=== PATIENT | female | born 1950 | race Caucasian/White ===

== ENCOUNTER 2017-09-11 11:50 | Inpatient (IN) | payer OTHER, MEDICARE ==
[~2017-09-11] VITALS: Ht 165.1 cm; Wt 50.0 kg
[2017-09-11] VITALS (7 sets, daily range): BP systolic 106–126; BP diastolic 55–62; PULSE 107–119; RESP 18–24; TEMP 97.8–98.5; O2SAT 97–100
[~2017-09-11 11:50] MED LIST: FLUTI110I INH; LEVO750T3 PO; PRED20 PO; ROLLER WALKER1 MI1; SPIRCAP INH; VENTAER INH
--- NOTE | 2017-09-11 12:28 | PD ---
HPI Chief Complaint: General Weakness Time Seen by Provider: 12:09 Travel History International Travel<30 days: No Contact w/Intl Traveler<30days: No Traveled to known affect area: No History of Present Illness HPI 66 years old female complains of generalized malaise and weakness. Patient states that the symptoms started months ago. Patient states that the symptom is worse today. Patient complains of chronic cough from time. Patient denies any headache. Patient denies any chest pain or shortness of breath. Patient denies abdominal pain. Patient denies any nausea vomiting diarrhea. Patient denies any dysuria or frequency. Patient states that she had chronic ulcer lesions on the feet. Patient has been seen by personal physician for that. Patient states that she is not on any antibiotics recently. Patient has history of COPD. Patient is a smoker. EMS was called this morning. Accu-Chek blood sugar at the scene was 37. Patient was given D10 by EMS. Recheck blood sugar 170. Patient denies any history of diabetes or taking any diabetic medication. Patient denies any history of hypoglycemia. Patient states that she has not been eating much or drinking much recently. Patient denies any fever chills. Patient complains of burning pain on the right foot. PFSH Past Medical History Respiratory: Yes Social History Tobacco Use: No Allergies-Medications (Allergen,Severity, Reaction): Coded Allergies: No Known Allergies (Verified Allergy, Unknown, 07/24/17) Reported Meds & Prescriptions Reported Meds & Active Scripts Active Roller Walker (Misc. Devices) 1 Mis Mis Ea .ROUTE NOW With seat if possible. Ventolin Hfa 18 GM Inh (Albuterol Sulfate) 90 Mcg/Act Aer 2 Puff INH Q4-6H PRN 30 Days Review of Systems General / Constitutional: No: Fever Eyes: No: Visual changes HENT: No: Headaches Cardiovascular: No: Chest Pain or Discomfort Respiratory: No: Shortness of Breath Gastrointestinal: No: Abdominal Pain Genitourinary: No: Dysuria Musculoskeletal: Positive: Pain Skin: No Rash Neurologic: No: Weakness Psychiatric: No: Depression Endocrine: No: Polydipsia Hematologic/Lymphatic: No: Easy Bruising Physical Exam Narrative GENERAL: Thin patient, no acute distress. SKIN: Focused skin assessment warm/dry. HEAD: Normocephalic. EYES: No scleral icterus. No injection or drainage. NECK: Supple, trachea midline. No JVD or lymphadenopathy. CARDIOVASCULAR: Regular rate and rhythm without murmurs, gallops, or rubs. RESPIRATORY: Breath sounds equal bilaterally. No accessory muscle use. GASTROINTESTINAL: Abdomen soft, non-tender, nondistended. MUSCULOSKELETAL: No cyanosis, or edema. Patient has several healing ulcers on the right foot with mild redness noted in the lateral aspect the right foot. BACK: Nontender without obvious deformity. No CVA tenderness. Neurologic exam: Patient's awake and alert oriented 3. No obvious focal neurological deficit. Data Data Last Documented VS Vital Signs Date Time Temp Pulse Resp B/P (MAP) Pulse Ox O2 Delivery O2 Flow Rate FiO2 09/11/17 14:40 22 99 Room Air 09/11/17 14:38 98.5 119 106/59 (75) Orders Orders Lactic Acid (09/11/17 12:18) Electrocardiogram (09/11/17 12:19) Complete Blood Count With Diff (09/11/17 12:19) Comprehensive Metabolic Panel (09/11/17 12:19) Creatine Kinase (Cpk) (09/11/17 12:19) Troponin I (09/11/17 12:19) B-Type Natriuretic Peptide (09/11/17 12:19) Prothrombin Time / Inr (Pt) (09/11/17 12:19) Act Partial Throm Time (Ptt) (09/11/17 12:19) Blood Culture (09/11/17 12:19) Urinalysis - C+S If Indicated (09/11/17 12:19) Thyroid Stimulating Hormone (09/11/17 12:19) Chest, Single Ap (09/11/17 12:19) Iv Access Insert/Monitor (09/11/17 12:19) Ecg Monitoring (09/11/17 12:19) Oximetry (09/11/17 12:19) Sodium Chlor 0.9% 1000 Ml Inj (Ns 1000 M (09/11/17 12:30) Dextrose 50% In [place] (Vial) Inj (D50w (Vi (09/11/17 13:30) Dext 5%-Nacl 0.45% 1000 Ml Inj (D5w-1/2 (09/11/17 13:30) D5-Ns + Kcl 20 Meq Inj (D5-Ns + Kcl 20 M (09/11/17 14:30) Potassium Chloride (Kcl) (09/11/17 14:30) Potassium Chlor 20 Meq Premix (Kcl 20 Me (09/11/17 14:30) Potassium Chloride Eff (K-Lyte Cl Eff) (09/11/17 15:30) Admit Order (Ed Use Only) (09/11/17 16:18) Labs Laboratory Tests Test 09/11/17 13:33 09/11/17 13:38 09/11/17 14:30 White Blood Count 8.4 TH/MM3 Red Blood Count 3.10 MIL/MM3 Hemoglobin 11.3 GM/DL Hematocrit 34.9 % Mean Corpuscular Volume 112.5 FL Mean Corpuscular Hemoglobin 36.5 PG Mean Corpuscular Hemoglobin Concent 32.5 % Red Cell Distribution Width 17.2 % Platelet Count 107 TH/MM3 Mean Platelet Volume 8.4 FL Neutrophils (%) (Auto) 90.3 % Lymphocytes (%) (Auto) 3.8 % Monocytes (%) (Auto) 4.9 % Eosinophils (%) (Auto) 0.7 % Basophils (%) (Auto) 0.3 % Neutrophils # (Auto) 7.6 TH/MM3 Lymphocytes # (Auto) 0.3 TH/MM3 Monocytes # (Auto) 0.4 TH/MM3 Eosinophils # (Auto) 0.1 TH/MM3 Basophils # (Auto) 0.0 TH/MM3 CBC Comment AUTO DIFF Differential Total Cells Counted 100 Neutrophils % (Manual) 81 % Band Neutrophils % 10 % Lymphocytes % 5 % Monocytes % 4 % Neutrophils # (Manual) 7.6 TH/MM3 Differential Comment FINAL DIFF MANUAL Platelet Estimate LOW Platelet Morphology Comment NORMAL Target Cells 1+ Stomatocytes 1+ Prothrombin Time 66.3 SEC Prothromb Time International Ratio 6.6 RATIO Activated Partial Thromboplast Time 50.4 SEC Blood Urea Nitrogen 7 MG/DL Creatinine 0.31 MG/DL Random Glucose 70 MG/DL Total Protein 5.6 GM/DL Albumin 2.3 GM/DL Calcium Level 7.6 MG/DL Alkaline Phosphatase 370 U/L Aspartate Amino Transf (AST/SGOT) 220 U/L Alanine Aminotransferase (ALT/SGPT) 58 U/L Total Bilirubin 1.5 MG/DL Sodium Level 123 MEQ/L Potassium Level 2.5 MEQ/L Chloride Level 85 MEQ/L Carbon Dioxide Level 17.7 MEQ/L Anion Gap 20 MEQ/L Estimat Glomerular Filtration Rate 214 ML/MIN Total Creatine Kinase 120 U/L Troponin I LESS THAN 0.02 NG/ML B-Type Natriuretic Peptide 66 PG/ML Thyroid Stimulating Hormone 3rd Gen 0.672 uIU/ML Lactic Acid Level 1.2 mmol/L Urine Color YELLOW Urine Turbidity CLEAR Urine pH 5.5 Urine Specific [place] 1.020 Urine Protein 30 mg/dL Urine Glucose (UA) 70 mg/dL Urine Ketones 150 mg/dL Urine Occult Blood SMALL Urine Nitrite NEG Urine Bilirubin SMALL Urine Urobilinogen 2.0 MG/DL Urine Leukocyte Esterase NEG Urine RBC 1 /hpf Urine WBC 1 /hpf Urine Mucus FEW /lpf Microscopic Urinalysis Comment CULT NOT INDICATED Urine Opiates Screen NEG Urine Barbiturates Screen NEG Urine Amphetamines Screen NEG Urine Benzodiazepines Screen NEG Urine Cocaine Screen NEG Urine Cannabinoids Screen NEG MDM Medical Decision Making Medical Screen Exam Complete: Yes Emergency Medical Condition: Yes Interpretation(s) Last Impressions Chest X-Ray 09/11/17 1219 Signed Impressions: Service Date/Time: September 12:36 - CONCLUSION: 1. Old bilateral rib fractures. 2. No acute cardiomegaly disease. Brian De Souza MD 1515 p.m. CBC WBC 8.4. Hemoglobin 7.3 hematocrit 34.9. MCV 112.5. 90 neutrophil. Sodium 123. Potassium 2.5. Chloride 85. Bicarbonate 17.7. Anion gap 20. Creatinine 0.31. Glucose 70. Lactate acid 1.2. Calcium 7.6. Total bili 1.5. AST 220. ALT 58. Alk phosphatase 370. Cardiac enzymes are normal. INR 6.6. UA negative. Differential Diagnosis Differential diagnosis including hypoglycemia, dehydration, electrolyte imbalance, pneumonia, UTI, sepsis. Narrative Course 66 years old female with generalized malaise and weakness, history of COPD. Patient was hypoglycemic this morning. Patient was given D10 by EMS. KCl 40 mEq by mouth given. KCl 20 mEq IV given. D5 normal saline solution with 20 KCl per liter at 100 cc an hour. Diagnosis Primary Impression: Hyponatremia Additional Impressions: Hypokalemia Coagulopathy Hypoglycemia Transaminitis Admitting Information Admitting Physician Requests: Admit Eleno Purcell MD Sep 11, 2017 12:28
[2017-09-11] MEDS ORDERED: SODIUM CHLOR 0.9% 1000 ML INJ 1,000 ML IV ONE (12:30)
--- NOTE | 2017-09-11 13:03 | RADRPT ---
EXAM DATE/TIME: 09/11/2017 12:36 [facility] COMPARISON: No previous studies available for comparison. INDICATIONS : Shortness of breath and dizziness. MEDICAL HISTORY : None. SURGICAL HISTORY : None. ENCOUNTER: Initial ACUITY: 2 days PAIN SCORE: 0/10 LOCATION: Bilateral chest FINDINGS: A single view of the chest demonstrates the lungs to be symmetrically aerated without evidence of mas s, infiltrate or effusion. The cardiomediastinal contours are unremarkable. Multiple deformities of the lower ribs bilaterally consistent with prior fractures. CONCLUSION: 1. Old bilateral rib fractures. 2. No acute cardiomegaly disease. Brian De Souza MD on September 11, 2017 at 12:49 Board Certified Radiologist. This report was verified electronically.
[2017-09-11] MEDS ORDERED: DEXTROSE 50% IN WATER 50 ML VIAL(D50) IV PUSH ONE (13:30)
[2017-09-11] MEDS ORDERED: DEXT 5%-NACL 0.45% 1000 ML INJ 1,000 ML IV SCH (13:30)
[2017-09-11 13:57] LABS: AUTOMATED NEUTROPHIL # 7.6 TH/MM3 (1.8-7.7); BASOPHIL % 0.3 % (0.0-2.0); EOSINOPHIL # 0.1 TH/MM3 (0-0.4); EOSINOPHIL % 0.7 % (0.0-4.0); HEMATOCRIT 34.9 % (35.0-46.0); HEMOGLOBIN 11.3 GM/DL (11.6-15.3); LYMPH % 3.8 % (9.0-44.0); LYMPHOCYTE # 0.3 TH/MM3 (1.0-4.8); MEAN CELL VOLUME 112.5 FL (80.0-100.0); MEAN CORPUSCULAR HEMOGLOBIN 36.5 PG (27.0-34.0); MEAN CORPUSCULAR HGB CONC 32.5 % (32.0-36.0); MEAN PLATELET VOLUME 8.4 FL (7.0-11.0); MONO % 4.9 % (0.0-8.0); MONOCYTE # 0.4 TH/MM3 (0-0.9); NEUT % 90.3 % (16.0-70.0); PLATELET COUNT 107 TH/MM3 (150-450); RED CELL DISTRIBUTION WIDTH 17.2 % (11.6-17.2); WHITE BLOOD COUNT 8.4 TH/MM3 (4.0-11.0)
[2017-09-11 14:08] LABS: PROTHROMBIN TIME - PATIENT 66.3 SEC (9.8-11.6)
[2017-09-11 14:12] LABS: INTERNATIONAL NORMALIZED RATIO 6.6 RATIO
[2017-09-11 14:13] LABS: ALBUMIN 2.3 GM/DL (3.4-5.0); AST (GOT) 220 U/L (15-37); BICARBONATE 17.7 MEQ/L (21.0-32.0); BLOOD UREA NITROGEN 7 MG/DL (7-18); CALCIUM 7.6 MG/DL (8.5-10.1); CHLORIDE 85 MEQ/L (98-107); CREATININE 0.31 MG/DL (0.50-1.00); GLOMERULAR FILTRATION RATE 214 ML/MIN (>89); GLUCOSE,RANDOM 70 MG/DL (74-106)
[2017-09-11 14:16] LABS: ALKALINE PHOSPHATASE 370 U/L (45-117); ALT (GPT) 58 U/L (10-53); TOTAL BILIRUBIN ADULT 1.5 MG/DL (0.2-1.0); TOTAL PROTEIN 5.6 GM/DL (6.4-8.2); TROPONIN I LESS THAN 0.02 NG/ML (0.02-0.05)
[2017-09-11 14:18] LABS: SODIUM (NA) 123 MEQ/L (136-145)
[2017-09-11] MEDS: POTASSIUM CHLORIDE 20 MEQ CONTROLLED RELEASE TAB PO ONE ×2 (14:30→14:53)
[2017-09-11] MEDS ORDERED: POTASSIUM CHLOR 20 MEQ PREMIX 100 ML IV ONE (14:30)
[2017-09-11 14:33] LABS: BANDS 10 % (0-6); LYMPHOCYTES 5 % (9-44); MONOCYTES 4 % (0-8); NEUTROPHIL # MANUAL DIFF 7.6 TH/MM3 (1.8-7.7); POLYS (SEG NEUTROPHILS) 81 % (16-70); TARGET CELLS 1+ (NORMAL)
[2017-09-11 14:34] LABS: STOMATOCYTES 1+ (NORMAL)
[2017-09-11 15:04] LABS: BILIRUBIN, URINE SMALL (NEG); BLOOD, URINE SMALL (NEG); GLUCOSE,URINE 70 mg/dL (NEG); KETONE, URINE 150 mg/dL (NEG); MUCUS URINE FEW /lpf (OCC); NITRITE,URINE NEG (NEG); PH, URINE 5.5 (5.0-8.5); URINE COLOR YELLOW (YELLW/STRAW); URINE LEUKOCYTE ESTERASE NEG (NEG)
[2017-09-11] MEDS ORDERED: POTASSIUM CHLORIDE 25 MEQ EFFERVESCENT TAB PO ONE (15:30)
[2017-09-11] MEDS: D5-NS + KCL 20 MEQ INJ 1,000 ML IV SCH ×2 (16:22→22:43)
[2017-09-11] MEDS ORDERED: LACTULOSE SYRUP 20 GM/30 ML CUP PO PRN (16:30)
[2017-09-11] MEDS ORDERED: SENNOSIDES 8.6 MG TAB PO PRN (16:30)
[2017-09-11] MEDS ORDERED: NALOXONE HCL 0.4 MG/ML AMP IV PUSH PRN (16:30)
[2017-09-11] MEDS ORDERED: MAGNESIUM HYDROXIDE SUSP 30 ML CUP PO PRN (16:30)
[2017-09-11] MEDS ORDERED: ONDANSETRON HCL 4 MG/2 ML VIAL IVP PRN (16:30)
[2017-09-11] MEDS ORDERED: BISACODYL 10 MG SUPP RECTAL PRN (16:30)
[2017-09-11] MEDS ORDERED: SODIUM CHLORIDE 0.9% FLUSH 10 ML FLUSH IV FLUSH PRN (16:30)
--- NOTE | 2017-09-11 18:31 | HHI.HP ---
[facility] No Primary Care Physician Admission Diagnosis hyponatremia. Hypokalemia. Hypoglycemia. Coagulopathy. Transamin Diagnoses: Chief Complaint: I feel very tired and fatigued Travel History International Travel<30 Days: No Contact w/Intl Traveler <30 Da: No Traveled to Known Affected Are: No History of Present Illness 66 years old female presented to the ED complaining of worsening generalized malaise and weakness, in general patient looks older than her real age, very fatigued, barely answering question unable to talk. She stated the symptoms has been going on for several months, almost 5, patient stated she used to drink alcohol but she stopped about 3 months ago however she takes what she called a "goody powder"she told me this is like aspirin for arthritis. In ED she was found to have metabolic acidosis anion gap, also she had episodes of hypoglycemia blood glucose dropped to 37 while she was on the way to the hospital she got the 10 by the lab clerk and blood sugar improved to 170. Patient denied any other [id number] medication or prescriptions medication. She stated she is been eating and drinking well recently. Patient denied any fever or chills chest pain, she complained of burning pain in her feet, also patient told me she has a history of lupus and possibly diabetes mellitus but she is not sure she smoked 3 cigarettes a day Review of Systems All systems reviewed and was positive for what is mentioned in history of present illness otherwise negative Past Family Social History Past Medical History Questionable diabetes mellitus Lupus Past Surgical History Not aware of previous surgery Allergies: Coded Allergies: No Known Allergies (Verified Allergy, Unknown, 07/24/17) Family History Review with the patient,not aware of significant medical history runs in his family Social History Smoke 3 cigarettes a day, quit drinking alcohol 3 months ago no substance abuse Physical Exam Vital Signs Vital Signs Date Time Temp Pulse Resp B/P (MAP) Pulse Ox O2 Delivery O2 Flow Rate FiO2 09/11/17 16:56 98 21 09/11/17 14:40 22 99 Room Air 09/11/17 14:38 98.5 119 22 106/59 (75) 99 Room Air 09/11/17 11:57 97.8 118 22 126/58 (80) 98 Room Air Physical Exam GENERAL: This is a 66 years old female looks older than her real age, in no apparent distress. SKIN: No rashes, warm and dry HEAD: Atraumatic. Normocephalic. EYES: Pupils equal round and reactive. Extraocular motions intact. No scleral icterus. ENT: Nose without bleeding, or drainage, Airway patent. NECK: Trachea midline. Supple CARDIOVASCULAR: Regular rate and rhythm without murmurs, gallops, or rubs. RESPIRATORY: Fair air entry bilaterally. No wheezes, rales, or rhonchi. GASTROINTESTINAL: Abdomen soft, non-tender, nondistended. Positive bowel sounds MUSCULOSKELETAL: Extremities without clubbing, cyanosis, trace edema. Pedal pulses appreciated NEUROLOGICAL: Awake and alert. Moves all extremity. Normal speech.no focal neurological deficit Laboratory Laboratory Tests Test 09/11/17 13:33 09/11/17 13:38 09/11/17 14:30 09/11/17 16:48 White Blood Count 8.4 Red Blood Count 3.10 Hemoglobin 11.3 Hematocrit 34.9 Mean Corpuscular Volume 112.5 Mean Corpuscular Hemoglobin 36.5 Mean Corpuscular Hemoglobin Concent 32.5 Red Cell Distribution Width 17.2 Platelet Count 107 Mean Platelet Volume 8.4 Neutrophils (%) (Auto) 90.3 Lymphocytes (%) (Auto) 3.8 Monocytes (%) (Auto) 4.9 Eosinophils (%) (Auto) 0.7 Basophils (%) (Auto) 0.3 Neutrophils # (Auto) 7.6 Lymphocytes # (Auto) 0.3 Monocytes # (Auto) 0.4 Eosinophils # (Auto) 0.1 Basophils # (Auto) 0.0 CBC Comment AUTO DIFF Differential Total Cells Counted 100 Neutrophils % (Manual) 81 Band Neutrophils % 10 Lymphocytes % 5 Monocytes % 4 Neutrophils # (Manual) 7.6 Differential Comment FINAL DIFF MANUAL Platelet Estimate LOW Platelet Morphology Comment NORMAL Target Cells 1+ Stomatocytes 1+ Prothrombin Time 66.3 Prothromb Time International Ratio 6.6 Activated Partial Thromboplast Time 50.4 Blood Urea Nitrogen 7 Creatinine 0.31 Random Glucose 70 Total Protein 5.6 Albumin 2.3 Calcium Level 7.6 Alkaline Phosphatase 370 Aspartate Amino Transf (AST/SGOT) 220 Alanine Aminotransferase (ALT/SGPT) 58 Total Bilirubin 1.5 Sodium Level 123 Potassium Level 2.5 Chloride Level 85 Carbon Dioxide Level 17.7 Anion Gap 20 Estimat Glomerular Filtration Rate 214 Total Creatine Kinase 120 Troponin I LESS THAN 0.02 Thyroid Stimulating Hormone 3rd Gen 0.672 Lactic Acid Level 1.2 Urine Color YELLOW Urine Turbidity CLEAR Urine pH 5.5 Urine Specific [place] 1.020 Urine Protein 30 Urine Glucose (UA) 70 Urine Ketones 150 Urine Occult Blood SMALL Urine Nitrite NEG Urine Bilirubin SMALL Urine Urobilinogen 2.0 Urine Leukocyte Esterase NEG Urine RBC 1 Urine WBC 1 Urine Mucus FEW Microscopic Urinalysis Comment CULT NOT INDICATED Urine Opiates Screen NEG Urine Barbiturates Screen NEG Urine Amphetamines Screen NEG Urine Benzodiazepines Screen NEG Urine Cocaine Screen NEG Urine Cannabinoids Screen NEG Blood Gas Puncture Site LT RADIAL Blood Gas Patient Temperature 98.6 Blood Gas HCO3 18 Blood Gas Base Excess -6.0 Blood Gas Oxygen Saturation 94 Arterial Blood pH 7.41 Arterial Blood Partial Pressure CO2 29 Arterial Blood Partial Pressure O2 86 Arterial Blood Oxygen Content 13.6 Arterial Blood Carboxyhemoglobin 2.1 Arterial Blood Methemoglobin 0.6 Blood Gas Hemoglobin 10.2 Oxygen Delivery Device RA Date/Time Source Procedure Growth Status 09/11/17 13:30 Blood Peripheral Aerobic Blood Culture Pending Received 09/11/17 13:30 Blood Peripheral Anaerobic Blood Culture Pending Received Result Diagram: 09/11/17 1333 09/11/17 1333 Imaging Last Impressions Lower Extremity Ultrasound 09/12/17 0000 Signed Impressions: Service Date/Time: Tuesday, September 12, 2017 11:23 - CONCLUSION: 1. No sonographic evidence for lower extremity DVT. Brian De Souza MD Chest X-Ray 09/11/17 1219 Signed Impressions: Service Date/Time: September 12:36 - CONCLUSION: 1. Old bilateral rib fractures. 2. No acute cardiomegaly disease. Brian De Souza MD Caprini VTE Risk Assessment Caprini VTE Risk Assessment: Mod/High Risk (score >= 2) Caprini Risk Assessment Model Point Value = 1 Point Value = 2 Point Value = 3 Point Value = 5 Age 41-60 Minor surgery BMI > 25 kg/m2 Swollen legs Varicose veins or History of unexplained or recurrent spontaneous Oral contraceptives or hormone replacement Sepsis (< 1 month) Serious lung disease, including pneumonia (< 1 month) Abnormal pulmonary function Acute myocardial infarction Congestive heart failure (< 1 month) History of inflammatory bowel disease Medical patient at bed rest Age 61-74 Arthroscopic surgery Major open surgery (> 45 min) Laparoscopic surgery (> 45 min) Malignancy Confined to bed (> 72 hours) Immobilizing plaster cast Central venous access Age >= 75 History of VTE Family history of VTE Factor V Leiden Prothrombin [id number] Lupus anticoagulant Anticardiolipin antibodies Elevated serum homocysteine Heparin-induced thrombocytopenia Other congenital or acquired thrombophilia Stroke (< 1 month) Elective arthroplasty Hip, pelvis, or leg fracture Acute spinal cord injury (< 1 month) Prophylaxis Regimen Total Risk Factor Score Risk Level Prophylaxis Regimen 0-1 Low Early ambulation 2 Moderate Order ONE of the following: *Sequential Compression Device (SCD) *Heparin 5000 units SQ BID 3-4 Higher Order ONE of the following medications: *Heparin 5000 units SQ TID *Enoxaparin/Lovenox 40 mg SQ daily (WT < 150 kg, CrCl > 30 mL/min) *Enoxaparin/Lovenox 30 mg SQ daily (WT < 150 kg, CrCl > 10-29 mL/min) *Enoxaparin/Lovenox 30 mg SQ BID (WT < 150 kg, CrCl > 30 mL/min) AND/OR *Sequential Compression Device (SCD) 5 or more Highest Order ONE of the following medications: *Heparin 5000 units SQ TID (Preferred with Epidurals) *Enoxaparin/Lovenox 40 mg SQ daily (WT < 150 kg, CrCl > 30 mL/min) *Enoxaparin/Lovenox 30 mg SQ daily (WT < 150 kg, CrCl > 10-29 mL/min) *Enoxaparin/Lovenox 30 mg SQ BID (WT < 150 kg, CrCl > 30 mL/min) AND *Sequential Compression Device (SCD) Assessment and Plan Assessment and Plan Severe hyponatremia Severe hypokalemia Benign gap metabolic acidosis Hypoglycemic episode Coagulopathy INR 6.6 Elevated transaminases with alkaline phosphatase DVT prophylaxis no chemical Plan Admit with telemetry floor with close monitoring Potassium carbonate boluses being given Placed on IV fluid dextrose D10 with KCl normal saline frequent monitoring blood sugar Regular monitor BMP Repeat INR PTT in a.m. Hepatitis panel with liver ultrasound ABG with toxic drug screen Physician Certification 2 Midnight Certification Type: Admission for Inpatient Services Order for Inpatient Services The services are ordered in accordance with Medicare regulations or non- Medicare payer requirements, as applicable. In the case of services not specified as inpatient-only, they are appropriately provided as inpatient services in accordance with the 2-midnight benchmark. Estimated LOS (days): 3 days is the estimated time the patient will need to remain in the hospital, assuming treatment plan goals are met and no additional complications. Post-Hospital Plan: SNF Leah Freeman MD Sep 11, 2017 18:31
[2017-09-11] MEDS: DOCUSATE SODIUM 50 MG/SENNA 8.6 MG TAB PO SCH (21:00)
[2017-09-11] MEDS ORDERED: CHLORHEXIDINE GLUCONATE 2 % 1 PACK (2 CLOTHS)(extra cloths) TOPICAL PRN (22:30)
[2017-09-11] MEDS: SODIUM CHLORIDE 0.9% FLUSH 10 ML FLUSH IV FLUSH SCH (22:42)
[2017-09-12] VITALS (19 sets, daily range): BP systolic 96–132; BP diastolic 53–77; PULSE 96–133; RESP 20–24; TEMP 98.5–99; O2SAT 92–98
[2017-09-12] MEDS ORDERED: POTASSIUM CHLORIDE 25 MEQ EFFERVESCENT TAB PO ONE (00:30)
[2017-09-12] MEDS: CHLORHEXIDINE GLUCONATE 2 % 1 PACK (2 CLOTHS)(taper/protocol) TOPICAL SCH (04:37)
[2017-09-12 06:00] LABS: AUTOMATED NEUTROPHIL # 5.3 TH/MM3 (1.8-7.7); BASOPHIL % 0.3 % (0.0-2.0); EOSINOPHIL % 0.3 % (0.0-4.0); HEMATOCRIT 31.8 % (35.0-46.0); HEMOGLOBIN 10.7 GM/DL (11.6-15.3); LYMPH % 5.9 % (9.0-44.0); LYMPHOCYTE # 0.3 TH/MM3 (1.0-4.8); MEAN CELL VOLUME 109.8 FL (80.0-100.0); MEAN CORPUSCULAR HGB CONC 33.7 % (32.0-36.0); MEAN PLATELET VOLUME 8.7 FL (7.0-11.0); MONO % 3.6 % (0.0-8.0); MONOCYTE # 0.2 TH/MM3 (0-0.9); NEUT % 89.9 % (16.0-70.0); PLATELET COUNT 73 TH/MM3 (150-450); RED CELL DISTRIBUTION WIDTH 16.6 % (11.6-17.2); WHITE BLOOD COUNT 5.9 TH/MM3 (4.0-11.0)
[2017-09-12 06:05] LABS: INTERNATIONAL NORMALIZED RATIO 2.4 RATIO; PROTHROMBIN TIME - PATIENT 24.4 SEC (9.8-11.6)
[2017-09-12] MEDS: DOCUSATE SODIUM 50 MG/SENNA 8.6 MG TAB PO SCH ×2 (09:00→21:00)
[2017-09-12 09:41] LABS: BANDS 8 % (0-6); LYMPHOCYTES 2 % (9-44); NEUTROPHIL # MANUAL DIFF 5.8 TH/MM3 (1.8-7.7); POLYS (SEG NEUTROPHILS) 90 % (16-70)
[2017-09-12 09:43] LABS: STOMATOCYTES 1+ (NORMAL)
[2017-09-12 10:10] LABS: ALBUMIN 1.9 GM/DL (3.4-5.0); CALCIUM 7.9 MG/DL (8.5-10.1); CREATININE 0.29 MG/DL (0.50-1.00); DIRECT BILIRUBIN ADULT 1.3 MG/DL (0.0-0.2); INDIRECT BILIRUBIN 0.9 MG/DL (0.0-0.8); TOTAL BILIRUBIN ADULT 2.2 MG/DL (0.2-1.0); TOTAL PROTEIN 4.6 GM/DL (6.4-8.2)
[2017-09-12] MEDS ORDERED: POTASSIUM CHLOR 40 MEQ PREMIX 100 ML IV ONE (10:45)
[2017-09-12] MEDS: SODIUM CHLORIDE 0.9% FLUSH 10 ML FLUSH IV FLUSH SCH ×2 (11:22→21:55)
[2017-09-12] MEDS: D5-NS + KCL 20 MEQ INJ 1,000 ML IV SCH ×2 (11:22→22:30)
[2017-09-12 12:34] LABS: MAGNESIUM 1.1 MG/DL (1.5-2.5)
--- NOTE | 2017-09-12 13:09 | RADRPT ---
EXAM DATE/TIME: 09/12/2017 11:23 [facility] COMPARISON: No previous studies available for comparison. INDICATIONS : Bilateral leg pain. MEDICAL HISTORY : Respiratory disorders. COPD. Asthma. Chicken pox. Measels. Eye problems. Dental problems. Claustropho anabel. Tobacco use. SURGICAL HISTORY : Tubal ligation. Left hip. Vericose vein. ENCOUNTER: Initial ACUITY: 3 months PAIN SCORE: 10/10 LOCATION: Bilateral legs. TECHNIQUE: Venous ultrasound of the left and right leg was performed from the inguinal ligament to the proximal calf. Real-time, color Doppler and spectral tracing, compression and augmentation techniques were us ed. FINDINGS: RIGHT LEG: There is normal compressibility of the deep venous system from the inguinal region to the proximal ca lf. No echogenic clot is seen in the lumen of the common femoral, femoral, popliteal, and posterior tibial veins. There is a normal response of the venous system to proximal and distal augmentation an d respiration. LEFT LEG: There is normal compressibility of the deep venous system from the inguinal region to the proximal ca lf. No echogenic clot is seen in the lumen of the common femoral, femoral, popliteal, and posterior tibial veins. There is a normal response of the venous system to proximal and distal augmentation an d respiration. CONCLUSION: 1. No sonographic evidence for lower extremity DVT. Brian De Souza MD on September 12, 2017 at 13:04 Board Certified Radiologist. This report was verified electronically.
[2017-09-12] MEDS: POTASSIUM CHLOR 20 MEQ PREMIX 100 ML IV SCH ×2 (13:42→15:45)
--- NOTE | 2017-09-12 14:54 | HHI.PR ---
Subjective Remarks Patient resting in bed still look weak and fatigued Patient has been having worsening diarrhea potassium still at 2.5 sodium improved to 1:30 INR normalized to 2.4 Patient sleeping, woke up to voice answer very simple questions, her INR dropped to 2.4 Objective Vitals Vital Signs Date Time Temp Pulse Resp B/P (MAP) Pulse Ox O2 Delivery O2 Flow Rate FiO2 09/12/17 14:00 103 20 109/60 (76) 94 09/12/17 14:00 103 09/12/17 13:00 109 09/12/17 13:00 109 108/56 (73) 95 09/12/17 12:00 113 09/12/17 12:00 99.0 113 22 130/65 (86) 95 09/12/17 11:00 121 09/12/17 11:00 121 130/68 (88) 97 09/12/17 10:00 118 22 132/69 (90) 94 09/12/17 10:00 118 09/12/17 09:00 133 09/12/17 09:00 133 101/70 (80) 95 09/12/17 08:51 96 21 09/12/17 08:00 98.6 100 24 97/53 (68) 95 09/12/17 08:00 100 09/12/17 07:00 102 09/12/17 07:00 102 99/55 (70) 98 09/12/17 06:00 96 09/12/17 04:00 98.6 120 130/77 (94) 96 09/12/17 04:00 107 09/12/17 02:00 107 09/12/17 00:00 98 09/12/17 00:00 98.5 98 22 110/60 (77) 98 09/11/17 22:45 97 09/11/17 22:00 98.3 107 24 122/55 (77) 99 09/11/17 22:00 107 09/11/17 21:38 112 18 115/58 (77) 98 Room Air 09/11/17 17:00 108 23 108/62 (77) 100 Room Air 09/11/17 16:56 98 21 I/O 09/11/17 09/11/17 09/11/17 09/12/17 09/12/17 09/12/17 06:59 14:59 22:59 06:59 14:59 22:59 Intake Total 1100 ml 480 ml Balance 1100 ml 480 ml Intake Oral 480 ml IV Total 1100 ml # Voids 1 # Bowel Movements 1 1 4 Result Diagram: 09/12/17 0520 09/12/17 0840 Objective Remarks GENERAL: This is a frail elderly lady in no apparent distress. CARDIOVASCULAR: Regular rate and rhythm without murmurs, gallops, or rubs. RESPIRATORY: Fair air entry bilaterally. No wheezes, rales, or rhonchi. GASTROINTESTINAL: Abdomen soft, non-tender, nondistended. Normal active bowel sounds MUSCULOSKELETAL: Extremities without clubbing, cyanosis, trace edema NEURO: Sleepy woke up to voice oriented to place only, Moves all ext x4 A/P Assessment and Plan 09/11: Continue close monitoring to electrolyte, BMP, may consider GI consult if liver failure not improving, will check C. difficile for acute diarrhea a/p: Acute diarrhea rule out C. difficile Severe hyponatremia- sodium improved to 1:30 Severe hypokalemia- still at 2.5 Benign gap metabolic acidosis- normalized resolved Hypoglycemic episode- blood glucose stable Coagulopathy INR 6.6- normalized to 2.4 Elevated transaminases with alkaline phosphatase DVT prophylaxis no chemical Plan Continue replacing potassium aggressively with iv andpo, check magnesium level was 1.1 we'll give iv magnesium sulfate repeat BMP in a.m. Potassium carbonate boluses being given Placed on IV fluid dextrose D10 with KCl normal saline frequent monitoring blood sugar Regular monitor BMP Repeat INR PTT in a.m. Hepatitis panel with liver ultrasound ABG with toxic drug screen Leah Freeman MD Sep 12, 2017 14:54
--- NOTE | 2017-09-12 19:29 | EKG ---
Date Performed: 09/11/2017 Time Performed: 16:04:20 PTAGE: 66 years EKG: SINUS TACHYCARDIA BASELINE ARTIFACT POOR R WAVE PROGRESSION, PROBABLY DUE TO LEAD PLACEMENT CANNOT EXCLUDE OLD ANTEROSEPTAL CA ABNORMAL RHYTHM ECG NO PREVIOUS TRACING DOCTOR: Arnulfo Loya Interpretating Date/Time 09/12/2017 19:28:40
[2017-09-12] MEDS: MAGNESIUM SULFAT 1 GM PREMIX 100 ML x2 bags IV SCH ×2 (20:59→21:55)
--- NOTE | 2017-09-12 21:22 | RADRPT ---
EXAM DATE/TIME: 09/12/2017 18:26 [facility] COMPARISON: No previous studies available for comparison. INDICATIONS : Increased labs. MEDICAL HISTORY : Respiratory disorders. COPD. Asthma. Chicken pox. Measels. Eye problems. Dental problems. Claustropho anabel. Tobacco use. SURGICAL HISTORY : Tubal ligation. Left hip. Vericose vein. ENCOUNTER: Initial ACUITY: 1 day PAIN SCORE: 2/10 LOCATION: Bilateral upper quadrant MEASUREMENTS: LIVER: 18.8 cm length COMMON DUCT: 6 mm RIGHT KIDNEY: 12.4 x 3.9 x 4.5 cm SPLEEN: 6.2 cm length FINDINGS: LIVER: The liver is enlarged and demonstrates diffuse fatty infiltration. No focal mass is noted. No biliary ductal dilatation is noted. Hepatopetal flow is noted within the portal vein. COMMON DUCT: No intraluminal mass or stone visualized. GALLBLADDER: Contains no stones, demonstrates no wall thickening or pericholecystic fluid. PANCREAS: The visualized portions are within normal limits. RIGHT KIDNEY: No hydronephrosis, stone or mass. SPLEEN: No focal lesion. CONCLUSION: Enlarged fatty liver. Bilateral pleural effusions. Javier Adam MD on September 12, 2017 at 21:18 Board Certified Radiologist. This report was verified electronically.
[2017-09-13] VITALS (19 sets, daily range): BP systolic 98–123; BP diastolic 59–72; PULSE 95–125; RESP 17–20; TEMP 97.6–99.1; O2SAT 85–97
[2017-09-13] MEDS ORDERED: POTASSIUM BICARBONATE 25 MEQ EFFERVESCENT TAB PO ONE (00:15)
[2017-09-13] MEDS: CHLORHEXIDINE GLUCONATE 2 % 1 PACK (2 CLOTHS)(taper/protocol) TOPICAL SCH (04:30)
[2017-09-13] MEDS: D5-NS + KCL 20 MEQ INJ 1,000 ML IV SCH (06:30)
[2017-09-13] MEDS: DOCUSATE SODIUM 50 MG/SENNA 8.6 MG TAB PO SCH ×2 (07:32→21:00)
[2017-09-13] MEDS: SODIUM CHLORIDE 0.9% FLUSH 10 ML FLUSH IV FLUSH SCH ×2 (08:15→21:06)
[2017-09-13] MEDS: NS + KCL 20 MEQ INJ 1,000 ML IV SCH ×2 (10:24→21:06)
[2017-09-13 10:46] LABS: BICARBONATE 27.8 MEQ/L (21.0-32.0); CALCIUM 7.5 MG/DL (8.5-10.1); CREATININE 0.3 MG/DL (0.50-1.00)
--- NOTE | 2017-09-13 16:42 | HHI.PR ---
Subjective Remarks Still feeling fatigued and tired but in general better than before She would like to try to start ambulating Potassium yesterday is 2.9 repeated today. 0.3, liver ultrasound show large fatty liver with bilateral pleural effusion, PT/INR was 2.4 yesterday we'll repeat today, we'll stop dextrose iv fluid her blood glucose more stable reading , advance her diet Objective Vitals Vital Signs Date Time Temp Pulse Resp B/P (MAP) Pulse Ox O2 Delivery O2 Flow Rate FiO2 09/13/17 14:00 95 09/13/17 14:00 95 98/59 (72) 96 09/13/17 13:00 107 92 09/13/17 12:00 108 09/13/17 12:00 97.7 108 114/70 (85) 85 09/13/17 11:00 119 113/71 (85) 90 09/13/17 10:00 98 108/61 (77) 95 09/13/17 10:00 98 09/13/17 09:11 94 09/13/17 09:00 98 20 102/61 (75) 94 09/13/17 08:00 117 09/13/17 08:00 97.8 117 19 117/72 (87) 92 09/13/17 06:00 106 09/13/17 04:00 96 09/13/17 04:00 99.1 96 123/68 (86) 95 09/13/17 02:00 97 09/13/17 00:00 102 09/13/17 00:00 99.0 102 20 105/65 (78) 95 09/12/17 22:00 118 09/12/17 20:53 95 21 09/12/17 20:00 125 09/12/17 20:00 98.8 125 24 127/68 (87) 94 09/12/17 18:00 101 09/12/17 18:00 101 I/O 09/12/17 09/12/17/09/2809/13/17 09/13/17 09/13/17 07:00 15:00 23:00 07:00 15:00 23:00 Intake Total 480 ml 580 ml 480 ml 600 ml Output Total 150 ml Balance 480 ml 580 ml 330 ml 600 ml Intake Oral 480 ml 480 ml 480 ml IV Total 100 ml 600 ml Output Urine Total 100 ml Stool Total 50 ml # Voids 6 1 # Bowel Movements 4 6 1 Result Diagram: 09/12/17 0520 09/13/17 1015 Objective Remarks GENERAL: This is a frail elderly lady in no apparent distress. CARDIOVASCULAR: Regular rate and rhythm without murmurs, gallops, or rubs. RESPIRATORY: Fair air entry bilaterally. No wheezes, rales, or rhonchi. GASTROINTESTINAL: Abdomen soft, non-tender, nondistended. Normal active bowel sounds MUSCULOSKELETAL: Extremities without clubbing, cyanosis, trace edema NEURO: Sleepy woke up to voice oriented to place only, Moves all ext x4 A/P Assessment and Plan 09/12: Continue close monitoring to electrolyte, BMP, may consider GI consult if liver failure not improving, will check C. difficile for acute diarrhea 09/13:Potassium yesterday is 2.9 repeated today. 0.3, liver ultrasound show large fatty liver with bilateral pleural effusion, PT/INR was 2.4 yesterday we' ll repeat today, we'll stop dextrose iv fluid her blood glucose more stable reading, advance her diet, replace potassium, repeat BMP in a.m., PT OT a/p: Acute diarrhea rule out C. difficile Severe hyponatremia- sodium improved to 1:30 Severe hypokalemia- still at 2.5 Benign gap metabolic acidosis- normalized resolved Hypoglycemic episode- blood glucose stable Coagulopathy INR 6.6- normalized to 2.4 Elevated transaminases with alkaline phosphatase DVT prophylaxis no chemical Plan Continue replacing potassium aggressively with iv andpo, check magnesium level was 1.1 we'll give iv magnesium sulfate repeat BMP in a.m. Potassium carbonate boluses being given Placed on IV fluid dextrose D10 with KCl normal saline frequent monitoring blood sugar Regular monitor BMP Repeat INR PTT in a.m. Hepatitis panel with liver ultrasound ABG with toxic drug screen Leah Freeman MD Sep 13, 2017 16:42
[2017-09-14] VITALS (11 sets, daily range): BP systolic 91–111; BP diastolic 56–65; PULSE 87–118; RESP 16–18; TEMP 97.1–98.6; O2SAT 93–98
[2017-09-14] MEDS: metroNIDAZOLE 500 MG INJ 100 ML IV SCH ×4 (00:39→17:23)
[2017-09-14] MEDS: CHLORHEXIDINE GLUCONATE 2 % 1 PACK (2 CLOTHS)(taper/protocol) TOPICAL SCH (04:00)
[2017-09-14 07:32] LABS: INTERNATIONAL NORMALIZED RATIO 1.5 RATIO; PROTHROMBIN TIME - PATIENT 14.8 SEC (9.8-11.6)
[2017-09-14 08:20] LABS: BICARBONATE 27.4 MEQ/L (21.0-32.0); BLOOD UREA NITROGEN 2 MG/DL (7-18); CALCIUM 7.4 MG/DL (8.5-10.1); CHLORIDE 99 MEQ/L (98-107); CREATININE 0.19 MG/DL (0.50-1.00); GLOMERULAR FILTRATION RATE 377 ML/MIN (>89); GLUCOSE,RANDOM 102 MG/DL (74-106); MAGNESIUM 1.3 MG/DL (1.5-2.5); PHOSPHORUS LESS THAN 0.1 MG/DL (2.5-4.9); SODIUM (NA) 134 MEQ/L (136-145)
[2017-09-14] MEDS: NS + KCL 20 MEQ INJ 1,000 ML IV SCH (08:35)
[2017-09-14] MEDS: SODIUM CHLORIDE 0.9% FLUSH 10 ML FLUSH IV FLUSH SCH ×2 (08:36→20:00)
[2017-09-14] MEDS: DOCUSATE SODIUM 50 MG/SENNA 8.6 MG TAB PO SCH (08:36)
[2017-09-14 09:58] LABS: TOTAL PROTEIN 4.3 GM/DL (6.4-8.2)
[2017-09-14] MEDS ORDERED: POTASSIUM CHLOR 20 MEQ PREMIX 100 ML IV SCH (10:00)
[2017-09-14] MEDS ORDERED: POTASSIUM CHLORIDE 25 MEQ EFFERVESCENT TAB PO ONE (10:00)
--- NOTE | 2017-09-14 10:32 | HHI.PR ---
Subjective Remarks The patient was trying to sit up in bed. She said that she has not been having any abdominal pain. She has been feeling very weak. She says she has some pain in her legs. She wants to eat something more than a liquid diet. Discussed with nursing. Objective Vitals Vital Signs Date Time Temp Pulse Resp B/P (MAP) Pulse Ox O2 Delivery O2 Flow Rate FiO2 09/14/17 09:05 98 21 09/14/17 08:00 98.3 97 18 99/58 (72) 94 09/14/17 04:05 93 09/14/17 04:00 98.3 105 18 105/65 (78) 93 09/14/17 00:01 101 09/14/17 00:00 98.6 101 18 111/61 (78) 93 09/13/17 20:14 96 09/13/17 20:00 97.6 103 18 120/70 (87) 96 09/13/17 18:30 97.8 100 18 119/64 (82) 97 09/13/17 18:00 97 09/13/17 17:00 106 17 123/67 (85) 93 09/13/17 16:00 95 09/13/17 16:00 98.1 125 18 114/71 (85) 92 09/13/17 15:00 100 18 107/65 (79) 92 09/13/17 14:00 95 09/13/17 14:00 95 98/59 (72) 96 09/13/17 13:00 107 92 09/13/17 12:00 108 09/13/17 12:00 97.7 108 114/70 (85) 85 09/13/17 11:00 119 113/71 (85) 90 I/O 09/13/17 09/13/17 09/13/17 09/14/17 09/14/17 09/14/17 07:00 15:00 23:00 07:00 15:00 23:00 Intake Total 480 ml 600 ml 1360 ml 750 ml 1000 ml Output Total 150 ml Balance 330 ml 600 ml 1360 ml 750 ml 1000 ml Intake Oral 480 ml 360 ml 650 ml IV Total 600 ml 1000 ml 100 ml 1000 ml Output Urine Total 100 ml Stool Total 50 ml # Voids 1 3 2 # Bowel Movements 1 4 11 Result Diagram: 09/12/17 0520 09/14/17 0550 Imaging Last Impressions Lower Extremity Ultrasound 09/12/17 0000 Signed Impressions: Service Date/Time: Tuesday, September 12, 2017 11:23 - CONCLUSION: 1. No sonographic evidence for lower extremity DVT. Brian De Souza MD Liver Ultrasound 09/12/17 0000 Signed Impressions: Service Date/Time: Tuesday, September 12, 2017 18:26 - CONCLUSION: Enlarged fatty liver. Bilateral pleural effusions. Javier Adam MD Chest X-Ray 09/11/17 1219 Signed Impressions: Service Date/Time: September 12:36 - CONCLUSION: 1. Old bilateral rib fractures. 2. No acute cardiomegaly disease. Brian De Souza MD Objective Remarks GENERAL: This is a frail elderly lady in no apparent distress. HEENT: Normocephalic, atraumatic. CARDIOVASCULAR: Tachycardic without murmurs, gallops, or rubs. RESPIRATORY: Fair air entry bilaterally. No wheezes, rales, or rhonchi. GASTROINTESTINAL: Abdomen soft, non-tender, nondistended. Normal active bowel sounds MUSCULOSKELETAL: Extremities without clubbing, cyanosis, or edema. NEURO: Alert and oriented. Moves all ext x4 PSYCH: Mood and affect appropriate. Medications and IVs Current Medications Medications (Trade) Dose Ordered Sig/Nikhil Route Start Time Stop Time Status Last Admin (NS Flush) 2 ml UNSCH PRN IV FLUSH 09/11/17 16:30 (NS Flush) 2 ml BID IV FLUSH 09/11/17 21:00 09/13/17 21:06 (Zofran Inj) 4 mg Q6H PRN IVP 09/11/17 16:30 (Narcan Inj) 0.4 mg UNSCH PRN IV PUSH 09/11/17 16:30 (Rupa-Colace) 1 tab BID PO 09/11/17 21:00 (Milk Of Magnesia Liq) 30 ml Q12H PRN PO 09/11/17 16:30 (Senokot) 17.2 mg Q12H PRN PO 09/11/17 16:30 (Dulcolax Supp) 10 mg DAILY PRN RECTAL 09/11/17 16:30 (Lactulose Liq) 30 ml DAILY PRN PO 09/11/17 16:30 Miscellaneous Information Patient in critical care unit? Ass... Q361D .XX 09/11/17 22:30 09/11/17 22:30 (Chlorhexidine 2% Cloth) 3 pack DAILY@04 TOPICAL 09/12/17 04:00 09/16/17 04:01 09/14/17 04:00 (Chlorhexidine 2% Cloth) 3 pack UNSCH PRN TOPICAL 09/11/17 22:30 09/16/17 22:20 Metronidazole 100 ml @ 100 mls/hr Q8H IV 09/14/17 00:30 09/14/17 08:36 Potassium Phosphate 30 mmol/ Sodium Chloride 260 ml @ 43.333 mls/ hr ONCE ONCE IV 09/14/17 12:00 09/14/17 17:59 Magnesium Sulfate/ Dextrose 100 ml @ 100 mls/hr Q1H IV 09/14/17 10:00 09/14/17 12:59 Potassium Chloride 30 meq/ Dextrose/Sodium Chloride 1,015 ml @ 100 mls/hr Q10H9M IV 09/14/17 11:00 09/15/17 17:26 A/P Assessment and Plan Severe C diff infection C. difficile positive. The patient continues to have severe diarrhea. - Continue IV Flagyl. - IV fluids. - Advance diet as tolerated. Severe electrolyte derangements Secondary to severe diarrhea. - Continue replacing potassium, magnesium and phosphorus aggressively with IV medications. - Follow BMP. - Telemetry. Elevated LFTs Likely s/t severe diarrhea. US with enlarged fatty liver. - follow LFTs. Hypoglycemia Improved. - Placed on IV fluid dextrose. - ADAT. Coagulopathy INR 6.6 on admission. Not on Coumadin. Has elevated LFTs, may be s/t liver failure. Albumin level is low. She has a history of alcohol abuse. - trend LFTs, coags. - hepatitis profile. - nutritional support. - check B12, folate levels, TSH, ammonia. PPx: Kolby Kearns DO Sep 14, 2017 10:31
[2017-09-14] MEDS ORDERED: POTASSIUM PHOSPHATE INJ 30 MMOL in SODIUM CHLOR 0.9% 250 ML INJ 250 ML IV ONE (12:00)
[2017-09-14] MEDS: MAGNESIUM SULFATE 1 GM PREMIX 100 ML IV SCH ×2 (12:04→15:49)
[2017-09-14] MEDS: POTASSIUM CHLORIDE INJ 30 MEQ in DEXT 5%-NACL 0.9% 1000 ML INJ 1,000 ML IV SCH ×2 (16:01→20:00)
[2017-09-14 20:20] LABS: ALBUMIN 1.9 GM/DL (3.4-5.0); AST (GOT) 169 U/L (15-37); BICARBONATE 28.9 MEQ/L (21.0-32.0); BLOOD UREA NITROGEN LESS THAN 1 MG/DL (7-18); CALCIUM 7.3 MG/DL (8.5-10.1); CHLORIDE 101 MEQ/L (98-107); CREATININE 0.29 MG/DL (0.50-1.00); GLOMERULAR FILTRATION RATE 231 ML/MIN (>89); GLUCOSE,RANDOM 132 MG/DL (74-106); SODIUM (NA) 136 MEQ/L (136-145)
[2017-09-14 20:34] LABS: ALKALINE PHOSPHATASE 322 U/L (45-117); ALT (GPT) 57 U/L (10-53); DIRECT BILIRUBIN ADULT 1.5 MG/DL (0.0-0.2); PHOSPHORUS LESS THAN 0.1 MG/DL (2.5-4.9); TOTAL BILIRUBIN ADULT 2.5 MG/DL (0.2-1.0); TOTAL PROTEIN 4.5 GM/DL (6.4-8.2)
[2017-09-14 20:38] LABS: CALCIUM-PROTEIN CORRECTED 8.8 MG/DL (8.5-10.1)
[2017-09-15] VITALS (10 sets, daily range): BP systolic 92–112; BP diastolic 51–55; PULSE 89–105; RESP 16–20; TEMP 97.5–98.8; O2SAT 92–96
[2017-09-15] MEDS: CHLORHEXIDINE GLUCONATE 2 % 1 PACK (2 CLOTHS)(taper/protocol) TOPICAL SCH (03:12)
[2017-09-15] MEDS: POTASSIUM CHLORIDE INJ 30 MEQ in DEXT 5%-NACL 0.9% 1000 ML INJ 1,000 ML IV SCH (06:02)
[2017-09-15 08:39] LABS: AUTOMATED NEUTROPHIL # 5.2 TH/MM3 (1.8-7.7); BASOPHIL % 0.2 % (0.0-2.0); EOSINOPHIL % 0.5 % (0.0-4.0); HEMOGLOBIN 9.3 GM/DL (11.6-15.3); LYMPH % 10.8 % (9.0-44.0); LYMPHOCYTE # 0.7 TH/MM3 (1.0-4.8); MEAN CELL VOLUME 108.5 FL (80.0-100.0); MEAN CORPUSCULAR HEMOGLOBIN 37.3 PG (27.0-34.0); MEAN CORPUSCULAR HGB CONC 34.3 % (32.0-36.0); MEAN PLATELET VOLUME 9.4 FL (7.0-11.0); MONO % 6.2 % (0.0-8.0); MONOCYTE # 0.4 TH/MM3 (0-0.9); NEUT % 82.3 % (16.0-70.0); PLATELET COUNT 81 TH/MM3 (150-450); RED BLOOD COUNT 2.49 MIL/MM3 (4.00-5.30); RED CELL DISTRIBUTION WIDTH 17.4 % (11.6-17.2); WHITE BLOOD COUNT 6.4 TH/MM3 (4.0-11.0)
[2017-09-15] MEDS: metroNIDAZOLE 500 MG INJ 100 ML IV SCH ×2 (08:47→16:41)
[2017-09-15] MEDS: SODIUM CHLORIDE 0.9% FLUSH 10 ML FLUSH IV FLUSH SCH ×2 (08:48→21:55)
[2017-09-15 09:11] LABS: ALBUMIN 1.7 GM/DL (3.4-5.0); ALKALINE PHOSPHATASE 286 U/L (45-117); ALT (GPT) 45 U/L (10-53); AST (GOT) 116 U/L (15-37); BICARBONATE 28.1 MEQ/L (21.0-32.0); BLOOD UREA NITROGEN 1 MG/DL (7-18); CALCIUM 6.9 MG/DL (8.5-10.1); CALCIUM-PROTEIN CORRECTED 8.6 MG/DL (8.5-10.1); CHLORIDE 100 MEQ/L (98-107); CREATININE LESS THAN 0.15 MG/DL (0.50-1.00); GLOMERULAR FILTRATION RATE 495 ML/MIN (>89); GLUCOSE,RANDOM 123 MG/DL (74-106); MAGNESIUM 1.6 MG/DL (1.5-2.5); PHOSPHORUS 0.7 MG/DL (2.5-4.9); SODIUM (NA) 135 MEQ/L (136-145); TOTAL BILIRUBIN ADULT 1.8 MG/DL (0.2-1.0); TOTAL PROTEIN 4.1 GM/DL (6.4-8.2)
[2017-09-15] MEDS: POTASSIUM CHLORIDE 20 MEQ CONTROLLED RELEASE TAB PO SCH ×3 (09:40→18:10)
[2017-09-15] MEDS: FOLIC ACID 1 MG TAB PO SCH (09:40)
[2017-09-15 09:56] LABS: BANDS 6 % (0-6); LYMPHOCYTES 8 % (9-44); METAMYELOCYTES 1 % (0-1); MONOCYTES 6 % (0-8); NEUTROPHIL # MANUAL DIFF 5.5 TH/MM3 (1.8-7.7); POLYS (SEG NEUTROPHILS) 79 % (16-70)
[2017-09-15 09:57] LABS: TARGET CELLS 1+ (NORMAL)
--- NOTE | 2017-09-15 10:28 | HHI.PR ---
Subjective Remarks The patient is feeling very weak. She has not been eating much. She says she is having constant diarrhea. She is willing to go to rehabilitation after discharge. Discussed with nursing at the bedside. Objective Vitals Vital Signs Date Time Temp Pulse Resp B/P (MAP) Pulse Ox O2 Delivery O2 Flow Rate FiO2 09/15/17 08:00 97.9 95 20 99/51 (67) 92 09/15/17 04:00 98.2 94 18 98/53 (68) 95 09/15/17 04:00 89 09/15/17 00:37 Room Air 09/15/17 00:00 96 09/15/17 00:00 98.2 90 20 100/55 (70) 96 09/14/17 20:00 97 09/14/17 20:00 Room Air 09/14/17 19:43 98.0 104 16 110/57 (74) 94 09/14/17 16:27 87 09/14/17 16:00 118 09/14/17 16:00 97.3 89 18 91/59 (70) 98 09/14/17 12:00 97.1 102 18 92/56 (68) 94 09/14/17 12:00 87 I/O 09/14/17 09/14/17 09/14/17 09/15/17 09/15/17 09/15/17 07:00 15:00 23:00 07:00 15:00 23:00 Intake Total 750 ml 1600 ml 880 ml Balance 750 ml 1600 ml 880 ml Intake Oral 650 ml 480 ml IV Total 100 ml 1600 ml 400 ml # Voids 2 16 4 # Bowel Movements 11 16 3 Result Diagram: 09/15/17 0809 09/15/17 0804 Imaging Last Impressions Lower Extremity Ultrasound 09/12/17 0000 Signed Impressions: Service Date/Time: Tuesday, September 12, 2017 11:23 - CONCLUSION: 1. No sonographic evidence for lower extremity DVT. Brian De Souza MD Liver Ultrasound 09/12/17 0000 Signed Impressions: Service Date/Time: Tuesday, September 12, 2017 18:26 - CONCLUSION: Enlarged fatty liver. Bilateral pleural effusions. Javier Adam MD Chest X-Ray 09/11/17 1219 Signed Impressions: Service Date/Time: September 12:36 - CONCLUSION: 1. Old bilateral rib fractures. 2. No acute cardiomegaly disease. Brian De Souza MD Objective Remarks GENERAL: This is a frail elderly lady in no apparent distress. HEENT: Normocephalic, atraumatic. CARDIOVASCULAR: Tachycardic without murmurs, gallops, or rubs. RESPIRATORY: Fair air entry bilaterally. No wheezes, rales, or rhonchi. GASTROINTESTINAL: Abdomen soft, non-tender, nondistended. Normal active bowel sounds MUSCULOSKELETAL: Extremities without clubbing, cyanosis, or edema. NEURO: Alert and oriented. Moves all ext x4. Generalized weakness. PSYCH: Mood and affect appropriate. Medications and IVs Current Medications Medications (Trade) Dose Ordered Sig/Nikhil Route Start Time Stop Time Status Last Admin (NS Flush) 2 ml UNSCH PRN IV FLUSH 09/11/17 16:30 (NS Flush) 2 ml BID IV FLUSH 09/11/17 21:00 09/15/17 08:48 (Zofran Inj) 4 mg Q6H PRN IVP 09/11/17 16:30 (Narcan Inj) 0.4 mg UNSCH PRN IV PUSH 09/11/17 16:30 Miscellaneous Information Patient in critical care unit? Ass... Q361D .XX 09/11/17 22:30 09/11/17 22:30 (Chlorhexidine 2% Cloth) 3 pack DAILY@04 TOPICAL 09/12/17 04:00 09/16/17 04:01 09/14/17 04:00 (Chlorhexidine 2% Cloth) 3 pack UNSCH PRN TOPICAL 09/11/17 22:30 09/16/17 22:20 Metronidazole 100 ml @ 100 mls/hr Q8H IV 09/14/17 00:30 09/15/17 08:47 Potassium Chloride 30 meq/ Dextrose/Sodium Chloride 1,015 ml @ 100 mls/hr Q10H9M IV 09/14/17 11:00 09/15/17 17:26 09/15/17 06:02 (Folate) 1 mg DAILY PO 09/15/17 10:00 09/15/17 09:40 (KCl) 40 meq Q4H PO 09/15/17 10:00 09/15/17 18:01 09/15/17 09:40 Potassium Phosphate 30 mmol/ Sodium Chloride 260 ml @ 43.333 mls/ hr ONCE ONCE IV 09/15/17 12:00 09/15/17 17:59 (VANCOMYCIN for oral use only) 125 mg QID PO 09/15/17 10:30 UNV A/P Assessment and Plan Severe C diff infection C. difficile positive. The patient continues to have severe diarrhea with electrolyte disturbances and malnutrition. - Continue IV Flagyl. Add PO vancomycin 09/15. - IV fluids. - Advance diet as tolerated. - dietary consult placed. Severe electrolyte derangements Secondary to severe diarrhea. Currently with severe hypokalemia and hypophosphatemia. - Continue replacing potassium and phosphorus aggressively with IV and PO medications. - Follow BMP. - Telemetry. Elevated LFTs Likely s/t severe diarrhea. US with enlarged fatty liver. - follow LFTs. Improving. Hypoglycemia Improved. - Placed on IV fluid dextrose. - ADAT. Coagulopathy INR 6.6 on admission. Not on Coumadin. Has elevated LFTs, may be s/t liver failure. Albumin level is low. She has a history of alcohol abuse. - trend LFTs, coags. Improving. - hepatitis profile. - nutritional support. Low folate level Likely secondary to nutritional deficiency. - Start folate supplement. PPx: Kolby Kearns DO Sep 15, 2017 10:28
[2017-09-15] MEDS ORDERED: POTASSIUM PHOSPHATE INJ 30 MMOL in SODIUM CHLOR 0.9% 250 ML INJ 250 ML IV ONE (12:00)
[2017-09-15] MEDS: VANCOMYCIN 500 MG VIAL (FOR ORAL USE ONLY) PO SCH ×3 (12:07→21:53)
--- NOTE | 2017-09-15 13:11 | RADRPT ---
EXAM DATE/TIME: 09/15/2017 11:57 [facility] COMPARISON: CHEST SINGLE AP, September 11, 2017, 12:36. INDICATIONS : Cough MEDICAL HISTORY : Chronic obstructive pulmonary disease. asthma, claustrophobia SURGICAL HISTORY : Tubal ligation. ENCOUNTER: Initial ACUITY: 4 - 6 days PAIN SCORE: 0/10 LOCATION: Bilateral chest FINDINGS: Patchy infiltrates are noted within the left mid lung field and right lung base consistent with proba ble pneumonia. Clinical correlation is recommended. Small right pleural effusion is noted. The heart is stable. CONCLUSION: Patchy infiltrates within the left mid lung field and right lung base consistent with probable pneumonia. Clinical correlation is recommended. Small right pleural effusion. Javier Adam MD on September 15, 2017 at 13:08 Board Certified Radiologist. This report was verified electronically.
[2017-09-15] MEDS ORDERED: VANCOMYCIN INJ 750 MG in SODIUM CHLOR 0.9% 250 ML INJ 250 ML IV SCH (14:15)
[2017-09-15] MEDS ORDERED: Vancomycin Consult Pharmacy 1 EA OTHER SCH (14:15)
[2017-09-15 15:44] LABS: HEPATITIS A AB IGM NEGATIVE (NEGATIVE); HEPATITIS B CORE AB IGM NEGATIVE (NEGATIVE); HEPATITIS B SURFACE ANTIGEN NEGATIVE (NEGATIVE); HEPATITIS C AB IgG NEGATIVE (NEGATIVE)
[2017-09-15] MEDS ORDERED: PIPERACIL-TAZO 4.5 GM PREMIX 100 ML IV SCH (16:00)
--- NOTE | 2017-09-15 16:23 | PD.ID.CON ---
History of Present Illness Service Infectious disease Consult Requested By Dr. Mirza Reason for Consult Evaluation and management of severe C. difficile presence of pneumonia Primary Care Physician No Primary Care Physician Diagnoses: History of Present Illness is a 66-year-old female with past medical history significant for smoking as well as significant alcohol intake in the past reportedly stopped 3 months ago. Patient presented to the emergency department complaining of worsening generalized malaise, diarrhea and weakness. Patient reports that her symptoms have been ongoing for several months at least 5 months that she can remember. She reports used to drink alcohol a lot and then she stopped about 3 months ago. She does report taking "goody powder" for arthritis. Patient reports that approximately 2-3 weeks prior to admission she went to a primary care physician because of worsening shortness of breath, cough with expectoration and she was prescribed trimethoprim sulfa which she took for about 10 days. After she completed the course she developed diarrhea, generalized weakness and malaise along with decreased appetite. She reports having continuous diarrhea almost all day long multiple episodes mostly watery with no blood or mucus. In the emergency department patient was found to have metabolic acidosis with anion gap also she had hypoglycemia with blood glucose of 37 for which paramedics gave her dextrose 10(D10) and blood sugars improved to 170. She reports she hasn't been eating and drinking well recently because of ongoing diarrhea and abdominal discomfort. She denied any fever or chills or chest pain. Patient self reports a history of lupus and possibly diabetes but this remains to be confirmed. Infectious disease is consulted for evaluation and management of severe C. difficile as well as pneumonia. Review of Systems ROS Limitations: Poor Historian Constitutional: COMPLAINS OF: Diaphoretic episodes, Fatigue, Fever, Weight gain , Weight loss, Chills, Dizziness, Change in appetite, Night Sweats Endocrine: DENIES: Abnorml menstrual pattern, Heat/cold intolerance, Polydipsia , Polyuria, Polyphagia Eyes: DENIES: Blurred vision, Diplopia, Eye inflammation, Eye pain, Vision loss , Photosensitivity, Double Vision Ears, nose, mouth, throat: DENIES: Tinnitus, Hearing loss, Vertigo, Nasal discharge, Oral lesions, Throat pain, Hoarseness, Ear Pain, Running Nose, Epistaxis, Sinus Pain, Toothache, Odynophagia Respiratory: COMPLAINS OF: Cough, Wheezing, Sputum production, Shortness of breath, DENIES: Apneas, Snoring, Hemoptysis Cardiovascular: DENIES: Chest pain, Palpitations, Syncope, Dyspnea on Exertion , PND, Lower Extremity Edema, Orthopnea, Claudication Gastrointestinal: COMPLAINS OF: Diarrhea, Nausea, DENIES: Abdominal pain, Black stools, Bloody stools, Constipation, Vomiting, Difficulty Swallowing, Anorexia Genitourinary: DENIES: Abnormal vaginal bleeding, Dysmenorrhea, Dyspareunia, Sexual dysfunction, Urinary frequency, Urinary incontinence, Urgency, Hematuria , Dysuria, Nocturia, Vaginal discharge Musculoskeletal: DENIES: Joint pain, Muscle aches, Stiffness, Joint Swelling, Back pain, Neck pain Integumentary: DENIES: Abnormal pigmentation, Pruritus, Rash, Nail changes, Breast masses, Breast skin changes, Nipple discharge Hematologic/lymphatic: DENIES: Bruising, Lymphadenopathy Immunologic/allergic: DENIES: Eczema, Urticaria Neurologic: DENIES: Abnormal gait, Headache, Localized weakness, Paresthesias, Seizures, Speech Problems, Tremor, Poor Balance Psychiatric: DENIES: Anxiety, Confusion, Mood changes, Depression, Hallucinations, Agitation, Suicidal Ideation, Homicidal Ideation, Delusions Except as stated in HPI: all other systems reviewed are Neg Past Family Social History Allergies: Coded Allergies: No Known Allergies (Verified Allergy, Unknown, 07/24/17) Past Medical History Questionable diabetes mellitus Lupus Arthritis unknown etiology Fatty liver based on imaging Past Surgical History None per patient Reported Medications Reported Meds & Active Scripts Active Roller Walker (Misc. Devices) 1 Mis Mis Ea .ROUTE NOW With seat if possible. Ventolin Hfa 18 GM Inh (Albuterol Sulfate) 90 Mcg/Act Aer 2 Puff INH Q4-6H PRN 30 Days Active Ordered Medications Current Medications Medications (Trade) Dose Ordered Sig/Nikhil Route Start Time Stop Time Status Last Admin (NS Flush) 2 ml UNSCH PRN IV FLUSH 09/11/17 16:30 (NS Flush) 2 ml BID IV FLUSH 09/11/17 21:00 09/15/17 08:48 (Zofran Inj) 4 mg Q6H PRN IVP 09/11/17 16:30 (Narcan Inj) 0.4 mg UNSCH PRN IV PUSH 09/11/17 16:30 Miscellaneous Information Patient in critical care unit? Ass... [id number] .XX 2/1/18 22:30 09/11/17 22:30 (Chlorhexidine 2% Cloth) 3 pack DAILY@04 TOPICAL 09/12/17 04:00 09/16/17 04:01 09/14/17 04:00 (Chlorhexidine 2% Cloth) 3 pack UNSCH PRN TOPICAL 09/11/17 22:30 09/16/17 22:20 Metronidazole 100 ml @ 100 mls/hr Q8H IV 09/14/17 00:30 09/15/17 16:41 Potassium Chloride 30 meq/ Dextrose/Sodium Chloride 1,015 ml @ 100 mls/hr Q10H9M IV 09/14/17 11:00 09/15/17 17:26 09/15/17 06:02 (Folate) 1 mg DAILY PO 09/15/17 10:00 09/15/17 09:40 (KCl) 40 meq Q4H PO 09/15/17 10:00 09/15/17 18:01 09/15/17 13:41 Potassium Phosphate 30 mmol/ Sodium Chloride 260 ml @ 43.333 mls/ hr ONCE ONCE IV 09/15/17 12:00 09/15/17 17:59 09/15/17 12:07 (VANCOMYCIN for oral use only) 125 mg QID PO 09/15/17 13:00 09/15/17 12:07 Pharmacy Profile Note 0 ml @ 0 mls/hr UNSCH OTHER 09/15/17 14:15 Vancomycin/Sodium Chloride 200 ml @ 200 mls/hr Q12H IV 09/15/17 17:00 Miscellaneous Information SPECIFIC LAB TO BE DRAWN:VANCOMYCIN TROUGH DATE TO... ONCE ONCE .XX 09/17/17 04:45 09/17/17 04:46 Cefepime HCl 2000 mg/Sodium Chloride 100 ml @ 200 mls/hr Q12H IV 09/15/17 18:00 (Zithromax) 500 mg DAILY PO 09/16/17 09:00 Family History Reviewed and noncontributory to current infectious disease problem. Social History Smoke 3 cigarettes a day, quit drinking alcohol 3 months ago, no substance abuse. Works in the [employer] department of a [employer] for long days prior to her illness. Physical Exam Vital Signs Vital Signs Date Time Temp Pulse Resp B/P (MAP) Pulse Ox O2 Delivery O2 Flow Rate FiO2 09/15/17 16:00 97.5 95 20 92/55 (67) 96 09/15/17 12:00 98.8 105 20 112/53 (72) 94 09/15/17 11:59 93 09/15/17 08:00 98 09/15/17 08:00 Room Air 09/15/17 08:00 97.9 95 20 99/51 (67) 92 09/15/17 04:00 98.2 94 18 98/53 (68) 95 09/15/17 04:00 89 09/15/17 00:37 Room Air 09/15/17 00:00 96 09/15/17 00:00 98.2 90 20 100/55 (70) 96 09/14/17 20:00 97 09/14/17 20:00 Room Air 09/14/17 19:43 98.0 104 16 110/57 (74) 94 09/14/17 16:27 87 Physical Exam GENERAL: Thin built cachectic appearing female patient, in no apparent distress. Looks older than stated age. SKIN: No rashes, ecchymoses or lesions. Cool and dry. HEAD: Atraumatic. Normocephalic. No temporal or scalp tenderness. EYES: Pupils equal round and reactive. Extraocular motions intact. No scleral icterus. No injection or drainage. ENT: Nose without bleeding, purulent drainage or septal hematoma. Throat without erythema, tonsillar hypertrophy or exudate. Uvula midline. Airway patent. NECK: Trachea midline. Supple, nontender, no meningeal signs. CARDIOVASCULAR: Heart sounds audible. RESPIRATORY: Clear to auscultation. Bilateral wheezing noted. Basilar crepitations. GASTROINTESTINAL: Abdomen soft, diffuse tenderness. No guarding no rigidity. MUSCULOSKELETAL: Extremities without clubbing, cyanosis, or edema. No joint tenderness, effusion, or edema noted. No calf tenderness. Negative Homans sign bilaterally. NEUROLOGICAL: Awake and alert. Nonfocal exam. Normal speech. Psych cooperative IV line sites with no evidence of infection. Laboratory Laboratory Tests Test 09/14/17 18:35 09/15/17 08:04 09/15/17 08:09 Blood Urea Nitrogen LESS THAN 1 1 Creatinine 0.29 LESS THAN 0.15 Random Glucose 132 123 Total Protein 4.5 4.1 Albumin 1.9 1.7 Calcium Level 7.3 6.9 Phosphorus Level LESS THAN 0.1 0.7 Alkaline Phosphatase 322 286 Aspartate Amino Transf (AST/SGOT) 169 116 Alanine Aminotransferase (ALT/SGPT) 57 45 Total Bilirubin 2.5 1.8 Direct Bilirubin 1.5 Sodium Level 136 135 Potassium Level 3.8 2.9 Chloride Level 101 100 Carbon Dioxide Level 28.9 28.1 Anion Gap 6 7 Estimat Glomerular Filtration Rate 231 495 Protein Corrected Calcium 8.8 8.6 Indirect Bilirubin 1.0 Vitamin B12 Level GREATER THAN 2000 Folate 2.0 Thyroid Stimulating Hormone 3rd Gen 2.410 Magnesium Level 1.6 White Blood Count 6.4 Red Blood Count 2.49 Hemoglobin 9.3 Hematocrit 27.0 Mean Corpuscular Volume 108.5 Mean Corpuscular Hemoglobin 37.3 Mean Corpuscular Hemoglobin Concent 34.3 Red Cell Distribution Width 17.4 Platelet Count 81 Mean Platelet Volume 9.4 Neutrophils (%) (Auto) 82.3 Lymphocytes (%) (Auto) 10.8 Monocytes (%) (Auto) 6.2 Eosinophils (%) (Auto) 0.5 Basophils (%) (Auto) 0.2 Neutrophils # (Auto) 5.2 Lymphocytes # (Auto) 0.7 Monocytes # (Auto) 0.4 Eosinophils # (Auto) 0.0 Basophils # (Auto) 0.0 CBC Comment AUTO DIFF Differential Total Cells Counted 100 Neutrophils % (Manual) 79 Band Neutrophils % 6 Lymphocytes % 8 Monocytes % 6 Neutrophils # (Manual) 5.5 Metamyelocytes 1 Differential Comment FINAL DIFF MANUAL Platelet Estimate LOW Platelet Morphology Comment NORMAL Target Cells 1+ Red Cell Morphology Comment Date/Time Source Procedure Growth Status 09/11/17 13:30 Blood Peripheral Aerobic Blood Culture - Preliminary NO GROWTH IN 4 DAYS Resulted 09/11/17 13:30 Blood Peripheral Anaerobic Blood Culture - Preliminary NO GROWTH IN 4 DAYS Resulted Result Diagram: 09/15/17 0809 09/15/17 0804 Imaging Last Impressions Chest X-Ray 09/15/17 0000 Signed Impressions: Service Date/Time: Friday, September 15, 2017 11:57 - CONCLUSION: Patchy infiltrates within the left mid lung field and right lung base consistent with probable pneumonia. Clinical correlation is recommended. Small right pleural effusion. aJvier Adam MD Lower Extremity Ultrasound 09/12/17 0000 Signed Impressions: Service Date/Time: Tuesday, September 12, 2017 11:23 - CONCLUSION: 1. No sonographic evidence for lower extremity DVT. Brian De Souza MD Liver Ultrasound 09/12/17 0000 Signed Impressions: Service Date/Time: Tuesday, September 12, 2017 18:26 - CONCLUSION: Enlarged fatty liver. Bilateral pleural effusions. Javier Adam MD Assessment and Plan Assessment and Plan Severe C. difficile present on admission Hypotension likely prerenal due to ongoing diarrhea and decreased oral intake due to nausea. Pneumonia present on admission likely community-acquired pneumonia no prior hospitalization in last 5 years. History of being treated for possible pneumonia with Bactrim prior to admission. Possible acute COPD exacerbation(given history of smoking) Hypoalbuminemia, anemia, weight loss: Rule out chronic infections like HIV. Hepatitis panel negative. thrombocytopenia Abnormal Liver function tests: sepsis, fatty liver Recs: continue Flagyl IV for cdiff infection DC Zosyn IV (double anaerobic coverage) Change to Cefepime IV Continue oral vanco Patient has only received 1 dose of vanco so far will reassess in am if she would be a candidate for vanco enema. At present the number of bowel movements she has unsure if she will even retain enema. HIV screen Hepatitis panel negative. Follow cultures follow clinically. Treat with shortest course for PNA due to concomitant Cdiff. Jessie Harmon MD Sep 15, 2017 16:23
[2017-09-15] MEDS ORDERED: VANCOMYCIN 1 GM/200 ML PREMIX IV SCH (17:00)
[2017-09-15] MEDS: CEFEPIME INJ 2,000 MG in SODIUM CHLORIDE 0.9% INJ 100 ML IV SCH (18:58)
--- NOTE | 2017-09-15 21:00 | HHI.PR ---
Subjective Remarks NOT SEEN Objective Vitals Vital Signs Date Time Temp Pulse Resp B/P (MAP) Pulse Ox O2 Delivery O2 Flow Rate FiO2 09/15/17 16:04 92 09/15/17 16:00 97.5 95 20 92/55 (67) 96 09/15/17 12:00 98.8 105 20 112/53 (72) 94 09/15/17 11:59 93 09/15/17 08:00 98 09/15/17 08:00 Room Air 09/15/17 08:00 97.9 95 20 99/51 (67) 92 09/15/17 04:00 98.2 94 18 98/53 (68) 95 09/15/17 04:00 89 09/15/17 00:37 Room Air 09/15/17 00:00 96 09/15/17 00:00 98.2 90 20 100/55 (70) 96 I/O 09/14/17 09/14/17 09/14/17 09/15/17 09/15/17 09/15/17 07:00 15:00 23:00 07:00 15:00 23:00 Intake Total 750 ml 1600 ml 880 ml 100 ml 360 ml Balance 750 ml 1600 ml 880 ml 100 ml 360 ml Intake Oral 650 ml 480 ml IV Total 100 ml 1600 ml 400 ml 100 ml 360 ml # Voids 2 16 4 3 6 # Bowel Movements 11 16 3 3 3 Result Diagram: 09/15/17 0809 09/15/17 0804 Imaging Last Impressions Chest X-Ray 09/15/17 0000 Signed Impressions: Service Date/Time: Friday, September 15, 2017 11:57 - CONCLUSION: Patchy infiltrates within the left mid lung field and right lung base consistent with probable pneumonia. Clinical correlation is recommended. Small right pleural effusion. Javier Adam MD Lower Extremity Ultrasound 09/12/17 0000 Signed Impressions: Service Date/Time: Tuesday, September 12, 2017 11:23 - CONCLUSION: 1. No sonographic evidence for lower extremity DVT. Brian De Souza MD Liver Ultrasound 09/12/17 0000 Signed Impressions: Service Date/Time: Tuesday, September 12, 2017 18:26 - CONCLUSION: Enlarged fatty liver. Bilateral pleural effusions. Javier Adam MD Objective Remarks GENERAL: This is a frail elderly lady in no apparent distress. HEENT: Normocephalic, atraumatic. CARDIOVASCULAR: Tachycardic without murmurs, gallops, or rubs. RESPIRATORY: Fair air entry bilaterally. No wheezes, rales, or rhonchi. GASTROINTESTINAL: Abdomen soft, non-tender, nondistended. Normal active bowel sounds MUSCULOSKELETAL: Extremities without clubbing, cyanosis, or edema. NEURO: Alert and oriented. Moves all ext x4. Generalized weakness. PSYCH: Mood and affect appropriate. Procedures none A/P Problem List: (1) C. difficile diarrhea ICD Code: A04.72 - Enterocolitis due to Clostridium difficile, not specified as recurrent (2) Pneumonia ICD Code: J18.9 - Pneumonia, unspecified organism Assessment and Plan Cough The patient has been endorsing a productive cough. - CXR consistent with PNA. ID recommended Cefepime Severe C diff infection C. difficile positive. The patient continues to have severe diarrhea with electrolyte disturbances and malnutrition. - Continue IV Flagyl and PO vancomycin 2/5. - IV fluids. - Advance diet as tolerated. - dietary consult placed. Severe electrolyte derangements Secondary to severe diarrhea. Currently with severe hypokalemia and hypophosphatemia. - Continue replacing potassium and phosphorus aggressively with IV and PO medications. - Follow BMP. - Telemetry. Elevated LFTs 2/2 sepsis and fatty liver. Hep screen negative. HIV pending Likely s/t severe diarrhea. US with enlarged fatty liver. - follow LFTs. Improving. Hypoglycemia Improved. - Placed on IV fluid dextrose. - ADAT. Coagulopathy INR 6.6 on admission. Not on Coumadin. Has elevated LFTs, may be s/t liver disease. Albumin level is low. She has a history of alcohol abuse. - trend LFTs, coags. Improving. - nutritional support. Low folate level Likely secondary to nutritional deficiency. - Start folate supplement. PPx: SCDs. Hold pharmacological proph 2/2 thrombocytopenia Ayaz Lopez MD Sep 15, 2017 21:00
[2017-09-16] VITALS (9 sets, daily range): BP systolic 92–111; BP diastolic 50–66; PULSE 82–106; RESP 16–20; TEMP 97.2–98.3; O2SAT 92–100
[2017-09-16] MEDS: metroNIDAZOLE 500 MG INJ 100 ML IV SCH ×3 (01:56→15:39)
[2017-09-16] MEDS: CHLORHEXIDINE GLUCONATE 2 % 1 PACK (2 CLOTHS)(taper/protocol) TOPICAL SCH (04:00)
[2017-09-16] MEDS: RESP: ALBUTEROL 2.5 MG/3 ML NEB (PRN) NEB (04:12)
[2017-09-16] MEDS: CEFEPIME INJ 2,000 MG in SODIUM CHLORIDE 0.9% INJ 100 ML IV SCH ×2 (05:31→17:39)
[2017-09-16 07:12] LABS: HEMATOCRIT 25.9 % (35.0-46.0); HEMOGLOBIN 8.8 GM/DL (11.6-15.3); MEAN CELL VOLUME 110.4 FL (80.0-100.0); MEAN CORPUSCULAR HEMOGLOBIN 37.7 PG (27.0-34.0); MEAN CORPUSCULAR HGB CONC 34.1 % (32.0-36.0); MEAN PLATELET VOLUME 8.6 FL (7.0-11.0); PLATELET COUNT 70 TH/MM3 (150-450); RED BLOOD COUNT 2.35 MIL/MM3 (4.00-5.30); RED CELL DISTRIBUTION WIDTH 17.9 % (11.6-17.2); WHITE BLOOD COUNT 7.6 TH/MM3 (4.0-11.0)
[2017-09-16 07:31] LABS: INTERNATIONAL NORMALIZED RATIO 1.3 RATIO; PROTHROMBIN TIME - PATIENT 12.9 SEC (9.8-11.6)
[2017-09-16 07:33] LABS: ALBUMIN 1.5 GM/DL (3.4-5.0); ALKALINE PHOSPHATASE 264 U/L (45-117); ALT (GPT) 43 U/L (10-53); AST (GOT) 82 U/L (15-37); BICARBONATE 26.1 MEQ/L (21.0-32.0); BLOOD UREA NITROGEN 1 MG/DL (7-18); CHLORIDE 103 MEQ/L (98-107); CREATININE LESS THAN 0.15 MG/DL (0.50-1.00); DIRECT BILIRUBIN ADULT 0.8 MG/DL (0.0-0.2); GLOMERULAR FILTRATION RATE 495 ML/MIN (>89); GLUCOSE,RANDOM 105 MG/DL (74-106); INDIRECT BILIRUBIN 0.9 MG/DL (0.0-0.8); MAGNESIUM 1.4 MG/DL (1.5-2.5); PHOSPHORUS 1.4 MG/DL (2.5-4.9); SODIUM (NA) 134 MEQ/L (136-145); TOTAL BILIRUBIN ADULT 1.7 MG/DL (0.2-1.0); TOTAL PROTEIN 4.1 GM/DL (6.4-8.2)
[2017-09-16 07:42] LABS: CALCIUM-PROTEIN CORRECTED 7.4 MG/DL (8.5-10.1)
[2017-09-16] MEDS: SODIUM CHLORIDE 0.9% FLUSH 10 ML FLUSH IV FLUSH SCH ×2 (07:52→22:05)
[2017-09-16] MEDS: VANCOMYCIN 500 MG VIAL (FOR ORAL USE ONLY) PO SCH ×4 (07:52→21:59)
[2017-09-16] MEDS: FOLIC ACID 1 MG TAB PO SCH (07:53)
[2017-09-16] MEDS: AZITHROMYCIN 250 MG TAB PO SCH (07:53)
[2017-09-16] MEDS: CALCIUM CARBONATE 1.25 GM (CA 500 MG) TAB PO SCH ×2 (11:56→21:57)
--- NOTE | 2017-09-16 14:25 | HHI.IDPN ---
Subjective Subjective Remarks is a 66-year-old female with past medical history significant for smoking as well as significant alcohol intake in the past reportedly stopped 3 months ago. Patient presented to the emergency department complaining of worsening generalized malaise, diarrhea and weakness. Patient reports that her symptoms have been ongoing for several months at least 5 months that she can remember. She reports used to drink alcohol a lot and then she stopped about 3 months ago. She does report taking "goody powder" for arthritis. Patient reports that approximately 2-3 weeks prior to admission she went to a primary care physician because of worsening shortness of breath, cough with expectoration and she was prescribed trimethoprim sulfa which she took for about 10 days. After she completed the course she developed diarrhea, generalized weakness and malaise along with decreased appetite. She reports having continuous diarrhea almost all day long multiple episodes mostly watery with no blood or mucus. In the emergency department patient was found to have metabolic acidosis with anion gap also she had hypoglycemia with blood glucose of 37 for which paramedics gave her dextrose 10(D10) and blood sugars improved to 170. She reports she hasn't been eating and drinking well recently because of ongoing diarrhea and abdominal discomfort. She denied any fever or chills or chest pain. Patient self reports a history of lupus and possibly diabetes but this remains to be confirmed. Infectious disease is consulted for evaluation and management of severe C. difficile as well as pneumonia. Overnight events reviewed No fevers No rash Diarrhea 14 BMs yday and 6 BMs so far by the time of my visit. WBC ok Cough but not much expectoration. Abdominal tenderness/tenesmus. no N/Vomiting. Drinking ensure. Antibiotics Cefepime IV Flagyl IV Vanco oral. Lines Line sites with no e.o infection Past Medical History reviewed Allergies: Coded Allergies: No Known Allergies (Verified Allergy, Unknown, 07/24/17) Objective . Vital Signs Date Time Temp Pulse Resp B/P (MAP) Pulse Ox O2 Delivery O2 Flow Rate FiO2 09/16/17 12:46 98 Nasal Cannula 3.00 09/16/17 12:00 106 09/16/17 08:00 105 09/16/17 08:00 97.5 104 20 111/66 (81) 99 09/16/17 08:00 Room Air 09/16/17 04:00 93 09/16/17 04:00 97.6 96 16 92/51 (65) 96 09/16/17 02:57 92 09/16/17 00:00 99 09/15/17 23:15 97.9 92 16 100/54 (69) 96 09/15/17 20:10 97.7 91 16 99/51 (67) 94 09/15/17 20:00 Room Air 09/15/17 20:00 95 09/15/17 16:04 92 09/15/17 16:00 97.5 95 20 92/55 (67) 96 09/16/17 09/16/17 09/17/17 15:00 23:00 07:00 # Voids 1 # Bowel Movements 1 . Laboratory Tests Test 09/15/17 08:09 09/16/17 06:55 White Blood Count 6.4 TH/MM3 7.6 TH/MM3 Red Blood Count 2.49 MIL/MM3 2.35 MIL/MM3 Hemoglobin 9.3 GM/DL 8.8 GM/DL Hematocrit 27.0 % 25.9 % Mean Corpuscular Volume 108.5 FL 110.4 FL Mean Corpuscular Hemoglobin 37.3 PG 37.7 PG Mean Corpuscular Hemoglobin Concent 34.3 % 34.1 % Red Cell Distribution Width 17.4 % 17.9 % Platelet Count 81 TH/MM3 70 TH/MM3 Mean Platelet Volume 9.4 FL 8.6 FL Neutrophils (%) (Auto) 82.3 % Lymphocytes (%) (Auto) 10.8 % Monocytes (%) (Auto) 6.2 % Eosinophils (%) (Auto) 0.5 % Basophils (%) (Auto) 0.2 % Neutrophils # (Auto) 5.2 TH/MM3 Lymphocytes # (Auto) 0.7 TH/MM3 Monocytes # (Auto) 0.4 TH/MM3 Eosinophils # (Auto) 0.0 TH/MM3 Basophils # (Auto) 0.0 TH/MM3 CBC Comment AUTO DIFF Differential Total Cells Counted 100 Neutrophils % (Manual) 79 % Band Neutrophils % 6 % Lymphocytes % 8 % Monocytes % 6 % Neutrophils # (Manual) 5.5 TH/MM3 Metamyelocytes 1 % Differential Comment FINAL DIFF MANUAL Platelet Estimate LOW Platelet Morphology Comment NORMAL Target Cells 1+ Red Cell Morphology Comment Laboratory Tests Test 09/14/17 16:11 09/14/17 18:35 09/15/17 08:04 09/16/17 06:55 Ammonia LESS THAN 10 MCMOL/L Blood Urea Nitrogen LESS THAN 1 MG/DL 1 MG/DL 1 MG/DL Creatinine 0.29 MG/DL LESS THAN 0.15 MG/DL LESS THAN 0.15 MG/DL Random Glucose 132 MG/DL 123 MG/DL 105 MG/DL Total Protein 4.5 GM/DL 4.1 GM/DL 4.1 GM/DL Albumin 1.9 GM/DL 1.7 GM/DL 1.5 GM/DL Calcium Level 7.3 MG/DL 6.9 MG/DL 6.0 MG/DL Phosphorus Level LESS THAN 0.1 MG/DL 0.7 MG/DL 1.4 MG/DL Alkaline Phosphatase 322 U/L 286 U/L 264 U/L Aspartate Amino Transf (AST/SGOT) 169 U/L 116 U/L 82 U/L Alanine Aminotransferase (ALT/SGPT) 57 U/L 45 U/L 43 U/L Total Bilirubin 2.5 MG/DL 1.8 MG/DL 1.7 MG/DL Direct Bilirubin 1.5 MG/DL 0.8 MG/DL Sodium Level 136 MEQ/L 135 MEQ/L 134 MEQ/L Potassium Level 3.8 MEQ/L 2.9 MEQ/L 4.0 MEQ/L Chloride Level 101 MEQ/L 100 MEQ/L 103 MEQ/L Carbon Dioxide Level 28.9 MEQ/L 28.1 MEQ/L 26.1 MEQ/L Anion Gap 6 MEQ/L 7 MEQ/L 5 MEQ/L Estimat Glomerular Filtration Rate 231 ML/MIN 495 ML/MIN 495 ML/MIN Protein Corrected Calcium 8.8 MG/DL 8.6 MG/DL 7.4 MG/DL Indirect Bilirubin 1.0 MG/DL 0.9 MG/DL Vitamin B12 Level GREATER THAN 2000 PG/ML Folate 2.0 NG/ML Thyroid Stimulating Hormone 3rd Gen 2.410 uIU/ML Magnesium Level 1.6 MG/DL 1.4 MG/DL Procalcitonin 0.11 ng/mL Microbiology Date/Time Source Procedure Growth Status 09/15/17 17:15 Nasal Aspirate Influenza Types A,B Antigen (CHARMAINE) - Final NEGATIVE FOR FLU A AND B ANTIGEN.... Complete 09/15/17 17:15 Urine Random Urine Legionella Antigen - Final PRESUMPTIVE NEGATIVE FOR LEGIONELLA P... Complete 09/15/17 17:15 Urine Random Urine Streptococcus pneumoniae Antigen (M - Final PRESUMPTIVE NEGATIVE FOR STREPTOCOCCU... Complete Imaging Last Impressions Chest X-Ray 09/15/17 0000 Signed Impressions: Service Date/Time: Friday, September 15, 2017 11:57 - CONCLUSION: Patchy infiltrates within the left mid lung field and right lung base consistent with probable pneumonia. Clinical correlation is recommended. Small right pleural effusion. Javier Adam MD Lower Extremity Ultrasound 09/12/17 0000 Signed Impressions: Service Date/Time: Tuesday, September 12, 2017 11:23 - CONCLUSION: 1. No sonographic evidence for lower extremity DVT. Brian De Souza MD Liver Ultrasound 09/12/17 0000 Signed Impressions: Service Date/Time: Tuesday, September 12, 2017 18:26 - CONCLUSION: Enlarged fatty liver. Bilateral pleural effusions. Javier Adam MD Physical Exam GENERAL: Thin built cachectic appearing female patient, in no apparent distress. Looks older than stated age. SKIN: No rashes, ecchymoses or lesions. Cool and dry. HEAD: Atraumatic. Normocephalic. No temporal or scalp tenderness. EYES: Pupils equal round and reactive. Extraocular motions intact. No scleral icterus. No injection or drainage. ENT: Nose without bleeding, purulent drainage or septal hematoma. Throat without erythema, tonsillar hypertrophy or exudate. Uvula midline. Airway patent. NECK: Trachea midline. Supple, nontender, no meningeal signs. CARDIOVASCULAR: Heart sounds audible. RESPIRATORY: Clear to auscultation. Bilateral wheezing noted. Basilar crepitations. GASTROINTESTINAL: Abdomen soft, diffuse tenderness. No guarding no rigidity. MUSCULOSKELETAL: Extremities without clubbing, cyanosis, or edema. No joint tenderness, effusion, or edema noted. No calf tenderness. Negative Homans sign bilaterally. NEUROLOGICAL: Awake and alert. Nonfocal exam. Normal speech. Psych cooperative IV line sites with no evidence of infection. Assessment & Plan Remarks Severe C. difficile present on admission Hypotension likely prerenal due to ongoing diarrhea and decreased oral intake due to nausea. Pneumonia present on admission likely community-acquired pneumonia no prior hospitalization in last 5 years. History of being treated for possible pneumonia with Bactrim prior to admission. Possible acute COPD exacerbation(given history of smoking) Hypoalbuminemia, anemia, weight loss: Rule out chronic infections like HIV. Hepatitis panel negative. thrombocytopenia Abnormal Liver function tests: sepsis, fatty liver Recs: Continue Flagyl IV for cdiff infection Continue Cefepime IV Continue Oral vanco Start oral Asacol (Mesalamine): Continues to have large volume diarrhea. Concern for post infectious inflammatory/secretory diarrhea. Start Dificid (BNAP negative strain and on concomitant antibiotics) Not candidate for Vanco enema as may not be able to retain due to large volume frequent diarrhea. HIV negative. Hepatitis panel negative. Follow cultures follow clinically. Treat with shortest course for PNA due to concomitant Cdiff. Jessie Harmon MD Sep 16, 2017 14:25
--- NOTE | 2017-09-16 14:28 | HHI.PR ---
Subjective Remarks Follow-up C. difficile and pneumonia. Decreased by mouth and continues to have diarrhea. Denies abdominal pain. Has cough and shortness of breath on oxygen discussed with RN Objective Vitals Vital Signs Date Time Temp Pulse Resp B/P (MAP) Pulse Ox O2 Delivery O2 Flow Rate FiO2 09/16/17 12:46 98 Nasal Cannula 3.00 09/16/17 12:00 106 09/16/17 08:00 105 09/16/17 08:00 97.5 104 20 111/66 (81) 99 09/16/17 08:00 Room Air 09/16/17 04:00 93 09/16/17 04:00 97.6 96 16 92/51 (65) 96 09/16/17 02:57 92 09/16/17 00:00 99 09/15/17 23:15 97.9 92 16 100/54 (69) 96 09/15/17 20:10 97.7 91 16 99/51 (67) 94 09/15/17 20:00 Room Air 09/15/17 20:00 95 09/15/17 16:04 92 09/15/17 16:00 97.5 95 20 92/55 (67) 96 I/O 09/15/17 09/15/17 09/15/17 09/16/17 09/16/17 09/16/17 07:00 15:00 23:00 07:00 15:00 23:00 Intake Total 100 ml 460 ml 340 ml Output Total 500 ml Balance 100 ml 460 ml -160 ml Intake Oral 240 ml IV Total 100 ml 460 ml 100 ml Output Urine Total 500 ml # Voids 4 3 6 1 # Bowel Movements 3 3 3 8 1 Result Diagram: 09/16/17 0655 09/16/17 0655 Imaging Last Impressions Chest X-Ray 09/15/17 0000 Signed Impressions: Service Date/Time: Friday, September 15, 2017 11:57 - CONCLUSION: Patchy infiltrates within the left mid lung field and right lung base consistent with probable pneumonia. Clinical correlation is recommended. Small right pleural effusion. Javier Adam MD Lower Extremity Ultrasound 09/12/17 0000 Signed Impressions: Service Date/Time: Tuesday, September 12, 2017 11:23 - CONCLUSION: 1. No sonographic evidence for lower extremity DVT. Brian De Souza MD Liver Ultrasound 09/12/17 0000 Signed Impressions: Service Date/Time: Tuesday, September 12, 2017 18:26 - CONCLUSION: Enlarged fatty liver. Bilateral pleural effusions. Javier Adam MD Objective Remarks GENERAL: This is a frail elderly lady in no apparent distress. Looks dry HEENT: Normocephalic, atraumatic. CARDIOVASCULAR: Tachycardic without murmurs, gallops, or rubs. RESPIRATORY: Fair air entry bilaterally. No wheezes, rales, or rhonchi. GASTROINTESTINAL: Abdomen soft, non-tender, nondistended. Normal active bowel sounds MUSCULOSKELETAL: Extremities without clubbing, cyanosis, or edema. NEURO: Alert and oriented. Moves all ext x4. Generalized weakness. PSYCH: Mood and affect appropriate. Procedures none A/P Problem List: (1) C. difficile diarrhea ICD Code: A04.72 - Enterocolitis due to Clostridium difficile, not specified as recurrent (2) Pneumonia ICD Code: J18.9 - Pneumonia, unspecified organism Assessment and Plan Community acquired pneumonia. Stable. Continue cefepime and Zithromax Severe C diff infection. Continues to have loose stools. Continue IV Flagyl and by mouth vancomycin. ID recommended deficid and Asacol and monitor response. Dehydration with electrolyte derangements. Restart IV hydration and replace and after lysis aggressively. Discussed with dietitian, start Megace Elevated LFTs 2/2 sepsis and fatty liver. Hep screen negative. HIV pending. US with enlarged fatty liver. - follow LFTs. Improving. Hypoglycemia Improved. - Placed on IV fluid dextrose. Coagulopathy INR 6.6 on admission. Not on Coumadin. Has elevated LFTs, may be s/t liver disease. Albumin level is low. She has a history of alcohol abuse. - trend LFTs, coags. Improving. - nutritional support. Low folate level Likely secondary to nutritional deficiency. -Continue folate supplement. PPx: SCDs. Hold pharmacological proph 2/2 thrombocytopenia Ayaz Lopez MD Sep 16, 2017 14:28
[2017-09-16] MEDS: MEGESTROL ACETATE 40 MG TAB PO SCH ×2 (15:35→21:58)
[2017-09-16] MEDS: MESALAMINE HD 800 MG DELAYED RELEASE TAB PO SCH ×2 (15:35→22:00)
[2017-09-16] MEDS: FIDAXOMICIN 200 MG TAB PO SCH ×2 (15:36→21:58)
[2017-09-16] MEDS ORDERED: POTASSIUM CHLORIDE INJ 10 MEQ in DEXT 5%-NACL 0.9% 1000 ML INJ 1,000 ML IV SCH (16:00)
[2017-09-17] VITALS (9 sets, daily range): BP systolic 89–99; BP diastolic 48–64; PULSE 75–114; RESP 17–18; TEMP 97.7–99.1; O2SAT 95–100
[2017-09-17] MEDS: RESP: ALBUTEROL 2.5 MG/3 ML NEB (PRN) NEB ×2 (01:18→05:56)
[2017-09-17] MEDS: metroNIDAZOLE 500 MG INJ 100 ML IV SCH ×3 (01:41→16:30)
[2017-09-17] MEDS ORDERED: PHARMACY ORDERED LAB ONE (04:45)
[2017-09-17] MEDS: MESALAMINE HD 800 MG DELAYED RELEASE TAB PO SCH ×3 (05:35→21:42)
[2017-09-17] MEDS: CEFEPIME INJ 2,000 MG in SODIUM CHLORIDE 0.9% INJ 100 ML IV SCH (05:41)
[2017-09-17 06:53] LABS: AUTOMATED NEUTROPHIL # 3.9 TH/MM3 (1.8-7.7); BASOPHIL % 0.3 % (0.0-2.0); EOSINOPHIL % 0.8 % (0.0-4.0); HEMATOCRIT 24.1 % (35.0-46.0); HEMOGLOBIN 8.2 GM/DL (11.6-15.3); LYMPH % 21.8 % (9.0-44.0); LYMPHOCYTE # 1.3 TH/MM3 (1.0-4.8); MEAN CELL VOLUME 109.1 FL (80.0-100.0); MEAN CORPUSCULAR HEMOGLOBIN 37.2 PG (27.0-34.0); MEAN CORPUSCULAR HGB CONC 34.1 % (32.0-36.0); MEAN PLATELET VOLUME 9.2 FL (7.0-11.0); MONO % 14.5 % (0.0-8.0); MONOCYTE # 0.9 TH/MM3 (0-0.9); NEUT % 62.6 % (16.0-70.0); PLATELET COUNT 93 TH/MM3 (150-450); RED BLOOD COUNT 2.21 MIL/MM3 (4.00-5.30); RED CELL DISTRIBUTION WIDTH 18.1 % (11.6-17.2); WHITE BLOOD COUNT 6.2 TH/MM3 (4.0-11.0)
[2017-09-17 07:28] LABS: BICARBONATE 28.4 MEQ/L (21.0-32.0); CREATININE 0.17 MG/DL (0.50-1.00); MAGNESIUM 1.3 MG/DL (1.5-2.5)
[2017-09-17 08:01] LABS: CALCIUM-PROTEIN CORRECTED 8.6 MG/DL (8.5-10.1); TOTAL PROTEIN 4.2 GM/DL (6.4-8.2)
[2017-09-17] MEDS: VANCOMYCIN 500 MG VIAL (FOR ORAL USE ONLY) PO SCH ×3 (09:05→21:39)
[2017-09-17] MEDS: FOLIC ACID 1 MG TAB PO SCH (09:05)
[2017-09-17] MEDS: FIDAXOMICIN 200 MG TAB PO SCH ×2 (09:05→21:00)
[2017-09-17] MEDS: AZITHROMYCIN 250 MG TAB PO SCH (09:05)
[2017-09-17] MEDS: MEGESTROL ACETATE 40 MG TAB PO SCH ×2 (09:05→21:00)
[2017-09-17] MEDS: CALCIUM CARBONATE 1.25 GM (CA 500 MG) TAB PO SCH ×2 (09:05→21:00)
[2017-09-17] MEDS ORDERED: POTASSIUM CHLORIDE 20 MEQ CONTROLLED RELEASE TAB PO ONE (09:15)
[2017-09-17] MEDS ORDERED: POTASSIUM CHLOR 20 MEQ PREMIX 100 ML IV ONE (09:15)
[2017-09-17 09:22] LABS: BANDS 1 % (0-6); CORRECTED NUCLEATED RBC 4 /100 WBC (0-0); LYMPHOCYTES 11 % (9-44); MONOCYTES 9 % (0-8); MYELOCYTES 4 % (0-0); NUCLEATED RED BLOOD CELL 4 (0-0); POLYS (SEG NEUTROPHILS) 75 % (16-70); TARGET CELLS 1+ (NORMAL)
[2017-09-17 09:23] LABS: DOHLE BODIES PRESENT (NONE SEEN)
[2017-09-17] MEDS: MAGNESIUM SULFATE 1 GM PREMIX 100 ML IV SCH ×2 (10:29→11:45)
[2017-09-17] MEDS: SODIUM CHLORIDE 0.9% FLUSH 10 ML FLUSH IV FLUSH SCH ×2 (10:35→21:41)
--- NOTE | 2017-09-17 10:39 | HHI.PR ---
Subjective Remarks Follow-up C. difficile and pneumonia. Improving diarrhea less frequent denies nausea and abdominal pain. Shortness of breath about the same. Discussed with RN and infectious disease. Objective Vitals Vital Signs Date Time Temp Pulse Resp B/P (MAP) Pulse Ox O2 Delivery O2 Flow Rate FiO2 09/17/17 08:00 97.9 114 18 97/64 (75) 96 09/17/17 04:00 75 09/17/17 04:00 97.7 78 18 98/58 (71) 99 09/17/17 01:19 98 Nasal Cannula 3.00 09/17/17 00:00 98.0 82 18 96/55 (69) 99 09/17/17 00:00 82 09/16/17 20:00 Nasal Cannula 2.00 09/16/17 20:00 91 09/16/17 20:00 98.3 84 20 100/61 (74) 100 09/16/17 17:35 98 Nasal Cannula 3.00 09/16/17 16:00 97.2 83 20 97/50 (66) 98 09/16/17 16:00 82 09/16/17 12:46 98 Nasal Cannula 3.00 09/16/17 12:00 106 I/O 09/16/17 09/16/17 09/16/17 09/17/17 09/17/17 09/17/17 07:00 15:00 23:00 07:00 15:00 23:00 Intake Total 340 ml 100 ml 100 ml 1040 ml Output Total 500 ml 400 ml Balance -160 ml 100 ml 100 ml 640 ml Intake Oral 240 ml 240 ml IV Total 100 ml 100 ml 100 ml 800 ml Output Urine Total 500 ml 400 ml # Voids 6 # Bowel Movements 8 7 2 2 Result Diagram: 09/17/17 0615 09/17/17 0620 Imaging Last Impressions Chest X-Ray 09/17/17 0000 Signed Impressions: Service Date/Time: Sunday, September 17, 2017 15:22 - CONCLUSION: Mild perihilar infiltrates. Small bilateral pleural effusions. Degenerative changes and scoliosis of the thoracolumbar spine. Javier Adam MD Lower Extremity Ultrasound 09/12/17 0000 Signed Impressions: Service Date/Time: Tuesday, September 12, 2017 11:23 - CONCLUSION: 1. No sonographic evidence for lower extremity DVT. Brian De Souza MD Liver Ultrasound 09/12/17 0000 Signed Impressions: Service Date/Time: Tuesday, September 12, 2017 18:26 - CONCLUSION: Enlarged fatty liver. Bilateral pleural effusions. Javier Adam MD Objective Remarks GENERAL: This is a frail elderly lady in no apparent distress. HEENT: Normocephalic, atraumatic. CARDIOVASCULAR: Regular rate and rhythm without murmurs, gallops, or rubs. RESPIRATORY: Fair air entry bilaterally. No wheezes, rales, or rhonchi. GASTROINTESTINAL: Abdomen soft, non-tender, nondistended. Normal active bowel sounds MUSCULOSKELETAL: Extremities without clubbing, cyanosis, or edema. NEURO: Alert and oriented. Moves all ext x4. Generalized weakness. PSYCH: Mood and affect appropriate. Procedures none A/P Problem List: (1) C. difficile diarrhea ICD Code: A04.72 - Enterocolitis due to Clostridium difficile, not specified as recurrent (2) Pneumonia ICD Code: J18.9 - Pneumonia, unspecified organism Assessment and Plan Community acquired pneumonia. Stable. Continue cefepime and Zithromax Severe C diff infection. Improving loose stools. Continue IV Flagyl, po vancomycin, dificid and Asacol and monitor response. Dehydration with electrolyte derangements. Restart IV hydration and replace electrolytes aggressively. We will give 30 mEq IV potassium and 60 mg p.o. potassium as well as 2 g of IV magnesium sulfate today. Elevated LFTs 2/2 sepsis and fatty liver. Hep screen negative. HIV negative. US with enlarged fatty liver. - follow LFTs. Improving. Hypoglycemia Improved. - Placed on IV fluid dextrose. Coagulopathy INR 6.6 on admission. Not on Coumadin. Has elevated LFTs, may be s/t liver disease. Albumin level is low. She has a history of alcohol abuse. - trend LFTs, coags. Improving. - nutritional support. Low folate level. Likely secondary to nutritional deficiency. -Continue folate supplement. PPx: SCDs. Hold pharmacological proph 2/2 thrombocytopenia (likely secondary to infection) Ayaz Lopez MD Sep 17, 2017 10:39
[2017-09-17] MEDS: POTASSIUM CHLORIDE INJ 30 MEQ in DEXT 5%-NACL 0.9% 1000 ML INJ 1,000 ML IV SCH (11:45)
[2017-09-17] MEDS ORDERED: ACETAMINOPHEN 325 MG TAB PO PRN (13:00)
--- NOTE | 2017-09-17 13:48 | HHI.IDPN ---
Subjective Subjective Remarks is a 66-year-old female with past medical history significant for smoking as well as significant alcohol intake in the past reportedly stopped 3 months ago. Patient presented to the emergency department complaining of worsening generalized malaise, diarrhea and weakness. Patient reports that her symptoms have been ongoing for several months at least 5 months that she can remember. She reports used to drink alcohol a lot and then she stopped about 3 months ago. She does report taking "goody powder" for arthritis. Patient reports that approximately 2-3 weeks prior to admission she went to a primary care physician because of worsening shortness of breath, cough with expectoration and she was prescribed trimethoprim sulfa which she took for about 10 days. After she completed the course she developed diarrhea, generalized weakness and malaise along with decreased appetite. She reports having continuous diarrhea almost all day long multiple episodes mostly watery with no blood or mucus. In the emergency department patient was found to have metabolic acidosis with anion gap also she had hypoglycemia with blood glucose of 37 for which paramedics gave her dextrose 10(D10) and blood sugars improved to 170. She reports she hasn't been eating and drinking well recently because of ongoing diarrhea and abdominal discomfort. She denied any fever or chills or chest pain. Patient self reports a history of lupus and possibly diabetes but this remains to be confirmed. Infectious disease is consulted for evaluation and management of severe C. difficile as well as pneumonia. Overnight events reviewed No fevers No rash Diarrhea frequency now reduced patient reports only 2 BMs so far consistency still remains loose but better than yesterday. WBC ok Cough but not much expectoration. Abdominal tenderness/tenesmus. no N/Vomiting. Drinking ensure. Antibiotics Cefepime IV Flagyl IV Vanco oral. Lines Line sites with no e.o infection Past Medical History reviewed Allergies: Coded Allergies: No Known Allergies (Verified Allergy, Unknown, 07/24/17) Objective . Vital Signs Date Time Temp Pulse Resp B/P (MAP) Pulse Ox O2 Delivery O2 Flow Rate FiO2 09/17/17 12:00 97.9 81 18 99/52 (68) 95 09/17/17 12:00 96 Nasal Cannula 3.00 09/17/17 08:00 97.9 114 18 97/64 (75) 96 09/17/17 04:00 75 09/17/17 04:00 97.7 78 18 98/58 (71) 99 2/7/18 01:19 98 Nasal Cannula 3.00 09/17/17 00:00 98.0 82 18 96/55 (69) 99 09/17/17 00:00 82 09/16/17 20:00 Nasal Cannula 2.00 09/16/17 20:00 91 09/16/17 20:00 98.3 84 20 100/61 (74) 100 09/16/17 17:35 98 Nasal Cannula 3.00 09/16/17 16:00 97.2 83 20 97/50 (66) 98 09/16/17 16:00 82 . Laboratory Tests Test 09/16/17 06:55 09/17/17 06:15 White Blood Count 7.6 TH/MM3 6.2 TH/MM3 Red Blood Count 2.35 MIL/MM3 2.21 MIL/MM3 Hemoglobin 8.8 GM/DL 8.2 GM/DL Hematocrit 25.9 % 24.1 % Mean Corpuscular Volume 110.4 FL 109.1 FL Mean Corpuscular Hemoglobin 37.7 PG 37.2 PG Mean Corpuscular Hemoglobin Concent 34.1 % 34.1 % Red Cell Distribution Width 17.9 % 18.1 % Platelet Count 70 TH/MM3 93 TH/MM3 Mean Platelet Volume 8.6 FL 9.2 FL Neutrophils (%) (Auto) 62.6 % Lymphocytes (%) (Auto) 21.8 % Monocytes (%) (Auto) 14.5 % Eosinophils (%) (Auto) 0.8 % Basophils (%) (Auto) 0.3 % Neutrophils # (Auto) 3.9 TH/MM3 Lymphocytes # (Auto) 1.3 TH/MM3 Monocytes # (Auto) 0.9 TH/MM3 Eosinophils # (Auto) 0.0 TH/MM3 Basophils # (Auto) 0.0 TH/MM3 CBC Comment AUTO DIFF Differential Total Cells Counted 100 Neutrophils % (Manual) 75 % Band Neutrophils % 1 % Lymphocytes % 11 % Monocytes % 9 % Neutrophils # (Manual) 5.0 TH/MM3 Myelocytes 4 % Nucleated Red Blood Cells 4 /100 WBC Differential Comment FINAL DIFF MANUAL Dohle Bodies PRESENT Platelet Estimate LOW Platelet Morphology Comment NORMAL Basophilic Stippling FAINT Target Cells 1+ Laboratory Tests Test 09/16/17 06:55 09/17/17 06:20 Blood Urea Nitrogen 1 MG/DL 2 MG/DL Creatinine LESS THAN 0.15 MG/DL 0.17 MG/DL Random Glucose 105 MG/DL 92 MG/DL Total Protein 4.1 GM/DL 4.2 GM/DL Albumin 1.5 GM/DL Calcium Level 6.0 MG/DL 7.0 MG/DL Phosphorus Level 1.4 MG/DL Magnesium Level 1.4 MG/DL 1.3 MG/DL Alkaline Phosphatase 264 U/L Aspartate Amino Transf (AST/SGOT) 82 U/L Alanine Aminotransferase (ALT/SGPT) 43 U/L Total Bilirubin 1.7 MG/DL Direct Bilirubin 0.8 MG/DL Sodium Level 134 MEQ/L 135 MEQ/L Potassium Level 4.0 MEQ/L 2.8 MEQ/L Chloride Level 103 MEQ/L 98 MEQ/L Carbon Dioxide Level 26.1 MEQ/L 28.4 MEQ/L Anion Gap 5 MEQ/L 9 MEQ/L Estimat Glomerular Filtration Rate 495 ML/MIN 429 ML/MIN Protein Corrected Calcium 7.4 MG/DL 8.6 MG/DL Indirect Bilirubin 0.9 MG/DL Procalcitonin 0.11 ng/mL Microbiology Date/Time Source Procedure Growth Status 09/15/17 17:15 Nasal Aspirate Influenza Types A,B Antigen (CHARMAINE) - Final NEGATIVE FOR FLU A AND B ANTIGEN.... Complete 09/15/17 17:15 Urine Random Urine Legionella Antigen - Final PRESUMPTIVE NEGATIVE FOR LEGIONELLA P... Complete 09/15/17 17:15 Urine Random Urine Streptococcus pneumoniae Antigen (M - Final PRESUMPTIVE NEGATIVE FOR STREPTOCOCCU... Complete Imaging Last Impressions Chest X-Ray 09/15/17 0000 Signed Impressions: Service Date/Time: Friday, September 15, 2017 11:57 - CONCLUSION: Patchy infiltrates within the left mid lung field and right lung base consistent with probable pneumonia. Clinical correlation is recommended. Small right pleural effusion. Javier Adam MD Lower Extremity Ultrasound 09/12/17 0000 Signed Impressions: Service Date/Time: Tuesday, September 12, 2017 11:23 - CONCLUSION: 1. No sonographic evidence for lower extremity DVT. Brian De Souza MD Liver Ultrasound 09/12/17 0000 Signed Impressions: Service Date/Time: Tuesday, September 12, 2017 18:26 - CONCLUSION: Enlarged fatty liver. Bilateral pleural effusions. Javier Adam MD Physical Exam GENERAL: Thin built cachectic appearing female patient, in no apparent distress. Looks older than stated age. SKIN: No rashes, ecchymoses or lesions. Cool and dry. HEAD: Atraumatic. Normocephalic. No temporal or scalp tenderness. EYES: Pupils equal round and reactive. Extraocular motions intact. No scleral icterus. No injection or drainage. ENT: Nose without bleeding, purulent drainage or septal hematoma. Throat without erythema, tonsillar hypertrophy or exudate. Uvula midline. Airway patent. NECK: Trachea midline. Supple, nontender, no meningeal signs. CARDIOVASCULAR: Heart sounds audible. RESPIRATORY: Clear to auscultation. Bilateral wheezing noted. Basilar crepitations. GASTROINTESTINAL: Abdomen soft, diffuse tenderness. No guarding no rigidity. MUSCULOSKELETAL: Extremities without clubbing, cyanosis, or edema. NEUROLOGICAL: Awake and alert. Nonfocal exam. Normal speech. Psych cooperative IV line sites with no evidence of infection. Assessment & Plan Remarks Severe C. difficile present on admission Hypotension likely prerenal due to ongoing diarrhea and decreased oral intake due to nausea. Pneumonia present on admission likely community-acquired pneumonia no prior hospitalization in last 5 years. History of being treated for possible pneumonia with Bactrim prior to admission. Possible acute COPD exacerbation(given history of smoking) Hypoalbuminemia, anemia, weight loss: Rule out chronic infections like HIV. Hepatitis panel negative. thrombocytopenia Abnormal Liver function tests: sepsis, fatty liver Recs: Continue Flagyl IV for cdiff infection Continue Cefepime IV Continue Oral vanco Continue oral Asacol (Mesalamine): Continues to have large volume diarrhea. Concern for post infectious inflammatory/secretory diarrhea. Continue Dificid (BNAP negative strain and on concomitant antibiotics) Not candidate for Vanco enema as may not be able to retain due to large volume frequent diarrhea. HIV negative. Hepatitis panel negative. Follow cultures follow clinically. Treat with shortest course for PNA due to concomitant Cdiff. Jessie Harmon MD Sep 17, 2017 13:48
--- NOTE | 2017-09-17 16:29 | RADRPT ---
EXAM DATE/TIME: 09/17/2017 15:22 [facility] COMPARISON: CHEST SINGLE AP, September 15, 2017, 11:57. INDICATIONS : Cough. Evaluate for pneumonia per order. MEDICAL HISTORY : Respiratory disorders. COPD. Asthma. Chicken pox. Measles. Eye problems. SURGICAL HISTORY : Tubal ligation. Left hip. Varicose vein. ENCOUNTER: Subsequent ACUITY: 4 - 6 days PAIN SCORE: 0/10 LOCATION: Bilateral chest FINDINGS: Small bilateral pleural effusions are stable. Mild perihilar infiltrates are again noted. The heart i s stable. Degenerative changes and scoliosis of the thoracolumbar spine are noted. CONCLUSION: Mild perihilar infiltrates. Small bilateral pleural effusions. Degenerative changes and scoliosis of the thoracolumbar spine. Javier Adam MD on September 17, 2017 at 16:24 Board Certified Radiologist. This report was verified electronically.
[2017-09-17 21:35] LABS: BICARBONATE 26.6 MEQ/L (21.0-32.0); CALCIUM 7.3 MG/DL (8.5-10.1); CREATININE 0.16 MG/DL (0.50-1.00); MAGNESIUM 1.8 MG/DL (1.5-2.5)
[2017-09-17 21:49] LABS: CALCIUM-PROTEIN CORRECTED 8.8 MG/DL (8.5-10.1); TOTAL PROTEIN 4.5 GM/DL (6.4-8.2)
[2017-09-18] VITALS (8 sets, daily range): BP systolic 92–110; BP diastolic 58–76; PULSE 64–101; RESP 16–18; TEMP 97.6–98.6; O2SAT 89–99
[2017-09-18] MEDS: metroNIDAZOLE 500 MG INJ 100 ML IV SCH (00:44)
[2017-09-18] MEDS: MESALAMINE HD 800 MG DELAYED RELEASE TAB PO SCH ×3 (05:18→22:00)
[2017-09-18] MEDS: POTASSIUM CHLORIDE INJ 30 MEQ in DEXT 5%-NACL 0.9% 1000 ML INJ 1,000 ML IV SCH (05:23)
[2017-09-18] MEDS: CEFEPIME INJ 2,000 MG in SODIUM CHLORIDE 0.9% INJ 100 ML IV SCH (05:24)
[2017-09-18 08:45] LABS: AUTOMATED NEUTROPHIL # 3.7 TH/MM3 (1.8-7.7); BASOPHIL % 0.5 % (0.0-2.0); EOSINOPHIL % 0.7 % (0.0-4.0); HEMATOCRIT 24.9 % (35.0-46.0); HEMOGLOBIN 8.7 GM/DL (11.6-15.3); LYMPH % 16.6 % (9.0-44.0); LYMPHOCYTE # 0.9 TH/MM3 (1.0-4.8); MEAN CELL VOLUME 108.2 FL (80.0-100.0); MEAN CORPUSCULAR HEMOGLOBIN 37.7 PG (27.0-34.0); MEAN CORPUSCULAR HGB CONC 34.9 % (32.0-36.0); MONO % 16.9 % (0.0-8.0); NEUT % 65.3 % (16.0-70.0); PLATELET COUNT 103 TH/MM3 (150-450); RED CELL DISTRIBUTION WIDTH 18.6 % (11.6-17.2); WHITE BLOOD COUNT 5.7 TH/MM3 (4.0-11.0)
[2017-09-18 09:01] LABS: ALBUMIN 1.6 GM/DL (3.4-5.0); ALT (GPT) 27 U/L (10-53); AST (GOT) 42 U/L (15-37); BICARBONATE 30.4 MEQ/L (21.0-32.0); BLOOD UREA NITROGEN 1 MG/DL (7-18); CALCIUM 7.5 MG/DL (8.5-10.1); CHLORIDE 99 MEQ/L (98-107); CREATININE LESS THAN 0.15 MG/DL (0.50-1.00); GLOMERULAR FILTRATION RATE 495 ML/MIN (>89); GLUCOSE,RANDOM 88 MG/DL (74-106); MAGNESIUM 1.8 MG/DL (1.5-2.5); SODIUM (NA) 134 MEQ/L (136-145)
[2017-09-18 09:04] LABS: ALKALINE PHOSPHATASE 245 U/L (45-117); TOTAL BILIRUBIN ADULT 1.5 MG/DL (0.2-1.0); TOTAL PROTEIN 4.4 GM/DL (6.4-8.2)
[2017-09-18] MEDS: CALCIUM CARBONATE 1.25 GM (CA 500 MG) TAB PO SCH (09:41)
[2017-09-18] MEDS: MEGESTROL ACETATE 40 MG TAB PO SCH ×2 (09:41→21:00)
[2017-09-18] MEDS: VANCOMYCIN 500 MG VIAL (FOR ORAL USE ONLY) PO SCH ×4 (09:41→22:13)
[2017-09-18] MEDS: AZITHROMYCIN 250 MG TAB PO SCH (09:41)
[2017-09-18] MEDS: FOLIC ACID 1 MG TAB PO SCH (09:42)
[2017-09-18 10:08] LABS: BANDS 5 % (0-6); CORRECTED NUCLEATED RBC 8 /100 WBC (0-0); LYMPHOCYTES 13 % (9-44); METAMYELOCYTES 1 % (0-1); MONOCYTES 12 % (0-8); MYELOCYTES 1 % (0-0); NEUTROPHIL # MANUAL DIFF 4.2 TH/MM3 (1.8-7.7); NUCLEATED RED BLOOD CELL 8 (0-0); POLYS (SEG NEUTROPHILS) 66 % (16-70)
[2017-09-18 10:09] LABS: TARGET CELLS 1+ (NORMAL)
[2017-09-18 10:10] LABS: HOWELL-JOLLY BODIES PRESENT (NONE SEEN); POLYCHROMASIA 2.5 % (0.0-1.9)
--- NOTE | 2017-09-18 13:06 | HHI.PR ---
Subjective Remarks Follow-up pneumonia and C. difficile. Complains of nausea and refused night medications. Still with loose stools. Denies abdominal pain. Discussed with nursing Objective Vitals Vital Signs Date Time Temp Pulse Resp B/P (MAP) Pulse Ox O2 Delivery O2 Flow Rate FiO2 09/18/17 11:36 98.6 77 16 92/58 (69) 99 09/18/17 08:00 98.0 88 18 99/70 (80) 98 09/18/17 07:50 Nasal Cannula 3.00 09/18/17 04:30 98.0 66 18 110/76 (87) 96 09/18/17 03:48 81 09/18/17 00:45 97.6 64 17 106/75 (85) 95 09/17/17 23:43 77 09/17/17 20:00 99.1 95 17 99/59 (72) 96 09/17/17 19:45 103 09/17/17 19:00 Nasal Cannula 3.00 09/17/17 17:48 Nasal Cannula 3.00 09/17/17 16:07 97.8 78 18 89/48 (62) 100 I/O 09/17/17 09/17/17 09/17/17 09/18/17 09/18/17 09/18/17 07:00 15:00 23:00 07:00 15:00 23:00 Intake Total 1040 ml 540 ml 400 ml 1700 ml Output Total 400 ml Balance 640 ml 540 ml 400 ml 1700 ml Intake Oral 240 ml 240 ml 500 ml IV Total 800 ml 300 ml 400 ml 1200 ml Output Urine Total 400 ml # Voids 3 1 # Bowel Movements 2 1 1 Result Diagram: 09/18/17 0816 09/18/17 0816 Imaging Last Impressions Chest X-Ray 09/17/17 0000 Signed Impressions: Service Date/Time: Sunday, September 17, 2017 15:22 - CONCLUSION: Mild perihilar infiltrates. Small bilateral pleural effusions. Degenerative changes and scoliosis of the thoracolumbar spine. Javier Adam MD Lower Extremity Ultrasound 09/12/17 0000 Signed Impressions: Service Date/Time: Tuesday, September 12, 2017 11:23 - CONCLUSION: 1. No sonographic evidence for lower extremity DVT. Brian De Souza MD Liver Ultrasound 09/12/17 0000 Signed Impressions: Service Date/Time: Tuesday, September 12, 2017 18:26 - CONCLUSION: Enlarged fatty liver. Bilateral pleural effusions. Javier Adam MD Objective Remarks GENERAL: This is a frail elderly lady in no apparent distress. HEENT: Normocephalic, atraumatic. CARDIOVASCULAR: Regular rate and rhythm without murmurs, gallops, or rubs. RESPIRATORY: Fair air entry bilaterally. No wheezes, rales, or rhonchi. GASTROINTESTINAL: Abdomen soft, non-tender, nondistended. Normal active bowel sounds MUSCULOSKELETAL: Extremities without clubbing, cyanosis, or edema. NEURO: Alert and oriented. Moves all ext x4. Generalized weakness. PSYCH: Mood and affect appropriate. Procedures none A/P Problem List: (1) C. difficile diarrhea ICD Code: A04.72 - Enterocolitis due to Clostridium difficile, not specified as recurrent (2) Pneumonia ICD Code: J18.9 - Pneumonia, unspecified organism Assessment and Plan Community acquired pneumonia. Stable. Repeat pro calcitonin within normal limits. Continue Zithromax and discontinue cefepime because of C. difficile Severe C diff infection. Continue po vancomycin and Asacol and monitor response. IV Flagyl and dificid discontinued Dehydration with electrolyte derangements. Restart IV hydration and replace electrolytes aggressively. Elevated LFTs 2/2 sepsis and fatty liver. Hep screen negative. HIV negative. US with enlarged fatty liver. - follow LFTs. Improving. Hypoglycemia Improved. - Placed on IV fluid dextrose. Coagulopathy INR 6.6 on admission. Not on Coumadin. Has elevated LFTs, may be s/t liver disease. Albumin level is low. She has a history of alcohol abuse. - trend LFTs, coags. Improving. - nutritional support. Low folate level. Likely secondary to nutritional deficiency. -Continue folate supplement. PPx: SCDs. Hold pharmacological proph 2/2 thrombocytopenia (likely secondary to infection) Discharge Planning Rehabilitation when medically stable Ayaz Lopez MD Sep 18, 2017 13:06
--- NOTE | 2017-09-18 14:08 | PD.CONS ---
HPI History of Present Illness This is a 66 year old F who presented to the ER on Sep 11 with complaints of generalized weakness and malaise. Pt is a poor historian, however she states that she has been increasingly fatigued since the Summer but worse over the past three months. In the ER she was found to be hypoglycemic and acidotic. Pt was also found to have elevated INR at 6.6, denies taking blood thinners, noted to be possibly secondary to liver disease. Pt denies history of liver disease, however admits to heavy ETOH use. Currently drinking 1-2 beers a night prior to admission. Pt currently being treated for C. Diff and Pneumonia. BMs now slowed down to two a day and more formed. Currently on oral Vanco, previous Dificid which was discontinued due to new onset nausea possibly related to the medication. Pt denies any BRB in BMs or black, tarry stools. Associated abdominal cramping, diffuse, states it started five days prior to admission. Denies history of C. diff. Pt also has reports of dysphagia, states started two weeks prior to arrival with decreased appetite and feels a little bit better today. Denies odynophagia. Recent weight loss, states related to decreased appetite and not feeling well, however she is unsure how much weight she has lost and over what period of time. Last EGD and colonoscopy done 3-4 years ago in [place], she reports both exams were normal. Eduardo family history of cancer. ETOH, daily. Smokes, recently cut back a month and a half ago, but was smoking a pack a day. Also reports taking "Goody powder" daily for chronic aches and pains. (Alexsandra Sinclair) [facility] Past Medical History Questionable diabetes mellitus Lupus Past Surgical History Not aware of previous surgery (Alexsandra Sinclair) Coded Allergies: No Known Allergies (Verified Allergy, Unknown, 07/24/17) Family History Review with the patient,not aware of significant medical history runs in his family Social History Smoke 3 cigarettes a day, previously PPD smoker Drinks 1-2 beers a day (Alexsandra Sinclair) Review of Systems Gastrointestinal: COMPLAINS OF: Abdominal pain, Diarrhea, Nausea, Difficulty Swallowing, DENIES: Black stools, Bloody stools, Constipation, Vomiting, Odynophagia, Heartburn, Hematemesis (Alexsandra Sinclair) GI Exam Vitals I&O Vital Signs Date Time Temp Pulse Resp B/P (MAP) Pulse Ox O2 Delivery O2 Flow Rate FiO2 09/18/17 11:36 98.6 77 16 92/58 (69) 99 09/18/17 08:00 98.0 88 18 99/70 (80) 98 09/18/17 07:50 Nasal Cannula 3.00 09/18/17 04:30 98.0 66 18 110/76 (87) 96 09/18/17 03:48 81 09/18/17 00:45 97.6 64 17 106/75 (85) 95 09/17/17 23:43 77 09/17/17 20:00 99.1 95 17 99/59 (72) 96 09/17/17 19:45 103 09/17/17 19:00 Nasal Cannula 3.00 09/17/17 17:48 Nasal Cannula 3.00 09/17/17 16:07 97.8 78 18 89/48 (62) 100 I/O 09/17/17 09/17/17 09/17/17 09/18/17 09/18/17 09/18/17 07:00 15:00 23:00 07:00 15:00 23:00 Intake Total 1040 ml 540 ml 400 ml 1700 ml Output Total 400 ml Balance 640 ml 540 ml 400 ml 1700 ml Intake Oral 240 ml 240 ml 500 ml IV Total 800 ml 300 ml 400 ml 1200 ml Output Urine Total 400 ml # Voids 3 1 # Bowel Movements 2 1 1 Imaging Last Impressions Chest X-Ray 09/17/17 0000 Signed Impressions: Service Date/Time: Sunday, September 17, 2017 15:22 - CONCLUSION: Mild perihilar infiltrates. Small bilateral pleural effusions. Degenerative changes and scoliosis of the thoracolumbar spine. Javier Adam MD Lower Extremity Ultrasound 09/12/17 0000 Signed Impressions: Service Date/Time: Tuesday, September 12, 2017 11:23 - CONCLUSION: 1. No sonographic evidence for lower extremity DVT. Brian De Souza MD Liver Ultrasound 09/12/17 0000 Signed Impressions: Service Date/Time: Tuesday, September 12, 2017 18:26 - CONCLUSION: Enlarged fatty liver. Bilateral pleural effusions. Javier Adam MD Laboratory Test 09/17/17 20:12 09/18/17 08:16 Blood Urea Nitrogen 3 MG/DL 1 MG/DL Creatinine 0.16 MG/DL LESS THAN 0.15 MG/DL Random Glucose 111 MG/DL 88 MG/DL Total Protein 4.5 GM/DL 4.4 GM/DL Calcium Level 7.3 MG/DL 7.5 MG/DL Magnesium Level 1.8 MG/DL 1.8 MG/DL Sodium Level 133 MEQ/L 134 MEQ/L Potassium Level 4.0 MEQ/L 3.6 MEQ/L Chloride Level 100 MEQ/L 99 MEQ/L Carbon Dioxide Level 26.6 MEQ/L 30.4 MEQ/L Anion Gap 6 MEQ/L 5 MEQ/L Estimat Glomerular Filtration Rate 460 ML/MIN 495 ML/MIN Protein Corrected Calcium 8.8 MG/DL Procalcitonin 0.08 ng/mL White Blood Count 5.7 TH/MM3 Red Blood Count 2.30 MIL/MM3 Hemoglobin 8.7 GM/DL Hematocrit 24.9 % Mean Corpuscular Volume 108.2 FL Mean Corpuscular Hemoglobin 37.7 PG Mean Corpuscular Hemoglobin Concent 34.9 % Red Cell Distribution Width 18.6 % Platelet Count 103 TH/MM3 Mean Platelet Volume 9.0 FL Neutrophils (%) (Auto) 65.3 % Lymphocytes (%) (Auto) 16.6 % Monocytes (%) (Auto) 16.9 % Eosinophils (%) (Auto) 0.7 % Basophils (%) (Auto) 0.5 % Neutrophils # (Auto) 3.7 TH/MM3 Lymphocytes # (Auto) 0.9 TH/MM3 Monocytes # (Auto) 1.0 TH/MM3 Eosinophils # (Auto) 0.0 TH/MM3 Basophils # (Auto) 0.0 TH/MM3 CBC Comment AUTO DIFF Differential Total Cells Counted 100 Neutrophils % (Manual) 66 % Band Neutrophils % 5 % Lymphocytes % 13 % Monocytes % 12 % Eosinophils % 2 % Neutrophils # (Manual) 4.2 TH/MM3 Metamyelocytes 1 % Myelocytes 1 % Nucleated Red Blood Cells 8 /100 WBC Differential Comment FINAL DIFF MANUAL Platelet Estimate LOW Platelet Morphology Comment NORMAL Polychromasia 2.5 % Spherocytes Target Cells 1+ Castellanos-[place] Bodies PRESENT Red Cell Morphology Comment Albumin 1.6 GM/DL Alkaline Phosphatase 245 U/L Aspartate Amino Transf (AST/SGOT) 42 U/L Alanine Aminotransferase (ALT/SGPT) 27 U/L Total Bilirubin 1.5 MG/DL Date/Time Source Procedure Growth Status 09/11/17 13:30 Blood Peripheral Aerobic Blood Culture - Final NO GROWTH IN 5 DAYS Complete 09/11/17 13:30 Blood Peripheral Anaerobic Blood Culture - Final NO GROWTH IN 5 DAYS Complete 09/15/17 17:15 Nasal Aspirate Influenza Types A,B Antigen (CHARMAINE) - Final NEGATIVE FOR FLU A AND B ANTIGEN.... Complete 09/15/17 17:15 Urine Random Urine Legionella Antigen - Final PRESUMPTIVE NEGATIVE FOR LEGIONELLA P... Complete 09/15/17 17:15 Urine Random Urine Streptococcus pneumoniae Antigen (M - Final PRESUMPTIVE NEGATIVE FOR STREPTOCOCCU... Complete Physical Examination HEENT:Normocephalic; atraumatic CHEST: Even/unlabored 2L humidified O2 via NC CARDIAC: RRR ABDOMEN: Mildly distended, soft, mild diffuse TTP, bowel sounds active EXTREMITIES: No clubbing, cyanosis, or edema. SKIN: Normal; no rash; no jaundice. [place]: No focal deficits; alert and oriented times three. (Alexsandra Sinclair) Assessment and Plan Plan Assessment: Pt is poor historian - Dysphagia- Pt reports dysphagia that began prior to admission with associated decreased appetite. She attributes it to overall not feeling well. Denies odynophagia. Reports improvement in swallowing today and denies any difficulty. Previously with both liquids and solids. Last EGD 3-4 years ago in [place] and states normal exam. Denies acid reflux, heartburn. Of note, takes Goody Powder daily at home. Also previous PPD smoker but has decreased smoking to 3 cigarettes per day over the past month and a half - Weight loss, unintentional- Pt is unsure how much weight she has lost and over what period of time. Decreased appetite. Denies family history of cancer. Last colonoscopy 3-4 years ago in [place] and states normal exam. - Elevated LFTs- likely secondary to ETOH- improving since admission. US liver (09/12) --> Enlarged fatty liver. Hepatitis panel negative. - Coagulopathy- INR 6.6. on arrival, not on blood thinners, now corrected. ? related to liver disease - Abdominal cramping/pain- Diffuse, states started at the same time diarrhea began. - Diarrhea- C. diff positive, Epid negative. Currently on oral Vanco, was previously on Dificid which has since been discontinued due to pts complaints of nausea. Denies continued nausea. BMs have decrease, now 3 BMs a day. Denies BRB in stool. - Pneumonia- per attending. Currently on 2 L humidified O2 via NC. Azithromycin Plan: Pt refusing endoscopic procedures at this time CT abdomen and pelvis Continue Vancomycin Monitor stool count Monitor LFTs Liver work up Further recommendations to follow based on results of above Pt has been seen and examined by myself and Dr. Acosta and this note is written on her behalf (Alexsandra Sinlcair) Physician Comments seen, examined agree with above ct abdomen/pelvis labs as ordered for liver workup egd/colon if agrees (Aixa Acosta MD) Alexsandra Sinclair Sep 18, 2017 14:08 Aixa Acosta MD Sep 18, 2017 14:22
--- NOTE | 2017-09-18 14:12 | HHI.IDPN ---
Subjective Subjective Remarks is a 66-year-old female with past medical history significant for smoking as well as significant alcohol intake in the past reportedly stopped 3 months ago. Patient presented to the emergency department complaining of worsening generalized malaise, diarrhea and weakness. Patient reports that her symptoms have been ongoing for several months at least 5 months that she can remember. She reports used to drink alcohol a lot and then she stopped about 3 months ago. She does report taking "goody powder" for arthritis. Patient reports that approximately 2-3 weeks prior to admission she went to a primary care physician because of worsening shortness of breath, cough with expectoration and she was prescribed trimethoprim sulfa which she took for about 10 days. After she completed the course she developed diarrhea, generalized weakness and malaise along with decreased appetite. She reports having continuous diarrhea almost all day long multiple episodes mostly watery with no blood or mucus. In the emergency department patient was found to have metabolic acidosis with anion gap also she had hypoglycemia with blood glucose of 37 for which paramedics gave her dextrose 10(D10) and blood sugars improved to 170. She reports she hasn't been eating and drinking well recently because of ongoing diarrhea and abdominal discomfort. She denied any fever or chills or chest pain. Patient self reports a history of lupus and possibly diabetes but this remains to be confirmed. Infectious disease is consulted for evaluation and management of severe C. difficile as well as pneumonia. Overnight events reviewed No fevers No rash Diarrhea frequency now reduced patient reports only 2 BMs so far consistency still remains loose but better than yesterday. WBC ok Cough but not much expectoration. Abdominal tenderness/tenesmus. no N/Vomiting. Drinking ensure. Antibiotics Cefepime IV Flagyl IV Vanco oral. Lines Line sites with no e.o infection Past Medical History reviewed Allergies: Coded Allergies: No Known Allergies (Verified Allergy, Unknown, 07/24/17) Objective . Vital Signs Date Time Temp Pulse Resp B/P (MAP) Pulse Ox O2 Delivery O2 Flow Rate FiO2 09/18/17 11:36 98.6 77 16 92/58 (69) 99 09/18/17 08:00 98.0 88 18 99/70 (80) 98 09/18/17 07:50 Nasal Cannula 3.00 09/18/17 04:30 98.0 66 18 110/76 (87) 96 09/18/17 03:48 81 09/18/17 00:45 97.6 64 17 106/75 (85) 95 09/17/17 23:43 77 09/17/17 20:00 99.1 95 17 99/59 (72) 96 09/17/17 19:45 103 09/17/17 19:00 Nasal Cannula 3.00 09/17/17 17:48 Nasal Cannula 3.00 09/17/17 16:07 97.8 78 18 89/48 (62) 100 . Laboratory Tests Test 09/17/17 06:15 09/18/17 08:16 White Blood Count 6.2 TH/MM3 5.7 TH/MM3 Red Blood Count 2.21 MIL/MM3 2.30 MIL/MM3 Hemoglobin 8.2 GM/DL 8.7 GM/DL Hematocrit 24.1 % 24.9 % Mean Corpuscular Volume 109.1 FL 108.2 FL Mean Corpuscular Hemoglobin 37.2 PG 37.7 PG Mean Corpuscular Hemoglobin Concent 34.1 % 34.9 % Red Cell Distribution Width 18.1 % 18.6 % Platelet Count 93 TH/MM3 103 TH/MM3 Mean Platelet Volume 9.2 FL 9.0 FL Neutrophils (%) (Auto) 62.6 % 65.3 % Lymphocytes (%) (Auto) 21.8 % 16.6 % Monocytes (%) (Auto) 14.5 % 16.9 % Eosinophils (%) (Auto) 0.8 % 0.7 % Basophils (%) (Auto) 0.3 % 0.5 % Neutrophils # (Auto) 3.9 TH/MM3 3.7 TH/MM3 Lymphocytes # (Auto) 1.3 TH/MM3 0.9 TH/MM3 Monocytes # (Auto) 0.9 TH/MM3 1.0 TH/MM3 Eosinophils # (Auto) 0.0 TH/MM3 0.0 TH/MM3 Basophils # (Auto) 0.0 TH/MM3 0.0 TH/MM3 CBC Comment AUTO DIFF AUTO DIFF Differential Total Cells Counted 100 100 Neutrophils % (Manual) 75 % 66 % Band Neutrophils % 1 % 5 % Lymphocytes % 11 % 13 % Monocytes % 9 % 12 % Neutrophils # (Manual) 5.0 TH/MM3 4.2 TH/MM3 Myelocytes 4 % 1 % Nucleated Red Blood Cells 4 /100 WBC 8 /100 WBC Differential Comment FINAL DIFF MANUAL FINAL DIFF MANUAL Dohle Bodies PRESENT Platelet Estimate LOW LOW Platelet Morphology Comment NORMAL NORMAL Basophilic Stippling FAINT Target Cells 1+ 1+ Eosinophils % 2 % Metamyelocytes 1 % Polychromasia 2.5 % Spherocytes Castellanos-[place] Bodies PRESENT Red Cell Morphology Comment Laboratory Tests Test 09/17/17 06:20 09/17/17 20:12 09/18/17 08:16 Blood Urea Nitrogen 2 MG/DL 3 MG/DL 1 MG/DL Creatinine 0.17 MG/DL 0.16 MG/DL LESS THAN 0.15 MG/DL Random Glucose 92 MG/DL 111 MG/DL 88 MG/DL Total Protein 4.2 GM/DL 4.5 GM/DL 4.4 GM/DL Calcium Level 7.0 MG/DL 7.3 MG/DL 7.5 MG/DL Magnesium Level 1.3 MG/DL 1.8 MG/DL 1.8 MG/DL Sodium Level 135 MEQ/L 133 MEQ/L 134 MEQ/L Potassium Level 2.8 MEQ/L 4.0 MEQ/L 3.6 MEQ/L Chloride Level 98 MEQ/L 100 MEQ/L 99 MEQ/L Carbon Dioxide Level 28.4 MEQ/L 26.6 MEQ/L 30.4 MEQ/L Anion Gap 9 MEQ/L 6 MEQ/L 5 MEQ/L Estimat Glomerular Filtration Rate 429 ML/MIN 460 ML/MIN 495 ML/MIN Protein Corrected Calcium 8.6 MG/DL 8.8 MG/DL Procalcitonin 0.08 ng/mL Albumin 1.6 GM/DL Alkaline Phosphatase 245 U/L Aspartate Amino Transf (AST/SGOT) 42 U/L Alanine Aminotransferase (ALT/SGPT) 27 U/L Total Bilirubin 1.5 MG/DL Microbiology Date/Time Source Procedure Growth Status 09/15/17 17:15 Nasal Aspirate Influenza Types A,B Antigen (CHARMAINE) - Final NEGATIVE FOR FLU A AND B ANTIGEN.... Complete 09/15/17 17:15 Urine Random Urine Legionella Antigen - Final PRESUMPTIVE NEGATIVE FOR LEGIONELLA P... Complete 09/15/17 17:15 Urine Random Urine Streptococcus pneumoniae Antigen (M - Final PRESUMPTIVE NEGATIVE FOR STREPTOCOCCU... Complete Imaging Last Impressions Chest X-Ray 09/15/17 0000 Signed Impressions: Service Date/Time: Friday, September 15, 2017 11:57 - CONCLUSION: Patchy infiltrates within the left mid lung field and right lung base consistent with probable pneumonia. Clinical correlation is recommended. Small right pleural effusion. Javier Adam MD Lower Extremity Ultrasound 09/12/17 Signed Impressions: Service Date/Time: Tuesday, September 12, 2017 11:23 - CONCLUSION: 1. No sonographic evidence for lower extremity DVT. Brian De Souza MD Liver Ultrasound 09/12/17 0000 Signed Impressions: Service Date/Time: Tuesday, September 12, 2017 18:26 - CONCLUSION: Enlarged fatty liver. Bilateral pleural effusions. Javier Adam MD Physical Exam GENERAL: Thin built cachectic appearing female patient, in no apparent distress. Looks older than stated age. SKIN: No rashes, ecchymoses or lesions. Cool and dry. HEAD: Atraumatic. Normocephalic. No temporal or scalp tenderness. EYES: Pupils equal round and reactive. Extraocular motions intact. No scleral icterus. No injection or drainage. ENT: Nose without bleeding, purulent drainage or septal hematoma. Throat without erythema, tonsillar hypertrophy or exudate. Uvula midline. Airway patent. NECK: Trachea midline. Supple, nontender, no meningeal signs. CARDIOVASCULAR: Heart sounds audible. RESPIRATORY: Clear to auscultation. Bilateral wheezing noted. Basilar crepitations. GASTROINTESTINAL: Abdomen soft, diffuse tenderness. No guarding no rigidity. MUSCULOSKELETAL: Extremities without clubbing, cyanosis, or edema. NEUROLOGICAL: Awake and alert. Nonfocal exam. Normal speech. Psych cooperative IV line sites with no evidence of infection. Assessment & Plan Remarks Severe C. difficile present on admission Hypotension likely prerenal due to ongoing diarrhea and decreased oral intake due to nausea. Pneumonia present on admission likely community-acquired pneumonia no prior hospitalization in last 5 years. History of being treated for possible pneumonia with Bactrim prior to admission. Possible acute COPD exacerbation(given history of smoking) Hypoalbuminemia, anemia, weight loss: Rule out chronic infections like HIV. Hepatitis panel negative. thrombocytopenia Abnormal Liver function tests: sepsis, fatty liver Recs: DC Flagyl IV DC Cefepime IV Continue Oral vanco Continue oral Asacol (Mesalamine): Continues to have large volume diarrhea. Concern for post infectious inflammatory/secretory diarrhea. DC Dificid is a macrolide and can cause nausea. Addition of asacol helped reduce large volume diarrhea possible secretory inflammatory component. GI consult: patient complains of dysphagia, odynophagia. HIV negative. Hepatitis panel negative. Follow cultures follow clinically. dw and GI [employer] Jessie Vieira MD Sep 18, 2017 14:12
[2017-09-18] MEDS ORDERED: DIATRIZOATE MEGLUM/DIATRIZOATE SOD 9 ML CUP PO ONE (15:00)
[2017-09-18] MEDS: POTASSIUM CHLORIDE 20 MEQ CONTROLLED RELEASE TAB PO SCH (16:16)
[2017-09-18] MEDS: SODIUM CHLORIDE 0.9% FLUSH 10 ML FLUSH IV FLUSH SCH ×2 (16:25→21:00)
[2017-09-18] MEDS ORDERED: IOHEXOL 350 MG/ML 10 ML VIAL (for RAD DIAG) IVCONTRAST ONE (18:33)
--- NOTE | 2017-09-18 18:44 | RADRPT ---
EXAM DATE/TIME: 09/18/2017 18:23 [facility] COMPARISON: No previous studies available for comparison. INDICATIONS : Weight loss. IV CONTRAST: 100 cc Omnipaque 350 (iohexol) IV ORAL CONTRAST: Partial prescribed oral contrast ingested. RADIATION DOSE: 12.78 CTDIvol (mGy) MEDICAL HISTORY : Chronic obstructive pulmonary disease. SURGICAL HISTORY : Tubal ligation. Hip replacement. ENCOUNTER: Initial ACUITY: 1 day PAIN SCALE: 0/10 LOCATION: abdomen TECHNIQUE: Volumetric scanning of the abdomen and pelvis was performed. Using automated exposure control and ad justment of the mA and/or kV according to patient size, radiation dose was kept as low as reasonably achievable to obtain optimal diagnostic quality images. DICOM format image data is available electro nically for review and comparison. FINDINGS: There is severe fatty infiltration of the liver. No focal hepatic lesion. CT appearance of the gallbl adder is within normal limits. There is wall thickening and robust mucosal enhancement of the colon, fairly generalized but especial ly left-sided. No abscess, perforation or obstruction. Common bile duct measures 10 mm at the level of the pancreatic head. There is mildly masslike wall th ickening focally of the third portion of the duodenum an ampullary mass would be in the differential. However, I don't see pancreatic duct dilatation. No perceptible stone. Spleen, pancreas, adrenal glands and kidneys are within normal limits. There is small ascites. Also body wall edema/anasarca. At the visualized lung bases, atelectasis with moderate right and small left pleural effusions are noted. CONCLUSION: 1. Colitis suspected in the proper clinical setting, most likely infectious or inflammatory. C. diffi cile colitis should be included in the differential. 2. Mildly prominent distal common bile duct and with some focal thickening of the third portion of th e duodenum. Duodenal or ampullary mass not excludable. Direct visualization with EGD and ERCP suggest ed. 3. Severe and diffuse fatty infiltration of the liver. No focal hepatic lesion. 4. Small ascites, right greater than left pleural effusions and diffuse body wall edema/anasarca. Marlon Nascimento MD on September 18, 2017 at 18:38 Board Certified Radiologist. This report was verified electronically.
[2017-09-18 21:47] LABS: % SATURATION IRON PROFILE 51.1 % (20-50); IRON (FE) 58 MCG/DL (50-170); TOTAL IRON BINDING CAPACITY 113 MCG/DL (250-450)
[2017-09-18 21:51] LABS: FERRITIN 514 NG/ML (8-252)
[2017-09-19] VITALS (11 sets, daily range): BP systolic 92–117; BP diastolic 50–64; PULSE 62–98; RESP 17–21; TEMP 97.5–98.8; O2SAT 92–99
[2017-09-19] MEDS: POTASSIUM CHLORIDE INJ 30 MEQ in DEXT 5%-NACL 0.9% 1000 ML INJ 1,000 ML IV SCH (04:12)
[2017-09-19] MEDS: MESALAMINE HD 800 MG DELAYED RELEASE TAB PO SCH ×3 (05:44→22:00)
[2017-09-19] MEDS: SODIUM CHLORIDE 0.9% FLUSH 10 ML FLUSH IV FLUSH SCH ×2 (06:54→22:39)
[2017-09-19] MEDS: VANCOMYCIN 500 MG VIAL (FOR ORAL USE ONLY) PO SCH (08:40)
[2017-09-19] MEDS: MEGESTROL ACETATE 40 MG TAB PO SCH ×2 (08:40→21:00)
[2017-09-19] MEDS: FOLIC ACID 1 MG TAB PO SCH (08:40)
[2017-09-19] MEDS: CALCIUM CARBONATE 1.25 GM (CA 500 MG) TAB PO SCH (08:40)
[2017-09-19] MEDS: AZITHROMYCIN 250 MG TAB PO SCH (08:40)
[2017-09-19] MEDS: POTASSIUM CHLORIDE 20 MEQ CONTROLLED RELEASE TAB PO SCH (08:41)
--- NOTE | 2017-09-19 11:23 | HHI.GIFU ---
Subjective Remarks Pt lying in bed, states she is not feeling well today. Complaining of feeling very weak. Breakfast tray at bedside, only a few bites eaten. Denies nausea, vomiting. One BM this morning, states semi-formed. (Alexsandra Sinclair) Objective Vitals I&O Vital Signs Date Time Temp Pulse Resp B/P (MAP) Pulse Ox O2 Delivery O2 Flow Rate FiO2 09/19/17 08:00 98.6 81 20 117/59 (78) 97 09/19/17 04:00 80 09/19/17 04:00 98.6 92 21 92/54 (67) 95 09/19/17 00:00 Nasal Cannula 3.00 09/19/17 00:00 98.4 89 19 102/56 (71) 97 09/18/17 23:50 82 09/18/17 20:00 86 09/18/17 20:00 97.7 92 18 109/63 (78) 89 09/18/17 19:00 Nasal Cannula 3.00 09/18/17 16:00 97.7 101 18 97/62 (74) 94 09/18/17 11:36 98.6 77 16 92/58 (69) 99 I/O 09/18/17 09/18/17 09/18/17 09/19/17 09/19/17 09/19/17 07:00 15:00 23:00 07:00 15:00 23:00 Intake Total 1700 ml 600 ml 400 ml Output Total 500 ml 1100 ml Balance 1700 ml 100 ml -700 ml Intake Oral 500 ml 600 ml 400 ml IV Total 1200 ml Output Urine Total 500 ml 1100 ml # Voids 1 # Bowel Movements 1 2 2 Laboratory Laboratory Tests Test 09/18/17 20:50 09/19/17 06:37 Iron Level 58 Total Iron Binding Capacity 113 Percent Iron Saturation 51.1 Ferritin 514 Date/Time Source Procedure Growth Status 09/11/17 13:30 Blood Peripheral Aerobic Blood Culture - Final NO GROWTH IN 5 DAYS Complete 09/11/17 13:30 Blood Peripheral Anaerobic Blood Culture - Final NO GROWTH IN 5 DAYS Complete 09/15/17 17:15 Nasal Aspirate Influenza Types A,B Antigen (CHARMAINE) - Final NEGATIVE FOR FLU A AND B ANTIGEN.... Complete 09/15/17 17:15 Urine Random Urine Legionella Antigen - Final PRESUMPTIVE NEGATIVE FOR LEGIONELLA P... Complete 09/15/17 17:15 Urine Random Urine Streptococcus pneumoniae Antigen (M - Final PRESUMPTIVE NEGATIVE FOR STREPTOCOCCU... Complete Imaging Last Impressions Abdomen/Pelvis CT 09/18/17 0000 Signed Impressions: Service Date/Time: September 18:23 - CONCLUSION: 1. Colitis suspected in the proper clinical setting, most likely infectious or inflammatory. C. difficile colitis should be included in the differential. 2. Mildly prominent distal common bile duct and with some focal thickening of the third portion of the duodenum. Duodenal or ampullary mass not excludable. Direct visualization with EGD and ERCP suggested. 3. Severe and diffuse fatty infiltration of the liver. No focal hepatic lesion. 4. Small ascites, right greater than left pleural effusions and diffuse body wall edema/anasarca. Marlon Nascimento MD Chest X-Ray 09/17/17 0000 Signed Impressions: Service Date/Time: Sunday, September 17, 2017 15:22 - CONCLUSION: Mild perihilar infiltrates. Small bilateral pleural effusions. Degenerative changes and scoliosis of the thoracolumbar spine. Javier Adam MD Lower Extremity Ultrasound 09/12/17 0000 Signed Impressions: Service Date/Time: Tuesday, September 12, 2017 11:23 - CONCLUSION: 1. No sonographic evidence for lower extremity DVT. Brian De Souza MD Liver Ultrasound 09/12/17 0000 Signed Impressions: Service Date/Time: Tuesday, September 12, 2017 18:26 - CONCLUSION: Enlarged fatty liver. Bilateral pleural effusions. Javier Adam MD Physical Exam HEENT: Normocephalic; atraumatic CHEST: Even/unlabored CARDIAC: RRR ABDOMEN: Soft, nondistended, nontender; bowel sounds active EXTREMITIES: No clubbing, cyanosis, or edema. SKIN: Normal; no rash; no jaundice. IN[employer]: No focal deficits; alert and oriented times three. (Alexsandra Sinclair) Assessment and Plan Plan Assessment: Pt is poor historian - Dysphagia- Pt reports dysphagia that began prior to admission with associated decreased appetite. She attributes it to overall not feeling well. Denies odynophagia. Reports improvement in swallowing today and denies any difficulty. Previously with both liquids and solids. Last EGD 3-4 years ago in [place] and states normal exam. Denies acid reflux, heartburn. Of note, takes Goody Powder daily at home. Also previous PPD smoker but has decreased smoking to 3 cigarettes per day over the past month and a half - Weight loss, unintentional- Pt is unsure how much weight she has lost and over what period of time. Decreased appetite. Denies family history of cancer. Last colonoscopy 3-4 years ago in [place] and states normal exam. - Elevated LFTs- likely secondary to ETOH- improving since admission. US liver (09/12) --> Enlarged fatty liver. Hepatitis panel negative. - Coagulopathy- INR 6.6. on arrival, not on blood thinners, now corrected. ? related to liver disease - Abdominal cramping/pain- Diffuse, states started at the same time diarrhea began. - Diarrhea- C. diff positive, Epid negative. Currently on oral Vanco, was previously on Dificid which has since been discontinued due to pts complaints of nausea. Denies continued nausea. BMs have decrease, now 3 BMs a day. Denies BRB in stool. - Pneumonia- per attending. Currently on 2 L humidified O2 via [place]. Azithromycin (09/19) Pt S/P CT abdomen and pelvis W IV contrast yesterday --> Colitis suspected in the proper clinical setting, most likely infectious or inflammatory. Mildly prominent distal common bile duct and with some focal thickening of the third portion of the duodenum. Duodenal or ampullary mass not excludable. Direct visualization with EGD and ERCP suggested. Severe and diffuse fatty infiltration of the liver. No focal hepatic lesion. Small ascites, right greater than left pleural effusions and diffuse body wall edema/anasarca. Pt remains on Vanco and Mesalamine. She is now agreeable to EGD with ERCP to be done on Friday. Does not think she could tolerate prep for colonoscopy due to weakness. Will also order tumor markers. LFTs continue to improve, labs from today pending. Liver work up pending. Hepatitis panel negative. Iron-58 TIBC-113 %sat 51.1 Ferritin-514. Plan: EGD with ERCP on Friday Monitor LFTs Liver work up pending Tumor markers Soft diet Continue Mesalamine Continue oral Vanco Monitor stool count Further recommendations to follow based on results of above Pt has been seen and examined by myself and Dr. Acosta and this note is written on her behalf (Alexsandra Sinclair) Physician Comments seen, examined agree with above (Aixa Acosta MD) Alexsandra Sinclair Sep 19, 2017 11:23 Aixa Acosta MD Sep 19, 2017 19:20
[2017-09-19 11:41] LABS: BICARBONATE 30.4 MEQ/L (21.0-32.0); CALCIUM 7.6 MG/DL (8.5-10.1); CREATININE 0.16 MG/DL (0.50-1.00); MAGNESIUM 1.6 MG/DL (1.5-2.5)
--- NOTE | 2017-09-19 12:13 | HHI.PR ---
Subjective Remarks Follow-up diarrhea. States she is getting better with less diarrhea. Denies abdominal pain. Discussed with nursing and GI Objective Vitals Vital Signs Date Time Temp Pulse Resp B/P (MAP) Pulse Ox O2 Delivery O2 Flow Rate FiO2 09/19/17 11:36 98.8 80 20 95/53 (67) 99 09/19/17 08:00 98.6 81 20 117/59 (78) 97 09/19/17 04:00 80 09/19/17 04:00 98.6 92 21 92/54 (67) 95 09/19/17 00:00 Nasal Cannula 3.00 09/19/17 00:00 98.4 89 19 102/56 (71) 97 09/18/17 23:50 82 09/18/17 20:00 86 09/18/17 20:00 97.7 92 18 109/63 (78) 89 09/18/17 19:00 Nasal Cannula 3.00 09/18/17 16:00 97.7 101 18 97/62 (74) 94 I/O 09/18/17 09/18/17 09/18/17 09/19/17 09/19/17 09/19/17 07:00 15:00 23:00 07:00 15:00 23:00 Intake Total 1700 ml 600 ml 400 ml Output Total 500 ml 1100 ml Balance 1700 ml 100 ml -700 ml Intake Oral 500 ml 600 ml 400 ml IV Total 1200 ml Output Urine Total 500 ml 1100 ml # Voids 1 # Bowel Movements 1 2 2 Result Diagram: 09/18/17 0816 09/19/17 1055 Objective Remarks GENERAL: This is a frail elderly lady in no apparent distress. HEENT: Normocephalic, atraumatic. CARDIOVASCULAR: Regular rate and rhythm without murmurs, gallops, or rubs. RESPIRATORY: Fair air entry bilaterally. No wheezes, rales, or rhonchi. GASTROINTESTINAL: Abdomen soft, non-tender, nondistended. Normal active bowel sounds MUSCULOSKELETAL: Extremities without clubbing, cyanosis, or edema. NEURO: Alert and oriented. Moves all ext x4. Generalized weakness. PSYCH: Mood and affect appropriate. Procedures none A/P Problem List: (1) C. difficile diarrhea ICD Code: A04.72 - Enterocolitis due to Clostridium difficile, not specified as recurrent (2) Pneumonia ICD Code: J18.9 - Pneumonia, unspecified organism Assessment and Plan Community acquired pneumonia. Stable. Repeat pro calcitonin within normal limits. Continue Zithromax thru 09/21 and discontinue cefepime because of C. difficile Severe C diff infection. Improving. Continue po vancomycin and Asacol and monitor response. IV Flagyl and dificid discontinued Dehydration with electrolyte derangements. Improving discontinue IV hydration ( secondary to anasarca) and replace electrolytes aggressively. Elevated LFTs 2/2 sepsis and fatty liver. Hep screen negative. HIV negative. US with enlarged fatty liver. Abnormal CT showing prominent CBD for EGD and ERCP . Will request GI to perform endoscopy earlier if possible. Also has dysphagia. Patient states she cannot tolerate prep for colonoscopy. INR 6.6 on admission. Not on Coumadin. Has elevated LFTs, may be s/t liver disease. Albumin level is low. She has a history of alcohol abuse. Workup underway including tumor markers Anasarca likely secondary to low albumin. Check BMP if not elevated we will start IV albumin. Discontinue IV hydration as patient would improve and diarrhea low folate level. Likely secondary to nutritional deficiency. Continue folate supplement. PPx: SCDs. Hold pharmacological proph 2/2 thrombocytopenia (likely secondary to infection) Discharge Planning Rehabilitation when medically stable Ayaz Lopez MD Sep 19, 2017 12:12
[2017-09-19] MEDS ORDERED: VANCOMYCIN ORAL SOLUTION 25MG/ML PO SCH (13:00)
[2017-09-19] MEDS: VANCOMYCIN 25 MG/ML SUSP 100 ML BOTTLE PO SCH ×3 (14:46→22:40)
[2017-09-19 15:27] LABS: CARCINOEMBRYONIC ANTIGEN 27.7 NG/ML (0.2-5.0)
[2017-09-19 18:04] LABS: CA 19-9 LESS THAN 1.2 U/ML (0.0-35.0)
[2017-09-20] VITALS (9 sets, daily range): BP systolic 102–120; BP diastolic 57–83; PULSE 74–102; RESP 16–19; TEMP 97.5–98.7; O2SAT 19–98
[2017-09-20] MEDS: MESALAMINE HD 800 MG DELAYED RELEASE TAB PO SCH ×3 (05:20→22:00)
--- NOTE | 2017-09-20 09:01 | HHI.GIFU ---
Subjective Remarks Pt resting in bed, reports a sore throat today. Still not much of an appetite. Diarrhea. Denies abdominal pain. (Alexsandra Sinclair) Objective Vitals I&O Vital Signs Date Time Temp Pulse Resp B/P (MAP) Pulse Ox O2 Delivery O2 Flow Rate FiO2 09/20/17 04:32 97 Nasal Cannula 3.00 09/20/17 03:58 74 09/20/17 00:00 98.0 95 17 111/60 (77) 97 09/19/17 23:41 95 09/19/17 20:09 82 09/19/17 20:00 98.5 93 17 99/50 (66) 96 09/19/17 19:00 Nasal Cannula 3.00 09/19/17 17:30 92 Nasal Cannula 3.00 09/19/17 16:00 97.5 62 18 117/64 (81) 92 09/19/17 15:29 98 09/19/17 11:36 98.8 80 20 95/53 (67) 99 09/19/17 11:31 82 I/O 09/19/17 09/19/17 09/19/17 09/20/17 09/20/17 09/20/17 06:59 14:59 22:59 06:59 14:59 22:59 Intake Total 400 ml 240 ml 480 ml Output Total 1100 ml 550 ml 1200 ml Balance -700 ml -310 ml -720 ml Intake Oral 400 ml 240 ml 480 ml Output Urine Total 1100 ml 550 ml 1200 ml # Bowel Movements 2 1 Laboratory Laboratory Tests Test 09/19/17 10:55 09/19/17 14:17 Blood Urea Nitrogen 1 Creatinine 0.16 Random Glucose 113 Calcium Level 7.6 Magnesium Level 1.6 Sodium Level 135 Potassium Level 3.9 Chloride Level 99 Carbon Dioxide Level 30.4 Anion Gap 6 Estimat Glomerular Filtration Rate 460 B-Type Natriuretic Peptide 166 Lipase 149 Tumor Marker Alpha Fetoprotein 8.0 Carcinoembryonic Antigen 27.7 CA 19-9 Antigen LESS THAN 1.2 Date/Time Source Procedure Growth Status 09/11/17 13:30 Blood Peripheral Aerobic Blood Culture - Final NO GROWTH IN 5 DAYS Complete 09/11/17 13:30 Blood Peripheral Anaerobic Blood Culture - Final NO GROWTH IN 5 DAYS Complete 09/15/17 17:15 Nasal Aspirate Influenza Types A,B Antigen (CHARMAINE) - Final NEGATIVE FOR FLU A AND B ANTIGEN.... Complete 09/15/17 17:15 Urine Random Urine Legionella Antigen - Final PRESUMPTIVE NEGATIVE FOR LEGIONELLA P... Complete 09/15/17 17:15 Urine Random Urine Streptococcus pneumoniae Antigen (M - Final PRESUMPTIVE NEGATIVE FOR STREPTOCOCCU... Complete Imaging Last Impressions Abdomen/Pelvis CT 09/18/17 0000 Signed Impressions: Service Date/Time: September 18:23 - CONCLUSION: 1. Colitis suspected in the proper clinical setting, most likely infectious or inflammatory. C. difficile colitis should be included in the differential. 2. Mildly prominent distal common bile duct and with some focal thickening of the third portion of the duodenum. Duodenal or ampullary mass not excludable. Direct visualization with EGD and ERCP suggested. 3. Severe and diffuse fatty infiltration of the liver. No focal hepatic lesion. 4. Small ascites, right greater than left pleural effusions and diffuse body wall edema/anasarca. Marlon Nascimento MD Chest X-Ray 09/17/17 0000 Signed Impressions: Service Date/Time: Sunday, September 17, 2017 15:22 - CONCLUSION: Mild perihilar infiltrates. Small bilateral pleural effusions. Degenerative changes and scoliosis of the thoracolumbar spine. Javier Adam MD Lower Extremity Ultrasound 09/12/17 0000 Signed Impressions: Service Date/Time: Tuesday, September 12, 2017 11:23 - CONCLUSION: 1. No sonographic evidence for lower extremity DVT. Brian De Souza MD Liver Ultrasound 09/12/17 0000 Signed Impressions: Service Date/Time: Tuesday, September 12, 2017 18:26 - CONCLUSION: Enlarged fatty liver. Bilateral pleural effusions. Javier Adam MD Physical Exam HEENT: Normocephalic; atraumatic CHEST: Even/unlabored CARDIAC: RRR ABDOMEN: Soft, nondistended, nontender; bowel sounds active EXTREMITIES: No clubbing, cyanosis, or edema. SKIN: Normal; no rash; no jaundice. [employer]: No focal deficits; alert and oriented times three. (Alexsandra Sinclair) Assessment and Plan Plan Assessment: Pt is poor historian - Dysphagia- Pt reports dysphagia that began prior to admission with associated decreased appetite. She attributes it to overall not feeling well. Denies odynophagia. Reports improvement in swallowing today and denies any difficulty. Previously with both liquids and solids. Last EGD 3-4 years ago in [place] and states normal exam. Denies acid reflux, heartburn. Of note, takes Goody Powder daily at home. Also previous PPD smoker but has decreased smoking to 3 cigarettes per day over the past month and a half - Weight loss, unintentional- Pt is unsure how much weight she has lost and over what period of time. Decreased appetite. Denies family history of cancer. Last colonoscopy 3-4 years ago in [place] and states normal exam. - Elevated LFTs- likely secondary to ETOH- improving since admission. US liver (09/12) --> Enlarged fatty liver. Hepatitis panel negative. - Coagulopathy- INR 6.6. on arrival, not on blood thinners, now corrected. ? related to liver disease - Abdominal cramping/pain- Diffuse, states started at the same time diarrhea began. - Diarrhea- C. diff positive, Epid negative. Currently on oral Vanco, was previously on Dificid which has since been discontinued due to pts complaints of nausea. Denies continued nausea. BMs have decrease, now 3 BMs a day. Denies BRB in stool. - Pneumonia- per attending. Currently on 2 L humidified O2 via [place]. Azithromycin (09/19) Pt S/P CT abdomen and pelvis W IV contrast yesterday --> Colitis suspected in the proper clinical setting, most likely infectious or inflammatory. Mildly prominent distal common bile duct and with some focal thickening of the third portion of the duodenum. Duodenal or ampullary mass not excludable. Direct visualization with EGD and ERCP suggested. Severe and diffuse fatty infiltration of the liver. No focal hepatic lesion. Small ascites, right greater than left pleural effusions and diffuse body wall edema/anasarca. Pt remains on Vanco and Mesalamine. She is now agreeable to EGD with ERCP to be done on Friday. Does not think she could tolerate prep for colonoscopy due to weakness. Will also order tumor markers. LFTs continue to improve, labs from today pending. Liver work up pending. Hepatitis panel negative. Iron-58 TIBC-113 %sat 51.1 Ferritin-514. (09/20) --> Pt with continued weakness today, only took a few bites of her breakfast. Diarrhea (+) C. Diff. On oral Vanco. Refusing rectal Mesalamine. Rest of liver CHAMBERLAIN still pending. Tumor markers as follows: AFP-8 CEA-27.7 CA 19-9 <1.2. Plan remains to do EGD on Friday, EUS vs ERCP. Plan: EGD with ERCP vs EUS on Friday Monitor LFTs Liver work up pending Soft diet Continue Mesalamine Continue oral Vanco Monitor stool count Further recommendations to follow based on results of above Pt has been seen and examined by myself and Dr. Ramirez and this note is written on his behalf (Alexsandra Sinclair) Plan Patient was seen and examined, agree with above-noted, possible ERCP and EUS on Friday patient agreeable with the plan signed consent (Morenita Fritz MD) Alexsandra Sinclair Sep 20, 2017 09:01 Morenita Fritz MD Sep 20, 2017 16:33
[2017-09-20] MEDS: VANCOMYCIN 25 MG/ML SUSP 100 ML BOTTLE PO SCH ×4 (09:20→22:33)
[2017-09-20] MEDS: POTASSIUM CHLORIDE 20 MEQ CONTROLLED RELEASE TAB PO SCH ×2 (09:21→22:36)
[2017-09-20] MEDS: MEGESTROL ACETATE 40 MG TAB PO SCH ×2 (09:21→22:35)
[2017-09-20] MEDS: FOLIC ACID 1 MG TAB PO SCH (09:21)
[2017-09-20] MEDS: AZITHROMYCIN 250 MG TAB PO SCH (09:21)
[2017-09-20] MEDS: SODIUM CHLORIDE 0.9% FLUSH 10 ML FLUSH IV FLUSH SCH ×2 (09:22→22:37)
[2017-09-20] MEDS: CALCIUM CARBONATE 1.25 GM (CA 500 MG) TAB PO SCH (09:22)
[2017-09-20 10:26] LABS: HEMATOCRIT 22.9 % (35.0-46.0); MEAN CELL VOLUME 108.3 FL (80.0-100.0); MEAN CORPUSCULAR HEMOGLOBIN 37.8 PG (27.0-34.0); MEAN CORPUSCULAR HGB CONC 34.9 % (32.0-36.0); MEAN PLATELET VOLUME 9.1 FL (7.0-11.0); PLATELET COUNT 148 TH/MM3 (150-450); RED BLOOD COUNT 2.11 MIL/MM3 (4.00-5.30); RED CELL DISTRIBUTION WIDTH 19.9 % (11.6-17.2); WHITE BLOOD COUNT 4.1 TH/MM3 (4.0-11.0)
[2017-09-20 10:58] LABS: LYMPHOCYTES 20 % (9-44); METAMYELOCYTES 2 % (0-1); MONOCYTES 18 % (0-8); MYELOCYTES 2 % (0-0); NEUTROPHIL # MANUAL DIFF 2.5 TH/MM3 (1.8-7.7); POLYS (SEG NEUTROPHILS) 58 % (16-70)
[2017-09-20 10:59] LABS: HOWELL-JOLLY BODIES PRESENT (NONE SEEN)
[2017-09-20 11:00] LABS: BICARBONATE 34.6 MEQ/L (21.0-32.0); BLOOD UREA NITROGEN 2 MG/DL (7-18); CHLORIDE 97 MEQ/L (98-107); CREATININE LESS THAN 0.15 MG/DL (0.50-1.00); GLOMERULAR FILTRATION RATE 495 ML/MIN (>89); GLUCOSE,RANDOM 95 MG/DL (74-106); MAGNESIUM 1.6 MG/DL (1.5-2.5); SODIUM (NA) 135 MEQ/L (136-145)
[2017-09-20 11:47] LABS: ALBUMIN 1.7 GM/DL (3.4-5.0); DIRECT BILIRUBIN ADULT 0.6 MG/DL (0.0-0.2)
[2017-09-20 11:49] LABS: INDIRECT BILIRUBIN 0.5 MG/DL (0.0-0.8); TOTAL BILIRUBIN ADULT 1.1 MG/DL (0.2-1.0); TOTAL PROTEIN 4.7 GM/DL (6.4-8.2)
[2017-09-20] MEDS ORDERED: POTASSIUM CHLORIDE INJ 30 MEQ in DEXT 5%-NACL 0.9% 1000 ML INJ 1,000 ML IV PRN (13:00)
[2017-09-20 14:10] LABS: SMOOTH MUSCLE TOTAL AUTOABS Negative (Negative)
[2017-09-20] MEDS ORDERED: ENOXAPARIN SODIUM 40 MG/0.4 ML SYRINGE SQ ONE (15:00)
--- NOTE | 2017-09-20 15:05 | HHI.PR ---
Subjective Remarks Follow-up C. difficile and pneumonia. Improving diarrhea states stools are less frequent and forming up. Denies abdominal pain. Also improving nausea. Patient wants to get out of bed and use the walker. Discussed with nursing Objective Vitals Vital Signs Date Time Temp Pulse Resp B/P (MAP) Pulse Ox O2 Delivery O2 Flow Rate FiO2 09/20/17 12:00 97.9 76 19 116/65 (82) 98 09/20/17 08:00 98.7 94 19 120/83 (95) 19 09/20/17 04:32 97 Nasal Cannula 3.00 09/20/17 03:58 74 09/20/17 00:00 98.0 95 17 111/60 (77) 97 09/19/17 23:41 95 09/19/17 20:09 82 09/19/17 20:00 98.5 93 17 99/50 (66) 96 09/19/17 19:00 Nasal Cannula 3.00 09/19/17 17:30 92 Nasal Cannula 3.00 09/19/17 16:00 97.5 62 18 117/64 (81) 92 09/19/17 15:29 98 I/O 09/19/17 09/19/17 09/19/17 09/20/17 09/20/17 09/20/17 07:00 15:00 23:00 07:00 15:00 23:00 Intake Total 400 ml 240 ml 480 ml Output Total 1100 ml 550 ml 1200 ml Balance -700 ml -310 ml -720 ml Intake Oral 400 ml 240 ml 480 ml Output Urine Total 1100 ml 550 ml 1200 ml # Bowel Movements 2 1 Result Diagram: 09/20/17 1002 09/20/17 1002 Objective Remarks GENERAL: This is a frail elderly lady in no apparent distress. HEENT: Normocephalic, atraumatic. CARDIOVASCULAR: Regular rate and rhythm without murmurs, gallops, or rubs. RESPIRATORY: Fair air entry bilaterally. No wheezes, rales, or rhonchi. GASTROINTESTINAL: Abdomen soft, non-tender, nondistended. Normal active bowel sounds MUSCULOSKELETAL: Extremities without clubbing, cyanosis but with bilateral lower extremity pitting edema. NEURO: Alert and oriented. Moves all ext x4. Generalized weakness. PSYCH: Mood and affect appropriate. Procedures none A/P Problem List: (1) C. difficile diarrhea ICD Code: A04.72 - Enterocolitis due to Clostridium difficile, not specified as recurrent (2) Pneumonia ICD Code: J18.9 - Pneumonia, unspecified organism Assessment and Plan Community acquired pneumonia. Stable. Repeat pro calcitonin within normal limits. Continue Zithromax thru 09/21 and discontinue cefepime because of C. difficile Severe C diff infection. Improving. Strict I/O. Continue po vancomycin and Asacol and monitor response. IV Flagyl and dificid discontinued Dehydration with electrolyte derangements. Improving discontinue IV hydration ( secondary to anasarca) and replace electrolytes aggressively. Elevated LFTs 09/12 sepsis and fatty liver. Hep screen negative. HIV negative. Elevated CEA normal AFP and CA-19-9. US with enlarged fatty liver. Abnormal CT showing prominent CBD for EGD and ERCP 09/22. Also has dysphagia. Patient states she cannot tolerate prep for colonoscopy. Anasarca likely secondary to low albumin. Maintaining negative fluid balance. Unable to diurese secondary to ongoing diarrhea. Elevated BNP will check echocardiogram. Consider IV albumin. Continue Ensure low folate level. Likely secondary to nutritional deficiency. Continue folate supplement. Thrombocytopenia which is improving, likely secondary to infection. PPx: SCDs. Lovenox 1 for EGD on Friday Discharge Planning Rehabilitation when medically stable Ayaz Lopez MD Sep 20, 2017 15:05
[2017-09-20 15:33] LABS: ALPHA-1-ANTITRYPSIN 191 mg/dL (100 - 190)
[2017-09-21] VITALS (9 sets, daily range): BP systolic 104–129; BP diastolic 53–74; PULSE 74–92; RESP 16–20; TEMP 97.4–98; O2SAT 94–100
[2017-09-21] MEDS: MESALAMINE HD 800 MG DELAYED RELEASE TAB PO SCH ×3 (05:02→22:18)
[2017-09-21 09:18] LABS: AUTOMATED NEUTROPHIL # 2.4 TH/MM3 (1.8-7.7); BASOPHIL # 0.1 TH/MM3 (0-0.2); BASOPHIL % 1.3 % (0.0-2.0); EOSINOPHIL % 0.9 % (0.0-4.0); HEMATOCRIT 24.8 % (35.0-46.0); HEMOGLOBIN 8.4 GM/DL (11.6-15.3); LYMPH % 22.4 % (9.0-44.0); LYMPHOCYTE # 0.9 TH/MM3 (1.0-4.8); MEAN CELL VOLUME 109.5 FL (80.0-100.0); MEAN CORPUSCULAR HEMOGLOBIN 37.2 PG (27.0-34.0); MEAN PLATELET VOLUME 9.1 FL (7.0-11.0); MONO % 15.7 % (0.0-8.0); MONOCYTE # 0.6 TH/MM3 (0-0.9); NEUT % 59.7 % (16.0-70.0); PLATELET COUNT 174 TH/MM3 (150-450); RED BLOOD COUNT 2.26 MIL/MM3 (4.00-5.30); RED CELL DISTRIBUTION WIDTH 20.3 % (11.6-17.2)
[2017-09-21 09:34] LABS: BICARBONATE 34.1 MEQ/L (21.0-32.0); CALCIUM 8.4 MG/DL (8.5-10.1); CREATININE 0.19 MG/DL (0.50-1.00); MAGNESIUM 1.8 MG/DL (1.5-2.5)
[2017-09-21] MEDS: POTASSIUM CHLORIDE 20 MEQ CONTROLLED RELEASE TAB PO SCH ×2 (09:41→22:18)
[2017-09-21] MEDS: CALCIUM CARBONATE 1.25 GM (CA 500 MG) TAB PO SCH (09:41)
[2017-09-21] MEDS: FOLIC ACID 1 MG TAB PO SCH (09:41)
[2017-09-21] MEDS: MEGESTROL ACETATE 40 MG TAB PO SCH ×2 (09:41→22:17)
[2017-09-21] MEDS: VANCOMYCIN 25 MG/ML SUSP 100 ML BOTTLE PO SCH ×4 (09:42→22:18)
[2017-09-21] MEDS: SODIUM CHLORIDE 0.9% FLUSH 10 ML FLUSH IV FLUSH SCH ×2 (09:44→21:00)
[2017-09-21 10:18] LABS: BANDS 1 % (0-6); BASOPHILS 1 % (0-2); CORRECTED NUCLEATED RBC 1 /100 WBC (0-0); LYMPHOCYTES 22 % (9-44); METAMYELOCYTES 2 % (0-1); MONOCYTES 14 % (0-8); MYELOCYTES 2 % (0-0); NEUTROPHIL # MANUAL DIFF 2.5 TH/MM3 (1.8-7.7); NUCLEATED RED BLOOD CELL 1 (0-0); POLYS (SEG NEUTROPHILS) 57 % (16-70); PROMYELOCYTES 1 % (0-0)
[2017-09-21 10:19] LABS: POLYCHROMASIA 2.1 % (0.0-1.9)
[2017-09-21] MEDS ORDERED: NS + KCL 20 MEQ INJ 1,000 ML IV SCH (14:30)
--- NOTE | 2017-09-21 14:40 | HHI.PR ---
Subjective Remarks Follow-up C. difficile. Patient reports her diarrhea is worse today. Denies nausea and abdominal pain. Feels he should be hydrated. Also complains of exertional retrosternal pressure associated with dyspnea and dizziness for the past 4 weeks. Patient had abnormal stress test 4 years ago and underwent negative cardiac catheterization in [place] Objective Vitals Vital Signs Date Time Temp Pulse Resp B/P (MAP) Pulse Ox O2 Delivery O2 Flow Rate FiO2 09/21/17 08:00 97.7 90 18 120/60 (80) 97 09/21/17 08:00 Nasal Cannula 3.00 09/21/17 04:00 97.8 74 16 117/53 (74) 94 09/21/17 03:45 81 09/21/17 00:00 97.6 81 16 129/59 (82) 100 09/20/17 23:42 81 09/20/17 22:21 Nasal Cannula 3.00 09/20/17 20:00 97.5 92 16 102/57 (72) 96 09/20/17 20:00 Nasal Cannula 3.00 09/20/17 19:48 85 I/O 09/20/17 09/20/17 09/20/17 09/21/17 09/21/17 09/21/17 07:00 15:00 23:00 07:00 15:00 23:00 Intake Total 480 ml 1200 ml 240 ml Output Total 1200 ml 900 ml Balance -720 ml 1200 ml -660 ml Intake Oral 480 ml 1200 ml 240 ml Output Urine Total 1200 ml 900 ml # Voids 7 # Bowel Movements 1 5 5 Result Diagram: 09/21/17 0839 09/21/17 0839 Imaging Last Impressions Abdomen/Pelvis CT 09/18/17 0000 Signed Impressions: Service Date/Time: September 18:23 - CONCLUSION: 1. Colitis suspected in the proper clinical setting, most likely infectious or inflammatory. C. difficile colitis should be included in the differential. 2. Mildly prominent distal common bile duct and with some focal thickening of the third portion of the duodenum. Duodenal or ampullary mass not excludable. Direct visualization with EGD and ERCP suggested. 3. Severe and diffuse fatty infiltration of the liver. No focal hepatic lesion. 4. Small ascites, right greater than left pleural effusions and diffuse body wall edema/anasarca. Marlon Nascimento MD Chest X-Ray 09/17/17 0000 Signed Impressions: Service Date/Time: Sunday, September 17, 2017 15:22 - CONCLUSION: Mild perihilar infiltrates. Small bilateral pleural effusions. Degenerative changes and scoliosis of the thoracolumbar spine. Javier Adam MD Lower Extremity Ultrasound 09/12/17 0000 Signed Impressions: Service Date/Time: Tuesday, September 12, 2017 11:23 - CONCLUSION: 1. No sonographic evidence for lower extremity DVT. Brian De Souza MD Liver Ultrasound 09/12/17 0000 Signed Impressions: Service Date/Time: Tuesday, September 12, 2017 18:26 - CONCLUSION: Enlarged fatty liver. Bilateral pleural effusions. Javier Adam MD Objective Remarks GENERAL: This is a frail elderly lady in no apparent distress. HEENT: Normocephalic, atraumatic. CARDIOVASCULAR: Regular rate and rhythm without murmurs, gallops, or rubs. RESPIRATORY: Fair air entry bilaterally. No wheezes, rales, or rhonchi. GASTROINTESTINAL: Abdomen soft, non-tender, nondistended. Normal active bowel sounds MUSCULOSKELETAL: Extremities without clubbing, cyanosis but with bilateral lower extremity pitting edema. NEURO: Alert and oriented. Moves all ext x4. Generalized weakness. PSYCH: Mood and affect appropriate. Procedures none A/P Problem List: (1) C. difficile diarrhea ICD Code: A04.72 - Enterocolitis due to Clostridium difficile, not specified as recurrent (2) Pneumonia ICD Code: J18.9 - Pneumonia, unspecified organism Assessment and Plan Community acquired pneumonia. Stable. Repeat pro calcitonin within normal limits. Continue Zithromax thru 09/21 today and discontinue cefepime because of C. difficile Severe C diff infection. Still with loose stools. Strict I/O. Continue po vancomycin and Asacol and restart IV fluids for 1 L. IV Flagyl and dificid discontinued Dehydration with electrolyte derangements. As mentioned gentle IV hydration ( secondary to anasarca) and replace electrolytes aggressively. Elevated LFTs 2/ sepsis and fatty liver. Hep screen negative. HIV negative. Elevated CEA normal AFP and CA-19-9. US with enlarged fatty liver. Abnormal CT showing prominent CBD for EGD and ERCP 09/22. Also has dysphagia. Consider PPI. Patient states she cannot tolerate prep for colonoscopy. Anasarca likely secondary to low albumin. Maintaining negative fluid balance. Unable to diurese secondary to ongoing diarrhea. Elevated BNP will check echocardiogram. Consider IV albumin. Continue Ensure low folate level. Likely secondary to nutritional deficiency. Continue folate supplement. Thrombocytopenia which is resolving likely secondary to infection. Exertional chest pain with shortness of breath and dizziness. EKG with poor R- wave progression. CK troponin 1 negative. Nuclear stress test prior to EGD discussed with GI DISPATCHER RELAY PPx: SCDs. Lovenox 1 for possible EGD on Friday Discharge Planning Rehabilitation when medically stable Ayaz Lopez MD Sep 21, 2017 14:40
--- NOTE | 2017-09-21 15:08 | HHI.GIFU ---
Subjective Remarks Pt sitting on side of bed, ate a little bit of broth for lunch. She is mostly concerned about her breathing today. Spoke with Dr. Lopez who is ordering stress test. (Alexsandra Sinclair) Objective Vitals I&O Vital Signs Date Time Temp Pulse Resp B/P (MAP) Pulse Ox O2 Delivery O2 Flow Rate FiO2 09/21/17 08:00 97.7 90 18 120/60 (80) 97 09/21/17 08:00 Nasal Cannula 3.00 09/21/17 04:00 97.8 74 16 117/53 (74) 94 09/21/17 03:45 81 09/21/17 00:00 97.6 81 16 129/59 (82) 100 09/20/17 23:42 81 09/20/17 22:21 Nasal Cannula 3.00 09/20/17 20:00 97.5 92 16 102/57 (72) 96 09/20/17 20:00 Nasal Cannula 3.00 09/20/17 19:48 85 I/O 09/20/17 09/20/17 09/20/17 09/21/17 09/21/17 09/21/17 07:00 15:00 23:00 07:00 15:00 23:00 Intake Total 480 ml 1200 ml 240 ml Output Total 1200 ml 900 ml Balance -720 ml 1200 ml -660 ml Intake Oral 480 ml 1200 ml 240 ml Output Urine Total 1200 ml 900 ml # Voids 7 # Bowel Movements 1 5 5 Laboratory Laboratory Tests Test 09/21/17 08:39 White Blood Count 4.0 Red Blood Count 2.26 Hemoglobin 8.4 Hematocrit 24.8 Mean Corpuscular Volume 109.5 Mean Corpuscular Hemoglobin 37.2 Mean Corpuscular Hemoglobin Concent 34.0 Red Cell Distribution Width 20.3 Platelet Count 174 Mean Platelet Volume 9.1 Neutrophils (%) (Auto) 59.7 Lymphocytes (%) (Auto) 22.4 Monocytes (%) (Auto) 15.7 Eosinophils (%) (Auto) 0.9 Basophils (%) (Auto) 1.3 Neutrophils # (Auto) 2.4 Lymphocytes # (Auto) 0.9 Monocytes # (Auto) 0.6 Eosinophils # (Auto) 0.0 Basophils # (Auto) 0.1 CBC Comment AUTO DIFF Differential Total Cells Counted 100 Neutrophils % (Manual) 57 Band Neutrophils % 1 Lymphocytes % 22 Monocytes % 14 Basophils % 1 Neutrophils # (Manual) 2.5 Metamyelocytes 2 Myelocytes 2 Promyelocytes 1 Nucleated Red Blood Cells 1 Differential Comment FINAL DIFF MANUAL Platelet Estimate NORMAL Platelet Morphology Comment NORMAL Polychromasia 2.1 Basophilic Stippling FAINT Red Cell Morphology Comment Blood Urea Nitrogen 2 Creatinine 0.19 Random Glucose 82 Calcium Level 8.4 Magnesium Level 1.8 Sodium Level 134 Potassium Level 3.5 Chloride Level 95 Carbon Dioxide Level 34.1 Anion Gap 5 Estimat Glomerular Filtration Rate 377 Date/Time Source Procedure Growth Status 09/11/17 13:30 Blood Peripheral Aerobic Blood Culture - Final NO GROWTH IN 5 DAYS Complete 09/11/17 13:30 Blood Peripheral Anaerobic Blood Culture - Final NO GROWTH IN 5 DAYS Complete 09/15/17 17:15 Nasal Aspirate Influenza Types A,B Antigen (CHARMAINE) - Final NEGATIVE FOR FLU A AND B ANTIGEN.... Complete 09/15/17 17:15 Urine Random Urine Legionella Antigen - Final PRESUMPTIVE NEGATIVE FOR LEGIONELLA P... Complete 09/15/17 17:15 Urine Random Urine Streptococcus pneumoniae Antigen (M - Final PRESUMPTIVE NEGATIVE FOR STREPTOCOCCU... Complete Imaging Last Impressions Abdomen/Pelvis CT 09/18/17 0000 Signed Impressions: Service Date/Time: September 18:23 - CONCLUSION: 1. Colitis suspected in the proper clinical setting, most likely infectious or inflammatory. C. difficile colitis should be included in the differential. 2. Mildly prominent distal common bile duct and with some focal thickening of the third portion of the duodenum. Duodenal or ampullary mass not excludable. Direct visualization with EGD and ERCP suggested. 3. Severe and diffuse fatty infiltration of the liver. No focal hepatic lesion. 4. Small ascites, right greater than left pleural effusions and diffuse body wall edema/anasarca. Marlon Nascimento MD Chest X-Ray 09/17/17 0000 Signed Impressions: Service Date/Time: Sunday, September 17, 2017 15:22 - CONCLUSION: Mild perihilar infiltrates. Small bilateral pleural effusions. Degenerative changes and scoliosis of the thoracolumbar spine. Javier Adam MD Lower Extremity Ultrasound 09/12/17 0000 Signed Impressions: Service Date/Time: Tuesday, September 12, 2017 11:23 - CONCLUSION: 1. No sonographic evidence for lower extremity DVT. Brian De Souza MD Liver Ultrasound 09/12/17 0000 Signed Impressions: Service Date/Time: Tuesday, September 12, 2017 18:26 - CONCLUSION: Enlarged fatty liver. Bilateral pleural effusions. Javier Adam MD Physical Exam HEENT: Normocephalic; atraumatic CHEST: Tachypneic, diffuse wheezing, 2 L O2 via NC CARDIAC: RRR ABDOMEN: Soft, nondistended, nontender; bowel sounds active EXTREMITIES: No clubbing, cyanosis, or edema. SKIN: Normal; no rash; no jaundice. [employer]: No focal deficits; alert and oriented times three. (Alexsandra Sinclair [facility]) Assessment and Plan Plan Pt is poor historian - Dysphagia- Pt reports dysphagia that began prior to admission with associated decreased appetite. She attributes it to overall not feeling well. Denies odynophagia. Reports improvement in swallowing today and denies any difficulty. Previously with both liquids and solids. Last EGD 3-4 years ago in [place] and states normal exam. Denies acid reflux, heartburn. Of note, takes Goody Powder daily at home. Also previous PPD smoker but has decreased smoking to 3 cigarettes per day over the past month and a half - Weight loss, unintentional- Pt is unsure how much weight she has lost and over what period of time. Decreased appetite. Denies family history of cancer. Last colonoscopy 3-4 years ago in [place] and states normal exam. - Elevated LFTs- likely secondary to ETOH- improving since admission. US liver (09/12) --> Enlarged fatty liver. Hepatitis panel negative. - Coagulopathy- INR 6.6. on arrival, not on blood thinners, now corrected. ? related to liver disease - Abdominal cramping/pain- Diffuse, states started at the same time diarrhea began. - Diarrhea- C. diff positive, Epid negative. Currently on oral Vanco, was previously on Dificid which has since been discontinued due to pts complaints of nausea. Denies continued nausea. BMs have decrease, now 3 BMs a day. Denies BRB in stool. - Pneumonia- per attending. Currently on 2 L humidified O2 via NC. Azithromycin (09/19) Pt S/P CT abdomen and pelvis W IV contrast yesterday --> Colitis suspected in the proper clinical setting, most likely infectious or inflammatory. Mildly prominent distal common bile duct and with some focal thickening of the third portion of the duodenum. Duodenal or ampullary mass not excludable. Direct visualization with EGD and ERCP suggested. Severe and diffuse fatty infiltration of the liver. No focal hepatic lesion. Small ascites, right greater than left pleural effusions and diffuse body wall edema/anasarca. Pt remains on Vanco and Mesalamine. She is now agreeable to EGD with ERCP to be done on Friday. Does not think she could tolerate prep for colonoscopy due to weakness. Will also order tumor markers. LFTs continue to improve, labs from today pending. Liver work up pending. Hepatitis panel negative. Iron-58 TIBC-113 %sat 51.1 Ferritin-514. (09/20) --> Pt with continued weakness today, only took a few bites of her breakfast. Diarrhea (+) C. Diff. On oral Vanco. Refusing rectal Mesalamine. Rest of liver CHAMBERLAIN still pending. Tumor markers as follows: AFP-8 CEA-27.7 CA 19-9 <1.2. Plan remains to do EGD on Friday, EUS vs ERCP. (09/21) --> Pt with worsening of SOB today, evaluated by Dr. Lopez who is ordering a stress test. Will hold GI procedure until Friday, pending stress test result and respiratory status. AST and ALT now WNL, Alk phos remains elevated, will order iso-enzymes Plan: EGD with ERCP vs EUS after stress test-pending results Monitor LFTs Liver work up pending Alk phos iso-enzymes Soft diet Continue Mesalamine Continue oral Vanco Monitor stool count Further recommendations to follow based on results of above Pt has been seen and examined by myself and Dr. Ngo and this note is written on his behalf (Alexsandra Sinclair) Physician Comments patient seen and examined agree with above monitor labs continue present supportive care await stress test (Mehdi Ngo MD) Alexsandra Sinclair Sep 21, 2017 15:08 Mehdi Ngo MD Sep 21, 2017 22:01
[2017-09-21 17:51] LABS: CERULOPLASMIN 16 mg/dL (18-53)
[2017-09-22] VITALS (10 sets, daily range): BP systolic 91–117; BP diastolic 54–70; PULSE 74–83; RESP 16–20; TEMP 97.4–98.6; O2SAT 93–100
[2017-09-22 00:53] LABS: BILIRUBIN, URINE NEG (NEG); BLOOD, URINE NEG (NEG); GLUCOSE,URINE NEG (NEG); KETONE, URINE NEG (NEG); MUCUS URINE FEW /lpf (OCC); NITRITE,URINE NEG (NEG); SQUAMOUS EPITHELIAL CELL URINE 1 /hpf (0-5); URINE COLOR LIGHT-YELLOW (YELLW/STRAW); URINE LEUKOCYTE ESTERASE NEG (NEG)
[2017-09-22] MEDS: RESP: ALBUTEROL 2.5 MG/3 ML NEB (PRN) NEB (04:45)
[2017-09-22] MEDS: MESALAMINE HD 800 MG DELAYED RELEASE TAB PO SCH ×3 (05:21→22:06)
[2017-09-22 07:27] LABS: BICARBONATE 31.4 MEQ/L (21.0-32.0); BLOOD UREA NITROGEN 2 MG/DL (7-18); CALCIUM 8.3 MG/DL (8.5-10.1); CHLORIDE 97 MEQ/L (98-107); CREATININE LESS THAN 0.15 MG/DL (0.50-1.00); GLOMERULAR FILTRATION RATE 495 ML/MIN (>89); GLUCOSE,RANDOM 86 MG/DL (74-106); MAGNESIUM 1.7 MG/DL (1.5-2.5); SODIUM (NA) 134 MEQ/L (136-145)
[2017-09-22] MEDS: MEGESTROL ACETATE 40 MG TAB PO SCH ×2 (08:32→22:07)
[2017-09-22] MEDS: FOLIC ACID 1 MG TAB PO SCH (08:32)
[2017-09-22] MEDS: POTASSIUM CHLORIDE 20 MEQ CONTROLLED RELEASE TAB PO SCH ×2 (08:33→22:06)
[2017-09-22] MEDS: CALCIUM CARBONATE 1.25 GM (CA 500 MG) TAB PO SCH (08:33)
[2017-09-22] MEDS: SODIUM CHLORIDE 0.9% FLUSH 10 ML FLUSH IV FLUSH SCH ×2 (08:33→21:00)
[2017-09-22] MEDS: VANCOMYCIN 25 MG/ML SUSP 100 ML BOTTLE PO SCH ×4 (08:34→22:06)
--- NOTE | 2017-09-22 10:27 | HHI.DCPOC ---
Discharge Care Plan Diagnosis: (1) C. difficile diarrhea (2) Pneumonia Your Health Problems Are: Difficulty with ADL Exercise Tolerance Goals to Promote Your Health * To prevent worsening of your condition and complications * To maintain your health at the optimal level Directions to Meet Your Goals Take your medications as prescribed Follow your dietary instruction Follow activity as directed Keep your appointments as scheduled Take your immunizations and boosters as scheduled If your symptoms worsen call your PCP, if no PCP go to Urgent Care Center or Emergency Room Smoking is Dangerous to Your Health. Avoid second hand smoke Call the 24-hour hour crisis hotline for domestic abuse at Ayaz Lopez MD Sep 22, 2017 10:27
--- NOTE | 2017-09-22 10:27 | HHI.PR ---
Subjective Remarks Follow-up C. difficile and pneumonia. States she had no more bowel movement since I saw her yesterday. Denies abdominal pain. Still complaining of dyspnea on exertion denies chest pain. Pending stress test. States she does not want to do another procedure today is because with nurse Objective Vitals Vital Signs Date Time Temp Pulse Resp B/P (MAP) Pulse Ox O2 Delivery O2 Flow Rate FiO2 09/22/17 08:05 97.9 77 20 108/57 (74) 99 09/22/17 08:00 82 09/22/17 07:00 Nasal Cannula 3.00 09/22/17 04:00 97.9 80 20 99/69 (79) 97 09/22/17 03:47 74 09/22/17 02:09 93 Nasal Cannula 3.00 09/22/17 00:00 98.1 77 18 117/70 (86) 100 09/22/17 00:00 Nasal Cannula 3.00 09/21/17 23:47 81 09/21/17 20:00 97.8 92 20 125/74 (91) 100 09/21/17 20:00 Nasal Cannula 3.00 09/21/17 19:44 81 09/21/17 16:00 98.0 83 18 104/58 (73) 100 09/21/17 16:00 92 09/21/17 12:00 97.4 76 18 125/62 (83) 100 09/21/17 12:00 80 I/O 09/21/17 09/21/17 09/21/17 09/22/17 09/22/17 09/22/17 07:00 15:00 23:00 07:00 15:00 23:00 Intake Total 240 ml 480 ml 0 ml Output Total 900 ml 1400 ml Balance -660 ml -920 ml 0 ml Intake Oral 240 ml 480 ml 0 ml Output Urine Total 900 ml 1400 ml # Voids 8 # Bowel Movements 5 2 0 Result Diagram: 09/21/17 0839 09/22/17 0630 Objective Remarks GENERAL: This is a frail elderly lady in no apparent distress. No signs of dehydration HEENT: Normocephalic, atraumatic. CARDIOVASCULAR: Regular rate and rhythm without murmurs, gallops, or rubs. RESPIRATORY: Fair air entry bilaterally. No wheezes, rales, or rhonchi. GASTROINTESTINAL: Abdomen soft, non-tender, nondistended. Normal active bowel sounds MUSCULOSKELETAL: Extremities without clubbing, cyanosis but with bilateral lower extremity pitting edema. NEURO: Alert and oriented. Moves all ext x4. Generalized weakness. PSYCH: Mood and affect appropriate. Procedures none A/P Problem List: (1) C. difficile diarrhea ICD Code: A04.72 - Enterocolitis due to Clostridium difficile, not specified as recurrent (2) Pneumonia ICD Code: J18.9 - Pneumonia, unspecified organism Assessment and Plan Exertional chest pain with shortness of breath and dizziness. EKG with poor R- wave progression. CK troponin 1 negative. Nuclear stress test today prior to EGD discussed with GI [employer] Community acquired pneumonia. Stable. Repeat pro calcitonin within normal limits. Status post Zithromax and cefepime. Repeat chest x-ray in 6 to Severe C diff infection. Improving continue po vancomycin and Asacol and discontinue IV hydration. IV Flagyl and dificid also discontinued Dehydration with electrolyte derangements. Improved status post IV hydration ( secondary to anasarca) and replace electrolytes aggressively. Elevated LFTs 2/2 sepsis and fatty liver. Hep screen negative. HIV negative. Elevated CEA normal AFP and CA-19-9. US with enlarged fatty liver. Abnormal CT showing prominent CBD for EGD and ERCP 2/12 if stress test negative however patient wants to postpone it tomorrow. Also has dysphagia. Consider PPI. Patient states she cannot tolerate prep for colonoscopy. Anasarca likely secondary to low albumin. Maintaining negative fluid balance. Unable to diurese secondary to ongoing diarrhea. Elevated BNP will follow up echocardiogram. Consider IV albumin. Continue Ensure Low folate level. Likely secondary to nutritional deficiency. Continue folate supplement. Thrombocytopenia which is resolving likely secondary to infection. PPx: SCDs. Lovenox 1 for possible EGD on Friday Discharge Planning Rehabilitation when medically stable Ayaz Lopez MD Sep 22, 2017 10:27
[2017-09-22] MEDS ORDERED: REGADENOSON INJ 0.4 MG/5 ML SYR IV ONE (13:51)
--- NOTE | 2017-09-22 15:11 | RADRPT ---
EXAM DATE/TIME: 09/22/2017 12:16 [place] COMPARISON: No previous studies available for comparison. INDICATIONS : Retrosternal chest pain with dyspnea and dizziness. Angina. DOSE: 27.2 mCi Tc99m Myoview at stress. 8.1 mCi Tc99m Myoview at rest. 0.4 mg Lexiscan STRESS SYMPTOMS: Chest pain and lightheaded. EJECTION FRACTION: > 70% MEDICAL HISTORY : Chronic obstructive pulmonary disease. SURGICAL HISTORY : Tubal ligation. Left hip replacement. ENCOUNTER: Initial ACUITY: 1 month PAIN SCALE: 3/10 LOCATION: Retrosternal chest TECHNIQUE: The patient underwent pharmacologic stress with infusion of prescribed dose. Continuous ECG tracing was monitored during stress. Gated SPECT imaging was performed after stress and conventional SPECT i maging was performed at rest. The examination was performed on a SPECT/CT scanner, both attenuation and non-corrected datasets were reviewed. FINDINGS: There is a fixed defect in the anterior septal region. There is no distribution to suggest ischemia . Ejection fraction greater than 70% with minimal hypokinesis anterior septal region CONCLUSION: Negative for stress-induced ischemia Fixed defect in the anterior septal region. Correlation is suggested with the fixed defect. RISK CATEGORY: Low (<1% Annual Mortality Rate) Yehuda Alvarez MD FACR on September 22, 2017 at 15:07 Board Certified Radiologist. This report was verified electronically.
[2017-09-22 15:52] LABS: ENDOMYSIAL AB SCREEN ND (NEGATIVE); ENDOMYSIAL AB TITER ND (<1:5)
--- NOTE | 2017-09-22 15:58 | HHI.GIFU ---
Subjective Remarks Pt just back from stress test. SHe is upset b/c she is hungry. Said she had 1 episode loose stool this morning. (Saritha Funk) Objective Vitals I&O Vital Signs Date Time Temp Pulse Resp B/P (MAP) Pulse Ox O2 Delivery O2 Flow Rate FiO2 09/22/17 12:05 97.8 79 20 99/56 (70) 100 09/22/17 08:05 97.9 77 20 108/57 (74) 99 09/22/17 08:00 82 09/22/17 07:00 Nasal Cannula 3.00 09/22/17 04:00 97.9 80 20 99/69 (79) 97 09/22/17 03:47 74 09/22/17 02:09 93 Nasal Cannula 3.00 09/22/17 00:00 98.1 77 18 117/70 (86) 100 09/22/17 00:00 Nasal Cannula 3.00 09/21/17 23:47 81 09/21/17 20:00 97.8 92 20 125/74 (91) 100 09/21/17 20:00 Nasal Cannula 3.00 09/21/17 19:44 81 09/21/17 16:00 98.0 83 18 104/58 (73) 100 09/21/17 16:00 92 I/O 09/21/17 09/21/17 09/21/17 09/22/17 09/22/17 09/22/17 07:00 15:00 23:00 07:00 15:00 23:00 Intake Total 240 ml 480 ml 0 ml Output Total 900 ml 1400 ml Balance -660 ml -920 ml 0 ml Intake Oral 240 ml 480 ml 0 ml Output Urine Total 900 ml 1400 ml # Voids 8 # Bowel Movements 5 2 0 Laboratory Laboratory Tests Test 09/22/17 06:30 Blood Urea Nitrogen 2 Creatinine LESS THAN 0.15 Random Glucose 86 Calcium Level 8.3 Magnesium Level 1.7 Sodium Level 134 Potassium Level 3.9 Chloride Level 97 Carbon Dioxide Level 31.4 Anion Gap 6 Estimat Glomerular Filtration Rate 495 Date/Time Source Procedure Growth Status 09/11/17 13:30 Blood Peripheral Aerobic Blood Culture - Final NO GROWTH IN 5 DAYS Complete 09/11/17 13:30 Blood Peripheral Anaerobic Blood Culture - Final NO GROWTH IN 5 DAYS Complete 09/15/17 17:15 Nasal Aspirate Influenza Types A,B Antigen (CHARMAINE) - Final NEGATIVE FOR FLU A AND B ANTIGEN.... Complete 09/15/17 17:15 Urine Random Urine Legionella Antigen - Final PRESUMPTIVE NEGATIVE FOR LEGIONELLA P... Complete 09/15/17 17:15 Urine Random Urine Streptococcus pneumoniae Antigen (M - Final PRESUMPTIVE NEGATIVE FOR STREPTOCOCCU... Complete Imaging Last Impressions Abdomen/Pelvis CT 09/18/17 0000 Signed Impressions: Service Date/Time: September 18:23 - CONCLUSION: 1. Colitis suspected in the proper clinical setting, most likely infectious or inflammatory. C. difficile colitis should be included in the differential. 2. Mildly prominent distal common bile duct and with some focal thickening of the third portion of the duodenum. Duodenal or ampullary mass not excludable. Direct visualization with EGD and ERCP suggested. 3. Severe and diffuse fatty infiltration of the liver. No focal hepatic lesion. 4. Small ascites, right greater than left pleural effusions and diffuse body wall edema/anasarca. Marlon Nascimento MD Chest X-Ray 09/17/17 0000 Signed Impressions: Service Date/Time: Sunday, September 17, 2017 15:22 - CONCLUSION: Mild perihilar infiltrates. Small bilateral pleural effusions. Degenerative changes and scoliosis of the thoracolumbar spine. Javier Adam MD Lower Extremity Ultrasound 09/12/17 0000 Signed Impressions: Service Date/Time: Tuesday, September 12, 2017 11:23 - CONCLUSION: 1. No sonographic evidence for lower extremity DVT. Brian De Souza MD Liver Ultrasound 09/12/17 0000 Signed Impressions: Service Date/Time: Tuesday, September 12, 2017 18:26 - CONCLUSION: Enlarged fatty liver. Bilateral pleural effusions. Javier Adam MD Physical Exam GEN: frail HEENT: Normocephalic; atraumatic CHEST: respirations unlabored CARDIAC: RRR ABDOMEN: Soft, nondistended, nontender EXTREMITIES: No clubbing, cyanosis, or edema. SKIN: Normal; no rash; no jaundice. SPORTS INFORMATION DIRECTOR: AOX3, weak (Saritha Funk) Assessment and Plan Plan Pt is poor historian - Dysphagia- Pt reports dysphagia that began prior to admission with associated decreased appetite. She attributes it to overall not feeling well. Denies odynophagia. Reports improvement in swallowing today and denies any difficulty. Previously with both liquids and solids. Last EGD 3-4 years ago in [place] and states normal exam. Denies acid reflux, heartburn. Of note, takes Goody Powder daily at home. Also previous PPD smoker but has decreased smoking to 3 cigarettes per day over the past month and a half - Weight loss, unintentional- Pt is unsure how much weight she has lost and over what period of time. Decreased appetite. Denies family history of cancer. Last colonoscopy 3-4 years ago in [place] and states normal exam. - Elevated LFTs- likely secondary to ETOH- improving since admission. liver (09/12) --> Enlarged fatty liver. Hepatitis panel negative. - Coagulopathy- INR 6.6. on arrival, not on blood thinners, now corrected. ? related to liver disease - Abdominal cramping/pain- Diffuse, states started at the same time diarrhea began. - Diarrhea- C. diff positive, Epid negative. Currently on oral Vanco, was previously on Dificid which has since been discontinued due to pts complaints of nausea. Denies continued nausea. BMs have decrease, now 3 BMs a day. Denies BRB in stool. - Pneumonia- per attending. Currently on 2 L humidified O2 via NC. Azithromycin (09/19) Pt S/P CT abdomen and pelvis W IV contrast yesterday --> Colitis suspected in the proper clinical setting, most likely infectious or inflammatory. Mildly prominent distal common bile duct and with some focal thickening of the third portion of the duodenum. Duodenal or ampullary mass not excludable. Direct visualization with EGD and ERCP suggested. Severe and diffuse fatty infiltration of the liver. No focal hepatic lesion. Small ascites, right greater than left pleural effusions and diffuse body wall edema/anasarca. Pt remains on Vanco and Mesalamine. She is now agreeable to EGD with ERCP to be done on Friday. Does not think she could tolerate prep for colonoscopy due to weakness. Will also order tumor markers. LFTs continue to improve, labs from today pending. Liver work up pending. Hepatitis panel negative. Iron-58 TIBC-113 %sat 51.1 Ferritin-514. (09/20) --> Pt with continued weakness today, only took a few bites of her breakfast. Diarrhea (+) C. Diff. On oral Vanco. Refusing rectal Mesalamine. Rest of liver CHAMBERLAIN still pending. Tumor markers as follows: AFP-8 CEA-27.7 CA 19-9 <1.2. Plan remains to do EGD on Friday, EUS vs ERCP. (09/21) --> Pt with worsening of SOB today, evaluated by Dr. Lopez who is ordering a stress test. Will hold GI procedure until Friday, pending stress test result and respiratory status. AST and ALT now WNL, Alk phos remains elevated, will order iso-enzymes 09/22/17 stress test report pending. 1 x loose BM this morning. thus far liver w/u unremarkable. PLAN - EGD with ERCP vs EUS tomorrow pending stress test report - NPO after midnight - rck LFTs in am - diet today per attending - supportive care pt seen by myself and Dr Ngo and this note is written on his behalf (Saritha Funk) Physician Comments Patient seen and examined Agree with above Continue with current supportive care Monitor labs We'll proceed with an EGD and endoscopic ultrasound tomorrow with possibility of an ERCP if warranted (Mehdi Ngo MD) Saritha Funk Sep 22, 2017 15:58 Mehdi Ngo MD Sep 22, 2017 18:59
--- NOTE | 2017-09-22 19:02 | ECHRPT ---
Indication: HEART FAILURE CONCLUSIONS Normal left ventricular size. Wall thickness is normal. The left ventricular systolic function is normal with an estimated ejection fraction in the range of 55-60%. Trace mitral valve regurgitation. [id number] aortic valve regurgitation. BP: 111 / 60 HR: 70 Rhythm: Sinus MEASUREMENTS (Male / Female) Normal Values Technical Quality:Fair 2D ECHO LV Diastolic Diameter PLAX 5.7 cm 4.2 - 5.9 / 3.9 - 5.3 cm LV Systolic Diameter PLAX 4.0 cm IVS Diastolic Thickness 0.6 cm 0.6 - 1.0 / 0.6 - 0.9 cm LVPW Diastolic Thickness 0.6 cm 0.6 - 1.0 / 0.6 - 0.9 cm LV Relative Wall Thickness 0.2 RV Internal Dim ED PLAX 1.9 cm LVOT Diameter 1.8 cm Aortic Root Diameter 2.8 cm LA Systolic Diameter LX 2.3 cm 3.0 - 4.0 / 2.7 - 3.8 cm M-MODE AV Cusp Separation MM 2.2 cm DOPPLER AV Peak Velocity 159.0 cm/s AV Peak Gradient 10.1 mmHg AV Mean Gradient 5.0 mmHg AV Velocity Time Integral 30.6 cm AI Peak Velocity 335.0 cm/s AI Peak Gradient 44.9 mmHg AI Pressure Half Time 545.0 ms LVOT Peak Velocity 122.0 cm/s LVOT Peak Gradient 6.0 mmHg LVOT Velocity Time Integral 21.1 cm AV Area Cont Eq vti 1.8 cm AV Area Cont Eq pk 2.0 cm Mitral E Point Velocity 83.4 cm/s Mitral A Point Velocity 71.6 cm/s Mitral E to A Ratio 1.2 LV E' Lateral Velocity 8.7 cm/s Mitral E to LV E' Lateral Ratio 9.6 LV E' Septal Velocity 6.2 cm/s Mitral E to LV E' Septal Ratio 13.4 TR Peak Velocity 289.0 cm/s TR Peak Gradient 33.4 mmHg Right Atrial Pressure 10.0 mmHg Pulmonary Artery Systolic Pressu 43.4 mmHg Right Ventricular Systolic Press 43.4 mmHg PV Peak Velocity 57.1 cm/s PV Peak Gradient 1.3 mmHg FINDINGS LEFT VENTRICLE Normal left ventricular size. Wall thickness is normal. The left ventricular systolic function is normal with an estimated ejection fraction in the range of 55-60%. ATRIAL SEPTUM No atrial level shunt is demonstrated by color flow Doppler interrogation. MITRAL VALVE Trace mitral valve regurgitation. AORTIC VALVE [id number] aortic valve regurgitation. PULMONARY VALVE The pulmonary valve is not well visualized. VESSELS The inferior vena cava is normal in size. Norma Canales MD, FACC (Electronically Signed) Final Date:22 September 2017 19:01
--- NOTE | 2017-09-22 19:33 | HHI.PR ---
Addendum to Inpatient Note Addendum Reason: Additional Documentation Additional Information Patient in hospital for cardiac issues. Vanco and Mesalamine stop dates in chart. Will sign off please call back if any change in clinical condition or questions. Jessie Harmon MD Sep 22, 2017 19:33
[2017-09-23] VITALS (12 sets, daily range): BP systolic 93–114; BP diastolic 50–67; PULSE 77–98; RESP 16–18; TEMP 97.5–98.2; O2SAT 98–100
[2017-09-23] MEDS: MESALAMINE HD 800 MG DELAYED RELEASE TAB PO SCH ×3 (05:03→21:36)
[2017-09-23] MEDS: CALCIUM CARBONATE 1.25 GM (CA 500 MG) TAB PO SCH (09:00)
[2017-09-23] MEDS: SODIUM CHLORIDE 0.9% FLUSH 10 ML FLUSH IV FLUSH SCH ×2 (09:00→21:00)
[2017-09-23] MEDS: MEGESTROL ACETATE 40 MG TAB PO SCH ×2 (10:27→21:35)
[2017-09-23] MEDS: FOLIC ACID 1 MG TAB PO SCH (10:27)
[2017-09-23] MEDS: VANCOMYCIN 25 MG/ML SUSP 100 ML BOTTLE PO SCH ×4 (10:27→21:00)
[2017-09-23] MEDS: POTASSIUM CHLORIDE 20 MEQ CONTROLLED RELEASE TAB PO SCH ×2 (10:27→21:36)
[2017-09-23] MEDS ORDERED: LIDOCAINE HCL 1% PF 5 ML SYRINGE OTHER ONE (12:00)
[2017-09-23] MEDS ORDERED: PROPOFOL 200 MG/20 ML AMP IV ONE (12:00)
[2017-09-23] MEDS ORDERED: GLYCOPYRROLATE 1 MG/5 ML SYRINGE IV PUSH ONE (12:00)
[2017-09-23] MEDS ORDERED: DEXAMETHASONE SOD PHOS 4 MG/ML VIAL IV ONE (12:00)
[2017-09-23] MEDS ORDERED: PHENYLEPH/NS 1000 MCG/10 ML SYR IV ONE (12:00)
[2017-09-23] MEDS ORDERED: ePHEDrine/NS 25 MG/5 ML SYRINGE IV ONE (12:00)
[2017-09-23] MEDS ORDERED: ESMOLOL HCL 100 MG/10 ML VIAL IV ONE (12:00)
[2017-09-23] MEDS ORDERED: ROCURONIUM INJ 50 MG/5 ML SYRINGE IV PUSH ONE (12:00)
[2017-09-23] MEDS ORDERED: NEOSTIGMINE 5 MG/5 ML SYRINGE IV PUSH ONE (12:00)
[2017-09-23 13:51] LABS: MITOCHONDRIAL ABS LESS THAN 20.0 U (<=20.0)
--- NOTE | 2017-09-23 14:55 | HHI.PR ---
Subjective Remarks Concerned about getting a diet after the procedure. No other complaints. Objective Vitals Vital Signs Date Time Temp Pulse Resp B/P (MAP) Pulse Ox O2 Delivery O2 Flow Rate FiO2 09/23/17 12:05 98.0 88 17 98/63 (75) 98 09/23/17 10:21 79 09/23/17 09:36 100 Nasal Cannula 3.00 09/23/17 08:05 97.8 86 17 93/54 (67) 98 09/23/17 07:00 Nasal Cannula 3.00 09/23/17 05:00 97.8 77 16 96/55 (69) 100 09/23/17 04:09 81 09/23/17 03:53 Nasal Cannula 3.00 09/23/17 00:07 79 09/23/17 00:07 91 09/23/17 00:00 98.2 94 18 95/50 (65) 99 09/23/17 00:00 Nasal Cannula 3.00 09/22/17 22:05 Nasal Cannula 3.00 09/22/17 20:08 98.6 79 16 91/54 (66) 100 09/22/17 16:05 97.4 83 20 97/55 (69) 93 09/22/17 16:00 77 I/O 09/22/17 09/22/17 09/22/17 09/23/17 09/23/17 09/23/17 07:00 15:00 23:00 07:00 15:00 23:00 Intake Total 0 ml 0 ml 0 ml Output Total 550 ml Balance 0 ml 0 ml -550 ml Intake Oral 0 ml 0 ml 0 ml Output Urine Total 550 ml # Voids 8 4 # Bowel Movements 0 0 2 Result Diagram: 09/21/17 0839 09/23/17 0612 Objective Remarks GENERAL: Cachectic appearing female in no apparent distress. CARDIOVASCULAR: Normal rate and regular rhythm without murmurs, gallops, or rubs. RESPIRATORY: Good respiratory efforts. Breath sounds equal and clear to auscultation bilaterally. GASTROINTESTINAL: Abdomen soft, non-tender, non-distended. Normal active bowel sounds MUSCULOSKELETAL: Extremities without cyanosis, or edema. NEURO: Alert & Oriented x4 to person, place, time, situation. Moves all ext x4 PSYCH: Appropriate mood and affect. Procedures none A/P Problem List: (1) C. difficile diarrhea ICD Code: A04.72 - Enterocolitis due to Clostridium difficile, not specified as recurrent (2) Pneumonia ICD Code: J18.9 - Pneumonia, unspecified organism Assessment and Plan 66-year-old female with: Exertional chest pain with shortness of breath and dizziness. EKG with poor R- wave progression. CK troponin 1 negative. Nuclear stress test negative. Community acquired pneumonia. Stable. Status post Zithromax and cefepime. Severe C diff infection. Improving continue po vancomycin and Asacol and discontinue IV hydration. Vancomycin and mesalamine stop date per ID. Dehydration with electrolyte derangements. Improved status post IV hydration ( secondary to anasarca) and replace electrolytes aggressively. Elevated LFTs 2/2 sepsis and fatty liver. Hep screen negative. HIV negative. Elevated CEA normal AFP and CA-19-9. US with enlarged fatty liver. Abnormal CT showing prominent CBD -EGD/possible EUS today per GI. Anasarca likely secondary to low albumin. Maintaining negative fluid balance. Unable to diurese secondary to ongoing diarrhea. Elevated BNP will follow up echocardiogram. Consider IV albumin. Continue Ensure PPx: SCDs. Discharge Planning Pending EGD/EUS findings. Will need SNF. Ana Delatorre MD Sep 23, 2017 14:55
[2017-09-23] MEDS ORDERED: DO NOT ADM ANY ANTICOAGULANT DRUGS PRN (16:50)
--- NOTE | 2017-09-23 17:11 | PD.PROCEDR ---
GI Procedure PROCEDURE PERFORMED Endoscopic ultrasound INDICATION FOR PROCEDURE Abnormal findings on CT PROCEDURE: The procedure, risks and benefits were discussed with Ms. Bowens and informed consent was obtained. Anesthesia sedated her with Diprivan. She was placed in the left lateral decubitus position. Endoscopic ultrasound: The Pentax videoscope was introduced through the oropharynx and advanced to the second portion of the duodenum. FINDINGS: The pancreas appeared to be unremarkable from head to tail The pancreatic duct also appeared to be unremarkable from head to tail The common bile duct appeared to be mildly dilated at 8 mm with no filling defects with a gradual taper to the ampulla The ampulla appeared to be unremarkable and normal limits The gallbladder was also unremarkable with normal limits No lymphadenopathy noted ESTIMATED BLOOD LOSS: None SPECIMENS REMOVED: None COMPLICATIONS: None IMPRESSION: Unremarkable endoscopic ultrasound except for mild prominence of the common bile duct PLAN: Monitor labs Continue with current supportive care Mehdi Ngo MD Sep 23, 2017 17:11
[2017-09-23] MEDS ORDERED: MIDAZOLAM HCL 2 MG/2 ML VIAL ONE (17:48)
[2017-09-23 18:44] LABS: AUTOMATED NEUTROPHIL # 7.1 TH/MM3 (1.8-7.7); BASOPHIL # 0.1 TH/MM3 (0-0.2); BASOPHIL % 1.1 % (0.0-2.0); EOSINOPHIL % 0.2 % (0.0-4.0); HEMATOCRIT 27.3 % (35.0-46.0); HEMOGLOBIN 9.3 GM/DL (11.6-15.3); LYMPH % 6.3 % (9.0-44.0); LYMPHOCYTE # 0.5 TH/MM3 (1.0-4.8); MEAN CELL VOLUME 110.4 FL (80.0-100.0); MEAN CORPUSCULAR HEMOGLOBIN 37.6 PG (27.0-34.0); MEAN CORPUSCULAR HGB CONC 34.1 % (32.0-36.0); MEAN PLATELET VOLUME 7.9 FL (7.0-11.0); MONO % 4.8 % (0.0-8.0); MONOCYTE # 0.4 TH/MM3 (0-0.9); NEUT % 87.6 % (16.0-70.0); PLATELET COUNT 220 TH/MM3 (150-450); RED BLOOD COUNT 2.47 MIL/MM3 (4.00-5.30); RED CELL DISTRIBUTION WIDTH 19.1 % (11.6-17.2); WHITE BLOOD COUNT 8.2 TH/MM3 (4.0-11.0)
[2017-09-23 19:51] LABS: ALBUMIN 2.1 GM/DL (3.4-5.0); DIRECT BILIRUBIN ADULT 0.4 MG/DL (0.0-0.2); INDIRECT BILIRUBIN 0.4 MG/DL (0.0-0.8); TOTAL BILIRUBIN ADULT 0.8 MG/DL (0.2-1.0); TOTAL PROTEIN 5.6 GM/DL (6.4-8.2)
[2017-09-23 19:53] LABS: CREATININE 0.17 MG/DL (0.50-1.00)
[2017-09-23 19:54] LABS: BICARBONATE 31.5 MEQ/L (21.0-32.0); CALCIUM 8.5 MG/DL (8.5-10.1)
[2017-09-24] VITALS (8 sets, daily range): BP systolic 104–125; BP diastolic 55–66; PULSE 81–122; RESP 18–20; TEMP 97.5–98.3; O2SAT 98–100
[2017-09-24] MEDS: MESALAMINE HD 800 MG DELAYED RELEASE TAB PO SCH ×2 (05:43→12:05)
[2017-09-24] MEDS: VANCOMYCIN 25 MG/ML SUSP 100 ML BOTTLE PO SCH ×3 (09:00→17:16)
[2017-09-24] MEDS: SODIUM CHLORIDE 0.9% FLUSH 10 ML FLUSH IV FLUSH SCH (09:05)
[2017-09-24] MEDS: POTASSIUM CHLORIDE 20 MEQ CONTROLLED RELEASE TAB PO SCH (09:05)
[2017-09-24] MEDS: FOLIC ACID 1 MG TAB PO SCH (09:05)
[2017-09-24] MEDS: MEGESTROL ACETATE 40 MG TAB PO SCH (09:06)
[2017-09-24] MEDS: CALCIUM CARBONATE 1.25 GM (CA 500 MG) TAB PO SCH (09:06)
[2017-09-24 09:25] LABS: HEMOGLOBIN 8.4 GM/DL (11.6-15.3); MEAN CORPUSCULAR HGB CONC 33.7 % (32.0-36.0); MEAN PLATELET VOLUME 8.2 FL (7.0-11.0); PLATELET COUNT 199 TH/MM3 (150-450); RED BLOOD COUNT 2.28 MIL/MM3 (4.00-5.30); RED CELL DISTRIBUTION WIDTH 18.9 % (11.6-17.2); WHITE BLOOD COUNT 5.5 TH/MM3 (4.0-11.0)
[2017-09-24 09:49] LABS: AST (GOT) 35 U/L (15-37); BLOOD UREA NITROGEN 5 MG/DL (7-18); CALCIUM 8.7 MG/DL (8.5-10.1); CHLORIDE 96 MEQ/L (98-107); CREATININE LESS THAN 0.15 MG/DL (0.50-1.00); GLOMERULAR FILTRATION RATE 495 ML/MIN (>89); GLUCOSE,RANDOM 68 MG/DL (74-106); SODIUM (NA) 133 MEQ/L (136-145)
[2017-09-24 09:50] LABS: ALT (GPT) 16 U/L (10-53)
[2017-09-24 09:52] LABS: ALKALINE PHOSPHATASE 151 U/L (45-117); TOTAL BILIRUBIN ADULT 0.7 MG/DL (0.2-1.0); TOTAL PROTEIN 5.1 GM/DL (6.4-8.2)
[2017-09-24] MEDS ORDERED: CALC500 PO (10:34)
[2017-09-24] MEDS ORDERED: VANC125C3 PO (10:34)
[2017-09-24] MEDS ORDERED: MESA1TAB2 PO (10:34)
[2017-09-24] MEDS ORDERED: FOLI1TAB6 PO (10:34)
[2017-09-24] MEDS ORDERED: MEGE40TA PO (10:34)
--- NOTE | 2017-09-24 10:39 | HHI.DS ---
Discharge Summary Admission Date Sep 11, 2017 at 16:20 Discharge Date: Sep 24, 2017 Admitting Diagnosis hyponatremia. Hypokalemia. Hypoglycemia. Coagulopathy. Transamin (1) C. difficile diarrhea ICD Code: A04.72 - Enterocolitis due to Clostridium difficile, not specified as recurrent (2) Pneumonia ICD Code: J18.9 - Pneumonia, unspecified organism (3) Dehydration ICD Code: E86.0 - Dehydration (4) Electrolyte abnormality ICD Code: E87.8 - Other disorders of electrolyte and fluid balance, not elsewhere classified (5) Physical deconditioning ICD Code: R53.81 - Other malaise Procedures EGD/EUS Brief History - From Admission HPI from the admitting physician 66 years old female presented to the ED complaining of worsening generalized malaise and weakness, in general patient looks older than her real age, very fatigued, barely answering question unable to talk. She stated the symptoms has been going on for several months, almost 5, patient stated she used to drink alcohol but she stopped about 3 months ago however she takes what she called a "goody powder"she told me this is like aspirin for arthritis. In ED she was found to have metabolic acidosis anion gap, also she had episodes of hypoglycemia blood glucose dropped to 37 while she was on the way to the hospital she got the 10 by the rn medical inpatient services and blood sugar improved to 170. Patient denied any other [id number] medication or prescriptions medication. She stated she is been eating and drinking well recently. Patient denied any fever or chills chest pain, she complained of burning pain in her feet, also patient told me she has a history of lupus and possibly diabetes mellitus but she is not sure she smoked 3 cigarettes a day CBC/BMP: 09/24/17 0820 09/24/17 0820 Significant Findings Laboratory Tests Test 09/22/17 06:30 09/23/17 06:12 09/23/17 18:34 09/24/17 08:20 Blood Urea Nitrogen 2 MG/DL (7-18) 3 MG/DL (7-18) 5 MG/DL (7-18) Creatinine LESS THAN 0.15 MG/DL 0.17 MG/DL (0.50-1.00) LESS THAN 0.15 MG/DL Calcium Level 8.3 MG/DL (8.5-10.1) Sodium Level 134 MEQ/L (136-145) 133 MEQ/L (136-145) 133 MEQ/L (136-145) Chloride Level 97 MEQ/L (98-107) 97 MEQ/L (98-107) 96 MEQ/L (98-107) Random Glucose 109 MG/DL (74-106) 68 MG/DL (74-106) Red Blood Count 2.47 MIL/MM3 (4.00-5.30) 2.28 MIL/MM3 (4.00-5.30) Hemoglobin 9.3 GM/DL (11.6-15.3) 8.4 GM/DL (11.6-15.3) Hematocrit 27.3 % (35.0-46.0) 25.0 % (35.0-46.0) Mean Corpuscular Volume 110.4 FL (80.0-100.0) 110.0 FL (80.0-100.0) Mean Corpuscular Hemoglobin 37.6 PG (27.0-34.0) 37.0 PG (27.0-34.0) Red Cell Distribution Width 19.1 % (11.6-17.2) 18.9 % (11.6-17.2) Neutrophils (%) (Auto) 87.6 % (16.0-70.0) Lymphocytes (%) (Auto) 6.3 % (9.0-44.0) Lymphocytes # (Auto) 0.5 TH/MM3 (1.0-4.8) Direct Bilirubin 0.4 MG/DL (0.0-0.2) Alkaline Phosphatase 183 U/L (45-117) 151 U/L (45-117) Total Protein 5.6 GM/DL (6.4-8.2) 5.1 GM/DL (6.4-8.2) Albumin 2.1 GM/DL (3.4-5.0) 2.0 GM/DL (3.4-5.0) Imaging Last Impressions Myocardial Perfusion Scan Nuc Med 09/22/17 0000 Signed Impressions: Service Date/Time: Friday, September 22, 2017 12:16 - CONCLUSION: Negative for stress-induced ischemia Fixed defect in the anterior septal region. Correlation is suggested with the fixed defect. RISK CATEGORY: Low (<1%% Annual Mortality Rate) Yehuda Alvarez MD FACR Abdomen/Pelvis CT 09/18/17 0000 Signed Impressions: Service Date/Time: September 18:23 - CONCLUSION: 1. Colitis suspected in the proper clinical setting, most likely infectious or inflammatory. C. difficile colitis should be included in the differential. 2. Mildly prominent distal common bile duct and with some focal thickening of the third portion of the duodenum. Duodenal or ampullary mass not excludable. Direct visualization with EGD and ERCP suggested. 3. Severe and diffuse fatty infiltration of the liver. No focal hepatic lesion. 4. Small ascites, right greater than left pleural effusions and diffuse body wall edema/anasarca. Marlon Nascimento MD Chest X-Ray 09/17/17 0000 Signed Impressions: Service Date/Time: Sunday, September 17, 2017 15:22 - CONCLUSION: Mild perihilar infiltrates. Small bilateral pleural effusions. Degenerative changes and scoliosis of the thoracolumbar spine. Javier Adam MD Lower Extremity Ultrasound 09/12/17 0000 Signed Impressions: Service Date/Time: Tuesday, September 12, 2017 11:23 - CONCLUSION: 1. No sonographic evidence for lower extremity DVT. Brian De Souza MD Liver Ultrasound 09/12/17 0000 Signed Impressions: Service Date/Time: Tuesday, September 12, 2017 18:26 - CONCLUSION: Enlarged fatty liver. Bilateral pleural effusions. Javier Adam MD PE at Discharge GENERAL: Cachectic appearing female in no apparent distress. CARDIOVASCULAR: Normal rate and regular rhythm without murmurs, gallops, or rubs. RESPIRATORY: Good respiratory efforts. Breath sounds equal and clear to auscultation bilaterally. GASTROINTESTINAL: Abdomen soft, non-tender, non-distended. Normal active bowel sounds MUSCULOSKELETAL: Extremities without cyanosis, or edema. NEURO: Alert & Oriented x4 to person, place, time, situation. Moves all ext x4 PSYCH: Appropriate mood and affect. Pt update on day of discharge Patient is eager to go to SNF for rehabilitation. She denies any abdominal pain. She wants a regular diet. Hospital Course 66-year-old female admitted and treated for the following: Exertional chest pain with shortness of breath and dizziness. EKG with poor R- wave progression. CK troponin 1 negative. Nuclear stress test negative. Chest pain completely resolved. This is likely due to physical deconditioning. Community acquired pneumonia. The patient received treatment with Zithromax and cefepime. She completed a course of antibiotics. Respiratory symptoms resolved. Severe C diff infection. The patient was treated with vancomycin and Asacol under the guidance of these. She will continue these medications to complete the course of treatment per the med rec. Dehydration with electrolyte derangements. Electrolytes were replaced. Elevated LFTs 2/2 sepsis and fatty liver. Hep screen negative. HIV negative. Elevated CEA normal AFP and CA-19-9. US with enlarged fatty liver. Abnormal CT showing prominent CBD -Patient was followed by GI. She underwent EGD/EUS which was unremarkable except for prominent common bile duct. Anasarca likely secondary to low albumin. Poor nutrition. Elevated BNP, however LVEF is preserved on echocardiogram. Discussed appropriate nutrition with the patient. Continue Ensure. Regular diet as tolerated. Patient started on Megace. Appetite improved. Physical deconditioning: Secondary to conditions above. - Patient to continue rehabilitation at a halfway facility. Pt Condition on Discharge: Good Discharge Disposition: Discharge to SNF Discharge Time: > 30 minutes Discharge Instructions DIET: Follow Instructions for: Heart Healthy Diet Activities you can perform: Regular-No Restrictions Follow up Referrals: Gastroenterology - 1 Week PCP Follow-up - 1 Week New Medications: Vancomycin (Vancomycin) 125 Mg Cap 125 MG PO QID for Infection, #8 CAP 0 Refills Folic Acid (Folic Acid) 1 Mg Tablet 1 MG PO DAILY, #30 TAB Megestrol (Megestrol) 40 Mg Tab 40 MG PO Q12HR, #[address] (Mesalamine DR) 800 Mg Tab 1600 MG PO Q8HR, #12 TAB Oyster Shell (Oyster Calcium) 500 Mg Calcium (1250 Mg) Tab 500 MG PO DAILY, #30 TAB Continued Medications: Albuterol 18 GM Inh (Ventolin Hfa 18 GM Inh) 90 Mcg/Act Aer 2 PUFF INH Q4-6H PRN for SHORTNESS OF BREATH for 30 Days, #1 INHALER 0 Refills Ana Delatorre MD Sep 24, 2017 10:39
--- NOTE | 2017-09-24 14:51 | HHI.GIFU ---
Subjective Remarks Resting in the bed Hoping to go to rehabilitation today or something States stools are more controlled, no further diarrhea, brown muddy consistency once today once yesterday Abdomen taut, but denies any pain (Joaquina Little) Objective Vitals I&O Vital Signs Date Time Temp Pulse Resp B/P (MAP) Pulse Ox O2 Delivery O2 Flow Rate FiO2 09/24/17 12:00 81 09/24/17 12:00 97.9 93 18 109/55 (73) 100 09/24/17 10:08 100 Nasal Cannula 3.00 09/24/17 09:46 Nasal Cannula 3.00 09/24/17 08:00 97.7 83 20 104/66 (79) 100 09/24/17 08:00 82 09/24/17 04:09 83 09/24/17 04:00 98.2 89 18 104/58 (73) 100 09/24/17 04:00 Nasal Cannula 3.00 09/24/17 00:08 122 09/24/17 00:00 Nasal Cannula 3.00 09/24/17 00:00 97.5 92 18 125/59 (81) 98 09/23/17 21:30 Nasal Cannula 3.00 09/23/17 20:20 93 09/23/17 20:00 97.5 98 18 114/67 (83) 100 09/23/17 17:30 90 18 123/65 (84) 100 Nasal Cannula 3 09/23/17 17:15 83 14 113/62 (79) 100 Nasal Cannula 3 09/23/17 17:00 91 19 110/63 (79) 100 Nasal Cannula 3 09/23/17 16:48 97.8 89 19 108/63 (78) 100 Nasal Cannula 3 09/23/17 16:00 78 I/O 09/23/17 09/23/17 09/23/17 09/24/17 09/24/17 09/24/17 06:59 14:59 22:59 06:59 14:59 22:59 Intake Total 0 ml 400 ml 240 ml Output Total 550 ml 400 ml Balance -550 ml 400 ml -160 ml Intake Oral 0 ml 0 ml 240 ml Other 400 ml Output Urine Total 550 ml 400 ml # Voids 4 # Bowel Movements 2 1 0 Laboratory Laboratory Tests Test 09/23/17 18:34 09/24/17 08:20 White Blood Count 8.2 5.5 Red Blood Count 2.47 2.28 Hemoglobin 9.3 8.4 Hematocrit 27.3 25.0 Mean Corpuscular Volume 110.4 110.0 Mean Corpuscular Hemoglobin 37.6 37.0 Mean Corpuscular Hemoglobin Concent 34.1 33.7 Red Cell Distribution Width 19.1 18.9 Platelet Count 220 199 Mean Platelet Volume 7.9 8.2 Neutrophils (%) (Auto) 87.6 Lymphocytes (%) (Auto) 6.3 Monocytes (%) (Auto) 4.8 Eosinophils (%) (Auto) 0.2 Basophils (%) (Auto) 1.1 Neutrophils # (Auto) 7.1 Lymphocytes # (Auto) 0.5 Monocytes # (Auto) 0.4 Eosinophils # (Auto) 0.0 Basophils # (Auto) 0.1 CBC Comment DIFF FINAL Differential Comment Total Bilirubin 0.8 0.7 Direct Bilirubin 0.4 Indirect Bilirubin 0.4 Aspartate Amino Transf (AST/SGOT) 37 35 Alanine Aminotransferase (ALT/SGPT) 18 16 Alkaline Phosphatase 183 151 Total Protein 5.6 5.1 Albumin 2.1 2.0 Blood Urea Nitrogen 5 Creatinine LESS THAN 0.15 Random Glucose 68 Calcium Level 8.7 Sodium Level 133 Potassium Level 4.1 Chloride Level 96 Carbon Dioxide Level 30.0 Anion Gap 7 Estimat Glomerular Filtration Rate 495 Date/Time Source Procedure Growth Status 09/11/17 13:30 Blood Peripheral Aerobic Blood Culture - Final NO GROWTH IN 5 DAYS Complete 09/11/17 13:30 Blood Peripheral Anaerobic Blood Culture - Final NO GROWTH IN 5 DAYS Complete 09/15/17 17:15 Nasal Aspirate Influenza Types A,B Antigen (CHARMAINE) - Final NEGATIVE FOR FLU A AND B ANTIGEN.... Complete 09/15/17 17:15 Urine Random Urine Legionella Antigen - Final PRESUMPTIVE NEGATIVE FOR LEGIONELLA P... Complete 09/15/17 17:15 Urine Random Urine Streptococcus pneumoniae Antigen (M - Final PRESUMPTIVE NEGATIVE FOR STREPTOCOCCU... Complete Imaging Last Impressions Myocardial Perfusion Scan Nuc Med 09/22/17 0000 Signed Impressions: Service Date/Time: Friday, September 22, 2017 12:16 - CONCLUSION: Negative for stress-induced ischemia Fixed defect in the anterior septal region. Correlation is suggested with the fixed defect. RISK CATEGORY: Low (<1%% Annual Mortality Rate) Yehuda Alvarez MD FACR Abdomen/Pelvis CT 09/18/17 0000 Signed Impressions: Service Date/Time: September 18:23 - CONCLUSION: 1. Colitis suspected in the proper clinical setting, most likely infectious or inflammatory. C. difficile colitis should be included in the differential. 2. Mildly prominent distal common bile duct and with some focal thickening of the third portion of the duodenum. Duodenal or ampullary mass not excludable. Direct visualization with EGD and ERCP suggested. 3. Severe and diffuse fatty infiltration of the liver. No focal hepatic lesion. 4. Small ascites, right greater than left pleural effusions and diffuse body wall edema/anasarca. Marlon Nascimento MD Chest X-Ray 09/17/17 0000 Signed Impressions: Service Date/Time: Sunday, September 17, 2017 15:22 - CONCLUSION: Mild perihilar infiltrates. Small bilateral pleural effusions. Degenerative changes and scoliosis of the thoracolumbar spine. Javier Adam MD Lower Extremity Ultrasound 09/12/17 0000 Signed Impressions: Service Date/Time: Tuesday, September 12, 2017 11:23 - CONCLUSION: 1. No sonographic evidence for lower extremity DVT. Brian De Souza MD Liver Ultrasound 09/12/17 0000 Signed Impressions: Service Date/Time: Tuesday, September 12, 2017 18:26 - CONCLUSION: Enlarged fatty liver. Bilateral pleural effusions. Javire Adam MD Physical Exam GEN: frail, answers questions appropriately for current events HEENT: Normocephalic; atraumatic CHEST: respirations unlabored, breath sounds mild diminished in bases CARDIAC: RRR ABDOMEN: Soft, nondistended, nontender , taut, bowel sounds active EXTREMITIES: No clubbing, cyanosis, or edema. SKIN: Thin turgor, pale; no rash; no jaundice. 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 She attributes it to overall not feeling well. Denies odynophagia. Reports improvement in swallowing today and denies any difficulty. Previously with both liquids and solids. Last EGD 3-4 years ago in [place] and states normal exam. Denies acid reflux, heartburn. Of note, takes Goody Powder daily at home. Also previous PPD smoker but has decreased smoking to 3 cigarettes per day over the past month and a half - Weight loss, unintentional- Pt is unsure how much weight she has lost and over what period of time. Decreased appetite. Denies family history of cancer. Last colonoscopy 3-4 years ago in [place] and states normal exam. - Elevated LFTs- likely secondary to ETOH- improving since admission. US liver (09/12) --> Enlarged fatty liver. Hepatitis panel negative., Resolving - Coagulopathy- INR 6.6. on arrival, not on blood thinners, fatty liver disease seen on imaging - Abdominal cramping/pain- resolved - Diarrhea- C. diff positive, Epid negative. Currently on oral Vanco, was previously on Dificid which has since been discontinued due to pts complaints of nausea. Denies continued nausea. BMs have decrease, and are semi-formed only 1 bowel movement today and one bowel movement yesterday, symptoms are resolving EUS done 09/23/17, unremarkable except for common bile duct mild prominence, pancreas unremarkable, gallbladder unremarkable Anemia probable secondary to chronic disease EtOH, no acute bleeding noted hemoglobin 8.4 (09/19) Pt S/P CT abdomen and pelvis W IV contrast yesterday --> Colitis suspected in the proper clinical setting, most likely infectious or inflammatory. Mildly prominent distal common bile duct and with some focal thickening of the third portion of the duodenum. Duodenal or ampullary mass not excludable. Direct visualization with EGD and ERCP suggested. Severe and diffuse fatty infiltration of the liver. No focal hepatic lesion. Small ascites, right greater than left pleural effusions and diffuse body wall edema/anasarca. Pt remains on Vanco and Mesalamine. She is now agreeable to EGD with ERCP to be done on Friday. Does not think she could tolerate prep for colonoscopy due to weakness. Will also order tumor markers. LFTs continue to improve, labs from today pending. Liver work up pending. Hepatitis panel negative. Iron-58 TIBC-113 %sat 51.1 Ferritin-514. Cardiac stress test negative C. difficile symptoms resolving, continues on vancomycin 125 mg by mouth, Asacol ordered the patient is refusing PLAN - Increase activity - diet soft foods -Continue vancomycin by mouth -Monitor for any acute bleeding or abdominal pain -Monitor labs - supportive care -OK from GI standpoint to go to rehabilitation, if patient has any issues can consult again pt seen by myself and Dr Ngo and this note is written on his behalf (Joaquina Little) Physician Comments Patient seen and examined Agree with above Continue current supportive care Monitor labs Continue C. difficile treatment for at least another 2 weeks Follow-up with GI post discharge Okay for discharge (Mehdi Ngo MD) Joaquina Little Sep 24, 2017 14:51 Mehdi Ngo MD Sep 24, 2017 21:39
== END 2017-09-24 19:12 | DRG 640 ==
LOC: NEPC 11:50 → NEDA 16:20 → HIMN 21:45 → N04B 09-13 18:26
PROVIDERS: ADMIT Hospitalist; ATTEND Family Medicine
PROC: BD47ZZZ Ultrasonography of Gastrointestinal Tract (ICD-10-PCS; 2017-09-23)
PROC: 0DJ08ZZ Inspection of Upper Intestinal Tract, Via Natural or Artificial Opening Endoscopic (ICD-10-PCS; principal; 2017-09-23 15:39)
DX: E87.1 Hypo-osmolality and hyponatremia (principal); J18.9 Pneumonia, unspecified organism; E86.0 Dehydration; A41.9 Sepsis, unspecified organism; J90 Pleural effusion, not elsewhere classified; E87.2 Acidosis; A04.72 Enterocolitis due to Clostridium difficile, not specified as recurrent; E46 Unspecified protein-calorie malnutrition; D68.9 Coagulation defect, unspecified; Z68.1 Body mass index [BMI] 19.9 or less, adult; J44.0 Chronic obstructive pulmonary disease with (acute) lower respiratory infection; J44.1 Chronic obstructive pulmonary disease with (acute) exacerbation; I95.9 Hypotension, unspecified; D69.59 Other secondary thrombocytopenia; K76.0 Fatty (change of) liver, not elsewhere classified; E87.6 Hypokalemia; R53.1 Weakness; F17.210 Nicotine dependence, cigarettes, uncomplicated; R60.1 Generalized edema; D63.8 Anemia in other chronic diseases classified elsewhere; E83.39 Other disorders of phosphorus metabolism; R07.89 Other chest pain; R13.10 Dysphagia, unspecified; R63.4 Abnormal weight loss; E88.09 Other disorders of plasma-protein metabolism, not elsewhere classified; E16.2 Hypoglycemia, unspecified; M19.90 Unspecified osteoarthritis, unspecified site; R53.81 Other malaise
CPT/HCPCS: 36600; 43259; 71045; 74177; 76705; 78452; 80048; 80053; 80074; 80076; 80307; 81001; 82103; 82105; 82140; 82378; 82390; 82550; 82607; 82728; 82746; 82784; 82805; 82948; 83516; 83520; 83540; 83550; 83605; 83690; 83735; 83880; 84100; 84132; 84145; 84155; 84443; 84484; 85007; 85025; 85027; 85610; 85730; 86038; 86255; 86301; 86355; 86357; 86359; 86360; 86703; 87040; 87449; 87493; 87641; 87804; 93005; 93017; 93306; 93970; 94640; 96361; 96365; 96375; A9502; J0692; J1100; J1650; J2250; J2370; J2405; J2543; J2710; J2785; J3010; J3370; J3475; J3480; J7042; J7050; J7613; Q9963; Q9967

== ENCOUNTER 2017-12-09 11:03 | Inpatient (IN) | payer OTHER, MEDICARE ==
[~2017-12-09] VITALS: Ht 165.1 cm; Wt 44.0 kg
[2017-12-09] VITALS (8 sets, daily range): BP systolic 111–132; BP diastolic 56–80; PULSE 69–132; RESP 18–22; TEMP 97.7–97.9; O2SAT 95–99
[~2017-12-09 11:03] MED LIST changes: +CALC500 PO; -FLUTI110I INH; +FOLI1TAB6 PO; -LEVO750T3 PO; +MEGE40TA PO; +MESA1TAB2 PO; -PRED20 PO; -SPIRCAP INH; +VANC125C3 PO
[2017-12-09] MEDS ORDERED: RESP: ALBUTEROL 2.5 MG/IPRATROPIUM 0.5 MG NEB (SCH) INH ONE (11:45)
[2017-12-09] MEDS ORDERED: SODIUM CHLORIDE 0.9% FLUSH 10 ML FLUSH IVF PRN (11:45)
[2017-12-09] MEDS ORDERED: SODIUM CHLOR 0.9% 1000 ML INJ 1,000 ML IV ONE (11:45)
--- NOTE | 2017-12-09 12:08 | RADRPT ---
EXAM DATE/TIME: 12/09/2017 11:45 [facility] COMPARISON: CHEST SINGLE AP, September 17, 2017, 15:22. INDICATIONS : Cough and shortness of breath. MEDICAL HISTORY : Chronic obstructive pulmonary disease. SURGICAL HISTORY : Tubal ligation. Hip replacement. ENCOUNTER: Initial ACUITY: 1 day PAIN SCORE: 0/10 LOCATION: Bilateral chest FINDINGS: A single view of the chest demonstrates the lungs to be symmetrically aerated without evidence of mas s, infiltrate or effusion. The cardiomediastinal contours are unremarkable. Osseous structures are intact. There are bilateral old healed rib fractures. There is mild to moderate scoliosis. CONCLUSION: No acute disease. There is no evidence of pneumonia. Kolby Love MD on December 09, 2017 at 12:06 Board Certified Radiologist. This report was verified electronically.
--- NOTE | 2017-12-09 12:24 | PD ---
HPI Chief Complaint: GI Complaint Time Seen by Provider: 11:27 Travel History International Travel<30 days: No Contact w/Intl Traveler<30days: No Traveled to known affect area: No History of Present Illness HPI This 66-year-old woman presents emerged from complaining of diarrhea weakness and tiredness. She was admitted to the hospital beginning of September where she had C. difficile pneumonia and dehydration. She was found to be malnourished during that time as well. She [facility] to a [facility] facility for some time and then has been at home for the past month or so. She did well until for the past week she started developing copious watery stools again. Some abdominal cramping. No fevers. Feels very sick and tired and fatigued. Went to her primary doctor today and was referred to the ED because of her symptoms and rapid heart rate. History Past Medical History Narrative Medical COPD, on home oxygen Lupus Social History Alcohol Use: Yes ("ONCE IN AWHILE") Tobacco Use: Yes Allergies-Medications (Allergen,Severity, Reaction): Coded Allergies: No Known Allergies (Verified Allergy, Unknown, 12/09/17) Reported Meds & Prescriptions Reported Meds & Active Scripts Active Folic Acid 1 Mg Tablet 1 Mg PO DAILY Megestrol (Megestrol Acetate) 40 Mg Tab 40 Mg PO Q12HR Mesalamine DR (Mesalamine) 800 Mg Tab 1,600 Mg PO Q8HR Oyster Calcium (Oyster Shell) 500 Mg Calcium (1250 Mg) Tab 500 Mg PO DAILY Roller Walker (Misc. Devices) 1 Mis Mis Ea .ROUTE NOW With seat if possible. Ventolin Hfa 18 GM Inh (Albuterol Sulfate) 90 Mcg/Act Aer 2 Puff INH Q4-6H PRN 30 Days Review of Systems Except as stated in HPI: all other systems reviewed are Neg Physical Exam Narrative GENERAL: Frail 66-year-old woman, appears unwell SKIN: Focused skin assessment warm/dry. HEAD: Atraumatic. Normocephalic. EYES: Pupils equal and round. No scleral icterus. No injection or drainage. ENT: No nasal bleeding or discharge. Mucous membranes pink and moist. NECK: Trachea midline. No JVD. CARDIOVASCULAR: Heart rate rapid. No murmurs. RESPIRATORY: Rales with some wheezing in the posterior lung mendoza. Good air movement. GASTROINTESTINAL: Abdomen soft, non-tender, nondistended. Hepatic and splenic margins not palpable. MUSCULOSKELETAL: No obvious deformities. Decreased muscle bulk. NEUROLOGICAL: Awake and alert. No obvious cranial nerve deficits. Motor grossly within normal limits. Normal speech. PSYCHIATRIC: Appropriate mood and affect; insight and judgment normal. Data Data Last Documented VS Vital Signs Date Time Temp Pulse Resp B/P (MAP) Pulse Ox O2 Delivery O2 Flow Rate FiO2 12/09/17 12:57 95 Room Air 12/09/17 12:57 109 20 12/09/17 11:05 97.9 Orders Orders Complete Blood Count With Diff (12/09/17 11:37) Comprehensive Metabolic Panel (12/09/17 11:37) Urinalysis - C+S If Indicated (12/09/17 11:37) Influenzae A/B Antigen (12/09/17 11:37) Iv Access Insert/Monitor (12/09/17 11:37) Ecg Monitoring (12/09/17 11:37) Oximetry (12/09/17 11:37) Oxygen Administration (12/09/17 11:37) Chest, Single Ap (12/09/17 11:37) Sodium Chloride 0.9% Flush (Ns Flush) (12/09/17 11:45) Albuterol-Ipratropium Neb (Duoneb Neb) (12/09/17 11:45) Lactic Acid Sepsis Protocol (12/09/17 11:37) Blood Culture (12/09/17 11:37) Sodium Chlor 0.9% 1000 Ml Inj (Ns 1000 M (12/09/17 11:45) C Diff Toxin Pcr (12/09/17 11:39) Enteric Path (Stool) (12/09/17 11:39) Isolation 08,20 (12/09/17 12:24) Metronidazole (Flagyl) (12/09/17 13:00) Labs Laboratory Tests Test 12/09/17 11:50 White Blood Count 16.8 TH/MM3 Red Blood Count 4.02 MIL/MM3 Hemoglobin 11.6 GM/DL Hematocrit 35.6 % Mean Corpuscular Volume 88.6 FL Mean Corpuscular Hemoglobin 28.8 PG Mean Corpuscular Hemoglobin Concent 32.5 % Red Cell Distribution Width 19.7 % Platelet Count 56 TH/MM3 Mean Platelet Volume 8.2 FL Neutrophils (%) (Auto) 94.9 % Lymphocytes (%) (Auto) 3.4 % Monocytes (%) (Auto) 1.6 % Eosinophils (%) (Auto) 0.0 % Basophils (%) (Auto) 0.1 % Neutrophils # (Auto) 15.9 TH/MM3 Lymphocytes # (Auto) 0.6 TH/MM3 Monocytes # (Auto) 0.3 TH/MM3 Eosinophils # (Auto) 0.0 TH/MM3 Basophils # (Auto) 0.0 TH/MM3 CBC Comment AUTO DIFF Differential Comment AUTO DIFF CONFIRMED Toxic Granulation 1+ Platelet Estimate LOW Platelet Morphology Comment NORMAL Ovalocytes 1+ Blood Urea Nitrogen 8 MG/DL Creatinine 0.47 MG/DL Random Glucose 111 MG/DL Total Protein 6.4 GM/DL Albumin 3.0 GM/DL Calcium Level 8.9 MG/DL Alkaline Phosphatase 130 U/L Aspartate Amino Transf (AST/SGOT) 58 U/L Alanine Aminotransferase (ALT/SGPT) 21 U/L Total Bilirubin 0.6 MG/DL Sodium Level 131 MEQ/L Potassium Level 3.2 MEQ/L Chloride Level 91 MEQ/L Carbon Dioxide Level 25.4 MEQ/L Anion Gap 15 MEQ/L Estimat Glomerular Filtration Rate 133 ML/MIN Lactic Acid Level 2.0 mmol/L [facility] Medical Decision Making Medical Screen Exam Complete: Yes Emergency Medical Condition: Yes Interpretation(s) LABS: CBC remarkable for white count of 16.8 thousand CMP is unremarkable Lactate 2.0 Chest x-ray: Negative. Differential Diagnosis C. difficile, dehydration, asthma, infection, electrolyte abnormality, other Narrative Course Medical decision making INITIAL: This is a 66-year-old woman who appears very physically deconditioned. She has diarrhea with recent history of C. difficile. She appears dehydrated rapid heart rate. Will give IV fluids, labs, x-ray, recheck C. difficile, likely admission for further evaluation and treatment. Physician Communication Physician Communication Spoke with the family medicine admitting team, they will admit patient. Diagnosis Primary Impression: C. difficile diarrhea Additional Impressions: Dehydration Physical deconditioning Admitting Information Admitting Physician Requests: it Reece Cevallos MD December 09, 2017 12:24
[2017-12-09 12:28] LABS: AUTOMATED NEUTROPHIL # 15.9 TH/MM3 (1.8-7.7); BASOPHIL % 0.1 % (0.0-2.0); HEMATOCRIT 35.6 % (35.0-46.0); HEMOGLOBIN 11.6 GM/DL (11.6-15.3); LYMPH % 3.4 % (9.0-44.0); LYMPHOCYTE # 0.6 TH/MM3 (1.0-4.8); MEAN CELL VOLUME 88.6 FL (80.0-100.0); MEAN CORPUSCULAR HEMOGLOBIN 28.8 PG (27.0-34.0); MEAN CORPUSCULAR HGB CONC 32.5 % (32.0-36.0); MEAN PLATELET VOLUME 8.2 FL (7.0-11.0); MONO % 1.6 % (0.0-8.0); MONOCYTE # 0.3 TH/MM3 (0-0.9); NEUT % 94.9 % (16.0-70.0); PLATELET COUNT 56 TH/MM3 (150-450); RED BLOOD COUNT 4.02 MIL/MM3 (4.00-5.30); RED CELL DISTRIBUTION WIDTH 19.7 % (11.6-17.2); WHITE BLOOD COUNT 16.8 TH/MM3 (4.0-11.0)
[2017-12-09 12:43] LABS: ALT (GPT) 21 U/L (10-53)
[2017-12-09 12:45] LABS: ALKALINE PHOSPHATASE 130 U/L (45-117); AST (GOT) 58 U/L (15-37); BICARBONATE 25.4 MEQ/L (21.0-32.0); BLOOD UREA NITROGEN 8 MG/DL (7-18); CALCIUM 8.9 MG/DL (8.5-10.1); CHLORIDE 91 MEQ/L (98-107); CREATININE 0.47 MG/DL (0.50-1.00); GLOMERULAR FILTRATION RATE 133 ML/MIN (>89); GLUCOSE,RANDOM 111 MG/DL (74-106); SODIUM (NA) 131 MEQ/L (136-145); TOTAL BILIRUBIN ADULT 0.6 MG/DL (0.2-1.0); TOTAL PROTEIN 6.4 GM/DL (6.4-8.2)
[2017-12-09] MEDS ORDERED: metroNIDAZOLE 500 MG TAB PO ONE (13:00)
[2017-12-09 13:01] LABS: OVALOCYTES 1+ (NORMAL); TOXIC GRANULATION 1+ (NORMAL)
--- NOTE | 2017-12-09 14:51 | HHI.HP ---
[facility] Service Family Medicine Primary Care Physician Michael Contreras MD Admission Diagnosis C. difficile diarrhea, dehydration, lethargy Diagnoses: International Travel<30 Days: No Contact w/Intl Traveler<30days: No Known Affected Area: No History of Present Illness 66 y/o F w/hx of COPD presenting w/diarrhea. Dr. Contreras is the primary care provider, sent patient to hospital today. Was at clinic for follow-up from last hospitalization on Sep 11. Was in the hospital for a month for pneumonia and C.diff infection. Was discharged to [facility], had C.Diff twice there which was treated. Has been in a wheelchair since [facility] for poor balance due to weakness. Was there for a couple weeks; afterwards, has been at home for a month and has not had any antibiotics during this time. One week ago, started feeling tired, poor appetite, and worsening diarrhea. Has not eaten in two days because of lack of appetite. Diarrhea is non bloody and is brown, sometimes jimenez. Has been having diarrhea every hour and is explosive. Having lower abdominal cramps that resolve with diarrhea and laying down. No fevers, no recently undercooked food, no recent travel, no vomiting, recent illness/flu-like symptoms, constipation, fevers/chills. (Lolita Coe MD R1) History of Present Illness 66-year-old female presenting to the emergency department from home with a chief complaint of abdominal pain and diffuse diarrhea. She has a history of recent hospitalization for pneumonia and subsequent C. difficile diarrhea infection for which she was treated upon discharge. At her snf facility, she has apparently been treated at least one if not twice more for C. difficile infection with Flagyl and subsequently oral vancomycin. She has been home for the last month and has been doing well except for the last several days , when she developed diffuse diarrhea and decreased oral intake as well as decreased appetite. She denies any fevers or chills, she denies any nausea or vomiting, she denies any recent flulike illnesses. (Cuba Arora MD) Review of Systems Constitutional: DENIES: Fever Endocrine: DENIES: Polydipsia, Polyuria Eyes: DENIES: Eye pain, Vision loss Ears, nose, mouth, throat: COMPLAINS OF: Nasal discharge, DENIES: Throat pain Respiratory: COMPLAINS OF: Cough (chronic), DENIES: Wheezing, Shortness of breath Cardiovascular: DENIES: Chest pain, Lower Extremity Edema Gastrointestinal: DENIES: Bloody stools, Constipation, Nausea Genitourinary: DENIES: Urinary incontinence, Urgency Musculoskeletal: DENIES: Joint pain, Muscle aches Integumentary: DENIES: Abnormal pigmentation Hematologic/lymphatic: DENIES: Bruising Immunologic/allergic: DENIES: Eczema Neurologic: COMPLAINS OF: Paresthesias (in the feet, feel cold), DENIES: Headache, Tremor Psychiatric: DENIES: Confusion (Lolita Coe MD R1) Past Family Social History Past Medical History COPD - on home O2 Past Surgical History Varicose veins hip surgery 30 years ago (Lolita Coe MD R1) Allergies: Coded Allergies: No Known Allergies (Verified Allergy, Unknown, 12/09/17) Family History Mom: DM Dad:cancer Social History Smoke 3 cigarettes a day, no substance abuse Several alcoholic beverages daily Hx of alcohol abuse Lives at home with who works all day. 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 Uses wheelchair at home. Sees physical therapy at home. (Lolita Coe MD R1) Physical Exam Vital Signs Vital Signs Date Time Temp Pulse Resp B/P (MAP) Pulse Ox O2 Delivery O2 Flow Rate FiO2 12/09/17 13:30 112 18 111/56 (74) 99 Nasal Cannula 3.00 12/09/17 12:57 95 Room Air 12/09/17 12:57 109 20 95 12/09/17 11:24 22 12/09/17 11:24 115 22 129/71 (90) 99 Room Air 12/09/17 11:05 97.9 132 19 125/69 (87) 99 Physical Exam GENERAL: This is a thin, elderly lady laying quietly in bed, appears uncomfortable. On 3L NC O2 satting >94%. SKIN: .Cool and dry. HEAD: Atraumatic. Normocephalic. EYES: Extraocular motions intact. No scleral icterus. No injection or drainage. ENT: Nose without bleeding, purulent drainage or septal hematoma. Throat without erythema, tonsillar hypertrophy or exudate. Uvula midline. Airway patent. Mucous membranes moist. NECK: Trachea midline. CARDIOVASCULAR: Regular rate and rhythm without murmurs, gallops, or rubs. RESPIRATORY: Clear to auscultation. Breath sounds equal bilaterally, mildly coarse. GASTROINTESTINAL: Abdomen soft and diffusely tender. Mild guarding noted on exam. No organomegaly. MUSCULOSKELETAL: Extremities without clubbing, cyanosis, or edema. No joint tenderness, effusion, or edema noted. No calf tenderness. NEUROLOGICAL: Awake and alert. Cranial nerves II through XII intact. Normal speech. Normal range of motion. Motor strength not assessed. Laboratory Laboratory Tests Test 12/09/17 11:50 White Blood Count 16.8 Red Blood Count 4.02 Hemoglobin 11.6 Hematocrit 35.6 Mean Corpuscular Volume 88.6 Mean Corpuscular Hemoglobin 28.8 Mean Corpuscular Hemoglobin Concent 32.5 Red Cell Distribution Width 19.7 Platelet Count 56 Mean Platelet Volume 8.2 Neutrophils (%) (Auto) 94.9 Lymphocytes (%) (Auto) 3.4 Monocytes (%) (Auto) 1.6 Eosinophils (%) (Auto) 0.0 Basophils (%) (Auto) 0.1 Neutrophils # (Auto) 15.9 Lymphocytes # (Auto) 0.6 Monocytes # (Auto) 0.3 Eosinophils # (Auto) 0.0 Basophils # (Auto) 0.0 CBC Comment AUTO DIFF Differential Comment AUTO DIFF CONFIRMED Toxic Granulation 1+ Platelet Estimate LOW Platelet Morphology Comment NORMAL Ovalocytes 1+ Blood Urea Nitrogen 8 Creatinine 0.47 Random Glucose 111 Total Protein 6.4 Albumin 3.0 Calcium Level 8.9 Alkaline Phosphatase 130 Aspartate Amino Transf (AST/SGOT) 58 Alanine Aminotransferase (ALT/SGPT) 21 Total Bilirubin 0.6 Sodium Level 131 Potassium Level 3.2 Chloride Level 91 Carbon Dioxide Level 25.4 Anion Gap 15 Estimat Glomerular Filtration Rate 133 Lactic Acid Level 2.0 Date/Time Source Procedure Growth Status 12/09/17 12:00 Blood Peripheral Aerobic Blood Culture Pending Received 12/09/17 12:00 Blood Peripheral Anaerobic Blood Culture Pending Received 12/09/17 12:30 Stool Stool Pending Received 12/09/17 12:30 Nasal Washing Influenza Types A,B Antigen (CHARMAINE) - Final NEGATIVE FOR FLU A AND B ANTIGEN.... Complete (Lolita Coe MD R1) Result Diagram: 12/09/17 1150 12/09/17 1150 Imaging Last Impressions Chest X-Ray 12/09/17 1137 Signed Impressions: Service Date/Time: Saturday, December 09, 2017 11:45 - CONCLUSION: No acute disease. There is no evidence of pneumonia. Kolby Love MD (Lolita Coe MD R1) Lesley VTE Risk Assessment Lesley VTE Risk Assessment: Mod/High Risk (score >= 2) (Lolita Coe MD R1) Assessment and Plan Assessment and Plan Patient is a 66-year-old female with history of 3 recent episodes of C. difficile presenting with subsequent relapse of C. difficile. Plan to start patient on vancomycin and IV fluids. Infectious disease was consulted. Code Status Full Discussed Condition With Dr. Arora (Lolita Coe MD R1) Attending Attestation THIS CASE WAS DISCUSSED WITH THE RESIDENT PHYSICIANS. I HAVE REVIEWED THE RECORD AND AGREE WITH THE ABOVE NOTE AND PLAN OF CARE WAS DISCUSSED. I HAVE AUTHORIZED THE ORDER FOR ADMISSION TO AN IN-PATIENT STATUS. Patient was examined by myself after discussion with the resident physician and I have read the above H&P and reviewed this with the patient I was involved in all medical decision making for this patient and agree with the H&P as documented by the resident physician Cuba Arora MD (Cuba Arora MD) Problem List: (1) C. difficile diarrhea ICD Codes: A04.72 - Enterocolitis due to Clostridium difficile, not specified as recurrent Status: Acute Plan: Hx of recurrent C. diff (3 prior treated episodes) WBC 16.8 w/left shift (+toxic granulation), tachycardia Risk factors of advanced age and abx use in the last 3 months Hemoccult positive Received Flagyl 1 in the ED Start vancomycin 125 mg p.o. every 6 hours for 7 days, will be tapered over a course of 35 days Infectious disease consulted Contact precautions Stool studies and stool cultures pending Blood cultures pending Abdominal x-ray ordered (2) Hypokalemia ICD Codes: E87.6 - Hypokalemia Status: Acute Plan: Potassium 3.2 today Likely secondary to diarrhea and/or dehydration IV fluids at maintenance dose of 84 MLS per hour, added 20 meq. potassium chloride per liter Potassium repleted with K-Lyte 25 Meq (patient does not like to swallow large pills) BMP ordered for 8 PM tonight to recheck electrolyte levels Plan to switch to normal saline once diarrhea decreases in frequency or resolves (3) COPD (chronic obstructive pulmonary disease) ICD Codes: J44.9 - Chronic obstructive pulmonary disease, unspecified Status: Chronic Plan: Chronic Patient uses an albuterol inhaler/nebulizer at home Albuterol nebulizer 2.5 mg scheduled for twice daily Con't NC O2 (4) Alcohol abuse ICD Codes: F10.10 - Alcohol abuse, uncomplicated Status: Chronic Plan: Per patient's PCP, patient drinks several alcoholic beverages every day Start CIWA protocol Order rally pack (5) Smoker ICD Codes: F17.200 - Nicotine dependence, unspecified, uncomplicated Status: Chronic Plan: Nicotine patches (6) FEN Plan: Fluids: IV maintenance Electrolytes: Replace as needed. Provided K-Lyte 25 mEq 1, will provide IV fluids with potassium supplementation (20 meq per liter) Nutrition: Mechanical soft diet DVT prophylaxis: Indicated, Lovenox daily and SCDs (Lolita Coe MD R1) Physician Certification 2 Midnight Certification Type: Admission for Inpatient Services Order for Inpatient Services The services are ordered in accordance with Medicare regulations or non- Medicare payer requirements, as applicable. In the case of services not specified as inpatient-only, they are appropriately provided as inpatient services in accordance with the 2-midnight benchmark. Estimated LOS (days): 2 2 days is the estimated time the patient will need to remain in the hospital, assuming treatment plan goals are met and no additional complications. Post-Hospital Plan: Not yet determined (Lolita Coe MD R1) Problem Qualifiers (1) COPD (chronic obstructive pulmonary disease): Qualified Codes: J44.9 - Chronic obstructive pulmonary disease, unspecified Lolita Coe MD R1 December 09, 2017 14:51 Cuba Arora MD December 09, 2017 22:53
[2017-12-09] MEDS ORDERED: POTASSIUM CHLORIDE INJ 0.02 MEQ in SODIUM CHLOR 0.9% 1000 ML INJ 1 ML IV SCH (14:53)
[2017-12-09] MEDS ORDERED: ACETAMINOPHEN 325 MG TAB PO PRN (15:00)
[2017-12-09] MEDS ORDERED: ONDANSETRON HCL 4 MG/2 ML VIAL IV PUSH PRN (15:00)
[2017-12-09] MEDS ORDERED: LORazepam 1 MG TAB PO PRN (15:00)
[2017-12-09] MEDS ORDERED: LORazepam 2 MG TAB PO PRN (15:00)
[2017-12-09] MEDS ORDERED: LORazepam 2 MG/ML VIAL IV PUSH PRN ×4 (15:00)
[2017-12-09] MEDS ORDERED: FLUMAZENIL 0.5 MG/5 ML VIAL IV PUSH PRN (15:00)
[2017-12-09] MEDS ORDERED: Vancomycin Consult Pharmacy 1 EA OTHER SCH (15:00)
[2017-12-09] MEDS ORDERED: SODIUM CHLORIDE 0.9% FLUSH 10 ML FLUSH IV FLUSH PRN (15:00)
[2017-12-09] MEDS ORDERED: VANCOMYCIN 500 MG VIAL (FOR ORAL USE ONLY) PO SCH (16:00)
[2017-12-09] MEDS ORDERED: NS + KCL 20 MEQ INJ 1,000 ML IV SCH (16:30)
[2017-12-09] MEDS ORDERED: VANCOMYCIN INJ 750 MG in SODIUM CHLOR 0.9% 250 ML INJ 250 ML IV SCH (17:00)
[2017-12-09] MEDS ORDERED: POTASSIUM CHLORIDE 25 MEQ EFFERVESCENT TAB PO ONE ×2 (17:00→23:00)
[2017-12-09] MEDS: VANCOMYCIN 500 MG VIAL (FOR ORAL USE ONLY) PO SCH ×2 (17:09→22:21)
[2017-12-09] MEDS: ENOXAPARIN SODIUM 40 MG/0.4 ML SYRINGE SQ SCH (17:10)
[2017-12-09] MEDS: SODIUM CHLORIDE 0.9% FLUSH 10 ML FLUSH IV FLUSH SCH (17:11)
[2017-12-09] MEDS: THIAMINE HCL 100 MG TAB PO SCH (17:19)
[2017-12-09] MEDS: MULTIVITAMINS/MINERALS THERAPEUTIC TAB PO SCH (17:19)
[2017-12-09] MEDS: FOLIC ACID 1 MG TAB PO SCH (17:19)
[2017-12-09] MEDS: NICOTINE 21 MG/24 HR PATCH T-DERMAL SCH (17:21)
--- NOTE | 2017-12-09 18:42 | MB ---
cc: Ez Caballero MD DATE: 12/09/2017 REQUESTING PHYSICIAN: Dr. Saxena REASON FOR CONSULTATION: History of 3 recent episodes of C. difficile, treated, presenting with recurrent C. difficile. HISTORY OF PRESENT ILLNESS: This is a 66-year-old white female who has been treated for C. difficile infection previously. The patient was last treated for C. difficile in September and she was discharged on 10/04 to a half-way facility and she received a course of oral vancomycin. She was discharged from the nursing facility to home and the mentioned that she was doing well, without diarrhea for about 2-3 weeks. She subsequently developed frequent diarrhea about 8 days ago. She saw her primary care physician and was sent to the emergency department for evaluation. The C. difficile toxin was repeated and it is positive. She has an elevated white blood cell count. She continues to have profuse diarrhea. She states that she has diarrhea almost every hour. She reports that the stools fluctuate between being watery [place] to pudding consistency. She notes that she gets abdominal cramping. She had 1 episode of vomiting a few days ago. The patient has not been eating for the past few days. She states that when she did not have the diarrhea at home, she was eating quite a bit. The attest to that. She tells me that she has no appetite currently. Blood cultures are pending. Prior CT scan of the abdomen on last hospitalization, on 09/18, showed colitis suspected with wall thickening and robust mucosal enhancement of the colon. There is also severe and diffuse fatty of the liver. The patient's states that she drinks alcohol daily. She denies seeing any blood in the stools. PAST MEDICAL HISTORY: COPD, history of varicose vein surgery, history of left hip surgery, tubal ligation, C. difficile colitis. ALLERGIES: NO KNOWN DRUG. ALLERGIES: NO KNOWN DRUG ALLERGIES. MEDICATIONS: Vancomycin p.o., Lovenox, nicotine patch, folic acid, vancomycin IV, thiamine, multivitamin. SOCIAL HISTORY: The patient has been for 20 years. Positive tobacco use, half a pack of cigarettes a day. Positive alcohol use in the form of whiskey daily. No illicit drugs. FAMILY HISTORY: Noncontributory. REVIEW OF SYSTEMS: Pertinents mentioned in history of present illness. Otherwise, negative. PHYSICAL EXAMINATION: GENERAL: This is a cachectic female who is lying in bed in no acute distress. She is awake and alert and oriented. VITAL SIGNS: Temperature 97.8, BP 132/62, respirations 18, heart rate 100. HEENT: The head is atraumatic. Extraocular movements are grossly intact. No icterus. Oropharynx, moist mucosa. No visible lesions. No thrush. The patient is edentulous. NECK: Supple, without adenopathy or swelling. LUNGS: Clear breath sounds. HEART: Regular S1 and S2. No murmurs, rubs or gallops. ABDOMEN: Bowel sounds diminished, flat, soft, mild tenderness at the periumbilical area. No rebound tenderness. RECTAL: Not performed. EXTREMITIES: No clubbing, no cyanosis or edema. Muscle wasting is apparent at the extremities. SKIN: No diffuse rash. NEUROLOGIC: No gross focal findings. PSYCHIATRIC: The patient is calm and cooperative. LABORATORY DATA: WBC 16.8, platelets 56, 94% neutrophils, hemoglobin 11.6, creatinine 0.47, BUN 8. Sodium 131, AST 58, ALT 21, alkaline phosphatase 130. IMPRESSION: 1. Recurrent Clostridium difficile colitis. The patient with history of Clostridium difficile, which had been treated in the past. Testing of the stools is positive for Clostridium difficile again today and a strain appears to be the [id number] strain. 2. Thrombocytopenia. Questionable etiology, probably related to alcohol. 3. Leukocytosis secondary to Clostridium difficile. RECOMMENDATIONS: 1. Discontinue intravenous vancomycin. 2. Continue oral vancomycin. I agree with the plans for long-term vancomycin taper. 3. Monitor the stool output to determine if she responds appropriately. Thank you for this consultation. I will follow the patient along with you. MD LINDSAY Salazar/CHARLES , 06:08 PM , 06:41 PM
[2017-12-09] MEDS: RESP: ALBUTEROL 2.5 MG/3 ML NEB (SCH) NEB (21:44)
[2017-12-09 22:11] LABS: BICARBONATE 28.8 MEQ/L (21.0-32.0); CREATININE 0.31 MG/DL (0.50-1.00)
[2017-12-09] MEDS ORDERED: NS + KCL 40 MEQ INJ 1,000 ML IV SCH (23:00)
[2017-12-10] VITALS (9 sets, daily range): BP systolic 103–146; BP diastolic 52–80; PULSE 62–104; RESP 16–20; TEMP 95.8–98.7; O2SAT 95–100
[2017-12-10] MEDS ORDERED: MAGNESIUM SULFATE 1 GM PREMIX 100 ML IV ONE
[2017-12-10 00:57] LABS: BLOOD, URINE SMALL (NEG); GLUCOSE,URINE NEG (NEG); KETONE, URINE 40 mg/dL (NEG); MUCUS URINE FEW /lpf (OCC); NITRITE,URINE NEG (NEG); RENAL EPITHELIAL CELLS <1 /hpf; URINE COLOR YELLOW (YELLW/STRAW); URINE LEUKOCYTE ESTERASE TRACE (NEG)
[2017-12-10 01:00] LABS: BILIRUBIN, URINE NEG (NEG)
[2017-12-10 03:43] LABS: AUTOMATED NEUTROPHIL # 7.9 TH/MM3 (1.8-7.7); BASOPHIL % 0.2 % (0.0-2.0); EOSINOPHIL % 0.4 % (0.0-4.0); HEMATOCRIT 27.3 % (35.0-46.0); LYMPH % 11.9 % (9.0-44.0); LYMPHOCYTE # 1.1 TH/MM3 (1.0-4.8); MEAN CELL VOLUME 88.9 FL (80.0-100.0); MEAN CORPUSCULAR HEMOGLOBIN 29.4 PG (27.0-34.0); MEAN CORPUSCULAR HGB CONC 33.1 % (32.0-36.0); MEAN PLATELET VOLUME 8.2 FL (7.0-11.0); MONO % 3.6 % (0.0-8.0); MONOCYTE # 0.3 TH/MM3 (0-0.9); NEUT % 83.9 % (16.0-70.0); PLATELET COUNT 41 TH/MM3 (150-450); RED BLOOD COUNT 3.07 MIL/MM3 (4.00-5.30); RED CELL DISTRIBUTION WIDTH 19.9 % (11.6-17.2); WHITE BLOOD COUNT 9.5 TH/MM3 (4.0-11.0)
[2017-12-10 04:16] LABS: ALBUMIN 2.3 GM/DL (3.4-5.0); ALKALINE PHOSPHATASE 92 U/L (45-117); ALT (GPT) 15 U/L (10-53); AST (GOT) 46 U/L (15-37); BICARBONATE 26.5 MEQ/L (21.0-32.0); BLOOD UREA NITROGEN 6 MG/DL (7-18); CALCIUM 7.9 MG/DL (8.5-10.1); CHLORIDE 99 MEQ/L (98-107); CREATININE LESS THAN 0.15 MG/DL (0.50-1.00); GLOMERULAR FILTRATION RATE 495 ML/MIN (>89); GLUCOSE,RANDOM 83 MG/DL (74-106); MAGNESIUM 1.7 MG/DL (1.5-2.5); SODIUM (NA) 135 MEQ/L (136-145); TOTAL BILIRUBIN ADULT 0.6 MG/DL (0.2-1.0)
[2017-12-10] MEDS: VANCOMYCIN 500 MG VIAL (FOR ORAL USE ONLY) PO SCH ×4 (05:15→21:29)
[2017-12-10] MEDS ORDERED: NS + KCL 20 MEQ INJ 1,000 ML IV SCH (07:30)
[2017-12-10] MEDS: RESP: ALBUTEROL 2.5 MG/3 ML NEB (SCH) NEB ×2 (08:00→20:54)
[2017-12-10] MEDS: THIAMINE HCL 100 MG TAB PO SCH (08:48)
[2017-12-10] MEDS: MULTIVITAMINS/MINERALS THERAPEUTIC TAB PO SCH (08:48)
[2017-12-10] MEDS: SODIUM CHLORIDE 0.9% FLUSH 10 ML FLUSH IV FLUSH SCH ×2 (08:48→21:00)
[2017-12-10] MEDS: NICOTINE 21 MG/24 HR PATCH T-DERMAL SCH (08:48)
[2017-12-10] MEDS: FOLIC ACID 1 MG TAB PO SCH (08:48)
[2017-12-10] MEDS: REMOVE OLD PATCH T-DERMAL SCH (08:48)
--- NOTE | 2017-12-10 10:11 | RADRPT ---
EXAM DATE/TIME: 12/10/2017 09:48 [place] COMPARISON: No previous studies available for comparison. INDICATIONS : Diarrhea MEDICAL HISTORY : Chronic obstructive pulmonary disease. SURGICAL HISTORY : Hip replacement ENCOUNTER: Initial ACUITY: 1 day PAIN SCORE: 0/10 LOCATION: Abdomen FINDINGS: A single erect view of the abdomen demonstrates the lower lungs to be clear. No evidence of free int raperitoneal gas. The visualized bowel loops are unremarkable. There is scoliosis with curvature of the lower thoracic and upper lumbar spine to the right. There is an old healed right-sided rib fractu res. CONCLUSION: No acute disease. Cuba Small MD on December 10, 2017 at 10:08 Board Certified Radiologist. This report was verified electronically.
--- NOTE | 2017-12-10 11:03 | HHI.FPPN ---
Subjective Remarks Vitals were within normal limits overnight Patient had 9 bowel movements recorded since yesterday States that she does not notice any improvement since yesterday Is very hungry, adequate p.o. intake (Lolita Coe MD R1) Objective Vitals Vital Signs Date Time Temp Pulse Resp B/P (MAP) Pulse Ox O2 Delivery O2 Flow Rate FiO2 12/10/17 09:24 95 Nasal Cannula 3.00 12/10/17 07:35 98.1 95 19 127/69 (88) 97 12/10/17 04:45 97.3 67 16 120/80 (93) 95 12/10/17 00:30 98.0 68 19 120/65 (83) 97 12/09/17 21:45 99 Nasal Cannula 3.00 12/09/17 20:45 97.7 69 18 128/80 (96) 96 12/09/17 16:37 97.8 100 18 132/62 (85) 98 12/09/17 15:34 74 18 114/72 (86) 99 Nasal Cannula 2.00 12/09/17 13:30 112 18 111/56 (74) 99 Nasal Cannula 3.00 12/09/17 12:57 95 Room Air 12/09/17 12:57 109 20 95 12/09/17 11:24 22 12/09/17 11:24 115 22 129/71 (90) 99 Room Air 12/09/17 11:05 97.9 132 19 125/69 (87) 99 I/O 12/09/17 12/09/17 12/09/17 12/10/17 12/10/17 12/10/17 07:00 15:00 23:00 07:00 15:00 23:00 Intake Total 1000 ml 900 ml 1542 ml Balance 1000 ml 900 ml 1542 ml Intake Oral 900 ml 800 ml IV Total 1000 ml 742 ml # Voids 1 2 # Bowel Movements 3 6 (Lolita Coe MD R1) Result Diagram: 12/10/17 0322 12/10/17 0322 Objective Remarks O. CONSTITUTIONAL/GEN: Thin, elderly lady appearing pale and fatigued resting in bed. EYES: conjunctiva normal, PERRLA, EOMI. ENT: Mouth and pharynx normal. NECK: Supple. LUNGS: clear A-P, respiratory effort is normal. CARDIOVASCULAR: RR without murmur or gallop. No significant edema. GI/ABD: soft without masses, hyperactive bowel sounds. Mild tenderness to palpation in the lower quadrants. : no CVA tenderness NEURO: No focal deficits. Gait is normal SKIN: color normal, no rashes noted. Patient complains of soreness on the lateral aspect of her right foot. There appears to be a red, bony prominence with a healing lesion. No edema, fluctuance, or significant demarcation noted. Appears to be a blister forming. HEME/LYMPH: Some bruising of the extremities noted, however, these appear old MUSC: Normal range of motion PSYCH/MENTAL STATUS: Alert and oriented x 3. (Lolita Coe MD R1) A/P Assessment and Plan Patient is a 66-year-old female with history of 3 recent episodes of C. difficile presenting with subsequent relapse of C. difficile. Vancomycin p.o. and IV fluids started. Potassium has been repleted as needed. Infectious disease agrees with current treatment plan. Discharge Planning Case management consulted, appreciate assistance. Suspect patient may require home health. (Lolita Coe MD R1) Attending Attestation Patient examined independently and case discussed with resident physician I have read the above note and agree with the assessment/plan as discussed with me I was involved in all medical decision making for this patient Cuba Arora MD (Cuba Arora MD) Problem List: (1) C. 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 every 6 hours for 7 days, will be tapered over a course of 35 days Contact precautions Stool studies and stool cultures pending Blood cultures pending (2) Hypokalemia ICD Codes: E87.6 - Hypokalemia Status: Acute Plan: Potassium 3.2 on admission Likely secondary to diarrhea and/or dehydration Patient has been repleted several times overnight Potassium at 3 AM this morning was 4.0 IV fluids at maintenance dose of 84 MLS per hour, added 20 meq. potassium chloride per liter Repeat potassium as needed Plan to switch to normal saline once diarrhea decreases in frequency or resolves (3) COPD (chronic obstructive pulmonary disease) ICD Codes: J44.9 - Chronic obstructive pulmonary disease, unspecified Status: Chronic Plan: Chronic Patient uses an albuterol inhaler/nebulizer at home Albuterol nebulizer 2.5 mg scheduled for twice daily Con't NC O2 (4) Alcohol abuse ICD Codes: F10.10 - Alcohol abuse, uncomplicated Status: Chronic Plan: Per patient's PCP, patient drinks several alcoholic beverages every day On CIWA protocol, scores have been 0 On rally pack (5) Smoker ICD Codes: F17.200 - Nicotine dependence, unspecified, uncomplicated Status: Chronic Plan: Nicotine patches (6) Normocytic anemia ICD Codes: D64.9 - Anemia, unspecified Plan: Hgb 9 from 11.6 May be secondary to blood loss w/diarrhea Will con't to monitor daily CBC. Transfuse as needed. (7) FEN Plan: Fluids: IV maintenance Electrolytes: Repleting PRN Nutrition: Mechanical soft diet DVT prophylaxis: Indicated, Lovenox daily and SCDs (Lolita Coe MD R1) Problem Qualifiers (1) COPD (chronic obstructive pulmonary disease): Qualified Codes: J44.9 - Chronic obstructive pulmonary disease, unspecified Lloita Coe MD R1 December 10, 2017 11:03 Cuba Arora MD December 10, 2017 16:59
[2017-12-10 11:27] LABS: ALBUMIN 2.4 GM/DL (3.4-5.0); AST (GOT) 51 U/L (15-37); BICARBONATE 24.6 MEQ/L (21.0-32.0); BLOOD UREA NITROGEN 5 MG/DL (7-18); CALCIUM 8.3 MG/DL (8.5-10.1); CHLORIDE 99 MEQ/L (98-107); CREATININE 0.24 MG/DL (0.50-1.00); GLOMERULAR FILTRATION RATE 288 ML/MIN (>89); SODIUM (NA) 133 MEQ/L (136-145)
[2017-12-10 11:33] LABS: ALKALINE PHOSPHATASE 96 U/L (45-117); ALT (GPT) 17 U/L (10-53); GLUCOSE,RANDOM 131 MG/DL (74-106); TOTAL BILIRUBIN ADULT 0.6 MG/DL (0.2-1.0); TOTAL PROTEIN 5.2 GM/DL (6.4-8.2)
[2017-12-10] MEDS: NS + KCL 40 MEQ INJ 1,000 ML IV SCH (15:01)
[2017-12-10] MEDS: ENOXAPARIN SODIUM 40 MG/0.4 ML SYRINGE SQ SCH (17:20)
[2017-12-11] VITALS (9 sets, daily range): BP systolic 96–124; BP diastolic 54–69; PULSE 85–104; RESP 17–24; TEMP 96.7–98; O2SAT 95–100
[2017-12-11] MEDS: NS + KCL 40 MEQ INJ 1,000 ML IV SCH ×3 (03:33→18:07)
[2017-12-11] MEDS: VANCOMYCIN 500 MG VIAL (FOR ORAL USE ONLY) PO SCH ×4 (03:35→21:02)
[2017-12-11] MEDS ORDERED: NS + KCL 40 MEQ INJ 1,000 ML IV SCH (07:30)
[2017-12-11] MEDS: RESP: ALBUTEROL 2.5 MG/3 ML NEB (SCH) NEB ×3 (08:13→19:24)
[2017-12-11] MEDS: THIAMINE HCL 100 MG TAB PO SCH (08:41)
[2017-12-11] MEDS: MULTIVITAMINS/MINERALS THERAPEUTIC TAB PO SCH (08:41)
[2017-12-11] MEDS: FOLIC ACID 1 MG TAB PO SCH (08:41)
[2017-12-11] MEDS: NICOTINE 21 MG/24 HR PATCH T-DERMAL SCH (08:42)
[2017-12-11] MEDS: SODIUM CHLORIDE 0.9% FLUSH 10 ML FLUSH IV FLUSH SCH ×2 (08:42→21:03)
[2017-12-11] MEDS: REMOVE OLD PATCH T-DERMAL SCH (08:43)
--- NOTE | 2017-12-11 09:33 | HHI.FPPN ---
Subjective Remarks Vitals within normal limits overnight Has been on 2 L nasal cannula oxygen, satting 95 -100% Had 5 bowel movements since yesterday, had 9 bowel movements a day before Denies any pain, or chest pain. Endorses increased shortness of breath and weakness. (Lolita Coe MD R1) Objective Vitals Vital Signs Date Time Temp Pulse Resp B/P (MAP) Pulse Ox O2 Delivery O2 Flow Rate FiO2 12/11/17 08:13 95 Nasal Cannula 2.00 12/11/17 07:28 97.1 85 18 103/59 (74) 97 12/11/17 05:44 97.7 89 21 103/57 (72) 99 12/11/17 00:00 97.5 98 17 98/55 (69) 100 12/10/17 21:30 97.9 97 16 103/69 (80) 97 12/10/17 20:54 99 Nasal Cannula 2.00 12/10/17 17:50 98.7 62 20 146/76 (99) 99 12/10/17 15:56 95.8 104 19 121/69 (86) 100 12/10/17 11:47 96.9 97 19 105/52 (69) 100 I/O 12/10/17 12/10/17 12/10/17 12/11/17 12/11/17 12/11/17 06:59 14:59 22:59 06:59 14:59 22:59 Intake Total 1542 ml Balance 1542 ml Intake Oral 800 ml IV Total 742 ml # Voids 2 1 2 # Bowel Movements 6 3 2 (Lolita Coe MD R1) Result Diagram: 12/10/17 0322 12/10/171999 Objective Remarks O. CONSTITUTIONAL/GEN: Thin, elderly lady appearing pale and fatigued resting in bed. EYES: conjunctiva normal, PERRLA, EOMI. ENT: Mouth and pharynx normal. NECK: Supple. LUNGS: Respiratory effort is normal. Coarse lung sounds on expiration heard bilaterally. CARDIOVASCULAR: RR without murmur or gallop. No significant edema. GI/ABD: soft without masses, hyperactive bowel sounds. Minimal tenderness to palpation in the lower quadrants. : no CVA tenderness NEURO: No focal deficits. Gait is normal SKIN: color normal, no rashes noted. HEME/LYMPH: Some bruising of the extremities noted, however, these appear old MUSC: Normal range of motion PSYCH/MENTAL STATUS: Alert and oriented x 3. (Lolita Coe MD R1) A/P Assessment and Plan Patient is a 66-year-old female with history of 3 recent episodes of C. difficile presenting with subsequent relapse of C. difficile. Vancomycin p.o. and IV fluids started. Potassium has been repleted as needed. Infectious disease agrees with current treatment plan. Discharge Planning Case management consulted, appreciate assistance. Suspect patient may require home health. (Lolita Coe MD R1) Attending Attestation Patient examined independently and case discussed with resident physician I have read the above note and agree with the assessment/plan as discussed with me I was involved in all medical decision making for this patient Cuba Arora MD (Cuba Arora MD) Problem List: (1) C. 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 every 6 hours for 7 days, will be tapered over a course of 35 days Stool studies show high stool WBC count, negative enteric pathogens. Giardia and crypto pending Blood cx show NG in 1 day Continue IV fluids supplemented with potassium for supportive care (2) Hypokalemia ICD Codes: E87.6 - Hypokalemia Status: Resolved Plan: Improved Potassium wnl Continue IV fluids at maintenance dose of 84 MLS per hour, added 40 meq. potassium chloride per liter Repeat potassium check as needed Plan to switch to normal saline once diarrhea decreases further in frequency or resolves (3) COPD (chronic obstructive pulmonary disease) ICD Codes: J44.9 - Chronic obstructive pulmonary disease, unspecified Status: Chronic Plan: Chronic Patient uses an albuterol inhaler/nebulizer at home Con't NC O2 Incentive spirometry ordered Ordered albuterol alternating with duo nebs every 8 hours while awake PT ordered (4) Alcohol abuse ICD Codes: F10.10 - Alcohol abuse, uncomplicated Status: Chronic Plan: Per patient's PCP, patient drinks several alcoholic beverages every day On CIWA protocol, scores have been 0 On rally pack (5) Smoker ICD Codes: F17.200 - Nicotine dependence, unspecified, uncomplicated Status: Chronic Plan: Nicotine patches (6) Normocytic anemia ICD Codes: D64.9 - Anemia, unspecified Plan: Hgb 9 from 11.6 May be secondary to blood loss w/diarrhea Will con't to monitor daily CBC. Transfuse as needed. (7) FEN Plan: Fluids: IV maintenance w/potassium supplementation (40 meq/L) Electrolytes: Repleting PRN Nutrition: Mechanical soft diet DVT prophylaxis: Indicated, Lovenox daily and SCDs (Lolita Coe MD R1) Problem Qualifiers (1) COPD (chronic obstructive pulmonary disease): Qualified Codes: J44.9 - Chronic obstructive pulmonary disease, unspecified Lolita Coe MD R1 December 11, 2017 09:33 Cuba Arora MD December 11, 2017 14:58
[2017-12-11 09:43] LABS: HEMATOCRIT 26.5 % (35.0-46.0); HEMOGLOBIN 8.6 GM/DL (11.6-15.3); MEAN CELL VOLUME 88.4 FL (80.0-100.0); MEAN CORPUSCULAR HEMOGLOBIN 28.6 PG (27.0-34.0); MEAN CORPUSCULAR HGB CONC 32.4 % (32.0-36.0); MEAN PLATELET VOLUME 9.1 FL (7.0-11.0); PLATELET COUNT 47 TH/MM3 (150-450); RED CELL DISTRIBUTION WIDTH 19.6 % (11.6-17.2)
[2017-12-11 10:14] LABS: BICARBONATE 29.6 MEQ/L (21.0-32.0); BLOOD UREA NITROGEN 2 MG/DL (7-18); CALCIUM 8.4 MG/DL (8.5-10.1); CHLORIDE 99 MEQ/L (98-107); CREATININE LESS THAN 0.15 MG/DL (0.50-1.00); GLOMERULAR FILTRATION RATE 495 ML/MIN (>89); GLUCOSE,RANDOM 81 MG/DL (74-106); SODIUM (NA) 136 MEQ/L (136-145)
[2017-12-11 16:43] LABS: BLOOD UREA NITROGEN 2 MG/DL (7-18); CHLORIDE 97 MEQ/L (98-107); CREATININE 0.26 MG/DL (0.50-1.00); GLOMERULAR FILTRATION RATE 263 ML/MIN (>89); GLUCOSE,RANDOM 102 MG/DL (74-106); SODIUM (NA) 133 MEQ/L (136-145)
[2017-12-11] MEDS: ENOXAPARIN SODIUM 40 MG/0.4 ML SYRINGE SQ SCH (16:43)
[2017-12-11 16:44] LABS: BICARBONATE 28.6 MEQ/L (21.0-32.0); TROPONIN I LESS THAN 0.02 NG/ML (0.02-0.05)
[2017-12-11] MEDS: RESP: ALBUTEROL 2.5 MG/IPRATROPIUM 0.5 MG NEB (SCH) NEB ×2 (16:47→23:42)
--- NOTE | 2017-12-11 16:55 | RADRPT ---
EXAM DATE/TIME: 12/11/2017 16:28 [facility] COMPARISON: CHEST SINGLE AP, September 11, 2017, 12:36. CHEST SINGLE AP, September 17, 2017, 15:22. CHEST SINGLE AP, December 09, 2017, 11:45. INDICATIONS : Chest Pain MEDICAL HISTORY : Chronic obstructive pulmonary disease. SURGICAL HISTORY : Tubal ligation. Hip replacement. ENCOUNTER: Subsequent ACUITY: 3 days PAIN SCORE: 0/10 LOCATION: Bilateral chest FINDINGS: A single view of the chest demonstrates the lungs to be symmetrically aerated without evidence of mas s, infiltrate or effusion. No evidence of pneumothorax. The cardiomediastinal contours are unremarka ble. Stable deformity of the posterolateral right 8th and posterolateral left 8th and 9th ribs yury cteristic of old fractures.. CONCLUSION: The lungs are symmetrically aerated and clear. Dani Kitchen MD on December 11, 2017 at 16:51 Board Certified Radiologist. This report was verified electronically.
--- NOTE | 2017-12-11 17:18 | HHI.FPPN ---
Addendum to progress note ADDENDUM Reason for addendum: Additonal documentation Additional information Residents were paged regarding patient having chest pain. Nurse stated it started earlier in the afternoon. She stated her vitals are stable. Upon evaluation of patient, patient states the chest pain started after the physical therapist walked her around. She states the pain started gradually. States the pain is in the middle of her chest and radiated to her left shoulder. Describes as a stabbing burning pain. States the pain is improved. She thinks it is from exerting herself too much. States she felt like her heart was beating fast during the chest pain as well. Denies any pain like this in the past. Endorses some shortness of breath along with the pain. Denies any anxiety. Denies any sweating or nausea/vomiting. Vitals: Afebrile; HR 90, RR 18, BP 110/61. 97% on 2L Gen: NAD, lying in bed talking with son Chest: Tender to palpation in left upper chest CV: RRR w/o murmurs Lungs: CTAB. Diminished breath sounds bilaterally Ext: no edema A/P: 66-year-old female with history of COPD admitted for C. difficile colitis presenting with chest pain. Stat EKG performed which shows normal sinus rhythm without signs of ischemia. Stat troponin/BMP wnl CXR shows no acute disease Suspect costochondritis vs anxiety at this time. Cardiac etiology ruled out at this point. -Continue to monitor. -Continue breathing treatments -Tylenol PRN pain Ron Coronel MD R2 December 11, 2017 17:18
[2017-12-11] MEDS ORDERED: PHARMACY ORDERED LAB ONE (22:45)
[2017-12-12] VITALS (8 sets, daily range): BP systolic 92–136; BP diastolic 46–69; PULSE 86–104; RESP 18–20; TEMP 97.4–98.6; O2SAT 95–99
[2017-12-12] MEDS: RESP: ALBUTEROL 2.5 MG/3 ML NEB (SCH) NEB ×3 (03:37→19:55)
[2017-12-12] MEDS: VANCOMYCIN 500 MG VIAL (FOR ORAL USE ONLY) PO SCH ×2 (04:06→08:47)
[2017-12-12 06:28] LABS: HEMATOCRIT 25.1 % (35.0-46.0); HEMOGLOBIN 8.2 GM/DL (11.6-15.3); MEAN CELL VOLUME 89.2 FL (80.0-100.0); MEAN CORPUSCULAR HEMOGLOBIN 29.2 PG (27.0-34.0); MEAN CORPUSCULAR HGB CONC 32.7 % (32.0-36.0); MEAN PLATELET VOLUME 8.8 FL (7.0-11.0); PLATELET COUNT 58 TH/MM3 (150-450); RED BLOOD COUNT 2.82 MIL/MM3 (4.00-5.30); RED CELL DISTRIBUTION WIDTH 19.3 % (11.6-17.2); WHITE BLOOD COUNT 2.8 TH/MM3 (4.0-11.0)
[2017-12-12 06:55] LABS: BICARBONATE 29.3 MEQ/L (21.0-32.0); CREATININE 0.22 MG/DL (0.50-1.00)
[2017-12-12] MEDS: THIAMINE HCL 100 MG TAB PO SCH (08:46)
[2017-12-12] MEDS: MULTIVITAMINS/MINERALS THERAPEUTIC TAB PO SCH (08:46)
[2017-12-12] MEDS: FOLIC ACID 1 MG TAB PO SCH (08:46)
[2017-12-12] MEDS: SODIUM CHLORIDE 0.9% FLUSH 10 ML FLUSH IV FLUSH SCH ×2 (08:46→20:42)
[2017-12-12] MEDS: REMOVE OLD PATCH T-DERMAL SCH (08:48)
[2017-12-12] MEDS: NICOTINE 21 MG/24 HR PATCH T-DERMAL SCH (08:48)
[2017-12-12] MEDS: RESP: ALBUTEROL 2.5 MG/IPRATROPIUM 0.5 MG NEB (SCH) NEB ×3 (10:12→23:57)
--- NOTE | 2017-12-12 11:52 | HHI.FPPN ---
Subjective Remarks No acute events overnight. Patient continues to have diarrhea that is basically unchanged. She also continues to have generalized weakness and fatigue. Denies chest pain, nausea or vomiting. She does have some abdominal discomfort she attributes to the diarrhea. (Costa Carey MD R1) Objective Vitals Vital Signs Date Time Temp Pulse Resp B/P (MAP) Pulse Ox O2 Delivery O2 Flow Rate FiO2 12/12/17 10:14 99 Nasal Cannula 2.00 12/12/17 08:19 97.9 86 20 100/55 (70) 99 12/12/17 04:51 97.4 91 18 92/46 (61) 99 12/12/17 00:52 98.6 92 18 92/55 (67) 99 12/11/17 21:18 97.8 104 18 124/66 (85) 96 12/11/17 19:26 98 Nasal Cannula 2.00 12/11/17 15:30 98.0 91 18 110/61 (77) 97 12/11/17 14:05 91 24 117/69 (85) 100 I/O 12/11/17 12/11/17 12/11/17 12/12/17 12/12/17 12/12/17 07:00 15:00 23:00 07:00 15:00 23:00 Intake Total 1736 ml Balance 1736 ml Intake Oral 860 ml IV Total 876 ml # Voids 2 2 4 # Bowel Movements 2 2 5 (Costa Carey MD R1) Result Diagram: 12/12/17 0340 12/12/17 0340 Objective Remarks CONSTITUTIONAL/GEN: Thin, elderly lady appearing pale and fatigued. EYES: conjunctiva normal, EOMI. NECK: Supple. LUNGS: Respiratory effort is normal. Coarse lung sounds on expiration heard bilaterally. CARDIOVASCULAR: RR without murmur or gallop. No significant edema. GI/ABD: soft without masses, hyperactive bowel sounds. Minimal tenderness to palpation in the lower quadrants. NEURO: No focal deficits. SKIN: color normal, no rashes noted. MUSC: Normal range of motion PSYCH/MENTAL STATUS: Alert and oriented x 3. (Costa Carey MD R1) A/P Assessment and Plan Patient is a 66-year-old female with history of 3 recent episodes of C. difficile presenting with subsequent relapse of C. difficile. Vancomycin p.o. and IV fluids started. Potassium has been repleted as needed. Infectious disease agrees with current treatment plan. Discharge Planning Patient has significant generalized weakness and will likely need SNF or home health on discharge. (Costa Carey MD R1) Attending Attestation Pt. seen, examined and discussed with Drs. Carey and Refugio Meraz. She feels very weak and fatigued; reports that up until September she was able to perform all her ADLs and IADLS. She is . continues to have multiple loose stools daily and is wearing a brief because of difficulty getting to the bedside commode. Exam is as documented above; I agree with findings. Will continue PT and vancomycin. I agree with the plan. (Joaquina Meraz MD) Problem List: (1) C. 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 every 6 hours for 7 days, will be tapered over a course of 35 days Stool studies show high stool WBC count, negative enteric pathogens. Giardia and crypto negative Blood cx show NG in 3 day Continue IV fluids supplemented with potassium for supportive care (2) Hypokalemia ICD Codes: E87.6 - Hypokalemia Status: Resolved Plan: Resolved Potassium wnl Continue IV fluids at maintenance dose of 84 MLS per hour, added 40 meq. potassium chloride per liter Repeat potassium check as needed Plan to switch to normal saline once diarrhea decreases further in frequency or resolves (3) COPD (chronic obstructive pulmonary disease) ICD Codes: J44.9 - Chronic obstructive pulmonary disease, unspecified Status: Chronic Plan: Chronic Patient uses an albuterol inhaler/nebulizer at home Con't NC O2 Incentive spirometry ordered Ordered albuterol alternating with duo nebs every 8 hours while awake PT ordered (4) Pancytopenia ICD Codes: D61.818 - Other pancytopenia Plan: Patient is pancytopenic with WBC of 2.8, anemia with a hemoglobin of 8.2 , platelet count of 58 Patient has been significantly ill for the last 3 months We will continue to monitor at this point, no signs of bleeding, transfuse as needed (5) Alcohol abuse ICD Codes: F10.10 - Alcohol abuse, uncomplicated Status: Chronic Plan: Per patient's PCP, patient drinks several alcoholic beverages every day On CIWA protocol, scores have been 0 - 2 On rally pack (6) Smoker ICD Codes: F17.200 - Nicotine dependence, unspecified, uncomplicated Status: Chronic Plan: Nicotine patches (7) FEN Plan: Fluids: IV fluids at 84 ml/hr w/potassium supplementation (40 meq/L) Electrolytes: Repleting PRN Nutrition: Mechanical soft diet DVT prophylaxis: Indicated, Lovenox daily and SCDs (Costa Carey MD R1) Problem Qualifiers (1) COPD (chronic obstructive pulmonary disease): Qualified Codes: J44.9 - Chronic obstructive pulmonary disease, unspecified Costa Carey MD R1 December 12, 2017 11:52 Joaquina Meraz MD December 12, 2017 13:49
[2017-12-12] MEDS: NS + KCL 40 MEQ INJ 1,000 ML IV SCH ×2 (13:59→17:00)
--- NOTE | 2017-12-12 14:43 | HHI.IDPN ---
Note Infectious Disease Note Patient continues to have frequent watery bowel movements. She notes that she has had 4 bowel movements so far today. Eating very little. Denies chills. Afebrile. Admitted with profuse diarrhea. PAST MEDICAL HISTORY: COPD, history of varicose vein surgery, history of left hip surgery, tubal ligation, C. difficile colitis. ALLERGIES: NO KNOWN DRUG. ALLERGIES: NO KNOWN DRUG ALLERGIES. MEDICATIONS: Current Medications Medications (Trade) Dose Ordered Sig/Nikhil Route PRN Reason Start Time Stop Time Status Last Admin Dose Admin Sodium Chloride (NS Flush) 2 ml UNSCH PRN IV FLUSH FLUSH AFTER USING IV ACCESS 12/09/17 15:00 Sodium Chloride (NS Flush) 2 ml BID IV FLUSH 12/09/17 21:00 12/11/17 21:03 Acetaminophen (Tylenol) 650 mg Q4H PRN PO PAIN SCALE 1 TO 10 12/09/17 15:00 Ondansetron HCl (Zofran Inj) 4 mg Q6H PRN IV PUSH NAUSEA OR VOMITING 12/09/17 15:00 12/11/17 21:03 Enoxaparin Sodium (Lovenox Inj) 40 mg Q24H SQ 12/09/17 18:00 12/11/17 16:43 Flumazenil (Romazicon Inj) 0.2 mg Q1M PRN IV PUSH SEE LABEL COMMENTS 12/09/17 15:00 Lorazepam (Ativan) 1 mg Q4H PRN PO CIWA 8 - 10 12/09/17 15:00 Lorazepam (Ativan Inj) 1 mg Q4H PRN IV PUSH CIWA 8 - 10 12/09/17 15:00 Lorazepam (Ativan) 2 mg Q2H PRN PO CIWA 11-14 12/09/17 15:00 Lorazepam (Ativan Inj) 2 mg Q2H PRN IV PUSH CIWA 11-14 12/09/17 15:00 Lorazepam (Ativan Inj) 2 mg Q1H PRN IV PUSH CIWA 15-20 12/09/17 15:00 Lorazepam (Ativan Inj) 2 mg Q15M PRN IV PUSH CIWA > 20 12/09/17 15:00 Nicotine (Habitrol 21 Mg Patch.24 Hr) 1 patch DAILY T-DERMAL 12/09/17 18:00 12/12/17 08:48 Miscellaneous Information 1 DAILY T-DERMAL 12/10/17 09:00 12/12/17 08:48 Vancomycin HCl (VANCOMYCIN for oral use only) 125 mg Q12H PO 12/16/17 16:00 12/23/17 15:59 Vancomycin HCl (VANCOMYCIN for oral use only) 125 mg Q24H PO 12/23/17 16:00 12/30/17 15:59 Vancomycin HCl (VANCOMYCIN for oral use only) 125 mg Q48H PO 12/30/17 16:00 01/06/18 15:59 Vancomycin HCl (VANCOMYCIN for oral use only) 125 mg Q72H PO 01/06/18 16:00 01/20/18 15:59 Vancomycin HCl (VANCOMYCIN for oral use only) 125 mg Q6H PO 12/09/17 16:00 12/16/17 15:59 12/12/17 08:47 Folic Acid (Folate) 1 mg DAILY PO 12/09/17 16:15 12/14/17 16:14 12/12/17 08:46 Thiamine HCl (Vitamin B1) 100 mg DAILY PO 12/09/17 16:15 12/12/17 08:46 Multivitamins/ Minerals Therapeutic (Theragran M Tab) 1 tab DAILY PO 12/09/17 16:15 12/14/17 16:14 12/12/17 08:46 Potassium Chloride/Sodium Chloride 1,000 ml @ 84 mls/hr [id number] IV 12/10/17 15:00 12/11/17 18:07 Albuterol Sulfate (Albuterol Neb) 2.5 mg Q8HR ALT NEB NEB 12/11/17 12:00 12/12/17 03:37 Albuterol/ Ipratropium (Duoneb Neb) 1 ampule Q8HR NEB NEB 12/11/17 16:00 12/12/17 10:12 SOCIAL HISTORY: The patient has been for 20 years. Positive tobacco use, half a pack of cigarettes a day. Positive alcohol use in the form of whiskey daily. No illicit drugs. Objective: Laboratory Tests Test 12/11/17 06:30 12/12/17 03:40 White Blood Count 4.0 TH/MM3 2.8 TH/MM3 Red Blood Count 3.00 MIL/MM3 2.82 MIL/MM3 Hemoglobin 8.6 GM/DL 8.2 GM/DL Hematocrit 26.5 % 25.1 % Mean Corpuscular Volume 88.4 FL 89.2 FL Mean Corpuscular Hemoglobin 28.6 PG 29.2 PG Mean Corpuscular Hemoglobin Concent 32.4 % 32.7 % Red Cell Distribution Width 19.6 % 19.3 % Platelet Count 47 TH/MM3 58 TH/MM3 Mean Platelet Volume 9.1 FL 8.8 FL Laboratory Tests Test 12/10/17 20:00 12/11/17 06:30 12/11/17 15:34 12/12/17 03:40 Potassium Level 4.0 MEQ/L 4.0 MEQ/L 4.2 MEQ/L 4.0 MEQ/L Blood Urea Nitrogen 2 MG/DL 2 MG/DL 1 MG/DL Creatinine LESS THAN 0.15 MG/DL 0.26 MG/DL 0.22 MG/DL Random Glucose 81 MG/DL 102 MG/DL 114 MG/DL Calcium Level 8.4 MG/DL 9.0 MG/DL 9.0 MG/DL Sodium Level 136 MEQ/L 133 MEQ/L 138 MEQ/L Chloride Level 99 MEQ/L 97 MEQ/L 100 MEQ/L Carbon Dioxide Level 29.6 MEQ/L 28.6 MEQ/L 29.3 MEQ/L Anion Gap 7 MEQ/L MEQ/L 9 MEQ/L Estimat Glomerular Filtration Rate 495 ML/MIN 263 ML/MIN 318 ML/MIN Troponin I LESS THAN 0.02 NG/ML Microbiology Date/Time Source Procedure Growth Status 12/09/17 22:30 Stool Stool Cryptosporidium Exam - Final NEGATIVE - NO CRYPTOSPORIDIUM ANTIGEN... Complete 12/09/17 22:30 Stool Stool Stool Pus ([facility]) - Final MANY WBC'S Complete 12/09/17 22:30 Stool Stool Giardia Antigen ([facility]) - Final NEGATIVE - NO GIARDIA ANTIGEN DETECTE... Complete IMAGING: Chest X-Ray 12/11/17 0000 Signed Impressions: Service Date/Time: December 16:28 - CONCLUSION: The lungs are symmetrically aerated and clear. Dani Kitchen MD Abdomen X-Ray 12/10/17 0000 Signed Impressions: Service Date/Time: Sunday, December 10, 2017 09:48 - CONCLUSION: No acute disease. Cuba Small MD PHYSICAL EXAMINATION: GENERAL: No acute distress. Awake and alert and oriented. HEENT: The head is atraumatic. Extraocular movements are grossly intact. No icterus. Oropharynx, moist mucosa. No visible lesions. No thrush. The patient is edentulous. NECK: Supple, without adenopathy or swelling. LUNGS: Clear breath sounds. HEART: Regular S1 and S2. No murmurs, rubs or gallops. ABDOMEN: Bowel sounds diminished, flat, soft, mild tenderness at the periumbilical area. EXTREMITIES: No clubbing, no cyanosis or edema. Muscle wasting is apparent at the extremities. SKIN: No diffuse rash. NEUROLOGIC: No gross focal findings. PSYCHIATRIC: Calm and cooperative. IMPRESSION: 1. Recurrent Clostridium difficile colitis. The patient with history of Clostridium difficile, which had been treated in the past. No improvement in stools. 2. Thrombocytopenia. Questionable etiology, probably related to alcohol. 3. Leukocytosis secondary to Clostridium difficile. She now has a low white blood cell count. RECOMMENDATIONS: 1. Change oral vancomycin to Dificid. Patient reportedly had prescribed Dificid in the past and she had refused. If she refuses a Dificid we can go back to vancomycin p.o. and add Flagyl IV. 2. Add Lactinex. 3. Monitor the stool output. Ez Caballero MD December 12, 2017 14:42
[2017-12-12] MEDS: LACTOBACILLUS ACIDOPHILUS TAB PO SCH ×2 (15:37→20:42)
[2017-12-12] MEDS: FIDAXOMICIN 200 MG TAB PO SCH ×2 (15:37→20:42)
[2017-12-12] MEDS: ENOXAPARIN SODIUM 40 MG/0.4 ML SYRINGE SQ SCH (17:01)
--- NOTE | 2017-12-12 21:33 | EKG ---
Date Performed: 12/11/2017 Time Performed: 15:00:02 PTAGE: 66 years EKG: Sinus rhythm NORMAL ECG Since the PREVIOUS TRACING , no significant change noted PREVIOUS TRACIN09/11/2017 16.04 DOCTOR: Mac Elias Interpretating Date/Time 12/12/2017 16:56:07
[2017-12-13] VITALS (8 sets, daily range): BP systolic 102–129; BP diastolic 51–69; PULSE 80–96; RESP 17–19; TEMP 97.8–98.9; O2SAT 96–100
[2017-12-13] MEDS: RESP: ALBUTEROL 2.5 MG/3 ML NEB (SCH) NEB ×3 (02:45→20:40)
[2017-12-13] MEDS: RESP: ALBUTEROL 2.5 MG/IPRATROPIUM 0.5 MG NEB (SCH) NEB ×2 (07:58→15:42)
[2017-12-13 08:15] LABS: AUTOMATED NEUTROPHIL # 2.7 TH/MM3 (1.8-7.7); BASOPHIL % 0.4 % (0.0-2.0); EOSINOPHIL % 0.7 % (0.0-4.0); HEMATOCRIT 26.2 % (35.0-46.0); HEMOGLOBIN 8.6 GM/DL (11.6-15.3); LYMPH % 23.2 % (9.0-44.0); MEAN CELL VOLUME 88.2 FL (80.0-100.0); MEAN CORPUSCULAR HGB CONC 32.9 % (32.0-36.0); MEAN PLATELET VOLUME 7.8 FL (7.0-11.0); MONO % 14.9 % (0.0-8.0); MONOCYTE # 0.7 TH/MM3 (0-0.9); NEUT % 60.8 % (16.0-70.0); PLATELET COUNT 76 TH/MM3 (150-450); RED BLOOD COUNT 2.97 MIL/MM3 (4.00-5.30); WHITE BLOOD COUNT 4.4 TH/MM3 (4.0-11.0)
[2017-12-13 08:39] LABS: BICARBONATE 31.2 MEQ/L (21.0-32.0); CALCIUM 8.8 MG/DL (8.5-10.1); CREATININE 0.17 MG/DL (0.50-1.00)
[2017-12-13] MEDS: FIDAXOMICIN 200 MG TAB PO SCH ×2 (08:57→20:12)
[2017-12-13] MEDS: FOLIC ACID 1 MG TAB PO SCH (08:57)
[2017-12-13] MEDS: MULTIVITAMINS/MINERALS THERAPEUTIC TAB PO SCH (08:57)
[2017-12-13] MEDS: THIAMINE HCL 100 MG TAB PO SCH (08:57)
[2017-12-13] MEDS: LACTOBACILLUS ACIDOPHILUS TAB PO SCH ×2 (08:57→20:12)
[2017-12-13] MEDS: REMOVE OLD PATCH T-DERMAL SCH (08:58)
[2017-12-13] MEDS: SODIUM CHLORIDE 0.9% FLUSH 10 ML FLUSH IV FLUSH SCH ×2 (08:58→20:13)
[2017-12-13] MEDS: NICOTINE 21 MG/24 HR PATCH T-DERMAL SCH (08:58)
[2017-12-13 09:01] LABS: BANDS 1 % (0-6); BASOPHILS 1 % (0-2); LYMPHOCYTES 17 % (9-44); METAMYELOCYTES 1 % (0-1); MONOCYTES 13 % (0-8); MYELOCYTES 2 % (0-0); POLYS (SEG NEUTROPHILS) 65 % (16-70)
--- NOTE | 2017-12-13 10:43 | HHI.FPPN ---
Subjective Remarks Patient seen and examined this morning. No acute events overnight. Patient reports her symptoms are the same. Had 4-5 loose bowel movements overnight. Still having continued abdominal comfort. Otherwise, denies any other complaints. Denies any fever/chills, chest pain, shortness of breath, leg pain. Objective Vitals Vital Signs Date Time Temp Pulse Resp B/P (MAP) Pulse Ox O2 Delivery O2 Flow Rate FiO2 12/13/17 08:22 97.9 92 17 103/53 (70) 99 12/13/17 07:58 99 Nasal Cannula 2.00 12/13/17 04:46 97.8 96 18 102/51 (68) 100 12/13/17 00:15 98.2 93 18 110/53 (72) 97 12/12/17 20:02 97.9 104 18 119/56 (77) 98 12/12/17 16:37 97 Nasal Cannula 2.00 12/12/17 16:00 98.3 91 18 136/69 (91) 95 12/12/17 12:36 98.3 93 18 123/67 (85) 97 I/O 12/12/17 12/12/17 12/12/17 12/13/17 12/13/17 12/13/17 07:00 15:00 23:00 07:00 15:00 23:00 Intake Total 240 ml Balance 240 ml Intake Oral 240 ml # Voids 3 2 4 1 # Bowel Movements 1 1 Result Diagram: 12/13/17 0711 12/13/17 0711 Objective Remarks CONSTITUTIONAL/GEN: Thin, elderly lady appearing pale and fatigued. LUNGS: Respiratory effort is normal. Coarse lung sounds on expiration heard bilaterally. CARDIOVASCULAR: RR without murmur or gallop. No significant edema. GI/ABD: soft without masses, hyperactive bowel sounds. Minimal tenderness to palpation in the lower quadrants. NEURO: No focal deficits. SKIN: color normal, no rashes noted. PSYCH/MENTAL STATUS: Alert and oriented x 3. A/P Assessment and Plan Patient is a 66-year-old female with history of 3 recent episodes of C. difficile presenting with subsequent relapse of C. difficile. Vancomycin p.o. and IV fluids started. Potassium has been repleted as needed. Infectious disease agrees with current treatment plan. Discharge Planning Pending clinical improvement Patient has significant generalized weakness and will likely need SNF or home health on discharge. Problem List: (1) C. 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 Giardia and crypto negative Blood cx show NG in 3 day Continue IV fluids supplemented with potassium for supportive care (2) COPD (chronic obstructive pulmonary disease) ICD Codes: J44.9 - Chronic obstructive pulmonary disease, unspecified Status: Chronic Plan: Chronic Patient uses an albuterol inhaler/nebulizer at home Con't NC O2 Incentive spirometry ordered Ordered albuterol alternating with duo nebs every 8 hours while awake PT ordered (3) Pancytopenia ICD Codes: D61.818 - Other pancytopenia Plan: Patient is pancytopenic with WBC of 2.8, anemia with a hemoglobin of 8.2 , platelet count of 58 Patient has been significantly ill for the last 3 months We will continue to monitor at this point, no signs of bleeding, transfuse as needed (4) Alcohol abuse ICD Codes: F10.10 - Alcohol abuse, uncomplicated Status: Chronic Plan: Per patient's PCP, patient drinks several alcoholic beverages every day On CIWA protocol, scores have been 0 - 2 On rally pack May be able to stop CIWA as pt outside window of withdrawing and low CIWA scores (5) Smoker ICD Codes: F17.200 - Nicotine dependence, unspecified, uncomplicated Status: Chronic Plan: Nicotine patches (6) FEN Status: Acute Plan: Fluids: IV fluids at 84 ml/hr w/potassium supplementation (40 meq/L) Electrolytes: Repleting PRN Nutrition: Mechanical soft diet DVT prophylaxis: SCDs, hold Lovenox with thrombocytopenia Problem Qualifiers (1) COPD (chronic obstructive pulmonary disease): Qualified Codes: J44.9 - Chronic obstructive pulmonary disease, unspecified Ron Coronel MD R2 December 13, 2017 10:43
[2017-12-13] MEDS: NS + KCL 40 MEQ INJ 1,000 ML IV SCH (15:17)
[2017-12-13] MEDS: ENOXAPARIN SODIUM 40 MG/0.4 ML SYRINGE SQ SCH (17:06)
[2017-12-14] VITALS (7 sets, daily range): BP systolic 99–132; BP diastolic 50–82; PULSE 89–101; RESP 18–20; TEMP 97.8–98.2; O2SAT 95–99
[2017-12-14] MEDS: RESP: ALBUTEROL 2.5 MG/3 ML NEB (SCH) NEB ×2 (03:38→20:14)
[2017-12-14] MEDS: NS + KCL 40 MEQ INJ 1,000 ML IV SCH ×2 (03:40→08:16)
[2017-12-14 08:00] LABS: HEMATOCRIT 27.4 % (35.0-46.0); MEAN CELL VOLUME 88.7 FL (80.0-100.0); MEAN CORPUSCULAR HEMOGLOBIN 29.1 PG (27.0-34.0); MEAN CORPUSCULAR HGB CONC 32.7 % (32.0-36.0); MEAN PLATELET VOLUME 8.1 FL (7.0-11.0); PLATELET COUNT 106 TH/MM3 (150-450); RED BLOOD COUNT 3.09 MIL/MM3 (4.00-5.30); RED CELL DISTRIBUTION WIDTH 20.3 % (11.6-17.2); WHITE BLOOD COUNT 6.3 TH/MM3 (4.0-11.0)
[2017-12-14] MEDS: RESP: ALBUTEROL 2.5 MG/IPRATROPIUM 0.5 MG NEB (SCH) NEB ×3 (08:00→23:33)
[2017-12-14] MEDS: FIDAXOMICIN 200 MG TAB PO SCH ×2 (08:17→22:16)
[2017-12-14] MEDS: SODIUM CHLORIDE 0.9% FLUSH 10 ML FLUSH IV FLUSH SCH ×2 (08:17→21:00)
[2017-12-14] MEDS: MULTIVITAMINS/MINERALS THERAPEUTIC TAB PO SCH (08:17)
[2017-12-14] MEDS: THIAMINE HCL 100 MG TAB PO SCH (08:17)
[2017-12-14] MEDS: LACTOBACILLUS ACIDOPHILUS TAB PO SCH ×2 (08:17→22:16)
[2017-12-14] MEDS: REMOVE OLD PATCH T-DERMAL SCH (08:17)
[2017-12-14] MEDS: FOLIC ACID 1 MG TAB PO SCH (08:17)
[2017-12-14] MEDS: NICOTINE 21 MG/24 HR PATCH T-DERMAL SCH (08:17)
[2017-12-14 08:28] LABS: BICARBONATE 30.5 MEQ/L (21.0-32.0); CALCIUM 8.9 MG/DL (8.5-10.1); CREATININE 0.23 MG/DL (0.50-1.00)
--- NOTE | 2017-12-14 09:49 | HHI.FPPN ---
Subjective Remarks No acute events overnight. Patient states that her diarrhea is improving she is having to go less frequently. Currently denies any abdominal pain, nausea or vomiting. She also states her appetite is improved some today and is overall feeling better. Objective Vitals Vital Signs Date Time Temp Pulse Resp B/P (MAP) Pulse Ox O2 Delivery O2 Flow Rate FiO2 12/14/17 08:28 99 Nasal Cannula 2.00 12/14/17 08:00 98.0 92 18 99/50 (66) 96 12/14/17 05:40 98.0 89 20 132/82 (99) 95 12/14/17 01:00 97.8 89 20 120/80 (93) 96 12/13/17 23:00 98.9 80 19 129/69 (89) 96 12/13/17 20:41 99 Nasal Cannula 2.00 12/13/17 16:00 97.9 92 19 105/57 (73) 100 12/13/17 12:46 98.2 85 19 112/69 (83) 99 I/O 12/13/17 12/13/17 12/13/17 12/14/17 12/14/17 12/14/17 07:00 15:00 23:00 07:00 15:00 23:00 Intake Total 1720 ml 1950 ml Balance 1720 ml 1950 ml Intake Oral 1720 ml 950 ml IV Total 1000 ml # Voids 4 1 9 4 # Bowel Movements 1 1 4 1 1 Result Diagram: 12/14/17 0636 12/14/17 0636 Objective Remarks CONSTITUTIONAL/GEN: Thin, elderly lady appearing pale and fatigued. LUNGS: Respiratory effort is normal. Coarse lung sounds on expiration heard bilaterally. CARDIOVASCULAR: RR without murmur or gallop. No significant edema. GI/ABD: soft without masses, hyperactive bowel sounds. Minimal tenderness to palpation in the lower quadrants. NEURO: No focal deficits. SKIN: color normal, no rashes noted. PSYCH/MENTAL STATUS: Alert and oriented x 3. A/P Assessment and Plan Patient is a 66-year-old female with history of 3 recent episodes of C. difficile presenting with subsequent relapse of C. difficile. Vancomycin p.o. and IV fluids started. Potassium has been repleted as needed. Infectious disease was consulted and elected to switch from vancomycin to Dificid on 12/12. Symptoms have been gradually improving since then. Discharge Planning Pending clinical improvement Patient has significant generalized weakness and will likely need SNF or home health on discharge. Problem List: (1) C. 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 Stools are slightly more formed and she has having to go less frequently Infectious disease consulted -Changed to Dificid 12/12 200mg BID -Stopped Vanc Stool studies show high stool WBC count, negative enteric pathogens. Giardia and crypto negative Blood cx show NG in 3 day Continue IV fluids supplemented with potassium for supportive care (2) COPD (chronic obstructive pulmonary disease) ICD Codes: J44.9 - Chronic obstructive pulmonary disease, unspecified Status: Chronic Plan: Chronic Patient uses an albuterol inhaler/nebulizer at home Con't NC O2 Incentive spirometry ordered Ordered albuterol alternating with duo nebs every 8 hours while awake PT ordered (3) Pancytopenia ICD Codes: D61.818 - Other pancytopenia Plan: Patient was pancytopenic on 12/12 with WBC of 2.8, anemia with a hemoglobin of 8.2, platelet count of 58 Patient has been significantly ill for the last 3 months Lab values improved on 12/14, WBC of 6.3, hemoglobin of 9.0, platelets 106 We will continue to monitor at this point, no signs of bleeding, transfuse as needed (4) Alcohol abuse ICD Codes: F10.10 - Alcohol abuse, uncomplicated Status: Chronic Plan: Per patient's PCP, patient drinks several alcoholic beverages every day On CIWA protocol, scores have been 0 - 2 On rally pack May be able to stop CIWA as pt outside window of withdrawing and low CIWA scores (5) Smoker ICD Codes: F17.200 - Nicotine dependence, unspecified, uncomplicated Status: Chronic Plan: Nicotine patches (6) FEN Status: Acute Plan: Fluids: IV fluids at 84 ml/hr w/potassium supplementation (40 meq/L) Electrolytes: Repleting PRN Nutrition: Mechanical soft diet DVT prophylaxis: SCDs, hold Lovenox with thrombocytopenia Problem Qualifiers (1) COPD (chronic obstructive pulmonary disease): Qualified Codes: J44.9 - Chronic obstructive pulmonary disease, unspecified Costa Carey MD R1 December 14, 2017 09:49
[2017-12-14] MEDS: ENOXAPARIN SODIUM 40 MG/0.4 ML SYRINGE SQ SCH (17:43)
[2017-12-15] VITALS (7 sets, daily range): BP systolic 110–129; BP diastolic 51–89; PULSE 85–96; RESP 19–20; TEMP 97.3–98.4; O2SAT 95–100
[2017-12-15] MEDS: NS + KCL 40 MEQ INJ 1,000 ML IV SCH (03:06)
[2017-12-15] MEDS: RESP: ALBUTEROL 2.5 MG/3 ML NEB (SCH) NEB (03:08)
[2017-12-15 05:19] LABS: HEMATOCRIT 24.7 % (35.0-46.0); HEMOGLOBIN 8.3 GM/DL (11.6-15.3); MEAN CELL VOLUME 87.4 FL (80.0-100.0); MEAN CORPUSCULAR HEMOGLOBIN 29.3 PG (27.0-34.0); MEAN CORPUSCULAR HGB CONC 33.6 % (32.0-36.0); MEAN PLATELET VOLUME 7.9 FL (7.0-11.0); PLATELET COUNT 153 TH/MM3 (150-450); RED BLOOD COUNT 2.83 MIL/MM3 (4.00-5.30); RED CELL DISTRIBUTION WIDTH 20.8 % (11.6-17.2); WHITE BLOOD COUNT 6.1 TH/MM3 (4.0-11.0)
[2017-12-15 05:38] LABS: BICARBONATE 29.4 MEQ/L (21.0-32.0); CALCIUM 8.8 MG/DL (8.5-10.1); CREATININE 0.3 MG/DL (0.50-1.00)
[2017-12-15 07:15] LABS: BANDS 1 % (0-6); LYMPHOCYTES 18 % (9-44); METAMYELOCYTES 1 % (0-1); MONOCYTES 15 % (0-8); MYELOCYTES 2 % (0-0); NEUTROPHIL # MANUAL DIFF 4.1 TH/MM3 (1.8-7.7); POLYS (SEG NEUTROPHILS) 63 % (16-70)
[2017-12-15] MEDS: SODIUM CHLORIDE 0.9% FLUSH 10 ML FLUSH IV FLUSH SCH (07:52)
[2017-12-15] MEDS: FIDAXOMICIN 200 MG TAB PO SCH (07:55)
[2017-12-15] MEDS: REMOVE OLD PATCH T-DERMAL SCH (07:55)
[2017-12-15] MEDS: LACTOBACILLUS ACIDOPHILUS TAB PO SCH (07:55)
[2017-12-15] MEDS: THIAMINE HCL 100 MG TAB PO SCH (07:55)
[2017-12-15] MEDS: NICOTINE 21 MG/24 HR PATCH T-DERMAL SCH (07:55)
[2017-12-15] MEDS: RESP: ALBUTEROL 2.5 MG/IPRATROPIUM 0.5 MG NEB (SCH) NEB (09:27)
--- NOTE | 2017-12-15 10:36 | HHI.DCPOC ---
Discharge Care Plan Diagnosis: (1) COPD (chronic obstructive pulmonary disease) (2) C. difficile diarrhea (3) Physical deconditioning Goals to Promote Your Health * To prevent worsening of your condition and complications * To maintain your health at the optimal level Directions to Meet Your Goals Take your medications as prescribed Follow your dietary instruction Follow activity as directed Keep your appointments as scheduled Take your immunizations and boosters as scheduled If your symptoms worsen call your PCP, if no PCP go to Urgent Care Center or Emergency Room Smoking is Dangerous to Your Health. Avoid second hand smoke Call the 24-hour hour crisis hotline for domestic abuse at Costa Carey MD R1 December 15, 2017 10:36
[2017-12-15] MEDS ORDERED: VENTAER INH (10:38)
[2017-12-15] MEDS ORDERED: Albuterol-Ipratropium Neb NEB (10:38)
[2017-12-15] MEDS ORDERED: LACT PO (10:38)
--- NOTE | 2017-12-15 10:39 | HHI.FPPN ---
Subjective Remarks Patient states that she is feeling significantly better today. Had one bowel movement overnight that was more formed than it has been. She is able to ambulate around her room much better and is not having any abdominal pain. Denies chest pain, shortness of breath, nausea or vomiting. Was able to eat her entire breakfast this morning which is an improvement for her. Objective Vitals Vital Signs Date Time Temp Pulse Resp B/P (MAP) Pulse Ox O2 Delivery O2 Flow Rate FiO2 12/15/17 09:28 96 21 12/15/17 08:01 98.1 92 20 125/64 (84) 96 12/15/17 05:45 98.3 85 19 128/89 (102) 99 12/15/17 03:11 95 Nasal Cannula 12/15/17 00:45 97.3 88 19 129/89 (102) 98 12/14/17 21:45 98.0 101 19 130/67 (88) 96 12/14/17 16:00 97.8 98 18 122/65 (84) 97 12/14/17 12:00 98.2 89 18 111/56 (74) 97 I/O 12/14/17 12/14/17 12/14/17 12/15/17 12/15/17 12/15/17 07:00 15:00 23:00 07:00 15:00 23:00 Intake Total 1950 ml 960 ml 950 ml Output Total 2 ml Balance 1950 ml 958 ml 950 ml Intake Oral 950 ml 960 ml 950 ml IV Total 1000 ml Output Urine Total 2 ml # Voids 4 3 2 4 # Bowel Movements 1 3 3 2 Result Diagram: 12/15/17 0441 12/15/17 044 Objective Remarks CONSTITUTIONAL/GEN: Thin, elderly lady with more color and less fatigue compared to prior exams LUNGS: Respiratory effort is normal. Clear to auscultation bilaterally CARDIOVASCULAR: RR without murmur or gallop. No significant edema. GI/ABD: soft without masses, hyperactive bowel sounds. No tenderness to palpation NEURO: No focal deficits. SKIN: color normal, no rashes noted. PSYCH/MENTAL STATUS: Alert and oriented x 3. A/P Assessment and Plan Patient is a 66-year-old female with history of 3 recent episodes of C. difficile presenting with subsequent relapse of C. difficile. Vancomycin p.o. and IV fluids started. Potassium has been repleted as needed. Infectious disease was consulted and elected to switch from vancomycin to Dificid on 12/12. Symptoms have been gradually improving since then. Discharge Planning Discharge to SNF today Problem List: (1) C. 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 Infectious disease consulted -Dificid 12/12 200mg BID (will complete total of 10 days) -Stopped Vanc, will resume taper after completion of Dificid treatment Stool studies show high stool WBC count, negative enteric pathogens. Giardia and crypto negative Continue IV fluids supplemented with potassium for supportive care (2) COPD (chronic obstructive pulmonary disease) ICD Codes: J44.9 - Chronic obstructive pulmonary disease, unspecified Status: Chronic Plan: Chronic Patient uses an albuterol inhaler/nebulizer at home Con't NC O2 Incentive spirometry ordered Ordered albuterol alternating with duo nebs every 8 hours while awake PT ordered (3) Pancytopenia ICD Codes: D61.818 - Other pancytopenia Plan: Patient was pancytopenic on 12/12 with WBC of 2.8, anemia with a hemoglobin of 8.2, platelet count of 58 Patient has been significantly ill for the last 3 months Lab values have continued to improve. No longer thrombocytopenic and with a normal WBC count We will continue to monitor at this point, no signs of bleeding, transfuse as needed (4) Alcohol abuse ICD Codes: F10.10 - Alcohol abuse, uncomplicated Status: Chronic Plan: Per patient's PCP, patient drinks several alcoholic beverages every day On CIWA protocol, scores have been 0 - 2 On rally pack May be able to stop CIWA as pt outside window of withdrawing and low CIWA scores (5) Smoker ICD Codes: F17.200 - Nicotine dependence, unspecified, uncomplicated Status: Chronic Plan: Nicotine patches (6) FEN Status: Acute Plan: Fluids: IV fluids at 84 ml/hr w/potassium supplementation (40 meq/L) Electrolytes: Repleting PRN Nutrition: Regular DVT prophylaxis: SCDs, hold Lovenox with thrombocytopenia Problem Qualifiers (1) COPD (chronic obstructive pulmonary disease): Qualified Codes: J44.9 - Chronic obstructive pulmonary disease, unspecified Costa Carey MD R1 December 15, 2017 10:39
[2017-12-15] MEDS ORDERED: DIFI200T PO (10:59)
[2017-12-15] MEDS ORDERED: VANC125C3 PO (10:59)
[2017-12-15] MEDS ORDERED: MEGE20TA PO (11:00)
[2017-12-15 16:02] LABS: HEMOGLOBIN A1C 5.5 % (4.3-6.0)
[2017-12-16] MEDS ORDERED: VANCOMYCIN 500 MG VIAL (FOR ORAL USE ONLY) PO SCH (16:00)
[2017-12-23] MEDS ORDERED: VANCOMYCIN 500 MG VIAL (FOR ORAL USE ONLY) PO SCH (16:00)
[2017-12-30] MEDS ORDERED: VANCOMYCIN 500 MG VIAL (FOR ORAL USE ONLY) PO SCH (16:00)
[2018-01-06] MEDS ORDERED: VANCOMYCIN 500 MG VIAL (FOR ORAL USE ONLY) PO SCH (16:00)
== END 2017-12-15 16:59 | disposition home health service (06) | DRG 372 ==
LOC: NEPE 11:03 → NEDA 13:49 → N05A 16:32
PROVIDERS: ADMIT Family Medicine; ATTEND Family Medicine
DX: A04.71 Enterocolitis due to Clostridium difficile, recurrent (principal); D61.818 Other pancytopenia; Z99.81 Dependence on supplemental oxygen; J44.9 Chronic obstructive pulmonary disease, unspecified; E86.0 Dehydration; R00.0 Tachycardia, unspecified; E87.6 Hypokalemia; F17.210 Nicotine dependence, cigarettes, uncomplicated; F10.10 Alcohol abuse, uncomplicated
CPT/HCPCS: 71045; 74018; 76937; 80048; 80053; 81001; 83036; 83605; 83735; 84132; 84484; 85007; 85025; 85027; 87040; 87205; 87328; 87329; 87493; 87506; 87804; 93005; 94150; 94640; 94664; 96360; J1650; J2405; J3370; J3475; J3480; J7030; J7050; J7613

== ENCOUNTER 2018-01-13 01:02 | Emergency (ER) | payer MEDICARE, OTHER ==
[~2018-01-13] VITALS: Ht 154.9 cm; Wt 45.0 kg
[~2018-01-13 01:02] MED LIST changes: +Albuterol-Ipratropium Neb NEB; -CALC500 PO; +DIFI200T PO; -FOLI1TAB6 PO; +LACT PO; +MEGE20TA PO; -MEGE40TA PO; -MESA1TAB2 PO
[2018-01-13 01:55] VITALS: BP 144/64; PULSE 97; RESP 16; TEMP 97.4; O2SAT 96
[2018-01-13 02:08] VITALS: RESP 16; O2SAT 96
--- NOTE | 2018-01-13 02:08 | PD ---
HPI Chief Complaint: Respiratory Symptoms Time Seen by Provider: 01:52 Travel History International Travel<30 days: No Contact w/Intl Traveler<30days: No History of Present Illness HPI The patient is a 67-year-old female who presents to the emergency department via EMS for multiple complaints including extremity shaking, elevated heart rate, cough, and possible C. difficile. The patient states she is currently undergoing treatment for C. difficile and is currently taking vancomycin every other day. She does note she still has intermittent episodes of diarrhea. She also complains of bilateral lower extremity edema that is worse at the end of the day and improved in the morning. She also complains of a dry nonproductive cough with a history of COPD. The patient does use oxygen at home 2-3 L as needed, and continues to smoke several cigarettes per day. The patient does state she had alcohol prior to arrival tonight since it is a day she is not taking vancomycin. The patient states that the tremors in her arms and legs have improved since arrival. She denies any current fever. She denies any current abdominal pain. Symptoms are moderate. The patient does state she is supposed to follow-up with Dr. Contreras in the future regarding her C. difficile. FORMERLY [facility], [facility] Past Medical History Asthma: Yes Cancer: No Cardiovascular Problems: No COPD: Yes Diminished Hearing: No Endocrine: No Gastrointestinal Disorders: No Genitourinary: No Immune Disorder: No Musculoskeletal: No Neurologic: No Psychiatric: No Reproductive: No Respiratory: Yes (copd) ?: Not Menopausal: Yes Tubal Ligation: Yes Past Surgical History Gynecologic Surgery: Yes (Tubal Ligation) Joint Replacement: Yes (LEFT TOTAL HIP) Other Surgery: Yes (VERICOSE VEIN SX) Social History Alcohol Use: Yes ("ONCE IN AWHILE") Tobacco Use: Yes Substance Use: No Allergies-Medications (Allergen,Severity, Reaction): Coded Allergies: No Known Allergies (Verified Allergy, Unknown, 12/09/17) Reported Meds & Prescriptions Reported Meds & Active Scripts Active Megestrol (Megestrol Acetate) 20 Mg Tab 20 Mg PO DAILY Vancomycin (Vancomycin HCl) 125 Mg Cap 125 Mg PO QID After completing the Dificid (Fidaxomicin) on 12/22, start taking 125mg Vancomycin daily for 7 days, then 125mg every other day for 7 days, then 125mg every 3 days until you've finished the prescription. Dificid (Fidaxomicin) 200 Mg Tab 200 Mg PO BID Acidophilus/l-Sporogenes (Lactobacillus Acidophilus) 35 Million Cell-25 Million Cell Tab 1 Tab PO Q12HR [Albuterol-Ipratropium Neb] 1 AMPULE Nebu 1 Ampule NEB Q8HR NEB Ventolin Hfa 18 GM Inh (Albuterol Sulfate) 90 Mcg/Act Aer 2 Puff INH Q4-6H PRN 30 Days Roller Walker (Misc. Devices) 1 Mis Mis Ea .ROUTE NOW With seat if possible. Review of Systems Except as stated in HPI: all other systems reviewed are Neg General / Constitutional: No: Fever Cardiovascular: No: Chest Pain or Discomfort Respiratory: Positive: Cough, Shortness of Breath, Wheezing Gastrointestinal: Positive: Diarrhea, No: Nausea, Vomiting, Abdominal Pain Genitourinary: No: Dysuria Musculoskeletal: Positive: Edema Physical Exam Narrative GENERAL: Awake, alert, pleasant 67-year-old female who appears her stated age and is in no acute respiratory distress. SKIN: Focused skin assessment warm/dry. HEAD: Atraumatic. Normocephalic. EYES: Pupils equal and round. No scleral icterus. No injection or drainage. ENT: No nasal bleeding or discharge. Breath smells of alcohol and tobacco. NECK: Trachea midline. No JVD. CARDIOVASCULAR: Regular rate and rhythm. No murmur appreciated. Heart rate in the 90s. RESPIRATORY: No accessory muscle use. Prolonged expiratory phase with a few scattered wheezes. GASTROINTESTINAL: Abdomen soft, non-tender, nondistended. No guarding or rigidity. MUSCULOSKELETAL: No obvious deformities. No clubbing. No cyanosis. Trace lower extremity pitting edema. NEUROLOGICAL: Awake and alert. No obvious cranial nerve deficits. Motor grossly within normal limits. Normal speech. PSYCHIATRIC: Appropriate mood and affect; insight and judgment normal. Data Data Last Documented VS Vital Signs Date Time Temp Pulse Resp B/P (MAP) Pulse Ox O2 Delivery O2 Flow Rate FiO2 01/13/18 03:04 96 21 01/13/18 02:08 Nasal Cannula 2.00 01/13/18 02:08 16 01/13/18 01:55 97.4 97 144/64 (90) Orders Orders Complete Blood Count With Diff (01/13/18 02:06) Comprehensive Metabolic Panel (01/13/18 02:06) B-Type Natriuretic Peptide (01/13/18 02:06) Magnesium (Mg) (01/13/18 02:06) Ckmb (Isoenzyme) Profile (01/13/18 02:06) Troponin I (01/13/18 02:06) Iv Access Insert/Monitor (01/13/18 02:06) Electrocardiogram (01/13/18 02:06) Ecg Monitoring (01/13/18 02:06) Oximetry (01/13/18 02:06) Oxygen Administration (01/13/18 02:06) Chest, Single Ap (01/13/18 02:06) Sodium Chloride 0.9% Flush (Ns Flush) (01/13/18 02:15) Methylprednisolone So Succ Inj (Solumedr (01/13/18 02:15) Albuterol-Ipratropium Neb (Duoneb Neb) (01/13/18 02:15) Sodium Chlorid 0.9% 500 Ml Inj (Ns 500 M (01/13/18 02:15) Alcohol (Ethanol) (01/13/18 02:11) CKMB (01/13/18 02:11) CKMB% (01/13/18 02:11) Labs Laboratory Tests Test 01/13/18 02:11 White Blood Count 6.7 TH/MM3 Red Blood Count 3.76 MIL/MM3 Hemoglobin 10.1 GM/DL Hematocrit 31.6 % Mean Corpuscular Volume 84.2 FL Mean Corpuscular Hemoglobin 26.9 PG Mean Corpuscular Hemoglobin Concent 31.9 % Red Cell Distribution Width 20.0 % Platelet Count 342 TH/MM3 Mean Platelet Volume 6.4 FL Neutrophils (%) (Auto) 72.0 % Lymphocytes (%) (Auto) 18.8 % Monocytes (%) (Auto) 7.5 % Eosinophils (%) (Auto) 0.9 % Basophils (%) (Auto) 0.8 % Neutrophils # (Auto) 4.8 TH/MM3 Lymphocytes # (Auto) 1.2 TH/MM3 Monocytes # (Auto) 0.5 TH/MM3 Eosinophils # (Auto) 0.1 TH/MM3 Basophils # (Auto) 0.1 TH/MM3 CBC Comment DIFF FINAL Differential Comment Blood Urea Nitrogen 7 MG/DL Creatinine 0.42 MG/DL Random Glucose 74 MG/DL Total Protein 6.7 GM/DL Albumin 3.2 GM/DL Calcium Level 8.6 MG/DL Magnesium Level 1.5 MG/DL Alkaline Phosphatase 81 U/L Aspartate Amino Transf (AST/SGOT) 19 U/L Alanine Aminotransferase (ALT/SGPT) 14 U/L Total Bilirubin 0.3 MG/DL Sodium Level 142 MEQ/L Potassium Level 3.7 MEQ/L Chloride Level 107 MEQ/L Carbon Dioxide Level 21.8 MEQ/L Anion Gap 13 MEQ/L Estimat Glomerular Filtration Rate 150 ML/MIN Total Creatine Kinase 137 U/L Troponin I LESS THAN 0.02 NG/ML B-Type Natriuretic Peptide 33 PG/ML Ethyl Alcohol Level 80 MG/DL [facility] Medical Decision Making Medical Screen Exam Complete: Yes Emergency Medical Condition: Yes Medical Record Reviewed: Yes Interpretation(s) EKG reveals normal sinus rhythm with a rate of 98. Nonspecific ST changes. Last Impressions Chest X-Ray 01/13/18 0206 Signed Impressions: CONCLUSION: No acute intrathoracic disease. Stable examination. Laboratory Tests Test 01/13/18 02:11 White Blood Count 6.7 TH/MM3 Red Blood Count 3.76 MIL/MM3 Hemoglobin 10.1 GM/DL Hematocrit 31.6 % Mean Corpuscular Volume 84.2 FL Mean Corpuscular Hemoglobin 26.9 PG Mean Corpuscular Hemoglobin Concent 31.9 % Red Cell Distribution Width 20.0 % Platelet Count 342 TH/MM3 Mean Platelet Volume 6.4 FL Neutrophils (%) (Auto) 72.0 % Lymphocytes (%) (Auto) 18.8 % Monocytes (%) (Auto) 7.5 % Eosinophils (%) (Auto) 0.9 % Basophils (%) (Auto) 0.8 % Neutrophils # (Auto) 4.8 TH/MM3 Lymphocytes # (Auto) 1.2 TH/MM3 Monocytes # (Auto) 0.5 TH/MM3 Eosinophils # (Auto) 0.1 TH/MM3 Basophils # (Auto) 0.1 TH/MM3 CBC Comment DIFF FINAL Differential Comment Blood Urea Nitrogen 7 MG/DL Creatinine 0.42 MG/DL Random Glucose 74 MG/DL Total Protein 6.7 GM/DL Albumin 3.2 GM/DL Calcium Level 8.6 MG/DL Magnesium Level 1.5 MG/DL Alkaline Phosphatase 81 U/L Aspartate Amino Transf (AST/SGOT) 19 U/L Alanine Aminotransferase (ALT/SGPT) 14 U/L Total Bilirubin 0.3 MG/DL Sodium Level 142 MEQ/L Potassium Level 3.7 MEQ/L Chloride Level 107 MEQ/L Carbon Dioxide Level 21.8 MEQ/L Anion Gap 13 MEQ/L Estimat Glomerular Filtration Rate 150 ML/MIN Total Creatine Kinase 137 U/L Troponin I LESS THAN 0.02 NG/ML B-Type Natriuretic Peptide 33 PG/ML Ethyl Alcohol Level 80 MG/DL Differential Diagnosis Differential diagnosis includes COPD exacerbation, bronchitis, pneumonia, congestive heart failure, alcohol intoxication, pitting edema, hypoalbuminemia, dependent edema, C. difficile. Narrative Course IV was established, labs are drawn and sent, and the patient was placed on cardiac telemetry monitoring and continuous pulse oximetry monitoring. EKG was ordered and interpreted. Chest x-ray was obtained. The patient was administered Solu-Medrol 125 mg intravenously duo nebs 2. The patient's chest x-ray is unremarkable. The patient's troponin and BNP are normal. Electrolytes are unremarkable. Patient's alcohol level was elevated at 80. Patient appears to have a COPD exacerbation, I will write for prednisone and albuterol nebulizers, but no antibiotic with recent C. difficile infection and current vancomycin every other day. She is advised to follow-up with her primary physician. Diagnosis Primary Impression: COPD (chronic obstructive pulmonary disease) Qualified Codes: J44.1 - Chronic obstructive pulmonary disease with (acute) exacerbation Patient Instructions: General Instructions Additional Instructions: Medications as directed. Follow-up with your primary physician. Please provide the patient a copy of her x-ray results and lab results at discharge. Decrease alcohol use. Med/Other Pt SpecificInfo: Prescription(s) given Scripts Albuterol Neb (Albuterol Neb) 2.5 Mg/3 Ml Neb 2.5 MG NEB Q4HR NEB Y for SHORTNESS OF BREATH, #60 NEBULE 0 Refills Prov: Naresh Swanson MD 01/13/18 Prednisone (Prednisone) 20 Mg Tab 40 MG PO DAILY for 4 Days, #8 TAB 0 Refills Take 40 mg (2 tablets) daily for 5 days Prov: Naresh Swanson MD 01/13/18 Disposition: 01 DISCHARGE HOME Condition: Stable Naresh Swanson MD Jan 13, 2018 02:08
[2018-01-13] MEDS ORDERED: SODIUM CHLORID 0.9% 500 ML INJ 500 ML IV ONE (02:15)
[2018-01-13] MEDS ORDERED: SODIUM CHLORIDE 0.9% FLUSH 10 ML FLUSH IVF PRN (02:15)
[2018-01-13] MEDS ORDERED: methylPREDNISolone SOD SUCC 125 MG/2 ML VIAL IV PUSH ONE (02:15)
[2018-01-13 02:27] LABS: AUTOMATED NEUTROPHIL # 4.8 TH/MM3 (1.8-7.7); BASOPHIL # 0.1 TH/MM3 (0-0.2); BASOPHIL % 0.8 % (0.0-2.0); EOSINOPHIL # 0.1 TH/MM3 (0-0.4); EOSINOPHIL % 0.9 % (0.0-4.0); HEMATOCRIT 31.6 % (35.0-46.0); HEMOGLOBIN 10.1 GM/DL (11.6-15.3); LYMPH % 18.8 % (9.0-44.0); LYMPHOCYTE # 1.2 TH/MM3 (1.0-4.8); MEAN CELL VOLUME 84.2 FL (80.0-100.0); MEAN CORPUSCULAR HEMOGLOBIN 26.9 PG (27.0-34.0); MEAN CORPUSCULAR HGB CONC 31.9 % (32.0-36.0); MEAN PLATELET VOLUME 6.4 FL (7.0-11.0); MONO % 7.5 % (0.0-8.0); MONOCYTE # 0.5 TH/MM3 (0-0.9); PLATELET COUNT 342 TH/MM3 (150-450); RED BLOOD COUNT 3.76 MIL/MM3 (4.00-5.30); WHITE BLOOD COUNT 6.7 TH/MM3 (4.0-11.0)
--- NOTE | 2018-01-13 02:28 | RADRPT ---
EXAM DATE: 01/13/2018 2:23 AM EDT AGE/SEX: 67 years / Female INDICATIONS: Short of breath. CLINICAL DATA: This is the patient's initial encounter. Patient reports that signs and symptoms have been present for 1 day and indicates a pain score of 0/10. MEDICAL/SURGICAL HISTORY: None. None. COMPARISON: [facility] – [place], [place], CHEST SINGLE AP, 12/11/2017. . FINDINGS: A single AP view of the chest demonstrates the lungs to be symmetrically aerated without evidence of mass, infiltrate or effusion. The cardiomediastinal contours are unremarkable. Osseous structures a re intact. Old healed bilateral rib fractures. No significant changes. CONCLUSION: No acute intrathoracic disease. Stable examination. Electronically signed by: Cuba Small MD 01/13/2018 2:27 AM EDT
[2018-01-13 02:50] LABS: ALBUMIN 3.2 GM/DL (3.4-5.0); ALT (GPT) 14 U/L (10-53); AST (GOT) 19 U/L (15-37); BICARBONATE 21.8 MEQ/L (21.0-32.0); BLOOD UREA NITROGEN 7 MG/DL (7-18); CALCIUM 8.6 MG/DL (8.5-10.1); CHLORIDE 107 MEQ/L (98-107); CREATININE 0.42 MG/DL (0.50-1.00); GLOMERULAR FILTRATION RATE 150 ML/MIN (>89); GLUCOSE,RANDOM 74 MG/DL (74-106); MAGNESIUM 1.5 MG/DL (1.5-2.5); SODIUM (NA) 142 MEQ/L (136-145)
[2018-01-13 02:54] LABS: ALKALINE PHOSPHATASE 81 U/L (45-117); TOTAL BILIRUBIN ADULT 0.3 MG/DL (0.2-1.0); TOTAL PROTEIN 6.7 GM/DL (6.4-8.2); TROPONIN I LESS THAN 0.02 NG/ML (0.02-0.05)
[2018-01-13 03:04] VITALS: O2SAT 96
[2018-01-13] MEDS: RESP: ALBUTEROL 2.5 MG/IPRATROPIUM 0.5 MG NEB (SCH) INH ×2 (03:04→03:05)
[2018-01-13] MEDS ORDERED: ALBU0.08 NEB (03:44)
[2018-01-13] MEDS ORDERED: PRED20 PO (03:44)
[2018-01-13 07:45] VITALS: BP 146/69; PULSE 99; RESP 20; O2SAT 97
--- NOTE | 2018-01-13 15:31 | EKG ---
Date Performed: 01/13/2018 Time Performed: 04:59:14 PTAGE: 67 years EKG: SINUS TACHYCARDIA POSSIBLE LEFT ATRIAL ENLARGEMENT POSSIBLE RIGHT VENTRICULAR CONDUCTION DE LAY ABNORMAL RHYTHM ECG NO PREVIOUS TRACING Since the prior tracing, patient has developed abnormal R-wave transi tion. This may be a result of reversing leads V2 and V3, but clinical correlation would be advised. DOCTOR: Sandra Fung Interpretating Date/Time 01/13/2018 15:30:17
--- NOTE | 2018-01-13 16:16 | EKG ---
Date Performed: 01/13/2018 Time Performed: 03:25:28 PTAGE: 67 years EKG: Sinus rhythm POSSIBLE LEFT ATRIAL ENLARGEMENT MINIMAL ST DEPRESSION BORDERLINE ECG Since the PREVIOUS TRACING , no significant change noted PREVIOUS TRACING'12/11/2017@1500 DOCTOR: Sandra Fung Interpretating Date/Time 01/13/2018 16:16:06
== END 2018-01-13 10:52 | disposition home or self-care (01) ==
LOC: NEPE 01:02
DX: J44.1 Chronic obstructive pulmonary disease with (acute) exacerbation (principal); R94.31 Abnormal electrocardiogram [ECG] [EKG]; R06.02 Shortness of breath; R19.7 Diarrhea, unspecified; R25.1 Tremor, unspecified; Z72.0 Tobacco use; Z72.89 Other problems related to lifestyle; Y90.4 Blood alcohol level of 80-99 mg/100 ml
CPT/HCPCS: 71045; 80053; 80307; 82550; 82552; 83735; 83880; 84484; 85025; 93005; 94640; 94664; 96361; 96374; 99285; J2930; J7040

== ENCOUNTER 2018-01-19 21:08 | Emergency (ER) | payer OTHER ==
[~2018-01-19] VITALS: Ht 160 cm; Wt 41.0 kg
[~2018-01-19 21:08] MED LIST changes: +ALBU0.08 NEB; +PRED20 PO
[2018-01-19 21:17] VITALS: BP 132/69; PULSE 88; RESP 18; TEMP 98.8; O2SAT 97
--- NOTE | 2018-01-19 22:34 | RADRPT ---
EXAM DATE: 01/19/2018 10:25 PM EDT AGE/SEX: 67 years / Female INDICATIONS: Short of breath CLINICAL DATA: This is the patient's initial encounter. Patient reports that signs and symptoms have been present for 1 day and indicates a pain score of 0/10. MEDICAL/SURGICAL HISTORY: Chronic obstructive pulmonary disease. . COMPARISON: [facility] [place] CHEST SINGLE AP, 01/13/2018. . FINDINGS: The lungs are clear without infiltrate, nodule, or mass. There is no appreciable pleural effusion fo r technique. Heart and mediastinum are unremarkable. There are old healed rib fractures on the left. CONCLUSION: No acute cardiopulmonary disease. Electronically signed by: Derek Delarosa MD 01/19/2018 10:33 PM EDT
[2018-01-19 22:46] LABS: AUTOMATED NEUTROPHIL # 2.3 TH/MM3 (1.8-7.7); BASOPHIL % 1.2 % (0.0-2.0); EOSINOPHIL # 0.1 TH/MM3 (0-0.4); EOSINOPHIL % 3.7 % (0.0-4.0); HEMOGLOBIN 10.5 GM/DL (11.6-15.3); LYMPH % 29.7 % (9.0-44.0); LYMPHOCYTE # 1.2 TH/MM3 (1.0-4.8); MEAN CELL VOLUME 85.2 FL (80.0-100.0); MEAN CORPUSCULAR HEMOGLOBIN 27.2 PG (27.0-34.0); MEAN CORPUSCULAR HGB CONC 31.9 % (32.0-36.0); MEAN PLATELET VOLUME 6.7 FL (7.0-11.0); MONO % 8.2 % (0.0-8.0); MONOCYTE # 0.3 TH/MM3 (0-0.9); NEUT % 57.2 % (16.0-70.0); PLATELET COUNT 186 TH/MM3 (150-450); RED BLOOD COUNT 3.87 MIL/MM3 (4.00-5.30)
[2018-01-19 22:59] LABS: BICARBONATE 24.7 MEQ/L (21.0-32.0); BLOOD UREA NITROGEN 10 MG/DL (7-18); CALCIUM 8.3 MG/DL (8.5-10.1); CHLORIDE 111 MEQ/L (98-107); GLOMERULAR FILTRATION RATE 123 ML/MIN (>89); GLUCOSE,RANDOM 73 MG/DL (74-106); SODIUM (NA) 146 MEQ/L (136-145)
[2018-01-19 23:04] LABS: TROPONIN I LESS THAN 0.02 NG/ML (0.02-0.05)
[2018-01-19] MEDS ORDERED: Albuterol-Ipratropium Neb NEB (23:40)
[2018-01-19] MEDS ORDERED: RESP: ALBUTEROL 2.5 MG/IPRATROPIUM 0.5 MG NEB (SCH) NEB ONE (23:45)
[2018-01-19] MEDS ORDERED: DEXAMETHASONE SOD PHOS 20 MG/5 ML VIAL IV PUSH ONE (23:45)
--- NOTE | 2018-01-19 23:58 | PD ---
HPI Chief Complaint: Alcohol/Drug Intoxication Time Seen by Provider: 22:04 Travel History International Travel<30 days: No Contact w/Intl Traveler<30days: No Traveled to known affect area: No History of Present Illness HPI 67-year-old white female presents emergency department by EMS for evaluation of shortness of breath. Patient states that she is on 2-3 L of oxygen normally at home. She was just seen in the ER last week for an episode similar nature. She had a complete workup including chest x-ray, CK, troponin, BNP. Patient was sent home with steroids and albuterol. The patient states that she has noted her heart rate to go up when she does activities. She also states that when she walks from one room to another she comes acutely short of breath. She does report not wearing her oxygen during those periods of time. Patient also goes on to state that she drank some alcohol earlier today. She denies any shortness of breath at rest. She is currently getting home occupational and physical therapy. She lives with her . She denies any chest pain. No nausea vomiting. No fever chills. No abdominal pain or urinary symptoms. PFSH Past Medical History Asthma: Yes Cancer: No Cardiovascular Problems: No COPD: Yes Diminished Hearing: No Endocrine: No Gastrointestinal Disorders: No Genitourinary: No Immune Disorder: No Implanted Vascular Access Dvce: Yes Medical other: Yes (c. diff) Musculoskeletal: No Neurologic: No Psychiatric: No Reproductive: No Respiratory: Yes (copd) Pneumonia: Yes Menopausal: Yes Tubal Ligation: Yes Past Surgical History Gynecologic Surgery: Yes (Tubal Ligation) Joint Replacement: Yes (LEFT TOTAL HIP) Other Surgery: Yes (VERICOSE VEIN SX) Social History Alcohol Use: Yes ("ONCE IN AWHILE") Tobacco Use: Yes (3 cigs per day) Substance Use: No Allergies-Medications (Allergen,Severity, Reaction): Coded Allergies: No Known Allergies (Verified Allergy, Unknown, 12/09/17) Reported Meds & Prescriptions Reported Meds & Active Scripts Active [Albuterol-Ipratropium Neb] 1 AMPULE Nebu 1 Ampule NEB Q6HR WHILE AWAKE NEB Albuterol Neb (Albuterol Sulfate) 2.5 Mg/3 Ml Neb 2.5 Mg NEB Q4HR NEB PRN Megestrol (Megestrol Acetate) 20 Mg Tab 20 Mg PO DAILY Acidophilus/l-Sporogenes (Lactobacillus Acidophilus) 35 Million Cell-25 Million Cell Tab 1 Tab PO Q12HR Ventolin Hfa 18 GM Inh (Albuterol Sulfate) 90 Mcg/Act Aer 2 Puff INH Q4-6H PRN 30 Days Roller Walker (Misc. Devices) 1 Mis Mis Ea .ROUTE NOW With seat if possible. Review of Systems General / Constitutional: No: Fever Eyes: No: Visual changes HENT: No: Headaches Cardiovascular: Positive: Tachycardia, Dyspnea on exertion, No: Chest Pain or Discomfort Respiratory: Positive: Cough, Shortness of Breath Gastrointestinal: Positive: Diarrhea, No: Nausea, Vomiting, Abdominal Pain Genitourinary: No: Dysuria Musculoskeletal: Positive: Arthralgias, No: Pain Skin: No Rash Neurologic: No: Weakness Psychiatric: No: Depression Endocrine: No: Polydipsia Hematologic/Lymphatic: Positive: Easy Bruising Physical Exam Narrative GENERAL: Well-developed, well-nourished in no apparent distress. Nontoxic appearing. Patient is on 2 L of O2. HEAD: Normocephalic, atraumatic. EYES: Pupils equal round and reactive. Extraocular motions intact. No scleral icterus. No injection or drainage. ENT: Nose clear. Throat without erythema, tonsillar hypertrophy or exudate. Uvula midline. Airway patent. NECK: Trachea midline. Supple, nontender, moves head freely. No central bony tenderness or spasm. CARDIOVASCULAR: Regular rate and rhythm without murmurs, gallops, or rubs. RESPIRATORY: Decreased air movement. Few scattered rhonchi. No wheezes or rales. GASTROINTESTINAL: Abdomen soft, non-tender, nondistended. No hepato-splenomegaly , or palpable masses. No guarding. EXTREMITIES: No clubbing, cyanosis, or edema. No joint tenderness. Patient has few areas of ecchymosis in various stages of healing. BACK: Nontender without deformity. No flank tenderness. NEUROLOGICAL: Awake, alert and oriented x 3 .Cranial nerves grossly intact. Motor and sensory grossly within normal limits. Normal speech. Data Data Last Documented VS Vital Signs Date Time Temp Pulse Resp B/P (MAP) Pulse Ox O2 Delivery O2 Flow Rate FiO2 01/20/18 00:05 100 Nasal Cannula 2.00 01/19/18 21:17 98.8 88 18 132/69 (90) Orders Orders Electrocardiogram (01/19/18 22:15) Complete Blood Count With Diff (01/19/18 22:15) Basic Metabolic Panel (Bmp) (01/19/18 22:15) Troponin I (01/19/18 22:15) B-Type Natriuretic Peptide (01/19/18 22:15) Chest, Single Ap (01/19/18 22:15) Iv Access Insert/Monitor (01/19/18 22:15) Ecg Monitoring (01/19/18 22:15) Oxygen Administration (01/19/18 22:15) Oximetry (01/19/18 22:15) Alcohol (Ethanol) (01/19/18 22:15) Dexamethasone Inj (Decadron Inj) (01/19/18 23:45) Albuterol-Ipratropium Neb (Duoneb Neb) (01/19/18 23:45) Labs Laboratory Tests Test 01/19/18 22:33 White Blood Count 4.0 TH/MM3 Red Blood Count 3.87 MIL/MM3 Hemoglobin 10.5 GM/DL Hematocrit 33.0 % Mean Corpuscular Volume 85.2 FL Mean Corpuscular Hemoglobin 27.2 PG Mean Corpuscular Hemoglobin Concent 31.9 % Red Cell Distribution Width 22.0 % Platelet Count 186 TH/MM3 Mean Platelet Volume 6.7 FL Neutrophils (%) (Auto) 57.2 % Lymphocytes (%) (Auto) 29.7 % Monocytes (%) (Auto) 8.2 % Eosinophils (%) (Auto) 3.7 % Basophils (%) (Auto) 1.2 % Neutrophils # (Auto) 2.3 TH/MM3 Lymphocytes # (Auto) 1.2 TH/MM3 Monocytes # (Auto) 0.3 TH/MM3 Eosinophils # (Auto) 0.1 TH/MM3 Basophils # (Auto) 0.0 TH/MM3 CBC Comment DIFF FINAL Differential Comment Blood Urea Nitrogen 10 MG/DL Creatinine 0.50 MG/DL Random Glucose 73 MG/DL Calcium Level 8.3 MG/DL Sodium Level 146 MEQ/L Potassium Level 3.8 MEQ/L Chloride Level 111 MEQ/L Carbon Dioxide Level 24.7 MEQ/L Anion Gap 10 MEQ/L Estimat Glomerular Filtration Rate 123 ML/MIN Troponin I LESS THAN 0.02 NG/ML B-Type Natriuretic Peptide 24 PG/ML Ethyl Alcohol Level 288 MG/DL [facility] Medical Decision Making Medical Screen Exam Complete: Yes Emergency Medical Condition: Yes Medical Record Reviewed: Yes Interpretation(s) EKG: Sinus rhythm with a ventricular rate of 87. Questionable borderline right atrial enlargement. There is an RSR in V1 and V2 consistent with borderline intraventricular conduction delay. No acute ST-T wave changes. Laboratory Tests Test 01/19/18 22:33 White Blood Count 4.0 TH/MM3 Red Blood Count 3.87 MIL/MM3 Hemoglobin 10.5 GM/DL Hematocrit 33.0 % Mean Corpuscular Volume 85.2 FL Mean Corpuscular Hemoglobin 27.2 PG Mean Corpuscular Hemoglobin Concent 31.9 % Red Cell Distribution Width 22.0 % Platelet Count 186 TH/MM3 Mean Platelet Volume 6.7 FL Neutrophils (%) (Auto) 57.2 % Lymphocytes (%) (Auto) 29.7 % Monocytes (%) (Auto) 8.2 % Eosinophils (%) (Auto) 3.7 % Basophils (%) (Auto) 1.2 % Neutrophils # (Auto) 2.3 TH/MM3 Lymphocytes # (Auto) 1.2 TH/MM3 Monocytes # (Auto) 0.3 TH/MM3 Eosinophils # (Auto) 0.1 TH/MM3 Basophils # (Auto) 0.0 TH/MM3 CBC Comment DIFF FINAL Differential Comment Blood Urea Nitrogen 10 MG/DL Creatinine 0.50 MG/DL Random Glucose 73 MG/DL Calcium Level 8.3 MG/DL Sodium Level 146 MEQ/L Potassium Level 3.8 MEQ/L Chloride Level 111 MEQ/L Carbon Dioxide Level 24.7 MEQ/L Anion Gap 10 MEQ/L Estimat Glomerular Filtration Rate 123 ML/MIN Troponin I LESS THAN 0.02 NG/ML B-Type Natriuretic Peptide 24 PG/ML Ethyl Alcohol Level 288 MG/DL Last 24 hours Impressions Chest X-Ray 01/19/18 6589 Signed Impressions: CONCLUSION: No acute cardiopulmonary disease. Differential Diagnosis differential diagnosis:Asthma, pneumonia, COPD, CHF, alcoholism, electrolyte abnormality Narrative Course DuoNeb along with 10 mg of Decadron IV. Patient's laboratory tests including CBC, chemistry, troponin, BNP and chest are very have been reviewed. The patient is resting comfortable in examination room. Her EtOH level is 288. She does not have a ride to go home until the morning. She states that her can pick her up in the morning but he does not drive this late at night. Patient is resting comfortable. She does not appear to be in any acute distress. The patient will be discharged in the morning with prescription for duo nebs. She is also instructed to avoid alcohol and to follow-up with her primary care doctor for further management of her COPD. This is oxygen dependent COPD, alcohol intoxication Diagnosis Primary Impression: Oxygen dependent COPD Additional Impressions: Alcohol intoxication Alcoholism Patient Instructions: General Instructions Additional Instructions: Rest. Avoid alcohol. DuoNeb treatments 4 times daily. Follow-up with your primary care doctor in the next 2-3 days for recheck. Usual oxygen even when you are doing limited activity such as going to the bathroom. Return to the ER for any problems. Med/Other Pt SpecificInfo: Prescription(s) given Scripts [Albuterol-Ipratropium Neb] 1 AMPULE NEBU No Conflict Check 1 AMPULE NEB Q6HR WHILE AWAKE NEB, #1 BOX Prov: Maki Costello MD 01/19/18 Disposition: 01 DISCHARGE HOME Condition: Stable Tiago Taylor Jan 19, 2018 23:58
[2018-01-20 00:05] VITALS: O2SAT 100
[2018-01-20] MEDS: RESP: ALBUTEROL 2.5 MG/IPRATROPIUM 0.5 MG NEB (SCH) INH (06:12)
[2018-01-20 07:04] VITALS: BP 157/72; PULSE 80; RESP 18; TEMP 98.6; O2SAT 98
--- NOTE | 2018-01-20 14:24 | EKG ---
Date Performed: 01/19/2018 Time Performed: 23:00:16 PTAGE: 67 years EKG: Sinus rhythm POSSIBLE RIGHT VENTRICULAR CONDUCTION DELAY BORDERLINE ECG Compared to prior electrocardiogram, R wa ve progression is normalized. This could be due to changes in the placement and clinical correlation suggested. PREVIOUS TRACING : 01/13/2018 04.59 DOCTOR: Matthew Kenny Interpretating Date/Time 01/20/2018 14:23:15
[2018-01-21] MEDS ORDERED: IPRASOL NEB (10:41)
== END 2018-01-20 07:16 | disposition home or self-care (01) ==
LOC: NEPD 21:08
DX: J44.9 Chronic obstructive pulmonary disease, unspecified (principal); F10.229 Alcohol dependence with intoxication, unspecified; Y90.8 Blood alcohol level of 240 mg/100 ml or more; R94.31 Abnormal electrocardiogram [ECG] [EKG]; Z99.81 Dependence on supplemental oxygen; F17.210 Nicotine dependence, cigarettes, uncomplicated; Z79.899 Other long term (current) drug therapy
CPT/HCPCS: 71045; 80048; 80307; 83880; 84484; 85025; 93005; 94640; 94664; 96374; 99284; J1100

== ENCOUNTER 2018-01-20 18:25 | Inpatient (IN) | payer OTHER, MEDICARE ==
[~2018-01-20] VITALS: Ht 165.1 cm; Wt 64.4 kg
[2018-01-20 18:45] VITALS: PULSE 100; RESP 18; TEMP 98.6; O2SAT 97
--- NOTE | 2018-01-20 20:00 | PD ---
HPI Chief Complaint: Psychiatric Symptoms Time Seen by Provider: 19:20 Travel History International Travel<30 days: No Contact w/Intl Traveler<30days: No Traveled to known affect area: No History of Present Illness HPI Patient is a 67-year-old female presents emergency department under Brown act. Patient states that she feels suicidal because of her medical ailments. She suffers from C. difficile colitis chronically over the past few months, also has a history of COPD and states she is dependent on oxygen at home. She was actually in the emergency department yesterday for shortness of breath and was deemed stable for discharge. She does endorse some alcohol ingestion tonight. She states she has not smoked since September. According to the Brown act the patient attempted to smother herself with a pillow prior to arrival here. Patient states that she is just feeling awful all over which is chronic for her. No increased shortness of breath no increased abdominal cramping or discomfort. States symptoms are moderate, context as above, duration unknown, associated signs symptoms as above. PFSH Past Medical History Asthma: Yes Cancer: No Cardiovascular Problems: No COPD: Yes Diminished Hearing: No Endocrine: No Gastrointestinal Disorders: No Genitourinary: No Immune Disorder: No Implanted Vascular Access Dvce: Yes Musculoskeletal: No Neurologic: No Psychiatric: No Reproductive: No Respiratory: Yes (copd) Pneumonia: Yes Menopausal: Yes Tubal Ligation: Yes Past Surgical History Gynecologic Surgery: Yes (Tubal Ligation) Joint Replacement: Yes (LEFT TOTAL HIP) Other Surgery: Yes (VERICOSE VEIN SX) Social History Alcohol Use: Yes (DAILY WHISKEY) Tobacco Use: Yes (3 cigs per day) Substance Use: No Allergies-Medications (Allergen,Severity, Reaction): Coded Allergies: No Known Allergies (Verified Allergy, Unknown, 01/20/18) Reported Meds & Prescriptions Reported Meds & Active Scripts Active [Albuterol-Ipratropium Neb] 1 AMPULE Nebu 1 Ampule NEB Q6HR WHILE AWAKE NEB Albuterol Neb (Albuterol Sulfate) 2.5 Mg/3 Ml Neb 2.5 Mg NEB Q4HR NEB PRN Megestrol (Megestrol Acetate) 20 Mg Tab 20 Mg PO DAILY Acidophilus/l-Sporogenes (Lactobacillus Acidophilus) 35 Million Cell-25 Million Cell Tab 1 Tab PO Q12HR Ventolin Hfa 18 GM Inh (Albuterol Sulfate) 90 Mcg/Act Aer 2 Puff INH Q4-6H PRN 30 Days Roller Walker (Misc. Devices) 1 Mis Mis Ea .ROUTE NOW With seat if possible. Review of Systems Except as stated in HPI: all other systems reviewed are Neg Physical Exam Narrative GENERAL: Well-developed thin no obvious distress, smells of alcohol, walking about the room in no distress without oxygen on. Saturating 100% without oxygen on. SKIN: Focused skin assessment warm/dry. HEAD: Atraumatic. Normocephalic. EYES: Pupils equal and round. No scleral icterus. No injection or drainage. ENT: No nasal bleeding or discharge. Mucous membranes pink and moist. NECK: Trachea midline. No JVD. CARDIOVASCULAR: Regular rate and rhythm. No murmur appreciated. RESPIRATORY: No accessory muscle use. Clear to auscultation. Breath sounds equal bilaterally. GASTROINTESTINAL: Abdomen soft, non-tender, nondistended. Hepatic and splenic margins not palpable. MUSCULOSKELETAL: No obvious deformities. No clubbing. No cyanosis. No edema. NEUROLOGICAL: Awake and alert. No obvious cranial nerve deficits. Motor grossly within normal limits. Normal speech. PSYCHIATRIC: Endorses suicidal ideation with planning, denies homicidal ideation denies audiovisual hallucinations. Data Data Last Documented VS Vital Signs Date Time Temp Pulse Resp B/P (MAP) Pulse Ox O2 Delivery O2 Flow Rate FiO2 01/21/18 00:12 85 18 121/62 (81) 98 Room Air 01/20/18 18:45 98.6 Orders Orders Complete Blood Count With Diff (01/20/18 19:32) Comprehensive Metabolic Panel (01/20/18 19:32) Thyroid Stimulating Hormone (01/20/18 19:32) Psych Screen (01/20/18 19:32) Drug Screen, Random Urine (01/20/18 19:32) Alcohol (Ethanol) (01/20/18 19:32) Blood Gas Venous (Vbg) (01/20/18 19:32) Labs Laboratory Tests Test 01/20/18 19:50 01/20/18 20:00 01/20/18 21:19 Urine Opiates Screen NEG Urine Barbiturates Screen NEG Urine Amphetamines Screen NEG Urine Benzodiazepines Screen NEG Urine Cocaine Screen NEG Urine Cannabinoids Screen NEG White Blood Count 1.8 TH/MM3 Red Blood Count 3.40 MIL/MM3 Hemoglobin 9.4 GM/DL Hematocrit 29.2 % Mean Corpuscular Volume 85.8 FL Mean Corpuscular Hemoglobin 27.6 PG Mean Corpuscular Hemoglobin Concent 32.2 % Red Cell Distribution Width 21.7 % Platelet Count 164 TH/MM3 Mean Platelet Volume 6.9 FL Neutrophils (%) (Auto) 62.8 % Lymphocytes (%) (Auto) 25.5 % Monocytes (%) (Auto) 11.1 % Eosinophils (%) (Auto) 0.0 % Basophils (%) (Auto) 0.6 % Neutrophils # (Auto) 1.1 TH/MM3 Lymphocytes # (Auto) 0.5 TH/MM3 Monocytes # (Auto) 0.2 TH/MM3 Eosinophils # (Auto) 0.0 TH/MM3 Basophils # (Auto) 0.0 TH/MM3 CBC Comment AUTO DIFF Differential Total Cells Counted 100 Neutrophils % (Manual) 58 % Band Neutrophils % 4 % Lymphocytes % 31 % Monocytes % 6 % Neutrophils # (Manual) 1.1 TH/MM3 Metamyelocytes 1 % Nucleated Red Blood Cells 1 /100 WBC Differential Comment FINAL DIFF MANUAL Atypical Lymphocytes % Platelet Estimate NORMAL Platelet Morphology Comment NORMAL Target Cells 1+ Ovalocytes 1+ Blood Urea Nitrogen 10 MG/DL Creatinine 0.56 MG/DL Random Glucose 186 MG/DL Total Protein 6.7 GM/DL Albumin 3.4 GM/DL Calcium Level 8.6 MG/DL Alkaline Phosphatase 78 U/L Aspartate Amino Transf (AST/SGOT) 39 U/L Alanine Aminotransferase (ALT/SGPT) 17 U/L Total Bilirubin 0.2 MG/DL Sodium Level 143 MEQ/L Potassium Level 3.5 MEQ/L Chloride Level 106 MEQ/L Carbon Dioxide Level 21.4 MEQ/L Anion Gap 16 MEQ/L Estimat Glomerular Filtration Rate 108 ML/MIN Thyroid Stimulating Hormone 3rd Gen 0.102 uIU/ML Ethyl Alcohol Level 256 MG/DL Blood Gas Puncture Site CENTRAL LINE Blood Gas Patient Temperature 98.6 Venous Blood pH 7.43 Venous Blood Partial Pressure CO2 35 mmHg Venous Blood Partial Pressure O2 94 mmHg Venous Blood HCO3 23 mmol/L Venous Blood Oxygen Saturation 93 % Venous Blood Oxygen Content 11.1 Vol % Venous Blood Base Excess -1.1 mmol/L Oxygen Delivery Device NASAL CANNULA Blood Gas Liter Flow 1 L/M MDM Medical Decision Making Medical Screen Exam Complete: Yes Emergency Medical Condition: Yes Differential Diagnosis Suicidal ideation, adjustment disorder, depression, hypercapnia and unlikely, hypoxia likely, acute medical emergency highly unlikely. Narrative Course Patient room to the emergency department, she appears to be chronically ill but not acutely ill. Patient's labs are reviewed and they do show a decreased white blood cell count but this is stable to be worked up as an outpatient, otherwise her labs are reassuring peer, VBG was obtained showing no acute CO2 retention. She has no complaints of warrant further medical workup at this time. Patient is medically cleared for psychiatric evaluation. Diagnosis Primary Impression: Depression Additional Impressions: Suicidal ideation Alcohol intoxication Condition: Stable Javier Slater MD Jan 20, 2018 20:00
[2018-01-20 20:26] LABS: AUTOMATED NEUTROPHIL # 1.1 TH/MM3 (1.8-7.7); BASOPHIL % 0.6 % (0.0-2.0); HEMATOCRIT 29.2 % (35.0-46.0); HEMOGLOBIN 9.4 GM/DL (11.6-15.3); LYMPH % 25.5 % (9.0-44.0); LYMPHOCYTE # 0.5 TH/MM3 (1.0-4.8); MEAN CELL VOLUME 85.8 FL (80.0-100.0); MEAN CORPUSCULAR HEMOGLOBIN 27.6 PG (27.0-34.0); MEAN CORPUSCULAR HGB CONC 32.2 % (32.0-36.0); MEAN PLATELET VOLUME 6.9 FL (7.0-11.0); MONO % 11.1 % (0.0-8.0); MONOCYTE # 0.2 TH/MM3 (0-0.9); NEUT % 62.8 % (16.0-70.0); PLATELET COUNT 164 TH/MM3 (150-450); RED CELL DISTRIBUTION WIDTH 21.7 % (11.6-17.2); WHITE BLOOD COUNT 1.8 TH/MM3 (4.0-11.0)
[2018-01-20 21:08] LABS: ALBUMIN 3.4 GM/DL (3.4-5.0); ALKALINE PHOSPHATASE 78 U/L (45-117); ALT (GPT) 17 U/L (10-53); AST (GOT) 39 U/L (15-37); BICARBONATE 21.4 MEQ/L (21.0-32.0); BLOOD UREA NITROGEN 10 MG/DL (7-18); CALCIUM 8.6 MG/DL (8.5-10.1); CHLORIDE 106 MEQ/L (98-107); CREATININE 0.56 MG/DL (0.50-1.00); GLOMERULAR FILTRATION RATE 108 ML/MIN (>89); GLUCOSE,RANDOM 186 MG/DL (74-106); SODIUM (NA) 143 MEQ/L (136-145); TOTAL BILIRUBIN ADULT 0.2 MG/DL (0.2-1.0); TOTAL PROTEIN 6.7 GM/DL (6.4-8.2)
[2018-01-20 21:32] LABS: BANDS 4 % (0-6); CORRECTED NUCLEATED RBC 1 /100 WBC (0-0); METAMYELOCYTES 1 % (0-1); MONOCYTES 6 % (0-8); NEUTROPHIL # MANUAL DIFF 1.1 TH/MM3 (1.8-7.7); NUCLEATED RED BLOOD CELL 1 (0-0); POLYS (SEG NEUTROPHILS) 58 % (16-70)
[2018-01-20 21:33] LABS: LYMPHOCYTES 31 % (9-44)
[2018-01-20 21:34] LABS: TARGET CELLS 1+ (NORMAL)
[2018-01-20 21:35] LABS: OVALOCYTES 1+ (NORMAL)
[2018-01-21 00:12] VITALS: BP 121/62; PULSE 85; RESP 18; O2SAT 98
[2018-01-21 04:20] VITALS: BP 125/60; PULSE 80; RESP 20; O2SAT 98
[2018-01-21 07:52] VITALS: BP 127/61; PULSE 79; RESP 19; O2SAT 97
[2018-01-21] MEDS ORDERED: LORazepam 1 MG TAB PO PRN (08:45)
[2018-01-21] MEDS ORDERED: LORazepam 2 MG TAB PO PRN (08:45)
[2018-01-21] MEDS ORDERED: FLUMAZENIL 0.5 MG/5 ML VIAL IV PUSH PRN (08:45)
[2018-01-21] MEDS ORDERED: LORazepam 2 MG/ML VIAL IM PRN ×4 (08:45)
--- NOTE | 2018-01-21 08:53 | HHI.HP ---
Provisional Diagnosis Admission Date 01/21/18 [place] I. 1. Major depressive disorder, single episode, moderate Rule out component of mood disorder secondary to general medical condition, namely hypothyroidism [place] II. Deferred Certification of Person's Competence To Provide Express and Informed Consent I have personally examined Genevieve Bowens , a person being served at [facility] on, Jan 21, 2018 08:43. Express and informed consent means consent voluntarily given in writing, by a competent person, after sufficient explanation and disclosure of the subject matter involved to enable the person to make a knowing and willful decision without any element of force, fraud, deceit, duress, or other form of constraint or coercion. This person is 18 years of age or older, is not now known to be incompetent to consent to treatment with a guardian advocate, and does not have a health care surrogate or proxy currently making medical treatment decisions. I have found this person to be one of the following: [x] Competent to provide express and informed consent, as defined above, for voluntary admission to this facility and is competent to provide express and informed consent for treatment. He/she has the consistent capacity to make well reasoned, willful, and knowing decisions concerning his or her medical or mental health treatment. The person fully and consistently understands the purpose of the admission for examination/placement and is fully capable of personally exercising all rights [place] Incompetent to provide express and informed consent to voluntary admission, and this is incompetent to provide express and informed consent to treatment. The person must be transferred to involuntary status and a petition for a guardian advocate filed with the Circuit Court. [] Refusing to provide express and informed consent to voluntary admission but is competent to provide express and informed consent for treatment. The person must be discharged or transferred to involuntary status. Form shall be completed within 24 hours of a person's arrival at the receiving facility and filed in the clinical record of each person: 1. Admitted on a voluntary basis 2. Permitted to provide express and informed consent to his/her own treatment 3. Allowed to transfer from involuntary to voluntary status 4. Prior to permitting a person to consent to his or her own treatment after having been previously found incompetent to consent to treatment. History of Present Illness Capacity: Has Capacity Psych Chief Complaint: Brown act HPI Ms. Bowens is a 67-year-old female with no reported past psychiatric history who presents under a Brown act by [place] [employer] alleging that the patient said that she "no longer could take it and want to commit suicide." Brown act alleges that the patient attempted to smother herself with a pillow while in front of the officer. Of note, patient's alcohol level was elevated at 256 on presentation here. Reviewing the electronic medical record, I see no previous psychiatric contact within our system. Patient seen and examined. Chart reviewed. Case discussed with staff in the ED. On my examination this morning, the patient is clinically sober with no evidence of withdrawal. She says that she had been doing fine "up until I got sick in September. Everything has just caught up to me. I feel like I am going to explode." In addition to low mood, the patient endorses hopeless and worthless feelings. She endorses poor sleep and poor appetite. She does deny trying to smother herself with a pillow and denies suicidal ideation presently, although it is unclear whether she is reliable to contract for safety. No homicidal ideation. No hypomanic or manic symptoms. Denies audiovisual hallucinations. I can elicit no delusional material. The remainder of the psychiatric ROS is negative. No acute physical complaints. Past psychiatric history: Patient denies a history of psychiatric diagnosis. She denies a history of inpatient or outpatient psychiatric treatment. She denies any history of suicide attempts. Family history: The patient denies any family history of mental illness or suicide. Chemical dependency history: Patient reports that she is only a sporadic drinker. She says that yesterday she drank between 8 and 12 ounces of whiskey from a red Solo cup. She denies any other substance use. No reported history of DTs or seizures. Social history: Patient is from [place]. She is . She has children who are grown and live in [place]. She is high school educated. 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 She served in the [email or web address]. She denies any legal history. Denies any access to guns or firearms. She is a [employer]. Denies any history of abuse or mistreatment. Review of Systems Except as stated in HPI: all other systems reviewed are Neg Past Family Social History Coded Allergies: No Known Allergies (Verified Allergy, Unknown, 01/20/18) Past Medical History Includes a history of chronic C. difficile. See electronic medical record. Active Scripts [Albuterol-Ipratropium Neb] 1 AMPULE NEBU No Conflict Check, 1 AMPULE NEB Q6HR WHILE AWAKE NEB, #1 BOX Prov:Maki Costello MD 01/19/18 Albuterol Neb (Albuterol Neb) 2.5 Mg/3 Ml Neb, 2.5 MG NEB Q4HR NEB Y for SHORTNESS OF BREATH, #60 NEBULE 0 Refills Prov:Naresh Swanson MD 01/13/18 Megestrol (Megestrol) 20 Mg Tab, 20 MG PO DAILY, #30 TAB 0 Refills Prov:Costa Carey MD R1 12/15/17 Lactobacillus Acidophilus (Acidophilus/l-Sporogenes) 35 Million Cell-25 Million Cell Tab, 1 TAB PO Q12HR, #60 TAB Prov:Costa Carey MD R1 12/15/17 Albuterol 18 GM Inh (Ventolin Hfa 18 GM Inh) 90 Mcg/Act Aer, 2 PUFF INH Q4-6H Y for SHORTNESS OF BREATH for 30 Days, #1 INHALER 0 Refills Prov:Costa Carey MD R1 12/15/17 Misc. Devices (Roller Walker) 1 Mis Mis, EA .ROUTE NOW for debility, #1 0 Refills With seat if possible. Prov:Pino Giang MD, R3 07/24/17 Discontinued Scripts Prednisone (Prednisone) 20 Mg Tab, 40 MG PO DAILY for 4 Days, #8 TAB 0 Refills Take 40 mg (2 tablets) daily for 5 days Prov:Naresh Swanson MD 01/13/18 Vancomycin (Vancomycin) 125 Mg Cap, 125 MG PO QID for Infection, #13 CAP 0 Refills After completing the Dificid (Fidaxomicin) on 12/22, start taking 125mg Vancomycin daily for 7 days, then 125mg every other day for 7 days, then 125mg every 3 days until you've finished the prescription. Prov:Costa Carey MD R1 12/15/17 Fidaxomicin (Dificid) 200 Mg Tab, 200 MG PO BID, #11 TAB Prov:Costa Carey MD R1 12/15/17 Current Medications Medications (Trade) Dose Ordered Sig/Nikhil Route Start Time Stop Time Status Last Admin (Tylenol) 650 mg Q4H PRN PO 01/21/18 08:45 UNV (Milk Of Magnesia Liq) 30 ml DAILY PRN PO 01/21/18 08:45 UNV (Mag-Al Plus Susp Liq) 30 ml Q6H PRN PO 01/21/18 08:45 UNV (Habitrol 21 Mg Patch.24 Hr) 1 patch DAILY PRN T-DERMAL 01/21/18 08:45 UNV (Atarax) 25 mg Q6H PRN PO 01/21/18 08:45 UNV (Folate) 1 mg DAILY PO 01/21/18 09:00 01/26/18 08:59 UNV (Vitamin B1) 100 mg DAILY PO 01/21/18 09:00 UNV (Theragran M Tab) 1 tab DAILY PO 01/21/18 09:00 01/26/18 08:59 UNV (Romazicon Inj) 0.2 mg Q1M PRN IV PUSH 01/21/18 08:45 UNV (Ativan) 1 mg Q4H PRN PO 01/21/18 08:45 UNV (Ativan Inj) 1 mg Q4H PRN IM 01/21/18 08:45 UNV (Ativan) 2 mg Q2H PRN PO 01/21/18 08:45 UNV (Ativan Inj) 2 mg Q2H PRN IM 01/21/18 08:45 UNV (Ativan Inj) 2 mg Q1H PRN IM 01/21/18 08:45 UNV (Ativan Inj) 2 mg Q15M PRN IM 01/21/18 08:45 UNV (Remeron) 15 mg HS PO 01/21/18 21:00 UNV Patient's Strengths (min. 2) In a monitored setting. Verbally fluent. Physical Exam Physical exam was completed by the ED provider. On my examination today, the patient appears to be in no acute physical distress. No motor abnormalities noted. No signs of intoxication or withdrawal noted. Labs and vital signs reviewed: Vital Signs Vital Signs Date Time Temp Pulse Resp B/P (MAP) Pulse Ox O2 Delivery O2 Flow Rate FiO2 01/21/18 07:52 79 19 127/61 (83) 97 Room Air 01/20/18 18:45 98.6 Lab Results Test 01/20/18 19:50 01/20/18 20:00 01/20/18 21:19 Urine Opiates Screen NEG Urine Barbiturates Screen NEG Urine Amphetamines Screen NEG Urine Benzodiazepines Screen NEG Urine Cocaine Screen NEG Urine Cannabinoids Screen NEG White Blood Count 1.8 TH/MM3 Red Blood Count 3.40 MIL/MM3 Hemoglobin 9.4 GM/DL Hematocrit 29.2 % Mean Corpuscular Volume 85.8 FL Mean Corpuscular Hemoglobin 27.6 PG Mean Corpuscular Hemoglobin Concent 32.2 % Red Cell Distribution Width 21.7 % Platelet Count 164 TH/MM3 Mean Platelet Volume 6.9 FL Neutrophils (%) (Auto) 62.8 % Lymphocytes (%) (Auto) 25.5 % Monocytes (%) (Auto) 11.1 % Eosinophils (%) (Auto) 0.0 % Basophils (%) (Auto) 0.6 % Neutrophils # (Auto) 1.1 TH/MM3 Lymphocytes # (Auto) 0.5 TH/MM3 Monocytes # (Auto) 0.2 TH/MM3 Eosinophils # (Auto) 0.0 TH/MM3 Basophils # (Auto) 0.0 TH/MM3 CBC Comment AUTO DIFF Differential Total Cells Counted 100 Neutrophils % (Manual) 58 % Band Neutrophils % 4 % Lymphocytes % 31 % Monocytes % 6 % Neutrophils # (Manual) 1.1 TH/MM3 Metamyelocytes 1 % Nucleated Red Blood Cells 1 /100 WBC Differential Comment FINAL DIFF MANUAL Atypical Lymphocytes % Platelet Estimate NORMAL Platelet Morphology Comment NORMAL Target Cells 1+ Ovalocytes 1+ Blood Urea Nitrogen 10 MG/DL Creatinine 0.56 MG/DL Random Glucose 186 MG/DL Total Protein 6.7 GM/DL Albumin 3.4 GM/DL Calcium Level 8.6 MG/DL Alkaline Phosphatase 78 U/L Aspartate Amino Transf (AST/SGOT) 39 U/L Alanine Aminotransferase (ALT/SGPT) 17 U/L Total Bilirubin 0.2 MG/DL Sodium Level 143 MEQ/L Potassium Level 3.5 MEQ/L Chloride Level 106 MEQ/L Carbon Dioxide Level 21.4 MEQ/L Anion Gap 16 MEQ/L Estimat Glomerular Filtration Rate 108 ML/MIN Thyroid Stimulating Hormone 3rd Gen 0.102 uIU/ML Ethyl Alcohol Level 256 MG/DL Blood Gas Puncture Site CENTRAL LINE Blood Gas Patient Temperature 98.6 Venous Blood pH 7.43 Venous Blood Partial Pressure CO2 35 mmHg Venous Blood Partial Pressure O2 94 mmHg Venous Blood HCO3 23 mmol/L Venous Blood Oxygen Saturation 93 % Venous Blood Oxygen Content 11.1 Vol % Venous Blood Base Excess -1.1 mmol/L Oxygen Delivery Device NASAL CANNULA Blood Gas Liter Flow 1 L/M Labs reviewed. Anemia and leukopenia noted. Mental Status Examination Appearance: Disheveled Consciousness: Alert Orientation: x4 Motor Activity: Normal gait Speech: Unremarkable Language: Adequate Fund of Knowledge: Adequate Attention and Concentration: Adequate Memory: Unremarkable (Grossly intact on clinical exam) Mood: Other (Depressed) Affect: Other (Restricted) Thought Process & Associations: Intact, Logical, Linear Thought Content: Appropriate Hallucination Type: None Delusion Type: None Suicidal Ideation: No (Unclear whether patient is reliable to contract for safety) Suicidal Plan: No Suicidal Intention: No Homicidal Ideation: No Homicidal Plan: No Homicidal Intention: No Insight: Fair Judgment: Impulsive Assessment & Plan Problem List: (1) Major depressive disorder, single episode, moderate ICD Codes: F32.1 - Major depressive disorder, single episode, moderate Assessment & Plan 67-year-old female with psychiatric history as detailed above who presents under Brown act by law enforcement alleging that the patient tried to smother herself with a pillow. On my examination today, the patient denies making any sort of suicide attempt and denies suicidal ideation, although it is unclear that she is presently reliable to contract for safety. She does elaborate multiple depressive symptoms and says that the stressor that led to onset of depressive episode was health problems beginning in September. She does have some evidence of mild thyroid derangement, which may be contributing to her mood state. I will plan to admit the patient to the inpatient psychiatric unit for safety, observation and stabilization. Admit inpatient to med psych unit. Voluntary status. Initiate Remeron 15 mg at bedtime for dysphoria. Atarax as needed for anxiety. R/B/A for medications discussed with patient. CIWA scale with Ativan for the management of any withdrawal. Thiamine and folate. Seizure and fall precautions. PT/OT eval. Consult to the hospitalist for medical management. Vitals every shift. Counselor to see. Disposition planning. Estimated length of stay: 5-7 days. Discharge Planning Pending psychiatric stabilization Request HC Surrog/Guard Advoc?: No Fredrick Tierney MD Jan 21, 2018 08:53
[2018-01-21] MEDS ORDERED: PILL SPLITTER OTHER PRN (10:00)
[2018-01-21] MEDS ORDERED: ACETAMINOPHEN 325 MG TAB PO PRN (10:00)
[2018-01-21] MEDS ORDERED: NICOTINE 21 MG/24 HR PATCH T-DERMAL PRN (10:00)
[2018-01-21] MEDS ORDERED: MAGNESIUM HYDROXIDE SUSP 30 ML CUP PO PRN (10:00)
[2018-01-21] MEDS ORDERED: ALBUTEROL SULFATE 90 MCG/ACT HFA 8 GM INHALER INH PRN (10:00)
[2018-01-21] MEDS ORDERED: ALUMINUM/MAGNESIUM/SIMETH 30 ML CUP PO PRN (10:00)
[2018-01-21] MEDS ORDERED: hydrOXYzine HCL 25 MG TAB PO PRN (10:00)
[2018-01-21] MEDS ORDERED: RESP: ALBUTEROL 2.5 MG/3 ML NEB (PRN) NEB (10:00)
[2018-01-21] MEDS ORDERED: IPRASOL NEB ×2 (10:41)
[2018-01-21] MEDS: MULTIVITAMINS/MINERALS THERAPEUTIC TAB PO SCH (10:50)
[2018-01-21] MEDS: THIAMINE HCL 100 MG TAB PO SCH (10:50)
[2018-01-21] MEDS: LACTOBACILLUS ACIDOPHILUS TAB PO SCH ×2 (11:19→21:00)
[2018-01-21] MEDS: FOLIC ACID 1 MG TAB PO SCH (11:20)
[2018-01-21] MEDS: MEGESTROL ACETATE 40 MG TAB PO SCH (11:20)
[2018-01-21 11:33] VITALS: BP 127/57; PULSE 77; RESP 20; O2SAT 97
--- NOTE | 2018-01-21 11:53 | PD.CONS ---
[facility] Service Family Medicine Consult Requested By Fredrick Tierney MD, psychiatry. Reason for Consult Medical Management. Primary Care Physician Dr. Michael Contreras History of Present Illness Patient is a 67 year old female who presents to the [facility] ED following a suicide attempt. Patient was placed under [place] Act by law enforcement after attempt to smother herself with a pillow. Patient denies attempt in conversation with psychiatry. She endorses depressive symptoms but denies current suicidal ideations. She has been admitted to inpatient psych for safety , observation, and stabilization. Per patient, she felt very depressed yesterday. She has not been sleeping and attributes her depression to her declining health. Patient reports calling paramedics yesterday, stating: "I don't want to live. I can't take anymore being sick." When paramedics arrived, patient describes incident when she lost balance, fell forward with head into stack of pillows. She says that this incident was interpreted as her smothering herself with a pillow. Consequently, she was placed under Brown Act and taken to [facility] ED. Of note, patient has had increased difficulty breathing since September. She requires 3L of oxygen at home. Recently, she was also treated for C.diff. She completed her antibiotic course and denies diarrhea today. (Nancy Alexis MD R1) Review of Systems Constitutional: COMPLAINS OF: Fatigue, Weight loss (20 lbs since September), Dizziness, Change in appetite (Decreased ), DENIES: Fever, Weight gain, Chills Eyes: DENIES: Blurred vision, Vision loss, Double Vision Ears, nose, mouth, throat: DENIES: Nasal discharge, Throat pain, Running Nose Respiratory: COMPLAINS OF: Cough (Baseline ), Sputum production, Shortness of breath Cardiovascular: COMPLAINS OF: Chest pain (Associated with cough ), DENIES: Syncope Gastrointestinal: COMPLAINS OF: Abdominal pain, DENIES: Black stools, Bloody stools, Constipation, Diarrhea, Nausea, Vomiting Musculoskeletal: DENIES: Joint pain, Muscle aches, Stiffness Integumentary: DENIES: Rash Hematologic/lymphatic: COMPLAINS OF: Bruising Neurologic: DENIES: Headache Psychiatric: COMPLAINS OF: Anxiety, Depression, DENIES: Confusion, Hallucinations, Suicidal Ideation, Homicidal Ideation (Nancy Alexis MD R1) Past Family Social History Past Medical History Anemia Alcohol Use Disorder COPD C. difficile Depression Dysphagia Malnutrition SLE Past Surgical History Left hip fracture repair Tubal ligation Varicose Vein Reported Medications Albuterol Neb (Albuterol Sulfate) 2.5 Mg/3 Ml Neb 2.5 Mg NEB Q4HR NEB PRN Megestrol (Megestrol Acetate) 20 Mg Tab 20 Mg PO DAILY Acidophilus/l-Sporogenes (Lactobacillus Acidophilus) 35 Million Cell-25 Million Cell Tab 1 Tab PO Q12HR Ventolin Hfa 18 GM Inh (Albuterol Sulfate) 90 Mcg/Act Aer 2 Puff INH Q4-6H PRN 30 Days Duoneb (Ipratropium-Albuterol Neb) 0.5-2.5 Mg/3 Ml Neb 3 Ml NEB Q6HR WHILE AWAKE NEB (Nancy Alexis MD R1) Allergies: Coded Allergies: No Known Allergies (Verified Allergy, Unknown, 01/20/18) Active Ordered Medications Current Medications Medications (Trade) Dose Ordered Sig/Nikhil Route Start Time Stop Time Status Last Admin (Tylenol) 650 mg Q4H PRN PO 01/21/18 10:00 (Milk Of Magnesia Liq) 30 ml DAILY PRN PO 01/21/18 10:00 (Mag-Al Plus Susp Liq) 30 ml Q6H PRN PO 01/21/18 10:00 (Habitrol 21 Mg Patch.24 Hr) 1 patch DAILY PRN T-DERMAL 01/21/18 10:00 01/21/18 11:22 (Atarax) 25 mg Q6H PRN PO 01/21/18 10:00 (Folate) 1 mg DAILY PO 01/21/18 10:00 01/26/18 09:59 01/21/18 11:20 (Vitamin B1) 100 mg DAILY PO 01/21/18 09:00 01/21/18 10:50 (Theragran M Tab) 1 tab DAILY PO 01/21/18 09:00 01/26/18 08:59 01/21/18 10:50 (Romazicon Inj) 0.2 mg Q1M PRN IV PUSH 01/21/18 08:45 (Ativan) 1 mg Q4H PRN PO 01/21/18 08:45 (Ativan Inj) 1 mg Q4H PRN IM 01/21/18 08:45 (Ativan) 2 mg Q2H PRN PO 01/21/18 08:45 (Ativan Inj) 2 mg Q2H PRN IM 01/21/18 08:45 (Ativan Inj) 2 mg Q1H PRN IM 01/21/18 08:45 (Ativan Inj) 2 mg Q15M PRN IM 01/21/18 08:45 (Remeron) 15 mg HS PO 01/21/18 21:00 (Proair Hfa Inh) 2 puff Q4H PRN INH 01/21/18 10:00 (Albuterol Neb) 2.5 mg Q4HR NEB PRN NEB 01/21/18 10:00 (Lactinex) 1 tab Q12HR PO 01/21/18 10:00 01/21/18 11:19 (Megace) 20 mg DAILY PO 01/21/18 10:00 01/21/18 11:20 (Pill Splitter) 1 ea UNSCH PRN OTHER 01/21/18 10:00 Miscellaneous Information 1 HS T-DERMAL 01/21/18 21:00 (Duoneb Neb) 1 ampule Q6HR NEB INH 01/21/18 16:00 Family History Mother - breast cancer Father - heart disease Social History Lives with . Alcohol: [place] whiskey. Tobacco: 4-5 cigarettes/day. Substance Use: denies. (Nancy Alexis MD R1) Physical Exam Vital Signs Vital Signs Date Time Temp Pulse Resp B/P (MAP) Pulse Ox O2 Delivery O2 Flow Rate FiO2 01/21/18 11:33 77 20 127/57 (80) 97 Room Air 01/21/18 07:52 79 19 127/61 (83) 97 Room Air 01/21/18 04:20 80 20 125/60 (81) 98 Room Air 01/21/18 00:12 85 18 121/62 (81) 98 Room Air 01/20/18 18:45 98.6 100 18 97 Physical Exam GENERAL: This is a well-nourished, well-developed patient, in no apparent distress. SKIN: No rashes, ecchymoses or lesions. Cool and dry. HEAD: Atraumatic. Normocephalic. No temporal or scalp tenderness. EYES: Pupils equal round and reactive. Extraocular motions intact. No scleral icterus. No injection or drainage. ENT: Nose without bleeding, purulent drainage or septal hematoma. Throat without erythema, tonsillar hypertrophy or exudate. Uvula midline. Airway patent. NECK: Trachea midline. No JVD or lymphadenopathy. Supple, nontender, no meningeal signs. CARDIOVASCULAR: Regular rate and rhythm without murmurs, gallops, or rubs. RESPIRATORY: Clear to auscultation. Breath sounds equal bilaterally. No wheezes , rales, or rhonchi. GASTROINTESTINAL: Abdomen soft, non-tender, nondistended. No hepato-splenomegaly , or palpable masses. No guarding. MUSCULOSKELETAL: Extremities without clubbing, cyanosis, or edema. No joint tenderness, effusion, or edema noted. No calf tenderness. NEUROLOGICAL: Awake and alert. Cranial nerves II through XII intact. Motor and sensory grossly within normal limits. Normal speech. Laboratory Laboratory Tests Test 01/20/18 19:50 01/20/18 20:00 01/20/18 21:19 Urine Opiates Screen NEG Urine Barbiturates Screen NEG Urine Amphetamines Screen NEG Urine Benzodiazepines Screen NEG Urine Cocaine Screen NEG Urine Cannabinoids Screen NEG White Blood Count 1.8 Red Blood Count 3.40 Hemoglobin 9.4 Hematocrit 29.2 Mean Corpuscular Volume 85.8 Mean Corpuscular Hemoglobin 27.6 Mean Corpuscular Hemoglobin Concent 32.2 Red Cell Distribution Width 21.7 Platelet Count 164 Mean Platelet Volume 6.9 Neutrophils (%) (Auto) 62.8 Lymphocytes (%) (Auto) 25.5 Monocytes (%) (Auto) 11.1 Eosinophils (%) (Auto) 0.0 Basophils (%) (Auto) 0.6 Neutrophils # (Auto) 1.1 Lymphocytes # (Auto) 0.5 Monocytes # (Auto) 0.2 Eosinophils # (Auto) 0.0 Basophils # (Auto) 0.0 CBC Comment AUTO DIFF Differential Total Cells Counted 100 Neutrophils % (Manual) 58 Band Neutrophils % 4 Lymphocytes % 31 Monocytes % 6 Neutrophils # (Manual) 1.1 Metamyelocytes 1 Nucleated Red Blood Cells 1 Differential Comment FINAL DIFF MANUAL Atypical Lymphocytes Platelet Estimate NORMAL Platelet Morphology Comment NORMAL Target Cells 1+ Ovalocytes 1+ Blood Urea Nitrogen 10 Creatinine 0.56 Random Glucose 186 Total Protein 6.7 Albumin 3.4 Calcium Level 8.6 Alkaline Phosphatase 78 Aspartate Amino Transf (AST/SGOT) 39 Alanine Aminotransferase (ALT/SGPT) 17 Total Bilirubin 0.2 Sodium Level 143 Potassium Level 3.5 Chloride Level 106 Carbon Dioxide Level 21.4 Anion Gap 16 Estimat Glomerular Filtration Rate 108 Thyroid Stimulating Hormone 3rd Gen 0.102 Ethyl Alcohol Level 256 Blood Gas Puncture Site CENTRAL LINE Blood Gas Patient Temperature 98.6 Venous Blood pH 7.43 Venous Blood Partial Pressure CO2 35 Venous Blood Partial Pressure O2 94 Venous Blood HCO3 23 Venous Blood Oxygen Saturation 93 Venous Blood Oxygen Content 11.1 Venous Blood Base Excess -1.1 Oxygen Delivery Device NASAL CANNULA Blood Gas Liter Flow 1 (Nancy Alexis MD R1) Result Diagram: 01/20/18199901/20/181999 Assessment and Plan Assessment and Plan Patient is a 67 year old female who presents to the [facility] ED following a suicide attempt. Patient has a history of anemia, alcohol use disorder, COPD, recent C. difficile, depression, dysphagia and malnutrition. Resident team consulted for medical management. Code Status Full Code. Discussed Condition With Dr. Contreras. (Nancy Alexis MD R1) Problem List: (1) Suicidal ideation ICD Codes: R45.851 - Suicidal ideations Status: Acute Plan: Patient placed under [place] Act by law enforcement following an incident of patient smothering herself with pillow. Patient has explanation of incident and denies suicidal ideations. Patient endorses depression. Patient admitted by psych to inpatient unit. Plan per Psych: Admit inpatient to med psych unit. Voluntary status. Initiate Remeron 15 mg at bedtime for dysphoria. Atarax as needed for anxiety. R/B/A for medications discussed with patient. CIWA scale with Ativan for the management of any withdrawal. Thiamine and folate. Seizure and fall precautions. PT/OT eval. Consult to the hospitalist for medical management. Vitals every shift. Counselor to see. Disposition planning. Estimated length of stay: 5-7 days. (2) Depression ICD Codes: F32.9 - Major depressive disorder, single episode, unspecified Status: Acute Plan: Patient with history of depression. Depression secondary to health concerns. * See Plan for Suicidal ideations. (3) Anemia ICD Codes: D64.9 - Anemia, unspecified Status: Chronic Plan: Patient with history of anemia. Patient asymptomatic. Likely secondary to malnutrition and alcoholism. Will monitor while hospitalized. Admission Labs: * Hgb 9.4. Labs 01/21: * Hgb 10.7. (4) Alcohol intoxication ICD Codes: F10.929 - Alcohol use, unspecified with intoxication, unspecified Status: Acute Plan: Upon arrival in ED, patient with ethanol level of 256. Patient with history of alcohol use disorder. Orders: * JILLIANWA. Medications: * Folic acid 1mg PO daily. * Thiamine 100mg PO daily. * Multivitamin 1 tab PO daily. (5) COPD (chronic obstructive pulmonary disease) ICD Codes: J44.9 - Chronic obstructive pulmonary disease, unspecified Status: Chronic Plan: Patient with history of COPD. She requires 3L oxygen at home. Continues to smoke (see social history). Medications: * Duoneb 1 ampule q6hr NEB INH. * Albuterol Sulfate 2 puff q4hr INH PRN Shortness of Breath. * Albuterol Sulfate 2.5mg q4hr INH PRN Shortness of Breath. * Nicotine Patch 21mg daily. (6) FEN Status: Acute Plan: Fluid: * Encourage PO intake. Electrolyte: * Monitor and replete as necessary. Nutrition: * Regular diet. Prophylaxis: * SCDs. (Nancy Alexis MD R1) Problem List: (1) Suicidal ideation ICD Codes: R45.851 - Suicidal ideations Status: Acute Plan: Patient placed under [place] Act by law enforcement following an incident of patient smothering herself with pillow. Patient has explanation of incident and denies suicidal ideations. Patient endorses depression. Patient admitted by psych to inpatient unit. Plan per Psych: Admit inpatient to med psych unit. Voluntary status. Initiate Remeron 15 mg at bedtime for dysphoria. Atarax as needed for anxiety. R/B/A for medications discussed with patient. CIWA scale with Ativan for the management of any withdrawal. Thiamine and folate. Seizure and fall precautions. PT/OT eval. Consult to the hospitalist for medical management. Vitals every shift. Counselor to see. Disposition planning. Estimated length of stay: 5-7 days. (2) Depression ICD Codes: F32.9 - Major depressive disorder, single episode, unspecified Status: Acute Plan: Patient with history of depression. Depression secondary to health concerns. * See Plan for Suicidal ideations. (3) Anemia ICD Codes: D64.9 - Anemia, unspecified Status: Chronic Plan: Patient with history of anemia. Patient asymptomatic. Likely secondary to malnutrition and alcoholism. Will monitor while hospitalized. Admission Labs: * Hgb 9.4. Labs 01/21: * Hgb 10.7. (4) Alcohol intoxication ICD Codes: F10.929 - Alcohol use, unspecified with intoxication, unspecified Status: Acute Plan: Upon arrival in ED, patient with ethanol level of 256. Patient with history of alcohol use disorder. Orders: * CIWA. Medications: * Folic acid 1mg PO daily. * Thiamine 100mg PO daily. * Multivitamin 1 tab PO daily. (5) COPD (chronic obstructive pulmonary disease) ICD Codes: J44.9 - Chronic obstructive pulmonary disease, unspecified Status: Chronic Plan: Patient with history of COPD. She requires 3L oxygen at home. Continues to smoke (see social history). Medications: * Duoneb 1 ampule q6hr NEB INH. * Albuterol Sulfate 2 puff q4hr INH PRN Shortness of Breath. * Albuterol Sulfate 2.5mg q4hr INH PRN Shortness of Breath. * Nicotine Patch 21mg daily. (6) FEN Status: Acute Plan: Fluid: * Encourage PO intake. Electrolyte: * Monitor and replete as necessary. Nutrition: * Regular diet. Prophylaxis: * SCDs. See the residents documentation for details. I saw and evaluated the patient regarding the paz portions of this evaluation and agree with the residents findings and plans as written. Parts of this note were created using [employer] voice recognition software program. While efforts were made to correct any mistakes made by this software, some mistakes, errors, and omissions may remain in the final note that were not caught when the note was originally created. Plan of care was discussed and agreed upon with the patient as specifically documented in the above note. An opportunity to ask questions with explanation was provided. Patient voiced understanding on all information reviewed and discussed. (Michael Contreras MD) Problem Qualifiers (1) Anemia: Qualified Codes: D64.9 - Anemia, unspecified Nancy Alexis MD R1 Jan 21, 2018 11:53 Michael Contreras MD Jan 22, 2018 11:57
[2018-01-21 14:21] LABS: HEMATOCRIT 33.7 % (35.0-46.0); HEMOGLOBIN 10.7 GM/DL (11.6-15.3); MEAN CELL VOLUME 85.5 FL (80.0-100.0); MEAN CORPUSCULAR HEMOGLOBIN 27.2 PG (27.0-34.0); MEAN CORPUSCULAR HGB CONC 31.8 % (32.0-36.0); MEAN PLATELET VOLUME 7.1 FL (7.0-11.0); PLATELET COUNT 177 TH/MM3 (150-450); RED BLOOD COUNT 3.94 MIL/MM3 (4.00-5.30); RED CELL DISTRIBUTION WIDTH 21.8 % (11.6-17.2); WHITE BLOOD COUNT 5.5 TH/MM3 (4.0-11.0)
[2018-01-21 14:43] LABS: BICARBONATE 28.6 MEQ/L (21.0-32.0); CALCIUM 9.3 MG/DL (8.5-10.1); CREATININE 0.4 MG/DL (0.50-1.00)
[2018-01-21 18:00] VITALS: BP 125/58; PULSE 113; RESP 17; TEMP 97.9; O2SAT 98
[2018-01-21] MEDS ORDERED: MIRTAZAPINE 15 MG TAB PO SCH (21:00)
[2018-01-21] MEDS ORDERED: REMOVE OLD NICODERM (NICOTINE) PATCH T-DERMAL SCH (21:00)
[2018-01-22] MEDS: RESP: ALBUTEROL 2.5 MG/IPRATROPIUM 0.5 MG NEB (SCH) INH ×2 (03:33→10:23)
[2018-01-22 06:15] VITALS: BP 110/55; PULSE 97; RESP 16; TEMP 98.5; O2SAT 96
[2018-01-22 07:31] LABS: AUTOMATED NEUTROPHIL # 1.1 TH/MM3 (1.8-7.7); BASOPHIL % 1.7 % (0.0-2.0); EOSINOPHIL # 0.1 TH/MM3 (0-0.4); EOSINOPHIL % 4.1 % (0.0-4.0); HEMATOCRIT 28.4 % (35.0-46.0); HEMOGLOBIN 8.9 GM/DL (11.6-15.3); LYMPH % 27.9 % (9.0-44.0); LYMPHOCYTE # 0.5 TH/MM3 (1.0-4.8); MEAN CELL VOLUME 85.7 FL (80.0-100.0); MEAN CORPUSCULAR HEMOGLOBIN 26.8 PG (27.0-34.0); MEAN CORPUSCULAR HGB CONC 31.3 % (32.0-36.0); MEAN PLATELET VOLUME 7.3 FL (7.0-11.0); MONO % 11.2 % (0.0-8.0); MONOCYTE # 0.2 TH/MM3 (0-0.9); NEUT % 55.1 % (16.0-70.0); PLATELET COUNT 144 TH/MM3 (150-450); RED BLOOD COUNT 3.32 MIL/MM3 (4.00-5.30); RED CELL DISTRIBUTION WIDTH 21.8 % (11.6-17.2); WHITE BLOOD COUNT 1.9 TH/MM3 (4.0-11.0)
[2018-01-22 07:55] LABS: ALT (GPT) 14 U/L (10-53); AST (GOT) 24 U/L (15-37); BICARBONATE 27.1 MEQ/L (21.0-32.0); BLOOD UREA NITROGEN 9 MG/DL (7-18); CALCIUM 8.7 MG/DL (8.5-10.1); CHLORIDE 103 MEQ/L (98-107); CHOLESTEROL 154 MG/DL (120-200); CREATININE 0.33 MG/DL (0.50-1.00); GLOMERULAR FILTRATION RATE 199 ML/MIN (>89); GLUCOSE,RANDOM 88 MG/DL (74-106); SODIUM (NA) 139 MEQ/L (136-145)
[2018-01-22 07:58] LABS: ALKALINE PHOSPHATASE 63 U/L (45-117); CHOLESTEROL/ HDL RATIO 2.07 RATIO; FREE T4 0.91 NG/DL (0.76-1.46); HDL CHOLESTEROL 74.1 MG/DL (40.0-60.0); LDL CHOLESTEROL 57 MG/DL (0-99); TOTAL BILIRUBIN ADULT 0.5 MG/DL (0.2-1.0); TOTAL PROTEIN 5.9 GM/DL (6.4-8.2); TRIGLYCERIDES 116 MG/DL (42-150)
[2018-01-22 08:33] LABS: LYMPHOCYTES 30 % (9-44); MONOCYTES 6 % (0-8); NEUTROPHIL # MANUAL DIFF 1.1 TH/MM3 (1.8-7.7); OVALOCYTES 1+ (NORMAL); POLYS (SEG NEUTROPHILS) 59 % (16-70)
[2018-01-22] MEDS: LACTOBACILLUS ACIDOPHILUS TAB PO SCH (09:43)
[2018-01-22] MEDS: FOLIC ACID 1 MG TAB PO SCH (09:43)
[2018-01-22] MEDS: THIAMINE HCL 100 MG TAB PO SCH (09:43)
[2018-01-22] MEDS: MEGESTROL ACETATE 40 MG TAB PO SCH (09:43)
[2018-01-22] MEDS: MULTIVITAMINS/MINERALS THERAPEUTIC TAB PO SCH (09:43)
[2018-01-22 10:24] VITALS: O2SAT 99
--- NOTE | 2018-01-22 10:49 | HHI.FPPN ---
Subjective Remarks Patient seen and examined this morning. No acute events overnight per nursing staff. Patient states that she is being released home today. She currently has no complaints and denies any fevers, chills, shortness of breath, chest pain , NVD, abdominal pain, or calf tenderness. Patient states that she does not feel depressed or suicidal at this time. She was encouraged to decrease her smoking and alcohol use. Objective Vitals Vital Signs Date Time Temp Pulse Resp B/P (MAP) Pulse Ox O2 Delivery O2 Flow Rate FiO2 01/22/18 10:24 99 Nasal Cannula 2.00 01/22/18 06:15 98.5 97 16 110/55 (73) 96 01/21/18 18:00 97.9 113 17 125/58 (80) 98 01/21/18 12:10 01/21/18 11:33 77 20 127/57 (80) 97 Room Air I/O 01/21/18 01/21/18 01/21/18 01/22/18 01/22/18 01/22/18 07:00 15:00 23:00 07:00 15:00 23:00 Intake Total 240 ml Balance 240 ml Intake Oral 240 ml Result Diagram: 01/22/1848 01/22/18 0648 Objective Remarks GENERAL: Elderly female lying in bed in no acute distress. SKIN: Cool and dry. No rash. HEENT: Atraumatic, normocephalic with extraocular motions intact. No rhinorrhea. No visible lymphadenopathy or jugulovenous distension appreciated. CARDIOVASCULAR: Regular rate and rhythm without obvious murmurs, gallops, or rubs. 2+ pulses in all four extremities. RESPIRATORY: Clear to auscultation bilaterally with no crackles, wheezes, or rhonchi. No increased work of breathing while on 2 L nasal cannula. GASTROINTESTINAL: Abdomen soft, non-tender, nondistended with positive bowel sounds. No masses appreciated. MUSCULOSKELETAL: No cyanosis or edema. No calf tenderness. NEURO/PSYCH: Afocal. Awake, alert, and oriented x3. Normal speech and judgement. Patient denies any suicidal/homicidal ideations. Patient denies any depressive symptoms at this time. A/P Assessment and Plan Patient is a 67 year old female who presents to the [place] ED following a suicide attempt. Patient has a history of anemia, alcohol use disorder, COPD, recent C. difficile, depression, dysphagia and malnutrition. Resident team consulted for medical management. Discharge Planning Today pending psychiatric recommendations. Family medicine service will sign off at this time. We appreciate the consult and can be called with any questions. Problem List: (1) Suicidal ideation ICD Codes: R45.851 - Suicidal ideations Status: Acute Plan: Patient placed under [place] Act by law enforcement following an incident of patient smothering herself with pillow. Patient has explanation of incident and denies suicidal ideations. Patient endorses depression. Patient admitted by psych to inpatient unit. Patient reports she is "to be discharged home today, 01/22/18" Plan per Psych: Admit inpatient to med psych unit. Voluntary status. Initiate Remeron 15 mg at bedtime for dysphoria. Atarax as needed for anxiety. R/B/A for medications discussed with patient. CIWA scale with Ativan for the management of any withdrawal. Thiamine and folate. Seizure and fall precautions. PT/OT eval. Consult to the hospitalist for medical management. Vitals every shift. Counselor to see. Disposition planning. Estimated length of stay: 5-7 days. (2) Depression ICD Codes: F32.9 - Major depressive disorder, single episode, unspecified Status: Acute Plan: Patient with history of depression. Depression secondary to health concerns. Currently denies any depression symptoms at this time. Patient denies any suicidal/homicidal ideations. * See Plan for Suicidal ideations. (3) Anemia ICD Codes: D64.9 - Anemia, unspecified Status: Chronic Plan: Patient with history of anemia. Patient asymptomatic. Likely secondary to malnutrition and alcoholism. Will monitor while hospitalized. Admission Labs: * Hgb 9.4. Labs: * Hgb 10.7. 01/21 * Hemoglobin 8.9 01/22 Medications: * Patient to be discharged home on iron supplementation. (4) Alcohol intoxication ICD Codes: F10.929 - Alcohol use, unspecified with intoxication, unspecified Status: Acute Plan: Upon arrival in ED, patient with ethanol level of 256. Patient with history of alcohol use disorder. Orders: * CIWA. Medications: * Folic acid 1mg PO daily. * Thiamine 100mg PO daily. * Multivitamin 1 tab PO daily. (5) COPD (chronic obstructive pulmonary disease) ICD Codes: J44.9 - Chronic obstructive pulmonary disease, unspecified Status: Chronic Plan: Patient with history of COPD. She requires 3L oxygen at home. Continues to smoke (see social history). Medications: * Duoneb 1 ampule q6hr NEB INH. * Albuterol Sulfate 2 puff q4hr INH PRN Shortness of Breath. * Albuterol Sulfate 2.5mg q4hr INH PRN Shortness of Breath. * Nicotine Patch 21mg daily. (6) FEN Status: Acute Plan: Fluid: * Encourage PO intake. Electrolyte: * Monitor and replete as necessary. Nutrition: * Regular diet. Prophylaxis: * SCDs. Isaiah Dumont MD R2 Jan 22, 2018 10:49
[2018-01-22] MEDS ORDERED: FERR325T18 PO (10:50)
--- NOTE | 2018-01-22 11:29 | HHI.DS ---
Psychiatry Discharge Summary Inpatient Psychiatric care?: Yes Advance Directive: No Reason Not Provided: Due to Patient Condition Mental Health AdvanceDirective: No Health Care Proxy: No Admission Admission Date Jan 21, 2018 at 08:40 Admission Diagnosis: (1) Major depressive disorder, single episode, moderate ICD Code: F32.1 - Major depressive disorder, single episode, moderate Brief History Ms. Bowens is a 67-year-old female with no reported past psychiatric history who presents under a Brown act by [place] [employer] alleging that the patient said that she "no longer could take it and want to commit suicide." Brown act alleges that the patient attempted to smother herself with a pillow while in front of the officer. Of note, patient's alcohol level was elevated at 256 on presentation here. Reviewing the electronic medical record, I see no previous psychiatric contact within our system. Patient seen and examined. Chart reviewed. Case discussed with staff in the ED. On my examination this morning, the patient is clinically sober with no evidence of withdrawal. She says that she had been doing fine "up until I got sick in September. Everything has just caught up to me. I feel like I am going to explode." In addition to low mood, the patient endorses hopeless and worthless feelings. She endorses poor sleep and poor appetite. She does deny trying to smother herself with a pillow and denies suicidal ideation presently, although it is unclear whether she is reliable to contract for safety. No homicidal ideation. No hypomanic or manic symptoms. Denies audiovisual hallucinations. I can elicit no delusional material. The remainder of the psychiatric ROS is negative. No acute physical complaints. Past psychiatric history: Patient denies a history of psychiatric diagnosis. She denies a history of inpatient or outpatient psychiatric treatment. She denies any history of suicide attempts. Family history: The patient denies any family history of mental illness or suicide. Chemical dependency history: Patient reports that she is only a sporadic drinker. She says that yesterday she drank between 8 and 12 ounces of whiskey from a red Solo cup. She denies any other substance use. No reported history of DTs or seizures. Social history: Patient is from [place]. She is . She has children who are grown and live in [place]. She is high school educated. 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 She served in the [employer]. She denies any legal history. Denies any access to guns or firearms. She is a Mormonism. Denies any history of abuse or mistreatment. Tobacco Use In Past 30 Days: 5 or More Cigarettes/Day Alcohol Use: 2-3 Times Per Week Hospital Course Patient was admitted to a locked, inpatient psychiatric unit. A general medical consultation was obtained. Appropriate precautions were in place throughout patient's hospital stay. Patient was seen and examined on the unit by psychiatry and also visited by counselor. Although I had placed an order for Remeron 15mg qHS last night, this was not administered because the consent I obtained had been misfiled. There was no evidence of any suicidality or homicidality on the inpatient unit. There was no evidence of self-care deficit secondary to mental illness. Counselor has obtained collateral information from patient's who reportedly has no safety concerns and is comfortable with having the patient return home today. On the day of discharge: Patient seen and examined with nurse. Chart reviewed. Case discussed with nursing staff. On my examination today, the patient continues to insist that she did not make a suicide attempt prior to admission. She says that her distress yesterday was "stupid, like a volcano going off." She denies any suicidal or homicidal ideation, intent or plan and contracts for safety. Indeed, when I ask if she has been experiencing any suicidal ideation, she rolls her eyes. I can elicit no depressive or hypomanic/manic symptoms. She is future oriented. No audiovisual hallucinations. I can elicit no delusional material. There is no evidence of impairment in reality construction. Patient is not interested in taking any psychotropic medications at this time and so I will not provide a prescription for the Remeron. Patient has no physical complaints. She is requesting discharge from the inpatient psychiatric unit today. Weighing the relevant factors and based on the available evidence, I electric motor repairer to a reasonable degree of medical certainty that the patient does not represent an imminent risk of harm to self or others, nor is there any evidence of self-care deficit secondary to mental illness. Consequently, the patient does not meet criteria for involuntary psychiatric hospitalization at this time, and I have no basis to retain her over her objection. Patient will be discharged home with home PT today with psychiatric follow-up as arranged by counselor. Patient is also to follow up with primary care. I have counseled the patient to abstain from any substances of abuse including alcohol and have recommended chemical dependency evaluation and treatment on an outpatient basis. I have counseled the patient regarding warning signs for need to return to the psychiatric emergency room as part of a general safety plan. With the benefit of further observation, it appears that presenting dysphoria was related to an adjustment reaction, now resolved, and not to a major depressive episode as had been initially suspected. Results Blood Pressure 110 / 55 Vital Signs Date Time Temp Pulse Resp B/P (MAP) Pulse Ox O2 Delivery O2 Flow Rate FiO2 01/22/18 10:24 99 Nasal Cannula 2.00 01/22/18 06:15 98.5 97 16 110/55 (73) Laboratory Tests Test 01/20/18 19:50 01/20/18 20:00 01/20/18 21:19 01/21/18 13:57 White Blood Count 1.8 TH/MM3 (4.0-11.0) Red Blood Count 3.40 MIL/MM3 (4.00-5.30) 3.94 MIL/MM3 (4.00-5.30) Hemoglobin 9.4 GM/DL (11.6-15.3) 10.7 GM/DL (11.6-15.3) Hematocrit 29.2 % (35.0-46.0) 33.7 % (35.0-46.0) Red Cell Distribution Width 21.7 % (11.6-17.2) 21.8 % (11.6-17.2) Mean Platelet Volume 6.9 FL (7.0-11.0) Monocytes (%) (Auto) 11.1 % (0.0-8.0) Neutrophils # (Auto) 1.1 TH/MM3 (1.8-7.7) Lymphocytes # (Auto) 0.5 TH/MM3 (1.0-4.8) Neutrophils # (Manual) 1.1 TH/MM3 (1.8-7.7) Nucleated Red Blood Cells 1 /100 WBC (0-0) Target Cells 1+ (NORMAL) Ovalocytes 1+ (NORMAL) Random Glucose 186 MG/DL (74-106) Aspartate Amino Transf (AST/SGOT) 39 U/L (15-37) Anion Gap 16 MEQ/L (5-15) Thyroid Stimulating Hormone 3rd Gen 0.102 uIU/ML (0.358-3.740) Ethyl Alcohol Level 256 MG/DL (0-5) Venous Blood pH 7.43 (7.360-7.400) Venous Blood Partial Pressure CO2 35 mmHg (44-48) Venous Blood Partial Pressure O2 94 mmHg (35-40) Venous Blood Oxygen Saturation 93 % (70-76) Mean Corpuscular Hemoglobin Concent 31.8 % (32.0-36.0) Creatinine 0.40 MG/DL (0.50-1.00) Test 01/22/18 06:48 White Blood Count 1.9 TH/MM3 (4.0-11.0) Red Blood Count 3.32 MIL/MM3 (4.00-5.30) Hemoglobin 8.9 GM/DL (11.6-15.3) Hematocrit 28.4 % (35.0-46.0) Mean Corpuscular Hemoglobin 26.8 PG (27.0-34.0) Mean Corpuscular Hemoglobin Concent 31.3 % (32.0-36.0) Red Cell Distribution Width 21.8 % (11.6-17.2) Platelet Count 144 TH/MM3 (150-450) Monocytes (%) (Auto) 11.2 % (0.0-8.0) Eosinophils (%) (Auto) 4.1 % (0.0-4.0) Neutrophils # (Auto) 1.1 TH/MM3 (1.8-7.7) Lymphocytes # (Auto) 0.5 TH/MM3 (1.0-4.8) Eosinophils % 5 % (0-4) Neutrophils # (Manual) 1.1 TH/MM3 (1.8-7.7) Platelet Estimate LOW (NORMAL) Ovalocytes 1+ (NORMAL) Creatinine 0.33 MG/DL (0.50-1.00) Total Protein 5.9 GM/DL (6.4-8.2) Albumin 3.0 GM/DL (3.4-5.0) HDL Cholesterol 74.1 MG/DL (40.0-60.0) Laboratory Results Test 01/22/18 06:48 Cholesterol Level 154 MG/DL (120-200) HDL Cholesterol 74.1 MG/DL (40.0-60.0) LDL Cholesterol 57 MG/DL (0-99) Triglycerides Level 116 MG/DL (42-150) Summary of Procedures None done Imaging None done Pending results at discharge: Yes (Hemoglobin A1c) Medications # of Antipsychotic meds at D/C: 0 Approp Antipsych med options 1 - Minimum of three failed multiple trials of monotherapy. 2 - Documented plan to taper to monotherapy due to previous use of multiple meds OR cross-taper in progress at D/C. 3 - Documentation of augmentation of Clozapine. 4 - Justification other than those listed in allowable values 1-3, document here : Discharge Discharge Date: Jan 22, 2018 Discharge Diagnosis: (1) Adjustment disorder with depressed mood Diagnosis: Principal (Resolved) ICD Code: F43.21 - Adjustment disorder with depressed mood Pt Condition on Discharge: Stable Discharge Disposition: Disch w/ Home Health Serv Discharge Instructions Diet Instructions: As Tolerated, No Restrictions Activities you can perform: Weight Bearing as [place] Scheduled Appointment: As per counselors notes New Orders: CBC WITH DIFF - 1 Week New Medications: Ferrous Sulfate (Ferrous Sulfate) 325 Mg (65 Mg Iron) Tablet 325 MG PO BIDPC for Nutritional Supplement, #60 TAB 0 Refills Continued Medications: Albuterol 18 GM Inh (Ventolin Hfa 18 GM Inh) 90 Mcg/Act Aer 2 PUFF INH Q4-6H PRN for SHORTNESS OF BREATH for 30 Days, #1 INHALER 0 Refills Albuterol Neb (Albuterol Neb) 2.5 Mg/3 Ml Neb 2.5 MG NEB Q4HR NEB PRN for SHORTNESS OF BREATH, #60 NEBULE 0 Refills Ipratropium-Albuterol Neb (Duoneb) 0.5-2.5 Mg/3 Ml Neb 3 ML NEB Q6HR WHILE AWAKE NEB for Breathing Treatment, #30 NEBULE 0 Refills Lactobacillus Acidophilus (Acidophilus/l-Sporogenes) 35 Million Cell-25 Million Cell Tab 1 TAB PO Q12HR, #60 TAB Megestrol (Megestrol) 20 Mg Tab 20 MG PO DAILY, #30 TAB 0 Refills Discharge Time <= 30 minutes Mental Status Examination Appearance: Appropriate Consciousness: Alert Orientation: x4 (No evidence of delirium) Motor Activity: Other (No motor abnormalities noted. No signs of intoxication or withdrawal noted.) Speech: Unremarkable Language: Adequate Fund of Knowledge: Adequate Attention and Concentration: Adequate Memory: Unremarkable (Grossly intact on clinical exam) Mood: Appropriate Affect: Appropriate Thought Process & Associations: Intact, Logical, Goal directed, Linear Thought Content: Appropriate Hallucination Type: None Delusion Type: None Suicidal Ideation: No Suicidal Plan: No Suicidal Intention: No Homicidal Ideation: No Homicidal Plan: No Homicidal Intention: No Mental Status Exam Remarks Insight and judgment are perhaps fair Discharge/Advance Care Plan Health Problems: (1) Major depressive disorder, single episode, moderate Goals to promote your health * To prevent worsening of your condition and complications * To maintain your health at the optimal level Directions to meet your goals Take your medications as prescribed Follow your dietary instruction Follow activity as directed Keep your appointments as scheduled Take your immunizations and boosters as scheduled If your symptoms worsen call your PCP, if no PCP go to Urgent Care Center or Emergency Room For 03/03 questions related to your inpatient stay or results of tests pending at discharge, please contact Dr. Fredrick Tierney at Smoking is Dangerous to Your Health. Avoid second hand smoking Fredrick Tierney MD Jan 22, 2018 11:29
--- NOTE | 2018-01-22 12:18 | HHI.FF ---
Face to Face Verification Diagnosis: (1) Physical deconditioning Physical Therapy Order: Evaluate and Treat, Improve ambulation, Strength and gait training I have seen patient Genevieve Bowens on 01/22/18. My clinical findings support the need for the requested home health care services because: Deconditioned w/ increased weakness Need for psychosocial assistance I certify that my clinical findings support that this patient is homebound because: Need for psychosocial assistance Fredrick Tierney MD Jan 22, 2018 12:18
[2018-01-22 17:17] LABS: HEMOGLOBIN A1C 5.2 % (4.3-6.0)
== END 2018-01-22 16:00 | disposition home or self-care (01) | DRG 885 ==
LOC: NEPD 18:25 → NEDA 01-21 08:40 → H4EA 01-21 12:25
PROVIDERS: ADMIT Psychiatry & Neurology Psychiatry; ATTEND Psychiatry & Neurology Psychiatry
DX: F32.1 Major depressive disorder, single episode, moderate (principal); E46 Unspecified protein-calorie malnutrition; M32.9 Systemic lupus erythematosus, unspecified; Y90.8 Blood alcohol level of 240 mg/100 ml or more; D64.9 Anemia, unspecified; J44.9 Chronic obstructive pulmonary disease, unspecified; F10.129 Alcohol abuse with intoxication, unspecified; Z79.2 Long term (current) use of antibiotics; Z79.51 Long term (current) use of inhaled steroids; Z79.52 Long term (current) use of systemic steroids; Z79.899 Other long term (current) drug therapy; X83.8XXA Intentional self-harm by other specified means, initial encounter
CPT/HCPCS: 80048; 80053; 80061; 80307; 82805; 83036; 84439; 84443; 85007; 85027; 94664

== ENCOUNTER 2018-02-12 19:25 | Inpatient (IN) ==
[2018-02-13] MEDS ORDERED: MethylPREDNISolone Sod Succinate Inj 125 MG/2 ML Vial IV.PUSH ONE (02:32)
[2018-02-13 03:03] LABS: Baso % (Auto) 0.5 % (0.0-2.0); Eos % (Auto) 0.1 % (0.0-4.0); Hematocrit 27.3 % (35.0-46.0); Hemoglobin 8.6 gm/dL (11.6-15.3); Lymph # (Auto) 0.9 th/mm3 (1.0-4.8); Lymph % (Auto) 34.3 % (9.0-44.0); Mean Corpuscular HGB Conc 31.6 % (32.0-36.0); Mean Corpuscular Volume 82.4 fL (80.0-100.0); Mean Platelet Volume 7.5 fL (7.0-11.0); Mono # (Auto) 0.3 th/mm3 (0.0-0.9); Mono % (Auto) 11.3 % (0.0-8.0); Neut # (Auto) 1.4 th/mm3 (1.8-7.7); Neut % (Auto) 53.8 % (16.0-70.0); Platelet Count 120 th/mm3 (150-450); Red Blood Count 3.32 mil/mm3 (4.00-5.30); Red Cell Distribution Width 21.8 % (11.6-17.2); White Blood Count 2.6 th/mm3 (4.0-11.0)
--- NOTE | 2018-02-13 03:18 | XR ---
EXAM DATE: 02/13/2018 2:58 AM EDT AGE/SEX: 67 years / Female INDICATIONS: Short of breath. CLINICAL DATA: This is the patient's sequela encounter. Patient reports that signs and symptoms have been present for 2 days and indicates a pain score of 0/10. MEDICAL/SURGICAL HISTORY: Lupus. Asthma. Chronic obstructive pulmonary disease.Hypoglycemia. Tubal ligation. Left hip replacement. COMPAR[place]: [facility] [place], 02/12/2018. [facility] [place], 01/19/[place]. . FINDINGS: Suspected mild infiltrate developing at the left lung base. No pleural effusion. No pneumothorax. Heart size stable, within normal limits. Old rib fractures are again seen. CONCLUSION: Early/mild infiltrate suspected left base. Electronically signed by: Marlon Nascimento MD 02/13/2018 3:17 AM EDT
[2018-02-13 03:29] LABS: Alanine Aminotransferase 27 U/L (10-53); Albumin 2.9 g/dL (3.4-5.0); Anion Gap 13 meq/L (5-15); Aspartate Aminotransferase 81 U/L (15-37); Blood Urea Nitrogen 7 mg/dL (7-18); Calcium 7.9 mg/dL (8.5-10.1); Chloride 106 meq/L (98-107); Glomerular Filtration Rate Greater Than 89 mL/min (>89); Glucose,Random 81 mg/dL (74-106); Potassium 3.4 meq/L (3.5-5.1); Sodium 144 meq/L (136-145)
[2018-02-13 03:32] LABS: Alkaline Phosphatase 74 U/L (45-117); Total Protein 5.9 g/dL (6.4-8.2)
--- NOTE | 2018-02-13 03:58 | ED ---
HPI General Chief Complaint: Shortness of Breath/Dyspnea Stated Complaint: ETOH/headache/chest pain Time Seen by Provider: 02/13/18 02:02 Source: patient Mode of arrival: ambulatory Limitations: no limitations History of Present Illness The patient 67 years old. She arrives complaining shortness of breath. She has a history of COPD. She reports coughing up phlegm. She reports chronic cough however it is worse lately. She reports her heart rate increases to the 140s anytime she attempts to walk. Dyspnea on exertion is reported. MD Complaint: shortness of breath and cough Onset (ago): day(s) (2) Context: other Severity: mild Consistency/Duration: constant Relieving factors: bronchodilators Known history of: COPD Related Data Home Medications Medication Instructions Recorded Confirmed albuterol sulfate 1.25 mg INHALATION QID PRN 02/12/18 02/12/18 albuterol sulfate [Ventolin HFA] 2 puff INHALATION Q4H PRN 02/12/18 02/12/18 Previous Rx's Medication Instructions Recorded methylprednisolone [Medrol (Craig)] See Label Instructions PO PER PKG 02/12/18 DIR #21 each Allergies Allergy/AdvReac Type Severity Reaction Status Date / Time No Known Allergies Allergy Unknown Uncoded 01/20/18 18:50 Review of Systems Except as stated in HPI: all other systems reviewed are negative Constitutional Reports as per HPI [facility] Social History Social History Substance History: No History of Abuse Second Hand Smoke Exposure: Yes Smoking Status: Never smoker How Often Do You Have a Drink Containing Alcohol: 4 or more times a week Recent Travel in [facility] within the Last 8 Weeks: No Recent Out of Country Travel within the Last 8 Weeks: No Immunization History Tetanus Immunization: Unsure Exam Narrative Exam Narrative: GENERAL: Well-nourished well-developed 67-year-old female SKIN: Focused skin assessment warm/dry. HEAD: Atraumatic. Normocephalic. EYES: Pupils equal and round. No scleral icterus. No injection or drainage. ENT: No nasal bleeding or discharge. Mucous membranes pink and moist. NECK: Trachea midline. No JVD. CARDIOVASCULAR: Regular rate and rhythm. No murmur appreciated. RESPIRATORY: Occasional wheezing. No significant tachypnea. GASTROINTESTINAL: Abdomen soft, non-tender, nondistended. Hepatic and splenic margins not palpable. MUSCULOSKELETAL: No obvious deformities. No clubbing. No cyanosis. No edema. NEUROLOGICAL: Awake and alert. No obvious cranial nerve deficits. Motor grossly within normal limits. Normal speech. PSYCHIATRIC: Appropriate mood and affect; insight and judgment normal. Course Initial Documented Vital Signs Temperature 98.3 F 02/13/18 02:08 Pulse Rate 90 02/13/18 02:08 Respiratory Rate 20 02/13/18 02:08 Blood Pressure 116/71 02/13/18 02:08 Pulse Oximetry 99 02/13/18 02:08 Last Documented Vital Signs Temperature 98.3 F 02/13/18 02:08 Pulse Rate 90 02/13/18 02:08 Respiratory Rate 20 02/13/18 02:08 Blood Pressure 116/71 02/13/18 02:08 Pulse Oximetry 99 02/13/18 02:08 Medical Decision Making MDM Narrative Medical decision making narrative: The patient was unable to walk in the ER. Admission for antibiotic treatment for nebulized breathing treatments. Call placed to the hospital service. Lab Data Lab results reviewed: Yes I reviewed the patient's lab results. Lab results narrative: Chronic leukopenia as noted as it is anemia Chest x-ray reveals possible left base density Result diagrams: 02/13/18 02:44 02/13/18 02:44 Lab Results 02/13/18 02/13/18 Range/Units 02:44 02:44 WBC 2.6 L (4.0-11.0) th/mm3 RBC 3.32 L (4.00-5.30) mil/mm3 Hgb 8.6 L (11.6-15.3) gm/dL Hct 27.3 L (35.0-46.0) % MCV 82.4 (80.0-100.0) fL MCH 26.0 L (27.0-34.0) pg MCHC 31.6 L (32.0-36.0) % RDW 21.8 H (11.6-17.2) % Plt Count 120 L (150-450) th/mm3 MPV 7.5 (7.0-11.0) fL Neut % (Auto) 53.8 (16.0-70.0) % Lymph % (Auto) 34.3 (9.0-44.0) % [place] % (Auto) 11.3 H (0.0-8.0) % Eos % (Auto) 0.1 (0.0-4.0) % Baso % (Auto) 0.5 (0.0-2.0) % Neut # (Auto) 1.4 L (1.8-7.7) th/mm3 Lymph # (Auto) 0.9 L (1.0-4.8) th/mm3 [place] # (Auto) 0.3 (0.0-0.9) th/mm3 Eos # (Auto) 0.0 (0.0-0.4) th/mm3 Baso # (Auto) 0.0 (0.0-0.2) th/mm3 WBC Differential . Differential Comment Auto diff final Sodium 144 (136-145) meq/L Potassium 3.4 L (3.5-5.1) meq/L Chloride 106 (98-107) meq/L Carbon Dioxide 25.0 (21.0-32.0) meq/L Anion Gap 13 (5-15) meq/L BUN 7 (7-18) mg/dL Creatinine 0.32 L (0.50-1.00) mg/dL Estimated GFR Greater than 89 (>89) mL/min Random Glucose 81 (74-106) mg/dL Calcium 7.9 L (8.5-10.1) mg/dL Total Bilirubin 0.3 (0.2-1.0) mg/dL AST 81 H (15-37) U/L ALT 27 (10-53) U/L Alkaline Phosphatase 74 (45-117) U/L Troponin I Less than 0.02 L (0.02-0.05) ng/mL Total Protein 5.9 L (6.4-8.2) g/dL Albumin 2.9 L (3.4-5.0) g/dL Imaging Data Radiologist's impression: ITS Impressions Chest X-Ray 02/13/18 02:32 CONCLUSION: Early/mild infiltrate suspected left base. Discharge Plan Discharge Disposition Patient Disposition: 30 Still Patient Physicians Team ED Provider: Gabriel Colunga Primary Care Provider: Michael Contreras Rxs /Orders / Referrals /Forms Prescriptions: No Action albuterol sulfate 1.25 mg/3 mL Solution For Nebulization 1.25 mg INHALATION QID PRN (Reason: Respiratory Distress) RF: 0 albuterol sulfate [Ventolin HFA] 90 mcg/actuation Hfa Aerosol Inhaler 2 puff INHALATION Q4H PRN (Reason: Respiratory Distress) RF: 0 methylprednisolone [Medrol (Craig)] 4 mg tablets,dose pack See Label Instructions PO PER PKG DIR Qty: 21 RF: 0 Status ED Status: Ready for Discharge
[2018-02-13] MEDS ORDERED: Azithromycin Inj 500 MG in Sodium Chlor 0.9% Inj 250 ML IV.SIG ONE (04:44)
[2018-02-13 05:59] LABS: ABG Base Excess 2.2 mmol/L (-2-2); ABG PCO2 38 mmHg (38-42); ABG PO2 73 mmHg (61-120)
[2018-02-13] MEDS ORDERED: MethylPREDNISolone Sod Succinate Inj 40 MG/ML Vial IV.PUSH SCH (09:00)
--- NOTE | 2018-02-13 13:53 | P.HPIM ---
History of Present Illness Primary Care Physician: Michael Contreras MD Chief Complaint: Shortness of breath History of Present Illness: This is a 67-year-old female, chronic smoker, with history of lupus and COPD presenting with progressive shortness of breath for about 1 week which has been worsening. During the last few days, this is worsened associated with cough productive with yellowish-green sputum without any note of fever or chills. Because of progressive and worsening nature, patient decided to go to the hospital. Patient denies any chest pain, urinary symptoms, nausea, vomiting, abdominal pain. She uses oxygen 24/7. She denies any chest pain but experiences palpitations and rapid heart rate when she gets up to stand. Inpatient Certification: I certify that the inpatient services were ordered in accordance with Medicare regulations governing the order. This includes certification that hospital inpatient services are reasonable and necessary and in the case of services not specified as inpatient-only under 42 CFR 419.22(n), that they are appropriately provided as inpatient services in accordance to with the 2-midnight benchmark under 43 CFR 412.3(e) Estimated Total Length of Stay (Days): 2 Plans for Post Hospital Care: Home Review of Systems All other pertinent systems were reviewed and are negative. [facility] - History History Provided By: Patient - Medical History Medical History: Medical History (Last Updated 02/13/18 @ 13:52 by Jose Quinones MD) Lupus COPD (chronic obstructive pulmonary disease) Diabetes Pneumonia - Surgical History Surgical History: Surgical History (Last Reviewed 02/13/18 @ 13:53 by Jose Quinones MD) History of total left hip replacement Hx of tubal ligation - Family History Family History: Family History (Last Updated 02/13/18 @ 13:53 by Jose Quinones MD) Other COPD (chronic obstructive pulmonary disease) - Tobacco History Second Hand Smoke Exposure: Yes Tobacco Use In Past 30 Days: Yes (2 packs per day previously ofr 37 years, down to 4 cigs a day) Smoking Status: Current every day smoker Tobacco Type: Cigarettes - Alcohol History How Often Do You Have a Drink Containing Alcohol: Monthly or less - Substance Use History Substance History: No History of Abuse - Travel History Recent Travel in the [place] Within the Last 8 Weeks: No Recent Travel Out of the Country Within the Last 8 Weeks: No - Immunization History Tetanus Immunization: >5 Years Hx Influenza Vaccine This Season: No Medications and Allergies Active Medications: Active Medications Albuterol (Duoneb Neb (Nikhil)) 1 ampul NEB Q6HR NEB NIKHIL Last Admin: 02/13/18 07:57 Dose: 1 ampul Azithromycin (Zithromax) 500 mg PO DAILY [facility] Stop: 02/16/18 09:01 Ceftriaxone Sodium 1,000 mg/ (Sodium Chloride) 100 mls @ 200 mls/hr IV.SIG Q24H NIKHIL Methylprednisolone Sodium Succinate (Solumedrol Inj) 40 mg IV.PUSH Q6H NIKHIL Last Admin: 02/13/18 08:22 Dose: 40 mg Sodium Chloride (Ns Flush) 2 ml IV.FLUSH BID NIKHIL Last Admin: 02/13/18 08:22 Dose: 2 ml Sodium Chloride (Ns Flush) 2 ml IV.FLUSH PRN PRN PRN Reason: FLUSH AFTER USING IV ACCESS Allergies Allergy/AdvReac Type Severity Reaction Status Date / Time No Known Allergies Allergy Unknown Uncoded 01/20/18 18:50 Home Medications Medication Instructions Recorded Confirmed Type albuterol sulfate 1.25 mg INHALATION QID PRN 02/12/18 02/13/18 History albuterol sulfate [Ventolin HFA] 2 puff INHALATION Q4H PRN 02/12/18 02/13/18 History Exam Vital signs: Vital Signs 02/13/18 02:08 02/13/18 02:32 02/13/18 02:52 Temperature 98.3 F Pulse Rate 90 79 78 Respiratory Rate 20 16 16 Blood Pressure 116/71 Pulse Oximetry 99 99 02/13/18 04:09 02/13/18 04:40 02/13/18 07:05 Temperature 97.8 F Pulse Rate 96 H 82 Respiratory Rate 20 20 Blood Pressure 127/66 117/66 Pulse Oximetry 99 95 99 02/13/18 08:20 02/13/18 08:30 02/13/18 08:55 Temperature 97.8 F 97.7 F Pulse Rate 90 68 110 H Respiratory Rate 14 18 20 Blood Pressure 124/58 L 124/65 149/71 H Pulse Oximetry 99 96 02/13/18 11:46 Temperature 97.6 F Pulse Rate 88 Respiratory Rate 20 Blood Pressure 129/60 Pulse Oximetry 100 Intake & Output 02/12/18 02/13/18 02/13/18 18:59 06:59 18:59 Intake Total 350 / 350 Balance 350 / 350 Weight 58 kg 47.174 kg Intake: IV 350 / 350 Azithromycin Inj 500 MG In NS 250 / 250 Inj 250 ML @ 250 mls/hr IV.SIG ONCE ONE Rx#:[id number] Rocephin Inj 1,000 MG In NS Inj 100 / 100 100 ML @ 200 mls/hr IV.SIG ONCE ONE Rx#:[id number] Other: # Voids 3 Weight On Admission 47.174 kg Narrative: GENERAL: Not in acute distress, well-nourished. HEAD: No temporal or scalp tenderness. EYES: PERRL, full EOMs, no jaundice, nonicteric, pink conjunctivae without injection, moist mucosa ENT: Nose without bleeding, purulent drainage. Throat without erythema, tonsillar hypertrophy or exudate. NECK: Trachea midline, no mass, no obvious thyromegaly. CARDIOVASCULAR: Regular rate and rhythm without murmurs, gallops, or rubs. RESPIRATORY: Clear to auscultation with normal respiratory effort. Breath sounds equal bilaterally. No use of accessory muscles of respiration. GASTROINTESTINAL: Abdomen soft, normal bowel sounds, non-tender, nondistended. MUSCULOSKELETAL: Extremities without clubbing, cyanosis, or edema. No joint tendernes. No calf tenderness. Distal pulses intact, 2+ bilaterally. NEUROLOGICAL: Awake, alert, oriented 3. No obvious cranial nerve deficits. Moves all 4 extremities, muscle strength testing 5 over 5. No focal neurologic deficits. Results - Labs CBC & Chem 7: 02/13/18 02:44 02/13/18 02:44 Labs: Short CBC 02/13/18 Range/Units 02:44 WBC 2.6 L (4.0-11.0) th/mm3 Hgb 8.6 L (11.6-15.3) gm/dL Hct 27.3 L (35.0-46.0) % Plt Count 120 L (150-450) th/mm3 BMP 02/13/18 02:44 Sodium 144 Potassium 3.4 L Chloride 106 Carbon Dioxide 25.0 BUN 7 Creatinine 0.32 L Calcium 7.9 L Cardiac Enzymes 02/13/18 Range/Units 02:44 Troponin I Less than 0.02 L (0.02-0.05) ng/mL Liver Function 02/13/18 Range/Units 02:44 Total Bilirubin 0.3 (0.2-1.0) mg/dL AST 81 H (15-37) U/L ALT 27 (10-53) U/L Alkaline Phosphatase 74 (45-117) U/L Albumin 2.9 L (3.4-5.0) g/dL - Imaging Impressions Chest X-Ray 02/13/18 02:32 CONCLUSION: Early/mild infiltrate suspected left base. Caprini VTE Risk Assessment Caprini VTE Risk Assessment: Moderate/High Risk (score >= 2) Caprini Risk Assessment Model: Point Value = 1 Point Value = 2 Point Value = 3 Point Value = 5 Age 41-60 Minor surgery BMI > 25 kg/m2 Swollen legs Varicose veins or History of unexplained or recurrent spontaneous Oral contraceptives or hormone replacement Sepsis (< 1 month) Serious lung disease, including pneumonia (< 1 month) Abnormal pulmonary function Acute myocardial infarction Congestive heart failure (< 1 month) History of inflammatory bowel disease Medical patient at bed rest Age 61-74 Arthroscopic surgery Major open surgery (> 45 min) Laparoscopic surgery (> 45 min) Malignancy Confined to bed (> 72 hours) Immobilizing plaster cast Central venous access Age >= 75 History of VTE Family history of VTE Factor V Leiden Prothrombin [id number] Lupus anticoagulant Anticardiolipin antibodies Elevated serum homocysteine Heparin-induced thrombocytopenia Other congenital or acquired thrombophilia Stroke (< 1 month) Elective arthroplasty Hip, pelvis, or leg fracture Acute spinal cord injury (< 1 month) Prophylaxis Regimen: Total Risk Factor Score Risk Level Prophylaxis Regimen 0-1 Low Early ambulation 2 Moderate Order ONE of the following: *Sequential Compression Device (SCD) *Heparin 5000 units SQ BID 3-4 Higher Order ONE of the following medications: *Heparin 5000 units SQ TID *Enoxaparin/Lovenox 40 mg SQ daily (WT < 150 kg, CrCl > 30 mL/min) *Enoxaparin/Lovenox 30 mg SQ daily (WT < 150 kg, CrCl > 10-29 mL/min) *Enoxaparin/Lovenox 30 mg SQ BID (WT < 150 kg, CrCl > 30 mL/min) AND/OR *Sequential Compression Device (SCD) 5 or more Highest Order ONE of the following medications: *Heparin 5000 units SQ TID (Preferred with Epidurals) *Enoxaparin/Lovenox 40 mg SQ daily (WT < 150 kg, CrCl > 30 mL/min) *Enoxaparin/Lovenox 30 mg SQ daily (WT < 150 kg, CrCl > 10-29 mL/min) *Enoxaparin/Lovenox 30 mg SQ BID (WT < 150 kg, CrCl > 30 mL/min) AND *Sequential Compression Device (SCD) Assessment and Plan - Plan This is a 67-year-old female with history of chronic smoking and COPD being admitted for shortness of breath for 1 week Shortness of breath secondary to COPD exacerbation pneumonia with hypoxic respiratory failure -Chest x-ray showed left basilar infiltrate. ABG unremarkable. Continue ceftriaxone and azithromycin, continue steroids intravenously, decrease to every 8 hours, start Advair in the next few days, continue duo nebs, start Mucomyst nebs and PO Palpitations-check EKG, start telemetry, troponin negative. Mild anemia and thrombocytopenia-recheck CBC, check iron panel, no note of bleeding, follow-up as outpatient. Generalized weakness-start physical therapy Hypokalemia-replace, check BMP tomorrow. DVT prophylaxis: Lovenox Possible discharge below Medicare physical therapy versus nursing home home. H&P: Quality - VTE Deep Vein Thrombosis/Pulmonary Embolism Present on Admission: No
[2018-02-13] MEDS: MethylPREDNISolone Sod Succinate Inj 40 MG/ML Vial IV.PUSH SCH ×2 (16:33→21:43)
--- NOTE | 2018-02-13 18:34 | MB ---
cc: Jose R Espana MD, V J MD DATE: 02/13/2018 REASON FOR CONSULTATION: Chronic obstructive pulmonary disease. HISTORY OF PRESENT ILLNESS: This is a 67-year-old lady with a past history of COPD and chronic bronchitis, history of systemic lupus who was admitted with progressive shortness of breath, wheezing, cough, and chest congestion. The patient was bringing up yellowish-green mucus and she became quite short of breath and, in spite of being on oxygen at 2 liters all the time, she could not catch her breath and thus came to the emergency room and was admitted. She was also having some rapid heart beat and she denied fevers, chills, night sweats, and denied any vomiting or aspiration. PAST MEDICAL HISTORY: Included recurrent exacerbations of bronchitis and history of left hip replacement surgery. Previous history of systemic lupus erythematosus, history of diabetes mellitus type 2, prior history of pneumonia and chronic bronchitis. HABITS: The patient smoked 1 to 2 packs per day for over 35 years, now smokes just a few, alcohol use minimal. ALLERGIES: NO KNOWN DRUG ALLERGIES. FAMILY HISTORY: Significant for COPD. MEDICATIONS: List included Zithromax 500 mg a day and Rocephin 1 gram IV daily, oxygen 2 liters and DuoNeb q.i.d. REVIEW OF SYSTEMS: The patient has lost weight. She has no leg swelling. Denies headaches, blackouts. She has cough, wheezing and orthopnea. She has no abdominal pains, nausea or GI bleed. No urinary symptoms. She has no anxiety, no depression. No skin lesions. PHYSICAL EXAMINATION: GENERAL: This is a thinly built, elderly, white female who is alert, pale, in no acute distress. VITAL SIGNS: Blood pressure 138/70, pulse is 92, respirations 16, temperature 98.2. HEENT: Head is normocephalic. Pupils are reactive and equal. Tongue moist. Throat is injected. Nasal mucosa is clear. NECK: Supple, no bruits or thyroid enlargement or lymphadenopathy. CHEST: Distant breath sounds and expiratory wheezes bilaterally with prolonged expirations. No crackles on either side. HEART: Sounds are regular, S1 and S2. No murmur. No S3. ABDOMEN: Soft, nontender. No organomegaly. Bowel sounds are active. EXTREMITIES: No lesions, no edema, no calf tenderness. NEUROLOGIC: Reflexes are 1+ with no gross motor deficits. Cranial nerves grossly intact. SKIN: No lesions. ASSESSMENT: 1. Chronic obstructive pulmonary disease with acute exacerbation. 2. Probable basilar pneumonia and hypoxemia. 3. Anemia of chronic disease. 4. Nicotine dependency. 5. History of systemic lupus. 6. Diabetes mellitus. PLAN: The patient has been started on antibiotic coverage, which we will continue as ordered and nebulized albuterol and Atrovent solution added every 6 hours. Symbicort 160/4.5 one puff twice daily was ordered and the patient was counseled about quitting cigarette smoking. She will also have a pulmonary function test done when she is clinically stable. Nicotine patch 14 mg for 24 hours as needed. The patient will have a chest x-ray performed in a.m. Steroids will be tapered down if she is clinically stable over the next 24 hours. Thank you thank Dr. Quinones for this consultation. Jose R Espana MD VJD/ , 06:01 PM , 06:32 PM
[2018-02-13] MEDS ORDERED: Budesonide-Formoterol 160/4.5 MCG 6 GM Inhaler INH SCH (21:00)
[2018-02-13] MEDS: guaiFENesin 600 MG ER Tablet PO SCH (21:42)
[2018-02-14] MEDS: MethylPREDNISolone Sod Succinate Inj 40 MG/ML Vial IV.PUSH SCH (05:56)
[2018-02-14 07:08] LABS: Hematocrit 27.1 % (35.0-46.0); Hemoglobin 8.6 gm/dL (11.6-15.3); Mean Corpuscular HGB Conc 31.6 % (32.0-36.0); Mean Corpuscular Hemoglobin 26.1 pg (27.0-34.0); Mean Corpuscular Volume 82.6 fL (80.0-100.0); Mean Platelet Volume 7.6 fL (7.0-11.0); Platelet Count 117 th/mm3 (150-450); Red Blood Count 3.28 mil/mm3 (4.00-5.30); Red Cell Distribution Width 22.4 % (11.6-17.2); White Blood Count 3.8 th/mm3 (4.0-11.0)
[2018-02-14 07:34] LABS: % Iron Saturation 7.6 % (20-50); Anion Gap 8 meq/L (5-15); Blood Urea Nitrogen 10 mg/dL (7-18); Calcium 8.7 mg/dL (8.5-10.1); Carbon Dioxide 29.5 meq/L (21.0-32.0); Chloride 103 meq/L (98-107); Glomerular Filtration Rate Greater Than 89 mL/min (>89); Glucose,Random 87 mg/dL (74-106); Iron 29 mcg/dL (50-170); Potassium 3.9 meq/L (3.5-5.1); Sodium 140 meq/L (136-145); Total Iron Binding Capacity 379 mcg/dL (250-450)
--- NOTE | 2018-02-14 08:29 | P.PNIM ---
Subjective Interval history: The patient is feeling much better today and back to her baseline, and asking to go home. She is on 2 L O2 at home and currently. She denies any further shortness of breath. She has been ambulating in the room. No fever, chills, chest pain, palpitations. Cough is no longer productive, rare dry coughing. Her PCP is Dr. Contreras, and she states she will follow-up with his office on Friday. Physical Exam Vital signs: Vital Signs 02/13/18 08:30 02/13/18 08:55 02/13/18 11:46 Temperature 97.8 F 97.7 F 97.6 F Pulse Rate 68 110 H 88 Respiratory Rate 18 20 20 Blood Pressure 124/65 149/71 H 129/60 Pulse Oximetry 96 100 02/13/18 15:44 02/13/18 15:48 02/13/18 20:00 Temperature 97.7 F 98.1 F Pulse Rate 88 90 77 Respiratory Rate 20 20 18 Blood Pressure 146/65 H 138/65 Pulse Oximetry 97 99 02/14/18 00:00 02/14/18 04:00 Temperature 98.3 F 98.3 F Pulse Rate 76 67 Respiratory Rate 18 18 Blood Pressure 112/61 118/58 L Pulse Oximetry 99 99 Intake & Output 02/13/18 02/14/18 02/14/18 18:59 06:59 18:59 Intake Total 350 / 350 320 / 320 Balance 350 / 350 320 / 320 Weight 104 lb 106 lb 4.205 oz Intake: IV 350 / 350 Azithromycin Inj 500 MG In NS 250 / 250 Inj 250 ML @ 250 mls/hr IV.SIG ONCE ONE Rx#:[id number] Rocephin Inj 1,000 MG In NS Inj 100 / 100 100 ML @ 200 mls/hr IV.SIG ONCE ONE Rx#:[id number] Oral 320 / 320 Other: # Voids 3 1 Date of Last Bowel Movement 02/13/18 # Bowel Movements 1 1 Weight On Admission 104 lb Narrative: GENERAL: Well-developed fair-nourished. In no acute distress. NECK: No carotid bruits. No JVD. CARDIOVASCULAR: Regular rate and rhythm. No murmur appreciated. RESPIRATORY: No accessory muscle use. Clear to auscultation. Breath sounds equal bilaterally. No wheezing. MUSCULOSKELETAL: No clubbing or cyanosis. No edema. NEUROLOGICAL: Awake and alert. Normal speech. Results - Labs CBC & Chem 7: 02/14/18 06:08 02/14/18 06:08 Laboratory Results - last 24 hr 02/14/18 02/14/18 06:08 06:08 WBC 3.8 L RBC 3.28 L Hgb 8.6 L Hct 27.1 L MCV 82.6 MCH 26.1 L MCHC 31.6 L RDW 22.4 H Plt Count 117 L MPV 7.6 Prelim Diff (Auto) Manual diff required Differential Comment . Sodium 140 Potassium 3.9 Chloride 103 Carbon Dioxide 29.5 Anion Gap 8 BUN 10 Creatinine 0.27 L Estimated GFR Greater than 89 Random Glucose 87 Calcium 8.7 D Iron 29 L TIBC 379 % Saturation 7.6 L Assessment and Plan - Plan 67-year-old female with history of chronic smoking and COPD being admitted for shortness of breath for 1 week Shortness of breath secondary to COPD exacerbation pneumonia with hypoxic respiratory failure: -Chest x-ray showed left basilar infiltrate. ABG unremarkable. Afebrile with no leukocytosis. -Patient improved much faster than expected with treatment. Change IV ceftriaxone and azithromycin to oral antibiotics at discharge. Change IV steroids to oral taper (has dose pack Rx at home she hasn't filled yet ). Start Advair in the next few days, continue duo nebs and supplemental O2 ( has at home). Strongly recommend tobacco cessation. Mild anemia and thrombocytopenia: Stable overnight. Iron levels low, recommend iron supplementation. DVT prophylaxis: Lovenox Discussed Condition With: Patient, Dr. Quinones Discharge Planning: Discharge patient to home with [facility] Condition on discharge: Improved Regular Diet as tolerated Regular activity Rx written: Ceftin, azithromycin Follow-up with primary care physician
[2018-02-14] MEDS ORDERED: Azithromycin 250 MG Tablet PO SCH (09:00)
[2018-02-14] MEDS ORDERED: Enoxaparin Inj 40 MG/0.4 ML Syringe SQ SCH (09:00)
--- NOTE | 2018-02-14 09:07 | P.DCO ---
- Physical Therapy Order: Evaluate and treat - Home Health Nursing Order: Medical education, Signs/symptoms of disease process, Oxygen administration education, Medication education-adverse effect, Nursing assessment with vital signs - Certification I have seen patient Genevieve Bowens on 02/14/18. My clinical findings support the need for the requested home health care services because: Limited mobility due to disease progression, Patient has SOB, Deconditioned with increased weakness, Medication compliance is questionable I certify that my clinical findings support that this patient is homebound because: Hx COPD - exertion dyspnea/weakness
[2018-02-14 09:08] LABS: Lymphocytes 24 % (9-44); Monocytes 9 % (0-8); Myelocytes 1 % (0-0); Platelet Morphology Normal (Normal)
[2018-02-14 09:09] LABS: Ovalocytes 1+
[2018-02-14] MEDS: guaiFENesin 600 MG ER Tablet PO SCH (09:35)
--- NOTE | 2018-02-14 10:38 | ECG ---
Date Performed: 02/13/2018 Time Performed: 14:37:01 PTAGE: 67 years EKG: Sinus rhythm NORMAL ECG PREVIOUS TRACING : 01/19/2018 23.00 No significant change from previous tracing noted. DOCTOR: Carlos Granados Interpretating Date/Time 02/14/2018 10:36:34
[2018-02-14] MEDS ORDERED: Ferrous Sulfate 325 MG Tablet PO SCH (12:00)
== END 2018-02-14 10:55 | disposition home health service (06) ==
LOC: NEPE 19:25 → NEDA 02-13 06:40 → N06 02-13 08:52
PROVIDERS: ADMIT Hospitalist; ATTEND Hospitalist

== ENCOUNTER 2018-03-12 19:42 | Observation (INO) ==
--- NOTE | 2018-03-12 20:57 | ED ---
HPI General Chief Complaint: Respiratory Symptoms Stated Complaint: Sob Time Seen by Provider: 03/12/18 20:01 History of Present Illness HPI Narrative: This is a [id number] with a past history of COPD and chronic bronchitis, history of systemic lupus who was admitted recently with progressive shortness of breath, wheezing, cough, and chest congestion. The patient was bringing up yellowish-green mucus and she became quite short of breath and, in spite of being on oxygen at 2 liters . pt reports from all the antibiotics she takes she got c-diff and has , had many repeat episodes of diarrhea + for C-diff, now her diarrhea has returned and her cough and SOB has returned as well. Green phelgm . coughing excess and SOB . Related Data Home Medications Medication Instructions Recorded Confirmed albuterol sulfate 1.25 mg INHALATION QID PRN 02/12/18 03/12/18 albuterol sulfate [Ventolin HFA] 2 puff INHALATION Q4H PRN 02/12/18 03/12/18 Previous Rx's Medication Instructions Recorded prednisone 20 mg PO BID #11 tab 03/14/18 vancomycin 500 mg PO QID #56 ea 03/14/18 Allergies Allergy/AdvReac Type Severity Reaction Status Date / Time No Known Allergies Allergy Unverified 03/12/18 19:51 Review of Systems Except as stated in HPI: all other systems reviewed are negative Respiratory Reports cough, Reports excessive phlegm production, Reports dyspnea, Reports dyspnea on exertion and Reports wheezing [facility] Medical History Medical History C. difficile colitis (Acute) COPD (chronic obstructive pulmonary disease) (Acute) Diabetes (Acute) Lupus (Acute) Pneumonia (Acute) Social History Social History Substance History: No History of Abuse Second Hand Smoke Exposure: Yes Smoking Status: Current every day smoker Tobacco Type: Cigarettes How Often Do You Have a Drink Containing Alcohol: 2 to 3 times a week Recent Travel in [facility] within the Last 8 Weeks: No Recent Out of Country Travel within the Last 8 Weeks: No Exam Narrative Exam Narrative: GENERAL: listless and SOB mild resp distress SKIN: Warm and dry. HEAD: Atraumatic. Normocephalic. EYES: Pupils equal and round. No scleral icterus. No injection or drainage. ENT: No nasal bleeding or discharge. Mucous membranes pink and moist. NECK: Trachea midline. No JVD. CARDIOVASCULAR: Regular rate and rhythm. RESPIRATORY: wheeze diffuse SOB speaking in broken sentences GASTROINTESTINAL: Abdomen soft, non-tender, nondistended. Hepatic and splenic margins not palpable. MUSCULOSKELETAL: Extremities without clubbing, cyanosis, or edema. No obvious deformities. NEUROLOGICAL: Awake and alert. No obvious cranial nerve deficits. Motor grossly within normal limits. Five out of 5 muscle strength in the arms and legs. Normal speech. PSYCHIATRIC: Appropriate mood and affect; insight and judgment normal. Course Initial Documented Vital Signs Temperature 98.6 F 03/12/18 19:51 Pulse Rate 115 H 03/12/18 19:51 Respiratory Rate 20 03/12/18 19:51 Blood Pressure 130/60 03/12/18 19:51 Pulse Oximetry 100 03/12/18 19:51 Last Documented Vital Signs Temperature 98.4 F 03/14/18 11:53 Pulse Rate 77 03/14/18 11:53 Respiratory Rate 16 03/14/18 11:53 Blood Pressure 147/62 H 03/14/18 11:53 Pulse Oximetry 98 03/14/18 11:53 Medical Decision Making MDM Narrative Medical decision making narrative: c-diff+ copd treated pt admitted no antibiotics at this time Differential Diagnosis Differential Diagnosis: copd exacebation vs bronchitis viral vspna vs ptx vs influenza otherr and infectious diarrhea vs c-diff recurrent Lab Data Lab results reviewed: Yes I reviewed the patient's lab results. Result diagrams: 03/14/18 06:57 03/14/18 06:57 Lab Results 03/12/18 03/12/18 03/12/18 Range/Units 21:10 21:12 22:01 WBC 8.8 (4.0-11.0) th/mm3 RBC 4.44 (4.00-5.30) mil/mm3 Hgb 11.4 L (11.6-15.3) gm/dL Hct 36.3 (35.0-46.0) % MCV 81.8 (80.0-100.0) fL MCH 25.6 L (27.0-34.0) pg MCHC 31.4 L (32.0-36.0) % RDW 22.8 H (11.6-17.2) % Plt Count 160 D (150-450) th/mm3 MPV 7.6 (7.0-11.0) fL Prelim Diff (Auto) Manual diff required WBC Differential Manual diff final Seg Neuts % (Manual) 67 (16-70) % Band Neuts % (Manual) 6 (0-6) % Lymphocytes % (Manual) 19 (9-44) % Monocytes % (Manual) 5 (0-8) % Eosinophils % (Manual) 3 (0-4) % Abs Neuts (Manual) 6.4 (1.8-7.7) th/mm3 Differential Comment . Platelet Estimate Normal (Normal) Platelet Morphology Normal (Normal) Ovalocytes 1+ H (None) Sodium 139 (136-145) meq/L Potassium 3.8 (3.5-5.1) meq/L Chloride 102 (98-107) meq/L Carbon Dioxide 25.0 (21.0-32.0) meq/L Anion Gap 12 (5-15) meq/L BUN 10 (7-18) mg/dL Creatinine 0.38 L (0.50-1.00) mg/dL Estimated GFR Greater than 89 (>89) mL/min POC Glucose (68-110) mg/dl Random Glucose 63 L (74-106) mg/dL Calcium 8.0 L (8.5-10.1) mg/dL Total Bilirubin 0.2 (0.2-1.0) mg/dL AST 133 H (15-37) U/L ALT 41 (10-53) U/L Alkaline Phosphatase 135 H (45-117) U/L Troponin I Less than 0.02 L (0.02-0.05) ng/mL Total Protein 6.1 L (6.4-8.2) g/dL Albumin 2.8 L (3.4-5.0) g/dL Stl C.difficile Tox PCR Positive H (Negative) St C. diff Tox Epid 027 Negative (Negative) 03/13/18 03/13/18 03/13/18 Range/Units 05:23 05:43 06:01 WBC (4.0-11.0) th/mm3 RBC (4.00-5.30) mil/mm3 Hgb (11.6-15.3) gm/dL Hct (35.0-46.0) % MCV (80.0-100.0) fL MCH (27.0-34.0) pg MCHC (32.0-36.0) % RDW (11.6-17.2) % Plt Count (150-450) th/mm3 MPV (7.0-11.0) fL Prelim Diff (Auto) WBC Differential Seg Neuts % (Manual) (16-70) % Band Neuts % (Manual) (0-6) % Lymphocytes % (Manual) (9-44) % Monocytes % (Manual) (0-8) % Eosinophils % (Manual) (0-4) % Abs Neuts (Manual) (1.8-7.7) th/mm3 Differential Comment Platelet Estimate (Normal) Platelet Morphology (Normal) Ovalocytes (None) Sodium (136-145) meq/L Potassium (3.5-5.1) meq/L Chloride (98-107) meq/L Carbon Dioxide (21.0-32.0) meq/L Anion Gap (5-15) meq/L BUN (7-18) mg/dL Creatinine (0.50-1.00) mg/dL Estimated GFR (>89) mL/min POC Glucose 66 L 145 H (68-110) mg/dl Random Glucose 87 (74-106) mg/dL Calcium (8.5-10.1) mg/dL Total Bilirubin (0.2-1.0) mg/dL AST (15-37) U/L ALT (10-53) U/L Alkaline Phosphatase (45-117) U/L Troponin I (0.02-0.05) ng/mL Total Protein (6.4-8.2) g/dL Albumin (3.4-5.0) g/dL Stl C.difficile Tox PCR (Negative) St C. diff Tox Epid 027 (Negative) 03/13/18 03/13/18 03/13/18 Range/Units 08:24 12:27 17:56 WBC (4.0-11.0) th/mm3 RBC (4.00-5.30) mil/mm3 Hgb (11.6-15.3) gm/dL Hct (35.0-46.0) % MCV (80.0-100.0) fL MCH (27.0-34.0) pg MCHC (32.0-36.0) % RDW (11.6-17.2) % Plt Count (150-450) th/mm3 MPV (7.0-11.0) fL Prelim Diff (Auto) WBC Differential Seg Neuts % (Manual) (16-70) % Band Neuts % (Manual) (0-6) % Lymphocytes % (Manual) (9-44) % Monocytes % (Manual) (0-8) % Eosinophils % (Manual) (0-4) % Abs Neuts (Manual) (1.8-7.7) th/mm3 Differential Comment Platelet Estimate (Normal) Platelet Morphology (Normal) Ovalocytes (None) Sodium (136-145) meq/L Potassium (3.5-5.1) meq/L Chloride (98-107) meq/L Carbon Dioxide (21.0-32.0) meq/L Anion Gap (5-15) meq/L BUN (7-18) mg/dL Creatinine (0.50-1.00) mg/dL Estimated GFR (>89) mL/min POC Glucose 142 H 205 H 262 H (68-110) mg/dl Random Glucose (74-106) mg/dL Calcium (8.5-10.1) mg/dL Total Bilirubin (0.2-1.0) mg/dL AST (15-37) U/L ALT (10-53) U/L Alkaline Phosphatase (45-117) U/L Troponin I (0.02-0.05) ng/mL Total Protein (6.4-8.2) g/dL Albumin (3.4-5.0) g/dL Stl C.difficile Tox PCR (Negative) St C. diff Tox Epid 027 (Negative) 03/13/18 03/14/18 03/14/18 Range/Units 21:19 06:57 06:57 WBC 4.2 (4.0-11.0) th/mm3 RBC 3.79 L (4.00-5.30) mil/mm3 Hgb 9.7 L (11.6-15.3) gm/dL Hct 30.8 L (35.0-46.0) % MCV 81.3 (80.0-100.0) fL MCH 25.7 L (27.0-34.0) pg MCHC 31.6 L (32.0-36.0) % RDW 22.3 H (11.6-17.2) % Plt Count 143 L (150-450) th/mm3 MPV 8.0 (7.0-11.0) fL Prelim Diff (Auto) Manual diff required WBC Differential Manual diff final Seg Neuts % (Manual) 89 H (16-70) % Band Neuts % (Manual) 2 (0-6) % Lymphocytes % (Manual) 2 L (9-44) % Monocytes % (Manual) 7 (0-8) % Eosinophils % (Manual) (0-4) % Abs Neuts (Manual) 3.8 (1.8-7.7) th/mm3 Differential Comment . Platelet Estimate Low L (Normal) Platelet Morphology Normal (Normal) Ovalocytes 1+ H (None) Sodium 135 L (136-145) meq/L Potassium 4.1 (3.5-5.1) meq/L Chloride 97 L (98-107) meq/L Carbon Dioxide 29.9 (21.0-32.0) meq/L Anion Gap 8 (5-15) meq/L BUN 8 (7-18) mg/dL Creatinine 0.25 L (0.50-1.00) mg/dL Estimated GFR Greater than 89 (>89) mL/min POC Glucose 224 H (68-110) mg/dl Random Glucose 139 H (74-106) mg/dL Calcium 8.9 D (8.5-10.1) mg/dL Total Bilirubin (0.2-1.0) mg/dL AST (15-37) U/L ALT (10-53) U/L Alkaline Phosphatase (45-117) U/L Troponin I (0.02-0.05) ng/mL Total Protein (6.4-8.2) g/dL Albumin (3.4-5.0) g/dL Stl C.difficile Tox PCR (Negative) St C. diff Tox Epid 027 (Negative) 03/14/18 Range/Units 08:33 WBC (4.0-11.0) th/mm3 RBC (4.00-5.30) mil/mm3 Hgb (11.6-15.3) gm/dL Hct (35.0-46.0) % MCV (80.0-100.0) fL MCH (27.0-34.0) pg MCHC (32.0-36.0) % RDW (11.6-17.2) % Plt Count (150-450) th/mm3 MPV (7.0-11.0) fL Prelim Diff (Auto) WBC Differential Seg Neuts % (Manual) (16-70) % Band Neuts % (Manual) (0-6) % Lymphocytes % (Manual) (9-44) % Monocytes % (Manual) (0-8) % Eosinophils % (Manual) (0-4) % Abs Neuts (Manual) (1.8-7.7) th/mm3 Differential Comment Platelet Estimate (Normal) Platelet Morphology (Normal) Ovalocytes (None) Sodium (136-145) meq/L Potassium (3.5-5.1) meq/L Chloride (98-107) meq/L Carbon Dioxide (21.0-32.0) meq/L Anion Gap (5-15) meq/L BUN (7-18) mg/dL Creatinine (0.50-1.00) mg/dL Estimated GFR (>89) mL/min POC Glucose 151 H (68-110) mg/dl Random Glucose (74-106) mg/dL Calcium (8.5-10.1) mg/dL Total Bilirubin (0.2-1.0) mg/dL AST (15-37) U/L ALT (10-53) U/L Alkaline Phosphatase (45-117) U/L Troponin I (0.02-0.05) ng/mL Total Protein (6.4-8.2) g/dL Albumin (3.4-5.0) g/dL Stl C.difficile Tox PCR (Negative) St C. diff Tox Epid 027 (Negative) Imaging Data Radiologist's impression: Chest X-Ray 03/12/18 00:00 CONCLUSION: No active disease. Remote bilateral rib fractures. Chest X-Ray 03/12/18 20:13 CONCLUSION: No acute findings. Remote bilateral rib fractures. Discharge Plan Discharge Disposition Patient Disposition: 01 Discharge Home Discharge Condition Condition: Stable Discharge Order Discharge Orders: Discharge Order (Routine); Ordered 03/14/18 Ordered By: Jareth Kirby Discharge Details Anticipated Discharge Date: 03/14/18 Physicians Team ED Provider: Christopher Shirley Primary Care Provider: Michael Contreras Attending Provider: Ahmed,Shahabuddi Other Providers: Fatmata Moreno ; [facility],Insurance ; [facility],Agency Status ED Status: Left Department Discharge Information Discharge Date/Time: 03/13/18 04:30
--- NOTE | 2018-03-12 20:57 | XR ---
EXAM DATE: 03/12/2018 8:36 PM EDT AGE/SEX: 67 years / Female INDICATIONS: Short of breath CLINICAL DATA: This is the patient's initial encounter. Patient reports that signs and symptoms have been present for 2 months and indicates a pain score of 0/10. MEDICAL/SURGICAL HISTORY: . Lupus. Asthma. Chronic obstructive pulmonary disease. Hypoglycemia . . Tubal ligation. Left hip replacement. COMPARISON: [facility] – [place], CHEST 1V SINGLE AP, 02/13/2018. . FINDINGS: A single AP view of the chest demonstrates the lungs to be symmetrically aerated without evidence of mass, infiltrate or effusion. Calcified granulomata in the upper right lung. Remote bilateral rib fr actures. The cardiomediastinal contours are unremarkable. CONCLUSION: No acute findings. Remote bilateral rib fractures. Electronically signed by: Tiago Fletcher MD 03/12/2018 8:55 PM EDT
[2018-03-12 21:47] LABS: Hematocrit 36.3 % (35.0-46.0); Hemoglobin 11.4 gm/dL (11.6-15.3); Mean Corpuscular HGB Conc 31.4 % (32.0-36.0); Mean Corpuscular Hemoglobin 25.6 pg (27.0-34.0); Mean Corpuscular Volume 81.8 fL (80.0-100.0); Mean Platelet Volume 7.6 fL (7.0-11.0); Platelet Count 160 th/mm3 (150-450); Red Blood Count 4.44 mil/mm3 (4.00-5.30); Red Cell Distribution Width 22.8 % (11.6-17.2); White Blood Count 8.8 th/mm3 (4.0-11.0)
[2018-03-12 22:24] LABS: Eosinophils 3 % (0-4); Lymphocytes 19 % (9-44); Monocytes 5 % (0-8)
[2018-03-12 22:25] LABS: Ovalocytes 1+; Platelet Estimate Normal (Normal); Platelet Morphology Normal (Normal)
--- NOTE | 2018-03-12 22:41 | XR ---
EXAM DATE: 03/12/2018 9:59 PM EDT AGE/SEX: 67 years / Female INDICATIONS: . Short of breath. CLINICAL DATA: This is the patient's initial encounter. Patient reports that signs and symptoms have been present for 1 day and indicates a pain score of 7/10. MEDICAL/SURGICAL HISTORY: None. None. COMPARISON: [facility] – [place], CHEST 1V SINGLE AP, 03/12/2018. . FINDINGS: PA and lateral views of the chest demonstrate the lungs to be symmetrically aerated without evidence of mass, infiltrate or effusion. The cardiomediastinal contours are unremarkable. Remote bilateral ri b fractures. CONCLUSION: No active disease. Remote bilateral rib fractures. Electronically signed by: Tiago Fletcher MD 03/12/2018 10:40 PM EDT
[2018-03-12 22:51] LABS: Alanine Aminotransferase 41 U/L (10-53); Albumin 2.8 g/dL (3.4-5.0); Anion Gap 12 meq/L (5-15); Aspartate Aminotransferase 133 U/L (15-37); Blood Urea Nitrogen 10 mg/dL (7-18); Chloride 102 meq/L (98-107); Glomerular Filtration Rate Greater Than 89 mL/min (>89); Glucose,Random 63 mg/dL (74-106); Potassium 3.8 meq/L (3.5-5.1); Sodium 139 meq/L (136-145)
[2018-03-12 22:55] LABS: Alkaline Phosphatase 135 U/L (45-117); Total Protein 6.1 g/dL (6.4-8.2)
[2018-03-13] MEDS ORDERED: Acetaminophen 325 MG Tablet PO PRN (02:34)
[2018-03-13] MEDS ORDERED: Temazepam 15 MG Capsule PO PRN (02:34)
[2018-03-13] MEDS ORDERED: MethylPREDNISolone Sod Succinate Inj 125 MG/2 ML Vial IV.PUSH ONE (02:47)
--- NOTE | 2018-03-13 02:54 | P.HPIM ---
History of Present Illness Primary Care Physician: Michael Contreras MD History of Present Illness: 67-year-old female with a history of COPD on home O2, diabetes, C. difficile, lupus presented to the ED with complaints of shortness of breath and diarrhea for the last 2 days. Patient states last time she had C. difficile was back in December and she completed a course of vancomycin. She does not follow-up outpatient with infectious disease. She states for the last 2 days she has been increasing short of breath with exertion and at rest. She is on home O2 at home and states she has went from 2 L to 3 L without any relief. He denies any associated chest pain, fever or chills. She does complain of a cough with yellow sputum. Patient states she still continues to smoke but has cut back. Review of Systems All other systems reviewed negative except as stated in HPI PMFSH - History History Provided By: Patient - Medical History Medical History: Medical History (Last Updated 03/12/18 @ 19:54 by Kristina Russ) C. difficile colitis COPD (chronic obstructive pulmonary disease) Diabetes Lupus Pneumonia - Surgical History Surgical History: Surgical History (Last Reviewed 02/14/18 @ 09:11 by Steven Menard) History of total left hip replacement Hx of tubal ligation - Family History Family History: Family History (Last Updated 02/13/18 @ 13:53 by Jose Quinones MD) Other COPD (chronic obstructive pulmonary disease) - Tobacco History Second Hand Smoke Exposure: Yes Tobacco Use In Past 30 Days: Yes Smoking Status: Former smoker Tobacco Type: Cigarettes - Alcohol History How Often Do You Have a Drink Containing Alcohol: Never - Substance Use History Substance History: No History of Abuse - Travel History Recent Travel in the [place] Within the Last 8 Weeks: No Recent Travel Out of the Country Within the Last 8 Weeks: No - Immunization History Tetanus Immunization: Unsure Hx Influenza Vaccine This Season: No Medications and Allergies Active Medications: Active Medications Acetaminophen (Tylenol) 650 mg PO Q4H PRN PRN Reason: Temp > 100.4 Heparin Sodium (Porcine) (Heparin Inj) 5,000 units SQ Q8H [facility] Ondansetron HCl (Zofran Inj) 4 mg IV.PUSH Q6H PRN PRN Reason: NAUSEA OR VOMITING Temazepam (Restoril) 15 mg PO HS PRN PRN Reason: INSOMNIA Vancomycin HCl (Vancomycin Po) 125 mg PO QID [facility] Allergies Allergy/AdvReac Type Severity Reaction Status Date / Time No Known Allergies Allergy Unverified 03/12/18 19:51 Home Medications Medication Instructions Recorded Confirmed Type albuterol sulfate 1.25 mg INHALATION QID PRN 02/12/18 03/12/18 History albuterol sulfate [Ventolin HFA] 2 puff INHALATION Q4H PRN 02/12/18 03/12/18 History Exam Vital signs: Vital Signs 03/12/18 19:51 03/12/18 22:59 03/12/18 23:00 Temperature 98.6 F Pulse Rate 115 H 101 H Respiratory Rate 20 18 Blood Pressure 130/60 Pulse Oximetry 100 100 03/13/18 01:29 Temperature Pulse Rate 104 H Respiratory Rate 18 Blood Pressure 130/62 Pulse Oximetry 100 Intake & Output 03/12/18 03/12/18 03/13/18 06:59 18:59 06:59 Weight 45.813 kg Narrative: GENERAL: This is a thin, frail elder lady, who appears mildly short of breath. CARDIOVASCULAR: Tachycardic rate and rhythm without murmurs, gallops, or rubs. RESPIRATORY: Tight breath sounds, diminished throughout. No wheezes, rales, or rhonchi. GASTROINTESTINAL: Abdomen soft, non-tender, nondistended. Normal active bowel sounds MUSCULOSKELETAL: Extremities without clubbing, cyanosis, or edema. NEURO: Alert & Oriented x4 to person, place, time, situation. Moves all ext x4 Results - Labs CBC & Chem 7: 03/12/18 21:10 03/12/18 22:01 Labs: Short CBC 03/12/18 Range/Units 21:10 WBC 8.8 (4.0-11.0) th/mm3 Hgb 11.4 L (11.6-15.3) gm/dL Hct 36.3 (35.0-46.0) % Plt Count 160 D (150-450) th/mm3 BMP 03/12/18 22:01 Sodium 139 Potassium 3.8 Chloride 102 Carbon Dioxide 25.0 BUN 10 Creatinine 0.38 L Calcium 8.0 L Cardiac Enzymes 03/12/18 Range/Units 22:01 Troponin I Less than 0.02 L (0.02-0.05) ng/mL Liver Function 03/12/18 Range/Units 22:01 Total Bilirubin 0.2 (0.2-1.0) mg/dL AST 133 H (15-37) U/L ALT 41 (10-53) U/L Alkaline Phosphatase 135 H (45-117) U/L Albumin 2.8 L (3.4-5.0) g/dL - Imaging Impressions Chest X-Ray 03/12/18 00:00 CONCLUSION: No active disease. Remote bilateral rib fractures. Chest X-Ray 03/12/18 20:13 CONCLUSION: No acute findings. Remote bilateral rib fractures. Caprini VTE Risk Assessment Caprini VTE Risk Assessment: Moderate/High Risk (score >= 2) Caprini Risk Assessment Model: Point Value = 1 Point Value = 2 Point Value = 3 Point Value = 5 Age 41-60 Minor surgery BMI > 25 kg/m2 Swollen legs Varicose veins or History of unexplained or recurrent spontaneous Oral contraceptives or hormone replacement Sepsis (< 1 month) Serious lung disease, including pneumonia (< 1 month) Abnormal pulmonary function Acute myocardial infarction Congestive heart failure (< 1 month) History of inflammatory bowel disease Medical patient at bed rest Age 61-74 Arthroscopic surgery Major open surgery (> 45 min) Laparoscopic surgery (> 45 min) Malignancy Confined to bed (> 72 hours) Immobilizing plaster cast Central venous access Age >= 75 History of VTE Family history of VTE Factor V Leiden Prothrombin [id number] Lupus anticoagulant Anticardiolipin antibodies Elevated serum homocysteine Heparin-induced thrombocytopenia Other congenital or acquired thrombophilia Stroke (< 1 month) Elective arthroplasty Hip, pelvis, or leg fracture Acute spinal cord injury (< 1 month) Prophylaxis Regimen: Total Risk Factor Score Risk Level Prophylaxis Regimen 0-1 Low Early ambulation 2 Moderate Order ONE of the following: *Sequential Compression Device (SCD) *Heparin 5000 units SQ BID 3-4 Higher Order ONE of the following medications: *Heparin 5000 units SQ TID *Enoxaparin/Lovenox 40 mg SQ daily (WT < 150 kg, CrCl > 30 mL/min) *Enoxaparin/Lovenox 30 mg SQ daily (WT < 150 kg, CrCl > 10-29 mL/min) *Enoxaparin/Lovenox 30 mg SQ BID (WT < 150 kg, CrCl > 30 mL/min) AND/OR *Sequential Compression Device (SCD) 5 or more Highest Order ONE of the following medications: *Heparin 5000 units SQ TID (Preferred with Epidurals) *Enoxaparin/Lovenox 40 mg SQ daily (WT < 150 kg, CrCl > 30 mL/min) *Enoxaparin/Lovenox 30 mg SQ daily (WT < 150 kg, CrCl > 10-29 mL/min) *Enoxaparin/Lovenox 30 mg SQ BID (WT < 150 kg, CrCl > 30 mL/min) AND *Sequential Compression Device (SCD) Assessment and Plan - Plan 67-year-old female with a history of COPD on home O2, diabetes, C. difficile, lupus presented to the ED with complaints of shortness of breath and diarrhea for the last 2 days. COPD exacerbation Chest x-ray reviewed and shows remote bilateral rib fractures no infiltrates or effusions. -Duo nebs scheduled and as needed -IV steroids solumedrol 125 x 1 then 40mg q6hr -Incentive spirometer -Sputum culture -PT eval Recurrent C. difficile -Vancomycin PO 125 mg, Patient may need a longer tapering dose at discharge -Consult infectious disease for evaluation DVT prophylaxis: Heparin Discussed Condition With: Patient and RN
[2018-03-13] MEDS: Heparin - SQ 10,000 UNITS/ML Vial SQ SCH ×3 (03:53→19:02)
[2018-03-13] MEDS: MethylPREDNISolone Sod Succinate Inj 40 MG/ML Vial IV.PUSH SCH ×3 (08:35→21:15)
--- NOTE | 2018-03-13 13:25 | P.CONID ---
History of Present Illness Service: ID Consult date: 03/13/18 Requesting Physician: Lorena Nowak Reason for Consult: C.diff Primary Care Provider: Michael Contreras MD History of Present Illness: pt is a 67 yo F with advanced COPD on 2.5 24/7 NC O2 who is battling recurrent C.diff bouts since September. SHe thinks its a 5th episode She completed a course of vancomycin and in the last 2 days start to have liquid diarrhea again up to 6-7 BMs Not much abdominal pain She also developped SOB, her cough and expectoration ois a t basline, sputu is clear CXR showed no infiltrate Pt is afebrile, with normal WBC started on oral vancomycin She still smokes 4-5 sigs a day Review of Systems All other systems reviewed negative except as stated in HPI PMFSH - History History Provided By: Patient - Medical History Medical History: Medical History (Last Reviewed 03/13/18 @ 15:55 by Fatmata Moreno MD) C. difficile colitis COPD (chronic obstructive pulmonary disease) Diabetes Lupus Pneumonia - Surgical History Surgical History: Surgical History (Last Reviewed 03/13/18 @ 15:55 by Fatmata Moreno MD) History of total left hip replacement Hx of tubal ligation - Family History Family History: Family History (Last Reviewed 03/13/18 @ 15:55 by Fatmata Moreno MD) Other COPD (chronic obstructive pulmonary disease) - Social History I have reviewed the patient's Social History: Yes - Tobacco History Second Hand Smoke Exposure: Yes Tobacco Use In Past 30 Days: Yes Smoking Status: Current every day smoker Tobacco Type: Cigarettes - Alcohol History How Often Do You Have a Drink Containing Alcohol: 2 to 3 times a week - Substance Use History Substance History: No History of Abuse - Travel History Recent Travel in the [place] Within the Last 8 Weeks: No Recent Travel Out of the Country Within the Last 8 Weeks: No - Immunization History Tetanus Immunization: Unsure Hx Influenza Vaccine This Season: No Medications and Allergies Active Medications: Active Medications Acetaminophen (Tylenol) 650 mg PO Q4H PRN PRN Reason: Temp > 100.4 Albuterol (Duoneb Neb (Prn)) 1 ampul NEB Q4HR NEB PRN PRN Reason: SHORTNESS OF BREATH Albuterol (Duoneb Neb (Nikhil)) 1 ampul NEB Q4HR NEB NIKHIL Last Admin: 03/13/18 12:09 Dose: 1 ampul Heparin Sodium (Porcine) (Heparin Inj) 5,000 units SQ Q8H [facility] Last Admin: 03/13/18 11:25 Dose: 5,000 units Methylprednisolone Sodium Succinate (Solumedrol Inj) 40 mg IV.PUSH Q6H [facility] Last Admin: 03/13/18 08:35 Dose: 40 mg Ondansetron HCl (Zofran Inj) 4 mg IV.PUSH Q6H PRN PRN Reason: NAUSEA OR VOMITING Temazepam (Restoril) 15 mg PO HS PRN PRN Reason: INSOMNIA Vancomycin HCl (Vancomycin Po) 125 mg PO QID [facility] Last Admin: 03/13/18 12:31 Dose: 125 mg Allergies Allergy/AdvReac Type Severity Reaction Status Date / Time No Known Allergies Allergy Unverified 03/12/18 19:51 Home Medications Medication Instructions Recorded Confirmed Type albuterol sulfate 1.25 mg INHALATION QID PRN 02/12/18 04/19/18 History albuterol sulfate [Ventolin HFA] 2 puff INHALATION Q4H PRN 02/12/18 04/19/18 History Exam Vital signs: Vital Signs 03/12/18 19:51 03/12/18 22:59 03/12/18 23:00 Temperature 98.6 F Pulse Rate 115 H 101 H Respiratory Rate 20 18 Blood Pressure 130/60 Pulse Oximetry 100 100 03/13/18 01:29 03/13/18 02:58 03/13/18 04:00 Temperature 98.1 F Pulse Rate 104 H 103 H 89 Respiratory Rate 18 18 20 Blood Pressure 130/62 129/58 L Pulse Oximetry 100 99 03/13/18 05:16 03/13/18 08:00 03/13/18 08:12 Temperature 97.8 F Pulse Rate 99 H 90 Respiratory Rate 18 18 Blood Pressure 138/65 Pulse Oximetry 98 98 03/13/18 08:17 03/13/18 09:00 03/13/18 12:00 Temperature 98.3 F Pulse Rate 88 80 Respiratory Rate 16 Blood Pressure 129/59 L Pulse Oximetry 99 99 03/13/18 12:09 03/13/18 13:10 Temperature Pulse Rate 82 89 Respiratory Rate 18 Blood Pressure Pulse Oximetry Intake & Output 03/12/18 03/13/18 03/13/18 18:59 06:59 18:59 Intake Total 480 / 480 Balance 480 / 480 Weight 47.7 kg Intake: Oral 480 / 480 Other: # Voids 1 - Constitutional no acute distress, thin, chronically ill appearing - Routine HEENT Exam Head: Present: normocephalic, atraumatic Eye: Present: EOMI, PERRL ENT: Present: mucous membranes moist, oropharynx clear - Routine Neck Exam Present: supple, full ROM - Routine Respiratory Exam Present: decreased breath sounds, CTA bilaterally - Routine Cardiovascular Exam Present: RRR, S1, S2 Comments: no murmurs rubs gallops - Routine Abdominal Exam Present: soft Comments: not tender minimally distended no hepatomegaly or masses - Routine Extremities Exam Present: full ROM, pulses intact, normal capillary refill Comments: no cyanosis, no clubbing no edema - Routine Skin Exam Present: intact, dry, warm - Routine Neurological Exam Present: alert, oriented X3, moving all extremities, vision grossly intact, hearing grossly intact, normal speech - Routine Psychiatric Exam Present: normal affect, normal thought process, cooperative Results - Labs CBC & Chem 7: 03/14/18 06:57 03/14/18 06:57 Labs: Laboratory Results - last 24 hr 03/12/18 03/12/18 03/12/18 21:10 21:12 22:01 WBC 8.8 RBC 4.44 Hgb 11.4 L Hct 36.3 MCV 81.8 MCH 25.6 L MCHC 31.4 L RDW 22.8 H Plt Count 160 D MPV 7.6 Prelim Diff (Auto) Manual diff required WBC Differential Manual diff final Seg Neuts % (Manual) 67 Band Neuts % (Manual) 6 Lymphocytes % (Manual) 19 Monocytes % (Manual) 5 Eosinophils % (Manual) 3 Abs Neuts (Manual) 6.4 Differential Comment . Platelet Estimate Normal Platelet Morphology Normal Ovalocytes 1+ H Sodium 139 Potassium 3.8 Chloride 102 Carbon Dioxide 25.0 Anion Gap 12 BUN 10 Creatinine 0.38 L Estimated GFR Greater than 89 POC Glucose Random Glucose 63 L Calcium 8.0 L Total Bilirubin 0.2 AST 133 H ALT 41 Alkaline Phosphatase 135 H Troponin I Less than 0.02 L Total Protein 6.1 L Albumin 2.8 L Stl C.difficile Tox PCR Positive H St C. diff Tox Epid 027 Negative 03/13/18 03/13/18 03/13/18 05:23 05:43 06:01 WBC RBC Hgb Hct MCV MCH MCHC RDW Plt Count MPV Prelim Diff (Auto) WBC Differential Seg Neuts % (Manual) Band Neuts % (Manual) Lymphocytes % (Manual) Monocytes % (Manual) Eosinophils % (Manual) Abs Neuts (Manual) Differential Comment Platelet Estimate Platelet Morphology Ovalocytes Sodium Potassium Chloride Carbon Dioxide Anion Gap BUN Creatinine Estimated GFR POC Glucose 66 L 145 H Random Glucose 87 Calcium Total Bilirubin AST ALT Alkaline Phosphatase Troponin I Total Protein Albumin Stl C.difficile Tox PCR St C. diff Tox Epid 027 03/13/18 03/13/18 08:24 12:27 WBC RBC Hgb Hct MCV MCH MCHC RDW Plt Count MPV Prelim Diff (Auto) WBC Differential Seg Neuts % (Manual) Band Neuts % (Manual) Lymphocytes % (Manual) Monocytes % (Manual) Eosinophils % (Manual) Abs Neuts (Manual) Differential Comment Platelet Estimate Platelet Morphology Ovalocytes Sodium Potassium Chloride Carbon Dioxide Anion Gap BUN Creatinine Estimated GFR POC Glucose 142 H 205 H Random Glucose Calcium Total Bilirubin AST ALT Alkaline Phosphatase Troponin I Total Protein Albumin Stl C.difficile Tox PCR St C. diff Tox Epid 027 - Imaging Impressions Chest X-Ray 03/12/18 00:00 CONCLUSION: No active disease. Remote bilateral rib fractures. Chest X-Ray 03/12/18 20:13 CONCLUSION: No acute findings. Remote bilateral rib fractures. Assessment and Plan - Plan C.diff recurent episode COPD exacerbation Doubt PNA ( no fever, clear sputum and negative CXR) cont vancomycin 500 mg qid followed by taper after 2 weeks add IV flagyl will consider CT abd/pel if no promp t response to eval the extent of colo involment After treatment completed I think pt will benefit from referral to GI for stool iona transplant avoid abx if possible Tobacco cessation
[2018-03-13] MEDS ORDERED: Dextrose 50% in Water 50 ML Vial IV.PUSH PRN (13:49)
[2018-03-13] MEDS: Insulin NovoLOG Aspart Correctional Sugar Inj SQ SCH ×2 (18:41→21:40)
[2018-03-14] MEDS: Heparin - SQ 10,000 UNITS/ML Vial SQ SCH ×2 (02:07→11:46)
[2018-03-14] MEDS: MethylPREDNISolone Sod Succinate Inj 40 MG/ML Vial IV.PUSH SCH ×2 (03:56→08:31)
[2018-03-14 07:44] LABS: Hematocrit 30.8 % (35.0-46.0); Hemoglobin 9.7 gm/dL (11.6-15.3); Mean Corpuscular HGB Conc 31.6 % (32.0-36.0); Mean Corpuscular Hemoglobin 25.7 pg (27.0-34.0); Mean Corpuscular Volume 81.3 fL (80.0-100.0); Platelet Count 143 th/mm3 (150-450); Red Blood Count 3.79 mil/mm3 (4.00-5.30); Red Cell Distribution Width 22.3 % (11.6-17.2); White Blood Count 4.2 th/mm3 (4.0-11.0)
[2018-03-14 08:05] LABS: Anion Gap 8 meq/L (5-15); Blood Urea Nitrogen 8 mg/dL (7-18); Calcium 8.9 mg/dL (8.5-10.1); Carbon Dioxide 29.9 meq/L (21.0-32.0); Chloride 97 meq/L (98-107); Glomerular Filtration Rate Greater Than 89 mL/min (>89); Glucose,Random 139 mg/dL (74-106); Potassium 4.1 meq/L (3.5-5.1); Sodium 135 meq/L (136-145)
[2018-03-14] MEDS: Insulin NovoLOG Aspart Correctional Sugar Inj SQ SCH (08:33)
[2018-03-14 08:54] LABS: Lymphocytes 2 % (9-44)
[2018-03-14 08:55] LABS: Monocytes 7 % (0-8); Ovalocytes 1+
[2018-03-14 08:57] LABS: Platelet Morphology Normal (Normal)
[2018-03-14] MEDS ORDERED: predniSONE 20 MG Tablet PO SCH (10:00)
--- NOTE | 2018-03-14 10:06 | P.PNIM ---
Subjective Interval history: Patient is feeling "100%" better today. She reports her breathing is back to baseline. She at her baseline O2 requirement of 2.5 L with O2 saturation 100%. Coughing has improved as well. Stools are more formed. She is hoping to be discharged today. She is hoping to go to [facility] for rehab if possible, but if not able to go there, she feels comfortable going home with her . Continues to smoke 3 cigarettes daily. The patient reports she has inhalers and nebulizers already. Physical Exam Vital signs: Vital Signs 03/13/18 12:00 03/13/18 12:09 03/13/18 13:10 Temperature 98.3 F Pulse Rate 80 82 89 Respiratory Rate 16 18 Blood Pressure 129/59 L Pulse Oximetry 99 03/13/18 15:39 03/13/18 15:46 03/13/18 19:05 Temperature 98.4 F 98.5 F Pulse Rate 84 84 87 Respiratory Rate 16 16 18 Blood Pressure 128/57 L 141/63 H Pulse Oximetry 99 100 03/13/18 19:54 03/13/18 20:10 03/14/18 00:00 Temperature 98.1 F Pulse Rate 85 58 L Respiratory Rate 17 18 Blood Pressure 115/56 L Pulse Oximetry 97 94 L 100 03/14/18 03:41 03/14/18 04:00 03/14/18 08:00 Temperature 98.3 F 97.8 F Pulse Rate 79 68 80 Respiratory Rate 16 16 Blood Pressure 110/56 L 101/53 L Pulse Oximetry 100 100 03/14/18 08:38 Temperature Pulse Rate 89 Respiratory Rate 16 Blood Pressure Pulse Oximetry 100 Intake & Output 03/13/18 03/14/18 03/14/18 18:59 06:59 18:59 Intake Total 100 / 100 100 / 100 Balance 100 / 100 100 / 100 Intake: IV 100 / 100 100 / 100 Flagyl 500 MG Inj 100 ML @ 100 100 / 100 100 / 100 mls/hr IV.SIG Q8H [facility] Rx#: [id number] Other: # Voids 4 Narrative: GENERAL: Well-developed fair-nourished. In no acute distress. SKIN: Warm and dry. No lesions noted. HEENT: Normocephalic. Pupils equal and round. Mucous membranes pink and moist. CARDIOVASCULAR: Regular rate and rhythm. No murmur appreciated. RESPIRATORY: No accessory muscle use. Clear to auscultation. Breath sounds equal bilaterally. GASTROINTESTINAL: Abdomen soft, non-tender, nondistended. Bowel sounds x4. MUSCULOSKELETAL: No obvious deformities. No clubbing or cyanosis. No edema. NEUROLOGICAL: Awake and alert. Moves upper and lower extremities spontaneously. Normal speech. PSYCHIATRIC: Appropriate mood and affect; insight and judgment normal. Results - Labs CBC & Chem 7: 03/14/18 06:57 03/14/18 06:57 Laboratory Results - last 24 hr 03/13/18 03/13/18 03/13/18 12:27 17:56 21:19 WBC RBC Hgb Hct MCV MCH MCHC RDW Plt Count MPV Prelim Diff (Auto) WBC Differential Seg Neuts % (Manual) Band Neuts % (Manual) Lymphocytes % (Manual) Monocytes % (Manual) Abs Neuts (Manual) Differential Comment Platelet Estimate Platelet Morphology Ovalocytes Sodium Potassium Chloride Carbon Dioxide Anion Gap BUN Creatinine Estimated GFR POC Glucose 205 H 262 H 224 H Random Glucose Calcium 03/14/18 03/14/18 03/14/18 06:57 06:57 08:33 WBC 4.2 RBC 3.79 L Hgb 9.7 L Hct 30.8 L MCV 81.3 MCH 25.7 L MCHC 31.6 L RDW 22.3 H Plt Count 143 L MPV 8.0 Prelim Diff (Auto) Manual diff required WBC Differential Manual diff final Seg Neuts % (Manual) 89 H Band Neuts % (Manual) 2 Lymphocytes % (Manual) 2 L Monocytes % (Manual) 7 Abs Neuts (Manual) 3.8 Differential Comment . Platelet Estimate Low L Platelet Morphology Normal Ovalocytes 1+ H Sodium 135 L Potassium 4.1 Chloride 97 L Carbon Dioxide 29.9 Anion Gap 8 BUN 8 Creatinine 0.25 L Estimated GFR Greater than 89 POC Glucose 151 H Random Glucose 139 H Calcium 8.9 D Microbiology 03/13/18 04:00 Sputum - Expectorated Sputum Gram Stain - Final - Imaging Impressions Chest X-Ray 03/12/18 00:00 CONCLUSION: No active disease. Remote bilateral rib fractures. Chest X-Ray 03/12/18 20:13 CONCLUSION: No acute findings. Remote bilateral rib fractures. Assessment and Plan - Plan 67-year-old female with a history of COPD on home O2, diabetes, C. difficile, lupus presented to the ED with complaints of shortness of breath and diarrhea for the last 2 days. COPD exacerbation Chest x-ray shows remote bilateral rib fractures no infiltrates or effusions. -Symptoms much improved, will change IV steroids to oral taper dose -Duo nebs scheduled and as needed -Continue supplemental O2 -Incentive spirometer -Sputum culture pending -Strongly recommend the patient stop smoking Recurrent C. difficile -ID consulted, recommends continuing vancomycin PO 4 times daily for 2 weeks and then begin tapering dose -Patient seen by GI on previous admission, instructed to follow-up with them as outpatient after discharge DVT prophylaxis: Heparin Discharge planning: Patient with recent hospitalization last month. PT recommends SNF, will consult case management to arrange. Hopefully discharge planning to SNF today. Discussed Condition With: Patient, family day care provider Planning: Discharge today on oral vancomycin and steroid taper
[2018-03-17 18:02] VITALS: PULSE 77
[2018-03-17 18:03] VITALS: BP 147/62; TEMP 98.4
[2018-03-17 18:17] VITALS: RESP 16
[2018-03-17 18:32] VITALS: O2SAT 98
== END 2018-03-14 13:08 ==
LOC: NEPE 19:42 → NEDA 19:42 → NEPFCDU 19:42
PROVIDERS: ADMIT Hospitalist; ATTEND Hospitalist

== ENCOUNTER 2018-04-19 14:53 | Inpatient (IN) ==
[2018-04-19] MEDS ORDERED: Morphine Inj 4 MG/ML Vial IV.PUSH ONE (16:41)
[2018-04-19] MEDS ORDERED: Sod Chloride 0.9% Inj 1,000 ML IV.SIG ONE ×2 (16:41→18:55)
[2018-04-19] MEDS ORDERED: MethylPREDNISolone Sod Succinate Inj 125 MG/2 ML Vial IV.PUSH ONE (16:43)
--- NOTE | 2018-04-19 16:45 | ED ---
HPI General Chief Complaint: Abdominal Pain Stated Complaint: SOB, Abd pain Time Seen by Provider: 04/19/18 16:28 Source: patient and RN notes reviewed Mode of arrival: wheelchair Limitations: no limitations History of Present Illness HPI narrative: 67-year-old female presents to the emergency department for evaluation of diffuse abdominal pain, abdominal distention, shortness of breath. Patient states her abdominal pain started on Friday, 2 days ago. She states her shortness of breath started yesterday. She does have history of COPD , alcohol abuse. She states that she drank all night Alber night to "help with the pain". She also admits to drinking alcohol today. Patient denies any fevers. She reports episodes of vomiting. She denies any diarrhea or constipation. She reports history tubal ligation, but no other abdominal surgeries. Moderate severity. MD complaint: abdominal pain Onset (ago): day(s) (2) Pain Consistency: constant Location: diffuse Severity: moderate Severity scale (1-10): 10 Quality: aching and sharp Radiation: none Relieving factors: nothing Exacerbating factors: nothing Associated symptoms: nausea, vomiting and other (SOB) Related Data Home Medications Medication Instructions Recorded Confirmed albuterol sulfate 1.25 mg INHALATION QID PRN 02/12/18 04/19/18 albuterol sulfate [Ventolin HFA] 2 puff INHALATION Q4H PRN 02/12/18 04/19/18 Previous Rx's Medication Instructions Recorded prednisone 20 mg PO BID #11 tab 03/14/18 Allergies Allergy/AdvReac Type Severity Reaction Status Date / Time No Known Allergies Allergy Unverified 03/12/18 19:51 PMFSH Social History Social History Substance History: No History of Abuse Second Hand Smoke Exposure: Yes Smoking Status: Heavy tobacco smoker Tobacco Type: Cigarettes How Often Do You Have a Drink Containing Alcohol: 4 or more times a week Recent Travel in [facility] within the Last 8 Weeks: No Recent Out of Country Travel within the Last 8 Weeks: No Immunization History Tetanus Immunization: Unsure Hx Influenza Vaccine This Season: No Exam Narrative Exam Narrative: GENERAL: Well-nourished, well-developed female patient, afebrile. Patient in moderate distress SKIN: Focused skin assessment warm/dry. HEAD: Normocephalic. Atraumatic EYES: No scleral icterus. No injection or drainage. NECK: Supple, trachea midline. No JVD or lymphadenopathy. CARDIOVASCULAR: Regular rhythm without murmurs, gallops, or rubs. Patient is tachycardic heart rate in the 120s on my exam. RESPIRATORY: Breath sounds equal bilaterally. Positive accessory muscle use. Patient has cough noted. Lung sounds with expiratory wheezes throughout. GASTROINTESTINAL: Abdomen distended with diffuse tenderness to palpation MUSCULOSKELETAL: No cyanosis, or edema. BACK: Nontender without obvious deformity. No CVA tenderness. Course Initial Documented Vital Signs Temperature 97.4 F L 04/19/18 15:00 Pulse Rate 138 H 04/19/18 15:00 Respiratory Rate 28 H 04/19/18 15:00 Blood Pressure 103/97 H 04/19/18 15:00 Pulse Oximetry 97 04/19/18 15:00 Last Documented Vital Signs Temperature 97.4 F L 04/19/18 15:00 Pulse Rate 110 H 04/19/18 18:00 Respiratory Rate 20 04/19/18 18:00 Blood Pressure 128/67 04/19/18 18:00 Pulse Oximetry 97 04/19/18 18:00 Medical Decision Making [facility] Narrative Medical decision making narrative: 67-year-old female presents to the emergency department for severe abdominal pain that started on Friday as well as shortness of breath started yesterday. Patient is in moderate distress on my exam. She is tachycardic and short of breath. Her abdomen is distended. She does have history of alcohol abuse. IV access obtained. EKG shows sinus tachycardia, 131. CBC, CMP, lipase, magnesium, CK, troponin, ammonia level, lactic acid, PTT, PT/INR, alcohol level, UA ordered and pending. Chest x-ray is ordered and pending. CTA pulmonary and CT abdomen/pelvis with IV contrast ordered and pending. Patient is given DuoNeb 3, Solu-Medrol 125 mg IV, S1 normal saline 1 L IV bolus, morphine 4 mg IV, Zofran 4 mg IV. CBC shows no acute abnormality. CMP shows slight hyperkalemia 5.2, bicarb of 17.3, anion gap of 18, BUN 39, creatinine 1.48. Magnesium is 1.7. Lipase is 978. CK is 88. Troponin is less than 0.02. Lactic acid is 2.5. Ammonia level is 15. PTT is 29.7. PT/INR is 10.9/1.1. Alcohol level is less than 3. UA is pending. Chest x-ray is negative. Radiologist called me to notify me that there is a large amount of free fluid and free air around the liver. I discussed with my attending physician, Dr. Purcell. He examined patient. Blood cultures 2 are ordered and pending. Patient is given Zosyn 3.375 g IV, Levaquin 750 mg IV. Second liter normal saline 1 L IV bolus is given. General surgeon, Dr. Kelley, was notified who states he will take the patient for emergent surgery. The patient was admitted to watchmaker apprentice, Dr. Vasquez. CT pulmonary angiogram is negative for PE. Medical Screen Exam Complete: Yes Emergency Medical Condition: Yes Differential Diagnosis Differential Diagnosis: Liver cirrhosis versus ascites versus pancreatitis versus UTI versus bowel obstruction versus COPD exacerbation versus ACS versus pneumonia versus PE Medical Records Medical records reviewed: Yes I reviewed the patient's medical records. Lab Data Result diagrams: 04/19/18 16:50 04/19/18 16:50 Lab Results 04/19/18 04/19/18 04/19/18 Range/Units 16:50 16:50 16:50 WBC 10.3 (4.0-11.0) th/mm3 RBC 4.80 (4.00-5.30) mil/mm3 Hgb 12.1 (11.6-15.3) gm/dL Hct 40.4 (35.0-46.0) % MCV 84.2 (80.0-100.0) fL MCH 25.2 L (27.0-34.0) pg MCHC 30.0 L (32.0-36.0) % RDW 20.7 H (11.6-17.2) % Plt Count 287 (150-450) th/mm3 MPV 8.1 (7.0-11.0) fL Neut % (Auto) 86.2 H (16.0-70.0) % Lymph % (Auto) 9.7 (9.0-44.0) % [place] % (Auto) 4.0 (0.0-8.0) % Eos % (Auto) 0.0 (0.0-4.0) % Baso % (Auto) 0.1 (0.0-2.0) % Neut # (Auto) 8.9 H (1.8-7.7) th/mm3 Lymph # (Auto) 1.0 (1.0-4.8) th/mm3 [place] # (Auto) 0.4 (0.0-0.9) th/mm3 Eos # (Auto) 0.0 (0.0-0.4) th/mm3 Baso # (Auto) 0.0 (0.0-0.2) th/mm3 WBC Differential . Differential Comment Auto diff final PT 10.9 (9.8-11.6) sec INR 1.1 Ratio APTT 29.7 (24.3-30.1) sec Sodium 136 (136-145) meq/L Potassium 5.2 H (3.5-5.1) meq/L Chloride 101 (98-107) meq/L Carbon Dioxide 17.3 L (21.0-32.0) meq/L Anion Gap 18 H (5-15) meq/L BUN 39 H (7-18) mg/dL Creatinine 1.48 H (0.50-1.00) mg/dL Estimated GFR 35 L (>89) mL/min Random Glucose 87 (74-106) mg/dL Lactic Acid (0.4-2.0) mmol/L Calcium 9.3 (8.5-10.1) mg/dL Magnesium (1.5-2.5) mg/dL Total Bilirubin 0.4 (0.2-1.0) mg/dL AST 41 H (15-37) U/L ALT 14 (10-53) U/L Alkaline Phosphatase 57 (45-117) U/L Ammonia (11-32) mcmol/L Total Creatine Kinase 88 (26-192) U/L Troponin I Less than 0.02 L (0.02-0.05) ng/mL Total Protein 7.3 (6.4-8.2) g/dL Albumin 3.0 L (3.4-5.0) g/dL Lipase 978 H (73-393) U/L Serum Alcohol (0-5) mg/dL 04/19/18 04/19/18 04/19/18 Range/Units 16:50 16:50 16:50 WBC (4.0-11.0) th/mm3 RBC (4.00-5.30) mil/mm3 Hgb (11.6-15.3) gm/dL Hct (35.0-46.0) % MCV (80.0-100.0) fL MCH (27.0-34.0) pg MCHC (32.0-36.0) % RDW (11.6-17.2) % Plt Count (150-450) th/mm3 MPV (7.0-11.0) fL Neut % (Auto) (16.0-70.0) % Lymph % (Auto) (9.0-44.0) % [place] % (Auto) (0.0-8.0) % Eos % (Auto) (0.0-4.0) % Baso % (Auto) (0.0-2.0) % Neut # (Auto) (1.8-7.7) th/mm3 Lymph # (Auto) (1.0-4.8) th/mm3 [place] # (Auto) (0.0-0.9) th/mm3 Eos # (Auto) (0.0-0.4) th/mm3 Baso # (Auto) (0.0-0.2) th/mm3 WBC Differential Differential Comment PT (9.8-11.6) sec INR Ratio APTT (24.3-30.1) sec Sodium (136-145) meq/L Potassium (3.5-5.1) meq/L Chloride (98-107) meq/L Carbon Dioxide (21.0-32.0) meq/L Anion Gap (5-15) meq/L BUN (7-18) mg/dL Creatinine (0.50-1.00) mg/dL Estimated GFR (>89) mL/min Random Glucose (74-106) mg/dL Lactic Acid 2.5 H (0.4-2.0) mmol/L Calcium (8.5-10.1) mg/dL Magnesium 1.7 (1.5-2.5) mg/dL Total Bilirubin (0.2-1.0) mg/dL AST (15-37) U/L ALT (10-53) U/L Alkaline Phosphatase (45-117) U/L Ammonia 15 (11-32) mcmol/L Total Creatine Kinase (26-192) U/L Troponin I (0.02-0.05) ng/mL Total Protein (6.4-8.2) g/dL Albumin (3.4-5.0) g/dL Lipase (73-393) U/L Serum Alcohol (0-5) mg/dL 04/19/18 Range/Units 16:50 WBC (4.0-11.0) th/mm3 RBC (4.00-5.30) mil/mm3 Hgb (11.6-15.3) gm/dL Hct (35.0-46.0) % MCV (80.0-100.0) fL MCH (27.0-34.0) pg MCHC (32.0-36.0) % RDW (11.6-17.2) % Plt Count (150-450) th/mm3 MPV (7.0-11.0) fL Neut % (Auto) (16.0-70.0) % Lymph % (Auto) (9.0-44.0) % [place] % (Auto) (0.0-8.0) % Eos % (Auto) (0.0-4.0) % Baso % (Auto) (0.0-2.0) % Neut # (Auto) (1.8-7.7) th/mm3 Lymph # (Auto) (1.0-4.8) th/mm3 [place] # (Auto) (0.0-0.9) th/mm3 Eos # (Auto) (0.0-0.4) th/mm3 Baso # (Auto) (0.0-0.2) th/mm3 WBC Differential Differential Comment PT (9.8-11.6) sec INR Ratio APTT (24.3-30.1) sec Sodium (136-145) meq/L Potassium (3.5-5.1) meq/L Chloride (98-107) meq/L Carbon Dioxide (21.0-32.0) meq/L Anion Gap (5-15) meq/L BUN (7-18) mg/dL Creatinine (0.50-1.00) mg/dL Estimated GFR (>89) mL/min Random Glucose (74-106) mg/dL Lactic Acid (0.4-2.0) mmol/L Calcium (8.5-10.1) mg/dL Magnesium (1.5-2.5) mg/dL Total Bilirubin (0.2-1.0) mg/dL AST (15-37) U/L ALT (10-53) U/L Alkaline Phosphatase (45-117) U/L Ammonia (11-32) mcmol/L Total Creatine Kinase (26-192) U/L Troponin I (0.02-0.05) ng/mL Total Protein (6.4-8.2) g/dL Albumin (3.4-5.0) g/dL Lipase (73-393) U/L Serum Alcohol Less than 3 (0-5) mg/dL Imaging Data Radiologist's impression: Abdomen/Pelvis CT 04/19/18 16:41 CONCLUSION: 1. Free fluid or free air throughout the abdomen. I don't see an obvious etiology for it. There is no evidence of peptic ulcer disease or definite colonic wall thickening or other than some slightly narrowed loops of transverse colon in the midline. I do not see a normal or abnormal appendix 2. Gallbladder is distended. No stone or wall thickening is identified. Chest CTA 04/19/18 16:41 CONCLUSION: 1. No evidence of deep venous thrombosis. 2. Ascites in the upper abdomen and multiple small collections of free air. 3. The esophagus is prominent with air and fluid. These findings were called to [facility] the emergency room at 1852 hours. Chest X-Ray 04/19/18 16:41 CONCLUSION: Negative examination. Discharge Plan Discharge Disposition Patient Disposition: 30 Still Patient Discharge Details Diagnosis: Intra-abdominal free air of unknown etiology, Pancreatitis, Asthma exacerbation in COPD Physicians Team ED Provider: Eleno Purcell ED Midlevel Provider: Willow Bermudez Primary Care Provider: Michael Contreras Attending Provider: Claire Vasquez Other Providers: Tiago Kelley ; [facility],Insurance Status ED Status: Admitted Patient
--- NOTE | 2018-04-19 17:01 | XR ---
EXAM DATE: 04/19/2018 4:59 PM EDT AGE/SEX: 67 years / Female INDICATIONS: Short of breath CLINICAL DATA: This is the patient's initial encounter. Patient reports that signs and symptoms have been present for 1 day and indicates a pain score of 0/10. MEDICAL/SURGICAL HISTORY: None. None. COMPARISON: [facility] – [place] 2V PA&LAT, 03/12/2018. . FINDINGS: A single AP view of the chest demonstrates the lungs to be symmetrically aerated without evidence of mass, infiltrate or effusion. The cardiomediastinal contours are unremarkable. Osseous structures a re intact. CONCLUSION: Negative examination. Electronically signed by: Reece Regan MD 04/19/2018 5:00 PM EDT
[2018-04-19 17:18] LABS: Baso % (Auto) 0.1 % (0.0-2.0); Hematocrit 40.4 % (35.0-46.0); Hemoglobin 12.1 gm/dL (11.6-15.3); Lymph % (Auto) 9.7 % (9.0-44.0); Mean Corpuscular Hemoglobin 25.2 pg (27.0-34.0); Mean Corpuscular Volume 84.2 fL (80.0-100.0); Mean Platelet Volume 8.1 fL (7.0-11.0); Mono # (Auto) 0.4 th/mm3 (0.0-0.9); Neut # (Auto) 8.9 th/mm3 (1.8-7.7); Neut % (Auto) 86.2 % (16.0-70.0); Platelet Count 287 th/mm3 (150-450); Red Cell Distribution Width 20.7 % (11.6-17.2); White Blood Count 10.3 th/mm3 (4.0-11.0)
[2018-04-19 17:27] LABS: Activated Partial Thrombo Time 29.7 sec (24.3-30.1); INR 1.1 Ratio; Prothrombin Time 10.9 sec (9.8-11.6)
[2018-04-19 17:43] LABS: Alanine Aminotransferase 14 U/L (10-53); Alkaline Phosphatase 57 U/L (45-117); Anion Gap 18 meq/L (5-15); Aspartate Aminotransferase 41 U/L (15-37); Blood Urea Nitrogen 39 mg/dL (7-18); Calcium 9.3 mg/dL (8.5-10.1); Carbon Dioxide 17.3 meq/L (21.0-32.0); Chloride 101 meq/L (98-107); Glomerular Filtration Rate 35 mL/min (>89); Glucose,Random 87 mg/dL (74-106); Lipase 978 U/L (73-393); Sodium 136 meq/L (136-145); Total Protein 7.3 g/dL (6.4-8.2)
[2018-04-19 17:47] LABS: Creatine Kinase 88 U/L (26-192); Potassium 5.2 meq/L (3.5-5.1)
--- NOTE | 2018-04-19 18:46 | CT ---
EXAM DATE: 04/19/2018 6:37 PM EDT AGE/SEX: 67 years / Female INDICATIONS: Diffuse abdominal pain. CLINICAL DATA: This is the patient's initial encounter. Patient reports that signs and symptoms have been present for 1 day and indicates a pain score of 5/10. MEDICAL/SURGICAL HISTORY: Chronic obstructive pulmonary disease. Diabetes. Lupus. pneumina None. ORAL CONTRAST: No oral contrast ingested. RADIATION DOSE: 7.18 CTDI (mGy) [place] [facility] [place]18[place]. . TECHNIQUE: Multiple contiguous axial images were obtained through the abdomen and pelvis following b olus infusion of 70 ml Omnipaque 350 (iohexol) nonionic water-soluble contrast as a cumulative dose for multiple exams. No oral contrast ingested. Using automated exposure control and adjustment of t he mA and/or kV according to patient size, radiation dose was kept as low as reasonably achievable to obtain optimal diagnostic quality images. DICOM format image data is available electronically for r eview and comparison. FINDINGS: Lower Lungs: Small right-sided pleural effusion. Liver: There is significant fluid around the liver. There is free air around the liver. The liver izquierdo s have a fatty lower density. Gallbladder is well distended without wall thickening or stones. Spleen: Homogeneous density without enlargement. Pancreas: Unremarkable without mass or calcification. Kidneys: Normal in size and shape. No evidence of mass or hydronephrosis. Adrenal Glands: Unremarkable. Aorta: The aorta and proximal iliac vessels are grossly unremarkable without aneurysmal dilation. Bowel/Mesentery: There again is fluid scattered throughout the mesentery including some clearly locu les of free air both in the left upper quadrant and the right upper quadrant. There are some narrowed areas of transverse colon but also any definite colonic abscess or anything to suggest obstruction Abdominal Wall: Intact. Retroperitoneum: No evidence of adenopathy in the retrocrural, para-aortic, or deep pelvic regions. Bladder: Contours are smooth. Reproductive Organs: No abnormal masses or calcifications seen. Inguinal: The inguinal region is unremarkable without evidence of adenopathy. Bony Structures: Unremarkable. CONCLUSION: 1. Free fluid or free air throughout the abdomen. I don't see an obvious etiology for it. There is n o evidence of peptic ulcer disease or definite colonic wall thickening or other than some slightly na rrowed loops of transverse colon in the midline. I do not see a normal or abnormal appendix 2. Gallbladder is distended. No stone or wall thickening is identified. Electronically signed by: Reece Regan MD 04/19/2018 6:45 PM EDT
[2018-04-19] MEDS ORDERED: Piperacil/Tazo 3.375 GM Premix 50 ML IV.SIG ONE (18:55)
[2018-04-19] MEDS ORDERED: Vancomycin Inj 1,000 MG in Sodium Chlor 0.9% Inj 250 ML IV.SIG ONE (18:55)
--- NOTE | 2018-04-19 18:55 | CT ---
EXAM DATE: 04/19/2018 6:48 PM EDT AGE/SEX: 67 years / Female INDICATIONS: Short of breath. CLINICAL DATA: This is the patient's initial encounter. Patient reports that signs and symptoms have been present for 1 day and indicates a pain score of 0/10. MEDICAL/SURGICAL HISTORY: Chronic obstructive pulmonary disease. Diabetes. Lupus. pneumonia Non e. RADIATION DOSE: 13.11 CTDI (mGy) COMPARISON: [facility], CHEST 1V SINGLE AP, 04/19/2018. . TECHNIQUE: Volumetric scanning was performed using a multi-row detector CT scanner during bolus infu freida of 70 ml Omnipaque 350 (iohexol) nonionic water-soluble contrast as a cumulative dose for multi ple exams. The data was post processed with a variety of visualization algorithms including full volu me maximum intensity projection and sliding thin slab reformation. Using automated exposure control a nd adjustment of the mA and/or kV according to patient size, radiation dose was kept as low as reason ably achievable to obtain optimal diagnostic quality images. DICOM format image data is available el ectronically for review and comparison. FINDINGS: Pulmonary Arteries: No filling defects are seen in the pulmonary arteries out to the subsegmental ve ssels. The left and right pulmonary arteries are normal in diameter. Lung: No infiltrates seen. There is underlying emphysema. Effusion: None. Mediastinum: No evidence of mediastinal or hilar adenopathy. Esophagus is mildly prominent with air collections and fluid. Other: The axilla is unremarkable. Ascites is present in the upper abdomen surrounding the liver mar gin. There are several collections of gas within the ascitic consistent with free air. CONCLUSION: 1. No evidence of deep venous thrombosis. 2. Ascites in the upper abdomen and multiple small collections of free air. 3. The esophagus is prominent with air and fluid. These findings were called to [facility] the emergency room at 1852 hours. Electronically signed by: Kolby Love MD 04/19/2018 6:54 PM EDT
[2018-04-19] MEDS ORDERED: Bupivacaine/Epinephrine 0.5% Inj 50 ML Vial ONE (20:10)
--- NOTE | 2018-04-19 20:25 | P.HPCC ---
History of Present Illness Service: Critical care medicine Primary Care Physician: Michael Contreras MD Chief Complaint: Abdominal pain History of Present Illness: 67-year-old female with past medical history of COPD on 2.5-3 L O2 with ongoing tobacco abuse, diabetes who presented to [facility] emergency department with 2 day history of abdominal pain and distension. She states that the pain started on Tuesday 04/17 and she drank alcohol most of the day in order to ease the pain. She also took Goody powder. She has been nauseated and had several episodes of vomiting without hematemesis. Has been having normal formed stools. Denies fever. She has also been SOB, no cough. She presented with tachycardia 120-130s, normotensive. CT showed intra- abdominal free air and free fluid. Dr. Kelley has evaluated and will be taking for exp lap. Se received vanc and zosyn in the ED. Evaluated again postoperatively. Perforated duodenal ulcer was identified. She has undergone laparoscopic repair with Michel patch. There was significant intra -abdominal contamination with abscess evacuation, irrigation, and EARNESTINE placement. She received 1300 crystalloid, EBL 10, UOP 275. She was extubated postoperatively to OR. Heart rate down to 101, normotensive. NGT has been inserted and placed to LIWS with small bilious output. - Diagnosis (1) Abdominal pain (2) Duodenal ulcer with perforation (3) ETOH abuse (4) Postoperative pain (5) Chronic respiratory failure with hypoxia, on home O2 therapy (6) COPD (chronic obstructive pulmonary disease) (7) Tobacco abuse (8) BLAS (acute kidney injury) (9) Hyperkalemia (10) Elevated lipase (11) Chronic steroid use (12) Peptic ulcer (13) Free intraperitoneal air Inpatient Certification: I certify that the inpatient services were ordered in accordance with Medicare regulations governing the order. This includes certification that hospital inpatient services are reasonable and necessary and in the case of services not specified as inpatient-only under 42 CFR 419.22(n), that they are appropriately provided as inpatient services in accordance to with the 2-midnight benchmark under 43 CFR 412.3(e) Review of Systems All other systems reviewed negative except as stated in HPI PMFSH - History History Provided By: Patient, Family Member - Medical History Medical History: Medical History (Last Reviewed 04/19/18 @ 20:24 by Claire Vasquez MD) C. difficile colitis COPD (chronic obstructive pulmonary disease) Diabetes Lupus Pneumonia - Surgical History Surgical History: Surgical History (Last Reviewed 04/19/18 @ 20:24 by Claire Vasquez MD) History of total left hip replacement Hx of tubal ligation - Family History Family History: Family History (Last Reviewed 04/19/18 @ 22:13 by Claire Vasquez MD) Other COPD (chronic obstructive pulmonary disease) - Tobacco History Second Hand Smoke Exposure: Yes Tobacco Use In Past 30 Days: Yes Smoking Status: Heavy tobacco smoker Tobacco Type: Cigarettes - Alcohol History How Often Do You Have a Drink Containing Alcohol: 4 or more times a week - Substance Use History Substance History: No History of Abuse - Travel History Recent Travel in the [place] Within the Last 8 Weeks: No Recent Travel Out of the Country Within the Last 8 Weeks: No - Immunization History Tetanus Immunization: Unsure Hx Influenza Vaccine This Season: No Medications and Allergies Active Medications: Active Medications Levofloxacin/Dextrose (Levaquin 750 Mg Premix Inj) 150 mls @ 100 mls/hr IV.SIG ONCE ONE Stop: 04/19/18 20:26 Last Admin: 04/19/18 19:59 Dose: 100 mls/hr Sodium Chloride (Ns Flush) 2 ml IV.FLUSH PRN PRN PRN Reason: FLUSH AFTER USING IV ACCESS Last Admin: 04/19/18 16:56 Dose: 2 ml Allergies Allergy/AdvReac Type Severity Reaction Status Date / Time No Known Allergies Allergy Unverified 03/12/18 19:51 Home Medications Medication Instructions Recorded Confirmed Type albuterol sulfate 1.25 mg INHALATION QID PRN 02/12/18 04/19/18 History albuterol sulfate [Ventolin HFA] 2 puff INHALATION Q4H PRN 02/12/18 04/19/18 History Results - Labs CBC & Chem 7: 05/02/18 04:18 05/04/18 09:25 Labs: Short CBC 04/19/18 Range/Units 16:50 WBC 10.3 (4.0-11.0) th/mm3 Hgb 12.1 (11.6-15.3) gm/dL Hct 40.4 (35.0-46.0) % Plt Count 287 (150-450) th/mm3 BMP 04/19/18 16:50 Sodium 136 Potassium 5.2 H Chloride 101 Carbon Dioxide 17.3 L BUN 39 H Creatinine 1.48 H Calcium 9.3 Cardiac Enzymes 04/19/18 Range/Units 16:50 Total Creatine Kinase 88 (26-192) U/L Troponin I Less than 0.02 L (0.02-0.05) ng/mL Liver Function 04/19/18 Range/Units 16:50 Total Bilirubin 0.4 (0.2-1.0) mg/dL AST 41 H (15-37) U/L ALT 14 (10-53) U/L Alkaline Phosphatase 57 (45-117) U/L Albumin 3.0 L (3.4-5.0) g/dL - Imaging Impressions Abdomen/Pelvis CT 04/19/18 16:41 CONCLUSION: 1. Free fluid or free air throughout the abdomen. I don't see an obvious etiology for it. There is no evidence of peptic ulcer disease or definite colonic wall thickening or other than some slightly narrowed loops of transverse colon in the midline. I do not see a normal or abnormal appendix 2. Gallbladder is distended. No stone or wall thickening is identified. Chest CTA 04/19/18 16:41 CONCLUSION: 1. No evidence of deep venous thrombosis. 2. Ascites in the upper abdomen and multiple small collections of free air. 3. The esophagus is prominent with air and fluid. These findings were called to [facility] the emergency room at 1852 hours. Chest X-Ray 04/19/18 16:41 CONCLUSION: Negative examination. Exam Vital signs: Vital Signs 04/19/18 15:00 04/19/18 15:20 04/19/18 17:00 Temperature 97.4 F L Pulse Rate 138 H 132 H 124 H Respiratory Rate 28 H 16 20 Blood Pressure 103/97 H 115/69 117/84 Pulse Oximetry 97 95 99 04/19/18 18:00 Temperature Pulse Rate 110 H Respiratory Rate 20 Blood Pressure 128/67 Pulse Oximetry 97 Intake & Output 04/19/18 04/19/18 04/20/18 06:59 18:59 06:59 Intake Total 1000 / 1000 50 / 50 Balance 1000 / 1000 50 / 50 Weight 48.534 kg Intake: IV 1000 / 1000 50 / 50 Zosyn 3.375 GM Premix 50 ML @ 50 / 50 100 mls/hr IV.SIG ONCE ONE Rx#: [id number] NS Inj 1,000 ML @ Wide Open IV. 1000 / 1000 SIG BOLUS ONE Rx#:[id number] Narrative: GENERAL: Chronically ill-appearing female who is sitting up in ED stretcher, alert, anxious. SKIN: Warm and dry. HEAD: Atraumatic. Normocephalic. EYES: Pupils equal and round. No scleral icterus. No injection or drainage. ENT: Mucous membranes dry. NECK: Trachea midline. No JVD. CARDIOVASCULAR: Tachycardic, regular, sinus tachycardia on monitor without murmur rubs or gallops. RESPIRATORY: Tachypneic but no accessory muscle use. Clear to auscultation bilaterally. On nasal cannula. GASTROINTESTINAL: Abdomen, distended, tender throughout but primarily in upper abdomen. +rebound and guarding. MUSCULOSKELETAL: Extremities without clubbing, cyanosis, or edema. No obvious deformities. NEUROLOGICAL: Awake and alert. No obvious cranial nerve deficits. Motor grossly within normal limits. Normal speech. Septic Shock Reassessment Septic shock perfusion: reassessment completed Caprini VTE Risk Assessment Caprini VTE Risk Assessment: Moderate/High Risk (score >= 2) Caprini Risk Assessment Model: Point Value = 1 Point Value = 2 Point Value = 3 Point Value = 5 Age 41-60 Minor surgery BMI > 25 kg/m2 Swollen legs Varicose veins or History of unexplained or recurrent spontaneous Oral contraceptives or hormone replacement Sepsis (< 1 month) Serious lung disease, including pneumonia (< 1 month) Abnormal pulmonary function Acute myocardial infarction Congestive heart failure (< 1 month) History of inflammatory bowel disease Medical patient at bed rest Age 61-74 Arthroscopic surgery Major open surgery (> 45 min) Laparoscopic surgery (> 45 min) Malignancy Confined to bed (> 72 hours) Immobilizing plaster cast Central venous access Age >= 75 History of VTE Family history of VTE Factor V Leiden Prothrombin [id number] Lupus anticoagulant Anticardiolipin antibodies Elevated serum homocysteine Heparin-induced thrombocytopenia Other congenital or acquired thrombophilia Stroke (< 1 month) Elective arthroplasty Hip, pelvis, or leg fracture Acute spinal cord injury (< 1 month) Prophylaxis Regimen: Total Risk Factor Score Risk Level Prophylaxis Regimen 0-1 Low Early ambulation 2 Moderate Order ONE of the following: *Sequential Compression Device (SCD) *Heparin 5000 units SQ BID 3-4 Higher Order ONE of the following medications: *Heparin 5000 units SQ TID *Enoxaparin/Lovenox 40 mg SQ daily (WT < 150 kg, CrCl > 30 mL/min) *Enoxaparin/Lovenox 30 mg SQ daily (WT < 150 kg, CrCl > 10-29 mL/min) *Enoxaparin/Lovenox 30 mg SQ BID (WT < 150 kg, CrCl > 30 mL/min) AND/OR *Sequential Compression Device (SCD) 5 or more Highest Order ONE of the following medications: *Heparin 5000 units SQ TID (Preferred with Epidurals) *Enoxaparin/Lovenox 40 mg SQ daily (WT < 150 kg, CrCl > 30 mL/min) *Enoxaparin/Lovenox 30 mg SQ daily (WT < 150 kg, CrCl > 10-29 mL/min) *Enoxaparin/Lovenox 30 mg SQ BID (WT < 150 kg, CrCl > 30 mL/min) AND *Sequential Compression Device (SCD) Assessment and Plan - Problem List (1) Abdominal pain Code(s): R10.9 - Unspecified abdominal pain Status: Acute (2) Duodenal ulcer with perforation Code(s): K26.5 - Chronic or unspecified duodenal ulcer with perforation Status : Acute (3) ETOH abuse Code(s): F10.10 - Alcohol abuse, uncomplicated Status: Chronic (4) Postoperative pain Code(s): G89.18 - Other acute postprocedural pain Status: Acute (5) Chronic respiratory failure with hypoxia, on home O2 therapy Code(s): J96.11 - Chronic respiratory failure with hypoxia; Z99.81 - Dependence on supplemental oxygen Status: Chronic (6) COPD (chronic obstructive pulmonary disease) Code(s): J44.9 - Chronic obstructive pulmonary disease, unspecified Status: Chronic (7) Tobacco abuse Code(s): Z72.0 - Tobacco use Status: Chronic (8) BLAS (acute kidney injury) Code(s): N17.9 - Acute kidney failure, unspecified Status: Acute (9) Hyperkalemia Code(s): E87.5 - Hyperkalemia Status: Acute (10) Elevated lipase Code(s): R74.8 - Abnormal levels of other serum enzymes Status: Acute (11) Chronic steroid use Status: Chronic (12) Peptic ulcer Code(s): K27.9 - Peptic ulcer, site unspecified, unspecified as acute or chronic , without hemorrhage or perforation Status: Acute (13) Free intraperitoneal air Code(s): K66.8 - Other specified disorders of peritoneum Status: Acute - Assessment and Plan Plan: NEURO: Postoperative pain Dilaudid as needed for pain Alcohol abuse Thiamine 100 mg IV daily. Monitor for signs and symptoms of alcohol withdrawal. RESP: COPD on 2.5-3 L home O2 Ongoing tobacco abuse Tobacco cessation discussed. DuoNeb every 6 hours. Albuterol every 2 hours as needed ISq1 hour awake CTA 04/19 negative for PE. CV: Monitor hemodynamics Lactic acidemia - trend GI: Perforated duodenal ulcer s/p ex laparoscopy with Michel Patch Dr. Kelley . NGT to LIWS. Management of NG tube, EARNESTINE, and diet advancement per general surgery. Protonix drip. Short course of antibiotics for peritoneal contamination as per below, then H pylori treatment Elevated lipase - No evidence of pancreatitis on CT, may be secondary to inflammation from duodenal perf. FEN/RENAL: BLAS Mild hyperkalemia, in the setting of metabolic acidosis. Follow-up BMP. 0.9 NaCl at 100 mL/h. Norris in place. Monitor intake and output. Monitor electrolytes and replace as indicated. ID: Sepsis secondary to perforated duodenal ulcer with abscess and intra-abdominal contamination. F/u blood culture. On zosyn, diflucan, levaquin for intraabdominal contamination. Anticipate short course of therapy (4-5 days). 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 No active symptoms of C diff prior to this presentation, tested to determine colonization status on admission. Will start vancomycin po 125 mg qid for C diff secondary prophylaxis given history of recurrence (ok via NGT per Dr. Kelley) HEME: EBL 10 mL intraop. F/u CBC in am. Coags wnl. ENDO: Chronic prednisone use Has been on prednisone 20 mg po bid, reportedly since 03/14, due to COPD. (Has hx of SLE, not on therapy). She does not provide a detailed history of prednisone use but appears from records that she has been on prednisone ~2 months and thus is at risk for suppression of adrenal axis. Received solumedrol 125 mg IV per ED preoperatively. Will place on hydrocortisone 50 mg IV every 12 perioperatively (with dose increase if clinical symptoms). When able to take p.o, prednisone can be tapered. PROPH: SCD for DVT prophylaxis. Protonix drip as per above. ACCESS: PIV providing adequate access at this time. Patient updated at bedside. Discussed with Dr. Kelley. Level 3 H and P (1) Abdominal pain Qualifiers: Abdominal location: generalized Qualified Code(s): R10.84 - Generalized abdominal pain
[2018-04-19] MEDS ORDERED: Lidocaine PF 1% Inj 5 ML Syringe OTHER ONE (20:45)
[2018-04-19] MEDS ORDERED: Glycopyrrolate Inj 1 MG/5 ML Syringe IV.PUSH ONE (20:45)
[2018-04-19] MEDS ORDERED: Phenylephrine/NS 1000 MCG/10ML Syringe IV.PUSH ONE (20:45)
[2018-04-19] MEDS ORDERED: Neostigmine Inj 5 MG/5 ML Syringe IV.PUSH ONE (20:45)
[2018-04-19] MEDS ORDERED: Bisacodyl 10 MG Supp RECTAL PRN (22:33)
[2018-04-19] MEDS ORDERED: Naloxone Inj 0.4 MG/ML Vial IV.PUSH PRN (22:33)
[2018-04-19] MEDS ORDERED: Post-op Orders (for Pharmacy) OTHER ONE (22:33)
[2018-04-19] MEDS ORDERED: Sugammadex Inj 200 MG/2 ML Vial IV.PUSH ONE (22:49)
--- NOTE | 2018-04-19 22:49 | P.CONGS ---
HPI Gen Surgery Consult Note Consult date: 04/19/18 Reason for consult: other (Free air seen on CT scan) Narrative: CONSULTATION NOTE FOR SURGICAL ATTENDING, DR. TIAGO KELLEY Patient was having some abdominal pain and nausea came into the emergency room a full workup concluded she had some free air. In taking a history she has a history of alcohol use taking Goody's powders smoking previous history of ulcer disease on steroids for pulmonary issues and had sudden onset of some abdominal pain mainly in the right upper quadrant she was drinking some more to try to stop this pain then became more severe came into the emergency room radiographic analysis showed free air on a CTA and CT abdomen and pelvis consistent with a perforated duodenal ulcer. She has never had pain at this type before. Been ongoing for a couple days very severe and it started a couple days ago nothing seems to help it Physical exam and history confirmed the radiologic evaluation. Review of Systems All other systems reviewed negative except as stated in HPI Constitutional: Reports malaise Respiratory: Reports pain with cough, Reports shortness of breath, Reports shortness of breath with activity Gastrointestinal: Reports abdominal pain PMFSH - History History Provided By: Patient, Family Member - Medical History Medical History: Medical History (Last Reviewed 04/19/18 @ 22:42 by Tiago Kelley MD) C. difficile colitis COPD (chronic obstructive pulmonary disease) Diabetes Lupus - Surgical History Surgical History: Surgical History (Last Reviewed 04/19/18 @ 22:42 by Tiago Kelley MD) History of total left hip replacement Hx of tubal ligation - Family History Family History: Family History (Last Reviewed 04/19/18 @ 22:42 by Tiago Kelley MD) Other COPD (chronic obstructive pulmonary disease) - Social History I have reviewed the patient's Social History: Yes - Tobacco History Second Hand Smoke Exposure: Yes Tobacco Use In Past 30 Days: Yes Smoking Status: Heavy tobacco smoker Tobacco Type: Cigarettes - Alcohol History How Often Do You Have a Drink Containing Alcohol: 4 or more times a week - Substance Use History Substance History: No History of Abuse - Travel History Recent Travel in the [place] Within the Last 8 Weeks: No Recent Travel Out of the Country Within the Last 8 Weeks: No - Immunization History Tetanus Immunization: Unsure Hx Influenza Vaccine This Season: No Medications and Allergies Active Medications: Active Medications Al Hydroxide/Mg Hydroxide (Milk Of Magnesia Liq) 30 ml PO Q12H PRN PRN Reason: Mild Constipation Bisacodyl (Dulcolax Supp) 10 mg RECTAL DAILY PRN PRN Reason: SEVERE CONSITIPATION Piperacillin/Tazobactam/Dextrose (Zosyn 2.25 Gm Premix) 50 mls @ 100 mls/hr IV.SIG Q6H [facility] Fluconazole (Diflucan 400 Mg Premix Bag) 200 mls @ 100 mls/hr IV.SIG ONCE ONE Stop: 04/20/18 00:30 Fluconazole (Diflucan 200 Mg Premix Bag) 100 mls @ 100 mls/hr IV.SIG Q24H [facility] Lactated Ringer's (Lr 1000 Ml Inj) 1,000 mls @ 100 mls/hr IV.CONT .Q10H [facility] Pantoprazole Sodium 80 mg/ (Sodium Chloride) 100 mls @ 10 mls/hr IV.CONT Q10H [facility] Levofloxacin/Dextrose (Levaquin 500 Mg Premix Inj) 500 mg in 100 mls @ 100 mls/ hr IV.SIG Q24H [facility] Lactulose (Lactulose Liq) 30 ml PO DAILY PRN PRN Reason: SEVERE CONSITIPATION Miscellaneous Information (Misc Post-Op Orders (For Pharmacy)) 0 each OTHER STAT ONE Stop: 04/19/18 22:34 Naloxone HCl (Narcan Inj) 0.4 mg IV.PUSH UNSCH PRN PRN Reason: SEE LABEL COMMENTS Ondansetron HCl (Zofran Inj) 4 mg IV.PUSH Q6H PRN PRN Reason: NAUSEA OR VOMITING Senna/Docusate Sodium (Rupa-Colace) 1 tab PO BID [facility] Sennosides (Senokot) 17.2 mg PO Q12H PRN PRN Reason: Moderate Constipation Sodium Chloride (Ns Flush) 2 ml IV.FLUSH PRN PRN PRN Reason: FLUSH AFTER USING IV ACCESS Last Admin: 04/19/18 16:56 Dose: 2 ml Allergies Allergy/AdvReac Type Severity Reaction Status Date / Time No Known Allergies Allergy Unverified 03/12/18 19:51 Home Medications Medication Instructions Recorded Confirmed Type albuterol sulfate 1.25 mg INHALATION QID PRN 02/12/18 04/19/18 History albuterol sulfate [Ventolin HFA] 2 puff INHALATION Q4H PRN 02/12/18 04/19/18 History Exam Vital signs: Vital Signs 04/19/18 15:00 04/19/18 15:20 04/19/18 17:00 Temperature 97.4 F L Pulse Rate 138 H 132 H 124 H Respiratory Rate 28 H 16 20 Blood Pressure 103/97 H 115/69 117/84 Pulse Oximetry 97 95 99 04/19/18 18:00 Temperature Pulse Rate 110 H Respiratory Rate 20 Blood Pressure 128/67 Pulse Oximetry 97 Intake & Output 04/19/18 04/19/18 04/20/18 06:59 18:59 06:59 Intake Total 1000 / 1000 50 / 50 Balance 1000 / 1000 50 / 50 Weight 48.534 kg Intake: IV 1000 / 1000 50 / 50 Zosyn 3.375 GM Premix 50 ML @ 50 / 50 100 mls/hr IV.SIG ONCE ONE Rx#: [id number] NS Inj 1,000 ML @ Wide Open IV. 1000 / 1000 SIG BOLUS ONE Rx#:[id number] Narrative: Patient sitting in the ER On oxygen Slightly tachycardic Very thin emaciated lady Neck is supple Chest fairly clear Cardiac shows tachycardia. Abdominal exam exquisite tenderness more so in the right upper quadrant with rebound and guarding surgical scars from a tubal ligation Extremities she moves well. Skin exam consistent with chronic steroid use Neurologic alert oriented obvious distress no focal deficits - Additional findings Additional findings: ITS Impressions Abdomen/Pelvis CT 04/19/18 16:41 CONCLUSION: 1. Free fluid or free air throughout the abdomen. I don't see an obvious etiology for it. There is no evidence of peptic ulcer disease or definite colonic wall thickening or other than some slightly narrowed loops of transverse colon in the midline. I do not see a normal or abnormal appendix 2. Gallbladder is distended. No stone or wall thickening is identified. Chest CTA 04/19/18 16:41 CONCLUSION: 1. No evidence of deep venous thrombosis. 2. Ascites in the upper abdomen and multiple small collections of free air. 3. The esophagus is prominent with air and fluid. These findings were called to [facility] Lee the emergency room at 1852 hours. Chest X-Ray 04/19/18 16:41 CONCLUSION: Negative examination. Laboratory Last Values WBC 10.3 th/mm3 (4.0-11.0) 04/19/18 16:50 RBC 4.80 mil/mm3 (4.00-5.30) 04/19/18 16:50 Hgb 12.1 gm/dL (11.6-15.3) 04/19/18 16:50 Hct 40.4 % (35.0-46.0) 04/19/18 16:50 MCV 84.2 fL (80.0-100.0) 04/19/18 16:50 MCH 25.2 pg (27.0-34.0) L 04/19/18 16:50 MCHC 30.0 % (32.0-36.0) L 04/19/18 16:50 RDW 20.7 % (11.6-17.2) H 04/19/18 16:50 Plt Count 287 th/mm3 (150-450) 04/19/18 16:50 MPV 8.1 fL (7.0-11.0) 04/19/18 16:50 Neut % (Auto) 86.2 % (16.0-70.0) H 04/19/18 16:50 Lymph % (Auto) 9.7 % (9.0-44.0) 04/19/18 16:50 Mckenzie % (Auto) 4.0 % (0.0-8.0) 04/19/18 16:50 Eos % (Auto) 0.0 % (0.0-4.0) 04/19/18 16:50 Baso % (Auto) 0.1 % (0.0-2.0) 04/19/18 16:50 Neut # (Auto) 8.9 th/mm3 (1.8-7.7) H 04/19/18 16:50 Lymph # (Auto) 1.0 th/mm3 (1.0-4.8) 04/19/18 16:50 Mckenzie # (Auto) 0.4 th/mm3 (0.0-0.9) 04/19/18 16:50 Eos # (Auto) 0.0 th/mm3 (0.0-0.4) 04/19/18 16:50 Baso # (Auto) 0.0 th/mm3 (0.0-0.2) 04/19/18 16:50 WBC Differential . 04/19/18 16:50 Differential Comment Auto diff final 04/19/18 16:50 PT 10.9 sec (9.8-11.6) 04/19/18 16:50 INR 1.1 Ratio 04/19/18 16:50 APTT 29.7 sec (24.3-30.1) 04/19/18 16:50 Sodium 136 meq/L (136-145) 04/19/18 16:50 Potassium 5.2 meq/L (3.5-5.1) H 04/19/18 16:50 Chloride 101 meq/L (98-107) 04/19/18 16:50 Carbon Dioxide 17.3 meq/L (21.0-32.0) L 04/19/18 16:50 Anion Gap 18 meq/L (5-15) H 04/19/18 16:50 BUN 39 mg/dL (7-18) H 04/19/18 16:50 Creatinine 1.48 mg/dL (0.50-1.00) H 04/19/18 16:50 Estimated GFR 35 mL/min (>89) L 04/19/18 16:50 Random Glucose 87 mg/dL (74-106) 04/19/18 16:50 Lactic Acid 2.5 mmol/L (0.4-2.0) H 04/19/18 16:50 Calcium 9.3 mg/dL (8.5-10.1) 04/19/18 16:50 Magnesium 1.7 mg/dL (1.5-2.5) 04/19/18 16:50 Total Bilirubin 0.4 mg/dL (0.2-1.0) 04/19/18 16:50 AST 41 U/L (15-37) H 04/19/18 16:50 ALT 14 U/L (10-53) 04/19/18 16:50 Alkaline Phosphatase 57 U/L (45-117) 04/19/18 16:50 Ammonia 15 mcmol/L (11-32) 04/19/18 16:50 Total Creatine Kinase 88 U/L (26-192) 04/19/18 16:50 Troponin I Less than 0.02 ng/mL (0.02-0.05) L 04/19/18 16:50 Total Protein 7.3 g/dL (6.4-8.2) 04/19/18 16:50 Albumin 3.0 g/dL (3.4-5.0) L 04/19/18 16:50 Lipase 978 U/L (73-393) H 04/19/18 16:50 Serum Alcohol Less than 3 mg/dL (0-5) 04/19/18 16:50 Results - Labs 04/20/18 04:30 04/20/18 04:30 Abnormal lab results 04/19/18 04/19/18 04/19/18 Range/Units 16:50 16:50 16:50 MCH 25.2 L (27.0-34.0) pg MCHC 30.0 L (32.0-36.0) % RDW 20.7 H (11.6-17.2) % Neut % (Auto) 86.2 H (16.0-70.0) % Neut # (Auto) 8.9 H (1.8-7.7) th/mm3 Potassium 5.2 H (3.5-5.1) meq/L Carbon Dioxide 17.3 L (21.0-32.0) meq/L Anion Gap 18 H (5-15) meq/L BUN 39 H (7-18) mg/dL Creatinine 1.48 H (0.50-1.00) mg/dL Estimated GFR 35 L (>89) mL/min Lactic Acid 2.5 H (0.4-2.0) mmol/L AST 41 H (15-37) U/L Troponin I Less than 0.02 L (0.02-0.05) ng/mL Albumin 3.0 L (3.4-5.0) g/dL Lipase 978 H (73-393) U/L Diabetes panel 04/19/18 Range/Units 16:50 Sodium 136 (136-145) meq/L Potassium 5.2 H (3.5-5.1) meq/L Chloride 101 (98-107) meq/L Carbon Dioxide 17.3 L (21.0-32.0) meq/L BUN 39 H (7-18) mg/dL Creatinine 1.48 H (0.50-1.00) mg/dL Calcium 9.3 (8.5-10.1) mg/dL AST 41 H (15-37) U/L ALT 14 (10-53) U/L Alkaline Phosphatase 57 (45-117) U/L Total Protein 7.3 (6.4-8.2) g/dL Albumin 3.0 L (3.4-5.0) g/dL Calcium panel 04/19/18 Range/Units 16:50 Calcium 9.3 (8.5-10.1) mg/dL Albumin 3.0 L (3.4-5.0) g/dL Pituitary panel 04/19/18 Range/Units 16:50 Sodium 136 (136-145) meq/L Potassium 5.2 H (3.5-5.1) meq/L Chloride 101 (98-107) meq/L Carbon Dioxide 17.3 L (21.0-32.0) meq/L BUN 39 H (7-18) mg/dL Creatinine 1.48 H (0.50-1.00) mg/dL Calcium 9.3 (8.5-10.1) mg/dL Adrenal panel 04/19/18 Range/Units 16:50 Sodium 136 (136-145) meq/L Potassium 5.2 H (3.5-5.1) meq/L Chloride 101 (98-107) meq/L Carbon Dioxide 17.3 L (21.0-32.0) meq/L BUN 39 H (7-18) mg/dL Creatinine 1.48 H (0.50-1.00) mg/dL Calcium 9.3 (8.5-10.1) mg/dL Total Bilirubin 0.4 (0.2-1.0) mg/dL AST 41 H (15-37) U/L ALT 14 (10-53) U/L Alkaline Phosphatase 57 (45-117) U/L Total Protein 7.3 (6.4-8.2) g/dL Albumin 3.0 L (3.4-5.0) g/dL All other labs normal. - Imaging Abdominal x-ray: report reviewed, image reviewed CT scan - abdomen: report reviewed, image reviewed CT scan - chest: report reviewed, image reviewed CT scan - pelvis: report reviewed, image reviewed (Reviewed CT scan with Dr. Albert Hook [facility]) Assessment and Plan - Assessment (1) Free intraperitoneal air Code(s): K66.8 - Other specified disorders of peritoneum Status: Acute (2) History of peptic ulcer disease Code(s): Z87.11 - Personal history of peptic ulcer disease Status: Chronic (3) Alcohol use Code(s): Z78.9 - Other specified health status Status: Chronic (4) Tobacco use Code(s): Z72.0 - Tobacco use Status: Chronic (5) Diabetes Code(s): E11.9 - Type 2 diabetes mellitus without complications Status: Chronic (6) Abdominal pain Code(s): R10.9 - Unspecified abdominal pain Status: Acute Qualifiers: Abdominal location: generalized Qualified Code(s): R10.84 - Generalized abdominal pain (7) Asthma exacerbation in COPD Code(s): J44.1 - Chronic obstructive pulmonary disease with (acute) exacerbation ; J45.901 - Unspecified asthma with (acute) exacerbation Status: Chronic (8) Current chronic use of systemic steroids Code(s): Z79.52 - nursing home (current) use of systemic steroids Status: Chronic - Plan 67-year-old female with a history of peptic ulcer disease on steroids for her COPD. She uses tobacco and a fair amount of alcohol and she was taking Goody's powders because of the pain in her abdomen resulting in a suspected perforated gastric or duodenal ulcer Reviewed the x-rays I reviewed the laboratory data I reviewed with the case with Dr. Albert freire the radiologist Reviewed the case with Dr. Claire Vasquez critical care Patient require urgent exploration most likely for a perforated duodenal ulcer This was described to the patient in detail she appeared to understand - Attending Attestation CONSULTATION NOTE FOR SURGICAL ATTENDING, DR. TIAGO KELLEY I attest that I had a [id number] encounter with the patient on the same day, and personally performed and documented my assessment and findings in the medical record. The following services were provided during this hospital visit: Chart data review, vital sign assessments/reviewing monitor data Review of consultations notes if present. Medication orders/review and/or management Ordering and/or reviewing lab tests Ordering and/or interpreting/reviewing x-rays and/or diagnostic studies Care of the patient and discussion of the patient with the care team Documentation time To help prompt me to consider important information that might be impacting today's encounter and assessment, Information from prior notes written by myself or my colleagues may have been "brought forward/copy and pasted" into today's note.
[2018-04-19] MEDS ORDERED: fentaNYL Citrate Inj 100 MCG/2 ML Ampul ONE (23:11)
--- NOTE | 2018-04-19 23:24 | MP ---
cc: Tiago Kelley MD, Joseph D MD DATE OF OPERATION: PREOPERATIVE DIAGNOSIS: Free air, probable perforated duodenal ulcer. POSTOPERATIVE DIAGNOSIS: Perforated duodenal ulcer with contamination. PROCEDURE: 1. Diagnostic laparoscopy. 2. Laparoscopic repair of perforated duodenal ulcer with a Michel patch. 3. Laparoscopic placement of drain. 4. Laparoscopic evacuation of intra-abdominal contamination and abscess. ANESTHESIA: General. SURGEON: Tiago Kelley MD INDICATIONS FOR PROCEDURE: This is a pleasant 67-year-old female who was found to have free air consistent with a perforated duodenal ulcer. Plans were made for the above. PROCEDURE: The patient was repositioned in supine position. After anesthesia, her abdomen was prepped with Betadine. She had been given antibiotics, antifungals. We note that she has very fragile skin from her chronic steroid use. After timeout was done, we made an incision just below the umbilicus. Veress needle was inserted and saline rinse was performed and the abdomen was insufflated to 15 mmHg. A 10-mm trocar was introduced. A camera was introduced. Two other working ports are placed, 5 mm below the xiphoid, 5 mm in between the 2 previously placed ports. We can see obvious contamination, a fair amount of greenish fluid and thick reaction. This was evacuated out. There was probably about 400 to 500 mL of this in the abdomen. During this evaluation, we can easily see the perforated ulcer at the first portion of the duodenum. We have to place a fourth working port just below the umbilicus, because her body habitus does not allow access using the 2 upper ports. We were able to identify the perforated ulcer that measures just a little over 8 mm. There was green bile coming from it. This is evacuated, irrigated. We then take #2 Vicryl sutures and are able to completely occlude this with intracorporeal tying. After we sealed this a defect, we had anesthesia pump up the stomach with a fair amount of air, and under pressure with water and saline covering the repair, there were no air bubbles released, so this was airtight. We then draped a piece of omentum over this area and secured to the duodenum to create a Michel patch. During the manipulation of the liver, which is somewhat cirrhotic, there was a small tear. This was stopped with the electrocautery device. I did place a piece of Surgicel over this area for extra hemostasis. Next, we spent a fair amount of time irrigating with 6 liters of saline, the gross contamination all around the liver, the left upper quadrant, down in the pelvis. Some minor flimsy adhesions were taken down and a fair amount of the gross spillage and reaction is removed. Because of the amount of inflammatory response in the abscess, a 10 flat fluted drain was then placed in the mid port and placed close to the repair and underneath the gallbladder. This was sewed in the skin with a 3-0 nylon. The trocars were then all removed after the CO2 was removed as well and the fascial layer was closed with 0 Vicryl and the skin at all 4 sites was closed with a 4-0 nylon because of the changes of skin from her chronic steroid use. MD HA Tai/cristo , 10:54 PM , 11:04 PM
[2018-04-19] MEDS: Pantoprazole Inj 80 MG in Sodium Chlor 0.9% Inj 100 ML IV.CONT SCH (23:38)
[2018-04-20] MEDS ORDERED: Vancomycin Consult Pharmacy OTHER SCH (01:45)
[2018-04-20] MEDS: Levofloxacin 500 mg Premix Inj 500 MG/100 ML PIGGYBACK IV.SIG SCH ×2 (02:40→23:02)
[2018-04-20] MEDS: Thiamine Inj 100 MG in Sodium Chlor 0.9% Inj 100 ML IV.SIG SCH ×2 (04:35→12:34)
[2018-04-20] MEDS: Piperacil/Tazo 2.25 GM Premix 50 ML IV.SIG SCH ×4 (04:35→20:02)
[2018-04-20 04:53] LABS: Baso % (Auto) 0.3 % (0.0-2.0); Eos % (Auto) 0.1 % (0.0-4.0); Hematocrit 30.7 % (35.0-46.0); Hemoglobin 9.4 gm/dL (11.6-15.3); Lymph # (Auto) 0.1 th/mm3 (1.0-4.8); Lymph % (Auto) 1.2 % (9.0-44.0); Mean Corpuscular Hemoglobin 25.2 pg (27.0-34.0); Mean Corpuscular Volume 81.8 fL (80.0-100.0); Mean Platelet Volume 7.8 fL (7.0-11.0); Mono # (Auto) 0.6 th/mm3 (0.0-0.9); Mono % (Auto) 5.9 % (0.0-8.0); Neut # (Auto) 8.8 th/mm3 (1.8-7.7); Neut % (Auto) 92.5 % (16.0-70.0); Platelet Count 224 th/mm3 (150-450); Red Blood Count 3.75 mil/mm3 (4.00-5.30); Red Cell Distribution Width 20.1 % (11.6-17.2); White Blood Count 9.5 th/mm3 (4.0-11.0)
[2018-04-20 04:54] LABS: Mean Corpuscular HGB Conc 30.8 % (32.0-36.0)
[2018-04-20 05:09] LABS: Alanine Aminotransferase 38 U/L (10-53); Albumin 2.1 g/dL (3.4-5.0); Anion Gap 9 meq/L (5-15); Aspartate Aminotransferase 135 U/L (15-37); Blood Urea Nitrogen 26 mg/dL (7-18); Calcium 7.8 mg/dL (8.5-10.1); Carbon Dioxide 22.5 meq/L (21.0-32.0); Chloride 108 meq/L (98-107); Glomerular Filtration Rate Greater Than 89 mL/min (>89); Glucose,Random 177 mg/dL (74-106); Potassium 4.2 meq/L (3.5-5.1); Sodium 139 meq/L (136-145)
[2018-04-20 05:11] LABS: Alkaline Phosphatase 43 U/L (45-117); Total Protein 5.4 g/dL (6.4-8.2)
[2018-04-20] MEDS: Sod Chloride 0.9% Inj 1,000 ML IV.CONT SCH ×2 (06:06→16:27)
[2018-04-20] MEDS: Hydrocortisone Sod Succinate 100 MG Vial IV.PUSH SCH ×2 (08:17→20:02)
[2018-04-20] MEDS: Senna/Docusate Sodium 8.6/50 MG Tablet PO SCH ×2 (08:18→20:03)
[2018-04-20] MEDS: Pantoprazole Inj 80 MG in Sodium Chlor 0.9% Inj 100 ML IV.CONT SCH ×2 (08:18→17:51)
[2018-04-20] MEDS ORDERED: Hydrocortisone Sod Succinate 100 MG Vial IV.PUSH SCH (09:00)
[2018-04-20] MEDS ORDERED: Metoprolol Inj 5 MG/5 ML Vial ONE (10:27)
[2018-04-20] MEDS ORDERED: Amiodarone Inj 150 MG in Dextrose 5% in Water Inj 97 ML IV.SIG ONE ×2 (11:00)
[2018-04-20] MEDS ORDERED: Metoprolol Inj 5 MG/5 ML Vial IV.PUSH ONE (11:00)
--- NOTE | 2018-04-20 11:34 | P.PNGS ---
Subjective Interval history: DAILY PROGRESS NOTE FOR SURGICAL ATTENDING, DR. MITRA LOPEZ "I'm so thirsty!" Physical Exam Vital signs: Vital Signs 04/19/18 15:00 04/19/18 15:20 04/19/18 17:00 Temperature 97.4 F L Pulse Rate 138 H 132 H 124 H Respiratory Rate 28 H 16 20 Blood Pressure 103/97 H 115/69 117/84 Pulse Oximetry 97 95 99 04/19/18 18:00 04/19/18 23:02 04/19/18 23:15 Temperature 97.3 F L Pulse Rate 110 H 112 H 107 H Respiratory Rate 20 12 15 Blood Pressure 128/67 146/67 H 148/67 H Pulse Oximetry 97 99 97 04/19/18 23:30 04/19/18 23:42 04/20/18 00:40 Temperature 97.5 F L 97.6 F Pulse Rate 101 H 101 H Respiratory Rate 20 24 Blood Pressure 152/73 H 137/63 Pulse Oximetry 99 99 97 04/20/18 04:46 04/20/18 08:00 04/20/18 09:29 Temperature 98.2 F Pulse Rate 104 H 112 H 109 H Respiratory Rate 16 20 Blood Pressure 130/61 Pulse Oximetry 98 04/20/18 09:31 Temperature Pulse Rate Respiratory Rate Blood Pressure Pulse Oximetry 100 Intake & Output 04/19/18 04/20/18 04/20/18 18:59 06:59 18:59 Intake Total 1000 / 1000 2227 / 2227 100 / 100 Output Total 1725 / 1725 Balance 1000 / 1000 502 / 502 100 / 100 Weight 48.534 kg 59.8 kg Intake: IV 1000 / 1000 927 / 927 100 / 100 LR 1000 mL Inj 1,000 ML @ 100 626 / 626 mls/hr IV.CONT .Q10H [facility] Rx#: [id number] Protonix Inj 80 MG In NS Inj 100 / 100 100 ML @ 10 mls/hr IV.CONT Q10H [facility] Rx#:[id number] Levaquin 500 mg Premix Inj 500 100 / 100 mg In 100 ml @ 100 mls/hr IV. SIG Q24H [facility] Rx#:[id number] Zosyn 2.25 GM Premix 50 ML @ 50 / 50 100 mls/hr IV.SIG Q6H [facility] Rx#: [id number] Zosyn 3.375 GM Premix 50 ML @ 50 / 50 100 mls/hr IV.SIG ONCE ONE Rx#: [id number] NS Inj 1,000 ML @ Wide Open IV. 1000 / 1000 SIG BOLUS ONE Rx#:[id number] Thiamine Inj 100 MG In NS Inj 101 / 101 100 ML @ 100 mls/hr IV.SIG DAILY [facility] Rx#:[id number] Anesthesia Amount 1300 / 1300 Output: Urine 425 / 425 Estimated Blood Loss 20 / 20 Urine Amount (Catheter) 600 / 600 Indwelling Urethral Catheter 600 / 600 Gastric Drainage 650 / 650 Left Nare 650 / 650 Wound Drainage 30 / 30 # 1 Lower Anterior Medial 30 / 30 Abdomen Other: Weight On Admission 58.7 kg Narrative: Alert and awake Abd: soft; minimally tender; inc c/d/i; EARNESTINE in place No edema - Additional findings Additional findings: Abnormal lab results 04/19/18 04/19/18 04/19/18 Range/Units 16:50 16:50 16:50 RBC (4.00-5.30) mil/mm3 Hgb (11.6-15.3) gm/dL Hct (35.0-46.0) % MCH 25.2 L (27.0-34.0) pg MCHC 30.0 L (32.0-36.0) % RDW 20.7 H (11.6-17.2) % Neut % (Auto) 86.2 H (16.0-70.0) % Lymph % (Auto) (9.0-44.0) % Neut # (Auto) 8.9 H (1.8-7.7) th/mm3 Lymph # (Auto) (1.0-4.8) th/mm3 Potassium 5.2 H (3.5-5.1) meq/L Chloride (98-107) meq/L Carbon Dioxide 17.3 L (21.0-32.0) meq/L Anion Gap 18 H (5-15) meq/L BUN 39 H (7-18) mg/dL Creatinine 1.48 H (0.50-1.00) mg/dL Estimated GFR 35 L (>89) mL/min POC Glucose (68-110) mg/dl Random Glucose (74-106) mg/dL Lactic Acid 2.5 H (0.4-2.0) mmol/L Calcium (8.5-10.1) mg/dL AST 41 H (15-37) U/L Alkaline Phosphatase (45-117) U/L Troponin I Less than 0.02 L (0.02-0.05) ng/mL Total Protein (6.4-8.2) g/dL Albumin 3.0 L (3.4-5.0) g/dL Lipase 978 H (73-393) U/L 04/20/18 04/20/18 04/20/18 Range/Units 04:30 04:30 09:23 RBC 3.75 L (4.00-5.30) mil/mm3 Hgb 9.4 L D (11.6-15.3) gm/dL Hct 30.7 L (35.0-46.0) % MCH 25.2 L (27.0-34.0) pg MCHC 30.8 L (32.0-36.0) % RDW 20.1 H (11.6-17.2) % Neut % (Auto) 92.5 H (16.0-70.0) % Lymph % (Auto) 1.2 L (9.0-44.0) % Neut # (Auto) 8.8 H (1.8-7.7) th/mm3 Lymph # (Auto) 0.1 L (1.0-4.8) th/mm3 Potassium (3.5-5.1) meq/L Chloride 108 H (98-107) meq/L Carbon Dioxide (21.0-32.0) meq/L Anion Gap (5-15) meq/L BUN 26 H (7-18) mg/dL Creatinine (0.50-1.00) mg/dL Estimated GFR (>89) mL/min POC Glucose 119 H (68-110) mg/dl Random Glucose 177 H (74-106) mg/dL Lactic Acid (0.4-2.0) mmol/L Calcium 7.8 L D (8.5-10.1) mg/dL AST 135 H (15-37) U/L Alkaline Phosphatase 43 L (45-117) U/L Troponin I (0.02-0.05) ng/mL Total Protein 5.4 L D (6.4-8.2) g/dL Albumin 2.1 L D (3.4-5.0) g/dL Lipase (73-393) U/L ITS Impressions Abdomen/Pelvis CT 04/19/18 16:41 CONCLUSION: 1. Free fluid or free air throughout the abdomen. I don't see an obvious etiology for it. There is no evidence of peptic ulcer disease or definite colonic wall thickening or other than some slightly narrowed loops of transverse colon in the midline. I do not see a normal or abnormal appendix 2. Gallbladder is distended. No stone or wall thickening is identified. Chest CTA 04/19/18 16:41 CONCLUSION: 1. No evidence of deep venous thrombosis. 2. Ascites in the upper abdomen and multiple small collections of free air. 3. The esophagus is prominent with air and fluid. These findings were called to [facility] Lee the emergency room at 1852 hours. Chest X-Ray 04/19/18 16:41 CONCLUSION: Negative examination. - Urinary Catheter Management Indwelling Urethral Catheter Cath placed during this visit: yes Urethral indwelling: Yes Reason for continuing: Hourly intake/output Insertion date: 04/19/18 Assessment and Plan - Assessment (1) Atrial fibrillation with RVR Code(s): I48.91 - Unspecified atrial fibrillation Status: Acute Onset Date: ~04/20/18 (2) Free intraperitoneal air Code(s): K66.8 - Other specified disorders of peritoneum Status: Acute Plan: 67 year old female POD1 lap repair of perforated duodenal ulcer -Keep NGT in -Okay for ice chips sparingly -Continue routine EARNESTINE drain care -Now in afib with RVR--- CCM managing -OOB as heart rate stabilizes (3) History of peptic ulcer disease Code(s): Z87.11 - Personal history of peptic ulcer disease Status: Chronic (4) Alcohol use Code(s): Z78.9 - Other specified health status Status: Chronic (5) Tobacco use Code(s): Z72.0 - Tobacco use Status: Chronic (6) Diabetes Code(s): E11.9 - Type 2 diabetes mellitus without complications Status: Chronic (7) Asthma exacerbation in COPD Code(s): J44.1 - Chronic obstructive pulmonary disease with (acute) exacerbation ; J45.901 - Unspecified asthma with (acute) exacerbation Status: Chronic (8) Current chronic use of systemic steroids Code(s): Z79.52 - assisted (current) use of systemic steroids Status: Chronic (9) Duodenal ulcer with perforation Code(s): K26.5 - Chronic or unspecified duodenal ulcer with perforation Status : Acute - Attending Attestation NOTE FOR SURGICAL ATTENDING, DR. MITRA LOPEZ Patient doing fairly well Reviewed the case with Dr. Vasquez Patient went into atrial fibrillation with rapid ventricular response early this morning we will keep in the ICU until this stabilizes. Continue to monitor EARNESTINE output NG tube output and urine output Continue antibiotic therapy Watch for DTs I agree with above assessment and plan. The exam, history, and the medical decision-making described in the above note were completed with the assistance of the mid-level provider. I reviewed and agree with the findings presented. I attest that I had a [id number] encounter with the patient on the same day, and personally performed and documented my assessment and findings in the medical record. The following services were provided during this hospital visit: Chart data review, vital sign assessments/reviewing monitor data Review of consultations notes if present. Medication orders/review and/or management Ordering and/or reviewing lab tests Ordering and/or interpreting/reviewing x-rays and/or diagnostic studies Care of the patient and discussion of the patient with the care team Documentation time To help prompt me to consider important information that might be impacting today's encounter and assessment, Information from prior notes written by myself or my colleagues may have been "brought forward/copy and pasted" into today's note. (6) Diabetes Qualifiers: Diabetes mellitus type: type 2 Diabetes mellitus complication status: with hyperglycemia
[2018-04-20] MEDS ORDERED: Magnesium Sulfate Inj 2 GM in Sodium Chlor 0.9% Inj 96 ML IV.SIG ONE (12:00)
[2018-04-20] MEDS ORDERED: Calcium Chloride Inj 1 GM in Dextrose 5% in Water Inj 100 ML IV.SIG ONE ×2 (12:00)
--- NOTE | 2018-04-20 13:59 | P.PNCC ---
Subjective Subjective Remarks/Hospital Course: 04/19: 67-year-old female with past medical history of COPD on 2.5-3 L O2 with ongoing tobacco abuse, diabetes who presented to [facility] emergency department with 2 day history of abdominal pain and distension. She states that the pain started on Tuesday 04/17 and she drank alcohol most of the day in order to ease the pain. She also took Goody powder. She has been nauseated and had several episodes of vomiting without hematemesis. Has been having normal formed stools. Denies fever. She has also been SOB, no cough. She presented with tachycardia 120-130s, normotensive. CT showed intra- abdominal free air and free fluid. Dr. Kelley has evaluated and will be taking for exp lap. Se received vanc and zosyn in the ED. Evaluated again postoperatively. Perforated duodenal ulcer was identified. She has undergone laparoscopic repair with Michel patch. There was significant intra -abdominal contamination with abscess evacuation, irrigation, and EARNESTINE placement. She received 1300 crystalloid, EBL 10, UOP 275. She was extubated postoperatively to CT. Heart rate down to 101, normotensive. NGT has been inserted and placed to LIWS with small bilious output. 04/20: Remains on nasal cannula. Had episode of A. fib with RVR earlier which responded to Lopressor 5 mg IV. Going in and out of A. fib however rate controlled following Lopressor. Started amiodarone IV bolus followed by drip to attempt to keep in sinus rhythm. Maintaining blood pressure. Otherwise appears comfortable. Asking to drink water. Denies any chest pain or shortness of breath. Objective Vital Signs / I&O: Vital Signs 04/19/18 15:00 04/19/18 15:20 04/19/18 17:00 Temperature 97.4 F L Pulse Rate 138 H 132 H 124 H Respiratory Rate 28 H 16 20 Blood Pressure 103/97 H 115/69 117/84 Pulse Oximetry 97 95 99 04/19/18 18:00 04/19/18 23:02 04/19/18 23:15 Temperature 97.3 F L Pulse Rate 110 H 112 H 107 H Respiratory Rate 20 12 15 Blood Pressure 128/67 146/67 H 148/67 H Pulse Oximetry 97 99 97 04/19/18 23:30 04/19/18 23:42 04/20/18 00:40 Temperature 97.5 F L 97.6 F Pulse Rate 101 H 101 H Respiratory Rate 20 24 Blood Pressure 152/73 H 137/63 Pulse Oximetry 99 99 97 04/20/18 04:46 04/20/18 08:00 04/20/18 09:29 Temperature 98.2 F Pulse Rate 104 H 112 H 109 H Respiratory Rate 16 20 Blood Pressure 130/61 Pulse Oximetry 98 04/20/18 09:31 04/20/18 12:00 Temperature 98 F Pulse Rate 97 H Respiratory Rate Blood Pressure 132/64 Pulse Oximetry 100 98 Intake & Output 04/19/18 04/20/18 04/20/18 18:59 06:59 18:59 Intake Total 1000 / 1000 2227 / 2227 200 / 200 Output Total 1725 / 1725 Balance 1000 / 1000 502 / 502 200 / 200 Weight 48.534 kg 59.8 kg Intake: IV 1000 / 1000 927 / 927 200 / 200 LR 1000 mL Inj 1,000 ML @ 100 626 / 626 mls/hr IV.CONT .Q10H [facility] Rx#: [id number] Protonix Inj 80 MG In NS Inj 100 / 100 100 ML @ 10 mls/hr IV.CONT Q10H [facility] Rx#:[id number] Cordarone Inj 150 MG In D5W Inj 100 / 100 97 ML @ 600 mls/hr IV.SIG ONCE ONE Rx#:[id number] Levaquin 500 mg Premix Inj 500 100 / 100 mg In 100 ml @ 100 mls/hr IV. SIG Q24H [facility] Rx#:[id number] Zosyn 2.25 GM Premix 50 ML @ 50 / 50 100 mls/hr IV.SIG Q6H [facility] Rx#: [id number] Zosyn 3.375 GM Premix 50 ML @ 50 / 50 100 mls/hr IV.SIG ONCE ONE Rx#: [id number] NS Inj 1,000 ML @ Wide Open IV. 1000 / 1000 SIG BOLUS ONE Rx#:[id number] Thiamine Inj 100 MG In NS Inj 101 / 101 100 ML @ 100 mls/hr IV.SIG DAILY [facility] Rx#:[id number] Anesthesia Amount 1300 / 1300 Output: Urine 425 / 425 Estimated Blood Loss 20 / 20 Urine Amount (Catheter) 600 / 600 Indwelling Urethral Catheter 600 / 600 Gastric Drainage 650 / 650 Left Nare 650 / 650 Wound Drainage 30 / 30 # 1 Lower Anterior Medial Abdomen Other: Weight On Admission 58.7 kg Result Diagrams: 04/20/18 04:30 04/20/18 04:30 Other Results: Laboratory Results - last 24 hr 04/19/18 04/19/18 04/19/18 16:50 16:50 16:50 WBC 10.3 RBC 4.80 Hgb 12.1 Hct 40.4 MCV 84.2 MCH 25.2 L MCHC 30.0 L RDW 20.7 H Plt Count 287 MPV 8.1 Neut % (Auto) 86.2 H Lymph % (Auto) 9.7 Stokes % (Auto) 4.0 Eos % (Auto) 0.0 Baso % (Auto) 0.1 Neut # (Auto) 8.9 H Lymph # (Auto) 1.0 Stokes # (Auto) 0.4 Eos # (Auto) 0.0 Baso # (Auto) 0.0 WBC Differential . Differential Comment Auto diff final PT 10.9 INR 1.1 APTT 29.7 Sodium 136 Potassium 5.2 H Chloride 101 Carbon Dioxide 17.3 L Anion Gap 18 H BUN 39 H Creatinine 1.48 H Estimated GFR 35 L POC Glucose Random Glucose 87 Lactic Acid Calcium 9.3 Magnesium Total Bilirubin 0.4 AST 41 H ALT 14 Alkaline Phosphatase 57 Ammonia Total Creatine Kinase 88 Troponin I Less than 0.02 L Total Protein 7.3 Albumin 3.0 L Lipase 978 H Serum Alcohol 04/19/18 04/19/18 04/19/18 16:50 16:50 16:50 WBC RBC Hgb Hct MCV MCH MCHC RDW Plt Count MPV Neut % (Auto) Lymph % (Auto) Stokes % (Auto) Eos % (Auto) Baso % (Auto) Neut # (Auto) Lymph # (Auto) Stokes # (Auto) Eos # (Auto) Baso # (Auto) WBC Differential Differential Comment PT INR APTT Sodium Potassium Chloride Carbon Dioxide Anion Gap BUN Creatinine Estimated GFR POC Glucose Random Glucose Lactic Acid 2.5 H Calcium Magnesium 1.7 Total Bilirubin AST ALT Alkaline Phosphatase Ammonia 15 Total Creatine Kinase Troponin I Total Protein Albumin Lipase Serum Alcohol 04/19/18 04/19/18 04/20/18 16:50 23:22 04:30 WBC 9.5 RBC 3.75 L Hgb 9.4 L D Hct 30.7 L MCV 81.8 MCH 25.2 L MCHC 30.8 L RDW 20.1 H Plt Count 224 MPV 7.8 Neut % (Auto) 92.5 H Lymph % (Auto) 1.2 L Stokes % (Auto) 5.9 Eos % (Auto) 0.1 Baso % (Auto) 0.3 Neut # (Auto) 8.8 H Lymph # (Auto) 0.1 L Stokes # (Auto) 0.6 Eos # (Auto) 0.0 Baso # (Auto) 0.0 WBC Differential . Differential Comment Auto diff final PT INR APTT Sodium Potassium Chloride Carbon Dioxide Anion Gap BUN Creatinine Estimated GFR POC Glucose Random Glucose Lactic Acid 1.3 Calcium Magnesium Total Bilirubin AST ALT Alkaline Phosphatase Ammonia Total Creatine Kinase Troponin I Total Protein Albumin Lipase Serum Alcohol Less than 3 04/20/18 04/20/18 04/20/18 04:30 04:30 09:23 WBC RBC Hgb Hct MCV MCH MCHC RDW Plt Count MPV Neut % (Auto) Lymph % (Auto) Stokes % (Auto) Eos % (Auto) Baso % (Auto) Neut # (Auto) Lymph # (Auto) Stokes # (Auto) Eos # (Auto) Baso # (Auto) WBC Differential Differential Comment PT INR APTT Sodium 139 Potassium 4.2 D Chloride 108 H Carbon Dioxide 22.5 Anion Gap 9 BUN 26 H Creatinine 0.60 Estimated GFR Greater than 89 POC Glucose 119 H Random Glucose 177 H Lactic Acid Calcium 7.8 L D Magnesium 1.8 Total Bilirubin 0.2 AST 135 H ALT 38 Alkaline Phosphatase 43 L Ammonia Total Creatine Kinase Troponin I Total Protein 5.4 L D Albumin 2.1 L D Lipase Serum Alcohol Imaging: Abdomen/Pelvis CT 04/19/18 16:41 CONCLUSION: 1. Free fluid or free air throughout the abdomen. I don't see an obvious etiology for it. There is no evidence of peptic ulcer disease or definite colonic wall thickening or other than some slightly narrowed loops of transverse colon in the midline. I do not see a normal or abnormal appendix 2. Gallbladder is distended. No stone or wall thickening is identified. Chest CTA 04/19/18 16:41 CONCLUSION: 1. No evidence of deep venous thrombosis. 2. Ascites in the upper abdomen and multiple small collections of free air. 3. The esophagus is prominent with air and fluid. These findings were called to [facility] the emergency room at 1852 hours. Chest X-Ray 04/19/18 16:41 CONCLUSION: Negative examination. Objective Remarks: HEENT/Neuro: No pallor or icterus, tongue moist, DERRICK, Awake alert oriented 3 , nonfocal grossly, moving all 4 extremities Neck: No JVD Chest/pulmonary: CTA bilaterally, no wheezing Cardiovascular: S1-S2 irregularly irregular, no gallop or murmur GI/abdomen: Soft, nontender, bowel sounds present Extremities: Warm bilaterally, no edema Assessment and Plan - Assessment and Plan Plan: NEURO: Postoperative pain Dilaudid as needed for pain Alcohol abuse Thiamine 100 mg IV daily. Monitor for signs and symptoms of alcohol withdrawal. RESP: COPD on 2.5-3 L home O2 Ongoing tobacco abuse Tobacco cessation discussed. DuoNeb every 6 hours prn. Hold Albuterol prn due to Afib with RVR. ISq1 hour awake CTA 04/19 negative for PE. CV: Afib with RVR Monitor hemodynamics Lactic acidemia - trend Status post Lopressor 5 mg IV. Amiodarone 150 mg bolus followed by drip. Supplement magnesium, calcium. GI: Perforated duodenal ulcer s/p ex laparoscopy with Michel Patch Dr. Kelley . NGT to LIWS. Management of NG tube, EARNESTINE, and diet advancement per general surgery. Protonix drip. Short course of antibiotics for peritoneal contamination as per below, then H pylori treatment Elevated lipase - No evidence of pancreatitis on CT, may be secondary to inflammation from duodenal perf. FEN/RENAL: BLAS Mild hyperkalemia, in the setting of metabolic acidosis. Follow-up BMP. 0.9 NaCl at 100 mL/h. Norris in place. Monitor intake and output. Monitor electrolytes and replace as indicated. ID: Sepsis secondary to perforated duodenal ulcer with abscess and intra-abdominal contamination. F/u blood culture. On zosyn, diflucan, levaquin for intraabdominal contamination. Anticipate short course of therapy (4-5 days). 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 No active symptoms of C diff prior to this presentation, tested to determine colonization status on admission. Will start vancomycin po 125 mg qid for C diff secondary prophylaxis given history of recurrence (ok via NGT per Dr. Kelley) HEME: EBL 10 mL intraop. F/u CBC in am. Coags wnl. ENDO: Chronic prednisone use Has been on prednisone 20 mg po bid, reportedly since 03/14, due to COPD. (Has hx of SLE, not on therapy). She does not provide a detailed history of prednisone use but appears from records that she has been on prednisone ~2 months and thus is at risk for suppression of adrenal axis. Received solumedrol 125 mg IV per ED preoperatively. Will place on hydrocortisone 50 mg IV every 12 perioperatively (with dose increase if clinical symptoms). When able to take p.o, prednisone can be tapered. PROPH: SCD for DVT prophylaxis. Protonix drip as per above. ACCESS: PIV providing adequate access at this time. Patient updated at bedside. Consult and transfer to hospitalist service for further medical management. Critical care will be available as needed.
--- NOTE | 2018-04-20 16:30 | ECG ---
Date Performed: 04/19/2018 Time Performed: 15:16:49 PTAGE: 67 years EKG: JUNCTIONAL TACHYCARDIA LEFT VENTRICULAR HYPERTROPHY AND ST-T CHANGE When compared to previo us tracing, patient is no longer in a Normal Sinus rhythm . ABNORMAL ECG PREVIOUS TRACING : 02/13/2018 14.37 DOCTOR: Arnulfo Loya Interpretating Date/Time 04/20/2018 16:28:56
[2018-04-21] MEDS: Piperacil/Tazo 2.25 GM Premix 50 ML IV.SIG SCH ×3 (01:28→13:31)
[2018-04-21] MEDS: Pantoprazole Inj 80 MG in Sodium Chlor 0.9% Inj 100 ML IV.CONT SCH ×2 (03:33→15:24)
[2018-04-21] MEDS: Sod Chloride 0.9% Inj 1,000 ML IV.CONT SCH ×3 (05:50→22:00)
[2018-04-21] MEDS: Thiamine Inj 100 MG in Sodium Chlor 0.9% Inj 100 ML IV.SIG SCH (08:32)
[2018-04-21] MEDS: Hydrocortisone Sod Succinate 100 MG Vial IV.PUSH SCH ×2 (08:33→20:17)
--- NOTE | 2018-04-21 08:43 | P.PNGS ---
Subjective Patient reports: feels better Interval history: DAILY PROGRESS NOTE FOR SURGICAL ATTENDING, DR. MITRA LOPEZ "I'm so hungry I will eat anything." Up to chair HR controlled Maddison HOLLY at bedside Physical Exam Vital signs: Vital Signs 04/20/18 09:29 04/20/18 09:31 04/20/18 12:00 Temperature 98 F Pulse Rate 109 H 97 H Respiratory Rate 20 Blood Pressure 132/64 Pulse Oximetry 100 98 04/20/18 16:00 04/20/18 16:15 04/20/18 20:00 Temperature 98 F 98.3 F Pulse Rate 92 H 89 84 Respiratory Rate 16 14 Blood Pressure 122/64 117/60 Pulse Oximetry 98 98 04/20/18 20:20 04/20/18 22:00 04/21/18 00:00 Temperature 98.1 F Pulse Rate 79 82 Respiratory Rate 12 Blood Pressure 118/52 L Pulse Oximetry 99 100 04/21/18 02:00 04/21/18 04:00 04/21/18 06:00 Temperature 97.3 F L Pulse Rate 80 78 74 Respiratory Rate 14 Blood Pressure 123/60 Pulse Oximetry 97 Intake & Output 0904/21/18 04/21/18 18:59 06:59 18:59 Intake Total 1250 / 1250 1909 Output Total 850 / 850 835 / 835 Balance 400 / 400 1075 / 1075 Weight 63.8 kg Intake: IV 1250 / 1250 1909 Cordarone Inj 450 MG In D5W Inj 250 / 250 241 ML @ 1 MG/MIN 33.33 mls/hr IV.CONT TITRATE PRN Rx#: [id number] Protonix Inj 80 MG In NS Inj 100 / 100 100 / 100 100 ML @ 10 mls/hr IV.CONT Q10H [facility] Rx#:[id number] NS Inj 1,000 ML @ 100 mls/hr IV 1000 / 1000 1000 / 1000 .CONT .Q10H [facility] Rx#:[id number] Cordarone Inj 150 MG In D5W Inj 100 / 100 97 ML @ 600 mls/hr IV.SIG ONCE ONE Rx#:[id number] Calcium Chloride Inj 1 GM In 110 / 110 D5W Inj 100 ML @ 110 mls/hr IV. SIG ONCE ONE Rx#:[id number] Diflucan 200 mg Premix Bag 100 100 / 100 ML @ 100 mls/hr IV.SIG Q24H [facility] Rx#:[id number] Levaquin 500 mg Premix Inj 500 100 / 100 mg In 100 ml @ 100 mls/hr IV. SIG Q24H [facility] Rx#:[id number] Magnesium Sulfate Inj 2 GM In 100 / 100 NS Inj 96 ML @ 50 mls/hr IV.SIG ONCE ONE Rx#:[id number] Zosyn 2.25 GM Premix 50 ML @ 50 / 50 150 / 150 100 mls/hr IV.SIG Q6H [facility] Rx#: [id number] Output: Urine Amount (Catheter) 650 / 650 575 / 575 Indwelling Urethral Catheter 650 / 650 575 / 575 Gastric Drainage 200 / 200 200 / 200 Left Nare 200 / 200 200 / 200 Wound Drainage 60 / 60 # 1 Lower Anterior Medial 60 / 60 Abdomen Narrative: Alert and awake Abd: Binder in place; EARNESTINE with serous mildly cloudy drainage; lap sites c/d/i; dressing in place with mild drainage. No edema Abdomen soft Minimal NG tube output - Additional findings Additional findings: ITS Impressions Abdomen/Pelvis CT 04/19/18 16:41 CONCLUSION: 1. Free fluid or free air throughout the abdomen. I don't see an obvious etiology for it. There is no evidence of peptic ulcer disease or definite colonic wall thickening or other than some slightly narrowed loops of transverse colon in the midline. I do not see a normal or abnormal appendix 2. Gallbladder is distended. No stone or wall thickening is identified. Chest CTA 04/19/18 16:41 CONCLUSION: 1. No evidence of deep venous thrombosis. 2. Ascites in the upper abdomen and multiple small collections of free air. 3. The esophagus is prominent with air and fluid. These findings were called to [facility] the emergency room at 1852 hours. Chest X-Ray 04/19/18 16:41 CONCLUSION: Negative examination. Abnormal lab results 04/20/18 04/21/18 04/21/18 Range/Units 21:17 11:13 11:13 WBC 12.5 H (4.0-11.0) th/mm3 RBC 3.26 L (4.00-5.30) mil/mm3 Hgb 8.0 L (11.6-15.3) gm/dL Hct 26.7 L (35.0-46.0) % MCH 24.5 L (27.0-34.0) pg MCHC 29.9 L (32.0-36.0) % RDW 19.6 H (11.6-17.2) % Neut % (Auto) 94.3 H (16.0-70.0) % Lymph % (Auto) 1.7 L (9.0-44.0) % Neut # (Auto) 11.8 H (1.8-7.7) th/mm3 Lymph # (Auto) 0.2 L (1.0-4.8) th/mm3 Potassium 3.1 L D (3.5-5.1) meq/L Creatinine 0.36 L (0.50-1.00) mg/dL POC Glucose 144 H (68-110) mg/dl - Urinary Catheter Management Indwelling Urethral Catheter Cath placed during this visit: yes Urethral indwelling: Yes Reason for continuing: Hourly intake/output Insertion date: 04/19/18 Assessment and Plan - Assessment (1) Duodenal ulcer with perforation Code(s): K26.5 - Chronic or unspecified duodenal ulcer with perforation Status : Acute (2) Atrial fibrillation with RVR Code(s): I48.91 - Unspecified atrial fibrillation Status: Acute Onset Date: ~04/20/18 (3) Free intraperitoneal air Code(s): K66.8 - Other specified disorders of peritoneum Status: Acute Plan: 67 year old female POD1 lap repair of perforated duodenal ulcer -Keep NGT in to LIWS -Okay for ice chips sparingly -Continue routine EARNESTINE drain care -Went into afib with RVR yesterday --- now on Amiodarone drip---HR controlled -Continue OOB as heart rate stabilizes -Continue care in ISC due to Amiodarone drip -Check labs today -Continue IV antibiotics (4) History of peptic ulcer disease Code(s): Z87.11 - Personal history of peptic ulcer disease Status: Chronic (5) Alcohol use Code(s): Z78.9 - Other specified health status Status: Chronic (6) Tobacco use Code(s): Z72.0 - Tobacco use Status: Chronic (7) Diabetes Code(s): E11.9 - Type 2 diabetes mellitus without complications Status: Chronic (8) Asthma exacerbation in COPD Code(s): J44.1 - Chronic obstructive pulmonary disease with (acute) exacerbation ; J45.901 - Unspecified asthma with (acute) exacerbation Status: Chronic (9) Current chronic use of systemic steroids Code(s): Z79.52 - superintendent terminal (current) use of systemic steroids Status: Chronic - Plan Not much out of her NG tube today Start clear liquids Clamp NG tube Keep Norris in place - Attending Attestation NOTE FOR SURGICAL ATTENDING, DR. MITRA LOPEZ I agree with above assessment and plan. The exam, history, and the medical decision-making described in the above note were completed with the assistance of the mid-level provider. I reviewed and agree with the findings presented. I attest that I had a [id number] encounter with the patient on the same day, and personally performed and documented my assessment and findings in the medical record. The following services were provided during this hospital visit: Chart data review, vital sign assessments/reviewing monitor data Review of consultations notes if present. Medication orders/review and/or management Ordering and/or reviewing lab tests Ordering and/or interpreting/reviewing x-rays and/or diagnostic studies Care of the patient and discussion of the patient with the care team Documentation time To help prompt me to consider important information that might be impacting today's encounter and assessment, Information from prior notes written by myself or my colleagues may have been "brought forward/copy and pasted" into today's note. (7) Diabetes Qualifiers: Diabetes mellitus type: type 2 Diabetes mellitus complication status: with hyperglycemia
[2018-04-21] MEDS: Senna/Docusate Sodium 8.6/50 MG Tablet PO SCH ×2 (09:00→20:17)
[2018-04-21 11:52] LABS: Baso % (Auto) 0.1 % (0.0-2.0); Hematocrit 26.7 % (35.0-46.0); Lymph # (Auto) 0.2 th/mm3 (1.0-4.8); Lymph % (Auto) 1.7 % (9.0-44.0); Mean Corpuscular Hemoglobin 24.5 pg (27.0-34.0); Mean Corpuscular Volume 81.9 fL (80.0-100.0); Mean Platelet Volume 7.7 fL (7.0-11.0); Mono # (Auto) 0.5 th/mm3 (0.0-0.9); Mono % (Auto) 3.9 % (0.0-8.0); Neut # (Auto) 11.8 th/mm3 (1.8-7.7); Neut % (Auto) 94.3 % (16.0-70.0); Platelet Count 195 th/mm3 (150-450); Red Blood Count 3.26 mil/mm3 (4.00-5.30); Red Cell Distribution Width 19.6 % (11.6-17.2); White Blood Count 12.5 th/mm3 (4.0-11.0)
[2018-04-21 12:07] LABS: Mean Corpuscular HGB Conc 29.9 % (32.0-36.0)
[2018-04-21 12:21] LABS: Anion Gap 7 meq/L (5-15); Blood Urea Nitrogen 11 mg/dL (7-18); Calcium 9.2 mg/dL (8.5-10.1); Carbon Dioxide 26.6 meq/L (21.0-32.0); Chloride 105 meq/L (98-107); Glomerular Filtration Rate Greater Than 89 mL/min (>89); Glucose,Random 97 mg/dL (74-106); Potassium 3.1 meq/L (3.5-5.1); Sodium 139 meq/L (136-145)
--- NOTE | 2018-04-21 14:23 | ECG ---
Date Performed: 04/20/2018 Time Performed: 10:35:14 PTAGE: 67 years EKG: Sinus rhythm . Compared to previous tracing rate has slowed with normalization of ekg Normal ECG PREVIOUS TRACING : 04/19/2018 15.16 DOCTOR: Lg Saldivar Interpretating Date/Time 04/21/2018 14:23:01
[2018-04-21] MEDS: Potassium Chlor 20 mEq Premix 20 MEQ/100 ML PIGGYBACK IV.SIG SCH ×2 (14:35→16:45)
[2018-04-21] MEDS ORDERED: Metoprolol Inj 5 MG/5 ML Vial IV.PUSH PRN (16:04)
[2018-04-21] MEDS ORDERED: Potassium Chlor 40 mEq Premix 40 MEQ/100 ML PIGGYBACK IV.SIG PRN ×2 (16:07)
[2018-04-21] MEDS ORDERED: Potassium Chloride 25 MEQ Effervescent Tablet PO PRN (16:07)
[2018-04-21] MEDS ORDERED: Potassium Phosphate 500 MG Soluble Tablet PO PRN ×2 (16:07)
[2018-04-21] MEDS ORDERED: Magnesium Sulfate Inj 4 GM in Sodium Chlor 0.9% Inj 92 ML IV.SIG PRN (16:07)
[2018-04-21] MEDS ORDERED: Magnesium Oxide 400 MG Tablet PO PRN (16:07)
[2018-04-21] MEDS ORDERED: Magnesium Sulfate Inj 2 GM in Sodium Chlor 0.9% Inj 96 ML IV.SIG PRN (16:07)
[2018-04-21] MEDS ORDERED: Potassium Phosphate Inj 30 MMOL in Sodium Chlor 0.9% Inj 250 ML IV.SIG PRN (16:07)
[2018-04-21] MEDS ORDERED: Sodium Phosphate Inj 30 MMOL in Sodium Chlor 0.9% Inj 250 ML IV.SIG PRN (16:07)
--- NOTE | 2018-04-21 16:14 | P.PN ---
Subjective Interval history: Consulted by critical care medicine for transfer care medical management. Chart reviewed. Patient seen and examined. Patient has no complaints and wants to eat. Status post ex lap with Michel patch for perforated duodenal ulcer. Patient started on amiodarone drip for rate control patient went into A. fib with RVR. Discussed with nursing, patient converted to sinus rhythm after Lopressor. Physical Exam Vital signs: Vital Signs 04/20/18 16:15 04/20/18 20:00 04/20/18 20:20 Temperature 98.3 F Pulse Rate 89 84 Respiratory Rate 16 14 Blood Pressure 117/60 Pulse Oximetry 98 99 04/20/18 22:00 04/21/18 00:00 04/21/18 02:00 Temperature 98.1 F Pulse Rate 79 82 80 Respiratory Rate 12 Blood Pressure 118/52 L Pulse Oximetry 100 04/21/18 04:00 04/21/18 06:00 04/21/18 08:00 Temperature 97.3 F L 98.1 F Pulse Rate 78 74 75 Respiratory Rate 14 16 Blood Pressure 123/60 125/60 Pulse Oximetry 97 99 04/21/18 09:15 04/21/18 10:00 04/21/18 12:00 Temperature 97.8 F Pulse Rate 77 82 79 Respiratory Rate 17 14 Blood Pressure 118/56 L Pulse Oximetry 99 97 04/21/18 14:00 04/21/18 14:51 04/21/18 16:00 Temperature Pulse Rate 79 72 85 Respiratory Rate 17 16 Blood Pressure 121/62 Pulse Oximetry 99 Intake & Output 04/20/18 04/21/18 04/21/18 18:59 06:59 18:59 Intake Total 1250 / 1250 1909 625 / 625 Output Total 850 / 850 835 / 835 Balance 400 / 400 1075 / 1075 625 / 625 Weight 63.8 kg Intake: IV 1250 / 1250 19090 625 / 625 Cordarone Inj 450 MG In D5W Inj 250 / 250 324 / 324 241 ML @ 1 MG/MIN 33.33 mls/hr IV.CONT TITRATE PRN Rx#: [id number] Protonix Inj 80 MG In NS Inj 100 / 100 100 / 100 100 / 100 100 ML @ 10 mls/hr IV.CONT CONT [facility] Rx#:[id number] NS Inj 1,000 ML @ 100 mls/hr IV 1000 / 1000 1000 / 1000 .CONT .Q10H [facility] Rx#:[id number] Cordarone Inj 150 MG In D5W Inj 100 / 100 97 ML @ 600 mls/hr IV.SIG ONCE ONE Rx#:[id number] Calcium Chloride Inj 1 GM In 110 / 110 D5W Inj 100 ML @ 110 mls/hr IV. SIG ONCE ONE Rx#:[id number] Diflucan 200 mg Premix Bag 100 100 / 100 ML @ 100 mls/hr IV.SIG Q24H [facility] Rx#:[id number] Levaquin 500 mg Premix Inj 500 100 / 100 mg In 100 ml @ 100 mls/hr IV. SIG Q24H [facility] Rx#:[id number] Magnesium Sulfate Inj 2 GM In 100 / 100 NS Inj 96 ML @ 50 mls/hr IV.SIG ONCE ONE Rx#:[id number] Zosyn 2.25 GM Premix 50 ML @ 50 / 50 150 / 150 100 / 100 100 mls/hr IV.SIG Q6H [facility] Rx#: [id number] Thiamine Inj 100 MG In NS Inj 101 / 101 100 ML @ 100 mls/hr IV.SIG DAILY [facility] Rx#:[id number] Output: Urine Amount (Catheter) 650 / 650 575 / 575 Indwelling Urethral Catheter 650 / 650 575 / 575 Gastric Drainage 200 / 200 200 / 200 Left Nare 200 / 200 200 / 200 Wound Drainage 60 / 60 # 1 Lower Anterior Medial 60 / 60 Abdomen Narrative: HEENT/Neuro: No pallor or icterus, tongue moist, DERRICK, Awake alert oriented 3 , nonfocal grossly, moving all 4 extremities Neck: No JVD Chest/pulmonary: CTA bilaterally, no wheezing Cardiovascular: S1-S2 regular rate and rhythm, no gallop or murmur GI/abdomen: Soft, nontender, bowel sounds present Extremities: Warm bilaterally, no edema - Urinary Catheter Management Indwelling Urethral Catheter Cath placed during this visit: yes Urethral indwelling: Yes Reason for continuing: Hourly intake/output Insertion date: 04/19/18 Results - Labs CBC & Chem 7: 04/21/18 11:13 04/21/18 11:13 Laboratory Results - last 24 hr 04/19/18 04/20/18 04/21/18 23:55 21:17 11:13 WBC 12.5 H RBC 3.26 L Hgb 8.0 L Hct 26.7 L MCV 81.9 MCH 24.5 L MCHC 29.9 L RDW 19.6 H Plt Count 195 MPV 7.7 Neut % (Auto) 94.3 H Lymph % (Auto) 1.7 L [place] % (Auto) 3.9 Eos % (Auto) 0.0 Baso % (Auto) 0.1 Neut # (Auto) 11.8 H Lymph # (Auto) 0.2 L [place] # (Auto) 0.5 Eos # (Auto) 0.0 Baso # (Auto) 0.0 WBC Differential . Differential Comment Auto diff final Sodium Potassium Chloride Carbon Dioxide Anion Gap BUN Creatinine Estimated GFR POC Glucose 144 H Random Glucose Calcium TSH Nasal Screen MRSA (PCR) Not detected 04/21/18 04/21/18 11:13 11:13 WBC RBC Hgb Hct MCV MCH MCHC RDW Plt Count MPV Neut % (Auto) Lymph % (Auto) [place] % (Auto) Eos % (Auto) Baso % (Auto) Neut # (Auto) Lymph # (Auto) [place] # (Auto) Eos # (Auto) Baso # (Auto) WBC Differential Differential Comment Sodium 139 Potassium 3.1 L D Chloride 105 Carbon Dioxide 26.6 Anion Gap 7 BUN 11 Creatinine 0.36 L Estimated GFR Greater than 89 POC Glucose Random Glucose 97 Calcium 9.2 D TSH 0.531 Nasal Screen MRSA (PCR) Microbiology 04/19/18 19:05 Blood - Peripheral Aerobic Blood Culture - Preliminary No growth in 2 days 04/19/18 19:05 Blood - Peripheral Anaerobic Blood Culture - Preliminary No growth in 2 days 04/19/18 19:00 Blood - Peripheral Aerobic Blood Culture - Preliminary No growth in 2 days 04/19/18 19:00 Blood - Peripheral Anaerobic Blood Culture - Preliminary No growth in 2 days - Imaging ITS Impressions Abdomen/Pelvis CT 04/19/18 16:41 CONCLUSION: 1. Free fluid or free air throughout the abdomen. I don't see an obvious etiology for it. There is no evidence of peptic ulcer disease or definite colonic wall thickening or other than some slightly narrowed loops of transverse colon in the midline. I do not see a normal or abnormal appendix 2. Gallbladder is distended. No stone or wall thickening is identified. Chest CTA 04/19/18 16:41 CONCLUSION: 1. No evidence of deep venous thrombosis. 2. Ascites in the upper abdomen and multiple small collections of free air. 3. The esophagus is prominent with air and fluid. These findings were called to [facility] the emergency room at 1852 hours. Chest X-Ray 04/19/18 16:41 CONCLUSION: Negative examination. - Procedures Exploratory laparotomy repair of perforated duodenal ulcer with Michel patch Assessment and Plan - Plan NEURO: Postoperative pain Dilaudid as needed for pain Alcohol abuse Thiamine 100 mg IV daily. Monitor for signs and symptoms of alcohol withdrawal. RESP: COPD on 2.5-3 L home O2 Ongoing tobacco abuse Tobacco cessation discussed. DuoNeb every 6 hours prn. Hold Albuterol prn due to Afib with RVR. ISq1 hour awake CTA 04/19 negative for PE. CV: Afib with RVR Monitor hemodynamics Lactic acidemia - trend Status post Lopressor 5 mg IV. Amiodarone 150 mg bolus followed by drip. Supplement magnesium, calcium. Currently RVR and discontinue amiodarone secondary to COPD. Lopressor IV. Not available IV Cardizem. TSH unremarkable. Follow-up echocardiogram. Chads 2 score of 2 she needs to be anticoagulated when cleared by general surgery. GI: Perforated duodenal ulcer s/p ex laparoscopy with Michel Patch Dr. Kelley . NGT to LIWS. Management of NG tube, EARNESTINE, and diet advancement per general surgery. Protonix drip. Short course of antibiotics for peritoneal contamination as per below, then H pylori treatment Elevated lipase - No evidence of pancreatitis on CT, may be secondary to inflammation from duodenal perf. FEN/RENAL: BALS Mild hyperkalemia, in the setting of metabolic acidosis. Follow-up BMP. 0.9 NaCl at 100 mL/h. Norris in place. Monitor intake and output. Monitor electrolytes and replace as indicated. ID: Sepsis secondary to perforated duodenal ulcer with abscess and intra-abdominal contamination. F/u blood culture. On zosyn, diflucan, levaquin for intraabdominal contamination. Anticipate short course of therapy (4-5 days). 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 No active symptoms of C diff prior to this presentation, tested to determine colonization status on admission. Will start vancomycin po 125 mg qid for C diff secondary prophylaxis given history of recurrence (ok via NGT per Dr. Kelley). Add Lactinex HEME: EBL 10 mL intraop. F/u CBC in am. Coags wnl. ENDO: Chronic prednisone use Has been on prednisone 20 mg po bid, reportedly since 03/14, due to COPD. (Has hx of SLE, not on therapy). She does not provide a detailed history of prednisone use but appears from records that she has been on prednisone ~2 months and thus is at risk for suppression of adrenal axis. Received solumedrol 125 mg IV per ED preoperatively. Will place on hydrocortisone 50 mg IV every 12 perioperatively (with dose increase if clinical symptoms). When able to take p.o, prednisone can be tapered. PROPH: SCD for DVT prophylaxis. Protonix drip as per above. ACCESS: PIV providing adequate access at this time. Discharge Planning: Transfer to medical floor when okay by general surgery
[2018-04-21] MEDS: Lactobacillus Acidophilus/L. Spores Tablet NG/OG SCH (17:40)
[2018-04-21] MEDS: Piperacil/Tazo 3.375 GM Premix 50 ML IV.SIG SCH (20:16)
[2018-04-22] MEDS: Levofloxacin 500 mg Premix Inj 500 MG/100 ML PIGGYBACK IV.SIG SCH ×2 (00:46→23:24)
[2018-04-22] MEDS: Piperacil/Tazo 3.375 GM Premix 50 ML IV.SIG SCH ×4 (01:53→20:34)
[2018-04-22] MEDS: Sod Chloride 0.9% Inj 1,000 ML IV.CONT SCH ×3 (07:32→18:10)
[2018-04-22 08:59] LABS: Hematocrit 24.4 % (35.0-46.0); Hemoglobin 7.4 gm/dL (11.6-15.3); Lymph # (Auto) 0.3 th/mm3 (1.0-4.8); Lymph % (Auto) 2.9 % (9.0-44.0); Mean Corpuscular Hemoglobin 25.1 pg (27.0-34.0); Mean Corpuscular Volume 82.3 fL (80.0-100.0); Mean Platelet Volume 7.7 fL (7.0-11.0); Mono # (Auto) 0.5 th/mm3 (0.0-0.9); Mono % (Auto) 5.1 % (0.0-8.0); Neut # (Auto) 9.8 th/mm3 (1.8-7.7); Platelet Count 165 th/mm3 (150-450); Red Blood Count 2.97 mil/mm3 (4.00-5.30); Red Cell Distribution Width 19.5 % (11.6-17.2); White Blood Count 10.7 th/mm3 (4.0-11.0)
[2018-04-22 09:02] LABS: Mean Corpuscular HGB Conc 30.5 % (32.0-36.0)
[2018-04-22 09:32] LABS: Alanine Aminotransferase 18 U/L (10-53); Albumin 1.8 g/dL (3.4-5.0); Alkaline Phosphatase 63 U/L (45-117); Anion Gap 9 meq/L (5-15); Aspartate Aminotransferase 21 U/L (15-37); Blood Urea Nitrogen 6 mg/dL (7-18); Calcium 8.7 mg/dL (8.5-10.1); Carbon Dioxide 26.5 meq/L (21.0-32.0); Chloride 106 meq/L (98-107); Glomerular Filtration Rate Greater Than 89 mL/min (>89); Glucose,Random 97 mg/dL (74-106); Magnesium 1.5 mg/dL (1.5-2.5); Phosphorus 1.5 mg/dL (2.5-4.9); Sodium 141 meq/L (136-145); Total Protein 5.3 g/dL (6.4-8.2)
[2018-04-22 09:52] LABS: Potassium 2.8 meq/L (3.5-5.1)
[2018-04-22] MEDS ORDERED: Sodium Chlor 0.9% Inj 250 ML IV.SIG SCH (10:00)
[2018-04-22 10:06] LABS: Lymphocytes 2 % (9-44); Monocytes 2 % (0-8); Platelet Estimate Normal (Normal); Platelet Morphology Normal (Normal); Target Cells 1+
[2018-04-22] MEDS: Senna/Docusate Sodium 8.6/50 MG Tablet PO SCH ×2 (10:24→20:34)
[2018-04-22] MEDS: Thiamine Inj 100 MG in Sodium Chlor 0.9% Inj 100 ML IV.SIG SCH (10:28)
[2018-04-22] MEDS: Hydrocortisone Sod Succinate 100 MG Vial IV.PUSH SCH ×2 (10:29→20:33)
[2018-04-22] MEDS: Lactobacillus Acidophilus/L. Spores Tablet NG/OG SCH ×3 (10:39→18:27)
--- NOTE | 2018-04-22 13:34 | P.PN ---
Subjective Interval history: Follow-up A. fib and perforated duodenal ulcer status post repair. Patient overall doing okay telemetry shows sinus rhythm off amiodarone drip yesterday. Did not require IV Lopressor. Patient tolerating liquid diet. States she is passing gas no BM. Discussed with nursing discontinue Norris catheter Physical Exam Vital signs: Vital Signs 04/21/18 14:00 04/21/18 14:51 04/21/18 16:00 Temperature Pulse Rate 79 72 85 Respiratory Rate 17 16 Blood Pressure 121/62 Pulse Oximetry 99 04/21/18 18:00 04/21/18 20:00 04/21/18 20:59 Temperature 98.2 F Pulse Rate 90 97 H 95 H Respiratory Rate 14 16 Blood Pressure 123/60 Pulse Oximetry 99 100 04/21/18 22:00 04/22/18 00:00 04/22/18 02:00 Temperature 98 F Pulse Rate 95 H 89 94 H Respiratory Rate 14 Blood Pressure 124/61 Pulse Oximetry 100 04/22/18 03:39 04/22/18 04:00 04/22/18 06:00 Temperature 98 F Pulse Rate 96 H 84 85 Respiratory Rate 16 13 Blood Pressure 132/60 Pulse Oximetry 100 04/22/18 08:00 04/22/18 10:00 04/22/18 10:14 Temperature Pulse Rate 88 90 88 Respiratory Rate 18 Blood Pressure Pulse Oximetry 99 04/22/18 12:00 Temperature Pulse Rate 93 H Respiratory Rate Blood Pressure Pulse Oximetry Intake & Output 04/21/18 04/22/18 04/22/18 18:59 06:59 18:59 Intake Total 2085 / 2085 300 / 300 Output Total 625 / 625 945 / 945 Balance 1460 / 1460 -645 / -645 Weight 61.2 kg Intake: IV 1725 / 1725 300 / 300 Cordarone Inj 450 MG In D5W Inj 324 / 324 241 ML @ 1 MG/MIN 33.33 mls/hr IV.CONT TITRATE PRN Rx#: [id number] Protonix Inj 80 MG In NS Inj 100 / 100 100 ML @ 10 mls/hr IV.CONT CONT [facility] Rx#:[id number] NS Inj 1,000 ML @ 100 mls/hr IV 1000 / 1000 .CONT .Q10H [facility] Rx#:[id number] Diflucan 200 mg Premix Bag 100 100 / 100 ML @ 100 mls/hr IV.SIG Q24H [facility] Rx#:[id number] Levaquin 500 mg Premix Inj 500 100 / 100 mg In 100 ml @ 100 mls/hr IV. SIG Q24H [facility] Rx#:[id number] Zosyn 2.25 GM Premix 50 ML @ 100 / 100 100 mls/hr IV.SIG Q6H [facility] Rx#: [id number] Zosyn 3.375 GM Premix 50 ML @ 100 / 100 100 mls/hr IV.SIG Q6H [facility] Rx#: [id number] KCl 20 mEq Premix Inj 20 meq In 100 / 100 100 ml @ 50 mls/hr IV.SIG Q2H [facility] Rx#:[id number] Thiamine Inj 100 MG In NS Inj 101 / 101 100 ML @ 100 mls/hr IV.SIG DAILY [facility] Rx#:[id number] Oral 360 / 360 Output: Urine Amount (Catheter) 550 / 550 875 / 875 Indwelling Urethral Catheter 550 / 550 875 / 875 Gastric Drainage 0 / 0 Left Nare 0 / 0 Wound Drainage 75 / 75 70 / 70 # 1 Lower Anterior Medial 75 / 75 70 / 70 Abdomen Other: # Bowel Movements 0 Narrative: HEENT/Neuro: No pallor or icterus, tongue moist, DERRICK, Awake alert oriented 3 , nonfocal grossly, moving all [address] Neck: No JVD Chest/pulmonary: CTA bilaterally, no wheezing Cardiovascular: S1-S2 regular rate and rhythm, no gallop or murmur GI/abdomen: Soft, nontender, bowel sounds present Extremities: Warm bilaterally, no edema - Urinary Catheter Management Indwelling Urethral Catheter Cath placed during this visit: yes Urethral indwelling: Yes Reason for continuing: Hourly intake/output Insertion date: 04/19/18 Results - Labs CBC & Chem 7: 04/22/18 08:30 04/22/18 08:30 Laboratory Results - last 24 hr 04/21/18 04/22/18 04/22/18 11:13 08:30 08:30 WBC 10.7 RBC 2.97 L Hgb 7.4 L Hct 24.4 L MCV 82.3 MCH 25.1 L MCHC 30.5 L RDW 19.5 H Plt Count 165 MPV 7.7 Prelim Diff (Auto) Slide review pending Neut % (Auto) 92.0 H Lymph % (Auto) 2.9 L [place] % (Auto) 5.1 Eos % (Auto) 0.0 Baso % (Auto) 0.0 Neut # (Auto) 9.8 H Lymph # (Auto) 0.3 L [place] # (Auto) 0.5 Eos # (Auto) 0.0 Baso # (Auto) 0.0 WBC Differential Manual diff final Seg Neuts % (Manual) 86 H Band Neuts % (Manual) 10 H Lymphocytes % (Manual) 2 L Monocytes % (Manual) 2 Abs Neuts (Manual) 10.3 H Differential Comment . Platelet Estimate Normal Platelet Morphology Normal Target Cells 1+ H Sodium 141 Potassium 2.8 L* Chloride 106 Carbon Dioxide 26.5 Anion Gap 9 BUN 6 L Creatinine 0.24 L Estimated GFR Greater than 89 Random Glucose 97 Calcium 8.7 Phosphorus 1.5 L Magnesium 1.8 1.5 Total Bilirubin 0.3 AST 21 ALT 18 Alkaline Phosphatase 63 Total Protein 5.3 L Albumin 1.8 L Blood Type Blood Type Recheck Antibody Screen MTS Gel Crossmatch 04/22/18 10:12 WBC RBC Hgb Hct MCV MCH MCHC RDW Plt Count MPV Prelim Diff (Auto) Neut % (Auto) Lymph % (Auto) [place] % (Auto) Eos % (Auto) Baso % (Auto) Neut # (Auto) Lymph # (Auto) [place] # (Auto) Eos # (Auto) Baso # (Auto) WBC Differential Seg Neuts % (Manual) Band Neuts % (Manual) Lymphocytes % (Manual) Monocytes % (Manual) Abs Neuts (Manual) Differential Comment Platelet Estimate Platelet Morphology Target Cells Sodium Potassium Chloride Carbon Dioxide Anion Gap BUN Creatinine Estimated GFR Random Glucose Calcium Phosphorus Magnesium Total Bilirubin AST ALT Alkaline Phosphatase Total Protein Albumin Blood Type O Positive Blood Type Recheck Required Antibody Screen Negative MTS Gel Crossmatch See Detail Microbiology 04/19/18 19:05 Blood - Peripheral Aerobic Blood Culture - Preliminary No growth in 3 days 04/19/18 19:05 Blood - Peripheral Anaerobic Blood Culture - Preliminary No growth in 3 days 04/19/18 19:00 Blood - Peripheral Aerobic Blood Culture - Preliminary No growth in 3 days 04/19/18 19:00 Blood - Peripheral Anaerobic Blood Culture - Preliminary No growth in 3 days - Procedures Exploratory laparotomy repair of perforated duodenal ulcer with Michel patch Assessment and Plan - Plan NEURO: Postoperative pain Dilaudid as needed for pain Alcohol abuse Thiamine 100 mg IV daily. Monitor for signs and symptoms of alcohol withdrawal. RESP: COPD on 2.5-3 L home O2 Ongoing tobacco abuse Tobacco cessation discussed. DuoNeb every 6 hours prn. Hold Albuterol prn due to Afib with RVR. ISq1 hour awake CTA 04/19 negative for PE. CV: Afib with RVR Monitor hemodynamics Lactic acidemia - trend Status post Lopressor 5 mg IV. Amiodarone 150 mg bolus followed by drip. Supplement magnesium, calcium. Currently RVR and discontinued amiodarone secondary to COPD. Lopressor IV prn. IV Cardizem not available. TSH unremarkable. Follow-up echocardiogram. Chads 2 score of 2 she needs to be anticoagulated when cleared by general surgery. GI: Perforated duodenal ulcer s/p ex laparoscopy with Michel Patch Dr. Kelley . Clamped NGT. Management of NG tube, EARNESTINE, and diet advancement per general surgery. Currently on clears Protonix drip. Short course of antibiotics for peritoneal contamination as per below, then H pylori treatment Elevated lipase - No evidence of pancreatitis on CT, may be secondary to inflammation from duodenal perf. FEN/RENAL: BLAS Hypokalemia Monitor intake and output. Monitor electrolytes and replace as indicated. Aggressive electrolyte replacement Discontinue Norris. ID: Sepsis secondary to perforated duodenal ulcer with abscess and intra-abdominal contamination. F/u blood culture negative to date. On zosyn, diflucan, levaquin since April 20 for intraabdominal contamination. Anticipate short course of therapy (4-5 days). 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 No active symptoms of C diff prior to this presentation, tested to determine colonization status on admission. Will ct vancomycin po 125 mg qid for C diff secondary prophylaxis given history of recurrence (ok via NGT per Dr. Kelley). Added Lactinex HEME: EBL 10 mL intraop. F/u CBC in am. Coags wnl. ENDO: Chronic prednisone use Has been on prednisone 20 mg po bid, reportedly since 03/14, due to COPD. (Has hx of SLE, not on therapy). She does not provide a detailed history of prednisone use but appears from records that she has been on prednisone ~2 months and thus is at risk for suppression of adrenal axis. Received solumedrol 125 mg IV per ED preoperatively. Ct hydrocortisone but will start weaning decrease to 25 mg IV every 12 . When able to take p.o, prednisone can be tapered. PROPH: SCD for DVT prophylaxis. Protonix drip as per above. ACCESS: PIV providing adequate access at this time. Discharge Planning: Transfer to medical floor
--- NOTE | 2018-04-22 13:39 | P.PNGS ---
Subjective Interval history: DAILY PROGRESS NOTE FOR SURGICAL ATTENDING, DR. MITRA LOPEZ Up to chair Wants real food Reports no flatus Physical Exam Vital signs: Vital Signs 04/21/18 14:00 04/21/18 14:51 04/21/18 16:00 Temperature Pulse Rate 79 72 85 Respiratory Rate 17 16 Blood Pressure 121/62 Pulse Oximetry 99 04/21/18 18:00 04/21/18 20:00 04/21/18 20:59 Temperature 98.2 F Pulse Rate 90 97 H 95 H Respiratory Rate 14 16 Blood Pressure 123/60 Pulse Oximetry 99 100 04/21/18 22:00 04/22/18 00:00 04/22/18 02:00 Temperature 98 F Pulse Rate 95 H 89 94 H Respiratory Rate 14 Blood Pressure 124/61 Pulse Oximetry 100 04/22/18 03:39 04/22/18 04:00 04/22/18 06:00 Temperature 98 F Pulse Rate 96 H 84 85 Respiratory Rate 16 13 Blood Pressure 132/60 Pulse Oximetry 100 04/22/18 08:00 04/22/18 10:00 04/22/18 10:14 Temperature Pulse Rate 88 90 88 Respiratory Rate 18 Blood Pressure Pulse Oximetry 99 04/22/18 12:00 Temperature Pulse Rate 93 H Respiratory Rate Blood Pressure Pulse Oximetry Intake & Output 04/21/18 04/22/18 04/22/18 18:59 06:59 18:59 Intake Total 2085 / 2085 300 / 300 Output Total 625 / 625 945 / 945 Balance 1460 / 1460 -645 / -645 Weight 61.2 kg Intake: IV 1725 / 1725 300 / 300 Cordarone Inj 450 MG In D5W Inj 324 / 324 241 ML @ 1 MG/MIN 33.33 mls/hr IV.CONT TITRATE PRN Rx#: [id number] Protonix Inj 80 MG In NS Inj 100 / 100 100 ML @ 10 mls/hr IV.CONT CONT [facility] Rx#:[id number] NS Inj 1,000 ML @ 100 mls/hr IV 1000 / 1000 .CONT .Q10H [facility] Rx#:[id number] Diflucan 200 mg Premix Bag 100 100 / 100 ML @ 100 mls/hr IV.SIG Q24H [facility] Rx#:[id number] Levaquin 500 mg Premix Inj 500 100 / 100 mg In 100 ml @ 100 mls/hr IV. SIG Q24H [facility] Rx#:[id number] Zosyn 2.25 GM Premix 50 ML @ 100 / 100 100 mls/hr IV.SIG Q6H [facility] Rx#: [id number] Zosyn 3.375 GM Premix 50 ML @ 100 / 100 100 mls/hr IV.SIG Q6H [facility] Rx#: [id number] KCl 20 mEq Premix Inj 20 meq In 100 / 100 100 ml @ 50 mls/hr IV.SIG Q2H [facility] Rx#:[id number] Thiamine Inj 100 MG In NS Inj 101 / 101 100 ML @ 100 mls/hr IV.SIG DAILY [facility] Rx#:[id number] Oral 360 / 360 Output: Urine Amount (Catheter) 550 / 550 875 / 875 Indwelling Urethral Catheter 550 / 550 875 / 875 Gastric Drainage 0 / 0 Left Nare 0 / 0 Wound Drainage 75 / 75 70 / 70 # 1 Lower Anterior Medial 75 / 75 70 / 70 Abdomen Other: # Bowel Movements 0 Narrative: Alert and awake Cardiac: RRR Resp: CTAB Abd: mildly distended; incision sites c/d/i; EARNESTINE with minimal serous fluid NG tube clamped for 24 hours Had a small bowel movement Would like more to eat - Urinary Catheter Management Indwelling Urethral Catheter Cath placed during this visit: yes Urethral indwelling: Yes Reason for continuing: Hourly intake/output Insertion date: 04/19/18 Assessment and Plan - Assessment (1) Duodenal ulcer with perforation Code(s): K26.5 - Chronic or unspecified duodenal ulcer with perforation Status : Acute (2) Atrial fibrillation with RVR Code(s): I48.91 - Unspecified atrial fibrillation Status: Acute Onset Date: ~04/20/18 (3) Free intraperitoneal air Code(s): K66.8 - Other specified disorders of peritoneum Status: Acute Plan: 67 year old female POD1 lap repair of perforated duodenal ulcer -Continue to keep NGT clamped -Continue clear liquids until bowel function returns -Continue routine EARNESTINE drain care -Went into afib with RVR ---HR now controlled -Replace K -Continue IV antibiotics -Okay to transfer to from GS standpoint (4) History of peptic ulcer disease Code(s): Z87.11 - Personal history of peptic ulcer disease Status: Chronic (5) Alcohol use Code(s): Z78.9 - Other specified health status Status: Chronic (6) Tobacco use Code(s): Z72.0 - Tobacco use Status: Chronic (7) Diabetes Code(s): E11.9 - Type 2 diabetes mellitus without complications Status: Chronic (8) Asthma exacerbation in COPD Code(s): J44.1 - Chronic obstructive pulmonary disease with (acute) exacerbation ; J45.901 - Unspecified asthma with (acute) exacerbation Status: Chronic (9) Current chronic use of systemic steroids Code(s): Z79.52 - [facility] (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 MITRA LOPEZ Okay to pull NG tube Advance diet Okay to transfer to floor Begin transitioning to p.o. medication I agree with above assessment and plan. The exam, history, and the medical decision-making described in the above note were completed with the assistance of the mid-level provider. I reviewed and agree with the findings presented. I attest that I had a [id number] encounter with the patient on the same day, and personally performed and documented my assessment and findings in the medical record. The following services were provided during this hospital visit: Chart data review, vital sign assessments/reviewing monitor data Review of consultations notes if present. Medication orders/review and/or management Ordering and/or reviewing lab tests Ordering and/or interpreting/reviewing x-rays and/or diagnostic studies Care of the patient and discussion of the patient with the care team Documentation time To help prompt me to consider important information that might be impacting today's encounter and assessment, Information from prior notes written by myself or my colleagues may have been "brought forward/copy and pasted" into today's note. (7) Diabetes Qualifiers: Diabetes mellitus type: type 2 Diabetes mellitus complication status: with hyperglycemia
[2018-04-22] MEDS: Pantoprazole Inj 80 MG in Sodium Chlor 0.9% Inj 100 ML IV.CONT SCH (14:32)
[2018-04-22] MEDS: Potassium Chlor 20 mEq Premix 20 MEQ/100 ML PIGGYBACK IV.SIG PRN ×2 (14:33→19:47)
--- NOTE | 2018-04-22 14:58 | ECHRPT ---
Indication: Atrial Fib and Flutter CONCLUSIONS Normal left ventricular size and wall thickness. The left ventricular systolic function is normal wi th an estimated ejection fraction in the range of 60-65%. No regional wall motion abnormalities are prese nt. Mild mitral valve regurgitation. Trileaflet aortic valve. Minimal aortic leaflet sclerosis. Moderate aortic valve regurgitation. There is mild tricuspid valve regurgitation. The estimated pulmonary arterial pressure is 48 mmHg. BP: / HR: Rhythm: MEASUREMENTS (Male / Female) Normal Values Technical Quality:Fair 2D ECHO LV Diastolic Diameter PLAX 4.5 cm 4.2 - 5.9 / 3.9 - 5.3 cm LV Systolic Diameter PLAX 3.0 cm IVS Diastolic Thickness 0.9 cm 0.6 - 1.0 / 0.6 - 0.9 cm LVPW Diastolic Thickness 1.0 cm 0.6 - 1.0 / 0.6 - 0.9 cm LV Relative Wall Thickness 0.4 RV Internal Dim ED PLAX 2.2 cm LVOT Diameter 1.9 cm Aortic Root Diameter 2.3 cm LA Systolic Diameter LX 2.9 cm 3.0 - 4.0 / 2.7 - 3.8 cm M-MODE AV Cusp Separation MM 1.8 cm DOPPLER AV Peak Velocity 197.5 cm/s AV Peak Gradient 15.6 mmHg AI Peak Velocity 374.0 cm/s AI Peak Gradient 56.0 mmHg AI Pressure Half Time 274.0 ms LVOT Peak Velocity 154.0 cm/s LVOT Peak Gradient 9.5 mmHg AV Area Cont Eq pk 2.2 cm Mitral E Point Velocity 79.6 cm/s Mitral A Point Velocity 128.0 cm/s Mitral E to A Ratio 0.6 LV E' Lateral Velocity 13.3 cm/s Mitral E to LV E' Lateral Ratio 6.0 LV E' Septal Velocity 10.5 cm/s Mitral E to LV E' Septal Ratio 7.6 TR Peak Velocity 333.0 cm/s TR Peak Gradient 44.4 mmHg Right Atrial Pressure 10.0 mmHg Pulmonary Artery Systolic Pressu 54.4 mmHg Right Ventricular Systolic Press 54.4 mmHg PV Peak Velocity 56.1 cm/s PV Peak Gradient 1.3 mmHg FINDINGS LEFT VENTRICLE Normal left ventricular size and wall thickness. The left ventricular systolic function is normal wi th an estimated ejection fraction in the range of 60-65%. No regional wall motion abnormalities are prese nt. RIGHT VENTRICLE Normal right ventricular size and systolic function. LEFT ATRIUM The left atrial size is normal. RIGHT ATRIUM The right atrial size is normal. ATRIAL SEPTUM Normal atrial septal thickness without atrial level shunting by limited color doppler interrogation. AORTA The aortic root and proximal ascending aorta are normal in size on limited imaging. MITRAL VALVE Mild mitral valve regurgitation. AORTIC VALVE Trileaflet aortic valve. Minimal aortic leaflet sclerosis. Moderate aortic valve regurgitation. TRICUSPID VALVE There is mild tricuspid valve regurgitation. The estimated pulmonary arterial pressure is 48 mmHg. PULMONARY VALVE No pulmonary valve regurgitation or stenosis. VESSELS The inferior vena cava is normal in size. PERICARDIUM No pericardial effusion. Carlos Granados MD (Electronically Signed) Final Date:22 April 2018 14:57
[2018-04-23] MEDS: Potassium Chlor 20 mEq Premix 20 MEQ/100 ML PIGGYBACK IV.SIG PRN ×5 (00:30→14:47)
[2018-04-23] MEDS: Pantoprazole Inj 80 MG in Sodium Chlor 0.9% Inj 100 ML IV.CONT SCH ×2 (00:39→12:44)
[2018-04-23] MEDS: Piperacil/Tazo 3.375 GM Premix 50 ML IV.SIG SCH ×2 (01:23→23:19)
[2018-04-23] MEDS: Sod Chloride 0.9% Inj 1,000 ML IV.CONT SCH ×4 (05:53→23:32)
[2018-04-23 06:36] LABS: Baso % (Auto) 0.2 % (0.0-2.0); Hemoglobin 8.8 gm/dL (11.6-15.3); Lymph # (Auto) 0.3 th/mm3 (1.0-4.8); Lymph % (Auto) 3.4 % (9.0-44.0); Mean Corpuscular HGB Conc 32.6 % (32.0-36.0); Mean Corpuscular Hemoglobin 25.8 pg (27.0-34.0); Mean Corpuscular Volume 79.3 fL (80.0-100.0); Mean Platelet Volume 7.6 fL (7.0-11.0); Mono # (Auto) 0.8 th/mm3 (0.0-0.9); Mono % (Auto) 8.5 % (0.0-8.0); Neut % (Auto) 87.9 % (16.0-70.0); Platelet Count 163 th/mm3 (150-450); Red Cell Distribution Width 18.5 % (11.6-17.2); White Blood Count 9.1 th/mm3 (4.0-11.0)
[2018-04-23 07:08] LABS: Anion Gap 10 meq/L (5-15); Blood Urea Nitrogen 4 mg/dL (7-18); Calcium 8.5 mg/dL (8.5-10.1); Carbon Dioxide 28.4 meq/L (21.0-32.0); Chloride 104 meq/L (98-107); Glomerular Filtration Rate Greater Than 89 mL/min (>89); Glucose,Random 108 mg/dL (74-106); Magnesium 1.7 mg/dL (1.5-2.5); Potassium 3.1 meq/L (3.5-5.1); Sodium 142 meq/L (136-145)
[2018-04-23] MEDS: Hydrocortisone Sod Succinate 100 MG Vial IV.PUSH SCH (09:00)
[2018-04-23] MEDS: Lactobacillus Acidophilus/L. Spores Tablet NG/OG SCH ×3 (09:00→18:04)
[2018-04-23] MEDS: Senna/Docusate Sodium 8.6/50 MG Tablet PO SCH ×2 (09:00→20:39)
[2018-04-23] MEDS: Thiamine Inj 100 MG in Sodium Chlor 0.9% Inj 100 ML IV.SIG SCH (09:00)
--- NOTE | 2018-04-23 13:28 | P.PNGS ---
Subjective Interval history: DAILY PROGRESS NOTE FOR SURGICAL ATTENDING, DR. MITRA LOPEZ Up to chair Requested pureed food because of lack of teeth Physical Exam Vital signs: Vital Signs 04/22/18 14:00 04/22/18 15:33 04/22/18 15:45 Temperature 98.0 F 98.1 F Pulse Rate 90 90 94 H Respiratory Rate 14 16 Blood Pressure 143/67 H 142/67 H Pulse Oximetry 100 100 04/22/18 16:00 04/22/18 16:38 04/22/18 18:00 Temperature 97.8 F Pulse Rate 88 82 91 H Respiratory Rate 21 18 Blood Pressure 141/69 H Pulse Oximetry 04/22/18 19:49 04/22/18 20:00 04/22/18 20:16 Temperature 98.8 F 98.8 F Pulse Rate 96 H 98 H 88 Respiratory Rate 25 H 20 18 Blood Pressure 138/66 136/66 Pulse Oximetry 100 96 97 04/22/18 22:00 04/23/18 00:00 04/23/18 02:00 Temperature Pulse Rate 88 79 82 Respiratory Rate 11 L Blood Pressure 156/75 H Pulse Oximetry 100 04/23/18 04:00 04/23/18 06:00 04/23/18 08:00 Temperature Pulse Rate 79 80 81 Respiratory Rate 11 L 20 Blood Pressure 156/75 H Pulse Oximetry 100 04/23/18 10:00 04/23/18 12:00 Temperature Pulse Rate 84 86 Respiratory Rate Blood Pressure Pulse Oximetry Intake & Output 04/22/18 04/23/18 04/23/18 18:59 06:59 18:59 Intake Total 1001 / 1001 1680 / 1680 200 / 200 Output Total 1150 / 1150 70 / 70 Balance -149 / -149 1610 / 1610 200 / 200 Intake: IV 641 / 641 800 / 800 200 / 200 Protonix Inj 80 MG In NS Inj 100 / 100 100 / 100 100 ML @ 10 mls/hr IV.CONT CONT [facility] Rx#:[id number] NS Inj 1,000 ML @ 100 mls/hr IV 440 / 440 .CONT .Q10H [facility] Rx#:[id number] Diflucan 200 mg Premix Bag 100 100 / 100 ML @ 100 mls/hr IV.SIG Q24H [facility] Rx#:[id number] Levaquin 500 mg Premix Inj 500 100 / 100 mg In 100 ml @ 100 mls/hr IV. SIG Q24H [facility] Rx#:[id number] Zosyn 3.375 GM Premix 50 ML @ 100 / 100 100 / 100 100 mls/hr IV.SIG Q6H [facility] Rx#: [id number] KCl 20 mEq Premix Inj 20 meq In 400 / 400 100 / 100 100 ml @ 50 mls/hr IV.SIG Q2H PRN Rx#:[id number] Thiamine Inj 100 MG In NS Inj 101 / 101 100 ML @ 100 mls/hr IV.SIG DAILY [facility] Rx#:[id number] Oral 360 / 360 480 / 480 Intake (Blood Product) Amt 0 / 0 400 / 400 Rbc As-3 Leukoreduced Unit 0 / 0 400 / 400 [id number] Output: Urine Amount (Catheter) 1099 / 1099 Indwelling Urethral Catheter 1099 / 1099 Wound Drainage 50 / 50 70 / 70 # 1 Lower Anterior Medial 50 / 50 70 / 70 Abdomen Other: # Voids 1 Date of Last Bowel Movement 04/22/18 04/22/18 04/23/18 # Bowel Movements 2 0 Narrative: Alert and awake Abd: soft; non tender; incision c/d/i; EARNESTINE with SS drainage - Urinary Catheter Management Indwelling Urethral Catheter Cath placed during this visit: yes Urethral indwelling: Yes Reason for continuing: Hourly intake/output Insertion date: 04/19/18 Assessment and Plan - Assessment (1) Duodenal ulcer with perforation Code(s): K26.5 - Chronic or unspecified duodenal ulcer with perforation Status : Acute (2) Atrial fibrillation with RVR Code(s): I48.91 - Unspecified atrial fibrillation Status: Acute Onset Date: ~04/20/18 (3) Free intraperitoneal air Code(s): K66.8 - Other specified disorders of peritoneum Status: Acute Plan: 67 year old female s/p lap repair of perforated duodenal ulcer -Regular pureed diet -Continue routine EARNESTINE drain care -Went into afib with RVR ---HR now controlled -Replace K -Transition to PO antibiotics -DC IVF -Okay to transfer to 7N from GS standpoint (4) History of peptic ulcer disease Code(s): Z87.11 - Personal history of peptic ulcer disease Status: Chronic (5) Alcohol use Code(s): Z78.9 - Other specified health status Status: Chronic (6) Tobacco use Code(s): Z72.0 - Tobacco use Status: Chronic (7) Diabetes Code(s): E11.9 - Type 2 diabetes mellitus without complications Status: Chronic (8) Asthma exacerbation in COPD Code(s): J44.1 - Chronic obstructive pulmonary disease with (acute) exacerbation ; J45.901 - Unspecified asthma with (acute) exacerbation Status: Chronic (9) Current chronic use of systemic steroids 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 MITRA LOPEZ I agree with above assessment and plan. The exam, history, and the medical decision-making described in the above note were completed with the assistance of the mid-level provider. I reviewed and agree with the findings presented. I attest that I had a [id number] encounter with the patient on the same day, and personally performed and documented my assessment and findings in the medical record. The following services were provided during this hospital visit: Chart data review, vital sign assessments/reviewing monitor data Review of consultations notes if present. Medication orders/review and/or management Ordering and/or reviewing lab tests Ordering and/or interpreting/reviewing x-rays and/or diagnostic studies Care of the patient and discussion of the patient with the care team Documentation time To help prompt me to consider important information that might be impacting today's encounter and assessment, Information from prior notes written by myself or my colleagues may have been "brought forward/copy and pasted" into today's note. (7) Diabetes Qualifiers: Diabetes mellitus type: type 2 Diabetes mellitus complication status: with hyperglycemia
[2018-04-23] MEDS: Pantoprazole Inj 40 MG Vial IV.PUSH SCH ×2 (14:48→20:18)
--- NOTE | 2018-04-23 15:27 | P.PNIM ---
Subjective Interval history: Patient reports she is feeling tired otherwise no new complaints. Physical Exam Vital signs: Vital Signs 04/22/18 15:33 04/22/18 15:45 04/22/18 16:00 Temperature 98.0 F 98.1 F 97.8 F Pulse Rate 90 94 H 88 Respiratory Rate 14 16 21 Blood Pressure 143/67 H 142/67 H 141/69 H Pulse Oximetry 100 100 04/22/18 16:38 04/22/18 18:00 04/22/18 19:49 Temperature 98.8 F Pulse Rate 82 91 H 96 H Respiratory Rate 18 25 H Blood Pressure 138/66 Pulse Oximetry 100 04/22/18 20:00 04/22/18 20:16 04/22/18 22:00 Temperature 98.8 F Pulse Rate 98 H 88 88 Respiratory Rate 20 18 Blood Pressure 136/66 Pulse Oximetry 96 97 04/23/18 00:00 04/23/18 02:00 04/23/18 04:00 Temperature Pulse Rate 79 82 79 Respiratory Rate 11 L 11 L Blood Pressure 156/75 H 156/75 H Pulse Oximetry 100 100 04/23/18 06:00 04/23/18 08:00 04/23/18 10:00 Temperature Pulse Rate 80 81 84 Respiratory Rate 20 Blood Pressure Pulse Oximetry 04/23/18 12:00 Temperature Pulse Rate 86 Respiratory Rate Blood Pressure Pulse Oximetry Intake & Output 04/22/18 04/23/18 04/23/18 18:59 06:59 18:59 Intake Total 1001 / 1001 1680 / 1680 300 / 300 Output Total 1150 / 1150 70 / 70 Balance -149 / -149 1610 / 1610 300 / 300 Intake: IV 641 / 641 800 / 800 300 / 300 Protonix Inj 80 MG In NS Inj 100 / 100 100 / 100 100 ML @ 10 mls/hr IV.CONT CONT [facility] Rx#:[id number] NS Inj 1,000 ML @ 100 mls/hr IV 440 / 440 .CONT .Q10H [facility] Rx#:[id number] Diflucan 200 mg Premix Bag 100 100 / 100 ML @ 100 mls/hr IV.SIG Q24H [facility] Rx#:[id number] Levaquin 500 mg Premix Inj 500 100 / 100 mg In 100 ml @ 100 mls/hr IV. SIG Q24H [facility] Rx#:[id number] Zosyn 3.375 GM Premix 50 ML @ 100 / 100 100 / 100 100 mls/hr IV.SIG Q6H [facility] Rx#: [id number] KCl 20 mEq Premix Inj 20 meq In 400 / 400 200 / 200 100 ml @ 50 mls/hr IV.SIG Q2H PRN Rx#:[id number] Thiamine Inj 100 MG In NS Inj 101 / 101 100 ML @ 100 mls/hr IV.SIG DAILY [facility] Rx#:[id number] Oral 360 / 360 480 / 480 Intake (Blood Product) Amt 0 / 0 400 / 400 Rbc As-3 Leukoreduced Unit 0 / 0 400 / 400 [id number] Output: Urine Amount (Catheter) 1100 / 1100 Indwelling Urethral Catheter 1100 / 1100 Wound Drainage 50 / 50 70 / 70 # 1 Lower Anterior Medial 50 / 50 70 / 70 Abdomen Other: # Voids 1 Date of Last Bowel Movement 04/22/18 04/22/18 04/23/18 # Bowel Movements 2 0 Narrative: GENERAL: Elderly female in no acute distress CARDIOVASCULAR: Normal rate and regular rhythm without murmurs, gallops, or rubs. RESPIRATORY: Good respiratory efforts. Breath sounds equal and clear to auscultation bilaterally. GASTROINTESTINAL: Abdomen soft, incision clean and dry. EARNESTINE drain in place. MUSCULOSKELETAL: Extremities without cyanosis, or edema. NEURO: Alert & Oriented x4 to person, place, time, situation. Moves all ext x4 PSYCH: Appropriate mood and affect. - Urinary Catheter Management Indwelling Urethral Catheter Cath placed during this visit: yes Urethral indwelling: Yes Reason for continuing: Hourly intake/output Insertion date: 04/19/18 Results - Labs CBC & Chem 7: 04/23/18 06:21 04/23/18 06:21 Laboratory Results - last 24 hr 04/22/18 04/23/18 04/23/18 10:12 06:21 06:21 WBC 9.1 RBC 3.40 L Hgb 8.8 L Hct 27.0 L MCV 79.3 L MCH 25.8 L MCHC 32.6 RDW 18.5 H Plt Count 163 MPV 7.6 Neut % (Auto) 87.9 H Lymph % (Auto) 3.4 L [place] % (Auto) 8.5 H Eos % (Auto) 0.0 Baso % (Auto) 0.2 Neut # (Auto) 8.0 H Lymph # (Auto) 0.3 L [place] # (Auto) 0.8 Eos # (Auto) 0.0 Baso # (Auto) 0.0 WBC Differential . Differential Comment Auto diff final Sodium 142 Potassium 3.1 L Chloride 104 Carbon Dioxide 28.4 Anion Gap 10 BUN 4 L Creatinine 0.23 L Estimated GFR Greater than 89 Random Glucose 108 H Calcium 8.5 Magnesium 1.7 Blood Type O Positive Blood Type Recheck Required Antibody Screen Negative MTS Gel Crossmatch See Detail Microbiology 04/19/18 19:05 Blood - Peripheral Aerobic Blood Culture - Preliminary No growth in 4 days 04/19/18 19:05 Blood - Peripheral Anaerobic Blood Culture - Preliminary No growth in 4 days 04/19/18 19:00 Blood - Peripheral Aerobic Blood Culture - Preliminary No growth in 4 days 04/19/18 19:00 Blood - Peripheral Anaerobic Blood Culture - Preliminary No growth in 4 days - Procedures Exploratory laparotomy repair of perforated duodenal ulcer with Michel patch Assessment and Plan - Plan 67-year-old female with perforated duodenal ulcer: Perforated duodenal ulcer s/p ex laparoscopy with Michel Patch Dr. Kelley . Progressing well. General surgery following. Diet as tolerated Short course of antibiotics for peritoneal contamination as per below, then H pylori treatment COPD on 2.5-3 L home O2 Ongoing tobacco abuse Tobacco cessation discussed. DuoNeb every 6 hours prn. Hold Albuterol prn due to Afib with RVR. ISq1 hour awake CTA 04/19 negative for PE. Afib with RVR: Rate currently controlled. Chads 2 score of 2 she needs to be anticoagulated when cleared by general surgery. Alcohol abuse Thiamine 100 mg IV daily. Monitor for signs and symptoms of alcohol withdrawal. Elevated lipase - No evidence of pancreatitis on CT, may be secondary to inflammation from duodenal perf. BLAS Hypokalemia Monitor intake and output. Monitor electrolytes and replace as indicated. Aggressive electrolyte replacement Discontinue Norris. Sepsis secondary to perforated duodenal ulcer with abscess and intra-abdominal contamination. F/u blood culture negative to date. On zosyn, diflucan, levaquin since April 20 for intraabdominal contamination. Anticipate short course of therapy (4-5 days). 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 No active symptoms of C diff prior to this presentation, tested to determine colonization status on admission. Will ct vancomycin po 125 mg qid for C diff secondary prophylaxis given history of recurrence (ok via NGT per Dr. Kelley). Added Lactinex Chronic prednisone use Has been on prednisone 20 mg po bid, reportedly since 03/14, due to COPD. (Has hx of SLE, not on therapy). Ideally should be off steroids given duodenal ulcers. Discontinue IV steroids. Start prednisone 10 mg p.o. twice daily. Wean off as tolerated. PROPH: SCD for DVT prophylaxis. Protonix Discharge Planning: Okay to transfer to medical floor.
[2018-04-23] MEDS: Mag Sulf 1 gm/100 ml Premix 100 ML IV.SIG SCH ×2 (18:03→19:42)
[2018-04-23] MEDS: Amoxicillin/Clavulanate 875/125 MG Tablet PO SCH (20:17)
[2018-04-23] MEDS: predniSONE 10 MG Tablet PO SCH (20:17)
[2018-04-23] MEDS ORDERED: Potassium Chloride 25 MEQ Effervescent Tablet PO ONE (23:15)
[2018-04-24 07:13] LABS: Baso % (Auto) 0.3 % (0.0-2.0); Eos % (Auto) 0.1 % (0.0-4.0); Hematocrit 34.4 % (35.0-46.0); Hemoglobin 10.8 gm/dL (11.6-15.3); Lymph # (Auto) 0.6 th/mm3 (1.0-4.8); Lymph % (Auto) 4.7 % (9.0-44.0); Mean Corpuscular HGB Conc 31.4 % (32.0-36.0); Mean Corpuscular Hemoglobin 24.8 pg (27.0-34.0); Mean Corpuscular Volume 78.9 fL (80.0-100.0); Mean Platelet Volume 7.5 fL (7.0-11.0); Mono # (Auto) 0.8 th/mm3 (0.0-0.9); Mono % (Auto) 6.4 % (0.0-8.0); Neut # (Auto) 11.2 th/mm3 (1.8-7.7); Neut % (Auto) 88.5 % (16.0-70.0); Platelet Count 211 th/mm3 (150-450); Red Blood Count 4.35 mil/mm3 (4.00-5.30); Red Cell Distribution Width 18.9 % (11.6-17.2); White Blood Count 12.6 th/mm3 (4.0-11.0)
[2018-04-24 07:33] LABS: Anion Gap 7 meq/L (5-15); Blood Urea Nitrogen 3 mg/dL (7-18); Chloride 96 meq/L (98-107); Glomerular Filtration Rate Greater Than 89 mL/min (>89); Glucose,Random 82 mg/dL (74-106); Sodium 140 meq/L (136-145)
[2018-04-24 07:55] LABS: Potassium 2.7 meq/L (3.5-5.1)
[2018-04-24 08:25] LABS: Lymphocytes 6 % (9-44); Metamyelocytes 5 % (0-1); Monocytes 1 % (0-8); Toxic Granulation 1+
[2018-04-24 08:26] LABS: Platelet Estimate Normal (Normal)
[2018-04-24 08:27] LABS: Target Cells 1+
[2018-04-24] MEDS: Thiamine Inj 100 MG in Sodium Chlor 0.9% Inj 100 ML IV.SIG SCH (09:54)
[2018-04-24] MEDS: Pantoprazole Inj 40 MG Vial IV.PUSH SCH ×2 (09:55→21:13)
[2018-04-24] MEDS: Amoxicillin/Clavulanate 875/125 MG Tablet PO SCH ×2 (09:56→21:12)
[2018-04-24] MEDS: Lactobacillus Acidophilus/L. Spores Tablet NG/OG SCH ×3 (09:56→18:34)
[2018-04-24] MEDS: Senna/Docusate Sodium 8.6/50 MG Tablet PO SCH ×2 (09:56→21:13)
[2018-04-24] MEDS: predniSONE 10 MG Tablet PO SCH ×2 (09:56→21:12)
[2018-04-24] MEDS: Sod Chloride 0.9% Inj 1,000 ML IV.CONT SCH (09:56)
[2018-04-24] MEDS ORDERED: Potassium Chloride 10 MEQ ER Capsule PO ONE (11:15)
--- NOTE | 2018-04-24 11:23 | P.PNIM ---
Subjective Interval history: Reports still a lot of abdominal pain and poor appetite. Not really eating. Open to having some chocolate ensure. She is having bowel movements. No active nausea right now. Feeling weak. Physical Exam Vital signs: Vital Signs 04/23/18 12:00 04/23/18 16:00 04/23/18 20:00 Temperature 97.8 F 98.8 F 98.5 F Pulse Rate 84 78 81 Respiratory Rate 21 14 13 Blood Pressure 150/72 H 147/69 H 133/63 Pulse Oximetry 100 100 100 04/23/18 22:00 04/24/18 00:00 04/24/18 04:00 Temperature 97.6 F 97.9 F 97.4 F L Pulse Rate 79 90 87 Respiratory Rate 18 18 18 Blood Pressure 147/71 H 128/68 Pulse Oximetry 97 96 96 04/24/18 08:00 Temperature 97.8 F Pulse Rate 105 H Respiratory Rate 17 Blood Pressure 130/65 Pulse Oximetry 96 Intake & Output 04/23/18 04/24/18 04/24/18 18:59 06:59 18:59 Intake Total 1970 1930 / 1930 Output Total 1330 / 1330 Balance 1970 600 / 600 Weight 58.513 kg Intake: IV 1551 / 1551 1450 / 1450 Protonix Inj 80 MG In NS Inj 150 / 150 100 ML @ 10 mls/hr IV.CONT CONT [facility] Rx#:[id number] NS Inj 1,000 ML @ 42 mls/hr IV. 1000 / 1000 CONT .[id number] [facility] Rx#:[id number] Magnesium Sulfate 1 gm/D5W 100 200 / 200 ml Premix 100 ML @ 100 mls/hr IV.SIG Q1H [facility] Rx#:[id number] KCl 20 mEq Premix Inj 20 meq In 300 / 300 100 ml @ 50 mls/hr IV.SIG Q2H PRN Rx#:[id number] Thiamine Inj 100 MG In NS Inj 101 / 101 100 ML @ 100 mls/hr IV.SIG DAILY [facility] Rx#:[id number] Oral 420 / 420 480 / 480 Output: Urine 1300 / 1300 Wound Drainage 30 / 30 # 1 Lower Anterior Medial 30 / 30 Abdomen Other: # Urine Diapers 4 Date of Last Bowel Movement 04/23/18 04/23/18 # Bowel Movements 3 # Incontinent Bowel Movements 1 Narrative: GENERAL: This is a thin, well-developed patient, in no apparent distress. CARDIOVASCULAR: Regular rate and rhythm . RESPIRATORY: Clear to auscultation. Breath sounds equal bilaterally. No wheezes , rales, or rhonchi. GASTROINTESTINAL: Abdomen soft, tenderness of the mid abdomen, binders in place few bowel sounds. MUSCULOSKELETAL: Extremities without clubbing, cyanosis, or edema. NEURO: Alert & Oriented x4 to person, place, time, situation. Moves all ext x4 - Urinary Catheter Management Indwelling Urethral Catheter Cath placed during this visit: yes Urethral indwelling: Yes Reason for continuing: Hourly intake/output Insertion date: 04/19/18 Results - Labs CBC & Chem 7: 04/24/18 06:34 04/24/18 06:34 Laboratory Results - last 24 hr 04/23/18 04/24/18 04/24/18 20:40 06:34 06:34 WBC 12.6 H RBC 4.35 Hgb 10.8 L D Hct 34.4 L MCV 78.9 L MCH 24.8 L MCHC 31.4 L RDW 18.9 H Plt Count 211 MPV 7.5 Prelim Diff (Auto) Slide review pending Neut % (Auto) 88.5 H Lymph % (Auto) 4.7 L [place] % (Auto) 6.4 Eos % (Auto) 0.1 Baso % (Auto) 0.3 Neut # (Auto) 11.2 H Lymph # (Auto) 0.6 L [place] # (Auto) 0.8 Eos # (Auto) 0.0 Baso # (Auto) 0.0 WBC Differential Manual diff final Seg Neuts % (Manual) 76 H Band Neuts % (Manual) 12 H Lymphocytes % (Manual) 6 L Monocytes % (Manual) 1 Metamyelocytes % (Man) 5 H Abs Neuts (Manual) 11.7 H Differential Comment . Toxic Granulation 1+ H Platelet Estimate Normal Platelet Morphology Enlarged H Target Cells 1+ H Sodium 140 Potassium 2.6 L* 2.7 L* Chloride 96 L D Carbon Dioxide 37.0 H Anion Gap 7 BUN 3 L Creatinine Less than 0.15 L Estimated GFR Greater than 89 Random Glucose 82 Calcium 8.0 L Microbiology 04/19/18 19:05 Blood - Peripheral Aerobic Blood Culture - Final No growth in 5 days 04/19/18 19:05 Blood - Peripheral Anaerobic Blood Culture - Final No growth in 5 days 04/19/18 19:00 Blood - Peripheral Aerobic Blood Culture - Final No growth in 5 days 04/19/18 19:00 Blood - Peripheral Anaerobic Blood Culture - Final No growth in 5 days - Procedures Exploratory laparotomy repair of perforated duodenal ulcer with Michel patch Assessment and Plan - Plan 67-year-old female with perforated duodenal ulcer: Perforated duodenal ulcer s/p ex laparoscopy with Michel Patch Dr. Kelley . Progressing well. General surgery following. On pured diet as tolerated, will add Ensure today Short course of antibiotics for peritoneal contamination as per below, then H pylori treatment Continue IV fluid hydration due to poor p.o. intake. Encourage physical therapy. COPD on 2.5-3 L home O2 Ongoing tobacco abuse Tobacco cessation discussed. DuoNeb every 6 hours prn. Hold Albuterol prn due to Afib with RVR. ISq1 hour awake CTA 04/19 negative for PE. Afib with RVR: Rate currently controlled. Chads 2 score of 2 she needs to be anticoagulated when cleared by general surgery. Alcohol abuse Thiamine 100 mg IV daily will change to p.o. Monitor for signs and symptoms of alcohol withdrawal. Elevated lipase - No evidence of pancreatitis on CT, may be secondary to inflammation from duodenal perf. BLAS Hypokalemia Monitor intake and output. Monitor electrolytes and replace as indicated. Aggressive electrolyte replacement Check magnesium level Sepsis secondary to perforated duodenal ulcer with abscess and intra-abdominal contamination. F/u blood culture negative to date. Previously on zosyn, diflucan, levaquin since April 20 for intraabdominal contamination. General surgery has changed to Augmentin, Diflucan. 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 No active symptoms of C diff prior to this presentation, tested to determine colonization status on admission. Will continue vancomycin po 125 mg qid for C diff secondary prophylaxis given history of recurrence Added Lactinex Chronic prednisone use Has been on prednisone 20 mg po bid, reportedly since 03/14, due to COPD. (Has hx of SLE, not on therapy). Ideally should be off steroids given duodenal ulcers. Discontinue IV steroids. Started prednisone 10 mg p.o. twice daily yesterday. Wean off as tolerated. PROPH: SCD for DVT prophylaxis. Protonix Discharge Planning: Likely will need [facility] facility placement
[2018-04-24] MEDS ORDERED: Potassium Chloride 25 MEQ Effervescent Tablet NG/OG ONE (11:30)
[2018-04-24] MEDS: KCL 20 mEq/D5W/NaCl 0.45% Inj 1,000 ML IV.CONT SCH (14:34)
--- NOTE | 2018-04-24 16:07 | P.PNGS ---
Subjective Interval history: DAILY PROGRESS NOTE FOR SURGICAL ATTENDING, DR. MITRA LOPEZ Patient seen about 0745--- nauseous from oral potassium Had a rough night Physical Exam Vital signs: Vital Signs 04/23/18 20:00 04/23/18 22:00 04/24/18 00:00 Temperature 98.5 F 97.6 F 97.9 F Pulse Rate 81 79 90 Respiratory Rate 13 18 18 Blood Pressure 133/63 147/71 H Pulse Oximetry 100 97 96 04/24/18 04:00 04/24/18 08:00 04/24/18 11:37 Temperature 97.4 F L 97.8 F Pulse Rate 87 105 H 110 H Respiratory Rate 18 17 12 Blood Pressure 128/68 130/65 Pulse Oximetry 96 96 98 04/24/18 11:54 04/24/18 14:14 Temperature 97.6 F Pulse Rate 106 H 92 H Respiratory Rate 17 12 Blood Pressure 122/61 Pulse Oximetry 99 Intake & Output 04/23/18 04/24/18 04/24/18 18:59 06:59 18:59 Intake Total 1970 1930 / 1930 100 / 100 Output Total 1330 / 1330 Balance 1970 600 / 600 100 / 100 Weight 58.513 kg Intake: IV 1551 / 1551 1450 / 1450 100 / 100 Protonix Inj 80 MG In NS Inj 150 / 150 100 ML @ 10 mls/hr IV.CONT CONT [facility] Rx#:[id number] NS Inj 1,000 ML @ 42 mls/hr IV. 1000 / 1000 CONT .[id number] [facility] Rx#:[id number] Magnesium Sulfate 1 gm/D5W 100 200 / 200 ml Premix 100 ML @ 100 mls/hr IV.SIG Q1H [facility] Rx#:[id number] KCl 20 mEq Premix Inj 20 meq In 300 / 300 100 ml @ 50 mls/hr IV.SIG Q2H PRN Rx#:[id number] Thiamine Inj 100 MG In NS Inj 101 / 101 100 / 100 100 ML @ 100 mls/hr IV.SIG DAILY [facility] Rx#:[id number] Oral 420 / 420 480 / 480 Output: Urine 1300 / 1300 Wound Drainage 30 / 30 # 1 Lower Anterior Medial 30 / 30 Abdomen Other: # Urine Diapers 4 Date of Last Bowel Movement 04/23/18 04/23/18 # Bowel Movements 3 # Incontinent Bowel Movements 1 Narrative: Alert and awake Abd: soft; EARNESTINE with serous non cloudy drainage; incisions c/d/i - Urinary Catheter Management Indwelling Urethral Catheter Cath placed during this visit: yes Urethral indwelling: Yes Reason for continuing: Hourly intake/output Insertion date: 04/19/18 Assessment and Plan - Assessment (1) Duodenal ulcer with perforation Code(s): K26.5 - Chronic or unspecified duodenal ulcer with perforation Status : Acute (2) Atrial fibrillation with RVR Code(s): I48.91 - Unspecified atrial fibrillation Status: Resolved Onset Date: ~04/20/18 (3) History of peptic ulcer disease Code(s): Z87.11 - Personal history of peptic ulcer disease Status: Chronic (4) Alcohol use Code(s): Z78.9 - Other specified health status Status: Chronic (5) Tobacco use Code(s): Z72.0 - Tobacco use Status: Chronic (6) Diabetes Code(s): E11.9 - Type 2 diabetes mellitus without complications Status: Chronic (7) Asthma exacerbation in COPD Code(s): J44.1 - Chronic obstructive pulmonary disease with (acute) exacerbation ; J45.901 - Unspecified asthma with (acute) exacerbation Status: Chronic (8) Current chronic use of systemic steroids Code(s): 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 MITRA LOPEZ Patient progressing nicely She does not like the oral potassium and makes her stomach upset Tolerating diet Slow steady improvement increasing diet Will need short stay rehab arrangements for [facility] I agree with above assessment and plan. The exam, history, and the medical decision-making described in the above note were completed with the assistance of the mid-level provider. I reviewed and agree with the findings presented. I attest that I had a [id number] encounter with the patient on the same day, and personally performed and documented my assessment and findings in the medical record. The following services were provided during this hospital visit: Chart data review, vital sign assessments/reviewing monitor data Review of consultations notes if present. Medication orders/review and/or management Ordering and/or reviewing lab tests Ordering and/or interpreting/reviewing x-rays and/or diagnostic studies Care of the patient and discussion of the patient with the care team Documentation time To help prompt me to consider important information that might be impacting today's encounter and assessment, Information from prior notes written by myself or my colleagues may have been "brought forward/copy and pasted" into today's note. (6) Diabetes Qualifiers: Diabetes mellitus type: type 2 Diabetes mellitus complication status: with hyperglycemia
[2018-04-24] MEDS: HYDROmorphone PF Inj 2 MG/ML Vial IV.PUSH PRN (21:20)
[2018-04-25 05:50] LABS: Baso % (Auto) 0.2 % (0.0-2.0); Eos % (Auto) 0.1 % (0.0-4.0); Hematocrit 32.1 % (35.0-46.0); Hemoglobin 10.1 gm/dL (11.6-15.3); Lymph # (Auto) 0.6 th/mm3 (1.0-4.8); Mean Corpuscular HGB Conc 31.3 % (32.0-36.0); Mean Corpuscular Hemoglobin 25.1 pg (27.0-34.0); Mean Corpuscular Volume 80.3 fL (80.0-100.0); Mean Platelet Volume 7.8 fL (7.0-11.0); Mono # (Auto) 0.8 th/mm3 (0.0-0.9); Mono % (Auto) 3.6 % (0.0-8.0); Neut # (Auto) 19.3 th/mm3 (1.8-7.7); Neut % (Auto) 93.1 % (16.0-70.0); Platelet Count 212 th/mm3 (150-450); Red Cell Distribution Width 19.5 % (11.6-17.2); White Blood Count 20.7 th/mm3 (4.0-11.0)
[2018-04-25] MEDS: KCL 20 mEq/D5W/NaCl 0.45% Inj 1,000 ML IV.CONT SCH ×2 (05:54→21:30)
[2018-04-25 06:25] LABS: Anion Gap 6 meq/L (5-15); Blood Urea Nitrogen 5 mg/dL (7-18); Calcium 7.8 mg/dL (8.5-10.1); Chloride 94 meq/L (98-107); Glomerular Filtration Rate Greater Than 89 mL/min (>89); Glucose,Random 137 mg/dL (74-106); Magnesium 1.7 mg/dL (1.5-2.5); Sodium 139 meq/L (136-145)
[2018-04-25 06:43] LABS: Potassium 2.9 meq/L (3.5-5.1)
--- NOTE | 2018-04-25 10:27 | P.PNIM ---
Subjective Interval history: Still has extremely poor appetite. Was unable to swallow the pills yesterday of the prednisone, Augmentin and potassium supplements. Reports loose stools. No shortness of breath. Feels weak. passing gas. Physical Exam Vital signs: Vital Signs 04/24/18 11:37 04/24/18 11:54 04/24/18 14:14 Temperature 97.6 F Pulse Rate 110 H 106 H 92 H Respiratory Rate 12 17 12 Blood Pressure 122/61 Pulse Oximetry 98 99 04/24/18 16:00 04/24/18 20:00 04/24/18 20:19 Temperature 97.4 F L 97.8 F Pulse Rate 112 H 118 H 106 H Respiratory Rate 17 19 16 Blood Pressure 113/55 L 118/60 Pulse Oximetry 99 91 L 98 04/24/18 21:00 04/25/18 00:00 04/25/18 04:00 Temperature 97.3 F L 97.4 F L Pulse Rate 136 H 97 H 83 Respiratory Rate 21 19 Blood Pressure 105/56 L 105/57 L Pulse Oximetry 97 98 04/25/18 04:46 04/25/18 08:00 Temperature 97.6 F Pulse Rate 85 84 Respiratory Rate 17 Blood Pressure 111/57 L Pulse Oximetry 97 Intake & Output 04/24/18 04/25/18 04/25/18 18:59 06:59 18:59 Intake Total 581 / 581 1240 / 1240 Output Total 500 / 500 250 / 250 Balance 81 / 81 990 / 990 Weight 57.1 kg Intake: IV 101 / 101 1000 / 1000 D5W/1/2NS + KCL 20 mEq Inj 1, 1000 / 1000 000 ML @ 60 mls/hr IV.CONT . [id number] [facility] Rx#:[id number] Thiamine Inj 100 MG In NS Inj 101 / 101 100 ML @ 100 mls/hr IV.SIG DAILY [facility] Rx#:[id number] Oral 480 / 480 240 / 240 Output: Urine 500 / 500 250 / 250 Other: # Voids 1 # Bowel Movements 1 1 Narrative: GENERAL: This is a thin, well-developed patient, in no apparent distress. CARDIOVASCULAR: Regular rate and rhythm RESPIRATORY: Diminished breath sounds bilaterally GASTROINTESTINAL: Abdomen soft, mild epigastric tenderness, EARNESTINE drain in place with serosanguineous drainage abdominal binder in place. MUSCULOSKELETAL: Extremities without clubbing, cyanosis, or edema. NEURO: Alert & Oriented x4 to person, place, time, situation. Moves all ext x4 - Urinary Catheter Management Indwelling Urethral Catheter Cath placed during this visit: yes Urethral indwelling: Yes Reason for continuing: Hourly intake/output Insertion date: 04/19/18 Results - Labs CBC & Chem 7: 04/25/18 04:58 04/25/18 04:58 Laboratory Results - last 24 hr 04/25/18 04/25/18 04:58 04:58 WBC 20.7 H D RBC 4.00 Hgb 10.1 L Hct 32.1 L MCV 80.3 MCH 25.1 L MCHC 31.3 L RDW 19.5 H Plt Count 212 MPV 7.8 Neut % (Auto) 93.1 H Lymph % (Auto) 3.0 L [place] % (Auto) 3.6 Eos % (Auto) 0.1 Baso % (Auto) 0.2 Neut # (Auto) 19.3 H Lymph # (Auto) 0.6 L [place] # (Auto) 0.8 Eos # (Auto) 0.0 Baso # (Auto) 0.0 WBC Differential . Differential Comment Auto diff final Sodium 139 Potassium 2.9 L* Chloride 94 L Carbon Dioxide 39.0 H Anion Gap 6 BUN 5 L Creatinine 0.23 L Estimated GFR Greater than 89 Random Glucose 137 H Calcium 7.8 L Magnesium 1.7 Microbiology 04/19/18 19:05 Blood - Peripheral Aerobic Blood Culture - Final No growth in 5 days 04/19/18 19:05 Blood - Peripheral Anaerobic Blood Culture - Final No growth in 5 days 04/19/18 19:00 Blood - Peripheral Aerobic Blood Culture - Final No growth in 5 days 04/19/18 19:00 Blood - Peripheral Anaerobic Blood Culture - Final No growth in 5 days - Procedures Exploratory laparotomy repair of perforated duodenal ulcer with Michel patch Assessment and Plan - Plan 67-year-old female with perforated duodenal ulcer: Perforated duodenal ulcer s/p ex laparoscopy with Michel Patch Dr. Kelley . Continue postoperative care, pain control general surgery following. On pured diet as tolerated, tolerated ensure that with poor appetite. Short course of antibiotics for peritoneal contamination as per below, then H pylori treatment Patient did not tolerate p.o. Augmentin and Diflucan will restart IV Zofran until patient can tolerate p.o. Continue IV fluid hydration due to poor p.o. intake. Encourage physical therapy. Hemoglobin remained stable. COPD on 2.5-3 L home O2 Ongoing tobacco abuse Tobacco cessation discussed. DuoNeb every 6 hours scheduled hold Albuterol prn due to Afib with RVR. ISq1 hour awake CTA 04/19 negative for PE. Encourage incentive stroma to use Hold prednisone Afib with RVR: Rate currently controlled. Chads 2 score of 2 she needs to be anticoagulated when cleared by general surgery. Alcohol abuse Thiamine 100 mg IV daily will change to p.o. Monitor for signs and symptoms of alcohol withdrawal. Elevated lipase - No evidence of pancreatitis on CT, may be secondary to inflammation from duodenal perf. BLAS Hypokalemia Monitor intake and output. Monitor electrolytes and replace as indicated. Aggressive electrolyte replacement Check magnesium level Sepsis secondary to perforated duodenal ulcer with abscess and intra-abdominal contamination. F/u blood culture negative to date. Previously on zosyn, diflucan, levaquin since April 20 for intraabdominal contamination. General surgery has changed to Augmentin, Diflucan yesterday on 04/24 however will restart Zosyn due to poor p.o. intake. 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 No active symptoms of C diff prior to this presentation, tested to determine colonization status on admission. Will continue vancomycin po 125 mg qid for C diff secondary prophylaxis given history of recurrence Added Lactinex Chronic prednisone use Has been on prednisone 20 mg po bid, reportedly since 03/14, due to COPD. (Has hx of SLE, not on therapy). Ideally should be off steroids given duodenal ulcers. Discontinue IV steroids. Will hold steroids today Leukocytosiscould be due to prednisone use, will hold and monitor. PROPH: SCD for DVT prophylaxis. Protonix Discharge Planning: Likely will need nursing home facility placement
[2018-04-25] MEDS: Potassium Chlor 20 mEq Premix 20 MEQ/100 ML PIGGYBACK IV.SIG SCH ×2 (11:14→14:35)
[2018-04-25] MEDS: Piperacil/Tazo 3.375 GM Premix 50 ML IV.SIG SCH ×3 (11:14→21:27)
[2018-04-25] MEDS: Pantoprazole Inj 40 MG Vial IV.PUSH SCH ×2 (11:16→21:29)
[2018-04-25] MEDS: Lactobacillus Acidophilus/L. Spores Tablet NG/OG SCH ×3 (11:16→17:58)
[2018-04-25] MEDS: Senna/Docusate Sodium 8.6/50 MG Tablet PO SCH ×2 (11:19→21:30)
[2018-04-25] MEDS: predniSONE 10 MG Tablet PO SCH (11:21)
[2018-04-25] MEDS: HYDROmorphone PF Inj 2 MG/ML Vial IV.PUSH PRN (14:49)
--- NOTE | 2018-04-25 18:27 | P.PNGS ---
Subjective Patient reports: still having pain (no eating well) Physical Exam Vital signs: Vital Signs 04/24/18 20:00 04/24/18 20:19 04/24/18 21:00 Temperature 97.8 F Pulse Rate 118 H 106 H 136 H Respiratory Rate 19 16 Blood Pressure 118/60 Pulse Oximetry 91 L 98 04/25/18 00:00 04/25/18 04:00 04/25/18 04:46 Temperature 97.3 F L 97.4 F L Pulse Rate 97 H 83 85 Respiratory Rate 21 19 Blood Pressure 105/56 L 105/57 L Pulse Oximetry 97 98 04/25/18 08:00 04/25/18 12:00 04/25/18 13:27 Temperature 97.6 F 97.3 F L Pulse Rate 84 91 H 92 H Respiratory Rate 17 17 16 Blood Pressure 111/57 L 110/57 L Pulse Oximetry 97 95 97 04/25/18 16:00 Temperature 97.9 F Pulse Rate 92 H Respiratory Rate 17 Blood Pressure 115/58 L Pulse Oximetry 96 Intake & Output 04/24/18 04/25/18 04/25/18 18:59 06:59 18:59 Intake Total 581 / 581 1240 / 1240 250 / 250 Output Total 500 / 500 250 / 250 50 / 50 Balance 81 / 81 990 / 990 200 / 200 Weight 57.1 kg Intake: IV 101 / 101 1000 / 1000 250 / 250 D5W/1/2NS + KCL 20 mEq Inj 1, 1000 / 1000 000 ML @ 60 mls/hr IV.CONT . [id number] [facility] Rx#:[id number] Zosyn 3.375 GM Premix 50 ML @ 50 / 50 100 mls/hr IV.SIG Q6H [facility] Rx#: [id number] KCl 20 mEq Premix Inj 20 meq In 200 / 200 100 ml @ 50 mls/hr IV.SIG Q2H [facility] Rx#:[id number] Thiamine Inj 100 MG In NS Inj 101 / 101 100 ML @ 100 mls/hr IV.SIG DAILY [facility] Rx#:[id number] Oral 480 / 480 240 / 240 Output: Urine 500 / 500 250 / 250 Wound Drainage 50 / 50 # 1 Lower Anterior Medial 50 / 50 Abdomen Other: # Voids 1 3 # Bowel Movements 1 1 2 - Constitutional no acute distress - Routine Abdominal Exam Present: soft Comments: painful on exam without peritonitis, inc clean, intact, EARNESTINE clear - Urinary Catheter Management Indwelling Urethral Catheter Cath placed during this visit: yes Urethral indwelling: Yes Reason for continuing: Hourly intake/output Insertion date: 04/19/18 Assessment and Plan - Assessment (1) Duodenal ulcer with perforation Code(s): K26.5 - Chronic or unspecified duodenal ulcer with perforation Status : Acute Plan: 67yo female s/p duodenal perforation, stable still not eating EARNESTINE in place, clear fluid, will remove in office can be discharged to rehab if tolerates PO (2) Atrial fibrillation with RVR Code(s): I48.91 - Unspecified atrial fibrillation Status: Resolved Onset Date: ~04/20/18 (3) History of peptic ulcer disease Code(s): Z87.11 - Personal history of peptic ulcer disease Status: Chronic (4) Alcohol use Code(s): Z78.9 - Other specified health status Status: Chronic (5) Tobacco use Code(s): Z72.0 - Tobacco use Status: Chronic (6) Diabetes Code(s): E11.9 - Type 2 diabetes mellitus without complications Status: Chronic (7) Asthma exacerbation in COPD Code(s): J44.1 - Chronic obstructive pulmonary disease with (acute) exacerbation ; J45.901 - Unspecified asthma with (acute) exacerbation Status: Chronic (8) Current chronic use of systemic steroids 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
[2018-04-26] MEDS: HYDROmorphone PF Inj 2 MG/ML Vial IV.PUSH PRN ×6 (00:22→23:19)
[2018-04-26] MEDS: Piperacil/Tazo 3.375 GM Premix 50 ML IV.SIG SCH ×4 (03:41→23:19)
[2018-04-26 05:58] LABS: Eos % (Auto) 0.1 % (0.0-4.0); Hematocrit 31.5 % (35.0-46.0); Hemoglobin 9.6 gm/dL (11.6-15.3); Lymph # (Auto) 0.8 th/mm3 (1.0-4.8); Lymph % (Auto) 3.2 % (9.0-44.0); Mean Corpuscular Hemoglobin 24.7 pg (27.0-34.0); Mean Corpuscular Volume 81.3 fL (80.0-100.0); Mean Platelet Volume 7.8 fL (7.0-11.0); Mono # (Auto) 0.7 th/mm3 (0.0-0.9); Mono % (Auto) 3.1 % (0.0-8.0); Neut # (Auto) 22.4 th/mm3 (1.8-7.7); Neut % (Auto) 93.6 % (16.0-70.0); Platelet Count 205 th/mm3 (150-450); Red Blood Count 3.88 mil/mm3 (4.00-5.30); Red Cell Distribution Width 19.9 % (11.6-17.2); White Blood Count 23.9 th/mm3 (4.0-11.0)
[2018-04-26 06:21] LABS: Mean Corpuscular HGB Conc 30.4 % (32.0-36.0)
[2018-04-26 06:29] LABS: Anion Gap 6 meq/L (5-15); Blood Urea Nitrogen 3 mg/dL (7-18); Calcium 7.4 mg/dL (8.5-10.1); Carbon Dioxide 35.6 meq/L (21.0-32.0); Chloride 95 meq/L (98-107); Glomerular Filtration Rate Greater Than 89 mL/min (>89); Glucose,Random 111 mg/dL (74-106); Potassium 3.2 meq/L (3.5-5.1); Sodium 137 meq/L (136-145)
[2018-04-26 07:16] LABS: Total Protein 4.4 g/dL (6.4-8.2)
[2018-04-26 07:17] LABS: Lymphocytes 3 % (9-44); Monocytes 1 % (0-8); Myelocytes 1 % (0-0); Platelet Estimate Normal (Normal); Platelet Morphology Normal (Normal)
[2018-04-26] MEDS: Lactobacillus Acidophilus/L. Spores Tablet NG/OG SCH ×3 (09:36→18:03)
[2018-04-26] MEDS: Senna/Docusate Sodium 8.6/50 MG Tablet PO SCH ×2 (09:36→20:47)
[2018-04-26] MEDS: Pantoprazole Inj 40 MG Vial IV.PUSH SCH ×2 (09:38→20:46)
[2018-04-26] MEDS: Potassium Chlor 10 mEq Premix 10 MEQ/100 ML PIGGYBACK IV.SIG SCH ×4 (09:54→23:18)
--- NOTE | 2018-04-26 10:13 | P.PNIM ---
Subjective Interval history: Patient states that she feels nauseous. Has had some formed stools. She is coughing up some yellowish sputum and does have some mild shortness of breath. She states any type of movement causes abdominal pain. She is unable to tolerate any of the oral pills and requests changing them to IV or liquid form if able. Physical Exam Vital signs: Vital Signs 04/25/18 12:00 04/25/18 13:27 04/25/18 16:00 Temperature 97.3 F L 97.9 F Pulse Rate 91 H 92 H 92 H Respiratory Rate 17 16 17 Blood Pressure 110/57 L 115/58 L Pulse Oximetry 95 97 96 04/25/18 20:00 04/25/18 20:17 04/26/18 00:00 Temperature 97.8 F 97.6 F Pulse Rate 93 H 92 H 91 H Respiratory Rate 18 20 18 Blood Pressure 117/59 L 107/55 L Pulse Oximetry 94 L 96 95 04/26/18 04:00 04/26/18 08:00 04/26/18 08:50 Temperature 97.3 F L 97.3 F L Pulse Rate 89 84 89 Respiratory Rate 18 17 18 Blood Pressure 107/55 L 116/58 L Pulse Oximetry 92 L 94 L 92 L Intake & Output 04/25/18 04/26/18 04/26/18 18:59 06:59 18:59 Intake Total 300 / 300 1100 / 1100 Output Total 50 / 50 70 / 70 Balance 250 / 250 1030 / 1030 Weight 60 kg Intake: IV 300 / 300 1100 / 1100 D5W/1/2NS + KCL 20 mEq Inj 1, 1000 / 1000 000 ML @ 60 mls/hr IV.CONT . [id number] [facility] Rx#:[id number] Zosyn 3.375 GM Premix 50 ML @ 100 / 100 100 / 100 100 mls/hr IV.SIG Q6H [facility] Rx#: [id number] KCl 20 mEq Premix Inj 20 meq In 200 / 200 100 ml @ 50 mls/hr IV.SIG Q2H [facility] Rx#:[id number] Output: Wound Drainage 50 / 50 70 / 70 # 1 Lower Anterior Medial 50 / 50 70 / 70 Abdomen Other: # Voids 3 2 Date of Last Bowel Movement 04/25/18 # Bowel Movements 2 Narrative: GENERAL: This is a thin, well-developed patient, in no apparent distress. CARDIOVASCULAR: Regular rate and rhythm RESPIRATORY: Diminished breath sounds bilaterally with rhonchi bilateral bases GASTROINTESTINAL: Abdomen soft, mild epigastric tenderness, EARNESTINE drain in place with serosanguineous drainage abdominal binder in place. MUSCULOSKELETAL: Extremities without clubbing, cyanosis, or edema. NEURO: Alert & Oriented x4 to person, place, time, situation. Moves all ext x4 - Urinary Catheter Management Indwelling Urethral Catheter Cath placed during this visit: yes Urethral indwelling: Yes Reason for continuing: Hourly intake/output Insertion date: 04/19/18 Results - Labs CBC & Chem 7: 04/26/18 05:09 04/26/18 05:04 Laboratory Results - last 24 hr 04/26/18 04/26/18 05:04 05:09 WBC 23.9 H RBC 3.88 L Hgb 9.6 L Hct 31.5 L MCV 81.3 MCH 24.7 L MCHC 30.4 L RDW 19.9 H Plt Count 205 MPV 7.8 Prelim Diff (Auto) Slide review pending Neut % (Auto) 93.6 H Lymph % (Auto) 3.2 L [place] % (Auto) 3.1 Eos % (Auto) 0.1 Baso % (Auto) 0.0 Neut # (Auto) 22.4 H Lymph # (Auto) 0.8 L [place] # (Auto) 0.7 Eos # (Auto) 0.0 Baso # (Auto) 0.0 WBC Differential Manual diff final Seg Neuts % (Manual) 79 H Band Neuts % (Manual) 16 H Lymphocytes % (Manual) 3 L Monocytes % (Manual) 1 Myelocytes % (Man) 1 H Abs Neuts (Manual) 22.9 H Differential Comment . Platelet Estimate Normal Platelet Morphology Normal Sodium 137 Potassium 3.2 L Chloride 95 L Carbon Dioxide 35.6 H Anion Gap 6 BUN 3 L Creatinine 0.21 L Estimated GFR Greater than 89 Random Glucose 111 H Calcium 7.4 L* Prot Corrected Calcium 9.0 Total Protein 4.4 L D - Procedures Exploratory laparotomy repair of perforated duodenal ulcer with Michel patch Assessment and Plan - Plan 67-year-old female with perforated duodenal ulcer: Perforated duodenal ulcer s/p ex laparoscopy with Michel Patch Dr. Kelley . Continue postoperative care, pain control general surgery following. On pured diet as tolerated, tolerated ensure that with poor appetite. Short course of antibiotics for peritoneal contamination as per below, then H pylori treatment Patient did not tolerate p.o. Augmentin and p.o. Diflucan will restart IV Zofran and IV Diflucan until patient can tolerate p.o. Continue IV fluid hydration due to poor p.o. intake. Encourage physical therapy. Hemoglobin remained stable. COPD on 2.5-3 L home O2 Ongoing tobacco abuse Tobacco cessation discussed. DuoNeb every 6 hours scheduled hold Albuterol prn due to Afib with RVR. ISq1 hour awake CTA 04/19 negative for PE. Encourage incentive spirometry use Hold prednisone Check portable chest x-ray today to rule out underlying pneumonia versus bronchitis due to patient's continued elevation in white blood cell check sputum cultures Afib with RVR: Rate currently controlled. Chads 2 score of 2 she needs to be anticoagulated when cleared by general surgery. Alcohol abuse Thiamine 100 mg IV daily will change to p.o. Monitor for signs and symptoms of alcohol withdrawal. Elevated lipase - No evidence of pancreatitis on CT, may be secondary to inflammation from duodenal perf. BLAS Hypokalemia Monitor intake and output. Monitor electrolytes and replace as indicated. Aggressive electrolyte replacement Replete Sepsis secondary to perforated duodenal ulcer with abscess and intra-abdominal contamination. F/u blood culture negative to date. Previously on zosyn, diflucan, levaquin since April 20 for intraabdominal contamination. General surgery has changed to Augmentin, Diflucan on 04/24 however will restart IV Zosyn due to poor p.o. intake and not able to tolerate p.o. medication. 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 No active symptoms of C diff prior to this presentation, tested to determine colonization status on admission. Will continue vancomycin po 125 mg qid for C diff secondary prophylaxis given history of recurrence Added Lactinex Chronic prednisone use Has been on prednisone 20 mg po bid, reportedly since 03/14, due to COPD. (Has hx of SLE, not on therapy). Ideally should be off steroids given duodenal ulcers. Discontinue IV steroids. Leukocytosiscould be due to previous prednisone use, which is now on hold. Concern for underlying infection and will check portable chest x-ray and sputum cultures. Repeat CBC in the morning PROPH: SCD for DVT prophylaxis. Protonix Discharge Planning: Likely will need assisted facility placement
--- NOTE | 2018-04-26 10:40 | XR ---
EXAM DATE: 04/26/2018 10:28 AM EDT AGE/SEX: 67 years / Female INDICATIONS: Congestion. CLINICAL DATA: This is the patient's subsequent encounter. Patient reports that signs and symptoms h ave been present for 2 weeks and indicates a pain score of 6/10. MEDICAL/SURGICAL HISTORY: . Pancreatitis, COPD None. COMPARISON: [facility] [place], [facility]A PULMONARY W CONTRAST W 3D, 04/19/2018. . FINDINGS: There is a moderate left pleural effusion and elevation of the right hemidiaphragm with associated at electasis. This is a change from the previous study. . CONCLUSION: There is marked elevation of the right hemidiaphragm or possible diaphragmatic hernia. Left effusion. Electronically signed by: Jignesh Smith MD 04/26/2018 10:39 AM EDT
[2018-04-26] MEDS: KCL 20 mEq/D5W/NaCl 0.45% Inj 1,000 ML IV.CONT SCH (15:07)
--- NOTE | 2018-04-26 17:39 | P.PN ---
Subjective Interval history: Says she does not have any appetite. Physical Exam Vital signs: Vital Signs 04/25/18 20:00 04/25/18 20:17 04/26/18 00:00 Temperature 97.8 F 97.6 F Pulse Rate 93 H 92 H 91 H Respiratory Rate 18 20 18 Blood Pressure 117/59 L 107/55 L Pulse Oximetry 94 L 96 95 04/26/18 04:00 04/26/18 08:00 04/26/18 08:50 Temperature 97.3 F L 97.3 F L Pulse Rate 89 84 89 Respiratory Rate 18 17 18 Blood Pressure 107/55 L 116/58 L Pulse Oximetry 92 L 94 L 92 L 04/26/18 12:00 04/26/18 13:14 04/26/18 16:00 Temperature 97.3 F L 97.6 F Pulse Rate 84 90 95 H Respiratory Rate 17 18 17 Blood Pressure 113/56 L 125/61 Pulse Oximetry 93 L 90 L Intake & Output 04/25/18 04/26/18 04/26/18 18:59 06:59 18:59 Intake Total 300 / 300 1100 / 1100 1150 / 1150 Output Total 50 / 50 70 / 70 Balance 250 / 250 1030 / 1030 1150 / 1150 Weight 60 kg Intake: IV 300 / 300 1100 / 1100 1150 / 1150 D5W/1/2NS + KCL 20 mEq Inj 1, 1000 / 1000 1000 / 1000 000 ML @ 60 mls/hr IV.CONT . [id number] [facility] Rx#:[id number] Zosyn 3.375 GM Premix 50 ML @ 100 / 100 100 / 100 50 / 50 100 mls/hr IV.SIG Q6H [facility] Rx#: [id number] KCl 10 mEq Premix Inj 10 meq In 100 / 100 100 ml @ 100 mls/hr IV.SIG Q1H [facility] Rx#:[id number] KCl 20 mEq Premix Inj 20 meq In 200 / 200 100 ml @ 50 mls/hr IV.SIG Q2H [facility] Rx#:[id number] Output: Wound Drainage 50 / 50 70 / 70 # 1 Lower Anterior Medial 50 / 50 70 / 70 Abdomen Other: # Voids 3 2 Date of Last Bowel Movement 04/25/18 # Bowel Movements 2 - Routine Respiratory Exam Present: CTA bilaterally - Routine Abdominal Exam Present: soft - Urinary Catheter Management Indwelling Urethral Catheter Cath placed during this visit: yes Urethral indwelling: Yes Reason for continuing: Hourly intake/output Insertion date: 04/19/18 Results - Labs CBC & Chem 7: 04/26/18 05:09 04/26/18 05:04 Laboratory Results - last 24 hr 04/26/18 04/26/18 05:04 05:09 WBC 23.9 H RBC 3.88 L Hgb 9.6 L Hct 31.5 L MCV 81.3 MCH 24.7 L MCHC 30.4 L RDW 19.9 H Plt Count 205 MPV 7.8 Prelim Diff (Auto) Slide review pending Neut % (Auto) 93.6 H Lymph % (Auto) 3.2 L [place] % (Auto) 3.1 Eos % (Auto) 0.1 Baso % (Auto) 0.0 Neut # (Auto) 22.4 H Lymph # (Auto) 0.8 L [place] # (Auto) 0.7 Eos # (Auto) 0.0 Baso # (Auto) 0.0 WBC Differential Manual diff final Seg Neuts % (Manual) 79 H Band Neuts % (Manual) 16 H Lymphocytes % (Manual) 3 L Monocytes % (Manual) 1 Myelocytes % (Man) 1 H Abs Neuts (Manual) 22.9 H Differential Comment . Platelet Estimate Normal Platelet Morphology Normal Sodium 137 Potassium 3.2 L Chloride 95 L Carbon Dioxide 35.6 H Anion Gap 6 BUN 3 L Creatinine 0.21 L Estimated GFR Greater than 89 Random Glucose 111 H Calcium 7.4 L* Prot Corrected Calcium 9.0 Total Protein 4.4 L D - Imaging Impressions Chest X-Ray 04/26/18 10:03 CONCLUSION: There is marked elevation of the right hemidiaphragm or possible diaphragmatic hernia. Left effusion. - Procedures Exploratory laparotomy repair of perforated duodenal ulcer with Michel patch Assessment and Plan - Assessment (1) Duodenal ulcer with perforation Code(s): K26.5 - Chronic or unspecified duodenal ulcer with perforation Status : Acute Plan: WBCs continue to remain high. IV Diflucan restarted. Not ready for transfer at this time. May need to consider culturing drain output. She may benefit from Megace to stimulate her appetite. (2) Atrial fibrillation with RVR Code(s): I48.91 - Unspecified atrial fibrillation Status: Resolved Onset Date: ~09/10/18 (3) History of peptic ulcer disease Code(s): Z87.11 - Personal history of peptic ulcer disease Status: Chronic (4) Alcohol use Code(s): Z78.9 - Other specified health status Status: Chronic (5) Tobacco use Code(s): Z72.0 - Tobacco use Status: Chronic (6) Diabetes Code(s): E11.9 - Type 2 diabetes mellitus without complications Status: Chronic (7) Asthma exacerbation in COPD Code(s): J44.1 - Chronic obstructive pulmonary disease with (acute) exacerbation ; J45.901 - Unspecified asthma with (acute) exacerbation Status: Chronic (8) Current chronic use of systemic steroids 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 The following services were provided during this hospital visit: Chart data review, vital sign assessments/reviewing monitor data Review of consultation notes if present Medication orders/review and/or management Ordering and/or reviewing lab tests Ordering and/or interpreting/reviewing x-rays and/or diagnostic studies Care of the patient and discussion of the patient with the care team Documentation time To help prompt me to consider important information that might be impacting today's encounter and assessment, Information from prior notes written by myself or my colleagues may have been "brought forward/copy and pasted" into today's note. (6) Diabetes Qualifiers: Diabetes mellitus type: type 2 Diabetes mellitus complication status: with hyperglycemia
[2018-04-26] MEDS: Megestrol Acetate Liq 400 MG/10 ML UDC PO SCH (20:47)
[2018-04-27] MEDS: Piperacil/Tazo 3.375 GM Premix 50 ML IV.SIG SCH ×4 (03:26→21:23)
[2018-04-27] MEDS: HYDROmorphone PF Inj 2 MG/ML Vial IV.PUSH PRN ×5 (03:26→20:24)
[2018-04-27] MEDS: KCL 20 mEq/D5W/NaCl 0.45% Inj 1,000 ML IV.CONT SCH (05:37)
[2018-04-27 06:04] LABS: Baso % (Auto) 0.1 % (0.0-2.0); Eos % (Auto) 0.2 % (0.0-4.0); Hematocrit 32.6 % (35.0-46.0); Hemoglobin 9.8 gm/dL (11.6-15.3); Lymph # (Auto) 0.9 th/mm3 (1.0-4.8); Lymph % (Auto) 3.8 % (9.0-44.0); Mean Corpuscular Hemoglobin 24.6 pg (27.0-34.0); Mean Corpuscular Volume 82.1 fL (80.0-100.0); Mono # (Auto) 0.8 th/mm3 (0.0-0.9); Mono % (Auto) 3.2 % (0.0-8.0); Neut # (Auto) 21.8 th/mm3 (1.8-7.7); Neut % (Auto) 92.7 % (16.0-70.0); Platelet Count 202 th/mm3 (150-450); Red Blood Count 3.97 mil/mm3 (4.00-5.30); Red Cell Distribution Width 19.8 % (11.6-17.2); White Blood Count 23.5 th/mm3 (4.0-11.0)
[2018-04-27 06:14] LABS: Mean Corpuscular HGB Conc 29.9 % (32.0-36.0)
[2018-04-27 06:58] LABS: Lymphocytes 10 % (9-44); Monocytes 3 % (0-8); Platelet Estimate Normal (Normal); Platelet Morphology Normal (Normal); Toxic Granulation 1+
[2018-04-27 06:59] LABS: Ovalocytes 1+
[2018-04-27] MEDS: Megestrol Acetate Liq 400 MG/10 ML UDC PO SCH ×3 (07:48→21:23)
[2018-04-27] MEDS: Pantoprazole Inj 40 MG Vial IV.PUSH SCH ×2 (08:05→21:23)
[2018-04-27 09:36] LABS: Anion Gap 9 meq/L (5-15); Blood Urea Nitrogen 2 mg/dL (7-18); Calcium 7.9 mg/dL (8.5-10.1); Carbon Dioxide 33.1 meq/L (21.0-32.0); Chloride 94 meq/L (98-107); Glomerular Filtration Rate Greater Than 89 mL/min (>89); Glucose,Random 91 mg/dL (74-106); Potassium 3.6 meq/L (3.5-5.1); Sodium 136 meq/L (136-145)
[2018-04-27] MEDS: Senna/Docusate Sodium 8.6/50 MG Tablet PO SCH ×2 (10:47→21:38)
[2018-04-27] MEDS: Lactobacillus Acidophilus/L. Spores Tablet NG/OG SCH ×2 (10:47→18:33)
--- NOTE | 2018-04-27 11:56 | P.PNGS ---
Subjective Interval history: DAILY PROGRESS NOTE FOR SURGICAL ATTENDING, DR. MITRA LOPEZ Resting in bed C/o cough Appetite a little better today No diarrhea Physical Exam Vital signs: Vital Signs 04/26/18 12:00 04/26/18 13:14 04/26/18 16:00 Temperature 97.3 F L 97.6 F Pulse Rate 84 90 95 H Respiratory Rate 17 18 17 Blood Pressure 113/56 L 125/61 Pulse Oximetry 93 L 90 L 04/26/18 19:30 04/26/18 20:00 04/27/18 00:00 Temperature 98.1 F 98 F Pulse Rate 95 H 96 H 88 Respiratory Rate 18 18 18 Blood Pressure 110/52 L 118/58 L Pulse Oximetry 93 L 91 L 92 L 04/27/18 04:00 04/27/18 08:05 04/27/18 11:36 Temperature 97.2 F L 97.2 F L Pulse Rate 88 88 90 Respiratory Rate 20 16 18 Blood Pressure 106/52 L 134/64 Pulse Oximetry 92 L 95 97 Intake & Output 04/26/18 04/27/18 04/27/18 18:59 06:59 18:59 Intake Total 1250 / 1250 1550 / 1550 Output Total 70 / 70 720 / 720 Balance 1180 / 1180 830 / 830 Weight 59.3 kg Intake: IV 1250 / 1250 1550 / 1550 D5W/1/2NS + KCL 20 mEq Inj 1, 1000 / 1000 1000 / 1000 000 ML @ 60 mls/hr IV.CONT . [id number] [facility] Rx#:[id number] Diflucan 400 mg Premix Bag 200 200 / 200 ML @ 100 mls/hr IV.SIG Q24H [facility] Rx#:[id number] Zosyn 3.375 GM Premix 50 ML @ 50 / 50 150 / 150 100 mls/hr IV.SIG Q6H [facility] Rx#: [id number] KCl 10 mEq Premix Inj 10 meq In 200 / 200 100 / 100 100 ml @ 100 mls/hr IV.SIG Q1H [facility] Rx#:[id number] Output: Urine 600 / 600 Wound Drainage 70 / 70 120 / 120 # 1 Lower Anterior Medial 70 / 70 120 / 120 Abdomen Other: # Voids 2 # Bowel Movements 2 Narrative: Alert and awake Abd: binder removed; dressings removed; incision c/d/i with sutures in place - Additional findings Additional findings: ITS Impressions Abdomen/Pelvis CT 04/19/18 16:41 CONCLUSION: 1. Free fluid or free air throughout the abdomen. I don't see an obvious etiology for it. There is no evidence of peptic ulcer disease or definite colonic wall thickening or other than some slightly narrowed loops of transverse colon in the midline. I do not see a normal or abnormal appendix 2. Gallbladder is distended. No stone or wall thickening is identified. Chest CTA 04/19/18 16:41 CONCLUSION: 1. No evidence of deep venous thrombosis. 2. Ascites in the upper abdomen and multiple small collections of free air. 3. The esophagus is prominent with air and fluid. These findings were called to [facility] the emergency room at 1852 hours. Chest X-Ray 04/26/18 10:03 CONCLUSION: There is marked elevation of the right hemidiaphragm or possible diaphragmatic hernia. Left effusion. Laboratory Last Values WBC 23.5 th/mm3 (4.0-11.0) H 04/27/18 04:13 RBC 3.97 mil/mm3 (4.00-5.30) L 04/27/18 04:13 Hgb 9.8 gm/dL (11.6-15.3) L 04/27/18 04:13 Hct 32.6 % (35.0-46.0) L 04/27/18 04:13 MCV 82.1 fL (80.0-100.0) 04/27/18 04:13 MCH 24.6 pg (27.0-34.0) L 04/27/18 04:13 MCHC 29.9 % (32.0-36.0) L 04/27/18 04:13 RDW 19.8 % (11.6-17.2) H 04/27/18 04:13 Plt Count 202 th/mm3 (150-450) 04/27/18 04:13 MPV 8.0 fL (7.0-11.0) 04/27/18 04:13 Prelim Diff (Auto) Slide review pending 04/27/18 04:13 Neut % (Auto) 92.7 % (16.0-70.0) H 04/27/18 04:13 Lymph % (Auto) 3.8 % (9.0-44.0) L 04/27/18 04:13 [place] % (Auto) 3.2 % (0.0-8.0) 04/27/18 04:13 Eos % (Auto) 0.2 % (0.0-4.0) 04/27/18 04:13 Baso % (Auto) 0.1 % (0.0-2.0) 04/27/18 04:13 Neut # (Auto) 21.8 th/mm3 (1.8-7.7) H 04/27/18 04:13 Lymph # (Auto) 0.9 th/mm3 (1.0-4.8) L 04/27/18 04:13 [place] # (Auto) 0.8 th/mm3 (0.0-0.9) 04/27/18 04:13 Eos # (Auto) 0.0 th/mm3 (0.0-0.4) 04/27/18 04:13 Baso # (Auto) 0.0 th/mm3 (0.0-0.2) 04/27/18 04:13 WBC Differential Manual diff final 04/27/18 04:13 Seg Neuts % (Manual) 79 % (16-70) H 04/27/18 04:13 Band Neuts % (Manual) 8 % (0-6) H 04/27/18 04:13 Lymphocytes % (Manual) 10 % (9-44) 04/27/18 04:13 Monocytes % (Manual) 3 % (0-8) 04/27/18 04:13 Metamyelocytes % (Man) 5 % (0-1) H 04/24/18 06:34 Myelocytes % (Man) 1 % (0-0) H 04/26/18 05:09 Abs Neuts (Manual) 20.4 th/mm3 (1.8-7.7) H 04/27/18 04:13 Differential Comment . 04/27/18 04:13 Toxic Granulation 1+ (None) H 04/27/18 04:13 Platelet Estimate Normal (Normal) 04/27/18 04:13 Platelet Morphology Normal (Normal) 04/27/18 04:13 Target Cells 1+ (None) H 04/24/18 06:34 Ovalocytes 1+ (None) H 04/27/18 04:13 PT 10.9 sec (9.8-11.6) 04/19/18 16:50 INR 1.1 Ratio 04/19/18 16:50 APTT 29.7 sec (24.3-30.1) 04/19/18 16:50 Sodium 136 meq/L (136-145) 04/27/18 08:00 Potassium 3.6 meq/L (3.5-5.1) 04/27/18 08:00 Chloride 94 meq/L (98-107) L 04/27/18 08:00 Carbon Dioxide 33.1 meq/L (21.0-32.0) H 04/27/18 08:00 Anion Gap 9 meq/L (5-15) 04/27/18 08:00 BUN 2 mg/dL (7-18) L 04/27/18 08:00 Creatinine 0.17 mg/dL (0.50-1.00) L 04/27/18 08:00 Estimated GFR Greater than 89 mL/min (>89) 04/27/18 08:00 POC Glucose 144 mg/dl (68-110) H 04/20/18 21:17 Random Glucose 91 mg/dL (74-106) 04/27/18 08:00 Lactic Acid 1.3 mmol/L (0.4-2.0) 04/19/18 23:22 Calcium 7.9 mg/dL (8.5-10.1) L 04/27/18 08:00 Prot Corrected Calcium 9.0 mg/dL (8.5-10.1) 04/26/18 05:04 Phosphorus 1.5 mg/dL (2.5-4.9) L 04/22/18 08:30 Magnesium 1.7 mg/dL (1.5-2.5) 04/25/18 04:58 Total Bilirubin 0.3 mg/dL (0.2-1.0) 04/22/18 08:30 AST 21 U/L (15-37) 04/22/18 08:30 ALT 18 U/L (10-53) 04/22/18 08:30 Alkaline Phosphatase 63 U/L (45-117) 04/22/18 08:30 Ammonia 15 mcmol/L (11-32) 04/19/18 16:50 Total Creatine Kinase 88 U/L (26-192) 04/19/18 16:50 Troponin I Less than 0.02 ng/mL (0.02-0.05) L 04/19/18 16:50 Total Protein 4.4 g/dL (6.4-8.2) L D 04/26/18 05:04 Albumin 1.8 g/dL (3.4-5.0) L 04/22/18 08:30 Lipase 978 U/L (73-393) H 04/19/18 16:50 TSH 0.531 uIU/mL (0.358-3.740) 04/21/18 11:13 Nasal Screen MRSA (PCR) Not detected (Negative) 04/19/18 23:55 Serum Alcohol Less than 3 mg/dL (0-5) 04/19/18 16:50 Blood Type O Positive 04/22/18 10:12 Blood Type Recheck Required 04/22/18 10:12 Antibody Screen Negative 04/22/18 10:12 MTS Gel Crossmatch See Detail 04/22/18 10:12 - Urinary Catheter Management Indwelling Urethral Catheter Cath placed during this visit: yes Urethral indwelling: Yes Reason for continuing: Hourly intake/output Insertion date: 04/19/18 Assessment and Plan - Assessment (1) Duodenal ulcer with perforation Code(s): K26.5 - Chronic or unspecified duodenal ulcer with perforation Status : Acute Plan: 67yo female s/p duodenal perforation, stable Appetite a little better today -Continue diet as tolerated -Pain control -Back on IV antibiotics -WBC still elevated 23 will check CXR today may need bronchoscopy to evaluate right side -Restart Prednisone (2) Atrial fibrillation with RVR Code(s): I48.91 - Unspecified atrial fibrillation Status: Resolved Onset Date: ~04/20/18 (3) History of peptic ulcer disease Code(s): Z87.11 - Personal history of peptic ulcer disease Status: Chronic (4) Alcohol use Code(s): Z78.9 - Other specified health status Status: Chronic (5) Tobacco use Code(s): Z72.0 - Tobacco use Status: Chronic (6) Asthma exacerbation in COPD Code(s): J44.1 - Chronic obstructive pulmonary disease with (acute) exacerbation ; J45.901 - Unspecified asthma with (acute) exacerbation Status: Chronic (7) Current chronic use of systemic steroids Code(s): Z79.52 - 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 MITRA LOPEZ I agree with above assessment and plan. The exam, history, and the medical decision-making described in the above note were completed with the assistance of the mid-level provider. I reviewed and agree with the findings presented. I attest that I had a [id number] encounter with the patient on the same day, and personally performed and documented my assessment and findings in the medical record. The following services were provided during this hospital visit: Chart data review, vital sign assessments/reviewing monitor data Review of consultations notes if present. Medication orders/review and/or management Ordering and/or reviewing lab tests Ordering and/or interpreting/reviewing x-rays and/or diagnostic studies Care of the patient and discussion of the patient with the care team Documentation time To help prompt me to consider important information that might be impacting today's encounter and assessment, Information from prior notes written by myself or my colleagues may have been "brought forward/copy and pasted" into today's note.
--- NOTE | 2018-04-27 13:39 | XR ---
EXAM DATE: 04/27/2018 1:32 PM EDT AGE/SEX: 67 years / Female INDICATIONS: Shortness of breath. Cough. CLINICAL DATA: This is the patient's subsequent encounter. Patient reports that signs and symptoms h ave been present for 2 weeks and indicates a pain score of 0/10. MEDICAL/SURGICAL HISTORY: . Pancreatitis, COPD. None. COMPARISON: C, CHEST 1V SINGLE AP, 04/26/2018. . FINDINGS: The cardiac silhouette is enlarged in transverse diameter. There are findings of congestive heart [place] with interstitial and alveolar opacity bilaterally. A large right-sided and smaller left-sided e ffusion is present. CONCLUSION: Cardiomegaly and findings of congestive heart failure. The findings have worsened when compared with the prior examination. Electronically signed by: Fredrick Cox MD 04/27/2018 1:37 PM EDT
--- NOTE | 2018-04-27 18:53 | MB ---
cc: Rojelio Serrato MD DATE: 04/27/2018 REASON FOR CONSULTATION: COPD, post abdominal surgery. HISTORY OF PRESENT ILLNESS: Ms. Bowens is a 67-year-old female with a known history of COPD, chronic respiratory failure, on home oxygen therapy, admitted with abdominal pain, found to have a perforated duodenal ulcer and treated surgically. The surgery went well. The patient does complain of shortness of breath with minimal exertion and cough with thick mucoid secretions. Denies history of fever, chills, hemoptysis. No TB. No industrial exposure. PAST MEDICAL HISTORY: COPD, diabetes mellitus, systemic lupus erythematosus, Clostridium difficile colitis, previous left hip surgery and tubal ligation. FAMILY HISTORY: COPD. MEDICATIONS: 1. Receiving pain medication for abdominal pain. 2. Nebulized albuterol. 3. Amoxicillin. 4. Vancomycin. ALLERGIES: NONE KNOWN TO MEDICATIONS. SOCIAL HISTORY: Long smoking history and continued to smoke up until the time of hospitalization. Alcohol socially. REVIEW OF SYSTEMS: A 12-point review of systems as per HPI and past history, otherwise negative. PHYSICAL EXAMINATION: GENERAL: The patient is alert. VITAL SIGNS: Temperature 97.9, pulse 86, respirations 18, blood pressure 140/90, oxygen saturation 97% on 4 liters oxygen nasal cannula. HEENT: Unremarkable. Eyes without icterus. NECK: Without adenopathy or thyroid enlargement. CHEST: A Few scattered rhonchi at the bases. CARDIAC: PMI not appreciated. S1, S2 audible. No murmur, no rub. ABDOMEN: Lax, bowel sounds audible. EXTREMITIES: Trace edema. LABORATORY DATA: Chest x-ray with cardiomegaly and congestive change suggestive of underlying congestive heart failure. IMPRESSION: 1. Chronic obstructive pulmonary disease. 2. Chronic respiratory failure, on oxygen therapy. 3. Diabetes mellitus. 4. Systemic lupus erythematosus. 5. Question cardiac decompensation. PLAN: The patient will be maintained on oxygen therapy, bronchodilator therapy. Nebulized albuterol is important in an attempt to mobilize secretions. Cardiac evaluation for possible underlying congestive heart failure would be appropriate as well. I do thank you for asking me to partake in Ms. Bowens's care. Rojelio Serrato MD WWW/ezio , 04:00 PM , 04:09 PM
--- NOTE | 2018-04-27 19:06 | P.PNIM ---
Subjective Interval history: Patient reports continued abdominal pain today. Denies any chest pain. Denies shortness of breath Physical Exam Vital signs: Vital Signs 04/26/18 19:30 04/26/18 20:00 04/27/18 00:00 Temperature 98.1 F 98 F Pulse Rate 95 H 96 H 88 Respiratory Rate 18 18 18 Blood Pressure 110/52 L 118/58 L Pulse Oximetry 93 L 91 L 92 L 04/27/18 04:00 04/27/18 08:05 04/27/18 11:36 Temperature 97.2 F L 97.2 F L Pulse Rate 88 88 90 Respiratory Rate 20 16 18 Blood Pressure 106/52 L 134/64 Pulse Oximetry 92 L 95 97 04/27/18 13:57 04/27/18 14:40 Temperature 97.9 F Pulse Rate 93 H 85 Respiratory Rate 16 18 Blood Pressure 145/65 H Pulse Oximetry 100 Intake & Output 04/27/18 04/27/18 04/28/18 06:59 18:59 06:59 Intake Total 1550 / 1550 100 / 100 Output Total 720 / 720 Balance 830 / 830 100 / 100 Weight 59.3 kg Intake: IV 1550 / 1550 100 / 100 D5W/1/2NS + KCL 20 mEq Inj 1, 1000 / 1000 000 ML @ 60 mls/hr IV.CONT . [id number] [facility] Rx#:[id number] Diflucan 400 mg Premix Bag 200 200 / 200 ML @ 100 mls/hr IV.SIG Q24H [facility] Rx#:[id number] Zosyn 3.375 GM Premix 50 ML @ 150 / 150 100 / 100 100 mls/hr IV.SIG Q6H [facility] Rx#: [id number] KCl 10 mEq Premix Inj 10 meq In 100 / 100 100 ml @ 100 mls/hr IV.SIG Q1H [facility] Rx#:[id number] Output: Urine 600 / 600 Wound Drainage 120 / 120 # 1 Lower Anterior Medial 120 / 120 Abdomen Other: # Voids 2 # Bowel Movements 2 Narrative: GENERAL: appears uncomfortable. Breathing comfortably however. SKIN: Warm and dry. HEAD: Normocephalic. EYES: No scleral icterus. No injection or drainage. NECK: Supple, trachea midline. No JVD CARDIOVASCULAR: Regular rate and rhythm without murmurs, gallops, or rubs. RESPIRATORY: Breath sounds with crackles at the bases.. No accessory muscle use. GASTROINTESTINAL: Abdomen soft, non-tender, nondistended. MUSCULOSKELETAL: No cyanosis. +1 peripheral edema.. BACK: Nontender without obvious deformity. No CVA tenderness. - Urinary Catheter Management Indwelling Urethral Catheter Cath placed during this visit: yes Urethral indwelling: Yes Reason for continuing: Hourly intake/output Insertion date: 04/19/18 Results - Labs CBC & Chem 7: 04/27/18 04:13 04/27/18 08:00 Laboratory Results - last 24 hr 04/27/18 04/27/18 04:13 08:00 WBC 23.5 H RBC 3.97 L Hgb 9.8 L Hct 32.6 L MCV 82.1 MCH 24.6 L MCHC 29.9 L RDW 19.8 H Plt Count 202 MPV 8.0 Prelim Diff (Auto) Slide review pending Neut % (Auto) 92.7 H Lymph % (Auto) 3.8 L [place] % (Auto) 3.2 Eos % (Auto) 0.2 Baso % (Auto) 0.1 Neut # (Auto) 21.8 H Lymph # (Auto) 0.9 L [place] # (Auto) 0.8 Eos # (Auto) 0.0 Baso # (Auto) 0.0 WBC Differential Manual diff final Seg Neuts % (Manual) 79 H Band Neuts % (Manual) 8 H Lymphocytes % (Manual) 10 Monocytes % (Manual) 3 Abs Neuts (Manual) 20.4 H Differential Comment . Toxic Granulation 1+ H Platelet Estimate Normal Platelet Morphology Normal Ovalocytes 1+ H Sodium 136 Potassium 3.6 Chloride 94 L Carbon Dioxide 33.1 H Anion Gap 9 BUN 2 L Creatinine 0.17 L Estimated GFR Greater than 89 Random Glucose 91 Calcium 7.9 L - Imaging Impressions Chest X-Ray 04/27/18 00:00 CONCLUSION: Cardiomegaly and findings of congestive heart failure. The findings have worsened when compared with the prior examination. - Procedures Exploratory laparotomy repair of perforated duodenal ulcer with Michel patch Assessment and Plan - Plan 67-year-old female with perforated duodenal ulcer: //Perforated duodenal ulcer s/p ex laparoscopy with Michel Patch Dr. Kelley 04/19. Continue postoperative care, pain control general surgery following. On pured diet as tolerated, tolerated ensure that with poor appetite. Short course of antibiotics for peritoneal contamination as per below, then H pylori treatment Patient did not tolerate p.o. Augmentin and p.o. Diflucan will restart IV Zofran and IV Diflucan until patient can tolerate p.o. Continue IV fluid hydration due to poor p.o. intake. Encourage physical therapy. Hemoglobin remained stable. //COPD on 2.5-3 L home O2 //Fluid overload on 04/27 Ongoing tobacco abuse Tobacco cessation discussed. DuoNeb every 6 hours scheduled hold Albuterol prn due to Afib with RVR. ISq1 hour awake CTA 04/19 negative for PE. Encourage incentive spirometry use Hold prednisone Check portable chest x-ray today to rule out underlying pneumonia versus bronchitis due to patient's continued elevation in white blood cell check sputum cultures = 04/27. Repeat chest x-ray with worsening what appears to be edema. We'll discontinue IV fluids and diuresis.. //Afib with RVR: Rate currently controlled. Chads 2 score of 2 she needs to be anticoagulated when cleared by general surgery. //Alcohol abuse Thiamine 100 mg IV daily will change to p.o. Monitor for signs and symptoms of alcohol withdrawal. //Elevated lipase - No evidence of pancreatitis on CT, may be secondary to inflammation from duodenal perf. //BLAS Hypokalemia Monitor intake and output. Monitor electrolytes and replace as indicated. Aggressive electrolyte replacement Replete = Creatinine stable. Continue to monitor. //Sepsis secondary to perforated duodenal ulcer with abscess and intra- abdominal contamination. F/u blood culture negative to date. Previously on zosyn, diflucan, levaquin since April 20 for intraabdominal contamination. General surgery has changed to Augmentin, Diflucan on 04/24 however will restart IV Zosyn due to poor p.o. intake and not able to tolerate p.o. medication. 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 No active symptoms of C diff prior to this presentation, tested to determine colonization status on admission. Will continue vancomycin po 125 mg qid for C diff secondary prophylaxis given history of recurrence Added Lactinex //Chronic prednisone use Has been on prednisone 20 mg po bid, reportedly since 03/14, due to COPD. (Has hx of SLE, not on therapy). Ideally should be off steroids given duodenal ulcers. Discontinue IV steroids. //Leukocytosiscould be due to previous prednisone use, which is now on hold. Concern for underlying infection and will check portable chest x-ray and sputum cultures. Repeat CBC in the morning = Afebrile. White blood cell count 23.9. Continue to monitor. Continue antibiotics and consult infectious disease. PROPH: SCD for DVT prophylaxis. Protonix
[2018-04-27] MEDS ORDERED: Spironolactone 25 MG Tablet PO ONE (19:15)
[2018-04-27] MEDS: predniSONE 10 MG Tablet PO SCH (21:21)
[2018-04-28] MEDS: HYDROmorphone PF Inj 2 MG/ML Vial IV.PUSH PRN ×5 (00:10→19:02)
[2018-04-28 02:26] LABS: ABG Base Excess 9.6 mmol/L (-2-2); ABG PCO2 53 mmHg (38-42); ABG PO2 49 mmHg (61-120)
[2018-04-28] MEDS: Piperacil/Tazo 3.375 GM Premix 50 ML IV.SIG SCH ×2 (03:01→09:57)
[2018-04-28 04:58] LABS: ABG PCO2 56 mmHg (38-42); ABG PO2 75 mmHg (61-120)
[2018-04-28 06:58] LABS: Baso % (Auto) 0.1 % (0.0-2.0); Hematocrit 31.9 % (35.0-46.0); Hemoglobin 10.2 gm/dL (11.6-15.3); Lymph # (Auto) 1.3 th/mm3 (1.0-4.8); Lymph % (Auto) 5.7 % (9.0-44.0); Mean Corpuscular HGB Conc 31.9 % (32.0-36.0); Mean Corpuscular Hemoglobin 25.1 pg (27.0-34.0); Mean Corpuscular Volume 78.8 fL (80.0-100.0); Mean Platelet Volume 8.4 fL (7.0-11.0); Mono # (Auto) 0.8 th/mm3 (0.0-0.9); Mono % (Auto) 3.5 % (0.0-8.0); Neut # (Auto) 21.4 th/mm3 (1.8-7.7); Neut % (Auto) 90.7 % (16.0-70.0); Platelet Count 308 th/mm3 (150-450); Red Blood Count 4.04 mil/mm3 (4.00-5.30); Red Cell Distribution Width 19.6 % (11.6-17.2); White Blood Count 23.6 th/mm3 (4.0-11.0)
[2018-04-28 07:27] LABS: Albumin 1.5 g/dL (3.4-5.0); Anion Gap 10 meq/L (5-15); Aspartate Aminotransferase 16 U/L (15-37); Blood Urea Nitrogen 4 mg/dL (7-18); Calcium 8.4 mg/dL (8.5-10.1); Carbon Dioxide 34.9 meq/L (21.0-32.0); Chloride 91 meq/L (98-107); Glomerular Filtration Rate Greater Than 89 mL/min (>89); Glucose,Random 154 mg/dL (74-106); Magnesium 1.7 mg/dL (1.5-2.5); Potassium 3.6 meq/L (3.5-5.1); Sodium 136 meq/L (136-145)
[2018-04-28 07:31] LABS: Alanine Aminotransferase 8 U/L (10-53); Alkaline Phosphatase 121 U/L (45-117); Total Protein 5.7 g/dL (6.4-8.2)
[2018-04-28 08:30] LABS: Lymphocytes 1 % (9-44); Monocytes 2 % (0-8); Myelocytes 1 % (0-0)
[2018-04-28 08:31] LABS: Dohle Bodies Present; Platelet Estimate Normal (Normal); Toxic Granulation 1+
--- NOTE | 2018-04-28 09:48 | P.PNGS ---
Subjective Interval history: DAILY PROGRESS NOTE FOR SURGICAL ATTENDING, DR. MITRA LOPEZ Sitting up in bed Coughing up thick secretions No appetite Physical Exam Vital signs: Vital Signs 04/27/18 11:36 04/27/18 13:57 04/27/18 14:40 Temperature 97.2 F L 97.9 F Pulse Rate 90 93 H 85 Respiratory Rate 18 16 18 Blood Pressure 134/64 145/65 H Pulse Oximetry 97 100 04/27/18 20:00 04/27/18 21:30 04/28/18 00:00 Temperature 98.2 F 97.4 F L Pulse Rate 98 H 108 H 109 H Respiratory Rate 18 20 16 Blood Pressure 132/60 142/67 H Pulse Oximetry 90 L 90 L 81 L 04/28/18 00:58 04/28/18 02:52 04/28/18 04:00 Temperature 97.6 F Pulse Rate 111 H 72 Respiratory Rate 20 19 Blood Pressure 132/76 Pulse Oximetry 93 L 90 L 04/28/18 07:46 04/28/18 08:00 Temperature 98.4 F Pulse Rate 107 H 111 H Respiratory Rate 16 17 Blood Pressure 123/60 Pulse Oximetry 94 L 94 L Intake & Output 04/27/18 04/28/18 04/28/18 18:59 06:59 18:59 Intake Total 300 / 300 1100 / 1100 Output Total 1230 / 1230 Balance 300 / 300 -130 / -130 Intake: IV 300 / 300 1100 / 1100 D5W/1/2NS + KCL 20 mEq Inj 1, 1000 / 1000 000 ML @ 60 mls/hr IV.CONT . [id number] [facility] Rx#:[id number] Diflucan 400 mg Premix Bag 200 200 / 200 ML @ 100 mls/hr IV.SIG Q24H [facility] Rx#:[id number] Zosyn 3.375 GM Premix 50 ML @ 100 / 100 100 / 100 100 mls/hr IV.SIG Q6H [facility] Rx#: [id number] Output: Urine 1200 / 1200 Wound Drainage 30 30 # 1 Lower Anterior Medial 30 30 Abdomen Narrative: Alert and awake Resp; course breath sounds; thick secretions Abd: tenderness in RUQ and epigastric area; incisions c/d/i - Additional findings Additional findings: ITS Impressions Abdomen/Pelvis CT 04/19/18 16:41 CONCLUSION: 1. Free fluid or free air throughout the abdomen. I don't see an obvious etiology for it. There is no evidence of peptic ulcer disease or definite colonic wall thickening or other than some slightly narrowed loops of transverse colon in the midline. I do not see a normal or abnormal appendix 2. Gallbladder is distended. No stone or wall thickening is identified. Chest CTA 04/19/18 16:41 CONCLUSION: 1. No evidence of deep venous thrombosis. 2. Ascites in the upper abdomen and multiple small collections of free air. 3. The esophagus is prominent with air and fluid. These findings were called to [facility] the emergency room at 1852 hours. Chest X-Ray 04/29/18 00:00 CONCLUSION: Interval worsening of diffuse pulmonary infiltrates bilaterally consistent with worsening pulmonary edema or pneumonia. Clinical correlation is recommended. - Urinary Catheter Management Indwelling Urethral Catheter Cath placed during this visit: yes Urethral indwelling: Yes Reason for continuing: Hourly intake/output Insertion date: 04/19/18 Assessment and Plan - Assessment (1) Duodenal ulcer with perforation Code(s): K26.5 - Chronic or unspecified duodenal ulcer with perforation Status : Acute Plan: 67yo female s/p duodenal perforation, stable -Still with low appetite--- encourage small meals and Ensure shakes -Dr. Serrato consulted--continue medication management with breathing treatments-- -added continuous pulse ox and Mucinex -Pain control -Continue IV antibiotics -Continue Prednisone -WBC still elevated 23 -CXR reviewed from yesterday (2) Atrial fibrillation with RVR Code(s): I48.91 - Unspecified atrial fibrillation Status: Resolved Onset Date: ~04/20/18 (3) History of peptic ulcer disease Code(s): Z87.11 - Personal history of peptic ulcer disease Status: Chronic (4) Alcohol use Code(s): Z78.9 - Other specified health status Status: Chronic (5) Tobacco use Code(s): Z72.0 - Tobacco use Status: Chronic (6) Asthma exacerbation in COPD Code(s): J44.1 - Chronic obstructive pulmonary disease with (acute) exacerbation ; J45.901 - Unspecified asthma with (acute) exacerbation Status: Chronic (7) Current chronic use of systemic steroids 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 MITRA LOPEZ Patient in ICU Shortness of breath improved after thoracentesis Tolerating some p.o. Feels more comfortable in the ICU I agree with above assessment and plan. The exam, history, and the medical decision-making described in the above note were completed with the assistance of the mid-level provider. I reviewed and agree with the findings presented. I attest that I had a [id number] encounter with the patient on the same day, and personally performed and documented my assessment and findings in the medical record. The following services were provided during this hospital visit: Chart data review, vital sign assessments/reviewing monitor data Review of consultations notes if present. Medication orders/review and/or management Ordering and/or reviewing lab tests Ordering and/or interpreting/reviewing x-rays and/or diagnostic studies Care of the patient and discussion of the patient with the care team Documentation time To help prompt me to consider important information that might be impacting today's encounter and assessment, Information from prior notes written by myself or my colleagues may have been "brought forward/copy and pasted" into today's note.
[2018-04-28] MEDS: Megestrol Acetate Liq 400 MG/10 ML UDC PO SCH ×2 (09:58→21:16)
[2018-04-28] MEDS: predniSONE 10 MG Tablet PO SCH ×2 (09:59→21:16)
[2018-04-28] MEDS: Senna/Docusate Sodium 8.6/50 MG Tablet PO SCH ×2 (10:00→21:16)
[2018-04-28] MEDS: Lactobacillus Acidophilus/L. Spores Tablet NG/OG SCH ×3 (10:00→17:36)
[2018-04-28] MEDS: guaiFENesin 600 MG ER Tablet PO SCH ×2 (10:00→21:16)
[2018-04-28] MEDS: Enoxaparin Inj 40 MG/0.4 ML Syringe SQ SCH (10:00)
[2018-04-28] MEDS: Pantoprazole Inj 40 MG Vial IV.PUSH SCH ×2 (10:01→21:16)
--- NOTE | 2018-04-28 11:23 | P.CONID ---
History of Present Illness Service: Infectious disease Consult date: 04/28/18 Requesting Physician: Robles French Reason for Consult: Evaluate patient with leukocytosis Primary Care Provider: Robles French MD Chief Complaint: Abdominal pain History of Present Illness: Patient seen and examined. Records reviewed. Patient is a 67-year-old female, brought into the hospital for evaluation of 2 day history of abdominal distention and abdominal pain. She apparently has been drinking alcohol most of the day because of the abdominal pain. She had some nausea and vomiting, but has had normal stool. She denies any fever or chills. She has known COPD and has had some complaints of shortness of breath but no cough or any chest pain. On evaluation, CT of the abdomen and pelvis showed free air with free fluid. She was taken to surgery emergently, and had laparoscopic surgery, repair of a perforated duodenal ulcer with Michel patch, with obvious finding of contamination, and abscess. Postoperatively she had some brief problem with paroxysmal atrial fibrillation. Since postop she her appetite has been poor. She had some diarrhea briefly, but her stools have been normal. She is still has poor p.o. intake although it has improved a little bit. Complains of abdominal pain. Patient stated that since last night her shortness of breath has gotten worse. She is currently on a nonrebreather mask, and she was on a BiPAP machine overnight. Patient still has the EARNESTINE drain in place, and output is serous. Since April 23 she has developed mild leukocytosis of 12,000, but since April 25 her white count has been greater than 20,000. Patient has been started on antibiotics. She is currently on Diflucan, Augmentin, and Zosyn. She has had some trouble swallowing pills. Patient is coughing up phlegm and brings up usually yellowish phlegm. She has no urinary complaints. Her last 2 chest x-ray has shown a large pleural effusion on the right and a small effusion on the left Infectious disease consultation has been requested to evaluate the patient with worsening leukocytosis. She is afebrile. Review of Systems Constitutional: Reports anorexia, Reports weakness, Denies chills, Denies fever( s), Denies night sweats Eyes: Denies discharge, Denies dry eyes, Denies itchy eyes Ears, Nose, Mouth, and Throat: Reports difficulty swallowing, Denies ear pain, Denies facial pain, Denies nasal congestion, Denies nasal discharge, Denies pain with swallowing, Denies sore throat Cardiovascular: Reports chest pain, Reports chest pain at rest, Reports shortness of breath Respiratory: Reports chest congestion, Reports cough, Reports shortness of breath Gastrointestinal: Reports abdominal pain, Reports difficulty swallowing, Reports nausea, Denies loose stools, Denies pain with swallowing, Denies vomiting Genitourinary: Denies painful urination Musculoskeletal: Reports muscle weakness, Denies joint swelling Skin/Breast: Denies rash PMFSH - History History Provided By: Patient, Family Member - Medical History Medical History: Medical History (Last Reviewed 04/28/18 @ 11:15 by Christa Almazan MD) C. difficile colitis COPD (chronic obstructive pulmonary disease) Diabetes Lupus - Surgical History Surgical History: Surgical History (Last Reviewed 04/28/18 @ 11:15 by Christa Almazan MD) History of total left hip replacement Hx of tubal ligation - Family History Family History: Family History (Last Reviewed 04/28/18 @ 11:15 by Christa Almazan MD) Other COPD (chronic obstructive pulmonary disease) - Tobacco History Second Hand Smoke Exposure: Yes Tobacco Use In Past 30 Days: Yes Smoking Status: Heavy tobacco smoker Tobacco Type: Cigarettes - Alcohol History How Often Do You Have a Drink Containing Alcohol: 4 or more times a week - Substance Use History Substance History: No History of Abuse - Travel History Recent Travel in the [place] Within the Last 8 Weeks: No Recent Travel Out of the Country Within the Last 8 Weeks: No - Immunization History Tetanus Immunization: Unsure Hx Influenza Vaccine This Season: No Medications and Allergies Active Medications: Active Medications Hydrocodone Bitart/Acetaminophen (Hycet 325/7.5 Mg Liq) 15 ml NG/OG Q4H PRN PRN Reason: pain 1 to 5\ Al Hydroxide/Mg Hydroxide (Milk Of Magnesia Liq) 30 ml PO Q12H PRN PRN Reason: Mild Constipation Albuterol (Albuterol Neb (Prn)) 2.5 mg NEB Q2HR NEB PRN PRN Reason: WHEEZING Last Admin: 04/28/18 00:56 Dose: 2.5 mg Albuterol (Duoneb Neb (Nikhil)) 1 ampul NEB Q6HR WHILE AWAKE NEB [facility]KH[facility] Last Admin: 04/28/18 07:43 Dose: 1 ampul Bisacodyl (Dulcolax Supp) 10 mg RECTAL DAILY PRN PRN Reason: SEVERE CONSITIPATION Diltiazem HCl (Cardizem) 30 mg PO QID [facility] Enoxaparin Sodium (Lovenox Inj) 40 mg SQ DAILY [facility] Last Admin: 04/28/18 10:00 Dose: 40 mg Guaifenesin (Mucinex Er) 600 mg PO BID [facility] Last Admin: 04/28/18 10:00 Dose: 600 mg Hydromorphone HCl (Dilaudid Pf Inj) 0.5 mg IV.PUSH Q4H PRN PRN Reason: pain 6 to 10 Last Admin: 04/28/18 10:01 Dose: 0.5 mg Fluconazole (Diflucan 400 Mg Premix Bag) 200 mls @ 100 mls/hr IV.SIG Q24H [facility] Last Admin: 04/28/18 10:02 Dose: 100 mls/hr Cefepime HCl 2,000 mg/ Sodium (Chloride) 100 mls @ 200 mls/hr IV.SIG Q12H [facility] Lactobacillus Acidophilus (Lactinex) 1 tab NG/OG TID [facility] Last Admin: 04/28/18 10:00 Dose: 1 tab Lactulose (Lactulose Liq) 30 ml PO DAILY PRN PRN Reason: SEVERE CONSITIPATION Megestrol Acetate (Megace Liq) 40 mg PO BID [facility] Last Admin: 04/28/18 09:58 Dose: 40 mg Metronidazole (Flagyl) 500 mg PO Q8HR [facility] Naloxone HCl (Narcan Inj) 0.4 mg IV.PUSH UNSCH PRN PRN Reason: SEE LABEL COMMENTS Ondansetron HCl (Zofran Inj) 4 mg IV.PUSH Q6H PRN PRN Reason: NAUSEA OR VOMITING Last Admin: 04/24/18 17:01 Dose: 4 mg Pantoprazole Sodium (Protonix Inj) 40 mg IV.PUSH Q12HR [facility] Last Admin: 04/28/18 10:01 Dose: 40 mg Prednisone (Deltasone) 10 mg PO BID [facility] Last Admin: 04/28/18 09:59 Dose: 10 mg Senna/Docusate Sodium (Rupa-Colace) 1 tab PO BID [facility] Last Admin: 04/28/18 10:00 Dose: Not Given Sennosides (Senokot) 17.2 mg PO Q12H PRN PRN Reason: Moderate Constipation Sodium Chloride (Ns Flush) 2 ml IV.FLUSH PRN PRN PRN Reason: FLUSH AFTER USING IV ACCESS Last Admin: 04/19/18 16:56 Dose: 2 ml Vancomycin HCl (Vancomycin Po) 125 mg NG/OG QID [facility] Last Admin: 04/28/18 10:01 Dose: 125 mg Allergies Allergy/AdvReac Type Severity Reaction Status Date / Time No Known Allergies Allergy Unverified 03/12/18 19:51 Home Medications Medication Instructions Recorded Confirmed Type albuterol sulfate 1.25 mg INHALATION QID PRN 02/12/18 04/19/18 History albuterol sulfate [Ventolin HFA] 2 puff INHALATION Q4H PRN 02/12/18 04/19/18 History Exam Vital signs: Vital Signs 04/27/18 11:36 04/27/18 13:57 04/27/18 14:40 Temperature 97.2 F L 97.9 F Pulse Rate 90 93 H 85 Respiratory Rate 18 16 18 Blood Pressure 134/64 145/65 H Pulse Oximetry 97 100 04/27/18 20:00 04/27/18 21:30 04/28/18 00:00 Temperature 98.2 F 97.4 F L Pulse Rate 98 H 108 H 109 H Respiratory Rate 18 20 16 Blood Pressure 132/60 142/67 H Pulse Oximetry 90 L 90 L 81 L 04/28/18 00:58 04/28/18 02:52 04/28/18 04:00 Temperature 97.6 F Pulse Rate 111 H 72 Respiratory Rate 20 19 Blood Pressure 132/76 Pulse Oximetry 93 L 90 L 04/28/18 07:46 04/28/18 08:00 Temperature 98.4 F Pulse Rate 107 H 111 H Respiratory Rate 16 17 Blood Pressure 123/60 Pulse Oximetry 94 L 94 L Intake & Output 04/27/18 04/28/18 04/28/18 18:59 06:59 18:59 Intake Total 300 / 300 1100 / 1100 Output Total 1230 / 1230 Balance 300 / 300 -130 / -130 Intake: IV 300 / 300 1100 / 1100 D5W/1/2NS + KCL 20 mEq Inj 1, 1000 / 1000 000 ML @ 60 mls/hr IV.CONT . [id number] [facility] Rx#:[id number] Diflucan 400 mg Premix Bag 200 200 / 200 ML @ 100 mls/hr IV.SIG Q24H [facility] Rx#:[id number] Zosyn 3.375 GM Premix 50 ML @ 100 / 100 100 / 100 100 mls/hr IV.SIG Q6H [facility] Rx#: [id number] Output: Urine 1200 / 1200 Wound Drainage # 1 Lower Anterior Medial Abdomen Narrative: Physical Examination GENERAL: Patient is a well-nourished, well-developed female, awake and alert , mildly dyspneic at rest, on NRB mask SKIN: Cool and dry. No generalized rash, no ecchymoses and no evidence of embolic lesions. HEAD: Atraumatic. Normocephalic. No temporal wasting, or tenderness. EYES: Iva conjunctiva. No petechia or hemorrhage. Pupils equal, round and reactive to light. Extraocular movements full and intact. No scleral icterus. No injection or drainage. EARS, NOSE AND THROAT: Nose without bleeding or purulent nasal discharge. No sinus tenderness. Mucous membranes pink and moist. No oral lesions noted. No exudate. No oral thrush. NECK: Trachea midline. Supple and not tender, no meningeal signs CARDIOVASCULAR: Regular rate and rhythm. No rubs or gallops heard RESPIRATORY: Decreased breath sounds 2/3 lung field on R, decreased breath sound L base ABDOMEN: Distended abdomen, hypoactive bowel sound, diffuse tenderness, worse on R than L. EARNESTINE drain midline with serous fluid. Incisions from her laparoscopy dry with sutures, no evidence of infection. No guarding or rebound. EXTREMITIES: No clubbing, cyanosis, or edema. No joint effusion, has good ROM. No calf tenderness. Well perfused and warm. NEUROLOGICAL: Awake and alert. Cranial nerves grossly intact. Motor grossly within normal limits. PSYCHIATRIC: Normal affect, calm and cooperative. LINE: No evidence of infection Results - Labs CBC & Chem 7: 04/28/18 05:59 04/28/18 05:59 Labs: Laboratory Results - last 24 hr 04/27/18 04/28/18 04/28/18 04:13 02:13 04:47 WBC RBC Hgb Hct MCV MCH MCHC RDW Plt Count MPV Prelim Diff (Auto) Neut % (Auto) Lymph % (Auto) [place] % (Auto) Eos % (Auto) Baso % (Auto) Neut # (Auto) Lymph # (Auto) [place] # (Auto) Eos # (Auto) Baso # (Auto) WBC Differential Seg Neuts % (Manual) Band Neuts % (Manual) Lymphocytes % (Manual) Monocytes % (Manual) Myelocytes % (Man) Abs Neuts (Manual) Differential Comment Toxic Granulation Dohle Bodies Platelet Estimate Platelet Morphology Puncture Site Right radial Left radial Patient Temperature 98.6 98.6 O2 Saturation 79 L* 92 ABG pH 7.43 H 7.41 ABG pCO2 53 H* 56 H* ABG pO2 49 L* 75 ABG HCO3 34 H 35 H ABG O2 Content 14.5 13.1 ABG Base Excess 9.6 H 10.0 H ABG Methemoglobin 1.0 1.0 Jamil Test Present Present Hemoglobin 13.1 10.1 L Carboxyhemoglobin 2.0 2.1 O2 Delivery Device Simple mask Non-rebreathing mask Liter Flow 7.00 13.00 Critical Value Yes Yes Sodium Potassium Chloride Carbon Dioxide Anion Gap BUN Creatinine Estimated GFR Random Glucose Calcium Phosphorus Magnesium Total Bilirubin AST ALT Alkaline Phosphatase B-Natriuretic Peptide 62 Total Protein Albumin 04/28/18 04/28/18 05:59 05:59 WBC 23.6 H RBC 4.04 Hgb 10.2 L Hct 31.9 L MCV 78.8 L MCH 25.1 L MCHC 31.9 L RDW 19.6 H Plt Count 308 D MPV 8.4 Prelim Diff (Auto) Slide review pending Neut % (Auto) 90.7 H Lymph % (Auto) 5.7 L [place] % (Auto) 3.5 Eos % (Auto) 0.0 Baso % (Auto) 0.1 Neut # (Auto) 21.4 H Lymph # (Auto) 1.3 [place] # (Auto) 0.8 Eos # (Auto) 0.0 Baso # (Auto) 0.0 WBC Differential Manual diff final Seg Neuts % (Manual) 95 H Band Neuts % (Manual) 1 Lymphocytes % (Manual) 1 L Monocytes % (Manual) 2 Myelocytes % (Man) 1 H Abs Neuts (Manual) 22.9 H Differential Comment . Toxic Granulation 1+ H Dohle Bodies Present H Platelet Estimate Normal Platelet Morphology Enlarged H Puncture Site Patient Temperature O2 Saturation ABG pH ABG pCO2 ABG pO2 ABG HCO3 ABG O2 Content ABG Base Excess ABG Methemoglobin Jamil Test Hemoglobin Carboxyhemoglobin O2 Delivery Device Liter Flow Critical Value Sodium 136 Potassium 3.6 Chloride 91 L Carbon Dioxide 34.9 H Anion Gap 10 BUN 4 L Creatinine 0.38 L Estimated GFR Greater than 89 Random Glucose 154 H Calcium 8.4 L Phosphorus 4.0 Magnesium 1.7 Total Bilirubin 0.2 AST 16 ALT 8 L Alkaline Phosphatase 121 H B-Natriuretic Peptide Total Protein 5.7 L D Albumin 1.5 L - Imaging Impressions Chest X-Ray 04/27/18 00:00 CONCLUSION: Cardiomegaly and findings of congestive heart failure. The findings have worsened when compared with the prior examination. Assessment and Plan - Plan Impression Worsening leukocytosis, etiology? - has a very large effusion on R, ?PNA, ?infected fluid, ?sympathetic effusion - S/P laparoscopy for perf DU with abscess, ?post op abscess - no diarrhea - voiding ok COPD Respiratory failure, worse likely due to large effusion S/P laparoscopy fro perf DU Recommendation Obtain C/S: Blood, sputum, Urine CT chest - will likely need thoracentesis (diagnostic and therapeutic) Will likely need CT A/P Change Zosyn to cefepime (Decrease salt load, high in Zosyn) Flagyl Continue Diflucan One dose of Vanco Follow C/S and adjust Abx Monitor progress I will determine course of Rx once work up is completed I will follow along with you Thank you for this consultation
--- NOTE | 2018-04-28 11:30 | P.PNIM ---
Subjective Interval history: Patient says she is feeling generally unwell. Denies any chest pain. Coughing up thick secretions. Said abdominal discomfort continues. Physical Exam Vital signs: Vital Signs 04/27/18 11:36 04/27/18 13:57 04/27/18 14:40 Temperature 97.2 F L 97.9 F Pulse Rate 90 93 H 85 Respiratory Rate 18 16 18 Blood Pressure 134/64 145/65 H Pulse Oximetry 97 100 04/27/18 20:00 04/27/18 21:30 04/28/18 00:00 Temperature 98.2 F 97.4 F L Pulse Rate 98 H 108 H 109 H Respiratory Rate 18 20 16 Blood Pressure 132/60 142/67 H Pulse Oximetry 90 L 90 L 81 L 04/28/18 00:58 04/28/18 02:52 04/28/18 04:00 Temperature 97.6 F Pulse Rate 111 H 72 Respiratory Rate 20 19 Blood Pressure 132/76 Pulse Oximetry 93 L 90 L 04/28/18 07:46 04/28/18 08:00 Temperature 98.4 F Pulse Rate 107 H 111 H Respiratory Rate 16 17 Blood Pressure 123/60 Pulse Oximetry 94 L 94 L Intake & Output 04/27/18 04/28/18 04/28/18 18:59 06:59 18:59 Intake Total 300 / 300 1100 / 1100 Output Total 1230 / 1230 Balance 300 / 300 -130 / -130 Intake: IV 300 / 300 1100 / 1100 D5W/1/2NS + KCL 20 mEq Inj 1, 1000 / 1000 000 ML @ 60 mls/hr IV.CONT . [id number] [facility] Rx#:[id number] Diflucan 400 mg Premix Bag 200 200 / 200 ML @ 100 mls/hr IV.SIG Q24H [facility] Rx#:[id number] Zosyn 3.375 GM Premix 50 ML @ 100 / 100 100 / 100 100 mls/hr IV.SIG Q6H [facility] Rx#: [id number] Output: Urine 1200 / 1200 Wound Drainage 30 / 30 # 1 Lower Anterior Medial 30 / 30 Abdomen Narrative: GENERAL: sitting up in bed. awake appears uncomfortable. SKIN: Warm and dry. HEAD: Normocephalic. EYES: No scleral icterus. No injection or drainage. NECK: Supple, trachea midline. No JVD or lymphadenopathy. CARDIOVASCULAR: Regular rate and rhythm without murmurs, gallops, or rubs. RESPIRATORY: Breath sounds equal bilaterally. No accessory muscle use. GASTROINTESTINAL: Abdomen soft, non-tender, nondistended. MUSCULOSKELETAL: No cyanosis, or edema. BACK: Nontender without obvious deformity. No CVA tenderness. - Urinary Catheter Management Indwelling Urethral Catheter Cath placed during this visit: yes Urethral indwelling: Yes Reason for continuing: Hourly intake/output Insertion date: 04/19/18 Results - Labs CBC & Chem 7: 04/28/18 05:59 04/28/18 05:59 Laboratory Results - last 24 hr 04/27/18 04/28/18 04/28/18 04:13 02:13 04:47 WBC RBC Hgb Hct MCV MCH MCHC RDW Plt Count MPV Prelim Diff (Auto) Neut % (Auto) Lymph % (Auto) Starke % (Auto) Eos % (Auto) Baso % (Auto) Neut # (Auto) Lymph # (Auto) Starke # (Auto) Eos # (Auto) Baso # (Auto) WBC Differential Seg Neuts % (Manual) Band Neuts % (Manual) Lymphocytes % (Manual) Monocytes % (Manual) Myelocytes % (Man) Abs Neuts (Manual) Differential Comment Toxic Granulation Dohle Bodies Platelet Estimate Platelet Morphology Puncture Site Right radial Left radial Patient Temperature 98.6 98.6 O2 Saturation 79 L* 92 ABG pH 7.43 H 7.41 ABG pCO2 53 H* 56 H* ABG pO2 49 L* 75 ABG HCO3 34 H 35 H ABG O2 Content 14.5 13.1 ABG Base Excess 9.6 H 10.0 H ABG Methemoglobin 1.0 1.0 Jamil Test Present Present Hemoglobin 13.1 10.1 L Carboxyhemoglobin 2.0 2.1 O2 Delivery Device Simple mask Non-rebreathing mask Liter Flow 7.00 13.00 Critical Value Yes Yes Sodium Potassium Chloride Carbon Dioxide Anion Gap BUN Creatinine Estimated GFR Random Glucose Calcium Phosphorus Magnesium Total Bilirubin AST ALT Alkaline Phosphatase B-Natriuretic Peptide 62 Total Protein Albumin 04/28/18 04/28/18 05:59 05:59 WBC 23.6 H RBC 4.04 Hgb 10.2 L Hct 31.9 L MCV 78.8 L MCH 25.1 L MCHC 31.9 L RDW 19.6 H Plt Count 308 D MPV 8.4 Prelim Diff (Auto) Slide review pending Neut % (Auto) 90.7 H Lymph % (Auto) 5.7 L Starke % (Auto) 3.5 Eos % (Auto) 0.0 Baso % (Auto) 0.1 Neut # (Auto) 21.4 H Lymph # (Auto) 1.3 Starke # (Auto) 0.8 Eos # (Auto) 0.0 Baso # (Auto) 0.0 WBC Differential Manual diff final Seg Neuts % (Manual) 95 H Band Neuts % (Manual) 1 Lymphocytes % (Manual) 1 L Monocytes % (Manual) 2 Myelocytes % (Man) 1 H Abs Neuts (Manual) 22.9 H Differential Comment . Toxic Granulation 1+ H Dohle Bodies Present H Platelet Estimate Normal Platelet Morphology Enlarged H Puncture Site Patient Temperature O2 Saturation ABG pH ABG pCO2 ABG pO2 ABG HCO3 ABG O2 Content ABG Base Excess ABG Methemoglobin Jamil Test Hemoglobin Carboxyhemoglobin O2 Delivery Device Liter Flow Critical Value Sodium 136 Potassium 3.6 Chloride 91 L Carbon Dioxide 34.9 H Anion Gap 10 BUN 4 L Creatinine 0.38 L Estimated GFR Greater than 89 Random Glucose 154 H Calcium 8.4 L Phosphorus 4.0 Magnesium 1.7 Total Bilirubin 0.2 AST 16 ALT 8 L Alkaline Phosphatase 121 H B-Natriuretic Peptide Total Protein 5.7 L D Albumin 1.5 L - Imaging Impressions Chest X-Ray 04/27/18 00:00 CONCLUSION: Cardiomegaly and findings of congestive heart failure. The findings have worsened when compared with the prior examination. - Procedures Exploratory laparotomy repair of perforated duodenal ulcer with Michel patch Assessment and Plan - Plan 67-year-old female with perforated duodenal ulcer: //Perforated duodenal ulcer s/p ex laparoscopy with Michel Patch Dr. Kelley 04/19. Continue postoperative care, pain control general surgery following. On pured diet as tolerated, tolerated ensure that with poor appetite. Short course of antibiotics for peritoneal contamination as per below, then H pylori treatment Patient did not tolerate p.o. Augmentin and p.o. Diflucan will restart IV Zofran and IV Diflucan until patient can tolerate p.o. Continue IV fluid hydration due to poor p.o. intake. Encourage physical therapy. =Hemoglobin stable. = Continue postoperative management as per surgical service. //COPD on 2.5-3 L home O2 //Fluid overload on 04/27 Ongoing tobacco abuse Tobacco cessation discussed. DuoNeb every 6 hours scheduled hold Albuterol prn due to Afib with RVR. ISq1 hour awake CTA 04/19 negative for PE. Encourage incentive spirometry use Hold prednisone Check portable chest x-ray today to rule out underlying pneumonia versus bronchitis due to patient's continued elevation in white blood cell check sputum cultures = 04/27. Repeat chest x-ray with worsening what appears to be edema. We'll discontinue IV fluids and diuresis.. = 04/28. Worsening respiratory status. Does not appear to be CHF as BNP is not elevated. Will repeat chest x-ray. Transfer to ICU. Notified pulmonology. //Afib with RVR: //SVT. Rate currently controlled. Chads 2 score of 2 she needs to be anticoagulated when cleared by general surgery. = 04/28 with what appears to be SVT with rate of 200. Will start on low-dose diltiazem. Recheck EKG. Consult cardiology. //Alcohol abuse Thiamine 100 mg IV daily will change to p.o. Monitor for signs and symptoms of alcohol withdrawal. //Elevated lipase - No evidence of pancreatitis on CT, may be secondary to inflammation from duodenal perf. //BLAS Hypokalemia Monitor intake and output. Monitor electrolytes and replace as indicated. Aggressive electrolyte replacement Replete = Creatinine stable. Continue to monitor. //Sepsis secondary to perforated duodenal ulcer with abscess and intra- abdominal contamination. F/u blood culture negative to date. Previously on zosyn, diflucan, levaquin since April 20 for intraabdominal contamination. General surgery has changed to Augmentin, Diflucan on 04/24 however will restart IV Zosyn due to poor p.o. intake and not able to tolerate p.o. medication. = 04/28. Infectious disease consult ordered on 04/27. Follow-up recommendations. Appreciate assistance. 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 No active symptoms of C diff prior to this presentation, tested to determine colonization status on admission. Will continue vancomycin po 125 mg qid for C diff secondary prophylaxis given history of recurrence Added Lactinex //Chronic prednisone use Has been on prednisone 20 mg po bid, reportedly since 03/14, due to COPD. (Has hx of SLE, not on therapy). Ideally should be off steroids given duodenal ulcers. Discontinue IV steroids. //Leukocytosiscould be due to previous prednisone use, which is now on hold. Concern for underlying infection and will check portable chest x-ray and sputum cultures. Repeat CBC in the morning = Afebrile. White blood cell count 23.9. Continue to monitor. Continue antibiotics and consult infectious disease. = 04/28. Follow-up infectious disease recommendations. PROPH: SCD for DVT prophylaxis. Protonix Discussed Condition With: Patient, nurse.
[2018-04-28] MEDS: dilTIAZem 30 MG Tablet PO SCH ×3 (12:29→21:16)
[2018-04-28 12:32] LABS: ABG Base Excess 11.9 mmol/L (-2-2); ABG PCO2 65 mmHg (38-42); ABG PO2 77 mmHg (61-120)
--- NOTE | 2018-04-28 12:36 | XR ---
EXAM DATE: 04/28/2018 12:15 PM EDT AGE/SEX: 67 years / Female INDICATIONS: Congestion. CLINICAL DATA: This is the patient's subsequent encounter. Patient reports that signs and symptoms h ave been present for 2 weeks and indicates a pain score of 0/10. MEDICAL/SURGICAL HISTORY: . Pancreatitis, COPD. None. COMPARISON: [facility], CHEST 1V SINGLE AP, 04/27/2018. . FINDINGS: The cardiac silhouette is enlarged in transverse diameter. There are findings of congestive heart chase lure with interstitial and alveolar opacity bilaterally. A large right sided effusion is present. Th ere has been no significant change when compared to the prior exam. CONCLUSION: Cardiomegaly and findings of congestive heart failure. There has been no significant change when com pared to the prior exam. Electronically signed by: Fredrick Cox MD 04/28/2018 12:35 PM EDT
[2018-04-28] MEDS ORDERED: Potassium Chloride Inj 30 MEQ in Dextrose 5%/NaCl 0.9% Inj 1,000 ML IV.CONT SCH (13:00)
[2018-04-28] MEDS: metroNIDAZOLE 500 MG Tablet PO SCH ×2 (14:04→21:16)
--- NOTE | 2018-04-28 14:41 | P.PCN ---
Date of procedure: 04/28/18 Pre-op diagnosis: Hypoxemic resp failure, large r pl effusion Post-op diagnosis: same Procedure: PROCEDURE: Ultrasound-guided right thoracentesis Consent was obtained from the patient prior to the procedure. Indications, risks , and benefits were explained at length. PROCEDURE SUMMARY: A time out was performed and the chest x-ray was reviewed, the appropriate side was confirmed and marked with US. My hands were washed immediately prior to the procedure. I wore a surgical cap, mask with protective eyewear, sterile gown and sterile gloves throughout the procedure. The patient was prepped and draped in a sterile manner using chlorhexidine scrub after the appropriate level was percussed and confirmed by ultrasound. 1% lidocaine was used to anesthetize the skin, subcutaneous tissue, superior aspect of the rib periosteum and parietal pleura. A finder needle was then introduced over the superior aspect of the rib to locate the pleural fluid; straw colored, slightly cloudy fluid was aspirated at a depth of approximately 1 cm. A 10-blade scalpel was used to florinda the skin at the insertion site. The thoracentesis Angiocath was then introduced through the skin incision into the pleural space using negative aspiration pressure and fluid was aspirated. The thoracentesis catheter was then threaded without difficulty, and needle and syringe were removed. 1200 ml of straw colored, slightly cloudy pleural fluid was removed without difficulty. The catheter was then removed. No immediate complications were noted during the procedure. A post -procedure chest x-ray is pending at the time of this note. The fluid will be sent for studies. Estimated blood loss is < 1ml. Anesthesia: local Surgeon: Rohith Mason Estimated blood loss (mL): 1 Pathology: other Condition: critical (Fluid studies, culture, cytology sent) Disposition: ICU
--- NOTE | 2018-04-28 15:39 | XR ---
EXAM DATE: 04/28/2018 3:26 PM EDT AGE/SEX: 67 years / Female INDICATIONS: Post thoracentesis. CLINICAL DATA: This is the patient's initial encounter. Patient reports that signs and symptoms have been present for 1 day and indicates a pain score of 2/10. MEDICAL/SURGICAL HISTORY: . Chronic obstructive pulmonary disease. Diabetes. Lupus . COMPARISON: [facility] [place], CHEST 1V SINGLE AP, 04/28/2018. . FINDINGS: The cardiac silhouette is normal in transverse diameter. There is prominence of the aortic knob is wi th calcification characteristic of atherosclerotic vascular disease. Following thoracentesis no pneum othorax is identified. There is significant reduction in the previously seen effusion. There are find ings of congestive heart failure with interstitial and alveolar opacity bilaterally. The findings ar e improved when compared with the prior exam. CONCLUSION: No evidence of pneumothorax following thoracentesis. Electronically signed by: Fredrick Cox MD 04/28/2018 3:37 PM EDT
[2018-04-28 16:23] LABS: Total Protein,Pleural Fluid 2.4 gm/dL
--- NOTE | 2018-04-28 16:51 | P.CONCA ---
History of Present Illness Service: Cardiology Consult date: 04/28/18 Requesting Physician: Robles French Reason for Consult: SVT Primary Care Provider: Robles French MD Chief Complaint: Abdominal pain History of Present Illness: This is a 67-year-old female with a past medical history of COPD with ongoing tobacco abuse, diabetes, alcohol use, lupus and C. difficile colitis. She presented to the emergency department on April 19, 2018 with complaints of abdominal pain and distention 2 days and shortness of breath. She also presented with tachycardia in the 120s-130s normotensive. On April 19 2018 , a laparoscopy with repair of perforated duodenal ulcer was performed. Chest x -ray revealed large right pleural effusion, right thoracentesis was performed on April 28 2018 which removed 1.2 L. Echocardiogram was performed on April 22 2018 which showed EF of 60-65%, mild mitral valve regurgitation, trileaflet aortic valve with moderate aortic valve regurgitation. Patient is currently sinus rhythm on monitor. Patient currently denies any chest pain, pressure, palpitations, dizziness or edema. Patient still complains of mild shortness of breath but states she feels much better after the thoracentesis. Review of Systems All other systems reviewed negative except as stated in HPI PMFSH - History History Provided By: Patient, Family Member - Medical History Medical History: Medical History (Last Reviewed 04/28/18 @ 11:15 by Christa Almazan MD) C. difficile colitis COPD (chronic obstructive pulmonary disease) Diabetes Lupus - Surgical History Surgical History: Surgical History (Last Reviewed 04/28/18 @ 11:15 by Christa Almazan MD) History of total left hip replacement Hx of tubal ligation - Family History Family History: Family History (Last Reviewed 04/28/18 @ 11:15 by Christa Almazan MD) Other COPD (chronic obstructive pulmonary disease) - Tobacco History Second Hand Smoke Exposure: Yes Tobacco Use In Past 30 Days: Yes Smoking Status: Heavy tobacco smoker Tobacco Type: Cigarettes - Alcohol History How Often Do You Have a Drink Containing Alcohol: 4 or more times a week - Substance Use History Substance History: No History of Abuse - Travel History Recent Travel in the [place] Within the Last 8 Weeks: No Recent Travel Out of the Country Within the Last 8 Weeks: No - Immunization History Tetanus Immunization: Unsure Hx Influenza Vaccine This Season: No Medications and Allergies Allergies Allergy/AdvReac Type Severity Reaction Status Date / Time No Known Allergies Allergy Unverified 03/12/18 19:51 Home Medications Medication Instructions Recorded Confirmed Type albuterol sulfate 1.25 mg INHALATION QID PRN 02/12/18 04/19/18 History albuterol sulfate [Ventolin HFA] 2 puff INHALATION Q4H PRN 02/12/18 04/19/18 History Active Medications: Active Medications Hydrocodone Bitart/Acetaminophen (Hycet 325/7.5 Mg Liq) 15 ml NG/OG Q4H PRN PRN Reason: pain 1 to 5\ Al Hydroxide/Mg Hydroxide (Milk Of Magnesia Liq) 30 ml PO Q12H PRN PRN Reason: Mild Constipation Albuterol (Albuterol Neb (Prn)) 2.5 mg NEB Q2HR NEB PRN PRN Reason: WHEEZING Last Admin: 04/28/18 00:56 Dose: 2.5 mg Albuterol (Duoneb Neb (Nikhil)) 1 ampul NEB Q6HR WHILE AWAKE NEB [facility] Last Admin: 04/28/18 07:43 Dose: 1 ampul Bisacodyl (Dulcolax Supp) 10 mg RECTAL DAILY PRN PRN Reason: SEVERE CONSITIPATION Diltiazem HCl (Cardizem) 30 mg PO QID [facility] Last Admin: 04/28/18 12:29 Dose: 30 mg Enoxaparin Sodium (Lovenox Inj) 40 mg SQ DAILY [facility] Last Admin: 04/28/18 10:00 Dose: 40 mg Guaifenesin (Mucinex Er) 600 mg PO BID [facility] Last Admin: 04/28/18 10:00 Dose: 600 mg Hydromorphone HCl (Dilaudid Pf Inj) 0.5 mg IV.PUSH Q4H PRN PRN Reason: pain 6 to 10 Last Admin: 04/28/18 14:04 Dose: 0.5 mg Fluconazole (Diflucan 400 Mg Premix Bag) 200 mls @ 100 mls/hr IV.SIG Q24H [facility] Last Infusion: 04/28/18 12:02 Dose: Infused Cefepime HCl 2,000 mg/ Sodium (Chloride) 100 mls @ 200 mls/hr IV.SIG Q12H [facility] Last Infusion: 04/28/18 13:17 Dose: Infused Potassium Chloride 30 meq/ (Dextrose/Sodium Chloride) 1,015 mls @ 42 mls/hr IV.CONT .Q24H [facility] Last Admin: 04/28/18 12:33 Dose: 42 mls/hr Lactobacillus Acidophilus (Lactinex) 1 tab NG/OG TID [facility] Last Admin: 04/28/18 12:29 Dose: 1 tab Lactulose (Lactulose Liq) 30 ml PO DAILY PRN PRN Reason: SEVERE CONSITIPATION Megestrol Acetate (Megace Liq) 40 mg PO BID [facility] Last Admin: 04/28/18 09:58 Dose: 40 mg Metronidazole (Flagyl) 500 mg PO Q8HR [facility] Last Admin: 04/28/18 14:04 Dose: 500 mg Naloxone HCl (Narcan Inj) 0.4 mg IV.PUSH UNSCH PRN PRN Reason: SEE LABEL COMMENTS Ondansetron HCl (Zofran Inj) 4 mg IV.PUSH Q6H PRN PRN Reason: NAUSEA OR VOMITING Last Admin: 04/24/18 17:01 Dose: 4 mg Pantoprazole Sodium (Protonix Inj) 40 mg IV.PUSH Q12HR [facility] Last Admin: 04/28/18 10:01 Dose: 40 mg Prednisone (Deltasone) 10 mg PO BID [facility] Last Admin: 04/28/18 09:59 Dose: 10 mg Senna/Docusate Sodium (Rupa-Colace) 1 tab PO BID [facility] Last Admin: 04/28/18 10:00 Dose: Not Given Sennosides (Senokot) 17.2 mg PO Q12H PRN PRN Reason: Moderate Constipation Sodium Chloride (Ns Flush) 2 ml IV.FLUSH PRN PRN PRN Reason: FLUSH AFTER USING IV ACCESS Last Admin: 04/19/18 16:56 Dose: 2 ml Vancomycin HCl (Vancomycin Po) 125 mg NG/OG QID [facility] Last Admin: 04/28/18 12:30 Dose: 125 mg Exam Vital signs: Vital Signs 04/27/18 20:00 04/27/18 21:30 04/28/18 00:00 Temperature 98.2 F 97.4 F L Pulse Rate 98 H 108 H 109 H Respiratory Rate 18 20 16 Blood Pressure 132/60 142/67 H Pulse Oximetry 90 L 90 L 81 L 04/28/18 00:58 04/28/18 02:52 04/28/18 04:00 Temperature 97.6 F Pulse Rate 111 H 72 Respiratory Rate 20 19 Blood Pressure 132/76 Pulse Oximetry 93 L 90 L 04/28/18 07:46 04/28/18 08:00 04/28/18 09:54 Temperature 98.4 F Pulse Rate 107 H 111 H 107 H Respiratory Rate 16 17 Blood Pressure 123/60 Pulse Oximetry 94 L 94 L 04/28/18 12:00 04/28/18 14:00 04/28/18 16:00 Temperature 97.4 F L 97.8 F Pulse Rate 112 H 93 H 81 Respiratory Rate 17 24 15 Blood Pressure 119/59 L 122/59 L 102/58 L Pulse Oximetry 94 L 93 L 98 Intake & Output 04/27/18 04/28/18 04/28/18 18:59 06:59 18:59 Intake Total 300 / 300 1100 / 1100 350 / 350 Output Total 1230 / 1230 Balance 300 / 300 -130 / -130 350 / 350 Intake: IV 300 / 300 1100 / 1100 350 / 350 D5W/1/2NS + KCL 20 mEq Inj 1, 1000 / 1000 000 ML @ 60 mls/hr IV.CONT . [id number] [facility] Rx#:[id number] Maxipime Inj 2,000 MG In NS Inj 100 / 100 100 ML @ 200 mls/hr IV.SIG Q12H [facility] Rx#:[id number] Diflucan 400 mg Premix Bag 200 200 / 200 200 / 200 ML @ 100 mls/hr IV.SIG Q24H [facility] Rx#:[id number] Zosyn 3.375 GM Premix 50 ML @ 100 / 100 100 / 100 50 / 50 100 mls/hr IV.SIG Q6H [facility] Rx#: [id number] Output: Urine 1200 / 1200 Wound Drainage 30 / 30 # 1 Lower Anterior Medial 30 / 30 Abdomen Other: Date of Last Bowel Movement 04/26/18 - Constitutional no acute distress - Routine HEENT Exam Head: Present: normocephalic Eye: Present: PERRL ENT: Present: mucous membranes moist - Routine Neck Exam Present: supple - Routine Respiratory Exam Present: decreased breath sounds, rhonchi Comments: Patient has coarse rhonchi throughout bilaterally. - Routine Cardiovascular Exam Present: S1, S2. Absent: murmur, gallop, rubs - Routine Abdominal Exam Present: soft, normoactive bowel sounds, tenderness - Routine Extremities Exam Present: full ROM, pulses intact, normal capillary refill. Absent: cyanosis, clubbing, edema - Routine Skin Exam Present: intact - Routine Neurological Exam Present: oriented X3 Results 04/28/18 05:59 04/28/18 05:59 Cardiac Enzymes 04/27/18 04/28/18 Range/Units 04:13 05:59 AST 16 (15-37) U/L B-Natriuretic Peptide 62 (0-100) pg/mL Coagulation 04/27/18 Range/Units 04:13 B-Natriuretic Peptide 62 (0-100) pg/mL CBC 04/28/18 Range/Units 05:59 WBC 23.6 H (4.0-11.0) th/mm3 RBC 4.04 (4.00-5.30) mil/mm3 Hgb 10.2 L (11.6-15.3) gm/dL Hct 31.9 L (35.0-46.0) % Plt Count 308 D (150-450) th/mm3 Neut # (Auto) 21.4 H (1.8-7.7) th/mm3 Lymph # (Auto) 1.3 (1.0-4.8) th/mm3 Curry # (Auto) 0.8 (0.0-0.9) th/mm3 Eos # (Auto) 0.0 (0.0-0.4) th/mm3 Baso # (Auto) 0.0 (0.0-0.2) th/mm3 Comprehensive Metabolic Panel 04/28/18 Range/Units 05:59 Sodium 136 (136-145) meq/L Potassium 3.6 (3.5-5.1) meq/L Chloride 91 L (98-107) meq/L Carbon Dioxide 34.9 H (21.0-32.0) meq/L BUN 4 L (7-18) mg/dL Creatinine 0.38 L (0.50-1.00) mg/dL Calcium 8.4 L (8.5-10.1) mg/dL AST 16 (15-37) U/L ALT 8 L (10-53) U/L Alkaline Phosphatase 121 H (45-117) U/L Total Protein 5.7 L D (6.4-8.2) g/dL Albumin 1.5 L (3.4-5.0) g/dL Intake and Output 04/28/18 04/28/18 04/28/18 06:59 14:59 22:59 Intake Total 100 / 100 350 / 350 Output Total 1230 / 1230 Balance -1130 / -1130 350 / 350 Intake: IV 100 / 100 350 / 350 Maxipime Inj 2,000 MG In NS Inj 100 / 100 100 ML @ 200 mls/hr IV.SIG Q12H [facility] Rx#:[id number] Diflucan 400 mg Premix Bag 200 200 / 200 ML @ 100 mls/hr IV.SIG Q24H [facility] Rx#:[id number] Zosyn 3.375 GM Premix 50 ML @ 100 / 100 50 / 50 100 mls/hr IV.SIG Q6H [facility] Rx#: [id number] Output: Urine 1200 / 1200 Wound Drainage # 1 Lower Anterior Medial Abdomen Other: Date of Last Bowel Movement 04/26/18 Assessment and Plan - Assessment (1) Atrial fibrillation with RVR Code(s): I48.91 - Unspecified atrial fibrillation Status: Resolved Onset Date: ~04/20/18 (2) Asthma exacerbation in COPD Code(s): J44.1 - Chronic obstructive pulmonary disease with (acute) exacerbation ; J45.901 - Unspecified asthma with (acute) exacerbation Status: Chronic (3) Diabetes Code(s): E11.9 - Type 2 diabetes mellitus without complications Status: Chronic (4) Alcohol use Code(s): Z78.9 - Other specified health status Status: Chronic (5) History of peptic ulcer disease Code(s): Z87.11 - Personal history of peptic ulcer disease Status: Chronic (6) Tobacco use Code(s): Z72.0 - Tobacco use Status: Chronic (7) Abdominal pain Code(s): R10.9 - Unspecified abdominal pain Status: Acute (8) Duodenal ulcer with perforation Code(s): K26.5 - Chronic or unspecified duodenal ulcer with perforation Status : Acute (9) Pneumonia Code(s): J18.9 - Pneumonia, unspecified organism Status: Acute - Plan Patient currently in sinus rhythm, continue diltiazem as prescribed. Patient having brief episodes of atrial fib with RVR nonsustained, risk factors of full anticoagulation is likely higher than the benefit at this time will recommend baby aspirin. Increase activity as patient tolerates. We will continue to follow during hospitalization. The patient was seen and evaluated by Dr. Canales who participated in care, management and decision-making. - Attending Attestation Patient seen and examined. I reviewed and agree with the evaluation and plan as presented. Brief episodes of paroxysmal AF w RVR. Continue diltiazem. Risk of full anticoagulation likely higher than its benefit. Continue monitoring. (3) Diabetes Qualifiers: Diabetes mellitus type: type 2 Diabetes mellitus complication status: with hyperglycemia (7) Abdominal pain Qualifiers: Abdominal location: generalized Qualified Code(s): R10.84 - Generalized abdominal pain
[2018-04-28 17:45] LABS: Lymphocytes,Pleural Fluid 7 %; Mesothelial,Pleural Fluid 6 %; Monocytes,Pleural Fluid 3 %; Neutrophils,Pleural Fluid 83 %
[2018-04-28 17:46] LABS: RBC,Pleural Fluid 1165 /mm3 (0-0)
--- NOTE | 2018-04-28 17:56 | ECG ---
Date Performed: 04/28/2018 Time Performed: 11:34:30 PTAGE: 67 years EKG: SINUS TACHYCARDIA POSSIBLE LEFT ATRIAL ENLARGEMENT Since the previous tracing, no significa nt change noted ABNORMAL RHYTHM ECG PREVIOUS TRACING : 04/20/2018 10.35 DOCTOR: Ada Alejo Interpretating Date/Time 04/28/2018 17:53:02
--- NOTE | 2018-04-28 19:00 | P.PN ---
Subjective Interval history: ALERT NOW IN C INCREASEW SOB THIS AM THORACENTESIS DONE WITH IMPROVEMENT Physical Exam Vital signs: Vital Signs 04/27/18 20:00 04/27/18 21:30 04/28/18 00:00 Temperature 98.2 F 97.4 F L Pulse Rate 98 H 108 H 109 H Respiratory Rate 18 20 16 Blood Pressure 132/60 142/67 H Pulse Oximetry 90 L 90 L 81 L 04/28/18 00:58 04/28/18 02:52 04/28/18 04:00 Temperature 97.6 F Pulse Rate 111 H 72 Respiratory Rate 20 19 Blood Pressure 132/76 Pulse Oximetry 93 L 90 L 04/28/18 07:46 04/28/18 08:00 04/28/18 09:54 Temperature 98.4 F Pulse Rate 107 H 111 H 107 H Respiratory Rate 16 17 Blood Pressure 123/60 Pulse Oximetry 94 L 94 L 04/28/18 12:00 04/28/18 14:00 04/28/18 16:00 Temperature 97.4 F L 97.8 F Pulse Rate 112 H 93 H 81 Respiratory Rate 17 24 15 Blood Pressure 119/59 L 122/59 L 102/58 L Pulse Oximetry 94 L 93 L 98 04/28/18 18:00 Temperature Pulse Rate 82 Respiratory Rate Blood Pressure Pulse Oximetry Intake & Output 04/27/18 04/28/18 04/28/18 18:59 06:59 18:59 Intake Total 300 / 300 1100 / 1100 470 / 470 Output Total 1230 / 1230 1200 / 1200 Balance 300 / 300 -130 / -130 -730 / -730 Intake: IV 300 / 300 1100 / 1100 350 / 350 D5W/1/2NS + KCL 20 mEq Inj 1, 1000 / 1000 000 ML @ 60 mls/hr IV.CONT . [id number] [facility] Rx#:[id number] Maxipime Inj 2,000 MG In NS Inj 100 / 100 100 ML @ 200 mls/hr IV.SIG Q12H [facility] Rx#:[id number] Diflucan 400 mg Premix Bag 200 200 / 200 200 / 200 ML @ 100 mls/hr IV.SIG Q24H [facility] Rx#:[id number] Zosyn 3.375 GM Premix 50 ML @ 100 / 100 100 / 100 50 / 50 100 mls/hr IV.SIG Q6H [facility] Rx#: [id number] Oral 120 / 120 Output: Urine 1200 / 1200 Pleural Fluid 1200 / 1200 Wound Drainage 30 / 30 0 / 0 # 1 Lower Anterior Medial 30 / 30 0 / 0 Abdomen Other: # Voids 0 Date of Last Bowel Movement 04/26/18 # Bowel Movements 0 Narrative: GENERAL: sitting up in bed. awake appears uncomfortable. SKIN: Warm and dry. HEAD: Normocephalic. EYES: No scleral icterus. No injection or drainage. NECK: Supple, trachea midline. No JVD or lymphadenopathy. CARDIOVASCULAR: Regular rate and rhythm without murmurs, gallops, or rubs. RESPIRATORY: Breath sounds equal bilaterally. No accessory muscle use. GASTROINTESTINAL: Abdomen soft, non-tender, nondistended. MUSCULOSKELETAL: No cyanosis, or edema. BACK: Nontender without obvious deformity. No CVA tenderness. - Urinary Catheter Management Indwelling Urethral Catheter Cath placed during this visit: yes Urethral indwelling: Yes Reason for continuing: Hourly intake/output Insertion date: 04/19/18 Results - Labs CBC & Chem 7: 04/28/18 05:59 04/28/18 05:59 Laboratory Results - last 24 hr 04/27/18 04/28/18 04/28/18 04:13 02:13 04:47 WBC RBC Hgb Hct MCV MCH MCHC RDW Plt Count MPV Prelim Diff (Auto) Neut % (Auto) Lymph % (Auto) Imperial % (Auto) Eos % (Auto) Baso % (Auto) Neut # (Auto) Lymph # (Auto) Imperial # (Auto) Eos # (Auto) Baso # (Auto) WBC Differential Seg Neuts % (Manual) Band Neuts % (Manual) Lymphocytes % (Manual) Monocytes % (Manual) Myelocytes % (Man) Abs Neuts (Manual) Differential Comment Toxic Granulation Dohle Bodies Platelet Estimate Platelet Morphology Puncture Site Right radial Left radial Patient Temperature 98.6 98.6 O2 Saturation 79 L* 92 ABG pH 7.43 H 7.41 ABG pCO2 53 H* 56 H* ABG pO2 49 L* 75 ABG HCO3 34 H 35 H ABG O2 Content 14.5 13.1 ABG Base Excess 9.6 H 10.0 H ABG Methemoglobin 1.0 1.0 Jamil Test Present Present Hemoglobin 13.1 10.1 L Carboxyhemoglobin 2.0 2.1 O2 Delivery Device Simple mask Non-rebreathing mask Liter Flow 7.00 13.00 Critical Value Yes Yes Sodium Potassium Chloride Carbon Dioxide Anion Gap BUN Creatinine Estimated GFR Random Glucose Calcium Phosphorus Magnesium Total Bilirubin AST ALT Alkaline Phosphatase B-Natriuretic Peptide 62 Total Protein Albumin Pleural pH Pleural RBC Pleural Nuc Cells Pleural Neutrophils Pleural Lymphocytes Pleural Monocytes Pleural Mesothelial Pleural Other Cells Pleural Fluid Comment Pleural Total Protein Pleural LDH Pleural Glucose 04/28/18 04/28/18 04/28/18 05:59 05:59 12:27 WBC 23.6 H RBC 4.04 Hgb 10.2 L Hct 31.9 L MCV 78.8 L MCH 25.1 L MCHC 31.9 L RDW 19.6 H Plt Count 308 D MPV 8.4 Prelim Diff (Auto) Slide review pending Neut % (Auto) 90.7 H Lymph % (Auto) 5.7 L Imperial % (Auto) 3.5 Eos % (Auto) 0.0 Baso % (Auto) 0.1 Neut # (Auto) 21.4 H Lymph # (Auto) 1.3 Imperial # (Auto) 0.8 Eos # (Auto) 0.0 Baso # (Auto) 0.0 WBC Differential Manual diff final Seg Neuts % (Manual) 95 H Band Neuts % (Manual) 1 Lymphocytes % (Manual) 1 L Monocytes % (Manual) 2 Myelocytes % (Man) 1 H Abs Neuts (Manual) 22.9 H Differential Comment . Toxic Granulation 1+ H Dohle Bodies Present H Platelet Estimate Normal Platelet Morphology Enlarged H Puncture Site Left radial Patient Temperature 98.6 O2 Saturation 92 ABG pH 7.38 ABG pCO2 65 H* ABG pO2 77 ABG HCO3 37 H ABG O2 Content 11.7 L ABG Base Excess 11.9 H ABG Methemoglobin 0.9 Jamil Test Present Hemoglobin 9.0 L Carboxyhemoglobin 1.9 O2 Delivery Device Non-rebreathing mask Liter Flow 15.00 Critical Value Yes Sodium 136 Potassium 3.6 Chloride 91 L Carbon Dioxide 34.9 H Anion Gap 10 BUN 4 L Creatinine 0.38 L Estimated GFR Greater than 89 Random Glucose 154 H Calcium 8.4 L Phosphorus 4.0 Magnesium 1.7 Total Bilirubin 0.2 AST 16 ALT 8 L Alkaline Phosphatase 121 H B-Natriuretic Peptide Total Protein 5.7 L D Albumin 1.5 L Pleural pH Pleural RBC Pleural Nuc Cells Pleural Neutrophils Pleural Lymphocytes Pleural Monocytes Pleural Mesothelial Pleural Other Cells Pleural Fluid Comment Pleural Total Protein Pleural LDH Pleural Glucose 04/28/18 04/28/18 14:25 14:25 WBC RBC Hgb Hct MCV MCH MCHC RDW Plt Count MPV Prelim Diff (Auto) Neut % (Auto) Lymph % (Auto) Imperial % (Auto) Eos % (Auto) Baso % (Auto) Neut # (Auto) Lymph # (Auto) Imperial # (Auto) Eos # (Auto) Baso # (Auto) WBC Differential Seg Neuts % (Manual) Band Neuts % (Manual) Lymphocytes % (Manual) Monocytes % (Manual) Myelocytes % (Man) Abs Neuts (Manual) Differential Comment Toxic Granulation Dohle Bodies Platelet Estimate Platelet Morphology Puncture Site Patient Temperature O2 Saturation ABG pH ABG pCO2 ABG pO2 ABG HCO3 ABG O2 Content ABG Base Excess ABG Methemoglobin Jamil Test Hemoglobin Carboxyhemoglobin O2 Delivery Device Liter Flow Critical Value Sodium Potassium Chloride Carbon Dioxide Anion Gap BUN Creatinine Estimated GFR Random Glucose Calcium Phosphorus Magnesium Total Bilirubin AST ALT Alkaline Phosphatase B-Natriuretic Peptide Total Protein Albumin Pleural pH 8.0 Pleural RBC 1165 H Pleural Nuc Cells 2757 H Pleural Neutrophils 83 Pleural Lymphocytes 7 Pleural Monocytes 3 Pleural Mesothelial 6 Pleural Other Cells 1 Pleural Fluid Comment Pleural Total Protein 2.4 Pleural LDH 175 Pleural Glucose 134 - Imaging Impressions Chest X-Ray 04/28/18 00:00 CONCLUSION: Cardiomegaly and findings of congestive heart failure. There has been no significant change when compared to the prior exam. Chest X-Ray 04/28/18 14:41 CONCLUSION: No evidence of pneumothorax following thoracentesis. - Procedures Exploratory laparotomy repair of perforated duodenal ulcer with Michel patch Assessment and Plan - Plan COPD RESPIRATORY FAILURE ON O2 PLEURAL EFFUSION POST THORACENTESIS S/P ABDOMINAL SURGERY PLAN O2 NEEDED BRONCHODILATOR THERAPY INCREASE ACTIVITY
[2018-04-28] MEDS: Acetaminophen-HYDROcodone 325/7.5 Liq 15 ML UDC NG/OG PRN (21:21)
[2018-04-29] MEDS: HYDROmorphone PF Inj 2 MG/ML Vial IV.PUSH PRN (00:09)
[2018-04-29 04:31] LABS: Hematocrit 30.1 % (35.0-46.0); Hemoglobin 9.2 gm/dL (11.6-15.3); Lymph # (Auto) 0.3 th/mm3 (1.0-4.8); Lymph % (Auto) 1.8 % (9.0-44.0); Mean Corpuscular Hemoglobin 24.8 pg (27.0-34.0); Mean Corpuscular Volume 80.9 fL (80.0-100.0); Mono # (Auto) 0.7 th/mm3 (0.0-0.9); Mono % (Auto) 4.6 % (0.0-8.0); Neut % (Auto) 93.6 % (16.0-70.0); Platelet Count 317 th/mm3 (150-450); Red Blood Count 3.72 mil/mm3 (4.00-5.30)
[2018-04-29 04:34] LABS: Mean Corpuscular HGB Conc 30.7 % (32.0-36.0)
[2018-04-29 04:56] LABS: Albumin 1.4 g/dL (3.4-5.0); Anion Gap 9 meq/L (5-15); Blood Urea Nitrogen 9 mg/dL (7-18); Calcium 8.3 mg/dL (8.5-10.1); Carbon Dioxide 34.1 meq/L (21.0-32.0); Chloride 93 meq/L (98-107); Glomerular Filtration Rate Greater Than 89 mL/min (>89); Glucose,Random 133 mg/dL (74-106); Magnesium 1.7 mg/dL (1.5-2.5); Potassium 4.1 meq/L (3.5-5.1); Sodium 136 meq/L (136-145)
[2018-04-29 05:01] LABS: Phosphorus 5.3 mg/dL (2.5-4.9)
[2018-04-29 05:16] LABS: Platelet Estimate Normal (Normal); Platelet Morphology Normal (Normal)
[2018-04-29 05:17] LABS: Ovalocytes 1+
[2018-04-29] MEDS: metroNIDAZOLE 500 MG Tablet PO SCH ×3 (06:35→21:13)
--- NOTE | 2018-04-29 08:05 | XR ---
EXAM DATE: 04/29/2018 7:58 AM EDT AGE/SEX: 67 years / Female INDICATIONS: Shortness of breath. CLINICAL DATA: This is the patient's initial encounter. Patient reports that signs and symptoms have been present for 1 day and indicates a pain score of 0/10. MEDICAL/SURGICAL HISTORY: . Chronic obstructive pulmonary disease. Diabetes. Lupus . None. COMPARISON: [facility] – [place], CHEST 1V SINGLE AP, 04/28/2018. . FINDINGS: There is interval worsening of diffuse pulmonary infiltrates bilaterally consistent with worsening pu lmonary edema or pneumonia. Clinical correlation is recommended. The heart is stable. Scoliosis and d egenerative changes of the thoracic spine are noted. CONCLUSION: Interval worsening of diffuse pulmonary infiltrates bilaterally consistent with worsening pulmonary e jaclyn or pneumonia. Clinical correlation is recommended. Electronically signed by: Javier Adam MD 04/29/2018 8:04 AM EDT
[2018-04-29] MEDS: Acetaminophen-HYDROcodone 325/7.5 Liq 15 ML UDC NG/OG PRN ×4 (09:01→22:56)
[2018-04-29] MEDS: Enoxaparin Inj 40 MG/0.4 ML Syringe SQ SCH (09:38)
[2018-04-29] MEDS: Lactobacillus Acidophilus/L. Spores Tablet NG/OG SCH ×3 (09:39→18:08)
[2018-04-29] MEDS: Senna/Docusate Sodium 8.6/50 MG Tablet PO SCH ×2 (09:39→20:27)
[2018-04-29] MEDS: predniSONE 10 MG Tablet PO SCH ×2 (09:39→20:27)
[2018-04-29] MEDS: Pantoprazole Inj 40 MG Vial IV.PUSH SCH ×2 (09:39→20:27)
[2018-04-29] MEDS: guaiFENesin 600 MG ER Tablet PO SCH ×2 (09:39→20:27)
[2018-04-29] MEDS: dilTIAZem 30 MG Tablet PO SCH ×4 (09:39→20:27)
[2018-04-29] MEDS: Megestrol Acetate Liq 400 MG/10 ML UDC PO SCH ×2 (09:42→20:27)
--- NOTE | 2018-04-29 12:58 | P.PNGS ---
Subjective Interval history: DAILY PROGRESS NOTE FOR SURGICAL ATTENDING, DR. MITRA LOPEZ Resting in bed Concerned about pain medications AVNI Malcolm at bedside Physical Exam Vital signs: Vital Signs 04/28/18 14:00 04/28/18 16:00 04/28/18 18:00 Temperature 97.8 F Pulse Rate 93 H 81 82 Respiratory Rate 24 15 Blood Pressure 122/59 L 102/58 L Pulse Oximetry 93 L 98 04/28/18 20:00 04/28/18 20:55 04/28/18 21:02 Temperature 97.5 F L Pulse Rate 80 87 Respiratory Rate 24 30 H Blood Pressure 109/55 L Pulse Oximetry 89 L 88 L 04/28/18 21:55 04/29/18 00:00 04/29/18 00:15 Temperature 97.7 F Pulse Rate 76 Respiratory Rate 12 Blood Pressure 105/55 L Pulse Oximetry 95 97 95 04/29/18 04:00 04/29/18 04:17 04/29/18 04:25 Temperature 97.9 F Pulse Rate 80 Respiratory Rate 16 Blood Pressure 134/62 Pulse Oximetry 94 L 93 L 100 04/29/18 07:00 04/29/18 07:30 04/29/18 08:00 Temperature Pulse Rate 77 Respiratory Rate 14 Blood Pressure Pulse Oximetry 92 L 90 L 92 L Intake & Output 04/28/18 04/29/18 04/29/18 18:59 06:59 18:59 Intake Total 470 / 470 580 / 580 100 / 100 Output Total 1200 / 1200 Balance -730 / -730 580 / 580 100 / 100 Weight 60.6 kg Intake: IV 350 / 350 100 / 100 100 / 100 Ofirmev Inj 1,000 mg In 100 ml 100 / 100 @ 400 mls/hr IV.SIG ONCE ONE Rx #:[id number] Maxipime Inj 2,000 MG In NS Inj 100 / 100 100 / 100 100 ML @ 200 mls/hr IV.SIG Q12H [facility] Rx#:[id number] Diflucan 400 mg Premix Bag 200 200 / 200 ML @ 100 mls/hr IV.SIG Q24H [facility] Rx#:[id number] Zosyn 3.375 GM Premix 50 ML @ 50 / 50 100 mls/hr IV.SIG Q6H [facility] Rx#: [id number] Oral 120 / 120 480 / 480 Output: Pleural Fluid 1200 / 1200 Wound Drainage 0 / 0 # 1 Lower Anterior Medial 0 / 0 Abdomen Other: # Voids 0 2 Date of Last Bowel Movement 04/26/18 04/26/18 04/26/18 # Bowel Movements 0 0 Narrative: Alert and awake Abd: soft; minimall tender in RUQ; incisions c/d/i - Additional findings Additional findings: ITS Impressions Abdomen/Pelvis CT 04/19/18 16:41 CONCLUSION: 1. Free fluid or free air throughout the abdomen. I don't see an obvious etiology for it. There is no evidence of peptic ulcer disease or definite colonic wall thickening or other than some slightly narrowed loops of transverse colon in the midline. I do not see a normal or abnormal appendix 2. Gallbladder is distended. No stone or wall thickening is identified. Chest CTA 04/19/18 16:41 CONCLUSION: 1. No evidence of deep venous thrombosis. 2. Ascites in the upper abdomen and multiple small collections of free air. 3. The esophagus is prominent with air and fluid. These findings were called to [facility] the emergency room at 1852 hours. Chest X-Ray 04/29/18 00:00 CONCLUSION: Interval worsening of diffuse pulmonary infiltrates bilaterally consistent with worsening pulmonary edema or pneumonia. Clinical correlation is recommended. - Urinary Catheter Management Indwelling Urethral Catheter Cath placed during this visit: yes Urethral indwelling: Yes Reason for continuing: Hourly intake/output Insertion date: 04/19/18 Assessment and Plan - Assessment (1) Duodenal ulcer with perforation Code(s): K26.5 - Chronic or unspecified duodenal ulcer with perforation Status : Acute Plan: 67yo female s/p duodenal perforation, stable -Moved to [facility]; s/p thoracentesis with 1.2L removed -Breathing easier now -Lasix IV 40 mg once now -Pain control -Still with low appetite--- encourage small meals and Ensure shakes -Dr. Serrato following -Continue IV antibiotics -Continue Prednisone -WBC improved--- 16K -Continue PT (2) Atrial fibrillation with RVR Code(s): I48.91 - Unspecified atrial fibrillation Status: Resolved Onset Date: ~04/20/18 (3) History of peptic ulcer disease Code(s): Z87.11 - Personal history of peptic ulcer disease Status: Chronic (4) Alcohol use Code(s): Z78.9 - Other specified health status Status: Chronic (5) Tobacco use Code(s): Z72.0 - Tobacco use Status: Chronic (6) Asthma exacerbation in COPD Code(s): J44.1 - Chronic obstructive pulmonary disease with (acute) exacerbation ; J45.901 - Unspecified asthma with (acute) exacerbation Status: Chronic (7) Current chronic use of systemic steroids Code(s): Z79.52 - [facility] (current) use of systemic steroids Status: Chronic (8) Pleural effusion, right Code(s): J90 - Pleural effusion, not elsewhere classified Status: Acute - Attending Attestation NOTE FOR SURGICAL ATTENDING, DR. MITRA LOPEZ I agree with above assessment and plan. The exam, history, and the medical decision-making described in the above note were completed with the assistance of the mid-level provider. I reviewed and agree with the findings presented. I attest that I had a [id number] encounter with the patient on the same day, and personally performed and documented my assessment and findings in the medical record. The following services were provided during this hospital visit: Chart data review, vital sign assessments/reviewing monitor data Review of consultations notes if present. Medication orders/review and/or management Ordering and/or reviewing lab tests Ordering and/or interpreting/reviewing x-rays and/or diagnostic studies Care of the patient and discussion of the patient with the care team Documentation time To help prompt me to consider important information that might be impacting today's encounter and assessment, Information from prior notes written by myself or my colleagues may have been "brought forward/copy and pasted" into today's note.
--- NOTE | 2018-04-29 13:13 | P.PNID ---
Subjective Remarks: Patient is a 67-year-old female, brought into the hospital for evaluation of 2 day history of abdominal distention and abdominal pain. She apparently has been drinking alcohol most of the day because of the abdominal pain. She had some nausea and vomiting, but has had normal stool. She denies any fever or chills. She has known COPD and has had some complaints of shortness of breath but no cough or any chest pain. On evaluation, CT of the abdomen and pelvis showed free air with free fluid. She was taken to surgery emergently, and had laparoscopic surgery, repair of a perforated duodenal ulcer with Michel patch, with obvious finding of contamination, and abscess. Postoperatively she had some brief problem with paroxysmal atrial fibrillation. Since postop she her appetite has been poor. She had some diarrhea briefly, but her stools have been normal. She is still has poor p.o. intake although it has improved a little bit. Complains of abdominal pain. Patient stated that since last night her shortness of breath has gotten worse. She is currently on a nonrebreather mask, and she was on a BiPAP machine overnight. Patient still has the EARNESTINE drain in place, and output is serous. Since April 23 she has developed mild leukocytosis of 12,000, but since April 25 her white count has been greater than 20,000. Patient has been started on antibiotics. She is currently on Diflucan, Augmentin, and Zosyn. She has had some trouble swallowing pills. Patient is coughing up phlegm and brings up usually yellowish phlegm. She has no urinary complaints. Her last 2 chest x-ray has shown a large pleural effusion on the right and a small effusion on the left Infectious disease consultation has been requested to evaluate the patient with worsening leukocytosis. She is afebrile. Notes reviewed Now in ICU Had thoracentesis R, has elevated WBC in fluid CXR today compared to post tap with worsening infiltrates No BM since 04/27 WBC lower at 16K C/O R sided abdominal pain Appetite a little better Antibiotics: Cefepime Flagyl Diflucan PO vancomycin Past Medical History: C. difficile colitis COPD (chronic obstructive pulmonary disease) Diabetes Lupus History of total left hip replacement Hx of tubal ligation Allergies/Adverse Reactions: Allergies No Known Allergies Allergy (Unverified 03/12/18 19:51) Objective Vital Signs 04/28/18 14:00 04/28/18 16:00 04/28/18 18:00 Temperature 97.8 F Pulse Rate 93 H 81 82 Respiratory Rate 24 15 Blood Pressure 122/59 L 102/58 L Pulse Oximetry 93 L 98 04/28/18 20:00 04/28/18 20:55 04/28/18 21:02 Temperature 97.5 F L Pulse Rate 80 87 Respiratory Rate 24 30 H Blood Pressure 109/55 L Pulse Oximetry 89 L 88 L 04/28/18 21:55 04/29/18 00:00 04/29/18 00:15 Temperature 97.7 F Pulse Rate 76 Respiratory Rate 12 Blood Pressure 105/55 L Pulse Oximetry 95 97 95 04/29/18 04:00 04/29/18 04:17 04/29/18 04:25 Temperature 97.9 F Pulse Rate 80 Respiratory Rate 16 Blood Pressure 134/62 Pulse Oximetry 94 L 93 L 100 04/29/18 07:00 04/29/18 07:30 04/29/18 08:00 Temperature Pulse Rate 77 Respiratory Rate 14 Blood Pressure Pulse Oximetry 92 L 90 L 92 L Intake & Output 04/28/18 04/29/18 04/29/18 18:59 06:59 18:59 Intake Total 470 / 470 580 / 580 100 / 100 Output Total 1200 / 1200 Balance -730 / -730 580 / 580 100 / 100 Weight 60.6 kg Intake: IV 350 / 350 100 / 100 100 / 100 Ofirmev Inj 1,000 mg In 100 ml 100 / 100 @ 400 mls/hr IV.SIG ONCE ONE Rx #:[id number] Maxipime Inj 2,000 MG In NS Inj 100 / 100 100 / 100 100 ML @ 200 mls/hr IV.SIG Q12H [facility] Rx#:[id number] Diflucan 400 mg Premix Bag 200 200 / 200 ML @ 100 mls/hr IV.SIG Q24H [facility] Rx#:[id number] Zosyn 3.375 GM Premix 50 ML @ 50 / 50 100 mls/hr IV.SIG Q6H [facility] Rx#: [id number] Oral 120 / 120 480 / 480 Output: Pleural Fluid 1200 / 1200 Wound Drainage 0 / 0 # 1 Lower Anterior Medial 0 / 0 Abdomen Other: # Voids 0 2 Date of Last Bowel Movement 04/26/18 04/26/18 04/26/18 # Bowel Movements 0 0 04/28/18 14:10 Fluid - Pleural fluid Gram Stain - Final 04/28/18 14:10 Fluid - Pleural fluid Body Fluid Culture - Pending 04/28/18 14:25 Abscess - Chest Acid Fast Bacilli Smear - Pending 04/28/18 14:25 Abscess - Chest Mycobacterial Culture - Pending Lab - Hematology Results 04/28/18 04/29/18 05:59 04:15 WBC 23.6 H 16.0 H RBC 4.04 3.72 L Hgb 10.2 L 9.2 L Hct 31.9 L 30.1 L MCV 78.8 L 80.9 MCH 25.1 L 24.8 L MCHC 31.9 L 30.7 L RDW 19.6 H 20.0 H Plt Count 308 D 317 MPV 8.4 8.0 Prelim Diff (Auto) Slide review pending Slide review pending Neut % (Auto) 90.7 H 93.6 H Lymph % (Auto) 5.7 L 1.8 L Sandoval % (Auto) 3.5 4.6 Eos % (Auto) 0.0 0.0 Baso % (Auto) 0.1 0.0 Neut # (Auto) 21.4 H 15.0 H Lymph # (Auto) 1.3 0.3 L Sandoval # (Auto) 0.8 0.7 Eos # (Auto) 0.0 0.0 Baso # (Auto) 0.0 0.0 WBC Differential Manual diff final . Diff Scan Auto diff confirmed Seg Neuts % (Manual) 95 H Band Neuts % (Manual) 1 Lymphocytes % (Manual) 1 L Monocytes % (Manual) 2 Myelocytes % (Man) 1 H Abs Neuts (Manual) 22.9 H Differential Comment . . Toxic Granulation 1+ H Dohle Bodies Present H Platelet Estimate Normal Normal Platelet Morphology Enlarged H Normal Ovalocytes 1+ H Lab - Chemistry Results 04/27/18 04/28/18 04/29/18 04:13 05:59 04:15 Sodium 136 136 Potassium 3.6 4.1 Chloride 91 L 93 L Carbon Dioxide 34.9 H 34.1 H Anion Gap 10 9 BUN 4 L 9 Creatinine 0.38 L 0.45 L Estimated GFR Greater than 89 Greater than 89 Random Glucose 154 H 133 H Calcium 8.4 L 8.3 L Phosphorus 4.0 5.3 H D Magnesium 1.7 1.7 Total Bilirubin 0.2 AST 16 ALT 8 L Alkaline Phosphatase 121 H B-Natriuretic Peptide 62 Total Protein 5.7 L D Albumin 1.5 L 1.4 L Imaging: ITS Impressions Abdomen/Pelvis CT 04/19/18 16:41 CONCLUSION: 1. Free fluid or free air throughout the abdomen. I don't see an obvious etiology for it. There is no evidence of peptic ulcer disease or definite colonic wall thickening or other than some slightly narrowed loops of transverse colon in the midline. I do not see a normal or abnormal appendix 2. Gallbladder is distended. No stone or wall thickening is identified. Chest CTA 04/19/18 16:41 CONCLUSION: 1. No evidence of deep venous thrombosis. 2. Ascites in the upper abdomen and multiple small collections of free air. 3. The esophagus is prominent with air and fluid. Chest X-Ray 04/29/18 00:00 CONCLUSION: Interval worsening of diffuse pulmonary infiltrates bilaterally consistent with worsening pulmonary edema or pneumonia. Clinical correlation is recommended. Physical Exam: GENERAL: awake and alert, not in distress, up in chair, on nasal O2 SKIN: Cool and dry. No generalized rash, no ecchymoses and no evidence of embolic lesions. HEAD: Atraumatic. Normocephalic. No temporal wasting, or tenderness. EYES: Blanche conjunctiva. No petechia or hemorrhage. Pupils equal, round and reactive to light. Extraocular movements full and intact. No scleral icterus. No injection or drainage. EARS, NOSE AND THROAT: Nose without bleeding or purulent nasal discharge. No sinus tenderness. Mucous membranes pink and moist. No oral lesions noted.. NECK: Trachea midline. Supple and not tender, no meningeal signs CARDIOVASCULAR: Regular rate and rhythm. No rubs or gallops heard RESPIRATORY: Rales at the bases ABDOMEN: Distended abdomen, hypoactive bowel sound, mild diffuse tenderness, worse on R than L. EARNESTINE drain midline with serous fluid. Incisions from her laparoscopy dry with sutures, no evidence of infection. No guarding or rebound. EXTREMITIES: No clubbing, cyanosis, or edema. No joint effusion, has good ROM. No calf tenderness. Well perfused and warm. NEUROLOGICAL: Grossly non-focal. PSYCHIATRIC: Normal affect, calm and cooperative. LINE: No evidence of infection Assessment and Plan - Plan Impression Worsening leukocytosis, etiology? - has a very large effusion on R, ?PNA, ?infected fluid, ?sympathetic effusion - S/P laparoscopy for perf DU with abscess, ?post op abscess - no diarrhea - voiding ok COPD Respiratory failure, worse likely due to large effusion, better post tap Likely with PNA S/P laparoscopy fro perf DU Recommendation Follow C/S Continue cefepime Continue Flagyl Stop po vanco Continue Diflucan May need CT A/P if not better Monitor progress
--- NOTE | 2018-04-29 13:19 | P.PNCA ---
Subjective Interval history: Patient denies any chest pain, pressure, palpitations, dizziness or edema. Patient does still complain of mild shortness of breath with exertion and when she starts coughing. Patient is currently sitting up in chair resting comfortably. Physical Exam Vital signs: Vital Signs 04/28/18 14:00 04/28/18 16:00 04/28/18 18:00 Temperature 97.8 F Pulse Rate 93 H 81 82 Respiratory Rate 24 15 Blood Pressure 122/59 L 102/58 L Pulse Oximetry 93 L 98 04/28/18 20:00 04/28/18 20:55 04/28/18 21:02 Temperature 97.5 F L Pulse Rate 80 87 Respiratory Rate 24 30 H Blood Pressure 109/55 L Pulse Oximetry 89 L 88 L 04/28/18 21:55 04/29/18 00:00 04/29/18 00:15 Temperature 97.7 F Pulse Rate 76 Respiratory Rate 12 Blood Pressure 105/55 L Pulse Oximetry 95 97 95 04/29/18 04:00 04/29/18 04:17 04/29/18 04:25 Temperature 97.9 F Pulse Rate 80 Respiratory Rate 16 Blood Pressure 134/62 Pulse Oximetry 94 L 93 L 100 04/29/18 07:00 04/29/18 07:30 04/29/18 08:00 Temperature Pulse Rate 77 Respiratory Rate 14 Blood Pressure Pulse Oximetry 92 L 90 L 92 L Intake & Output 04/28/18 04/29/18 04/29/18 18:59 06:59 18:59 Intake Total 470 / 470 580 / 580 100 / 100 Output Total 1200 / 1200 Balance -730 / -730 580 / 580 100 / 100 Weight 60.6 kg Intake: IV 350 / 350 100 / 100 100 / 100 Ofirmev Inj 1,000 mg In 100 ml 100 / 100 @ 400 mls/hr IV.SIG ONCE ONE Rx #:[id number] Maxipime Inj 2,000 MG In NS Inj 100 / 100 100 / 100 100 ML @ 200 mls/hr IV.SIG Q12H [facility] Rx#:[id number] Diflucan 400 mg Premix Bag 200 200 / 200 ML @ 100 mls/hr IV.SIG Q24H [facility] Rx#:[id number] Zosyn 3.375 GM Premix 50 ML @ 50 / 50 100 mls/hr IV.SIG Q6H [facility] Rx#: [id number] Oral 120 / 120 480 / 480 Output: Pleural Fluid 1200 / 1200 Wound Drainage 0 / 0 # 1 Lower Anterior Medial 0 / 0 Abdomen Other: # Voids 0 2 Date of Last Bowel Movement 04/26/18 04/26/18 04/26/18 # Bowel Movements 0 0 - Constitutional no acute distress - Routine HEENT Exam Head: Present: normocephalic Eye: Present: PERRL ENT: Present: mucous membranes moist - Routine Neck Exam Present: full ROM - Routine Respiratory Exam Present: decreased breath sounds, rhonchi, crackles - Routine Cardiovascular Exam Present: S1, S2. Absent: gallop, rubs - Routine Abdominal Exam Present: normoactive bowel sounds - Routine Extremities Exam Present: full ROM, pulses intact, normal capillary refill. Absent: cyanosis, clubbing, edema - Routine Skin Exam Present: intact - Routine Neurological Exam Present: oriented X3 - Detailed Neurological Exam: Coma Scale Eye Opening: Spontaneous Verbal Response: Oriented Motor Response: Obey commands Emmanuel Coma Scale Total: 15 - Routine Psychiatric Exam Present: normal affect - Urinary Catheter Management Indwelling Urethral Catheter Cath placed during this visit: yes Urethral indwelling: Yes Reason for continuing: Hourly intake/output Insertion date: 04/19/18 Assessment and Plan - Assessment (1) Atrial fibrillation with RVR Code(s): I48.91 - Unspecified atrial fibrillation Status: Resolved Onset Date: ~04/20/18 (2) Asthma exacerbation in COPD Code(s): J44.1 - Chronic obstructive pulmonary disease with (acute) exacerbation ; J45.901 - Unspecified asthma with (acute) exacerbation Status: Chronic (3) Diabetes Code(s): E11.9 - Type 2 diabetes mellitus without complications Status: Chronic (4) Alcohol use Code(s): Z78.9 - Other specified health status Status: Chronic (5) History of peptic ulcer disease Code(s): Z87.11 - Personal history of peptic ulcer disease Status: Chronic (6) Tobacco use Code(s): Z72.0 - Tobacco use Status: Chronic (7) Abdominal pain Code(s): R10.9 - Unspecified abdominal pain Status: Acute (8) Duodenal ulcer with perforation Code(s): K26.5 - Chronic or unspecified duodenal ulcer with perforation Status : Acute (9) Pneumonia Code(s): J18.9 - Pneumonia, unspecified organism Status: Acute - Plan Patient continues to remain in sinus rhythm, continue Cardizem as prescribed. Patient currently on Lovenox. The risk of halfway full anticoagulation outweighs the benefit at this time. ID evaluation in progress. Pulmonary evaluation in progress. Continue to increase activity as patient tolerates. We will continue to follow during her hospitalization. The patient was seen and evaluated by Dr. Canales who participated in care, management and decision-making. - Attending Attestation Patient seen and examined. I reviewed and agree with the evaluation and plan as presented. She stays in [facility]. Continue current program. (3) Diabetes Qualifiers: Diabetes mellitus type: type 2 Diabetes mellitus complication status: with hyperglycemia (7) Abdominal pain Qualifiers: Abdominal location: generalized Qualified Code(s): R10.84 - Generalized abdominal pain
--- NOTE | 2018-04-29 17:12 | P.PN ---
Subjective Interval history: ALERT NO DISTRESS UP IN CHAIR Physical Exam Vital signs: Vital Signs 04/28/18 18:00 04/28/18 20:00 04/28/18 20:55 Temperature 97.5 F L Pulse Rate 82 80 87 Respiratory Rate 24 30 H Blood Pressure 109/55 L Pulse Oximetry 89 L 04/28/18 21:02 04/28/18 21:55 04/29/18 00:00 Temperature 97.7 F Pulse Rate 76 Respiratory Rate 12 Blood Pressure 105/55 L Pulse Oximetry 88 L 95 97 04/29/18 00:15 04/29/18 04:00 04/29/18 04:17 Temperature 97.9 F Pulse Rate 80 Respiratory Rate 16 Blood Pressure 134/62 Pulse Oximetry 95 94 L 93 L 04/29/18 04:25 04/29/18 07:00 04/29/18 07:30 Temperature Pulse Rate 77 Respiratory Rate 14 Blood Pressure Pulse Oximetry 100 92 L 90 L 04/29/18 08:00 04/29/18 09:00 04/29/18 12:00 Temperature 98.0 F 98.4 F Pulse Rate 82 80 78 Respiratory Rate 24 22 Blood Pressure 122/57 L 104/52 L Pulse Oximetry 97 98 04/29/18 14:00 Temperature Pulse Rate 76 Respiratory Rate 15 Blood Pressure Pulse Oximetry Intake & Output 04/28/18 04/29/18 04/29/18 18:59 06:59 18:59 Intake Total 470 / 470 580 / 580 400 / 400 Output Total 1200 / 1200 Balance -730 / -730 580 / 580 400 / 400 Weight 60.6 kg Intake: IV 350 / 350 100 / 100 400 / 400 Ofirmev Inj 1,000 mg In 100 ml 100 / 100 @ 400 mls/hr IV.SIG ONCE ONE Rx #:[id number] Maxipime Inj 2,000 MG In NS Inj 100 / 100 100 / 100 100 / 100 100 ML @ 200 mls/hr IV.SIG Q12H [facility] Rx#:[id number] Diflucan 400 mg Premix Bag 200 200 / 200 200 / 200 ML @ 100 mls/hr IV.SIG Q24H [facility] Rx#:[id number] Zosyn 3.375 GM Premix 50 ML @ 50 / 50 100 mls/hr IV.SIG Q6H [facility] Rx#: [id number] Oral 120 / 120 480 / 480 Output: Pleural Fluid 1200 / 1200 Wound Drainage 0 / 0 # 1 Lower Anterior Medial 0 / 0 Abdomen Other: # Voids 0 2 Date of Last Bowel Movement 04/26/18 04/26/18 04/26/18 # Bowel Movements 0 0 Narrative: Alert and awake Abd: soft; minimall tender in RUQ; incisions c/d/i - Urinary Catheter Management Indwelling Urethral Catheter Cath placed during this visit: yes Urethral indwelling: Yes Reason for continuing: Hourly intake/output Insertion date: 04/19/18 Results - Labs CBC & Chem 7: 04/29/18 04:15 04/29/18 04:15 Laboratory Results - last 24 hr 04/28/18 04/29/18 04/29/18 14:25 04:15 04:15 WBC 16.0 H RBC 3.72 L Hgb 9.2 L Hct 30.1 L MCV 80.9 MCH 24.8 L MCHC 30.7 L RDW 20.0 H Plt Count 317 MPV 8.0 Prelim Diff (Auto) Slide review pending Neut % (Auto) 93.6 H Lymph % (Auto) 1.8 L [place] % (Auto) 4.6 Eos % (Auto) 0.0 Baso % (Auto) 0.0 Neut # (Auto) 15.0 H Lymph # (Auto) 0.3 L [place] # (Auto) 0.7 Eos # (Auto) 0.0 Baso # (Auto) 0.0 WBC Differential . Diff Scan Auto diff confirmed Differential Comment . Platelet Estimate Normal Platelet Morphology Normal Ovalocytes 1+ H Sodium 136 Potassium 4.1 Chloride 93 L Carbon Dioxide 34.1 H Anion Gap 9 BUN 9 Creatinine 0.45 L Estimated GFR Greater than 89 Random Glucose 133 H Calcium 8.3 L Phosphorus 5.3 H D Magnesium 1.7 Albumin 1.4 L Pleural RBC 1165 H Pleural Nuc Cells 2757 H Pleural Neutrophils 83 Pleural Lymphocytes 7 Pleural Monocytes 3 Pleural Mesothelial 6 Pleural Other Cells 1 Pleural Fluid Comment Microbiology 04/28/18 14:10 Fluid - Pleural fluid Gram Stain - Final 04/28/18 14:10 Fluid - Pleural fluid Body Fluid Culture - Preliminary No growth in 24 hours - Imaging Impressions Chest X-Ray 04/29/18 00:00 CONCLUSION: Interval worsening of diffuse pulmonary infiltrates bilaterally consistent with worsening pulmonary edema or pneumonia. Clinical correlation is recommended. - Procedures Exploratory laparotomy repair of perforated duodenal ulcer with Michel patch Assessment and Plan - Plan COPD RESPIRATORY FAILURE ON O2 PLEURAL EFFUSION POST THORACENTESIS S/P ABDOMINAL SURGERY PLAN O2 NEEDED BRONCHODILATOR THERAPY INCREASE ACTIVITY
[2018-04-29 19:18] LABS: Bacteria,Urine Rare /hpf; Bilirubin,Urine Negative (Negative); Clarity,Urine Clear (Clear); Color,Urine Straw (Yellw/Straw); Glucose,Urine (UA) Negative (Negative); Leukocyte Esterase,Urine Negative (Negative); Nitrite,Urine Negative (Negative); Specific Gravity,Urine 1.005 (1.002-1.035); Squamous Epithelial Cell,Urine <1 /hpf (0-5)
--- NOTE | 2018-04-29 19:18 | P.PNIM ---
Subjective Interval history: patient seen today around 2 PM. Says she is feeling better.shortness of breath is improving. Physical Exam Vital signs: Vital Signs 04/28/18 20:00 04/28/18 20:55 04/28/18 21:02 Temperature 97.5 F L Pulse Rate 80 87 Respiratory Rate 24 30 H Blood Pressure 109/55 L Pulse Oximetry 89 L 88 L 04/28/18 21:55 04/29/18 00:00 04/29/18 00:15 Temperature 97.7 F Pulse Rate 76 Respiratory Rate 12 Blood Pressure 105/55 L Pulse Oximetry 95 97 95 04/29/18 04:00 04/29/18 04:17 04/29/18 04:25 Temperature 97.9 F Pulse Rate 80 Respiratory Rate 16 Blood Pressure 134/62 Pulse Oximetry 94 L 93 L 100 04/29/18 07:00 04/29/18 07:30 04/29/18 08:00 Temperature 98.0 F Pulse Rate 77 82 Respiratory Rate 14 24 Blood Pressure 122/57 L Pulse Oximetry 92 L 90 L 97 04/29/18 09:00 04/29/18 12:00 04/29/18 14:00 Temperature 98.4 F Pulse Rate 80 78 76 Respiratory Rate 22 15 Blood Pressure 104/52 L Pulse Oximetry 98 04/29/18 16:00 Temperature 98.4 F Pulse Rate 88 Respiratory Rate 22 Blood Pressure 114/61 Pulse Oximetry 94 L Intake & Output 04/29/18 04/29/18 04/30/18 06:59 18:59 06:59 Intake Total 580 / 580 400 / 400 Balance 580 / 580 400 / 400 Weight 60.6 kg Intake: IV 100 / 100 400 / 400 Ofirmev Inj 1,000 mg In 100 ml 100 / 100 @ 400 mls/hr IV.SIG ONCE ONE Rx #:[id number] Maxipime Inj 2,000 MG In NS Inj 100 / 100 100 / 100 100 ML @ 200 mls/hr IV.SIG Q12H [facility] Rx#:[id number] Diflucan 400 mg Premix Bag 200 200 / 200 ML @ 100 mls/hr IV.SIG Q24H [facility] Rx#:[id number] Oral 480 / 480 Other: # Voids 2 Date of Last Bowel Movement 04/26/18 04/26/18 # Bowel Movements 0 Narrative: GENERAL: patient sitting up in chair at bedside. Appears comfortable. SKIN: Warm and dry. HEAD: Normocephalic. EYES: No scleral icterus. No injection or drainage. NECK: Supple, trachea midline. No JVD CARDIOVASCULAR: Regular rate and rhythm without murmurs, gallops, or rubs. RESPIRATORY: Breath sounds equal bilaterally. No accessory muscle use. GASTROINTESTINAL: Abdomen soft, non-tender, nondistended. incisions clean and dry and intact. MUSCULOSKELETAL: No cyanosis, or edema. BACK: Nontender without obvious deformity. No CVA tenderness. - Urinary Catheter Management Indwelling Urethral Catheter Cath placed during this visit: yes Urethral indwelling: Yes Reason for continuing: Hourly intake/output Insertion date: 04/19/18 Results - Labs CBC & Chem 7: 04/29/18 04:15 04/29/18 04:15 Laboratory Results - last 24 hr 04/29/18 04/29/18 04:15 04:15 WBC 16.0 H RBC 3.72 L Hgb 9.2 L Hct 30.1 L MCV 80.9 MCH 24.8 L MCHC 30.7 L RDW 20.0 H Plt Count 317 MPV 8.0 Prelim Diff (Auto) Slide review pending Neut % (Auto) 93.6 H Lymph % (Auto) 1.8 L [place] % (Auto) 4.6 Eos % (Auto) 0.0 Baso % (Auto) 0.0 Neut # (Auto) 15.0 H Lymph # (Auto) 0.3 L [place] # (Auto) 0.7 Eos # (Auto) 0.0 Baso # (Auto) 0.0 WBC Differential . Diff Scan Auto diff confirmed Differential Comment . Platelet Estimate Normal Platelet Morphology Normal Ovalocytes 1+ H Sodium 136 Potassium 4.1 Chloride 93 L Carbon Dioxide 34.1 H Anion Gap 9 BUN 9 Creatinine 0.45 L Estimated GFR Greater than 89 Random Glucose 133 H Calcium 8.3 L Phosphorus 5.3 H D Magnesium 1.7 Albumin 1.4 L Microbiology 04/28/18 14:10 Fluid - Pleural fluid Gram Stain - Final 04/28/18 14:10 Fluid - Pleural fluid Body Fluid Culture - Preliminary No growth in 24 hours - Imaging Impressions Chest X-Ray 04/29/18 00:00 CONCLUSION: Interval worsening of diffuse pulmonary infiltrates bilaterally consistent with worsening pulmonary edema or pneumonia. Clinical correlation is recommended. - Procedures Exploratory laparotomy repair of perforated duodenal ulcer with Michel patch Assessment and Plan - Plan 67-year-old female with perforated duodenal ulcer: //Perforated duodenal ulcer s/p ex laparoscopy with Michel Patch Dr. Kelley 9. Continue postoperative care, pain control general surgery following. On pured diet as tolerated, tolerated ensure that with poor appetite. Short course of antibiotics for peritoneal contamination as per below, then H pylori treatment Patient did not tolerate p.o. Augmentin and p.o. Diflucan will restart IV Zofran and IV Diflucan until patient can tolerate p.o. Continue IV fluid hydration due to poor p.o. intake. Encourage physical therapy. =Hemoglobin stable. = Continue postoperative management as per surgical service. //COPD on 2.5-3 L home O2 //Fluid overload on 04/27 Ongoing tobacco abuse Tobacco cessation discussed. DuoNeb every 6 hours scheduled hold Albuterol prn due to Afib with RVR. ISq1 hour awake CTA 04/19 negative for PE. Encourage incentive spirometry use Hold prednisone Check portable chest x-ray today to rule out underlying pneumonia versus bronchitis due to patient's continued elevation in white blood cell check sputum cultures = 04/27. Repeat chest x-ray with worsening what appears to be edema. We'll discontinue IV fluids and diuresis.. = 04/28. Worsening respiratory status. Does not appear to be CHF as BNP is not elevated. Will repeat chest x-ray. Transfer to ICU. Notified pulmonology. =04/29. Status post right-sided thoracentesis. Appreciate ICU assistance. diuresis again today. Pulmonology following. Appreciate assistance. //Afib with RVR: Rate currently controlled. Chads 2 score of 2 she needs to be anticoagulated when cleared by general surgery. = 04/28 with what appears to be SVT with rate of 200. Will start on low-dose diltiazem. Recheck EKG. Consult cardiology. =04/29. Continue low-dose diltiazem. Appreciate cardiology assistance. //Alcohol abuse Thiamine 100 mg IV daily will change to p.o. Monitor for signs and symptoms of alcohol withdrawal. //Elevated lipase - No evidence of pancreatitis on CT, may be secondary to inflammation from duodenal perf. //BLAS Hypokalemia Monitor intake and output. Monitor electrolytes and replace as indicated. Aggressive electrolyte replacement Replete = Creatinine stable. Continue to monitor. //Sepsis secondary to perforated duodenal ulcer with abscess and intra- abdominal contamination. F/u blood culture negative to date. Previously on zosyn, diflucan, levaquin since April 20 for intraabdominal contamination. General surgery has changed to Augmentin, Diflucan on 04/24 however will restart IV Zosyn due to poor p.o. intake and not able to tolerate p.o. medication. = 04/28. Infectious disease consult ordered on 04/27. Follow-up recommendations. Appreciate assistance. 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 No active symptoms of C diff prior to this presentation, tested to determine colonization status on admission. Will continue vancomycin po 125 mg qid for C diff secondary prophylaxis given history of recurrence Added Lactinex //Chronic prednisone use Has been on prednisone 20 mg po bid, reportedly since 03/14, due to COPD. (Has hx of SLE, not on therapy). Ideally should be off steroids given duodenal ulcers. Discontinue IV steroids. //Leukocytosiscould be due to previous prednisone use, which is now on hold. Concern for underlying infection and will check portable chest x-ray and sputum cultures. Repeat CBC in the morning = Afebrile. White blood cell count 23.9. Continue to monitor. Continue antibiotics and consult infectious disease. = 04/28. Follow-up infectious disease recommendations. =04/29. Continue antibiotics as per infectious disease. Appreciate assistance. Leukocytosis improving at 16 today. Continue to monitor. PROPH: SCD for DVT prophylaxis. Protonix Discharge Planning: continue inpatient treatment.
[2018-04-30] MEDS: Acetaminophen-HYDROcodone 325/7.5 Liq 15 ML UDC NG/OG PRN ×5 (03:31→22:43)
[2018-04-30] MEDS: metroNIDAZOLE 500 MG Tablet PO SCH ×3 (05:50→21:25)
--- NOTE | 2018-04-30 08:13 | P.PNGS ---
Subjective Patient reports: feels better Interval history: DAILY PROGRESS NOTE FOR SURGICAL ATTENDING, DR. MITRA LOPEZ Sitting up in the chair still complaining of right upper quadrant pain worse when she moves tolerating some p.o. but this exacerbates her pain Physical Exam Vital signs: Vital Signs 04/29/18 09:00 04/29/18 12:00 04/29/18 14:00 Temperature 98.4 F Pulse Rate 80 78 76 Respiratory Rate 22 15 Blood Pressure 104/52 L Pulse Oximetry 98 04/29/18 16:00 04/29/18 19:00 04/29/18 20:00 Temperature 98.4 F 98.8 F Pulse Rate 88 78 Respiratory Rate 22 15 Blood Pressure 114/61 117/59 L Pulse Oximetry 94 L 98 97 04/30/18 00:00 04/30/18 04:00 04/30/18 07:52 Temperature Pulse Rate 75 75 79 Respiratory Rate 14 14 17 Blood Pressure 136/62 112/57 L Pulse Oximetry 98 100 Intake & Output 04/29/18 04/30/18 04/30/18 18:59 06:59 18:59 Intake Total 1480 / 1480 850 / 850 Output Total 1000 / 1000 510 / 510 Balance 480 / 480 340 / 340 Intake: IV 400 / 400 100 / 100 Ofirmev Inj 1,000 mg In 100 ml 100 / 100 @ 400 mls/hr IV.SIG ONCE ONE Rx #:[id number] Maxipime Inj 2,000 MG In NS Inj 100 / 100 100 / 100 100 ML @ 200 mls/hr IV.SIG Q12H [facility] Rx#:[id number] Diflucan 400 mg Premix Bag 200 200 / 200 ML @ 100 mls/hr IV.SIG Q24H [facility] Rx#:[id number] Oral 600 / 600 750 / 750 Oral Supplement 480 / 480 Output: Urine 1000 / 1000 Urine Amount (Catheter) 500 / 500 Female External 500 / 500 Wound Drainage # 1 Lower Anterior Medial Abdomen Other: # Voids 3 Date of Last Bowel Movement 04/26/18 04/29/18 # Bowel Movements 0 Narrative: Patient sitting up in chair Still has a productive cough Getting breathing treatment Regular rate Abdomen soft EARNESTINE intact - Urinary Catheter Management Indwelling Urethral Catheter Cath placed during this visit: yes Urethral indwelling: Yes Reason for continuing: Hourly intake/output Insertion date: 04/19/18 Female External Cath placed during this visit: yes Reason for continuing: Not indwelling catheter Insertion date: 04/29/18 Results - Labs 04/29/18 04:15 04/29/18 04:15 Laboratory Results - last 24 hr 04/29/18 18:17 Urine Color Straw Urine Clarity Clear Urine pH 5.0 Ur Specific [place] 1.005 Urine Protein Negative Urine Glucose (UA) Negative Urine Ketones Negative Urine Occult Blood Negative Urine Nitrate Negative Urine Bilirubin Negative Urine Urobilinogen Less than 2 Ur Leukocyte Esterase Negative Urine RBC Less than 1 Urine WBC 1 Ur Squamous Epith Cells <1 Urine Bacteria Rare H Micro UA Comment Culture not ind Ur Microscopic Review Not Reportable Urine Culture Comments Culture not ind - Imaging Imaging: ITS Impressions Abdomen/Pelvis CT 04/19/18 16:41 CONCLUSION: 1. Free fluid or free air throughout the abdomen. I don't see an obvious etiology for it. There is no evidence of peptic ulcer disease or definite colonic wall thickening or other than some slightly narrowed loops of transverse colon in the midline. I do not see a normal or abnormal appendix 2. Gallbladder is distended. No stone or wall thickening is identified. Chest CTA 04/19/18 16:41 CONCLUSION: 1. No evidence of deep venous thrombosis. 2. Ascites in the upper abdomen and multiple small collections of free air. 3. The esophagus is prominent with air and fluid. These findings were called to [facility] the emergency room at 1852 hours. Chest X-Ray 04/29/18 00:00 CONCLUSION: Interval worsening of diffuse pulmonary infiltrates bilaterally consistent with worsening pulmonary edema or pneumonia. Clinical correlation is recommended. Gallbladder Ultrasound 04/30/18 00:00 CONCLUSION: 1. Small right perinephric fluid collection. Echogenic fatty liver. US - abdomen: report reviewed, image reviewed Assessment and Plan - Assessment (1) Right upper quadrant pain Code(s): R10.11 - Right upper quadrant pain Status: Acute (2) Duodenal ulcer with perforation Code(s): K26.5 - Chronic or unspecified duodenal ulcer with perforation Status : Acute (3) Atrial fibrillation with RVR Code(s): I48.91 - Unspecified atrial fibrillation Status: Resolved Onset Date: ~04/20/18 (4) History of peptic ulcer disease Code(s): Z87.11 - Personal history of peptic ulcer disease Status: Chronic (5) Alcohol use Code(s): Z78.9 - Other specified health status Status: Chronic (6) Tobacco use Code(s): Z72.0 - Tobacco use Status: Chronic (7) Asthma exacerbation in COPD Code(s): J44.1 - Chronic obstructive pulmonary disease with (acute) exacerbation ; J45.901 - Unspecified asthma with (acute) exacerbation Status: Chronic (8) Current chronic use of systemic steroids Code(s): Z79.52 - manager terminal (current) use of systemic steroids Status: 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 - Plan 67yo female s/p duodenal perforation, stable -Moved to [facility]; s/p thoracentesis with 1.2L removed -Breathing easier now - -Pain control -Still with low appetite--- encourage small meals and Ensure shakes -Dr. Serrato following -Continue IV antibiotics -Continue Prednisone -WBC improved -Continue PT Tolerating p.o. Still has right upper quadrant pain Planning ultrasound today to evaluate right upper quadrant pain - Attending Attestation I attest that I had a [id number] encounter with the patient on the same day, and personally performed and documented my assessment and findings in the medical record. The following services were provided during this hospital visit: Chart data review, vital sign assessments/reviewing monitor data Review of consultation notes if present Medication orders/review and/or management Ordering and/or reviewing lab tests Ordering and/or interpreting/reviewing x-rays and/or diagnostic studies Care of the patient and discussion of the patient with the care team Documentation time To help prompt me to consider important information that might be impacting today's encounter and assessment, Information from prior notes written by myself or my colleagues may have been "brought forward/copy and pasted" into today's note.
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
[2018-04-30] MEDS: Lactobacillus Acidophilus/L. Spores Tablet NG/OG SCH ×3 (09:54→18:11)
[2018-04-30] MEDS: Senna/Docusate Sodium 8.6/50 MG Tablet PO SCH ×2 (09:54→20:57)
[2018-04-30] MEDS: Megestrol Acetate Liq 400 MG/10 ML UDC PO SCH ×2 (09:55→20:57)
[2018-04-30] MEDS: guaiFENesin 600 MG ER Tablet PO SCH ×2 (09:55→20:57)
[2018-04-30] MEDS: predniSONE 10 MG Tablet PO SCH ×2 (09:55→20:57)
[2018-04-30] MEDS: Enoxaparin Inj 40 MG/0.4 ML Syringe SQ SCH (09:55)
[2018-04-30] MEDS: dilTIAZem 30 MG Tablet PO SCH ×4 (09:55→20:57)
[2018-04-30] MEDS: Pantoprazole Inj 40 MG Vial IV.PUSH SCH ×2 (09:55→20:58)
--- NOTE | 2018-04-30 12:07 | P.PNID ---
Subjective Remarks: Patient is a 67-year-old female, brought into the hospital for evaluation of 2 day history of abdominal distention and abdominal pain. She apparently has been drinking alcohol most of the day because of the abdominal pain. She had some nausea and vomiting, but has had normal stool. She denies any fever or chills. She has known COPD and has had some complaints of shortness of breath but no cough or any chest pain. On evaluation, CT of the abdomen and pelvis showed free air with free fluid. She was taken to surgery emergently, and had laparoscopic surgery, repair of a perforated duodenal ulcer with Michel patch, with obvious finding of contamination, and abscess. Postoperatively she had some brief problem with paroxysmal atrial fibrillation. Since postop she her appetite has been poor. She had some diarrhea briefly, but her stools have been normal. She is still has poor p.o. intake although it has improved a little bit. Complains of abdominal pain. Patient stated that since last night her shortness of breath has gotten worse. She is currently on a nonrebreather mask, and she was on a BiPAP machine overnight. Patient still has the EARNESTINE drain in place, and output is serous. Since April 23 she has developed mild leukocytosis of 12,000, but since April 25 her white count has been greater than 20,000. Patient has been started on antibiotics. She is currently on Diflucan, Augmentin, and Zosyn. She has had some trouble swallowing pills. Patient is coughing up phlegm and brings up usually yellowish phlegm. She has no urinary complaints. Her last 2 chest x-ray has shown a large pleural effusion on the right and a small effusion on the left Infectious disease consultation has been requested to evaluate the patient with worsening leukocytosis. She is afebrile. Notes reviewed D/W RN Afebrile States breathing is better On nasal O2 C/O pain in RUQ - worse today Pleural fluid C/S negative WBC lower at 16K Appetite a little better Antibiotics: Cefepime Flagyl Diflucan Past Medical History: C. difficile colitis COPD (chronic obstructive pulmonary disease) Diabetes Lupus History of total left hip replacement Hx of tubal ligation Allergies/Adverse Reactions: Allergies No Known Allergies Allergy (Unverified 03/12/18 19:51) Objective Vital Signs 04/29/18 14:00 04/29/18 16:00 04/29/18 19:00 Temperature 98.4 F Pulse Rate 76 88 Respiratory Rate 15 22 Blood Pressure 114/61 Pulse Oximetry 94 L 98 04/29/18 20:00 04/30/18 00:00 04/30/18 04:00 Temperature 98.8 F Pulse Rate 78 75 75 Respiratory Rate 15 14 14 Blood Pressure 117/59 L 136/62 112/57 L Pulse Oximetry 97 98 100 04/30/18 07:52 04/30/18 08:00 04/30/18 09:00 Temperature 97.7 F Pulse Rate 79 81 81 Respiratory Rate 17 18 Blood Pressure 128/61 Pulse Oximetry 98 04/30/18 10:26 Temperature Pulse Rate Respiratory Rate 8 L Blood Pressure Pulse Oximetry Intake & Output 04/29/18 04/30/18 04/30/18 18:59 06:59 18:59 Intake Total 1480 / 1480 850 / 850 Output Total 1000 / 1000 510 / 510 Balance 480 / 480 340 / 340 Intake: IV 400 / 400 100 / 100 Ofirmev Inj 1,000 mg In 100 ml 100 / 100 @ 400 mls/hr IV.SIG ONCE ONE Rx #:[id number] Maxipime Inj 2,000 MG In NS Inj 100 / 100 100 / 100 100 ML @ 200 mls/hr IV.SIG Q12H [facility] Rx#:[id number] Diflucan 400 mg Premix Bag 200 200 / 200 ML @ 100 mls/hr IV.SIG Q24H [facility] Rx#:[id number] Oral 600 / 600 750 / 750 Oral Supplement 480 / 480 Output: Urine 1000 / 1000 Urine Amount (Catheter) 500 / 500 Female External 500 / 500 Wound Drainage # 1 Lower Anterior Medial Abdomen Other: # Voids 3 Date of Last Bowel Movement 04/26/18 04/29/18 04/29/18 # Bowel Movements 0 04/28/18 14:10 Fluid - Pleural fluid Gram Stain - Final 04/28/18 14:10 Fluid - Pleural fluid Body Fluid Culture - Preliminary No growth in 48 hours 04/28/18 14:25 Abscess - Chest Acid Fast Bacilli Smear - Pending 04/28/18 14:25 Abscess - Chest Mycobacterial Culture - Pending Lab - Hematology Results 04/29/18 04:15 WBC 16.0 H RBC 3.72 L Hgb 9.2 L Hct 30.1 L MCV 80.9 MCH 24.8 L MCHC 30.7 L RDW 20.0 H Plt Count 317 MPV 8.0 Prelim Diff (Auto) Slide review pending Neut % (Auto) 93.6 H Lymph % (Auto) 1.8 L [place] % (Auto) 4.6 Eos % (Auto) 0.0 Baso % (Auto) 0.0 Neut # (Auto) 15.0 H Lymph # (Auto) 0.3 L [place] # (Auto) 0.7 Eos # (Auto) 0.0 Baso # (Auto) 0.0 WBC Differential . Diff Scan Auto diff confirmed Differential Comment . Platelet Estimate Normal Platelet Morphology Normal Ovalocytes 1+ H Lab - Chemistry Results 04/29/18 04:15 Sodium 136 Potassium 4.1 Chloride 93 L Carbon Dioxide 34.1 H Anion Gap 9 BUN 9 Creatinine 0.45 L Estimated GFR Greater than 89 Random Glucose 133 H Calcium 8.3 L Phosphorus 5.3 H D Magnesium 1.7 Albumin 1.4 L Imaging: ITS Impressions Abdomen/Pelvis CT 04/19/18 16:41 CONCLUSION: 1. Free fluid or free air throughout the abdomen. I don't see an obvious etiology for it. There is no evidence of peptic ulcer disease or definite colonic wall thickening or other than some slightly narrowed loops of transverse colon in the midline. I do not see a normal or abnormal appendix 2. Gallbladder is distended. No stone or wall thickening is identified. Chest CTA 04/19/18 16:41 CONCLUSION: 1. No evidence of deep venous thrombosis. 2. Ascites in the upper abdomen and multiple small collections of free air. 3. The esophagus is prominent with air and fluid. These findings were called to [facility] the emergency room at 1852 hours. Chest X-Ray 04/29/18 00:00 CONCLUSION: Interval worsening of diffuse pulmonary infiltrates bilaterally consistent with worsening pulmonary edema or pneumonia. Clinical correlation is recommended. Physical Exam: GENERAL: awake and alert, not in distress, up in chair, on nasal O2 SKIN: Cool and dry. No generalized rash, no ecchymoses and no evidence of embolic lesions. HEAD: Atraumatic. Normocephalic. No temporal wasting, or tenderness. EYES: [place] conjunctiva. No petechia or hemorrhage. Pupils equal, round and reactive to light. Extraocular movements full and intact. No scleral icterus. No injection or drainage. EARS, NOSE AND THROAT: Nose without bleeding or purulent nasal discharge. No sinus tenderness. Mucous membranes pink and moist. No oral lesions noted.. NECK: Trachea midline. Supple and not tender, no meningeal signs CARDIOVASCULAR: Regular rate and rhythm. No rubs or gallops heard RESPIRATORY: Rales at the bases ABDOMEN: Distended abdomen, hypoactive bowel sound, mild tenderness R side. EARNESTINE drain midline with serous fluid. Incisions from her laparoscopy dry with sutures, no evidence of infection. No guarding or rebound. EXTREMITIES: No clubbing, cyanosis, or edema. No joint effusion, has good ROM. No calf tenderness. Well perfused and warm. NEUROLOGICAL: Grossly non-focal. PSYCHIATRIC: Normal affect, calm and cooperative. LINE: No evidence of infection Assessment and Plan - Plan Impression Worsening leukocytosis, etiology? - has a very large effusion on R, ?PNA, ?infected fluid, ?sympathetic effusion - S/P laparoscopy for perf DU with abscess, ?post op abscess - no diarrhea - voiding ok COPD Respiratory failure, worse likely due to large effusion, better post tap Likely with PNA S/P laparoscopy fro perf DU Recommendation Follow C/S Continue cefepime Continue Flagyl Continue Diflucan CT A/P Monitor progress D/W RN
[2018-04-30] MEDS ORDERED: Diatrizoate Meglum/Diatrizoate Sod Liq 9 ML UDC PO ONE (12:19)
--- NOTE | 2018-04-30 13:36 | US ---
EXAM DATE: 04/30/2018 12:52 PM EDT AGE/SEX: 67 years / Female INDICATIONS: Right upper quadrant tenderness. CLINICAL DATA: This is the patient's subsequent encounter. Patient reports that signs and symptoms h ave been present for 2 days and indicates a pain score of 4/10. MEDICAL/SURGICAL HISTORY: Chronic obstructive pulmonary disease. Diabetes. C. difficile coliti s. Lupus. Duodenal ulcer. Tubal ligation. Left hip replacement. Laparoscopic repair of perforated du odenal ulcer. Thoracentesis. COMPARISON: [facility] – [place], CT ABDOMEN & PELVIS W CONTRAST, 04/19/2018. . MEASUREMENTS: Liver:__ 19.1 cm. Common Bile Duct:__ 8mm. FINDINGS: Liver: Increased echotexture without focal lesion or ductal dilation. Portal Vein: Hepatopedal flow seen in portal vein. Common Duct: No intraluminal mass or stone visualized. Gallbladder: Demonstrates no wall thickening or pericholecystic fluid. No stones visualized. Pancreas: The visualized portions are within normal limits Right Kidney: Normal echotexture and cortical thickness. No mass or hydronephrosis except for some p ossible fluid in the perinephric space. Other: None. CONCLUSION: 1. Small right perinephric fluid collection. Echogenic fatty liver. Electronically signed by: Reece Regan MD 04/30/2018 1:35 PM EDT
--- NOTE | 2018-04-30 15:55 | P.PNIM ---
Subjective Interval history: Patient seen today around noon. Says she is feeling a little better today. Denies any shortness of breath. Reports right upper quadrant pain about the same as yesterday. Physical Exam Vital signs: Vital Signs 04/29/18 16:00 04/29/18 19:00 04/29/18 20:00 Temperature 98.4 F 98.8 F Pulse Rate 88 78 Respiratory Rate 22 15 Blood Pressure 114/61 117/59 L Pulse Oximetry 94 L 98 97 04/30/18 00:00 04/30/18 04:00 04/30/18 07:52 Temperature Pulse Rate 75 75 79 Respiratory Rate 14 14 17 Blood Pressure 136/62 112/57 L Pulse Oximetry 98 100 04/30/18 08:00 04/30/18 09:00 04/30/18 10:26 Temperature 97.7 F Pulse Rate 81 81 Respiratory Rate 18 8 L Blood Pressure 128/61 Pulse Oximetry 98 04/30/18 12:00 Temperature 97.8 F Pulse Rate 78 Respiratory Rate 15 Blood Pressure 122/60 Pulse Oximetry 95 Intake & Output 04/29/18 04/30/18 04/30/18 18:59 06:59 18:59 Intake Total 1480 / 1480 850 / 850 Output Total 1000 / 1000 510 / 510 Balance 480 / 480 340 / 340 Intake: IV 400 / 400 100 / 100 Ofirmev Inj 1,000 mg In 100 ml 100 / 100 @ 400 mls/hr IV.SIG ONCE ONE Rx #:[id number] Maxipime Inj 2,000 MG In NS Inj 100 / 100 100 / 100 100 ML @ 200 mls/hr IV.SIG Q12H [facility] Rx#:[id number] Diflucan 400 mg Premix Bag 200 200 / 200 ML @ 100 mls/hr IV.SIG Q24H [facility] Rx#:[id number] Oral 600 / 600 750 / 750 Oral Supplement 480 / 480 Output: Urine 1000 / 1000 Urine Amount (Catheter) 500 / 500 Female External 500 / 500 Wound Drainage # 1 Lower Anterior Medial Abdomen Other: # Voids 3 Date of Last Bowel Movement 04/26/18 04/29/18 04/29/18 # Bowel Movements 0 Narrative: GENERAL: Sitting up in chair. Appears comfortable. SKIN: Warm and dry. HEAD: Normocephalic. EYES: No scleral icterus. No injection or drainage. NECK: Supple, trachea midline. No JVD. CARDIOVASCULAR: Regular rate and rhythm without murmurs, gallops, or rubs. RESPIRATORY: Decreased breath sounds on the right as before. No accessory muscle use. GASTROINTESTINAL: Abdomen soft, non-tender, EARNESTINE drain in. MUSCULOSKELETAL: No cyanosis, or edema. BACK: Nontender without obvious deformity. No CVA tenderness. - Urinary Catheter Management Indwelling Urethral Catheter Cath placed during this visit: yes Urethral indwelling: Yes Reason for continuing: Hourly intake/output Insertion date: 04/19/18 Female External Cath placed during this visit: yes Reason for continuing: Not indwelling catheter Insertion date: 04/29/18 Results - Labs CBC & Chem 7: 04/29/18 04:15 04/29/18 04:15 Laboratory Results - last 24 hr 04/29/18 18:17 Urine Color Straw Urine Clarity Clear Urine pH 5.0 Ur Specific Perry 1.005 Urine Protein Negative Urine Glucose (UA) Negative Urine Ketones Negative Urine Occult Blood Negative Urine Nitrate Negative Urine Bilirubin Negative Urine Urobilinogen Less than 2 Ur Leukocyte Esterase Negative Urine RBC Less than 1 Urine WBC 1 Ur Squamous Epith Cells <1 Urine Bacteria Rare H Micro UA Comment Culture not ind Ur Microscopic Review Not Reportable Urine Culture Comments Culture not ind Microbiology 04/28/18 14:25 Abscess - Chest Acid Fast Bacilli Smear - Final No acid fast bacilli seen 04/28/18 14:10 Fluid - Pleural fluid Gram Stain - Final 04/28/18 14:10 Fluid - Pleural fluid Body Fluid Culture - Preliminary No growth in 48 hours - Imaging Impressions Gallbladder Ultrasound 04/30/18 00:00 CONCLUSION: 1. Small right perinephric fluid collection. Echogenic fatty liver. - Procedures Exploratory laparotomy repair of perforated duodenal ulcer with Michel patch Assessment and Plan - Plan 67-year-old female with perforated duodenal ulcer: //Perforated duodenal ulcer s/p ex laparoscopy with Michel Patch Dr. Kelley 04/19. Continue postoperative care, pain control general surgery following. On pured diet as tolerated, tolerated ensure that with poor appetite. Short course of antibiotics for peritoneal contamination as per below, then H pylori treatment Patient did not tolerate p.o. Augmentin and p.o. Diflucan will restart IV Zofran and IV Diflucan until patient can tolerate p.o. Continue IV fluid hydration due to poor p.o. intake. Encourage physical therapy. =Hemoglobin stable. = Continue postoperative management as per surgical service. //COPD on 2.5-3 L home O2 //Fluid overload on 04/27 Ongoing tobacco abuse Tobacco cessation discussed. DuoNeb every 6 hours scheduled hold Albuterol prn due to Afib with RVR. ISq1 hour awake CTA 04/19 negative for PE. Encourage incentive spirometry use Hold prednisone Check portable chest x-ray today to rule out underlying pneumonia versus bronchitis due to patient's continued elevation in white blood cell check sputum cultures = 04/27. Repeat chest x-ray with worsening what appears to be edema. We'll discontinue IV fluids and diuresis.. = 04/28. Worsening respiratory status. Does not appear to be CHF as BNP is not elevated. Will repeat chest x-ray. Transfer to ICU. Notified pulmonology. =04/29. Status post right-sided thoracentesis. Appreciate ICU assistance. diuresis again today. Pulmonology following. Appreciate assistance. = 04/30. Respiratory status stable. Continue fluid restrictions. Recheck labs tomorrow. //Afib with RVR: Rate currently controlled. Chads 2 score of 2 she needs to be anticoagulated when cleared by general surgery. = 04/28 with what appears to be SVT with rate of 200. Will start on low-dose diltiazem. Recheck EKG. Consult cardiology. =04/29. Continue low-dose diltiazem. Appreciate cardiology assistance. //Alcohol abuse Thiamine 100 mg IV daily will change to p.o. Monitor for signs and symptoms of alcohol withdrawal. //Elevated lipase - No evidence of pancreatitis on CT, may be secondary to inflammation from duodenal perf. //BLAS Hypokalemia Monitor intake and output. Monitor electrolytes and replace as indicated. Aggressive electrolyte replacement Replete = Creatinine stable. Continue to monitor. //Sepsis secondary to perforated duodenal ulcer with abscess and intra- abdominal contamination. F/u blood culture negative to date. Previously on zosyn, diflucan, levaquin since April 20 for intraabdominal contamination. General surgery has changed to Augmentin, Diflucan on 04/24 however will restart IV Zosyn due to poor p.o. intake and not able to tolerate p.o. medication. = 04/28. Infectious disease consult ordered on 04/27. Follow-up recommendations. Appreciate assistance. = 04/30. Infectious disease following. Continue antibiotics as per infectious disease. Right upper quadrant ultrasound with perinephric fluid collection. Likely ascites. No CVA tenderness. 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 No active symptoms of C diff prior to this presentation, tested to determine colonization status on admission. Will continue vancomycin po 125 mg qid for C diff secondary prophylaxis given history of recurrence Added Lactinex = ID following. Appreciate assistance. //Chronic prednisone use Has been on prednisone 20 mg po bid, reportedly since 03/14, due to COPD. (Has hx of SLE, not on therapy). Ideally should be off steroids given duodenal ulcers. Discontinue IV steroids. //Leukocytosiscould be due to previous prednisone use, which is now on hold. Concern for underlying infection and will check portable chest x-ray and sputum cultures. Repeat CBC in the morning = Afebrile. White blood cell count 23.9. Continue to monitor. Continue antibiotics and consult infectious disease. = 04/28. Follow-up infectious disease recommendations. =04/29. Continue antibiotics as per infectious disease. Appreciate assistance. Leukocytosis improving at 16 today. Continue to monitor. = 04/30. Afebrile. Follow-up labs tomorrow. ID following. Appreciate assistance. PROPH: SCD for DVT prophylaxis. Protonix Discharge Planning: continue inpatient treatment.
--- NOTE | 2018-04-30 20:51 | CT ---
EXAM DATE: 04/30/2018 8:26 PM EDT AGE/SEX: 67 years / Female INDICATIONS: Right sided abdominal pain. CLINICAL DATA: This is the patient's initial encounter. Patient reports that signs and symptoms have been present for 1 day and indicates a pain score of 4/10. MEDICAL/SURGICAL HISTORY: Chronic obstructive pulmonary disease. Lupus. Diabetes. Cdiff. Tu bal ligation. Hip replacement. ORAL CONTRAST: Prescribed oral contrast ingested. RADIATION DOSE: 12.45 CTDI (mGy) COMPARISON: [facility] – [place], [place] ABDOMEN & PELVIS W CONTRAST, 04/19/2018. . TECHNIQUE: Multiple contiguous axial images were obtained through the abdomen and pelvis following b olus infusion of 70 ml Omnipaque 350 (iohexol) nonionic water-soluble contrast as a single exam dos e. Prescribed oral contrast ingested. Using automated exposure control and adjustment of the mA and/ or kV according to patient size, radiation dose was kept as low as reasonably achievable to obtain op timal diagnostic quality images. DICOM format image data is available electronically for review and comparison. FINDINGS: Comparison is April 19. There is hazy airspace disease that has developed at both lung bases with small bilateral pleural effusions, right greater than left. Within the upper abdomen previous free air is no longer visualized and free fluid has resolved. There is a new loculated fluid collection in Castellanos's pouch on the right side measuring up to 4.3 x 1.7 cm. Mild periportal edema in the liver. There is placement of a drain along the peripheral aspec t of the liver with the tip anterior to the pancreas. There is some mural thickening of the colon, especially in the left colon. CONCLUSION: 1. Loculated fluid collection in Castellanos's pouch measuring up to 4.3 x 1.7 cm. Etiology unclear but cannot exclude small abscess. Trace loculated fluid also noted posterior to the right lobe liver. 2. Placement of a drain along the peripheral aspect of the right side of the liver with tip extendin g anterior to the pancreas. 3. Development of small bilateral pleural effusions with basilar lung disease suspicious for pneumon ic infiltrate. 4. Previous free air and most free fluid has resolved. Bladder is distended. Previous left hip repla cement. 5. Probable mild colitis. Electronically signed by: Tiago Fletcher MD 04/30/2018 8:49 PM EDT
[2018-05-01] MEDS: Acetaminophen-HYDROcodone 325/7.5 Liq 15 ML UDC NG/OG PRN ×6 (03:08→23:47)
[2018-05-01] MEDS: metroNIDAZOLE 500 MG Tablet PO SCH ×3 (05:08→22:46)
[2018-05-01 05:09] LABS: Baso % (Auto) 0.3 % (0.0-2.0); Hematocrit 28.7 % (35.0-46.0); Hemoglobin 8.9 gm/dL (11.6-15.3); Lymph # (Auto) 0.5 th/mm3 (1.0-4.8); Lymph % (Auto) 5.8 % (9.0-44.0); Mean Corpuscular HGB Conc 31.1 % (32.0-36.0); Mean Corpuscular Hemoglobin 24.7 pg (27.0-34.0); Mean Corpuscular Volume 79.3 fL (80.0-100.0); Mean Platelet Volume 7.9 fL (7.0-11.0); Mono # (Auto) 0.6 th/mm3 (0.0-0.9); Mono % (Auto) 7.3 % (0.0-8.0); Neut # (Auto) 6.8 th/mm3 (1.8-7.7); Neut % (Auto) 86.6 % (16.0-70.0); Platelet Count 430 th/mm3 (150-450); Red Blood Count 3.61 mil/mm3 (4.00-5.30); Red Cell Distribution Width 19.8 % (11.6-17.2); White Blood Count 7.9 th/mm3 (4.0-11.0)
[2018-05-01 05:19] LABS: Albumin 1.5 g/dL (3.4-5.0); Calcium 8.4 mg/dL (8.5-10.1); Carbon Dioxide 37.3 meq/L (21.0-32.0); Magnesium 1.7 mg/dL (1.5-2.5)
[2018-05-01 05:20] LABS: Phosphorus 2.8 mg/dL (2.5-4.9)
[2018-05-01 07:01] LABS: Lymphocytes 4 % (9-44); Metamyelocytes 1 % (0-1); Monocytes 4 % (0-8); Myelocytes 1 % (0-0); Platelet Estimate Normal (Normal); Platelet Morphology Normal (Normal); Target Cells 1+
[2018-05-01] MEDS: Megestrol Acetate Liq 400 MG/10 ML UDC PO SCH ×2 (08:24→20:32)
[2018-05-01] MEDS: Enoxaparin Inj 40 MG/0.4 ML Syringe SQ SCH (08:25)
[2018-05-01] MEDS: guaiFENesin 600 MG ER Tablet PO SCH ×2 (08:25→20:30)
[2018-05-01] MEDS: Lactobacillus Acidophilus/L. Spores Tablet NG/OG SCH ×3 (08:26→18:40)
[2018-05-01] MEDS: Senna/Docusate Sodium 8.6/50 MG Tablet PO SCH ×2 (08:26→20:33)
[2018-05-01] MEDS: predniSONE 10 MG Tablet PO SCH ×2 (08:26→20:32)
[2018-05-01] MEDS: dilTIAZem 30 MG Tablet PO SCH ×4 (08:26→20:30)
--- NOTE | 2018-05-01 09:21 | P.PNID ---
Subjective Remarks: Patient is a 67-year-old female, brought into the hospital for evaluation of 2 day history of abdominal distention and abdominal pain. She apparently has been drinking alcohol most of the day because of the abdominal pain. She had some nausea and vomiting, but has had normal stool. She denies any fever or chills. She has known COPD and has had some complaints of shortness of breath but no cough or any chest pain. On evaluation, CT of the abdomen and pelvis showed free air with free fluid. She was taken to surgery emergently, and had laparoscopic surgery, repair of a perforated duodenal ulcer with Michel patch, with obvious finding of contamination, and abscess. Postoperatively she had some brief problem with paroxysmal atrial fibrillation. Since postop she her appetite has been poor. She had some diarrhea briefly, but her stools have been normal. She is still has poor p.o. intake although it has improved a little bit. Complains of abdominal pain. Patient stated that since last night her shortness of breath has gotten worse. She is currently on a nonrebreather mask, and she was on a BiPAP machine overnight. Patient still has the EARNESTINE drain in place, and output is serous. Since April 23 she has developed mild leukocytosis of 12,000, but since April 25 her white count has been greater than 20,000. Patient has been started on antibiotics. She is currently on Diflucan, Augmentin, and Zosyn. She has had some trouble swallowing pills. Patient is coughing up phlegm and brings up usually yellowish phlegm. She has no urinary complaints. Her last 2 chest x-ray has shown a large pleural effusion on the right and a small effusion on the left Infectious disease consultation has been requested to evaluate the patient with worsening leukocytosis. She is afebrile. Notes reviewed Afebrile States breathing is better On nasal O2 C/O pain in RUQ - same, a little better with pain meds Eating a little better CT with small fluid collection in Castellanos's pouch and in posterior aspect R lobe liver (US with possible perinephric fluid R) - also with possible mild thickening of bowel She has not had BM last few days Pleural fluid C/S negative WBC lower at 16K Working with PT this morning Antibiotics: Cefepime Flagyl Diflucan Past Medical History: C. difficile colitis COPD (chronic obstructive pulmonary disease) Diabetes Lupus History of total left hip replacement Hx of tubal ligation Allergies/Adverse Reactions: Allergies No Known Allergies Allergy (Unverified 03/12/18 19:51) Objective Vital Signs 04/30/18 10:26 04/30/18 12:00 04/30/18 16:00 Temperature 97.8 F 97.8 F Pulse Rate 78 93 H Respiratory Rate 8 L 15 18 Blood Pressure 122/60 140/88 Pulse Oximetry 95 97 04/30/18 16:07 04/30/18 19:00 04/30/18 19:45 Temperature Pulse Rate 85 92 H Respiratory Rate 15 17 Blood Pressure Pulse Oximetry 100 96 04/30/18 20:00 05/01/18 00:00 05/01/18 04:00 Temperature 98.0 F 97.9 F Pulse Rate 86 84 82 Respiratory Rate 14 23 20 Blood Pressure 148/67 H 131/58 L 125/67 Pulse Oximetry 100 98 99 Intake & Output 04/30/18 05/01/18 05/01/18 18:59 06:59 18:59 Intake Total 1020 / 1020 580 / 580 Output Total 1100 / 1100 1315 / 1315 Balance -80 / -80 -735 / -735 Weight 59.4 kg Intake: IV 300 / 300 100 / 100 Maxipime Inj 2,000 MG In NS Inj 100 / 100 100 / 100 100 ML @ 200 mls/hr IV.SIG Q12H [facility] Rx#:[id number] Diflucan 400 mg Premix Bag 200 200 / 200 ML @ 100 mls/hr IV.SIG Q24H [facility] Rx#:[id number] Oral 720 / 720 480 / 480 Output: Urine 1100 / 1100 Urine Amount (Catheter) 1300 / 1300 Female External 1300 / 1300 Wound Drainage 0 / 0 15 / 15 # 1 Lower Anterior Medial 0 / 0 15 / 15 Abdomen Other: # Voids 2 Date of Last Bowel Movement 04/29/18 04/29/18 # Bowel Movements 0 0 04/28/18 14:10 Fluid - Pleural fluid Gram Stain - Final 04/28/18 14:10 Fluid - Pleural fluid Body Fluid Culture - Final No growth in 72 hours (aerobically and anaerobically ) 04/28/18 14:25 Abscess - Chest Acid Fast Bacilli Smear - Final No acid fast bacilli seen 04/28/18 14:25 Abscess - Chest Mycobacterial Culture - Pending Lab - Hematology Results 05/01/18 02:00 WBC 7.9 RBC 3.61 L Hgb 8.9 L Hct 28.7 L MCV 79.3 L MCH 24.7 L MCHC 31.1 L RDW 19.8 H Plt Count 430 D MPV 7.9 Prelim Diff (Auto) Slide review pending Neut % (Auto) 86.6 H Lymph % (Auto) 5.8 L [place] % (Auto) 7.3 Eos % (Auto) 0.0 Baso % (Auto) 0.3 Neut # (Auto) 6.8 Lymph # (Auto) 0.5 L [place] # (Auto) 0.6 Eos # (Auto) 0.0 Baso # (Auto) 0.0 WBC Differential Manual diff final Seg Neuts % (Manual) 85 H Band Neuts % (Manual) 5 Lymphocytes % (Manual) 4 L Monocytes % (Manual) 4 Metamyelocytes % (Man) 1 Myelocytes % (Man) 1 H Abs Neuts (Manual) 7.3 Differential Comment . Platelet Estimate Normal Platelet Morphology Normal Target Cells 1+ H Lab - Chemistry Results 05/01/18 03:00 Sodium 137 Potassium 4.0 Chloride 93 L Carbon Dioxide 37.3 H Anion Gap 7 BUN 14 Creatinine 0.80 Estimated GFR 72 L Random Glucose 142 H Calcium 8.4 L Phosphorus 2.8 D Magnesium 1.7 Albumin 1.5 L Imaging: ITS Impressions Chest CTA 04/19/18 16:41 CONCLUSION: 1. No evidence of deep venous thrombosis. 2. Ascites in the upper abdomen and multiple small collections of free air. 3. The esophagus is prominent with air and fluid. These findings were called to [facility] the emergency room at 1852 hours. Chest X-Ray 04/29/18 00:00 CONCLUSION: Interval worsening of diffuse pulmonary infiltrates bilaterally consistent with worsening pulmonary edema or pneumonia. Clinical correlation is recommended. Abdomen/Pelvis CT 04/30/18 00:00 CONCLUSION: 1. Loculated fluid collection in Castellanos's pouch measuring up to 4.3 x 1.7 cm. Etiology unclear but cannot exclude small abscess. Trace loculated fluid also noted posterior to the right lobe liver. 2. Placement of a drain along the peripheral aspect of the right side of the liver with tip extending anterior to the pancreas. 3. Development of small bilateral pleural effusions with basilar lung disease suspicious for pneumonic infiltrate. 4. Previous free air and most free fluid has resolved. Bladder is distended. Previous left hip replacement. 5. Probable mild colitis. Gallbladder Ultrasound 04/30/18 00:00 CONCLUSION: 1. Small right perinephric fluid collection. Echogenic fatty liver. Physical Exam: GENERAL: awake and alert, not in distress, up in chair, on nasal O2 SKIN: Cool and dry. No generalized rash, no ecchymoses and no evidence of embolic lesions. HEAD: Atraumatic. Normocephalic. No temporal wasting, or tenderness. EYES: [place] conjunctiva. No petechia or hemorrhage. Pupils equal, round and reactive to light. Extraocular movements full and intact. No scleral icterus. No injection or drainage. EARS, NOSE AND THROAT: Nose without bleeding or purulent nasal discharge. No sinus tenderness. Mucous membranes pink and moist. No oral lesions noted.. NECK: Trachea midline. Supple and not tender, no meningeal signs CARDIOVASCULAR: Regular rate and rhythm. No rubs or gallops heard RESPIRATORY: Rales at the bases ABDOMEN: Mild distended abdomen, hypoactive bowel sound, mild tenderness R side. EARNESTINE drain midline with serous fluid. Incisions from her laparoscopy dry with sutures, no evidence of infection. No guarding or rebound. EXTREMITIES: No clubbing, cyanosis, or edema. No joint effusion, has good ROM. No calf tenderness. Well perfused and warm. NEUROLOGICAL: Grossly non-focal. PSYCHIATRIC: Normal affect, calm and cooperative. LINE: No evidence of infection Assessment and Plan - Plan Impression Worsening leukocytosis, etiology? - has a very large effusion on R, ?PNA, ?infected fluid, ?sympathetic effusion - S/P laparoscopy for perf DU with abscess, ?post op abscess - no diarrhea - voiding ok COPD Respiratory failure, worse likely due to large effusion, better post tap Likely with PNA S/P laparoscopy fro perf DU Recommendation Follow C/S Continue cefepime Continue Flagyl Continue Diflucan Repeat CBC Monitor progress
--- NOTE | 2018-05-01 10:45 | P.PNIM ---
Subjective Interval history: Ports of right upper quadrant tenderness is improving today. Or shortness of breath is improving. Denies any nausea or vomiting. Physical Exam Vital signs: Vital Signs 04/30/18 12:00 04/30/18 16:00 04/30/18 16:07 Temperature 97.8 F 97.8 F Pulse Rate 78 93 H 85 Respiratory Rate 15 18 15 Blood Pressure 122/60 140/88 Pulse Oximetry 95 97 04/30/18 19:00 04/30/18 19:45 04/30/18 20:00 Temperature 98.0 F Pulse Rate 92 H 86 Respiratory Rate 17 14 Blood Pressure 148/67 H Pulse Oximetry 100 96 100 05/01/18 00:00 05/01/18 04:00 05/01/18 08:00 Temperature 97.9 F Pulse Rate 84 82 Respiratory Rate 23 20 Blood Pressure 131/58 L 125/67 Pulse Oximetry 98 99 100 05/01/18 09:00 05/01/18 09:43 05/01/18 09:45 Temperature Pulse Rate 104 H 91 H Respiratory Rate 15 Blood Pressure Pulse Oximetry 93 L Intake & Output 04/30/18 05/01/18 05/01/18 18:59 06:59 18:59 Intake Total 1020 / 1020 580 / 580 Output Total 1100 / 1100 1315 / 1315 Balance -80 / -80 -735 / -735 Weight 59.4 kg Intake: IV 300 / 300 100 / 100 Maxipime Inj 2,000 MG In NS Inj 100 / 100 100 / 100 100 ML @ 200 mls/hr IV.SIG Q12H [facility] Rx#:[id number] Diflucan 400 mg Premix Bag 200 200 / 200 ML @ 100 mls/hr IV.SIG Q24H [facility] Rx#:[id number] Oral 720 / 720 480 / 480 Output: Urine 1100 / 1100 Urine Amount (Catheter) 1300 / 1300 Female External 1300 / 1300 Wound Drainage 0 / 0 # 1 Lower Anterior Medial 0 / 0 Abdomen Other: # Voids 2 Date of Last Bowel Movement 04/29/18 04/29/18 04/29/18 # Bowel Movements 0 0 Narrative: GENERAL: Patient sitting in chair bedside. Appears comfortable. SKIN: Warm and dry. HEAD: Normocephalic. EYES: No scleral icterus. No injection or drainage. NECK: Supple, trachea midline. No JVD. CARDIOVASCULAR: Regular rate and rhythm without murmurs, gallops, or rubs. RESPIRATORY: Breath sounds improving on the right.. No accessory muscle use. GASTROINTESTINAL: Abdomen soft, non-tender, nondistended. MUSCULOSKELETAL: No cyanosis, or edema. BACK: Nontender without obvious deformity. No CVA tenderness. - Urinary Catheter Management Indwelling Urethral Catheter Cath placed during this visit: yes Urethral indwelling: Yes Reason for continuing: Hourly intake/output Insertion date: 04/19/18 Female External Cath placed during this visit: yes Reason for continuing: Not indwelling catheter Insertion date: 04/29/18 Results - Labs CBC & Chem 7: 05/01/18 02:00 05/01/18 03:00 Laboratory Results - last 24 hr 05/01/18 05/01/18 02:00 03:00 WBC 7.9 RBC 3.61 L Hgb 8.9 L Hct 28.7 L MCV 79.3 L MCH 24.7 L MCHC 31.1 L RDW 19.8 H Plt Count 430 D MPV 7.9 Prelim Diff (Auto) Slide review pending Neut % (Auto) 86.6 H Lymph % (Auto) 5.8 L [place] % (Auto) 7.3 Eos % (Auto) 0.0 Baso % (Auto) 0.3 Neut # (Auto) 6.8 Lymph # (Auto) 0.5 L [place] # (Auto) 0.6 Eos # (Auto) 0.0 Baso # (Auto) 0.0 WBC Differential Manual diff final Seg Neuts % (Manual) 85 H Band Neuts % (Manual) 5 Lymphocytes % (Manual) 4 L Monocytes % (Manual) 4 Metamyelocytes % (Man) 1 Myelocytes % (Man) 1 H Abs Neuts (Manual) 7.3 Differential Comment . Platelet Estimate Normal Platelet Morphology Normal Target Cells 1+ H Sodium 137 Potassium 4.0 Chloride 93 L Carbon Dioxide 37.3 H Anion Gap 7 BUN 14 Creatinine 0.80 Estimated GFR 72 L Random Glucose 142 H Calcium 8.4 L Phosphorus 2.8 D Magnesium 1.7 Albumin 1.5 L Microbiology 04/28/18 14:10 Fluid - Pleural fluid Gram Stain - Final 04/28/18 14:10 Fluid - Pleural fluid Body Fluid Culture - Final No growth in 72 hours (aerobically and anaerobically ) 04/28/18 14:25 Abscess - Chest Acid Fast Bacilli Smear - Final No acid fast bacilli seen - Imaging Impressions Abdomen/Pelvis CT 04/30/18 00:00 CONCLUSION: 1. Loculated fluid collection in Castellanos's pouch measuring up to 4.3 x 1.7 cm. Etiology unclear but cannot exclude small abscess. Trace loculated fluid also noted posterior to the right lobe liver. 2. Placement of a drain along the peripheral aspect of the right side of the liver with tip extending anterior to the pancreas. 3. Development of small bilateral pleural effusions with basilar lung disease suspicious for pneumonic infiltrate. 4. Previous free air and most free fluid has resolved. Bladder is distended. Previous left hip replacement. 5. Probable mild colitis. Gallbladder Ultrasound 04/30/18 00:00 CONCLUSION: 1. Small right perinephric fluid collection. Echogenic fatty liver. - Procedures Exploratory laparotomy repair of perforated duodenal ulcer with Michel patch Assessment and Plan - Plan 67-year-old female with perforated duodenal ulcer: //Perforated duodenal ulcer s/p ex laparoscopy with Michel Patch Dr. Kelley 04/19. Continue postoperative care, pain control general surgery following. On pured diet as tolerated, tolerated ensure that with poor appetite. Short course of antibiotics for peritoneal contamination as per below, then H pylori treatment Patient did not tolerate p.o. Augmentin and p.o. Diflucan will restart IV Zofran and IV Diflucan until patient can tolerate p.o. Continue IV fluid hydration due to poor p.o. intake. Encourage physical therapy. =Hemoglobin stable. = Continue postoperative management as per surgical service. //COPD on 2.5-3 L home O2 //Fluid overload on 04/27 //Right sided pleural effusion. Ongoing tobacco abuse = 04/27. Repeat chest x-ray with worsening what appears to be edema. We'll discontinue IV fluids and diuresis.. = 04/28. Worsening respiratory status. Does not appear to be CHF as BNP is not elevated. Will repeat chest x-ray. Transfer to ICU. Notified pulmonology. =04/29. Status post right-sided thoracentesis. Appreciate ICU assistance. diuresis again today. Pulmonology following. Appreciate assistance. = 04/30. Respiratory status stable. Continue fluid restrictions. Recheck labs tomorrow. =-05/01. Respiratory status improved on 2 L nasal cannula. Pleural effusion culture is negative at this time. Repeat chest x-ray tomorrow. cont to monitor //Afib with RVR: Rate currently controlled. Chads 2 score of 2 she needs to be anticoagulated when cleared by general surgery. = 04/28 with what appears to be SVT with rate of 200. Will start on low-dose diltiazem. Recheck EKG. Consult cardiology. =04/29. Continue low-dose diltiazem. Appreciate cardiology assistance. = 05/01. Cardiology following. Continue diltiazem. Heart rate controlled. Continue to monitor. //Alcohol abuse Thiamine 100 mg IV daily will change to p.o. Monitor for signs and symptoms of alcohol withdrawal. //Elevated lipase - No evidence of pancreatitis on CT, may be secondary to inflammation from duodenal perf. //BLAS Hypokalemia Monitor intake and output. Monitor electrolytes and replace as indicated. Aggressive electrolyte replacement Replete = Creatinine stable. Continue to monitor. //Sepsis secondary to perforated duodenal ulcer with abscess and intra- abdominal contamination. F/u blood culture negative to date. Previously on zosyn, diflucan, levaquin since April 20 for intraabdominal contamination. General surgery has changed to Augmentin, Diflucan on 04/24 however will restart IV Zosyn due to poor p.o. intake and not able to tolerate p.o. medication. = 04/28. Infectious disease consult ordered on 04/27. Follow-up recommendations. Appreciate assistance. = 04/30. Infectious disease following. Continue antibiotics as per infectious disease. Right upper quadrant ultrasound with perinephric fluid collection. Likely ascites. No CVA tenderness. = 05/01. Continue antibiotics as per infectious disease. Appreciate assistance. 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 No active symptoms of C diff prior to this presentation, tested to determine colonization status on admission. Will continue vancomycin po 125 mg qid for C diff secondary prophylaxis given history of recurrence Added Lactinex = ID following. Appreciate assistance. //Chronic prednisone use Has been on prednisone 20 mg po bid, reportedly since 03/14, due to COPD. (Has hx of SLE, not on therapy). Ideally should be off steroids given duodenal ulcers. Discontinue IV steroids. //Leukocytosiscould be due to previous prednisone use, which is now on hold. Concern for underlying infection and will check portable chest x-ray and sputum cultures. Repeat CBC in the morning = Afebrile. White blood cell count 23.9. Continue to monitor. Continue antibiotics and consult infectious disease. = 04/28. Follow-up infectious disease recommendations. =04/29. Continue antibiotics as per infectious disease. Appreciate assistance. Leukocytosis improving at 16 today. Continue to monitor. = 04/30. Afebrile. Follow-up labs tomorrow. ID following. Appreciate assistance. = 05/01. Leukocytosis resolved 7.9. Continue antibiotics as per infectious disease. Appreciate assistance. Continue to monitor. PROPH: SCD for DVT prophylaxis. Protonix Discharge Planning: continue inpatient treatment.
--- NOTE | 2018-05-01 11:30 | P.PNGS ---
Subjective Interval history: DAILY PROGRESS NOTE FOR SURGICAL ATTENDING, DR. MITRA LOPEZ Just worked with PT Doing better with pain Up to the chair Physical Exam Vital signs: Vital Signs 04/30/18 12:00 04/30/18 16:00 04/30/18 16:07 Temperature 97.8 F 97.8 F Pulse Rate 78 93 H 85 Respiratory Rate 15 18 15 Blood Pressure 122/60 140/88 Pulse Oximetry 95 97 04/30/18 19:00 04/30/18 19:45 04/30/18 20:00 Temperature 98.0 F Pulse Rate 92 H 86 Respiratory Rate 17 14 Blood Pressure 148/67 H Pulse Oximetry 100 96 100 05/01/18 00:00 05/01/18 04:00 05/01/18 08:00 Temperature 97.9 F Pulse Rate 84 82 Respiratory Rate 23 20 Blood Pressure 131/58 L 125/67 Pulse Oximetry 98 99 100 05/01/18 09:00 05/01/18 09:43 05/01/18 09:45 Temperature Pulse Rate 104 H 91 H Respiratory Rate 15 Blood Pressure Pulse Oximetry 93 L Intake & Output 04/30/18 05/01/18 05/01/18 18:59 06:59 18:59 Intake Total 1020 / 1020 580 / 580 Output Total 1100 / 1100 1315 / 1315 Balance -80 / -80 -735 / -735 Weight 59.4 kg Intake: IV 300 / 300 100 / 100 Maxipime Inj 2,000 MG In NS Inj 100 / 100 100 / 100 100 ML @ 200 mls/hr IV.SIG Q12H [facility] Rx#:[id number] Diflucan 400 mg Premix Bag 200 200 / 200 ML @ 100 mls/hr IV.SIG Q24H [facility] Rx#:[id number] Oral 720 / 720 480 / 480 Output: Urine 1100 / 1100 Urine Amount (Catheter) 1300 / 1300 Female External 1300 / 1300 Wound Drainage 0 / 0 # 1 Lower Anterior Medial 0 / 0 Abdomen Other: # Voids 2 Date of Last Bowel Movement 04/29/18 04/29/18 04/29/18 # Bowel Movements 0 0 Narrative: Alert and awake Abd: soft; sutures in place; non tender; EARNESTINE with serous drainage - Urinary Catheter Management Indwelling Urethral Catheter Cath placed during this visit: yes Urethral indwelling: Yes Reason for continuing: Hourly intake/output Insertion date: 04/19/18 Female External Cath placed during this visit: yes Reason for continuing: Not indwelling catheter Insertion date: 04/29/18 Results - Labs 05/01/18 02:00 05/01/18 03:00 Laboratory Results - last 24 hr 05/01/18 05/01/18 02:00 03:00 WBC 7.9 RBC 3.61 L Hgb 8.9 L Hct 28.7 L MCV 79.3 L MCH 24.7 L MCHC 31.1 L RDW 19.8 H Plt Count 430 D MPV 7.9 Prelim Diff (Auto) Slide review pending Neut % (Auto) 86.6 H Lymph % (Auto) 5.8 L [place] % (Auto) 7.3 Eos % (Auto) 0.0 Baso % (Auto) 0.3 Neut # (Auto) 6.8 Lymph # (Auto) 0.5 L [place] # (Auto) 0.6 Eos # (Auto) 0.0 Baso # (Auto) 0.0 WBC Differential Manual diff final Seg Neuts % (Manual) 85 H Band Neuts % (Manual) 5 Lymphocytes % (Manual) 4 L Monocytes % (Manual) 4 Metamyelocytes % (Man) 1 Myelocytes % (Man) 1 H Abs Neuts (Manual) 7.3 Differential Comment . Platelet Estimate Normal Platelet Morphology Normal Target Cells 1+ H Sodium 137 Potassium 4.0 Chloride 93 L Carbon Dioxide 37.3 H Anion Gap 7 BUN 14 Creatinine 0.80 Estimated GFR 72 L Random Glucose 142 H Calcium 8.4 L Phosphorus 2.8 D Magnesium 1.7 Albumin 1.5 L - Imaging Imaging: ITS Impressions Chest CTA 04/19/18 16:41 CONCLUSION: 1. No evidence of deep venous thrombosis. 2. Ascites in the upper abdomen and multiple small collections of free air. 3. The esophagus is prominent with air and fluid. These findings were called to [facility] the emergency room at 1852 hours. Chest X-Ray 04/29/18 00:00 CONCLUSION: Interval worsening of diffuse pulmonary infiltrates bilaterally consistent with worsening pulmonary edema or pneumonia. Clinical correlation is recommended. Abdomen/Pelvis CT 04/30/18 00:00 CONCLUSION: 1. Loculated fluid collection in Castellanos's pouch measuring up to 4.3 x 1.7 cm. Etiology unclear but cannot exclude small abscess. Trace loculated fluid also noted posterior to the right lobe liver. 2. Placement of a drain along the peripheral aspect of the right side of the liver with tip extending anterior to the pancreas. 3. Development of small bilateral pleural effusions with basilar lung disease suspicious for pneumonic infiltrate. 4. Previous free air and most free fluid has resolved. Bladder is distended. Previous left hip replacement. 5. Probable mild colitis. Gallbladder Ultrasound 04/30/18 00:00 CONCLUSION: 1. Small right perinephric fluid collection. Echogenic fatty liver. Assessment and Plan - Assessment (1) Right upper quadrant pain Code(s): R10.11 - Right upper quadrant pain Status: Acute (2) Duodenal ulcer with perforation Code(s): K26.5 - Chronic or unspecified duodenal ulcer with perforation Status : Acute (3) Atrial fibrillation with RVR Code(s): I48.91 - Unspecified atrial fibrillation Status: Resolved Onset Date: ~04/20/18 (4) History of peptic ulcer disease Code(s): Z87.11 - Personal history of peptic ulcer disease Status: Chronic (5) Alcohol use Code(s): Z78.9 - Other specified health status Status: Chronic (6) Tobacco use Code(s): Z72.0 - Tobacco use Status: Chronic (7) Asthma exacerbation in COPD Code(s): J44.1 - Chronic obstructive pulmonary disease with (acute) exacerbation ; J45.901 - Unspecified asthma with (acute) exacerbation Status: Chronic (8) Current chronic use of systemic steroids Code(s): Z79.52 - 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 MITRA LOPEZ Doing very well Tolerating diet eating chocolate ice cream Pain in the right upper quadrant improved Anticipate rehab placement early next week I agree with above assessment and plan. The exam, history, and the medical decision-making described in the above note were completed with the assistance of the mid-level provider. I reviewed and agree with the findings presented. I attest that I had a [id number] encounter with the patient on the same day, and personally performed and documented my assessment and findings in the medical record. The following services were provided during this hospital visit: Chart data review, vital sign assessments/reviewing monitor data Review of consultations notes if present. Medication orders/review and/or management Ordering and/or reviewing lab tests Ordering and/or interpreting/reviewing x-rays and/or diagnostic studies Care of the patient and discussion of the patient with the care team Documentation time To help prompt me to consider important information that might be impacting today's encounter and assessment, Information from prior notes written by myself or my colleagues may have been "brought forward/copy and pasted" into today's note.
[2018-05-01] MEDS: Pantoprazole Inj 40 MG Vial IV.PUSH SCH ×2 (11:39→20:30)
--- NOTE | 2018-05-01 11:53 | P.PNCA ---
Subjective Interval history: Patient currently denies any chest pain, pressure, palpitations, dizziness, edema or shortness of breath. Patient states that she is feeling better. Medications and Allergies Allergies Allergy/AdvReac Type Severity Reaction Status Date / Time No Known Allergies Allergy Unverified 03/12/18 19:51 Home Medications Medication Instructions Recorded Confirmed Type albuterol sulfate 1.25 mg INHALATION QID PRN 02/12/18 04/19/18 History albuterol sulfate [Ventolin HFA] 2 puff INHALATION Q4H PRN 02/12/18 04/19/18 History Active Medications: Active Medications Hydrocodone Bitart/Acetaminophen (Hycet 325/7.5 Mg Liq) 15 ml NG/OG Q4H PRN PRN Reason: pain 1 to 5\ Last Admin: 05/01/18 08:00 Dose: 15 ml Al Hydroxide/Mg Hydroxide (Milk Of Magnesia Liq) 30 ml PO Q12H PRN PRN Reason: Mild Constipation Albuterol (Albuterol Neb (Prn)) 2.5 mg NEB Q2HR NEB PRN PRN Reason: WHEEZING Last Admin: 04/28/18 00:56 Dose: 2.5 mg Albuterol (Duoneb Neb (Nikhil)) 1 ampul NEB Q6HR WHILE AWAKE NEB [facility] Last Admin: 05/01/18 09:43 Dose: 1 ampul Bisacodyl (Dulcolax Supp) 10 mg RECTAL DAILY PRN PRN Reason: SEVERE CONSITIPATION Diltiazem HCl (Cardizem) 30 mg PO QID [facility] Last Admin: 05/01/18 08:26 Dose: 30 mg Enoxaparin Sodium (Lovenox Inj) 40 mg SQ DAILY [facility] Last Admin: 05/01/18 08:25 Dose: 40 mg Fluconazole (Diflucan) 100 mg PO Q24H [facility] Guaifenesin (Mucinex Er) 600 mg PO BID [facility] Last Admin: 05/01/18 08:25 Dose: 600 mg Cefepime HCl 2,000 mg/ Sodium (Chloride) 100 mls @ 200 mls/hr IV.SIG Q12H [facility] Last Infusion: 05/01/18 00:39 Dose: Infused Lactobacillus Acidophilus (Lactinex) 1 tab NG/OG TID [facility] Last Admin: 05/01/18 08:26 Dose: 1 tab Lactulose (Lactulose Liq) 30 ml PO DAILY PRN PRN Reason: SEVERE CONSITIPATION Megestrol Acetate (Megace Liq) 40 mg PO BID [facility] Last Admin: 05/01/18 08:24 Dose: 40 mg Metronidazole (Flagyl) 500 mg PO Q8HR [facility] Last Admin: 05/01/18 05:08 Dose: 500 mg Naloxone HCl (Narcan Inj) 0.4 mg IV.PUSH UNSCH PRN PRN Reason: SEE LABEL COMMENTS Ondansetron HCl (Zofran Inj) 4 mg IV.PUSH Q6H PRN PRN Reason: NAUSEA OR VOMITING Last Admin: 04/24/18 17:01 Dose: 4 mg Pantoprazole Sodium (Protonix Inj) 40 mg IV.PUSH Q12HR [facility] Last Admin: 05/01/18 11:39 Dose: 40 mg Prednisone (Deltasone) 10 mg PO BID [facility] Last Admin: 05/01/18 08:26 Dose: 10 mg Senna/Docusate Sodium (Rupa-Colace) 1 tab PO BID [facility] Last Admin: 05/01/18 08:26 Dose: 1 tab Sennosides (Senokot) 17.2 mg PO Q12H PRN PRN Reason: Moderate Constipation Sodium Chloride (Ns Flush) 2 ml IV.FLUSH PRN PRN PRN Reason: FLUSH AFTER USING IV ACCESS Last Admin: 04/19/18 16:56 Dose: 2 ml Physical Exam Vital signs: Vital Signs 04/30/18 12:00 04/30/18 16:00 04/30/18 16:07 Temperature 97.8 F 97.8 F Pulse Rate 78 93 H 85 Respiratory Rate 15 18 15 Blood Pressure 122/60 140/88 Pulse Oximetry 95 97 04/30/18 19:00 04/30/18 19:45 04/30/18 20:00 Temperature 98.0 F Pulse Rate 92 H 86 Respiratory Rate 17 14 Blood Pressure 148/67 H Pulse Oximetry 100 96 100 05/01/18 00:00 05/01/18 04:00 05/01/18 08:00 Temperature 97.9 F 99 F Pulse Rate 84 82 85 Respiratory Rate 23 20 Blood Pressure 131/58 L 125/67 138/93 H Pulse Oximetry 98 99 94 L 05/01/18 08:30 05/01/18 09:00 05/01/18 09:43 Temperature Pulse Rate 104 H 91 H Respiratory Rate 18 15 Blood Pressure Pulse Oximetry 05/01/18 09:45 Temperature Pulse Rate Respiratory Rate Blood Pressure Pulse Oximetry 93 L Intake & Output 04/30/18 05/01/18 05/01/18 18:59 06:59 18:59 Intake Total 1020 / 1020 580 / 580 Output Total 1100 / 1100 1315 / 1315 Balance -80 / -80 -735 / -735 Weight 59.4 kg Intake: IV 300 / 300 100 / 100 Maxipime Inj 2,000 MG In NS Inj 100 / 100 100 / 100 100 ML @ 200 mls/hr IV.SIG Q12H [facility] Rx#:[id number] Diflucan 400 mg Premix Bag 200 200 / 200 ML @ 100 mls/hr IV.SIG Q24H [facility] Rx#:[id number] Oral 720 / 720 480 / 480 Output: Urine 1100 / 1100 Urine Amount (Catheter) 1300 / 1300 Female External 1300 / 1300 Wound Drainage 0 / 0 15 / 15 # 1 Lower Anterior Medial 0 / 0 Abdomen Other: # Voids 2 Date of Last Bowel Movement 04/29/18 04/29/18 04/29/18 # Bowel Movements 0 0 - Constitutional no acute distress - Routine HEENT Exam Head: Present: normocephalic Eye: Present: EOMI, PERRL ENT: Present: mucous membranes moist - Routine Neck Exam Present: full ROM - Routine Respiratory Exam Present: crackles Comments: Crackles noted bilaterally in lower lobes. Patient is still coughing up large amounts of sputum. - Routine Cardiovascular Exam Present: S1, S2. Absent: murmur, gallop, rubs - Routine Abdominal Exam Present: normoactive bowel sounds - Routine Extremities Exam Present: full ROM, pulses intact, normal capillary refill. Absent: cyanosis, clubbing, edema - Routine Skin Exam Present: intact - Routine Neurological Exam Present: oriented X3 - Detailed Neurological Exam: Coma Scale Eye Opening: Spontaneous Verbal Response: Oriented Motor Response: Obey commands Emmanuel Coma Scale Total: 15 - Routine Psychiatric Exam Present: normal affect - Urinary Catheter Management Indwelling Urethral Catheter Cath placed during this visit: yes Urethral indwelling: Yes Reason for continuing: Hourly intake/output Insertion date: 04/19/18 Female External Cath placed during this visit: yes Reason for continuing: Not indwelling catheter Insertion date: 04/29/18 Results 05/01/18 02:00 05/01/18 03:00 CBC 05/01/18 Range/Units 02:00 WBC 7.9 (4.0-11.0) th/mm3 RBC 3.61 L (4.00-5.30) mil/mm3 Hgb 8.9 L (11.6-15.3) gm/dL Hct 28.7 L (35.0-46.0) % Plt Count 430 D (150-450) th/mm3 Neut # (Auto) 6.8 (1.8-7.7) th/mm3 Lymph # (Auto) 0.5 L (1.0-4.8) th/mm3 [place] # (Auto) 0.6 (0.0-0.9) th/mm3 Eos # (Auto) 0.0 (0.0-0.4) th/mm3 Baso # (Auto) 0.0 (0.0-0.2) th/mm3 Comprehensive Metabolic Panel 05/01/18 Range/Units 03:00 Sodium 137 (136-145) meq/L Potassium 4.0 (3.5-5.1) meq/L Chloride 93 L (98-107) meq/L Carbon Dioxide 37.3 H (21.0-32.0) meq/L BUN 14 (7-18) mg/dL Creatinine 0.80 (0.50-1.00) mg/dL Calcium 8.4 L (8.5-10.1) mg/dL Albumin 1.5 L (3.4-5.0) g/dL Intake and Output 04/30/18 05/01/18 05/01/18 22:59 06:59 14:59 Intake Total 720 / 720 580 / 580 Output Total 1100 / 1100 1315 / 1315 Balance -380 / -380 -735 / -735 Intake: IV 100 / 100 Maxipime Inj 2,000 MG In NS Inj 100 / 100 100 ML @ 200 mls/hr IV.SIG Q12H [facility] Rx#:[id number] Oral 720 / 720 480 / 480 Output: Urine 1100 / 1100 Urine Amount (Catheter) 1300 / 1300 Female External 1300 / 1300 Wound Drainage 0 / 0 # 1 Lower Anterior Medial 0 0 Abdomen Other: # Voids 2 Date of Last Bowel Movement 04/29/18 04/29/18 # Bowel Movements 0 0 Weight 59.4 kg - Imaging and Cardiology Imaging: Impressions Abdomen/Pelvis CT 04/30/18 00:00 CONCLUSION: 1. Loculated fluid collection in Castellanos's pouch measuring up to 4.3 x 1.7 cm. Etiology unclear but cannot exclude small abscess. Trace loculated fluid also noted posterior to the right lobe liver. 2. Placement of a drain along the peripheral aspect of the right side of the liver with tip extending anterior to the pancreas. 3. Development of small bilateral pleural effusions with basilar lung disease suspicious for pneumonic infiltrate. 4. Previous free air and most free fluid has resolved. Bladder is distended. Previous left hip replacement. 5. Probable mild colitis. Gallbladder Ultrasound 04/30/18 00:00 CONCLUSION: 1. Small right perinephric fluid collection. Echogenic fatty liver. Assessment and Plan - Assessment (1) Atrial fibrillation with RVR Code(s): I48.91 - Unspecified atrial fibrillation Status: Resolved Onset Date: ~04/20/18 (2) Asthma exacerbation in COPD Code(s): J44.1 - Chronic obstructive pulmonary disease with (acute) exacerbation ; J45.901 - Unspecified asthma with (acute) exacerbation Status: Chronic (3) Diabetes Code(s): E11.9 - Type 2 diabetes mellitus without complications Status: Chronic (4) Alcohol use Code(s): Z78.9 - Other specified health status Status: Chronic (5) History of peptic ulcer disease Code(s): Z87.11 - Personal history of peptic ulcer disease Status: Chronic (6) Tobacco use Code(s): Z72.0 - Tobacco use Status: Chronic (7) Abdominal pain Code(s): R10.9 - Unspecified abdominal pain Status: Acute (8) Duodenal ulcer with perforation Code(s): K26.5 - Chronic or unspecified duodenal ulcer with perforation Status : Acute (9) Pneumonia Code(s): J18.9 - Pneumonia, unspecified organism Status: Acute - Plan Remains in sinus rhythm with PVCs, continue current cardiac treatment plan. Patient currently on Lovenox. The risk of longterm full anticoagulation outweighs the benefit at this time. Pulmonary and ID evaluation in progress. Increase activity as tolerates. We will continue to follow during her hospitalization. The patient was seen and evaluated by Dr. Canales who participated in care, management and decision-making. - Attending Attestation Patient seen and examined. I reviewed and agree with the evaluation and plan as presented. Overall improvement. Continue current program. Increase activity as tolerated. (7) Abdominal pain Qualifiers: Qualified Code(s): R10.84 - Generalized abdominal pain
[2018-05-01] MEDS ORDERED: Fluconazole 100 MG Tablet PO SCH (12:00)
--- NOTE | 2018-05-01 14:11 | P.PNPL ---
Subjective Interval history: Patient is lying in bed in NAD. Afebrile. Physical Exam Vital signs: Vital Signs 04/30/18 16:00 04/30/18 16:07 04/30/18 19:00 Temperature 97.8 F Pulse Rate 93 H 85 Respiratory Rate 18 15 Blood Pressure 140/88 Pulse Oximetry 97 100 04/30/18 19:45 04/30/18 20:00 05/01/18 00:00 Temperature 98.0 F 97.9 F Pulse Rate 92 H 86 84 Respiratory Rate 17 14 23 Blood Pressure 148/67 H 131/58 L Pulse Oximetry 96 100 98 05/01/18 04:00 05/01/18 08:00 05/01/18 08:30 Temperature 99 F Pulse Rate 82 85 Respiratory Rate 20 18 Blood Pressure 125/67 138/93 H Pulse Oximetry 99 94 L 05/01/18 09:00 05/01/18 09:43 05/01/18 09:45 Temperature Pulse Rate 104 H 91 H Respiratory Rate 15 Blood Pressure Pulse Oximetry 93 L 05/01/18 12:00 Temperature 98.8 F Pulse Rate 94 H Respiratory Rate 18 Blood Pressure 125/96 H Pulse Oximetry 100 Intake & Output 04/30/18 05/01/18 05/01/18 18:59 06:59 18:59 Intake Total 1020 / 1020 580 / 580 Output Total 1100 / 1100 1315 / 1315 Balance -80 / -80 -735 / -735 Weight 59.4 kg Intake: IV 300 / 300 100 / 100 Maxipime Inj 2,000 MG In NS Inj 100 / 100 100 / 100 100 ML @ 200 mls/hr IV.SIG Q12H [facility] Rx#:[id number] Diflucan 400 mg Premix Bag 200 200 / 200 ML @ 100 mls/hr IV.SIG Q24H [facility] Rx#:[id number] Oral 720 / 720 480 / 480 Output: Urine 1100 / 1100 Urine Amount (Catheter) 1300 / 1300 Female External 1300 / 1300 Wound Drainage 0 / 0 15 / 15 # 1 Lower Anterior Medial 0 / 0 15 Abdomen Other: # Voids 2 Date of Last Bowel Movement 04/29/18 04/29/18 04/29/18 # Bowel Movements 0 0 - Constitutional no acute distress - Routine HEENT Exam Head: Present: normocephalic, atraumatic Eye: Present: EOMI, PERRL, normal accommodation, conjunctivae pink ENT: Present: mucous membranes moist - Routine Neck Exam Present: supple, full ROM, trachea midline - Routine Respiratory Exam Present: CTA bilaterally - Routine Cardiovascular Exam Present: RRR, S1, S2 - Routine Abdominal Exam Present: soft, normoactive bowel sounds - Routine Extremities Exam Present: full ROM - Routine Skin Exam Present: intact, dry - Routine Neurological Exam Present: alert, oriented X3, CN II-XII intact - Routine Psychiatric Exam Present: normal affect - Urinary Catheter Management Indwelling Urethral Catheter Cath placed during this visit: yes Urethral indwelling: Yes Reason for continuing: Hourly intake/output Insertion date: 04/19/18 Female External Cath placed during this visit: yes Reason for continuing: Not indwelling catheter Insertion date: 04/29/18 Assessment and Plan - Plan 1)Resp Insuff 2)COPD on 2.5-3L home oxygen 3)s/p lap repair of duodenal ulcer 4)Leukocytosis 5)Anemia 6)Pleural effusion s/p right thoracentesis with removal 1200 ml pleural fluid( transudative) Plan Continue with oxygen keep sats >92% Bronchodilators, on Prednisone 10mg BID BIPAP PRN Give Diamox 250mg IV x1, check CXR Continue with abx ( Cefepime, Flagyl, Diflucan)Monitor for signs of infections ( fever, WBC) GI/DVT prophylaxis Continue treatment plan
--- NOTE | 2018-05-02 03:56 | XR ---
EXAM DATE: 05/02/2018 3:52 AM EDT AGE/SEX: 67 years / Female INDICATIONS: Infiltrates. CLINICAL DATA: This is the patient's subsequent encounter. Patient reports that signs and symptoms h ave been present for 2 weeks and indicates a pain score of 0/10. MEDICAL/SURGICAL HISTORY: Diabetes mellitus type II. Chronic obstructive pulmonary disease. L upus. Tubal ligation. COMPARISON: [facility] – [place]ST 1V SINGLE AP, 04/29/2018. . FINDINGS: Considerably improved parenchymal opacities in the interim, now very mild and mostly at the bases. No large effusions seen. No pneumothorax. Heart size stable, within normal limits. CONCLUSION: Decreased bilateral infiltrates, now mild. Electronically signed by: Marlon Nascimento MD 05/02/2018 3:55 AM EDT
[2018-05-02] MEDS: Acetaminophen-HYDROcodone 325/7.5 Liq 15 ML UDC NG/OG PRN ×4 (03:58→18:40)
[2018-05-02] MEDS: metroNIDAZOLE 500 MG Tablet PO SCH ×3 (05:10→21:26)
[2018-05-02 05:53] LABS: Baso % (Auto) 0.2 % (0.0-2.0); Eos % (Auto) 0.2 % (0.0-4.0); Hematocrit 30.2 % (35.0-46.0); Hemoglobin 9.3 gm/dL (11.6-15.3); Lymph # (Auto) 0.8 th/mm3 (1.0-4.8); Lymph % (Auto) 11.5 % (9.0-44.0); Mean Corpuscular Hemoglobin 24.8 pg (27.0-34.0); Mean Corpuscular Volume 80.4 fL (80.0-100.0); Mean Platelet Volume 7.8 fL (7.0-11.0); Mono # (Auto) 0.5 th/mm3 (0.0-0.9); Mono % (Auto) 8.1 % (0.0-8.0); Neut # (Auto) 5.3 th/mm3 (1.8-7.7); Platelet Count 453 th/mm3 (150-450); Red Blood Count 3.75 mil/mm3 (4.00-5.30); Red Cell Distribution Width 19.6 % (11.6-17.2); White Blood Count 6.7 th/mm3 (4.0-11.0)
[2018-05-02 06:04] LABS: Mean Corpuscular HGB Conc 30.8 % (32.0-36.0)
[2018-05-02 06:10] LABS: Albumin 1.6 g/dL (3.4-5.0); Anion Gap 8 meq/L (5-15); Blood Urea Nitrogen 12 mg/dL (7-18); Calcium 8.5 mg/dL (8.5-10.1); Carbon Dioxide 36.1 meq/L (21.0-32.0); Chloride 92 meq/L (98-107); Glomerular Filtration Rate Greater Than 89 mL/min (>89); Glucose,Random 138 mg/dL (74-106); Magnesium 1.6 mg/dL (1.5-2.5); Phosphorus 2.9 mg/dL (2.5-4.9); Potassium 3.6 meq/L (3.5-5.1); Sodium 136 meq/L (136-145)
[2018-05-02] MEDS: Megestrol Acetate Liq 400 MG/10 ML UDC PO SCH ×2 (08:11→21:27)
[2018-05-02] MEDS: dilTIAZem 30 MG Tablet PO SCH ×4 (08:12→21:26)
[2018-05-02] MEDS: Enoxaparin Inj 40 MG/0.4 ML Syringe SQ SCH (08:12)
[2018-05-02] MEDS: Lactobacillus Acidophilus/L. Spores Tablet NG/OG SCH ×3 (08:12→18:00)
[2018-05-02] MEDS: predniSONE 10 MG Tablet PO SCH ×2 (08:13→21:26)
[2018-05-02] MEDS: guaiFENesin 600 MG ER Tablet PO SCH ×2 (08:13→21:26)
[2018-05-02] MEDS: Pantoprazole Inj 40 MG Vial IV.PUSH SCH ×2 (08:13→21:26)
[2018-05-02] MEDS: Senna/Docusate Sodium 8.6/50 MG Tablet PO SCH ×2 (08:13→21:26)
[2018-05-02 08:14] LABS: Target Cells 1+
--- NOTE | 2018-05-02 09:32 | P.PNIM ---
Subjective Interval history: Patient says she is feeling well today. Reports right upper quadrant pain improved. Shortness of breath improving. Denies any chest pain Physical Exam Vital signs: Vital Signs 05/01/18 09:43 05/01/18 09:45 05/01/18 12:00 Temperature 98.8 F Pulse Rate 91 H 94 H Respiratory Rate 15 18 Blood Pressure 125/96 H Pulse Oximetry 93 L 100 05/01/18 15:55 05/01/18 15:56 05/01/18 16:00 Temperature 99 F Pulse Rate 92 H 85 Respiratory Rate 17 15 18 Blood Pressure 128/64 Pulse Oximetry 100 05/01/18 18:39 05/01/18 19:34 05/01/18 19:38 Temperature Pulse Rate 95 H Respiratory Rate 18 17 Blood Pressure Pulse Oximetry 100 05/01/18 20:00 05/02/18 00:55 05/02/18 07:28 Temperature 97.9 F 99.3 F Pulse Rate 98 H 91 H 88 Respiratory Rate 25 H 17 16 Blood Pressure 116/69 116/64 Pulse Oximetry 98 96 98 05/02/18 08:00 Temperature 97.4 F L Pulse Rate 78 Respiratory Rate 16 Blood Pressure 121/59 L Pulse Oximetry 99 Intake & Output 05/01/18 05/02/18 05/02/18 18:59 06:59 18:59 Intake Total 600 / 600 440 / 440 Output Total 1200 / 1200 Balance -600 / -600 430 / 430 Weight 57 kg Intake: IV 200 / 200 Maxipime Inj 2,000 MG In NS Inj 200 / 200 100 ML @ 200 mls/hr IV.SIG Q12H [facility] Rx#:[id number] Oral 600 / 600 240 / 240 Output: Urine Amount (Catheter) 1200 / 1200 Female External 1200 / 1200 Wound Drainage # 1 Lower Anterior Medial Abdomen Other: # Voids 1 Date of Last Bowel Movement 04/29/18 05/01/18 Narrative: GENERAL: Patient sitting up in bed. Appears comfortable. SKIN: Warm and dry. HEAD: Normocephalic. EYES: No scleral icterus. No injection or drainage. NECK: Supple, trachea midline. No JVD or lymphadenopathy. CARDIOVASCULAR: Regular rate and rhythm without murmurs, gallops, or rubs. RESPIRATORY: Breath sounds equal bilaterally. No accessory muscle use. GASTROINTESTINAL: Abdomen soft, non-tender, nondistended. MUSCULOSKELETAL: No cyanosis, or edema. Abdominal incisions clean dry and intact. BACK: Nontender without obvious deformity. No CVA tenderness. - Urinary Catheter Management Indwelling Urethral Catheter Cath placed during this visit: yes Urethral indwelling: Yes Reason for continuing: Hourly intake/output Insertion date: 04/19/18 Female External Cath placed during this visit: yes Reason for continuing: Not indwelling catheter Insertion date: 04/29/18 Results - Labs CBC & Chem 7: 05/02/18 04:18 05/02/18 04:18 Laboratory Results - last 24 hr 05/02/18 05/02/18 04:18 04:18 WBC 6.7 RBC 3.75 L Hgb 9.3 L Hct 30.2 L MCV 80.4 MCH 24.8 L MCHC 30.8 L RDW 19.6 H Plt Count 453 H MPV 7.8 Prelim Diff (Auto) Slide review pending Neut % (Auto) 80.0 H Lymph % (Auto) 11.5 [place] % (Auto) 8.1 H Eos % (Auto) 0.2 Baso % (Auto) 0.2 Neut # (Auto) 5.3 Lymph # (Auto) 0.8 L [place] # (Auto) 0.5 Eos # (Auto) 0.0 Baso # (Auto) 0.0 WBC Differential . Diff Scan Auto diff confirmed Differential Comment . Platelet Estimate High H Platelet Morphology Enlarged H Target Cells 1+ H Sodium 136 Potassium 3.6 Chloride 92 L Carbon Dioxide 36.1 H Anion Gap 8 BUN 12 Creatinine 0.63 Estimated GFR Greater than 89 Random Glucose 138 H Calcium 8.5 Phosphorus 2.9 Magnesium 1.6 Albumin 1.6 L Microbiology 04/28/18 14:10 Fluid - Pleural fluid Gram Stain - Final 04/28/18 14:10 Fluid - Pleural fluid Body Fluid Culture - Final No growth in 72 hours (aerobically and anaerobically ) - Imaging Impressions Chest X-Ray 05/02/18 00:00 CONCLUSION: Decreased bilateral infiltrates, now mild. - Procedures Exploratory laparotomy repair of perforated duodenal ulcer with Michel patch Assessment and Plan - Plan 67-year-old female with perforated duodenal ulcer: //Perforated duodenal ulcer s/p ex laparoscopy with Michel Patch Dr. Kelley 04/19. Continue postoperative care, pain control general surgery following. On pured diet as tolerated, tolerated ensure that with poor appetite. Short course of antibiotics for peritoneal contamination as per below, then H pylori treatment Patient did not tolerate p.o. Augmentin and p.o. Diflucan will restart IV Zofran and IV Diflucan until patient can tolerate p.o. Continue IV fluid hydration due to poor p.o. intake. Encourage physical therapy. =Hemoglobin stable. = Continue postoperative management as per surgical service. //COPD on 2.5-3 L home O2 //Fluid overload on 04/27 //Right sided pleural effusion. Ongoing tobacco abuse = 04/27. Repeat chest x-ray with worsening what appears to be edema. We'll discontinue IV fluids and diuresis.. = 04/28. Worsening respiratory status. Does not appear to be CHF as BNP is not elevated. Will repeat chest x-ray. Transfer to ICU. Notified pulmonology. =04/29. Status post right-sided thoracentesis. Appreciate ICU assistance. diuresis again today. Pulmonology following. Appreciate assistance. = 04/30. Respiratory status stable. Continue fluid restrictions. Recheck labs tomorrow. =-05/01. Respiratory status improved on 2 L nasal cannula. Pleural effusion culture is negative at this time. Repeat chest x-ray tomorrow. cont to monitor = 05/02. Chest x-ray with improving effusions. No mild. Appreciate pulmonology assistance. //Afib with RVR: Rate currently controlled. Chads 2 score of 2 she needs to be anticoagulated when cleared by general surgery. = 04/28 with what appears to be SVT with rate of 200. Will start on low-dose diltiazem. Recheck EKG. Consult cardiology. =04/29. Continue low-dose diltiazem. Appreciate cardiology assistance. = 05/01. Cardiology following. Continue diltiazem. Heart rate controlled. Continue to monitor. //Alcohol abuse Thiamine 100 mg IV daily will change to p.o. Monitor for signs and symptoms of alcohol withdrawal. //Elevated lipase - No evidence of pancreatitis on CT, may be secondary to inflammation from duodenal perf. //BLAS Hypokalemia Monitor intake and output. Monitor electrolytes and replace as indicated. Aggressive electrolyte replacement Replete = Creatinine stable. Continue to monitor. //Sepsis secondary to perforated duodenal ulcer with abscess and intra- abdominal contamination. F/u blood culture negative to date. Previously on zosyn, diflucan, levaquin since April 20 for intraabdominal contamination. General surgery has changed to Augmentin, Diflucan on 04/24 however will restart IV Zosyn due to poor p.o. intake and not able to tolerate p.o. medication. = 04/28. Infectious disease consult ordered on 04/27. Follow-up recommendations. Appreciate assistance. = 04/30. Infectious disease following. Continue antibiotics as per infectious disease. Right upper quadrant ultrasound with perinephric fluid collection. Likely ascites. No CVA tenderness. = 05/01. Continue antibiotics as per infectious disease. Appreciate assistance. 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 No active symptoms of C diff prior to this presentation, tested to determine colonization status on admission. Will continue vancomycin po 125 mg qid for C diff secondary prophylaxis given history of recurrence Added Lactinex = ID following. Appreciate assistance. //Chronic prednisone use Has been on prednisone 20 mg po bid, reportedly since 03/14, due to COPD. (Has hx of SLE, not on therapy). Ideally should be off steroids given duodenal ulcers. Discontinue IV steroids. //Leukocytosiscould be due to previous prednisone use, which is now on hold. Concern for underlying infection and will check portable chest x-ray and sputum cultures. Repeat CBC in the morning = Afebrile. White blood cell count 23.9. Continue to monitor. Continue antibiotics and consult infectious disease. = 04/28. Follow-up infectious disease recommendations. =04/29. Continue antibiotics as per infectious disease. Appreciate assistance. Leukocytosis improving at 16 today. Continue to monitor. = 04/30. Afebrile. Follow-up labs tomorrow. ID following. Appreciate assistance. = 05/01. Leukocytosis resolved 7.9. Continue antibiotics as per infectious disease. Appreciate assistance. Continue to monitor. PROPH: SCD for DVT prophylaxis. Protonix Discharge Planning: continue inpatient treatment. Hopefully discharge to rehab/SNF in 1-2 days. We will need infectious disease, surgery clearance.
--- NOTE | 2018-05-02 10:11 | P.PNPL ---
Subjective Interval history: No events overnight on 3L oxygen. Feeling better CXR this morning overall improved with decrease infiltrates. Physical Exam Vital signs: Vital Signs 05/01/18 12:00 05/01/18 15:55 05/01/18 15:56 Temperature 98.8 F Pulse Rate 94 H 92 H Respiratory Rate 18 17 15 Blood Pressure 125/96 H Pulse Oximetry 100 05/01/18 16:00 05/01/18 18:39 05/01/18 19:34 Temperature 99 F Pulse Rate 85 95 H Respiratory Rate 18 18 17 Blood Pressure 128/64 Pulse Oximetry 100 05/01/18 19:38 05/01/18 20:00 05/02/18 00:55 Temperature 97.9 F 99.3 F Pulse Rate 98 H 91 H Respiratory Rate 25 H 17 Blood Pressure 116/69 116/64 Pulse Oximetry 100 98 96 05/02/18 07:28 05/02/18 08:00 Temperature 97.4 F L Pulse Rate 88 78 Respiratory Rate 16 16 Blood Pressure 121/59 L Pulse Oximetry 98 99 Intake & Output 05/01/18 05/02/18 05/02/18 18:59 06:59 18:59 Intake Total 600 / 600 440 / 440 Output Total 1200 / 1200 10 Balance -600 / -600 430 / 430 Weight 57 kg Intake: IV 200 / 200 Maxipime Inj 2,000 MG In NS Inj 200 / 200 100 ML @ 200 mls/hr IV.SIG Q12H [facility] Rx#:[id number] Oral 600 / 600 240 / 240 Output: Urine Amount (Catheter) 1200 / 1200 Female External 1200 / 1200 Wound Drainage # 1 Lower Anterior Medial Abdomen Other: # Voids 1 Date of Last Bowel Movement 04/29/18 05/01/18 05/01/18 - Constitutional no acute distress - Routine HEENT Exam Head: Present: normocephalic, atraumatic Eye: Present: EOMI, PERRL, normal accommodation, conjunctivae pink ENT: Present: mucous membranes moist - Routine Neck Exam Present: supple, full ROM, trachea midline - Routine Respiratory Exam Present: CTA bilaterally - Routine Cardiovascular Exam Present: RRR, S1, S2 - Routine Abdominal Exam Present: soft, normoactive bowel sounds - Routine Skin Exam Present: intact, dry - Routine Neurological Exam Present: alert, oriented X3, CN II-XII intact - Routine Psychiatric Exam Present: normal affect - Urinary Catheter Management Indwelling Urethral Catheter Cath placed during this visit: yes Urethral indwelling: Yes Reason for continuing: Hourly intake/output Insertion date: 04/19/18 Female External Cath placed during this visit: yes Reason for continuing: Not indwelling catheter Insertion date: 04/29/18 Assessment and Plan - Plan 1)Resp Insuff 2)COPD on 2.5-3L home oxygen 3)s/p lap repair of duodenal ulcer 4)Leukocytosis 5)Anemia 6)Pleural effusion s/p right thoracentesis with removal 1200 ml pleural fluid( transudative) Plan Continue with oxygen keep sats >92% Bronchodilators, on Prednisone 10mg BID BIPAP PRN Give Diamox 500mg IV x1, CXR today overall improved with decrease infiltrates Continue with abx ( Cefepime, Flagyl, Diflucan)Monitor for signs of infections ( fever, WBC) GI/DVT prophylaxis- on Protonix and Lovenox respectively. Continue treatment plan
--- NOTE | 2018-05-02 10:54 | P.PNID ---
Subjective Remarks: Patient is a 67-year-old female, brought into the hospital for evaluation of 2 day history of abdominal distention and abdominal pain. She apparently has been drinking alcohol most of the day because of the abdominal pain. She had some nausea and vomiting, but has had normal stool. She denies any fever or chills. She has known COPD and has had some complaints of shortness of breath but no cough or any chest pain. On evaluation, CT of the abdomen and pelvis showed free air with free fluid. She was taken to surgery emergently, and had laparoscopic surgery, repair of a perforated duodenal ulcer with Michel patch, with obvious finding of contamination, and abscess. Postoperatively she had some brief problem with paroxysmal atrial fibrillation. Since postop she her appetite has been poor. She had some diarrhea briefly, but her stools have been normal. She is still has poor p.o. intake although it has improved a little bit. Complains of abdominal pain. Patient stated that since last night her shortness of breath has gotten worse. She is currently on a nonrebreather mask, and she was on a BiPAP machine overnight. Patient still has the EARNESTINE drain in place, and output is serous. Since April 23 she has developed mild leukocytosis of 12,000, but since April 25 her white count has been greater than 20,000. Patient has been started on antibiotics. She is currently on Diflucan, Augmentin, and Zosyn. She has had some trouble swallowing pills. Patient is coughing up phlegm and brings up usually yellowish phlegm. She has no urinary complaints. Her last 2 chest x-ray has shown a large pleural effusion on the right and a small effusion on the left Infectious disease consultation has been requested to evaluate the patient with worsening leukocytosis. She is afebrile. Notes reviewed Afebrile Breathing is better On nasal O2 RUQ pain better Eating better WBC down to normal CT with small fluid collection in Castellanos's pouch and in posterior aspect R lobe liver (US with possible perinephric fluid R) - also with possible mild thickening of bowel Pleural fluid C/S negative CXR better Antibiotics: Cefepime Flagyl Diflucan Past Medical History: C. difficile colitis COPD (chronic obstructive pulmonary disease) Diabetes Lupus History of total left hip replacement Hx of tubal ligation Allergies/Adverse Reactions: Allergies No Known Allergies Allergy (Unverified 03/12/18 19:51) Objective Vital Signs 05/01/18 12:00 05/01/18 15:55 05/01/18 15:56 Temperature 98.8 F Pulse Rate 94 H 92 H Respiratory Rate 18 17 15 Blood Pressure 125/96 H Pulse Oximetry 100 05/01/18 16:00 05/01/18 18:39 05/01/18 19:34 Temperature 99 F Pulse Rate 85 95 H Respiratory Rate 18 18 17 Blood Pressure 128/64 Pulse Oximetry 100 05/01/18 19:38 05/01/18 20:00 05/02/18 00:55 Temperature 97.9 F 99.3 F Pulse Rate 98 H 91 H Respiratory Rate 25 H 17 Blood Pressure 116/69 116/64 Pulse Oximetry 100 98 96 05/02/18 07:28 05/02/18 08:00 Temperature 97.4 F L Pulse Rate 88 78 Respiratory Rate 16 16 Blood Pressure 121/59 L Pulse Oximetry 98 99 Intake & Output 05/01/18 05/02/18 05/02/18 18:59 06:59 18:59 Intake Total 600 / 600 440 / 440 Output Total 1200 / 1200 10 Balance -600 / -600 430 / 430 Weight 57 kg Intake: IV 200 / 200 Maxipime Inj 2,000 MG In NS Inj 200 / 200 100 ML @ 200 mls/hr IV.SIG Q12H [facility] Rx#:[id number] Oral 600 / 600 240 / 240 Output: Urine Amount (Catheter) 1200 / 1200 Female External 1200 / 1200 Wound Drainage # 1 Lower Anterior Medial Abdomen Other: # Voids 1 Date of Last Bowel Movement 04/29/18 05/01/18 05/01/18 04/28/18 14:10 Fluid - Pleural fluid Gram Stain - Final 04/28/18 14:10 Fluid - Pleural fluid Body Fluid Culture - Final No growth in 72 hours (aerobically and anaerobically ) 04/28/18 14:25 Abscess - Chest Acid Fast Bacilli Smear - Final No acid fast bacilli seen 04/28/18 14:25 Abscess - Chest Mycobacterial Culture - Pending Lab - Hematology Results 05/01/18 05/02/18 02:00 04:18 WBC 7.9 6.7 RBC 3.61 L 3.75 L Hgb 8.9 L 9.3 L Hct 28.7 L 30.2 L MCV 79.3 L 80.4 MCH 24.7 L 24.8 L MCHC 31.1 L 30.8 L RDW 19.8 H 19.6 H Plt Count 430 D 453 H MPV 7.9 7.8 Prelim Diff (Auto) Slide review pending Slide review pending Neut % (Auto) 86.6 H 80.0 H Lymph % (Auto) 5.8 L 11.5 Long % (Auto) 7.3 8.1 H Eos % (Auto) 0.0 0.2 Baso % (Auto) 0.3 0.2 Neut # (Auto) 6.8 5.3 Lymph # (Auto) 0.5 L 0.8 L Long # (Auto) 0.6 0.5 Eos # (Auto) 0.0 0.0 Baso # (Auto) 0.0 0.0 WBC Differential Manual diff final . Diff Scan Auto diff confirmed Seg Neuts % (Manual) 85 H Band Neuts % (Manual) 5 Lymphocytes % (Manual) 4 L Monocytes % (Manual) 4 Metamyelocytes % (Man) 1 Myelocytes % (Man) 1 H Abs Neuts (Manual) 7.3 Differential Comment . . Platelet Estimate Normal High H Platelet Morphology Normal Enlarged H Target Cells 1+ H 1+ H Lab - Chemistry Results 05/01/18 05/02/18 03:00 04:18 Sodium 137 136 Potassium 4.0 3.6 Chloride 93 L 92 L Carbon Dioxide 37.3 H 36.1 H Anion Gap 7 8 BUN 14 12 Creatinine 0.80 0.63 Estimated GFR 72 L Greater than 89 Random Glucose 142 H 138 H Calcium 8.4 L 8.5 Phosphorus 2.8 D 2.9 Magnesium 1.7 1.6 Albumin 1.5 L 1.6 L Imaging: ITS Impressions Chest CTA 04/19/18 16:41 CONCLUSION: 1. No evidence of deep venous thrombosis. 2. Ascites in the upper abdomen and multiple small collections of free air. 3. The esophagus is prominent with air and fluid. These findings were called to [facility] the emergency room at 1852 hours. Abdomen/Pelvis CT 04/30/18 00:00 CONCLUSION: 1. Loculated fluid collection in Castellanos's pouch measuring up to 4.3 x 1.7 cm. Etiology unclear but cannot exclude small abscess. Trace loculated fluid also noted posterior to the right lobe liver. 2. Placement of a drain along the peripheral aspect of the right side of the liver with tip extending anterior to the pancreas. 3. Development of small bilateral pleural effusions with basilar lung disease suspicious for pneumonic infiltrate. 4. Previous free air and most free fluid has resolved. Bladder is distended. Previous left hip replacement. 5. Probable mild colitis. Gallbladder Ultrasound 04/30/18 00:00 CONCLUSION: 1. Small right perinephric fluid collection. Echogenic fatty liver. Chest X-Ray 05/02/18 00:00 CONCLUSION: Decreased bilateral infiltrates, now mild. Physical Exam: GENERAL: awake and alert, not in distress SKIN: Cool and dry. No generalized rash, no ecchymoses and no evidence of embolic lesions. HEAD: Atraumatic. Normocephalic. No temporal wasting, or tenderness. EYES: [place] conjunctiva. No petechia or hemorrhage. Pupils equal, round and reactive to light. Extraocular movements full and intact. No scleral icterus. No injection or drainage. EARS, NOSE AND THROAT: Nose without bleeding or purulent nasal discharge. No sinus tenderness. Mucous membranes pink and moist. No oral lesions noted.. NECK: Trachea midline. Supple and not tender, no meningeal signs CARDIOVASCULAR: Regular rate and rhythm. No rubs or gallops heard RESPIRATORY: Rales at the bases ABDOMEN: Mild distended abdomen, hypoactive bowel sound, minimal tenderness R side. EARNESTINE drain midline with serous fluid. Incisions from her laparoscopy dry with sutures, no evidence of infection. No guarding or rebound. EXTREMITIES: No clubbing, cyanosis, or edema. No joint effusion, has good ROM. No calf tenderness. Well perfused and warm. NEUROLOGICAL: Grossly non-focal. PSYCHIATRIC: Normal affect, calm and cooperative. LINE: No evidence of infection Assessment and Plan - Plan Impression Worsening leukocytosis, etiology? - has a very large effusion on R, possible PNA - S/P laparoscopy for perf DU with abscess, ?post op abscess - no diarrhea - voiding ok COPD Respiratory failure, worse likely due to large effusion, better post tap Likely with PNA S/P laparoscopy fro perf DU Recommendation Clinically improving Change cefepime to levaquin Continue Flagyl Stop Diflucan Give 10 days Abx Monitor progress
[2018-05-02] MEDS: levoFLOXacin 750 MG Tablet PO SCH (12:28)
--- NOTE | 2018-05-02 15:21 | P.PNGS ---
Subjective Patient reports: feels better Physical Exam Vital signs: Vital Signs 05/01/18 15:55 05/01/18 15:56 05/01/18 16:00 Temperature 99 F Pulse Rate 92 H 85 Respiratory Rate 17 15 18 Blood Pressure 128/64 Pulse Oximetry 100 05/01/18 18:39 05/01/18 19:34 05/01/18 19:38 Temperature Pulse Rate 95 H Respiratory Rate 18 17 Blood Pressure Pulse Oximetry 100 05/01/18 20:00 05/02/18 00:55 05/02/18 07:28 Temperature 97.9 F 99.3 F Pulse Rate 98 H 91 H 88 Respiratory Rate 25 H 17 16 Blood Pressure 116/69 116/64 Pulse Oximetry 98 96 98 05/02/18 08:00 05/02/18 12:00 05/02/18 14:15 Temperature 97.4 F L 97.9 F Pulse Rate 78 88 104 H Respiratory Rate 16 16 16 Blood Pressure 121/59 L 111/56 L Pulse Oximetry 99 99 Intake & Output 05/01/18 05/02/18 05/02/18 18:59 06:59 18:59 Intake Total 600 / 600 440 / 440 100 / 100 Output Total 1200 / 1200 10 Balance -600 / -600 430 / 430 100 / 100 Weight 57 kg Intake: IV 200 / 200 100 / 100 Maxipime Inj 2,000 MG In NS Inj 200 / 200 100 / 100 100 ML @ 200 mls/hr IV.SIG Q12H [facility] Rx#:[id number] Oral 600 / 600 240 / 240 Output: Urine Amount (Catheter) 1200 / 1200 Female External 1200 / 1200 Wound Drainage # 1 Lower Anterior Medial Abdomen Other: # Voids 1 Date of Last Bowel Movement 04/29/18 05/01/18 05/01/18 - Constitutional no acute distress - Routine Abdominal Exam Present: soft - Urinary Catheter Management Indwelling Urethral Catheter Cath placed during this visit: yes Urethral indwelling: Yes Reason for continuing: Hourly intake/output Insertion date: 04/19/18 Female External Cath placed during this visit: yes Reason for continuing: Not indwelling catheter Insertion date: 04/29/18 Results - Labs 05/02/18 04:18 05/02/18 04:18 Laboratory Results - last 24 hr 05/02/18 05/02/18 04:18 04:18 WBC 6.7 RBC 3.75 L Hgb 9.3 L Hct 30.2 L MCV 80.4 MCH 24.8 L MCHC 30.8 L RDW 19.6 H Plt Count 453 H MPV 7.8 Prelim Diff (Auto) Slide review pending Neut % (Auto) 80.0 H Lymph % (Auto) 11.5 [place] % (Auto) 8.1 H Eos % (Auto) 0.2 Baso % (Auto) 0.2 Neut # (Auto) 5.3 Lymph # (Auto) 0.8 L [place] # (Auto) 0.5 Eos # (Auto) 0.0 Baso # (Auto) 0.0 WBC Differential . Diff Scan Auto diff confirmed Differential Comment . Platelet Estimate High H Platelet Morphology Enlarged H Target Cells 1+ H Sodium 136 Potassium 3.6 Chloride 92 L Carbon Dioxide 36.1 H Anion Gap 8 BUN 12 Creatinine 0.63 Estimated GFR Greater than 89 Random Glucose 138 H Calcium 8.5 Phosphorus 2.9 Magnesium 1.6 Albumin 1.6 L - Imaging Imaging: ITS Impressions Chest CTA 04/19/18 16:41 CONCLUSION: 1. No evidence of deep venous thrombosis. 2. Ascites in the upper abdomen and multiple small collections of free air. 3. The esophagus is prominent with air and fluid. These findings were called to [facility] the emergency room at 1852 hours. Abdomen/Pelvis CT 04/30/18 00:00 CONCLUSION: 1. Loculated fluid collection in Castellanos's pouch measuring up to 4.3 x 1.7 cm. Etiology unclear but cannot exclude small abscess. Trace loculated fluid also noted posterior to the right lobe liver. 2. Placement of a drain along the peripheral aspect of the right side of the liver with tip extending anterior to the pancreas. 3. Development of small bilateral pleural effusions with basilar lung disease suspicious for pneumonic infiltrate. 4. Previous free air and most free fluid has resolved. Bladder is distended. Previous left hip replacement. 5. Probable mild colitis. Gallbladder Ultrasound 04/30/18 00:00 CONCLUSION: 1. Small right perinephric fluid collection. Echogenic fatty liver. Chest X-Ray 05/02/18 00:00 CONCLUSION: Decreased bilateral infiltrates, now mild. Assessment and Plan - Assessment (1) Right upper quadrant pain Code(s): R10.11 - Right upper quadrant pain Status: Acute (2) Duodenal ulcer with perforation Code(s): K26.5 - Chronic or unspecified duodenal ulcer with perforation Status : Acute Plan: 67yo female s/p duodenal perforation, stable -s/p lap repair of duodenal ulcer -s/p thoracentesis; breathing much easier now -Continue diet as tolerated with Ensure shakes -OOB; PT following - EARNESTINE drain clear (3) Atrial fibrillation with RVR Code(s): I48.91 - Unspecified atrial fibrillation Status: Resolved Onset Date: ~04/20/18 (4) History of peptic ulcer disease Code(s): Z87.11 - Personal history of peptic ulcer disease Status: Chronic (5) Alcohol use Code(s): Z78.9 - Other specified health status Status: Chronic (6) Tobacco use Code(s): Z72.0 - Tobacco use Status: Chronic (7) Asthma exacerbation in COPD Code(s): J44.1 - Chronic obstructive pulmonary disease with (acute) exacerbation ; J45.901 - Unspecified asthma with (acute) exacerbation Status: Chronic (8) Current chronic use of systemic steroids 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
[2018-05-03] MEDS: Acetaminophen-HYDROcodone 325/7.5 Liq 15 ML UDC NG/OG PRN ×6 (00:09→21:54)
[2018-05-03] MEDS: metroNIDAZOLE 500 MG Tablet PO SCH ×3 (05:01→21:54)
[2018-05-03] MEDS: levoFLOXacin 750 MG Tablet PO SCH (09:20)
[2018-05-03] MEDS: Senna/Docusate Sodium 8.6/50 MG Tablet PO SCH ×2 (09:20→20:44)
[2018-05-03] MEDS: Lactobacillus Acidophilus/L. Spores Tablet NG/OG SCH ×3 (09:20→17:30)
[2018-05-03] MEDS: dilTIAZem 30 MG Tablet PO SCH ×4 (09:20→20:43)
[2018-05-03] MEDS: predniSONE 10 MG Tablet PO SCH ×2 (09:20→20:44)
[2018-05-03] MEDS: Enoxaparin Inj 40 MG/0.4 ML Syringe SQ SCH (09:20)
[2018-05-03] MEDS: Pantoprazole Inj 40 MG Vial IV.PUSH SCH (09:20)
[2018-05-03] MEDS: guaiFENesin 600 MG ER Tablet PO SCH ×2 (09:20→20:43)
[2018-05-03] MEDS: Megestrol Acetate Liq 400 MG/10 ML UDC PO SCH ×2 (09:21→20:43)
--- NOTE | 2018-05-03 10:05 | P.PN ---
Subjective Interval history: This is a pleasant 67 y/o Female with COPD, tobacco dependence, DM II, who came to ER with abdominal pain and abdominal distension, CT showed intra-abdominal free air and free fluid. Dr. Kelley has evaluated and will be taking for exp lap. Se received vanc and zosyn in ER, Perforated duodenal ulcer was identified. She has undergone laparoscopic repair with Michel patch. There was significant intra-abdominal contamination with abscess evacuation, irrigation, and EARNESTINE placement. She received 1300 crystalloid, EBL 10, UOP 275. She was extubated postoperatively to CA. Heart rate down to 101, normotensive. NGT has been inserted and placed to LIWS with small bilious output. had episode of Atrial Fibrillation with RVR, Followed by Pulmonary specialsit due to Respiratory insufficiency, has COPD, status post laparoscopic repair of duodenal ulcer Leukocytosis, pleural effusion status post Right thoracentesis with removal of 1200 ml of pleuritic fluid transudate, oxygen saturation over 92%, BiPAP PRN, Prednisone 10 mg BID, Diamox 500 mg IV once, ID specialist following, worsening Leukocytosis has a very large effusion questioned possible Right PNA, Status post laparoscopy for perforated Duodenal Ulcer with abscess, questioned post operative abscess, clinically improving, recommended to change Cefepime to Levaquin, continue Flagyl, and stopped Diflucan to continue antibiotics for 10 days. Physical Exam Vital signs: Vital Signs 05/02/18 12:00 05/02/18 14:15 05/02/18 16:00 Temperature 97.9 F 97.8 F Pulse Rate 88 104 H 98 H Respiratory Rate 16 16 18 Blood Pressure 111/56 L 115/58 L Pulse Oximetry 99 98 05/02/18 20:00 05/03/18 00:00 05/03/18 08:00 Temperature 98.2 F 97.7 F 97.1 F L Pulse Rate 89 85 78 Respiratory Rate 18 18 16 Blood Pressure 121/58 L 110/58 L 107/59 L Pulse Oximetry 98 93 L 91 L Intake & Output 05/02/18 05/03/18 05/03/18 18:59 06:59 18:59 Intake Total 100 / 100 340 / 340 Output Total 500 / 500 20 / 20 Balance -400 / -400 320 / 320 Weight 57.6 kg Intake: IV 100 / 100 100 / 100 Maxipime Inj 2,000 MG In NS Inj 100 / 100 100 / 100 100 ML @ 200 mls/hr IV.SIG Q12H [facility] Rx#:[id number] Oral 240 / 240 Output: Urine 500 / 500 Wound Drainage / # 1 Lower Anterior Medial 20 / 20 Abdomen Other: # Voids 3 Date of Last Bowel Movement 05/01/18 05/02/18 # Bowel Movements 1 1 Narrative: GENERAL: Patient in sitting position, no acute distress. SKIN: Warm and dry. HEAD: Normocephalic. EYES: No scleral icterus. No injection or drainage. NECK: Supple, trachea midline. No JVD or lymphadenopathy. CARDIOVASCULAR: Regular rate and rhythm without murmurs, gallops, or rubs. RESPIRATORY: Breath sounds equal bilaterally. No accessory muscle use. GASTROINTESTINAL: Abdomen soft, non-tender, nondistended. MUSCULOSKELETAL: No cyanosis, or edema. Abdominal incisions clean dry and intact. BACK: Nontender without obvious deformity. No CVA tenderness. - Urinary Catheter Management Indwelling Urethral Catheter Cath placed during this visit: yes Urethral indwelling: Yes Reason for continuing: Hourly intake/output Insertion date: 04/19/18 Female External Cath placed during this visit: yes Reason for continuing: Not indwelling catheter Insertion date: 04/29/18 Results - Labs CBC & Chem 7: 05/02/18 04:18 05/04/18 09:25 - Imaging Chest X-Ray 05/02/18 00:00 CONCLUSION: Decreased bilateral infiltrates, now mild. - Procedures Exploratory laparotomy repair of perforated duodenal ulcer with Michel patch Assessment and Plan - Plan 67-year-old female with perforated duodenal ulcer: //Perforated duodenal ulcer s/p ex laparoscopy with Michel Patch Dr. Kelley 04/19. Continue postoperative care, pain control general surgery following. Short course of antibiotics for peritoneal contamination as per below, then H pylori treatment Patient did not tolerate p.o. Augmentin and p.o. Diflucan recommended by ID specialist to continue Levaquin and Flagyl for 10 days. Encourage ambulation. =Hemoglobin stable. //COPD on 2.5-3 L home O2 //Fluid overload on 04/27 //Right sided pleural effusion. status post Thoracentesis improving condition. Ongoing tobacco abuse = 04/27. Repeat chest x-ray with worsening what appears to be edema. We'll discontinue IV fluids and diuresis.. = 04/28. Worsening respiratory status. Does not appear to be CHF as BNP is not elevated. Will repeat chest x-ray. Transfer to ICU. Notified pulmonology. =04/29. Status post right-sided thoracentesis. Appreciate ICU assistance. diuresis again today. Pulmonology following. Appreciate assistance. = 04/30. Respiratory status stable. Continue fluid restrictions. Recheck labs tomorrow. =-05/01. Respiratory status improved on 2 L nasal cannula. Pleural effusion culture is negative at this time. Repeat chest x-ray tomorrow. cont to monitor = 05/02. Chest x-ray with improving effusions. No mild. Appreciate pulmonology assistance. status post thoracentesis. 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 as per foot specialist. Rate currently controlled. Chads 2 score of 2 she needs to be anticoagulated when cleared by general surgery. //Alcohol abuse Thiamine 100 mg IV daily will change to p.o. Monitor for signs and symptoms of alcohol withdrawal. //Elevated lipase - No evidence of pancreatitis on CT, may be secondary to inflammation from duodenal perf. //Sepsis secondary to perforated duodenal ulcer with abscess and intra- abdominal contamination. F/u blood culture negative to date. Previously on zosyn, diflucan, levaquin since April 20 for intraabdominal contamination. General surgery has changed to Augmentin, Diflucan on 04/24 however will restart IV Zosyn due to poor p.o. intake and not able to tolerate p.o. medication. now on Levaquin and Flagyl. 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 No active symptoms of C diff prior to this presentation. = ID following. Appreciate assistance. //Chronic prednisone use as per supplier quality specialist on Prednisone 10 mg BID. //Leukocytosiscould be due to previous prednisone use, which is now on hold. Concern for underlying infection and will check portable chest x-ray and sputum cultures. Repeat CBC in the morning PROPH: SCD for DVT prophylaxis. Protonix Code Status: Full code Discussed Condition With: patient and nurse. Discharge Planning: Discharge Planning: continue inpatient treatment. Hopefully discharge to rehab/SNF in 1-2 days. We will need infectious disease, surgery clearance.
--- NOTE | 2018-05-03 10:10 | P.PNPL ---
Subjective Interval history: Patient is lying in bed in NAD. On 3L oxygen. Physical Exam Vital signs: Vital Signs 05/02/18 12:00 05/02/18 14:15 05/02/18 16:00 Temperature 97.9 F 97.8 F Pulse Rate 88 104 H 98 H Respiratory Rate 16 16 18 Blood Pressure 111/56 L 115/58 L Pulse Oximetry 99 98 05/02/18 20:00 05/03/18 00:00 05/03/18 08:00 Temperature 98.2 F 97.7 F 97.1 F L Pulse Rate 89 85 78 Respiratory Rate 18 18 16 Blood Pressure 121/58 L 110/58 L 107/59 L Pulse Oximetry 98 93 L 91 L Intake & Output 05/02/18 05/03/18 05/03/18 18:59 06:59 18:59 Intake Total 100 / 100 340 / 340 Output Total 500 / 500 20 / 20 Balance -400 / -400 320 / 320 Weight 57.6 kg Intake: IV 100 / 100 100 / 100 Maxipime Inj 2,000 MG In NS Inj 100 / 100 100 / 100 100 ML @ 200 mls/hr IV.SIG Q12H [facility] Rx#:[id number] Oral 240 / 240 Output: Urine 500 / 500 Wound Drainage # 1 Lower Anterior Medial Abdomen Other: # Voids 3 Date of Last Bowel Movement 05/01/18 05/02/18 # Bowel Movements 1 1 - Constitutional no acute distress - Routine HEENT Exam Head: Present: normocephalic, atraumatic Eye: Present: EOMI, PERRL, normal accommodation, conjunctivae pink ENT: Present: mucous membranes moist - Routine Neck Exam Present: supple, full ROM, trachea midline - Routine Respiratory Exam Present: CTA bilaterally - Routine Cardiovascular Exam Present: RRR, S1, S2 - Routine Abdominal Exam Present: soft, normoactive bowel sounds - Routine Extremities Exam Present: full ROM - Routine Skin Exam Present: intact, dry - Routine Neurological Exam Present: alert, oriented X3, CN II-XII intact - Routine Psychiatric Exam Present: normal affect - Urinary Catheter Management Indwelling Urethral Catheter Cath placed during this visit: yes Urethral indwelling: Yes Reason for continuing: Hourly intake/output Insertion date: 04/19/18 Female External Cath placed during this visit: yes Reason for continuing: Not indwelling catheter Insertion date: 04/29/18 Assessment and Plan - Plan 1)Resp Insuff 2)COPD on 2.5-3L home oxygen 3)s/p lap repair of duodenal ulcer 4)Leukocytosis 5)Anemia 6)Pleural effusion s/p right thoracentesis with removal 1200 ml pleural fluid( transudative) Plan Continue with oxygen keep sats >92% Bronchodilators, on Prednisone 10mg BID BIPAP PRN CXR 05/02 overall improved with decrease infiltrates Abx changed to PO Levaquin, on Flagyl, Monitor for signs of infections ( fever, WBC) GI/DVT prophylaxis- on Protonix and Lovenox respectively. Continue treatment plan
--- NOTE | 2018-05-03 11:07 | P.PNGS ---
Subjective Patient reports: no new complaints, feels better, pain is less, flatus, bowel movement Interval history: DAILY PROGRESS NOTE FOR SURGICAL ATTENDING, DR. MITRA LOPEZ Patient transfer to floor Ambulating in room Tolerating diet She feels like she is getting stronger She is anticipating going to [facility] for recovery Physical Exam Vital signs: Vital Signs 05/02/18 12:00 05/02/18 14:15 05/02/18 16:00 Temperature 97.9 F 97.8 F Pulse Rate 88 104 H 98 H Respiratory Rate 16 16 18 Blood Pressure 111/56 L 115/58 L Pulse Oximetry 99 98 05/02/18 20:00 05/03/18 00:00 05/03/18 08:00 Temperature 98.2 F 97.7 F 97.1 F L Pulse Rate 89 85 78 Respiratory Rate 18 18 16 Blood Pressure 121/58 L 110/58 L 107/59 L Pulse Oximetry 98 93 L 91 L 05/03/18 10:35 Temperature Pulse Rate Respiratory Rate Blood Pressure Pulse Oximetry 98 Intake & Output 05/02/18 05/03/18 05/03/18 18:59 06:59 18:59 Intake Total 100 / 100 340 / 340 Output Total 500 / 500 Balance -400 / -400 320 / 320 Weight 57.6 kg Intake: IV 100 / 100 100 / 100 Maxipime Inj 2,000 MG In NS Inj 100 / 100 100 / 100 100 ML @ 200 mls/hr IV.SIG Q12H ADE[facility]YO Rx#:[id number] Oral 240 / 240 Output: Urine 500 / 500 Wound Drainage # 1 Lower Anterior Medial Abdomen Other: # Voids 3 Date of Last Bowel Movement 05/01/18 05/02/18 # Bowel Movements 1 1 Narrative: Sitting up in bed On nasal oxygen Has a little cough Abdomen soft EARNESTINE clear drainage wound healing Extremities moves all extremities well - Urinary Catheter Management Indwelling Urethral Catheter Cath placed during this visit: yes Urethral indwelling: Yes Reason for continuing: Hourly intake/output Insertion date: 04/19/18 Female External Cath placed during this visit: yes Reason for continuing: Not indwelling catheter Insertion date: 04/29/18 Results - Labs 05/02/18 04:18 05/02/18 04:18 - Imaging Imaging: ITS Impressions Chest CTA 04/19/18 16:41 CONCLUSION: 1. No evidence of deep venous thrombosis. 2. Ascites in the upper abdomen and multiple small collections of free air. 3. The esophagus is prominent with air and fluid. These findings were called to [facility] the emergency room at 1852 hours. Abdomen/Pelvis CT 04/30/18 00:00 CONCLUSION: 1. Loculated fluid collection in Castellanos's pouch measuring up to 4.3 x 1.7 cm. Etiology unclear but cannot exclude small abscess. Trace loculated fluid also noted posterior to the right lobe liver. 2. Placement of a drain along the peripheral aspect of the right side of the liver with tip extending anterior to the pancreas. 3. Development of small bilateral pleural effusions with basilar lung disease suspicious for pneumonic infiltrate. 4. Previous free air and most free fluid has resolved. Bladder is distended. Previous left hip replacement. 5. Probable mild colitis. Gallbladder Ultrasound 04/30/18 00:00 CONCLUSION: 1. Small right perinephric fluid collection. Echogenic fatty liver. Chest X-Ray 05/02/18 00:00 CONCLUSION: Decreased bilateral infiltrates, now mild. Assessment and Plan - Assessment (1) Right upper quadrant pain Code(s): R10.11 - Right upper quadrant pain Status: Acute (2) Duodenal ulcer with perforation Code(s): K26.5 - Chronic or unspecified duodenal ulcer with perforation Status : Acute (3) Atrial fibrillation with RVR Code(s): I48.91 - Unspecified atrial fibrillation Status: Resolved Onset Date: ~04/20/18 (4) History of peptic ulcer disease Code(s): Z87.11 - Personal history of peptic ulcer disease Status: Chronic (5) Alcohol use Code(s): Z78.9 - Other specified health status Status: Chronic (6) Tobacco use Code(s): Z72.0 - Tobacco use Status: Chronic (7) Asthma exacerbation in COPD Code(s): J44.1 - Chronic obstructive pulmonary disease with (acute) exacerbation ; J45.901 - Unspecified asthma with (acute) exacerbation Status: Chronic (8) Current chronic use of systemic steroids Code(s): 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 MITRA LOPEZ I attest that I had a [id number] encounter with the patient on the same day, and personally performed and documented my assessment and findings in the medical record. The following services were provided during this hospital visit: Chart data review, vital sign assessments/reviewing monitor data Review of consultations notes if present. Medication orders/review and/or management Ordering and/or reviewing lab tests Ordering and/or interpreting/reviewing x-rays and/or diagnostic studies Care of the patient and discussion of the patient with the care team Documentation time To help prompt me to consider important information that might be impacting today's encounter and assessment, Information from prior notes written by myself or my colleagues may have been "brought forward/copy and pasted" into today's note.
[2018-05-03] MEDS: Magnesium Oxide 400 MG Tablet PO SCH ×2 (13:05→20:44)
--- NOTE | 2018-05-03 13:18 | P.PNID ---
Subjective Remarks: Patient is a 67-year-old female, brought into the hospital for evaluation of 2 day history of abdominal distention and abdominal pain. She apparently has been drinking alcohol most of the day because of the abdominal pain. She had some nausea and vomiting, but has had normal stool. She denies any fever or chills. She has known COPD and has had some complaints of shortness of breath but no cough or any chest pain. On evaluation, CT of the abdomen and pelvis showed free air with free fluid. She was taken to surgery emergently, and had laparoscopic surgery, repair of a perforated duodenal ulcer with Michel patch, with obvious finding of contamination, and abscess. Postoperatively she had some brief problem with paroxysmal atrial fibrillation. Since postop she her appetite has been poor. She had some diarrhea briefly, but her stools have been normal. She is still has poor p.o. intake although it has improved a little bit. Complains of abdominal pain. Patient stated that since last night her shortness of breath has gotten worse. She is currently on a nonrebreather mask, and she was on a BiPAP machine overnight. Patient still has the EARNESTINE drain in place, and output is serous. Since April 23 she has developed mild leukocytosis of 12,000, but since April 25 her white count has been greater than 20,000. Patient has been started on antibiotics. She is currently on Diflucan, Augmentin, and Zosyn. She has had some trouble swallowing pills. Patient is coughing up phlegm and brings up usually yellowish phlegm. She has no urinary complaints. Her last 2 chest x-ray has shown a large pleural effusion on the right and a small effusion on the left Infectious disease consultation has been requested to evaluate the patient with worsening leukocytosis. She is afebrile. Notes reviewed Afebrile On nasal O2 Breathing is better RUQ pain better Eating better WBC down to normal CT with small fluid collection in Castellanos's pouch and in posterior aspect R lobe liver (US with possible perinephric fluid R) - also with possible mild thickening of bowel Pleural fluid C/S negative CXR better Antibiotics: Levaquin Flagyl Past Medical History: C. difficile colitis COPD (chronic obstructive pulmonary disease) Diabetes Lupus History of total left hip replacement Hx of tubal ligation Allergies/Adverse Reactions: Allergies No Known Allergies Allergy (Unverified 03/12/18 19:51) Objective Vital Signs 05/02/18 14:15 05/02/18 16:00 05/02/18 20:00 Temperature 97.8 F 98.2 F Pulse Rate 104 H 98 H 89 Respiratory Rate 16 18 18 Blood Pressure 115/58 L 121/58 L Pulse Oximetry 98 98 05/03/18 00:00 05/03/18 08:00 05/03/18 10:35 Temperature 97.7 F 97.1 F L Pulse Rate 85 78 Respiratory Rate 18 16 Blood Pressure 110/58 L 107/59 L Pulse Oximetry 93 L 91 L 98 05/03/18 12:00 Temperature 97.1 F L Pulse Rate 100 H Respiratory Rate 17 Blood Pressure 121/58 L Pulse Oximetry 94 L Intake & Output 05/02/18 05/03/18 05/03/18 18:59 06:59 18:59 Intake Total 100 / 100 340 / 340 Output Total 500 / 500 20 Balance -400 / -400 320 / 320 Weight 57.6 kg Intake: IV 100 / 100 100 / 100 Maxipime Inj 2,000 MG In NS Inj 100 / 100 100 / 100 100 ML @ 200 mls/hr IV.SIG Q12H ADE[facility]YO Rx#:[id number] Oral 240 / 240 Output: Urine 500 / 500 Wound Drainage # 1 Lower Anterior Medial Abdomen Other: # Voids 3 Date of Last Bowel Movement 05/01/18 05/02/18 05/02/18 # Bowel Movements 1 1 04/28/18 14:10 Fluid - Pleural fluid Gram Stain - Final 04/28/18 14:10 Fluid - Pleural fluid Body Fluid Culture - Final No growth in 72 hours (aerobically and anaerobically ) 04/28/18 14:25 Abscess - Chest Acid Fast Bacilli Smear - Final No acid fast bacilli seen 04/28/18 14:25 Abscess - Chest Mycobacterial Culture - Pending Lab - Hematology Results 05/02/18 04:18 WBC 6.7 RBC 3.75 L Hgb 9.3 L Hct 30.2 L MCV 80.4 MCH 24.8 L MCHC 30.8 L RDW 19.6 H Plt Count 453 H MPV 7.8 Prelim Diff (Auto) Slide review pending Neut % (Auto) 80.0 H Lymph % (Auto) 11.5 [place] % (Auto) 8.1 H Eos % (Auto) 0.2 Baso % (Auto) 0.2 Neut # (Auto) 5.3 Lymph # (Auto) 0.8 L [place] # (Auto) 0.5 Eos # (Auto) 0.0 Baso # (Auto) 0.0 WBC Differential . Diff Scan Auto diff confirmed Differential Comment . Platelet Estimate High H Platelet Morphology Enlarged H Target Cells 1+ H Lab - Chemistry Results 05/02/18 04:18 Sodium 136 Potassium 3.6 Chloride 92 L Carbon Dioxide 36.1 H Anion Gap 8 BUN 12 Creatinine 0.63 Estimated GFR Greater than 89 Random Glucose 138 H Calcium 8.5 Phosphorus 2.9 Magnesium 1.6 Albumin 1.6 L Imaging: ITS Impressions Chest CTA 04/19/18 16:41 CONCLUSION: 1. No evidence of deep venous thrombosis. 2. Ascites in the upper abdomen and multiple small collections of free air. 3. The esophagus is prominent with air and fluid. Abdomen/Pelvis CT 04/30/18 00:00 CONCLUSION: 1. Loculated fluid collection in Castellanos's pouch measuring up to 4.3 x 1.7 cm. Etiology unclear but cannot exclude small abscess. Trace loculated fluid also noted posterior to the right lobe liver. 2. Placement of a drain along the peripheral aspect of the right side of the liver with tip extending anterior to the pancreas. 3. Development of small bilateral pleural effusions with basilar lung disease suspicious for pneumonic infiltrate. 4. Previous free air and most free fluid has resolved. Bladder is distended. Previous left hip replacement. 5. Probable mild colitis. Gallbladder Ultrasound 04/30/18 00:00 CONCLUSION: 1. Small right perinephric fluid collection. Echogenic fatty liver. Chest X-Ray 05/02/18 00:00 CONCLUSION: Decreased bilateral infiltrates, now mild. Physical Exam: GENERAL: awake and alert, not in distress SKIN: Cool and dry. No generalized rash, no ecchymoses and no evidence of embolic lesions. HEAD: Atraumatic. Normocephalic. No temporal wasting, or tenderness. EYES: Pollock conjunctiva. No petechia or hemorrhage. Pupils equal, round and reactive to light. Extraocular movements full and intact. No scleral icterus. No injection or drainage. EARS, NOSE AND THROAT: Nose without bleeding or purulent nasal discharge. No sinus tenderness. Mucous membranes pink and moist. No oral lesions noted.. NECK: Trachea midline. Supple and not tender, no meningeal signs CARDIOVASCULAR: Regular rate and rhythm. No rubs or gallops heard RESPIRATORY: Rales at the bases ABDOMEN: Mild distended abdomen, hypoactive bowel sound, minimal tenderness R side. EARNESTINE drain midline with serous fluid. Incisions from her laparoscopy dry with sutures, no evidence of infection. No guarding or rebound. EXTREMITIES: No clubbing, cyanosis, or edema. No joint effusion, has good ROM. No calf tenderness. Well perfused and warm. NEUROLOGICAL: Grossly non-focal. PSYCHIATRIC: Normal affect, calm and cooperative. LINE: No evidence of infection Assessment and Plan - Plan Impression Worsening leukocytosis, etiology? - has a very large effusion on R, possible PNA - S/P laparoscopy for perf DU with abscess, ?post op abscess - no diarrhea - voiding ok COPD Respiratory failure, worse likely due to large effusion, better post tap Likely with PNA S/P laparoscopy fro perf DU Recommendation Continue levaquin Continue Flagyl Give 10 days Abx [facility] Monitor progress Clinically improving and stable from ID standpoint
[2018-05-04] MEDS: Acetaminophen-HYDROcodone 325/7.5 Liq 15 ML UDC NG/OG PRN ×4 (02:11→14:05)
[2018-05-04] MEDS: metroNIDAZOLE 500 MG Tablet PO SCH ×2 (05:05→13:45)
[2018-05-04 10:06] LABS: Anion Gap 6 meq/L (5-15); Blood Urea Nitrogen 12 mg/dL (7-18); Calcium 8.4 mg/dL (8.5-10.1); Carbon Dioxide 32.1 meq/L (21.0-32.0); Chloride 98 meq/L (98-107); Glomerular Filtration Rate Greater Than 89 mL/min (>89); Glucose,Random 128 mg/dL (74-106); Magnesium 1.2 mg/dL (1.5-2.5); Potassium 3.7 meq/L (3.5-5.1); Sodium 136 meq/L (136-145)
[2018-05-04] MEDS: Enoxaparin Inj 40 MG/0.4 ML Syringe SQ SCH (10:08)
[2018-05-04] MEDS: dilTIAZem 30 MG Tablet PO SCH ×2 (10:09→13:45)
[2018-05-04] MEDS: Lactobacillus Acidophilus/L. Spores Tablet NG/OG SCH ×2 (10:09→13:45)
[2018-05-04] MEDS: predniSONE 10 MG Tablet PO SCH (10:09)
[2018-05-04] MEDS: Magnesium Oxide 400 MG Tablet PO SCH (10:09)
[2018-05-04] MEDS: levoFLOXacin 750 MG Tablet PO SCH (10:09)
[2018-05-04] MEDS: Senna/Docusate Sodium 8.6/50 MG Tablet PO SCH (10:09)
[2018-05-04] MEDS: guaiFENesin 600 MG ER Tablet PO SCH (10:09)
[2018-05-04] MEDS: Megestrol Acetate Liq 400 MG/10 ML UDC PO SCH (10:10)
--- NOTE | 2018-05-04 12:18 | P.PNGS ---
Subjective Interval history: DAILY PROGRESS NOTE FOR SURGICAL ATTENDING, DR. MITRA LOPEZ Ready to go to [facility]---she likes their food better Wants sutures out and drain out Feeling much better Physical Exam Vital signs: Vital Signs 05/03/18 16:00 05/03/18 20:00 05/03/18 20:10 Temperature 97.9 F 98.0 F Pulse Rate 89 89 90 Respiratory Rate 16 18 18 Blood Pressure 112/55 L 109/54 L Pulse Oximetry 97 93 L 98 05/03/18 21:50 05/04/18 00:40 05/04/18 08:00 Temperature 97.9 F 97.2 F L Pulse Rate 82 80 Respiratory Rate 16 14 Blood Pressure 109/58 L 145/69 H Pulse Oximetry 99 99 98 05/04/18 09:17 Temperature Pulse Rate 99 H Respiratory Rate 16 Blood Pressure Pulse Oximetry 90 L Intake & Output 05/03/18 05/04/18 05/04/18 18:59 06:59 18:59 Intake Total 240 / 240 Output Total 20 / 20 Balance 220 / 220 Weight 57.5 kg Intake: Oral 240 / 240 Output: Wound Drainage 20 / 20 # 1 Lower Anterior Medial 20 / 20 Abdomen Other: # Voids 4 Date of Last Bowel Movement 05/02/18 # Bowel Movements 1 Narrative: Alert and awake Abd: sutures in place; EARNESTINE with serous drainage - Urinary Catheter Management Indwelling Urethral Catheter Cath placed during this visit: yes Urethral indwelling: Yes Reason for continuing: Hourly intake/output Insertion date: 04/19/18 Female External Cath placed during this visit: yes Reason for continuing: Not indwelling catheter Insertion date: 04/29/18 Results - Labs 05/02/18 04:18 05/04/18 09:25 Laboratory Results - last 24 hr 05/04/18 05/04/18 09:25 09:25 Sodium 136 Potassium 3.7 Chloride 98 Carbon Dioxide 32.1 H Anion Gap 6 BUN 12 Creatinine 0.56 Estimated GFR Greater than 89 Random Glucose 128 H Calcium 8.4 L Phosphorus 2.0 L Cancelled Magnesium 1.2 L - Imaging Imaging: ITS Impressions Chest CTA 04/19/18 16:41 CONCLUSION: 1. No evidence of deep venous thrombosis. 2. Ascites in the upper abdomen and multiple small collections of free air. 3. The esophagus is prominent with air and fluid. These findings were called to [facility] the emergency room at 1852 hours. Abdomen/Pelvis CT 04/30/18 00:00 CONCLUSION: 1. Loculated fluid collection in Castellanos's pouch measuring up to 4.3 x 1.7 cm. Etiology unclear but cannot exclude small abscess. Trace loculated fluid also noted posterior to the right lobe liver. 2. Placement of a drain along the peripheral aspect of the right side of the liver with tip extending anterior to the pancreas. 3. Development of small bilateral pleural effusions with basilar lung disease suspicious for pneumonic infiltrate. 4. Previous free air and most free fluid has resolved. Bladder is distended. Previous left hip replacement. 5. Probable mild colitis. Gallbladder Ultrasound 04/30/18 00:00 CONCLUSION: 1. Small right perinephric fluid collection. Echogenic fatty liver. Chest X-Ray 05/02/18 00:00 CONCLUSION: Decreased bilateral infiltrates, now mild. Assessment and Plan - Assessment (1) Right upper quadrant pain Code(s): R10.11 - Right upper quadrant pain Status: Acute (2) Duodenal ulcer with perforation Code(s): K26.5 - Chronic or unspecified duodenal ulcer with perforation Status : Acute (3) Atrial fibrillation with RVR Code(s): I48.91 - Unspecified atrial fibrillation Status: Resolved Onset Date: ~04/20/18 (4) History of peptic ulcer disease Code(s): Z87.11 - Personal history of peptic ulcer disease Status: Chronic (5) Alcohol use Code(s): Z78.9 - Other specified health status Status: Chronic (6) Tobacco use Code(s): Z72.0 - Tobacco use Status: Chronic (7) Asthma exacerbation in COPD Code(s): J44.1 - Chronic obstructive pulmonary disease with (acute) exacerbation ; J45.901 - Unspecified asthma with (acute) exacerbation Status: Chronic (8) Current chronic use of systemic steroids Code(s): Z79.52 - skilled nursing (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 MITRA LOPEZ EARNESTINE drain removed Sutures removed from abdomen Needs follow-up appointment in 2 weeks after leaving the hospital Okay to go to [facility] I agree with above assessment and plan. The exam, history, and the medical decision-making described in the above note were completed with the assistance of the mid-level provider. I reviewed and agree with the findings presented. I attest that I had a [id number] encounter with the patient on the same day, and personally performed and documented my assessment and findings in the medical record. The following services were provided during this hospital visit: Chart data review, vital sign assessments/reviewing monitor data Review of consultations notes if present. Medication orders/review and/or management Ordering and/or reviewing lab tests Ordering and/or interpreting/reviewing x-rays and/or diagnostic studies Care of the patient and discussion of the patient with the care team Documentation time To help prompt me to consider important information that might be impacting today's encounter and assessment, Information from prior notes written by myself or my colleagues may have been "brought forward/copy and pasted" into today's note.
--- NOTE | 2018-05-04 13:09 | P.PNCA ---
Subjective Interval history: Patient denies any chest pain, pressure, palpitations, dizziness or shortness of breath. Patient states she feels great and is ready to go to rehab at [facility]. Medications and Allergies Allergies Allergy/AdvReac Type Severity Reaction Status Date / Time No Known Allergies Allergy Unverified 03/12/18 19:51 Home Medications Medication Instructions Recorded Confirmed Type albuterol sulfate 1.25 mg INHALATION QID PRN 02/12/18 04/19/18 History albuterol sulfate [Ventolin HFA] 2 puff INHALATION Q4H PRN 02/12/18 04/19/18 History Active Medications: Active Medications Hydrocodone Bitart/Acetaminophen (Hycet 325/7.5 Mg Liq) 15 ml NG/OG Q4H PRN PRN Reason: pain 1 to 5\ Last Admin: 05/04/18 10:10 Dose: 15 ml Al Hydroxide/Mg Hydroxide (Milk Of Magnesia Liq) 30 ml PO Q12H PRN PRN Reason: Mild Constipation Albuterol (Albuterol Neb (Prn)) 2.5 mg NEB Q2HR NEB PRN PRN Reason: WHEEZING Last Admin: 05/04/18 09:16 Dose: 2.5 mg Bisacodyl (Dulcolax Supp) 10 mg RECTAL DAILY PRN PRN Reason: SEVERE CONSITIPATION Diltiazem HCl (Cardizem) 30 mg PO QID [facility] Last Admin: 05/04/18 10:09 Dose: 30 mg Enoxaparin Sodium (Lovenox Inj) 40 mg SQ DAILY [facility] Last Admin: 05/04/18 10:08 Dose: 40 mg Guaifenesin (Mucinex Er) 600 mg PO BID [facility] Last Admin: 05/04/18 10:09 Dose: 600 mg Lactobacillus Acidophilus (Lactinex) 1 tab NG/OG TID [facility] Last Admin: 05/04/18 10:09 Dose: 1 tab Lactulose (Lactulose Liq) 30 ml PO DAILY PRN PRN Reason: SEVERE CONSITIPATION Levofloxacin (Levaquin) 750 mg PO DAILY [facility] Stop: 05/07/18 11:59 Last Admin: 05/04/18 10:09 Dose: 750 mg Magnesium Oxide (Mag-Ox) 400 mg PO BID [facility] Last Admin: 05/04/18 10:09 Dose: 400 mg Megestrol Acetate (Megace Liq) 40 mg PO BID [facility] Last Admin: 05/04/18 10:10 Dose: 40 mg Metronidazole (Flagyl) 500 mg PO Q8HR [facility] Stop: 05/07/18 23:00 Last Admin: 05/04/18 05:05 Dose: 500 mg Naloxone HCl (Narcan Inj) 0.4 mg IV.PUSH UNSCH PRN PRN Reason: SEE LABEL COMMENTS Ondansetron HCl (Zofran Inj) 4 mg IV.PUSH Q6H PRN PRN Reason: NAUSEA OR VOMITING Last Admin: 04/24/18 17:01 Dose: 4 mg Pantoprazole Sodium (Protonix) 40 mg PO BID [facility] Last Admin: 05/04/18 10:09 Dose: 40 mg Prednisone (Deltasone) 10 mg PO BID [facility] Last Admin: 05/04/18 10:09 Dose: 10 mg Senna/Docusate Sodium (Rupa-Colace) 1 tab PO BID [facility] Last Admin: 05/04/18 10:09 Dose: Not Given Sennosides (Senokot) 17.2 mg PO Q12H PRN PRN Reason: Moderate Constipation Sodium Chloride (Ns Flush) 2 ml IV.FLUSH PRN PRN PRN Reason: FLUSH AFTER USING IV ACCESS Last Admin: 04/19/18 16:56 Dose: 2 ml Physical Exam Vital signs: Vital Signs 05/03/18 16:00 05/03/18 20:00 05/03/18 20:10 Temperature 97.9 F 98.0 F Pulse Rate 89 89 90 Respiratory Rate 16 18 18 Blood Pressure 112/55 L 109/54 L Pulse Oximetry 97 93 L 98 05/03/18 21:50 05/04/18 00:40 05/04/18 08:00 Temperature 97.9 F 97.2 F L Pulse Rate 82 80 Respiratory Rate 16 14 Blood Pressure 109/58 L 145/69 H Pulse Oximetry 99 99 98 05/04/18 09:17 Temperature Pulse Rate 99 H Respiratory Rate 16 Blood Pressure Pulse Oximetry 90 L Intake & Output 05/03/18 05/04/18 05/04/18 18:59 06:59 18:59 Intake Total 240 / 240 Output Total 20 / 20 Balance 220 / 220 Weight 57.5 kg Intake: Oral 240 / 240 Output: Wound Drainage 20 / 20 # 1 Lower Anterior Medial 20 / 20 Abdomen Other: # Voids 4 Date of Last Bowel Movement 05/02/18 # Bowel Movements 1 - Constitutional no acute distress - Routine HEENT Exam Head: Present: normocephalic Eye: Present: PERRL ENT: Present: mucous membranes moist - Routine Neck Exam Present: full ROM - Routine Respiratory Exam Present: crackles Comments: Mild crackles bilaterally lower lobes - Routine Cardiovascular Exam Present: S1, S2. Absent: gallop, rubs, S3, S4 - Routine Abdominal Exam Present: normoactive bowel sounds - Routine Extremities Exam Present: edema, full ROM, pulses intact, normal capillary refill. Absent: cyanosis, clubbing Comments: Trace edema lower extremities - Routine Skin Exam Present: intact - Routine Neurological Exam Present: oriented X3 - Detailed Neurological Exam: Coma Scale Eye Opening: Spontaneous Verbal Response: Oriented Motor Response: Obey commands Emmanuel Coma Scale Total: 15 - Routine Psychiatric Exam Present: normal affect - Urinary Catheter Management Indwelling Urethral Catheter Cath placed during this visit: yes Urethral indwelling: Yes Reason for continuing: Hourly intake/output Insertion date: 04/19/18 Female External Cath placed during this visit: yes Reason for continuing: Not indwelling catheter Insertion date: 04/29/18 Results 05/02/18 04:18 05/04/18 09:25 Comprehensive Metabolic Panel 05/04/18 Range/Units 09:25 Sodium 136 (136-145) meq/L Potassium 3.7 (3.5-5.1) meq/L Chloride 98 (98-107) meq/L Carbon Dioxide 32.1 H (21.0-32.0) meq/L BUN 12 (7-18) mg/dL Creatinine 0.56 (0.50-1.00) mg/dL Calcium 8.4 L (8.5-10.1) mg/dL Intake and Output 05/03/18 05/04/18 05/04/18 22:59 06:59 14:59 Intake Total 240 / 240 Output Total / Balance 220 / 220 Intake: Oral 240 / 240 Output: Wound Drainage / # 1 Lower Anterior Medial 20 / Abdomen Other: # Voids 4 # Bowel Movements 1 Weight 57.5 kg Assessment and Plan - Assessment (1) Atrial fibrillation with RVR Code(s): I48.91 - Unspecified atrial fibrillation Status: Resolved Onset Date: ~04/20/18 (2) Asthma exacerbation in COPD Code(s): J44.1 - Chronic obstructive pulmonary disease with (acute) exacerbation ; J45.901 - Unspecified asthma with (acute) exacerbation Status: Chronic (3) Diabetes Code(s): E11.9 - Type 2 diabetes mellitus without complications Status: Chronic (4) Alcohol use Code(s): Z78.9 - Other specified health status Status: Chronic (5) History of peptic ulcer disease Code(s): Z87.11 - Personal history of peptic ulcer disease Status: Chronic (6) Tobacco use Code(s): Z72.0 - Tobacco use Status: Chronic (7) Abdominal pain Code(s): R10.9 - Unspecified abdominal pain Status: Acute (8) Duodenal ulcer with perforation Code(s): K26.5 - Chronic or unspecified duodenal ulcer with perforation Status : Acute (9) Pneumonia Code(s): J18.9 - Pneumonia, unspecified organism Status: Acute - Plan Tele shows sinus rhythm with PVCs. Continue with current cardiac treatment plan. Overall improvement, patient is requesting to go to rehab at [facility]. Continue to increase activity as tolerated. Patient clear for discharge from cardiac standpoint. The patient was seen and evaluated by Dr. Canales who participated in care, management and decision-making. - Attending Attestation Patient seen and examined. I reviewed and agree with the evaluation and plan as presented. Patient stable from cardiac standpoint. Recommend to transfer to [facility] as planned. (3) Diabetes Qualifiers: Diabetes mellitus type: type 2 Diabetes mellitus complication status: with hyperglycemia (7) Abdominal pain Qualifiers: Abdominal location: generalized Qualified Code(s): R10.84 - Generalized abdominal pain
--- NOTE | 2018-05-04 13:18 | P.PN ---
Subjective Interval history: This is a pleasant 67 y/o Female with COPD, tobacco dependence, DM II, who came to ER with abdominal pain and abdominal distension, CT showed intra-abdominal free air and free fluid. Dr. Kelley has evaluated and will be taking for exp lap. Se received vanc and zosyn in ER, Perforated duodenal ulcer was identified. She has undergone laparoscopic repair with Michel patch. There was significant intra-abdominal contamination with abscess evacuation, irrigation, and EARNESTINE placement. She received 1300 crystalloid, EBL 10, UOP 275. She was extubated postoperatively to OR. Heart rate down to 101, normotensive. NGT has been inserted and placed to LIWS with small bilious output. had episode of Atrial Fibrillation with RVR, Followed by Pulmonary specialsit due to Respiratory insufficiency, has COPD, status post laparoscopic repair of duodenal ulcer Leukocytosis, pleural effusion status post Right thoracentesis with removal of 1200 ml of pleuritic fluid transudate, oxygen saturation over 92%, BiPAP PRN, Prednisone 10 mg BID, Diamox 500 mg IV once, ID specialist following, worsening Leukocytosis has a very large effusion questioned possible Right PNA, Status post laparoscopy for perforated Duodenal Ulcer with abscess, questioned post operative abscess, clinically improving, recommended to change Cefepime to Levaquin, continue Flagyl, and stopped Diflucan to continue antibiotics for 10 days. 05/04: stable in her bedroom, no nausea, vomit or diarrhea, in sitting position and wants to go to her Rehab facility if possible today she has already [facility] scheduled on discharge, not yet cleared by specialists. Physical Exam Vital signs: Vital Signs 05/03/18 16:00 05/03/18 20:00 05/03/18 20:10 Temperature 97.9 F 98.0 F Pulse Rate 89 89 90 Respiratory Rate 16 18 18 Blood Pressure 112/55 L 109/54 L Pulse Oximetry 97 93 L 98 05/03/18 21:50 05/04/18 00:40 05/04/18 08:00 Temperature 97.9 F 97.2 F L Pulse Rate 82 80 Respiratory Rate 16 14 Blood Pressure 109/58 L 145/69 H Pulse Oximetry 99 99 98 05/04/18 09:17 Temperature Pulse Rate 99 H Respiratory Rate 16 Blood Pressure Pulse Oximetry 90 L Intake & Output 05/03/18 05/04/18 05/04/18 18:59 06:59 18:59 Intake Total 240 / 240 Output Total / 20 Balance 220 / 220 Weight 57.5 kg Intake: Oral 240 / 240 Output: Wound Drainage # 1 Lower Anterior Medial Abdomen Other: # Voids 4 Date of Last Bowel Movement 05/02/18 # Bowel Movements 1 Narrative: GENERAL: Patient in sitting position, no acute distress. SKIN: Warm and dry. HEAD: Normocephalic. EYES: No scleral icterus. No injection or drainage. NECK: Supple, trachea midline. No JVD or lymphadenopathy. CARDIOVASCULAR: Regular rate and rhythm without murmurs, gallops, or rubs. RESPIRATORY: Breath sounds equal bilaterally. No accessory muscle use. GASTROINTESTINAL: Abdomen soft, non-tender, nondistended. MUSCULOSKELETAL: No cyanosis, or edema. Abdominal incisions clean dry and intact. BACK: Nontender without obvious deformity. No CVA tenderness. - Urinary Catheter Management Indwelling Urethral Catheter Cath placed during this visit: yes Urethral indwelling: Yes Reason for continuing: Hourly intake/output Insertion date: 04/19/18 Female External Cath placed during this visit: yes Reason for continuing: Not indwelling catheter Insertion date: 04/29/18 Results - Labs CBC & Chem 7: 05/02/18 04:18 05/04/18 09:25 Laboratory Results - last 24 hr 05/04/18 05/04/18 09:25 09:25 Sodium 136 Potassium 3.7 Chloride 98 Carbon Dioxide 32.1 H Anion Gap 6 BUN 12 Creatinine 0.56 Estimated GFR Greater than 89 Random Glucose 128 H Calcium 8.4 L Phosphorus 2.0 L Cancelled Magnesium 1.2 L - Procedures Exploratory laparotomy repair of perforated duodenal ulcer with Michel patch Assessment and Plan - Plan 67-year-old female with perforated duodenal ulcer: //Perforated duodenal ulcer s/p ex laparoscopy with Michel Patch Dr. Kelley 04/19. Continue postoperative care, pain control general surgery following. Short course of antibiotics for peritoneal contamination as per below, then H pylori treatment Patient did not tolerate p.o. Augmentin and p.o. Diflucan recommended by ID specialist to continue Levaquin and Flagyl for 10 days. Encourage ambulation. =Hemoglobin stable. //COPD on 2.5-3 L home O2 //Fluid overload on 04/27 //Right sided pleural effusion. status post Thoracentesis improving condition. Ongoing tobacco abuse = 04/27. Repeat chest x-ray with worsening what appears to be edema. We'll discontinue IV fluids and diuresis.. = 04/28. Worsening respiratory status. Does not appear to be CHF as BNP is not elevated. Will repeat chest x-ray. Transfer to ICU. Notified pulmonology. =04/29. Status post right-sided thoracentesis. Appreciate ICU assistance. diuresis again today. Pulmonology following. Appreciate assistance. = 04/30. Respiratory status stable. Continue fluid restrictions. Recheck labs tomorrow. =-05/01. Respiratory status improved on 2 L nasal cannula. Pleural effusion culture is negative at this time. Repeat chest x-ray tomorrow. cont to monitor = 05/02. Chest x-ray with improving effusions. No mild. Appreciate pulmonology assistance. status post thoracentesis. //Afib with RVR: at this time on sinus rhythm with PVCs, the risk of manager intermediate anticoagulation overweight the benefit. as per agronomy specialist. Rate currently controlled. Chads 2 score of 2 she needs to be anticoagulated when cleared by general surgery. //Alcohol abuse Thiamine 100 mg IV daily will change to p.o. Monitor for signs and symptoms of alcohol withdrawal. //Elevated lipase - No evidence of pancreatitis on CT, may be secondary to inflammation from duodenal perf. //Sepsis secondary to perforated duodenal ulcer with abscess and intra- abdominal contamination. F/u blood culture negative to date. Previously on zosyn, diflucan, levaquin since April 20 for intraabdominal contamination. General surgery has changed to Augmentin, Diflucan on 04/24 however will restart IV Zosyn due to poor p.o. intake and not able to tolerate p.o. medication. now on Levaquin and Flagyl. 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 No active symptoms of C diff prior to this presentation. = ID following. Appreciate assistance. //Chronic prednisone use as per hearing instrument specialist on Prednisone 10 mg BID. //Leukocytosiscould be due to previous prednisone use, which is now on hold. Concern for underlying infection and will check portable chest x-ray and sputum cultures. Repeat CBC in the morning PROPH: SCD for DVT prophylaxis. Protonix Code Status: Full Code Discussed Condition With: Patient and nurse Miss Zarate Discharge Planning: Hopefully discharge to rehab/SNF later today or in am tomorrow. We will need infectious disease, surgery clearance.
[2018-05-04 13:31] VITALS: BP 124/62; PULSE 92; RESP 18; TEMP 97.9; O2SAT 98
--- NOTE | 2018-05-04 14:01 | P.PN ---
Subjective Interval history: alert no SOB Physical Exam Vital signs: Vital Signs 05/03/18 16:00 05/03/18 20:00 05/03/18 20:10 Temperature 97.9 F 98.0 F Pulse Rate 89 89 90 Respiratory Rate 16 18 18 Blood Pressure 112/55 L 109/54 L Pulse Oximetry 97 93 L 98 05/03/18 21:50 05/04/18 00:40 05/04/18 08:00 Temperature 97.9 F 97.2 F L Pulse Rate 82 80 Respiratory Rate 16 14 Blood Pressure 109/58 L 145/69 H Pulse Oximetry 99 99 98 05/04/18 09:17 05/04/18 12:00 Temperature 97.9 F Pulse Rate 99 H 92 H Respiratory Rate 16 18 Blood Pressure 124/62 Pulse Oximetry 90 L 98 Intake & Output 05/03/18 05/04/18 05/04/18 18:59 06:59 18:59 Intake Total 240 / 240 Output Total 20 / 20 Balance 220 / 220 Weight 57.5 kg Intake: Oral 240 / 240 Output: Wound Drainage # 1 Lower Anterior Medial 20 / 20 Abdomen Other: # Voids 4 Date of Last Bowel Movement 05/02/18 # Bowel Movements 1 Narrative: Alert and awake Abd: sutures in place; EARNESTINE with serous drainage - Urinary Catheter Management Indwelling Urethral Catheter Cath placed during this visit: yes Urethral indwelling: Yes Reason for continuing: Hourly intake/output Insertion date: 04/19/18 Female External Cath placed during this visit: yes Reason for continuing: Not indwelling catheter Insertion date: 04/29/18 Results - Labs CBC & Chem 7: 05/02/18 04:18 05/04/18 09:25 Laboratory Results - last 24 hr 05/04/18 05/04/18 09:25 09:25 Sodium 136 Potassium 3.7 Chloride 98 Carbon Dioxide 32.1 H Anion Gap 6 BUN 12 Creatinine 0.56 Estimated GFR Greater than 89 Random Glucose 128 H Calcium 8.4 L Phosphorus 2.0 L Cancelled Magnesium 1.2 L - Procedures Exploratory laparotomy repair of perforated duodenal ulcer with Michel patch Assessment and Plan - Plan COPD RESPIRATORY FAILURE ON O2 PLEURAL EFFUSION POST THORACENTESIS S/P ABDOMINAL SURGERY IMPROVED PLAN O2 NEEDED BRONCHODILATOR THERAPY INCREASE ACTIVITY OK FOR D/C OFFICE 2 WEEKS
--- NOTE | 2018-05-04 14:05 | P.DS ---
Date of admission: 04/19/18 19:07 Primary care physician: Robles French MD Attending physician on discharge: Raymond Solis Anticipated date of discharge: 05/04/18 Brief History from admission: 67-year-old female with past medical history of COPD on 2.5-3 L O2 with ongoing tobacco abuse, diabetes who presented to [facility] emergency department with 2 day history of abdominal pain and distension. She states that the pain started on Tuesday 04/17 and she drank alcohol most of the day in order to ease the pain. She also took Goody powder. She has been nauseated and had several episodes of vomiting without hematemesis. Has been having normal formed stools. Denies fever. She has also been SOB, no cough. She presented with tachycardia 120-130s, normotensive. CT showed intra- abdominal free air and free fluid. Dr. Kelley has evaluated and will be taking for exp lap. Se received vanc and zosyn in the ED. Evaluated again postoperatively. Perforated duodenal ulcer was identified. She has undergone laparoscopic repair with Michel patch. There was significant intra -abdominal contamination with abscess evacuation, irrigation, and EARNESTINE placement. She received 1300 crystalloid, EBL 10, UOP 275. She was extubated postoperatively to NC. Heart rate down to 101, normotensive. NGT has been inserted and placed to LIWS with small bilious output. DS: Diagnosis - Discharge Diagnosis (1) Intra-abdominal free air of unknown etiology Status: Acute (2) Pancreatitis Status: Acute (3) Asthma exacerbation in COPD Status: Chronic (4) Free intraperitoneal air Status: Acute (5) History of peptic ulcer disease Status: Chronic (6) Alcohol use Status: Chronic (7) Tobacco use Status: Chronic (8) Diabetes Status: Chronic DS: Summary Hospital Course: This is a pleasant 67 y/o Female with COPD, tobacco dependence, DM II, who came to ER with abdominal pain and abdominal distension, CT showed intra-abdominal free air and free fluid. Dr. Kelley has evaluated and will be taking for exp lap. Se received vanc and zosyn in ER, Perforated duodenal ulcer was identified. She has undergone laparoscopic repair with Michel patch. There was significant intra-abdominal contamination with abscess evacuation, irrigation, and EARNESTINE placement. She received 1300 crystalloid, EBL 10, UOP 275. She was extubated postoperatively to NC. Heart rate down to 101, normotensive. NGT has been inserted and placed to LIWS with small bilious output. had episode of Atrial Fibrillation with RVR, Followed by Pulmonary specialsit due to Respiratory insufficiency, has COPD, status post laparoscopic repair of duodenal ulcer Leukocytosis, pleural effusion status post Right thoracentesis with removal of 1200 ml of pleuritic fluid transudate, oxygen saturation over 92%, BiPAP PRN, Prednisone 10 mg BID, Diamox 500 mg IV once, ID specialist following, worsening Leukocytosis has a very large effusion questioned possible Right PNA, Status post laparoscopy for perforated Duodenal Ulcer with abscess, questioned post operative abscess, clinically improving, recommended to change Cefepime to Levaquin, continue Flagyl, and stopped Diflucan to continue antibiotics for 10 days. 05/04: stable in her bedroom, no nausea, vomit or diarrhea, in sitting position and wants to go to her Rehab facility if possible today she has already [facility] scheduled on discharge, not yet cleared by specialists. Exploratory laparotomy repair of perforated duodenal ulcer with Michel patch Assessment and Plan - Plan 67-year-old female with perforated duodenal ulcer: //Perforated duodenal ulcer s/p ex laparoscopy with Michel Patch Dr. Kelley 9. Continue postoperative care, pain control general surgery following. Short course of antibiotics for peritoneal contamination as per below, then H pylori treatment Patient did not tolerate p.o. Augmentin and p.o. Diflucan recommended by ID specialist to continue Levaquin and Flagyl for 10 days. Encourage ambulation. =Hemoglobin stable. //COPD on 2.5-3 L home O2 //Fluid overload on 04/27 //Right sided pleural effusion. status post Thoracentesis improving condition. Ongoing tobacco abuse = 04/27. Repeat chest x-ray with worsening what appears to be edema. We'll discontinue IV fluids and diuresis.. = 04/28. Worsening respiratory status. Does not appear to be CHF as BNP is not elevated. Will repeat chest x-ray. Transfer to ICU. Notified pulmonology. =04/29. Status post right-sided thoracentesis. Appreciate ICU assistance. diuresis again today. Pulmonology following. Appreciate assistance. = 04/30. Respiratory status stable. Continue fluid restrictions. Recheck labs tomorrow. =-05/01. Respiratory status improved on 2 L nasal cannula. Pleural effusion culture is negative at this time. Repeat chest x-ray tomorrow. cont to monitor = 05/02. Chest x-ray with improving effusions. No mild. Appreciate pulmonology assistance. status post thoracentesis. //Afib with RVR: at this time on sinus rhythm with PVCs, the risk of intermediate teacher anticoagulation overweight the benefit. as per contract administration specialist. Rate currently controlled. //Alcohol abuse Thiamine 100 mg IV daily will change to p.o. Monitor for signs and symptoms of alcohol withdrawal. //Elevated lipase - No evidence of pancreatitis on CT, may be secondary to inflammation from duodenal perf. //Sepsis secondary to perforated duodenal ulcer with abscess and intra- abdominal contamination. F/u blood culture negative to date. Previously on zosyn, diflucan, levaquin since April 20 for intraabdominal contamination. General surgery has changed to Augmentin, Diflucan on 04/24 however will restart IV Zosyn due to poor p.o. intake and not able to tolerate p.o. medication. now on Levaquin and Flagyl. 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 No active symptoms of C diff prior to this presentation. = ID following. Appreciate assistance. //Chronic prednisone use as per nuclear operations specialist on Prednisone 10 mg BID. //Leukocytosiscould be due to previous prednisone use, which is now on hold. Concern for underlying infection and will check portable chest x-ray and sputum cultures. Repeat CBC in the morning PROPH: SCD for DVT prophylaxis. Protonix Code Status: Full Code Discussed Condition With: Patient and nurse Miss Zarate Discharge Planning: Hopefully discharge to rehab/SNF later today or in am tomorrow. We will need infectious disease, surgery clearance. - Time Spent with Patient Total time spent providing and/or coordinating discharge services: Greater than 30 minutes - Quality: VTE Deep Vein Thrombosis/Pulmonary Embolism Present on Admission: No Exam Vital signs: Vital Signs 05/03/18 16:00 05/03/18 20:00 05/03/18 20:10 Temperature 97.9 F 98.0 F Pulse Rate 89 89 90 Respiratory Rate 16 18 18 Blood Pressure 112/55 L 109/54 L Pulse Oximetry 97 93 L 98 05/03/18 21:50 05/04/18 00:40 05/04/18 08:00 Temperature 97.9 F 97.2 F L Pulse Rate 82 80 Respiratory Rate 16 14 Blood Pressure 109/58 L 145/69 H Pulse Oximetry 99 99 98 05/04/18 09:17 05/04/18 12:00 Temperature 97.9 F Pulse Rate 99 H 92 H Respiratory Rate 16 18 Blood Pressure 124/62 Pulse Oximetry 90 L 98 Intake & Output 05/03/18 05/04/18 05/04/18 18:59 06:59 18:59 Intake Total 240 / 240 Output Total Balance 220 / 220 Weight 57.5 kg Intake: Oral 240 / 240 Output: Wound Drainage # 1 Lower Anterior Medial Abdomen Other: # Voids 4 Date of Last Bowel Movement 05/02/18 # Bowel Movements 1 Narrative: GENERAL: Patient in sitting position, no acute distress. SKIN: Warm and dry. HEAD: Normocephalic. EYES: No scleral icterus. No injection or drainage. NECK: Supple, trachea midline. No JVD or lymphadenopathy. CARDIOVASCULAR: Regular rate and rhythm without murmurs, gallops, or rubs. RESPIRATORY: Breath sounds equal bilaterally. No accessory muscle use. GASTROINTESTINAL: Abdomen soft, non-tender, nondistended. MUSCULOSKELETAL: No cyanosis, or edema. Abdominal incisions clean dry and intact. BACK: Nontender without obvious deformity. No CVA tenderness. Results Procedures completed during hospitalization: Exploratory laparotomy repair of perforated duodenal ulcer with Michel patch Labs on day of discharge: Labs from last 24 hours 05/04/18 05/04/18 09:25 09:25 Sodium 136 Potassium 3.7 Chloride 98 Carbon Dioxide 32.1 H Anion Gap 6 BUN 12 Creatinine 0.56 Estimated GFR Greater than 89 Random Glucose 128 H Calcium 8.4 L Phosphorus Cancelled 2.0 L Magnesium 1.2 L - Impressions ITS Impressions Chest CTA 04/19/18 16:41 CONCLUSION: 1. No evidence of deep venous thrombosis. 2. Ascites in the upper abdomen and multiple small collections of free air. 3. The esophagus is prominent with air and fluid. These findings were called to [facility] the emergency room at 1852 hours. Abdomen/Pelvis CT 04/30/18 00:00 CONCLUSION: 1. Loculated fluid collection in Castellanos's pouch measuring up to 4.3 x 1.7 cm. Etiology unclear but cannot exclude small abscess. Trace loculated fluid also noted posterior to the right lobe liver. 2. Placement of a drain along the peripheral aspect of the right side of the liver with tip extending anterior to the pancreas. 3. Development of small bilateral pleural effusions with basilar lung disease suspicious for pneumonic infiltrate. 4. Previous free air and most free fluid has resolved. Bladder is distended. Previous left hip replacement. 5. Probable mild colitis. Gallbladder Ultrasound 04/30/18 00:00 CONCLUSION: 1. Small right perinephric fluid collection. Echogenic fatty liver. Chest X-Ray 05/02/18 00:00 CONCLUSION: Decreased bilateral infiltrates, now mild. Discharge Plan - Discharge Disposition Patient Disposition: Discharge to SNF - Discharge Condition Condition: Stable - Discharge Order Discharge Orders: Discharge Order (Routine); Ordered 05/04/18 Ordered By: Raymond Solis General Surgery Clear for Discharge (Routine); Ordered 05/04/18 Ordered By: Tiago Kelley Pulmonology Clear for Discharge (Routine); Ordered 05/04/18 Ordered By: Rojelio Serrato - Discharge Details Anticipated Discharge Date: 05/04/18 - Physicians Team Primary Care Provider: Robles French Attending Provider: Raymond Solis Other Providers: Tiago Kelley MD ; [facility] ; [facility] ; Rojelio Serrato MD ; Christa Almazan MD ; Norma Canales MD ; Rohith Mason MD
[2018-05-04] MEDS ORDERED: Magnesium Sulfate Inj 2 GM in Sodium Chlor 0.9% Inj 96 ML IV.SIG ONE (15:00)
== END 2018-05-04 17:26 ==
LOC: NEPC 14:53 → NEDA 19:07 → N03 23:44 → N07 04-23 21:48 → N03 04-28 13:45 → N07 05-02 00:12
PROVIDERS: ADMIT Internal Medicine; ATTEND Internal Medicine